=== PATIENT | male | born 1960 | race Caucasian/White ===

== ENCOUNTER 2021-07-27 13:04 | Outpatient (CLI) | payer MEDICARE, SELFPAY ==
--- NOTE | 2021-07-27 13:12 | CT_ITS ---
STUDY: LOW DOSE CT LUNG CANCER SCREENING REASON FOR EXAM: Male, 60 years old. NICOTINE DEPENDENCE. The patient smoked 1 pack per day for 40 years. RADIATION DOSAGE (If Supplied By Facility): CTDIvol = ( 3.02 ) mGy, DLP = ( 109.10 ) mGycm TECHNIQUE: No contrast was administered. Low dose technique was utilized (average mAS-38 and kVp 120). 1.25 mm axial source images with a slice interval of 1.25-mm were reconstructed in lung windows. 2.5 mm axial source images with a slice interval of 2.5-mm were reconstructed in lung windows. 5.0 mm axial source images with a slice interval of 5.0-mm were reconstructed in soft tissue windows. Nodule measured using lung windows on PACS and/or independent workstation with automated measurement of minimum and maximum diameter. Nodule measurement reported as average diameter rounded to the nearest whole number. Growth is defined as an increase ins size of greater than 1.5 mm. COMPARISON: None. NODULES: There is a 2.4 cm x 2.5 cm pleural-based nodular density in the posterior medial segment of the right lower lobe. Correlation with a PET scan is recommended. Emphysema: Hyperinflation. Diffuse emphysematous changes with bullous formation worse in the upper lobes. There is evidence of scarring at the lung apices worse on the right side. Increased interstitial markings at the lung bases with areas of confluence and bronchiectasis and subpleural blebs in keep with the scarring. Similar appearance is also seen along the posterior lateral aspect of the right upper lobe as well as the anterior medial aspect of the left upper lobe. Endobronchial lesion: None Aorta: Atherosclerotic plaque formation of the aortic arch. Coronary arteries: Coronary artery calcification. Heart: Unremarkable Pulmonary artery: Unremarkable Mediastinal nodes: Small benign appearing mediastinal lymph nodes. Other chest and abdominal findings: There is a 3 cm x 2.5 cm cyst in the anterior aspect of the dome of the liver. CT/Low Dose CT Lung Screening IMPRESSION: Lung-RADS category 4B - Chest CT with or without contrast, PET/CT and/or tissue sampling can be obtained depending on the probability of malignancy and comorbidities. IMPORTANT NOTES FOR USE: ACR Lung-RADS Version 1.1 Assessment Categories Release Date: 2018 Category: Coded 0-4 bases on nodule(s) with highest degree of suspicion. Negative screen is defined as categories 1 and 2; a positive screen is defined as categories 3 and 4. Category 3 and 4A nodules that are unchanged on interval CT should be coded as category 2, and individuals returned to screening in 12 months. Category 4X: Category 3 or 4 nodules with additional imaging findings that increase the suspicion of lung cancer, such as spiculation, GGN that doubles in size in 1 year, enlarged lymph notes, etc. Category Modifiers: S (significant finding unrelated to lung cancer) Electronically Signed: Cortes Valverde MD at 13:52 EST , Service support ,
== END 2021-07-27 23:59 | disposition short-term general hospital (02) ==
PROVIDERS: PCP Nurse Practitioner Family; Referring Provider Internal Medicine Pulmonary Disease; Visit Provider Internal Medicine Pulmonary Disease
DX: Z87.891 Personal history of nicotine dependence (principal)
CPT/HCPCS: 71271

== ENCOUNTER 2021-08-26 09:21 | Outpatient (CLI) | payer MEDICARE, SELFPAY ==
--- NOTE | 2021-08-26 10:30 | PET_ITS ---
EXAMINATION: FDG PET/CT INDICATIONS: A 61-year-old male with history of pulmonary nodularity. COMPARISON EXAMINATION: CT of the chest dated 07/27/21 INDEX LESION SIZE SUV INTERPRETATION Right lower lung-right lower lobe, linear 1.8 Quantitative criteria for viable neoplasm are not fulfilled, sequential radiologic investigation recommended Left upper lung-left upper lobe 1.0 (max) Quantitative criteria for viable neoplasm are not fulfilled, sequential radiologic investigation recommended TECHNIQUE: Following the intravenous administration of 14.17 mCi of F-18 deoxyglucose via the left antecubital fossa, multiplanar image acquisitions of the neck, chest, abdomen and pelvis to level of mid thigh, obtained at one hour post radiopharmaceutical administration contemporaneously interpreted with the current CT of the neck, chest, abdomen and pelvis to level of mid thigh, dated 08/26/[address] of the chest dated 07/27/21 reveal: SERUM GLUCOSE LEVEL: 96 mg/dl. HEIGHT: 75 inches. WEIGHT: 174 lbs. FINDINGS: 1. A non-nodular increase in glucose metabolism is defined in the right mid-lower posterior lung-right lower lobe generating a calculated maximal standard uptake value of 1.8. Uptake appears to correspond to interstitial changes defined on CT of the chest dated 08/26/21. 2. Subtle increase 18-F labeled glucose metabolism is manifest in the left mid anteromedial lung-left upper lobe corresponding to a linear density defined on CT of the chest dated 08/26/21. The calculated maximal standard uptake value is 1.0. Quantitative criteria for viable neoplasm are not fulfilled. 3. Normal physiologic distribution of the radiopharmaceutical is apparent in the hepatic (3.0) and splenic parenchyma, both renal units, bladder and visualized intestinal tract. The visualized portion of the cerebral cortical-subcortical structures demonstrate symmetric and preserved glucose metabolism. Diffuse radiopharmaceutical concentration is noted in all four quadrants of the abdomen and pelvis. Prominent radiopharmaceutical concentration is identified in the left ventricular myocardium commensurate with the fed state. Facilitated tracer uptake is noted in the anterior neck, laryngeal structures extending from the anterior commissure to the arytenoid cartilage without evidence of soft tissue thickening most consistent with physiologic tracer uptake. Prominent tracer uptake is noted in the ascending and descending thoracic, abdominal aorta commensurate with activated leukocytes associated with atherosclerotic plaque formation. Pertinent CT findings are as follows: CHEST: Emphysematous changes are defined in the bilateral upper lung zones. Additional parenchymal changes manifest in the bilateral hemithorax demonstrate no evidence of quantitatively significant increased FDG uptake. A nodular density visualized in the right lower posteromedial lung-right lower lobe is non-glucose avid. There is atherosclerotic calcification defined in the thoracic aorta without evidence of dilatation-aneurysm formation. Coronary arterial calcification is observed. ABDOMEN AND PELVIS: Photopenic abnormalities are noted within the hepatic parenchyma associated with attenuation defects manifest on CT of the abdomen and pelvis dated 08/26/21 commensurate with cyst formation. There is atherosclerotic calcification defined in the abdominal aorta without evidence of dilatation-aneurysm formation. Pelvic arterial calcification is demonstrated. Calcifications are manifest within the pancreatic head-uncinate process without evidence of quantitatively significant increased glucose metabolism. Bilateral inguinal soft tissue with fatty hilus is ametabolic. Dystrophic calcification is manifest within the prostate gland without evidence of facilitated FDG uptake. SKELETAL: Degenerative changes are noted in the cervical, thoracic and lumbar spine without evidence of increased radiopharmaceutical concentration. PET/PET/CT Tumor Base -Thigh Init IMPRESSION: 1. NEGATIVE EXAMINATION. There is no definitive quantitative scintigraphic evidence of viable neoplasm. 2. Increased fluorine labeled glucose metabolism defined in the right lower lung-right lower lobe corresponding to facilitated interstitial changes and left upper lung-left upper lobe corresponding to a non-calcified linear density do not fulfill quantitative criteria for viable neoplasm. (Huertas et al, Annals of Internal Medicine, 138:724, 2003). 3. Metabolic and/or anatomic stability may be ensured in the bilateral lung abnormalities with repeat FDG PET study and/or CT of the thorax in 3-6 months if clinically indicated. (Xiu, Journal of Nuclear Medicine 45:88, P2004 Jed, Seminars in Thoracic and Cardiovascular Surgery 14:292, 2002). 4. The nodular parenchymal density noted in the right lower posteromedial lung-right lower lobe demonstrates no evidence of quantitatively significant, discernible increased tracer uptake. Electronic Signature Zev Damon D.O. Accurate Quantification of SUVs for this report are calculated using the exclusive [employer], ([place].S. Patent No. 10, [id number] 983). Standardization and correction of the FDG SUV metric exclusively available with [employer] intellectual property, allow for vendor non-specific objective quantitative sequential FDG PET-CT comparison and otherwise unobtainable optimization of the sensitivity and specificity of the examination. Electronically Signed: Zev Damon DO at 19:16 EST ,
[2021-08-26 10:35] LABS: Absolute Neutrophil Count 3.4 X10^3/uL (2.0-7.7); Basophil# 0.09 X10^3/uL; Basophil% 1.3 % (0-1); Eosinophil# 0.27 X10^3/uL; Eosinophils% 3.8 % (0-5); Hematocrit 48.8 % (40-54); Hemoglobin 16.5 g/dL (13.0-16.5); Mean Corp Hgb Conc 33.8 g/dL (32-36); Mean Corpuscular Volume 94.8 fL (80-94); Mean Platelet Vol. 10.7 fl (6.2-12.0); Monocyte# 0.59 X10^3/uL; Monocyte% 8.3 % (0-10); NRBC Flagged by Analyzer 0 % (0-5); Neutrophil # 3.43 X10^3/uL (2.7-7.7); Neutrophil % 48.3 % (47-70); Platelet Count 314 K/mm3 (150-450); RBC Distribution Width CV 13.1 % (11.6-14.6); RBC Distribution Width SD 45.8 fl (35.1-43.9); Red Blood Count 5.15 M/mm3 (4.6-6.2); White Blood Count 7.1 K/mm3 (4.4-11.0)
[2021-08-26 10:37] LABS: Erythrocyte Sedimentation Rate 9 mm/hr (0-20)
[2021-08-26 13:33] LABS: AST(SGOT) 13 U/L (15-37); Alanine Aminotransfer ALT/SGPT 18 U/L (16-61); Albumin, Serum 3.7 g/dL (3.2-5.0); Alkaline Phosphatase 71 U/L (45-117); Anion Gap 2 (5-15); BUN 8 mg/dL (7-18); Bilirubin, Direct 0.11 mg/dL (0.00-0.30); CRP < 2.90 mg/L (0.0-3.0); Chloride 109 mmol/L (98-107); Creatinine, Serum 0.82 mg/dL (0.70-1.30); EST Glomerular Filtration Rate 101 mL/min (>60); Est Glom Filt Rate - Afr Amer 123 mL/min (>60); Globulin 3.9 g/dL (2.2-4.2); Potassium 4.2 mmol/L (3.5-5.1); Protein, Total 7.6 g/dL (6.4-8.2); Sodium Level 139 mmol/L (136-145)
[2021-08-27 15:08] LABS: Anti-Scleroderma-70 AB <0.2 AI (0.0-0.9); SJOGREN'S Anti-SS-A test 0.2 AI (0.0-0.9); SJOGREN'S Anti-SS-B test < 0.2 AI (0.0-0.9)
[2021-08-28 00:06] LABS: Angiotensin Convert Enzyme 42 U/L (14-82); Cytoplasmic Ab (C-ANCA) <1:20 titer (Neg:<1:20)
[2021-08-28 11:21] LABS: Anti-Smooth Muscle ABS 7 Units (0-19); CCP IgG Antibodies 6 units (0-19); Perinuclear Ab (P-ANCA) <1:20 titer (Neg:<1:20)
[2021-08-28 12:07] LABS: ANTINUCLEAR ANTIBODIES DIRECT Negative (Negative); Anti-dsDNA Ab <1 IU/mL (0-9)
== END 2021-08-26 23:59 | disposition home or self-care (01) ==
PROVIDERS: PCP Nurse Practitioner Family; Referring Provider Internal Medicine Pulmonary Disease; Visit Provider Internal Medicine Pulmonary Disease
DX: J84.112 Idiopathic pulmonary fibrosis (principal); R91.1 Solitary pulmonary nodule
CPT/HCPCS: 78815; 80051; 80076; 82164; 82565; 83516; 84520; 85025; 85652; 86038; 86140; 86200; 86225; 86235; 86256; 86431; A9552

== ENCOUNTER 2023-08-29 14:22 | Inpatient (IN) | payer MEDICARE, SELFPAY ==
[2023-08-29] VITALS (7 sets, daily range): BP systolic 115–151; BP diastolic 69–105; PULSE 93–115; RESP 15–21; TEMP 36.7–37.2; O2SAT 91–100; BMI 23.5; BMI 18.3
--- NOTE | 2023-08-29 14:32 | CT_ITS ---
STUDY: CT LUMBAR SPINE WITHOUT CONTRAST REASON FOR EXAM: Male, 63 years old. back pain Pt experiencing multiple falls since having the flu approx 3 weeks ago. Drinks approx 12 beers daily. Was oppositional to coming with ems but police told pt he had to. Pt was ok with that. Denied SI. RADIATION DOSAGE (If Supplied By Facility): CTDIvol = ( 13.82 ) mGy, DLP = ( 546.53 ) mGycm TECHNIQUE: The patient was scanned in a multi detector CT scanner. High resolution transaxial imaging was performed. Images were obtained from to . Sagittal and coronal images were reconstructed. Individualized dose optimization techniques were used for this CT. COMPARISON: None FINDINGS: Normal lumbar lordosis. There is no substantial scoliosis. There is an acute compression fracture of the T12 vertebral body with moderate loss of height at approximately 60-70% and mild retropulsion of the posterior cortex that does not cause central canal stenosis. No additional vertebral body fractures are present. There are no acute fractures of the transverse processes or remaining posterior elements. No lytic or blastic lesions are seen. Numerous calcifications are seen in the head of the pancreas consistent with sequela chronic pancreatitis. 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 L1-2: Mild anterior endplate spurring. Normal disc height and morphology. Normal bilateral facet joints. Normal central canal and bilateral lateral recesses. Normal bilateral intervertebral neural foramina. L2-3: Normal endplates. Normal disc height and morphology. Normal bilateral facet joints. Normal central canal and bilateral lateral recesses. Normal bilateral intervertebral neural foramina. L3-4: Normal endplates. Normal disc height and morphology. Normal bilateral facet joints. Normal central canal and bilateral lateral recesses. Normal bilateral intervertebral neural foramina. L4-5: Normal endplates. Normal disc height and morphology. Normal bilateral facet joints. Normal central canal and bilateral lateral recesses. Normal bilateral intervertebral neural foramina. L5-S1: Minimal anterior endplate spurring and disc space narrowing without bulging. Normal bilateral facet joints. Normal central canal and bilateral lateral recesses. Normal bilateral intervertebral neural foramina. Normal visualized paraspinous soft tissue structures. CT/Spine Lumbar without Contrast IMPRESSION: 1. Acute high-grade compression fracture of the T12 vertebral body, but with mild retropulsion of the cortex. A focal kyphotic deformity is present at the T11-T12 level due to loss of T12 vertebral body height. No central canal compromise is present, however may consider consulting with interventional radiology or the spine service for possible kyphoplasty given the focal deformity. 2. Multilevel degenerative changes, as described above. Electronically Signed: Og Benavides MD at 15:23 EST ,
--- NOTE | 2023-08-29 14:33 | EKG12_ITS ---
Test Reason : Blood Pressure : / mmHG Vent. Rate : 092 BPM Atrial Rate : 092 BPM P-R Int : 162 ms QRS Dur : 080 ms QT Int : 386 ms P-R-T Axes : 070 067 066 degrees QTc Int : 477 ms Normal sinus rhythm Normal ECG Confirmed by KURT ADHIKARI, JUAN JOSÉ ([id number]), associate entertainment editor IDANIA ALANIS ([id number]) on 09/05/2023 9:51:20 AM Referred By: Confirmed By:LAW HICKS MD
--- NOTE | 2023-08-29 14:37 | ED.VIS.FALL ---
HPI HPI - Fall History of Present Illness Chief Complaint: Fall Narrative Narrative: 63-year-old male presents via EMS after after he fell this morning and could not get up. He states he was on the floor for hours and crawled to the couch and called his niece who called EMS. He is fallen very frequently since he had the flu 3 weeks ago. He states he drinks 12 beers a day. He urinates into a bucket next to him so he does not have to get up very much. Today he complains of low back pain from the fall. He denies hitting his head. He is on no medications and states he has not seen a doctor in 2 years. He denies chest or abdominal pain. No nausea or vomiting. No extremity pain. PFSH PFSH Medical History unable to obtain Home Medications NK 08/29/23 [History Last Taken Unknown] Allergy/AdvReac Type Severity Reaction Status Date / Time No Known Allergies Allergy Verified 08/29/23 14:24 Social History Smoking Status: Unknown if ever smoked ROS ROS ED ROS Narrative Constitutional: Negative for fever, chills, malaise. CVS: Negative for chest pain, syncope. Respiratory: Negative for shortness of breath. GI: Negative for abdominal pain, nausea, vomiting. Neuro: Negative for headache, motor/sensory dysfunction. EXAM Physical Exam Narrative Exam Narrative: CONST: Patient sitting in no acute distress. Disheveled, smells of urine. EYES: Normal inspection. PERRL, EOMI. Head: Normocephalic atraumatic. NECK: Normal inspection. RESP: No respiratory distress, CTAB. CVS: Regular rate and rhythm, no murmur, no gallop. ABD: Soft and nontender, no guarding or rebound, nondistended. Back: Normal inspection, bruising and tenderness diffusely over the lumbar spine. SKIN: Color normal, no rash, warm, dry, intact. EXTREMITIES: Normal appearance, full ROM upper and lower extremities, 5/5 strength, normal sensation, 2+ radial DP pulses NEURO: Oriented x4. PSYCH: Normal affect. Const Vital Signs: 08/29/23 14:24 08/29/23 14:57 Temperature 98.1 F Temperature Source Oral Pulse Rate 112 H Respiratory Rate 20 H Respiratory Effort Normal Blood Pressure 151/105 H Blood Pressure Mean 120 Pulse Ox 99 Oxygen Delivery Method Room Air Room Air MDM MDM MDM Narrative Medical decision making narrative: History gathered from: Patient and EMS Differential: Recurrent falls, back contusion, fracture, electrolyte abnormality Patient has had multiple falls over the last 3 weeks. He is alcoholic. Today fell and was on the ground for multiple hours and complains of low back pain. He denies hitting his head. He is disheveled and smells of urine. He does not look sick or toxic. BP is 151/105, HR 112, otherwise normal vital signs. He has no signs of head injury. Heart is regular rate and rhythm, coarse lung sounds from likely COPD, abdomen soft and nontender. He has bruising over the lumbar and flank area and lower lumbar tenderness. He has chronic bruising of his extremities but no acute injuries. He is moving extremities to full range of motion and distal pulses are intact. Labs show normal white count and hemoglobin and thrombocytopenia at 49. This explains his chronic bruising but he has no evidence of active bleeding. Sodium is 131. CK is 1577 with normal renal function. There is mild transaminitis from chronic alcohol use. He has no abdominal pain or tenderness. CT brain shows no acute findings. CT lumbar spine shows high-grade T12 compression fracture with mild retropulsion but no central canal compromise. His lower extremity MSPs are intact. Patient's pain was treated with IV morphine and Zofran. Case was discussed with hospitalist for admission who will order alcohol prophylaxis. Lab Data Attestation: I reviewed the patient's lab results. Labs: Laboratory Results - last 24 hr 08/29/23 08/29/23 14:45 14:51 WBC 4.6 RBC 4.40 L Hgb 14.2 Hct 39.7 L MCV 90.2 MCH 32.3 H MCHC 35.8 RDW Std Deviation 45.4 H RDW Coeff of Yousuf 13.8 Plt Count 49 L* MPV 11.9 Immature Gran % (Auto) 0.900 Neut % (Auto) 69.9 Lymph % (Auto) 12.1 L [place] % (Auto) 16.5 H Eos % (Auto) 0.2 Baso % (Auto) 0.4 Absolute Neuts (auto) 3.2 Absolute Lymphs (auto) 0.56 L Nucleated RBC % 0 Differential Comment SCANNED Diff Path Review May foll Platelet Estimate MKD DEC Sodium 131 L Potassium 3.6 Chloride 98 Carbon Dioxide 24.0 Anion Gap 9 BUN 5 L Creatinine 0.64 L Estim Creat Clear Calc 86.07 Est GFR (MDRD) Af Amer 162 Est GFR (MDRD) Non-Af 134 BUN/Creatinine Ratio 7.8 L Glucose 85 Calcium 8.7 Total Bilirubin 1.30 H AST 167 H ALT 106 H Alkaline Phosphatase 130 H Total Creatine Kinase 1577 H Total Protein 7.0 Albumin 3.4 Globulin 3.6 Albumin/Globulin Ratio 0.9 Urine Color Yellow Urine Clarity Sl. Cloudy Urine pH 7.0 Ur Specific Thompson 1.005 Urine Protein Negative Urine Glucose (UA) Normal Urine Ketones 15 H Urine Occult Blood 10 H Urine Nitrite Negative Urine Bilirubin Negative Urine Urobilinogen 1 H Ur Leukocyte Esterase Negative Urine RBC 0-5 SEEN Urine WBC 0 SEEN Ur Squamous Epith Cells 0 SEEN Urine Bacteria 0 SEEN Urine Mucus 0 SEEN Radiography Diagnostic Testing: Clinical Impression(s) from Imaging Studies Lumbar Spine CT 08/29/23 14:32 IMPRESSION: 1. Acute high-grade compression fracture of the T12 vertebral body, but with mild retropulsion of the cortex. A focal kyphotic deformity is present at the T11-T12 level due to loss of T12 vertebral body height. No central canal compromise is present, however may consider consulting with interventional radiology or the spine service for possible kyphoplasty given the focal deformity. 2. Multilevel degenerative changes, as described above. Electronically Signed: Og Benavides MD at 15:23 EST Reading Location ID and State: [address] [place] [address] , Service support , Chest X-Ray 08/29/23 15:06 IMPRESSION: 1. No demonstrated consolidation or infiltrates or pleural effusion. Mild cystic emphysematous changes and hyperinflation of both lungs noted. 2. The patient has an acute T12 vertebral body compression deformity not visualized by plain film was seen on the CT of the lumbar spine performed on the same day. Electronically Signed: Og Benavides MD at 15:25 EST Reading Location ID and State: [facility] / [place] , Service support , Brain CT 08/29/23 15:12 IMPRESSION: 1. Chronic involutional changes of the brain. Electronically Signed: Og Benavides MD at 15:31 EST , ED attending interpretation of 1-view chest x-ray shows normal heart size, no displaced rib fracture or pneumothorax. EKG Initial EKG: Attestation: I personally reviewed and interpreted this EKG as follows: Interpretation: Sinus Rhythm and No Acute Injury Pattern Comments: Normal sinus rhythm at 92 bpm Normal intervals, no acute ischemic changes Discharge Plan Triage Chief Complaint: Fall ED Midlevel Provider: Li Ashley ED Provider: Ida Blanca Dx/Rx/DC Orders Clinical Impression: Recurrent falls, Alcohol abuse, Thrombocytopenia, T12 compression fracture, Acute hyponatremia, Transaminitis Primary Care Provider: Care Physician,No Primary
--- NOTE | 2023-08-29 15:00 | ED.RN ---
pt presents to ER covered in urine, disheveled with inappropriate responses to questions. multiple bruises noted on the patients body in various stages of healing. pt states this is from when he falls. does not know the last time he fell. states I fall every time that I stand up . patient c/o pain and states I hurt all over but is not able to describe any specific injury. patient oriented to self and place. states he drinks about a 12 pack a day. had last drink today.
[2023-08-29 15:04] LABS: Bacteria 0 SEEN /hpf (None Seen); Color, Urine Yellow (Yellow); Glucose, Dipstick Normal (Normal); Ketone-Dipstick 15 mg/dl (Negative); Leukocyte Esterase-Dipstick Negative /ul (Negative); Mucous, Urine 0 SEEN /hpf (<or=2+); Nitrite-Dipstick Negative (Negative); Occult Blood-Urine 10 /ul (Negative); Protein-Dipstick Negative (Negative); Specific Gravity, Urine 1.005 (1.002-1.030); Squamous Epithelial Cells - UA 0 SEEN /hpf (0-5); Urine Bilirubin Dipstick Negative (Negative); Urine Clarity Sl. Cloudy (Clear); Urine Urobilinogen 1 mg/dl (Normal); White Blood Cells 0 SEEN /hpf (0-5)
--- NOTE | 2023-08-29 15:06 | RAD_ITS ---
STUDY: X-RAY CHEST REASON FOR EXAM: Male, 63 years old. fall TECHNIQUE: 2 AP portable view of the chest. COMPARISON: None. FINDINGS: No demonstrated consolidation or infiltrates or pleural effusion. Mild cystic emphysematous changes and hyperinflation of both lungs noted. The lungs are clear and expanded. There is no demonstrated pleural abnormality. Normal size heart. Normal mediastinum and wyatt. Normal visualized pulmonary arteries. There is atherosclerotic tortuosity of the aortic arch and descending thoracic aorta. There are diffuse degenerative changes of the visualized thoracic spine. Normal visualized ribs, clavicles, and shoulders. There is no demonstrated abnormality of the visualized soft tissue structures of the upper abdomen. RAD/Chest 1 View (Portable) IMPRESSION: 1. No demonstrated consolidation or infiltrates or pleural effusion. Mild cystic emphysematous changes and hyperinflation of both lungs noted. 2. The patient has an acute T12 vertebral body compression deformity not visualized by plain film was seen on the CT of the lumbar spine performed on the same day. Electronically Signed: Og Benavides MD at 15:25 EST ,
[2023-08-29 15:08] LABS: Absolute Lymphocyte Count 0.56 X10^3/uL (0.83-4.51); Absolute Neutrophil Count 3.2 X10^3/uL (2.0-7.7); Basophil# 0.02 X10^3/uL; Basophil% 0.4 % (0-1); Eosinophil# 0.01 X10^3/uL; Eosinophils% 0.2 % (0-5); Hematocrit 39.7 % (40-54); Hemoglobin 14.2 g/dL (13.0-16.5); Lymphocyte # 0.56 X10^3/ul (0.83-4.51); Lymphocyte % 12.1 % (19-41); Mean Corp Hgb Conc 35.8 g/dL (32-36); Mean Corpuscular Hgb 32.3 pg (27.0-32.0); Mean Corpuscular Volume 90.2 fL (80-94); Mean Platelet Vol. 11.9 fl (6.2-12.0); Monocyte# 0.76 X10^3/uL; Monocyte% 16.5 % (0-10); NRBC Flagged by Analyzer 0 % (0-5); Neutrophil # 3.23 X10^3/uL (2.7-7.7); Neutrophil % 69.9 % (47-70); POSITIVE COUNT YES; POSITIVE DIFFERENTIAL YES; RBC Distribution Width CV 13.8 % (11.6-14.6); RBC Distribution Width SD 45.4 fl (35.1-43.9); White Blood Count 4.6 K/mm3 (4.4-11.0)
[2023-08-29 15:12] LABS: Red Blood Cells-Urine 0-5 SEEN /hpf (0-5)
--- NOTE | 2023-08-29 15:12 | CT_ITS ---
STUDY: CT BRAIN WITHOUT CONTRAST REASON FOR EXAM: Male, 63 years old. Head injury RADIATION DOSAGE (If Supplied By Facility): CTDIvol = ( 44.99 ) mGy, DLP = ( 779.24 ) mGycm TECHNIQUE: Transaxial CT imaging of the brain was performed without administration of intravenous contrast material. Individualized dose optimization techniques were used for this CT. COMPARISON: None. FINDINGS: Normal soft tissue structures. Normal calvarium. There is no visualized skull fracture or subdural hemorrhage or midline shift. No parenchymal edema is present. There is mild cerebral atrophy with widening of the extra-axial spaces and ventricular dilatation. There are areas of decreased attenuation within the white matter tracts of the supratentorial brain, consistent with microvascular disease changes. Normal basal ganglia and thalami. Normal brainstem. Normal cerebellum. There is no intracranial hemorrhage. There are no findings of an acute ischemic infarction. Normal visualized paranasal sinuses. Small benign left frontal sinus osteoma. CT/Brain/Head without Contrast IMPRESSION: 1. Chronic involutional changes of the brain. Electronically Signed: Og Benavides MD at 15:31 EST ,
[2023-08-29 15:17] LABS: Differential Indicated SCAN CRITERIA MET; Platelet Count 49 K/mm3 (150-450)
[2023-08-29 15:20] LABS: ALB/GLOB Ratio 0.9 RATIO (0.9-2.4); AST(SGOT) 167 U/L (15-37); Alanine Aminotransfer ALT/SGPT 106 U/L (16-61); Albumin, Serum 3.4 g/dL (3.2-5.0); Alkaline Phosphatase 130 U/L (45-117); Anion Gap 9 (5-15); BUN 5 mg/dL (7-18); BUN/Creat Ratio 7.8 RATIO (10-20); Calcium,Total 8.7 mg/dL (8.5-10.1); Chloride 98 mmol/L (98-107); Creatinine, Serum 0.64 mg/dL (0.70-1.30); EST Glomerular Filtration Rate 134 mL/min (>60); Est Glom Filt Rate - Afr Amer 162 mL/min (>60); Estimated Creatinine Clearance 86.07 ml/min; Globulin 3.6 g/dL (2.2-4.2); Glucose 85 mg/dL (74-106); Potassium 3.6 mmol/L (3.5-5.1); Sodium Level 131 mmol/L (136-145)
[2023-08-29 15:27] LABS: Differential Comment SCANNED; Platelet Estimate MKD DEC (ADEQ)
[2023-08-29] MEDS: 0.9% Normal Saline (1000mL) 1,000 ML 1000 ML IV (15:32)
[2023-08-29] MEDS: Morphine 4 MG/ML Syringe IV (15:42)
[2023-08-29] MEDS: Ondansetron 4 MG/2 ML Vial IV (15:42)
--- NOTE | 2023-08-29 15:57 | HP.PCM.HOS_ITS ---
HPI - General General Date of Admission: 08/29/23 Date of Service: 08/29/23 Chief Complaint: Drinks heavy alcohol 12 bottles of beer every day. Shaking. Recurrent fall HPI Narrative JULI DAVIDSON, is a 63 M with history of chronic alcohol use and seizure 5 years ago came to ED after he had multiple falls after he had flu 3 weeks ago. Veronica ent was brought to ED by EMS and found him laying on the couch with multiple beer cans with bucket to pee because every time he gets up he falls. He has not eaten for 3 to 4 days. As per EMS, his whole living room in the house was upside down with blood on several wall and carpet, table not down to the ground and broken in the hallway. He send he drinks 12 beers of 12 ounces every day. He states that he drinks too much. He has bruises all over the body including knees and simply fell on his lower back. Patient also has acute on chronic lumbar back pain with radiation to both lower extremity. He states it goes all the way to the toes but history of migration of pain is uncertain because of history of alcohol use. Patient very dehydrated in ED and started on IV fluid normal saline. [facility] Medical History unable to obtain Home Medications NK 08/29/23 [History Last Taken Unknown] Allergy/AdvReac Type Severity Reaction Status Date / Time No Known Allergies Allergy Verified 08/29/23 14:24 Social History Smoking Status: Unknown if ever smoked ROS ROS Narrative Complete 14 system ROS as patient is shaking, in alcohol withdrawal. Constitutional: Reports fatigue and weakness. Could not get up or walk. No fever. HEENT: Reports systems reviewed and no addt'l complaints, except as documented Respiratory/Chest: No acute shortness of breath or respiratory distress or wheezing. CVS: Denies chest pain pressure or tightness Gastrointestinal: Denies coffee ground emesis, hematemesis or vomiting Genitourinary: Denies burning urination or new urinary tract symptoms Musculoskeletal: Multiple falls every day as described in HPI. Pain over the back. Neurologic: Had alcohol-related seizure in the past skin: Multiple bruises all over the body Endocrinology: Reports systems reviewed and no addt'l complaints, except as documented Hematologic/Lymphatic: Reports systems reviewed and no addt'l complaints, except as documented Rest 14 ROS are negative except as mentioned in HPI Vital Signs Vital Signs Vital Signs: 08/29/23 14:24 08/29/23 14:57 Temperature 98.1 F Temperature Source Oral Pulse Rate 112 H Respiratory Rate 20 H Respiratory Effort Normal Blood Pressure 151/105 H Blood Pressure Mean 120 Pulse Ox 99 Oxygen Delivery Method Room Air Room Air Weight Weight: 150 lb 5.684 oz Body Mass Index (BMI) 23.5 Physical Exam Narrative General: Awake, oriented x 3. Cooperative. In pain HEENT: Atraumatic, PERRLA, EOMI, Normocephalic Oral: Oral mucosa very dry. No Gingival or Mucosal Lesions/ Ulcerations Neck: Supple, No JVD, Negative Carotid Bruits Chest wall/Lungs: Air entry diminished in bilateral lung bases. No crepitation/rhonchi Cardiovascular: Regular rate, Regular Rhythm, Normal S1, Normal S2, No M/G/R Abdomen: Bowel Sounds Present, Soft, Non Tender, Non-Distended : Spontaneously voiding urine. No dysuria. No renal angle tenderness. No suprapubic tenderness. Extremities: No edema, Capillary Refill Less than 3 Seconds Skin: Bruise, scabs, ecchymosis and open wounds all over the body including these Musculoskeletal: Tenderness present to lower extremities. Muscle strength 4/5 at knees and hip joints but painful and tender. Spine: Patient could not roll on the sides or back because of pain. Tenderness present on T12 to lumbar spine. Neurological: Cranial nerves II-XII grossly intact, DTR 2+/4. Sensation around perineal region and testicles. Psych/Mental Status: Normal Affect, Appropriate. Results Lab / Micro Data 08/29/23 14:45 08/29/23 14:45 Labs: Laboratory Results - last 24 hr 08/29/23 14:45: WBC 4.6, RBC 4.40 L, Hgb 14.2, Hct 39.7 L, MCV 90.2, MCH 32.3 H, MCHC 35.8, RDW Std Deviation 45.4 H, RDW Coeff of Yousuf 13.8, Plt Count 49 L*, MPV 11.9, Immature Gran % (Auto) 0.900, Neut % (Auto) 69.9, Lymph % (Auto) 12.1 L, [place] % (Auto) 16.5 H, Eos % (Auto) 0.2, Baso % (Auto) 0.4, Absolute Neuts (auto) 3.2, Absolute Lymphs (auto) 0.56 L, Nucleated RBC % 0, Differential Comment SCANNED, Diff Path Review May foll, Platelet Estimate MKD DEC, Sodium 131 L, Potassium 3.6, Chloride 98, Carbon Dioxide 24.0, Anion Gap 9, BUN 5 L, Creatinine 0.64 L, Estim Creat Clear Calc 86.07, Est GFR (MDRD) Af Amer 162, Est GFR (MDRD) Non-Af 134, BUN/Creatinine Ratio 7.8 L, Glucose 85, Calcium 8.7, Total Bilirubin 1.30 H, AST 167 H, ALT 106 H, Alkaline Phosphatase 130 H, Total Protein 7.0, Albumin 3.4, Globulin 3.6, Albumin/Globulin Ratio 0.9 08/29/23 14:51: Urine Color Yellow, Urine Clarity Sl. Cloudy, Urine pH 7.0, Ur Specific [place] 1.005, Urine Protein Negative, Urine Glucose (UA) Normal, Urine Ketones 15 H, Urine Occult Blood 10 H, Urine Nitrite Negative, Urine Bilirubin Negative, Urine Urobilinogen 1 H, Ur Leukocyte Esterase Negative, Urine RBC 0-5 SEEN, Urine WBC 0 SEEN, Ur Squamous Epith Cells 0 SEEN, Urine Bacteria 0 SEEN, Urine Mucus 0 SEEN Imaging Radiology Impression Lumbar Spine CT 08/29/23 14:32 IMPRESSION: 1. Acute high-grade compression fracture of the T12 vertebral body, but with mild retropulsion of the cortex. A focal kyphotic deformity is present at the T11-T12 level due to loss of T12 vertebral body height. No central canal compromise is present, however may consider consulting with interventional radiology or the spine service for possible kyphoplasty given the focal deformity. 2. Multilevel degenerative changes, as described above. Electronically Signed: Og Benavides MD at 15:23 EST Reading Location ID and State: [facility] / [place] , Service support , Chest X-Ray 08/29/23 15:06 IMPRESSION: 1. No demonstrated consolidation or infiltrates or pleural effusion. Mild cystic emphysematous changes and hyperinflation of both lungs noted. 2. The patient has an acute T12 vertebral body compression deformity not visualized by plain film was seen on the CT of the lumbar spine performed on the same day. Electronically Signed: Og Benavides MD at 15:25 EST , Brain CT 08/29/23 15:12 IMPRESSION: 1. Chronic involutional changes of the brain. Electronically Signed: Og Benavides MD at 15:31 EST , Assessment & Plan Assessment/Plan (1) Acute hyperactive alcohol withdrawal delirium: (2) Recurrent falls: PLAN: Plan This is a 63-year-old gentleman being admitted for acute alcohol withdrawal and severe back pain with multiple falls on single day. Patient was very resistant and opposed to EMS for coming to ED. 1. Acute alcohol withdrawal syndrome with history of chronic alcohol use, dependence and tolerance: Patient is being admitted to MedSurg floor. Patient on phenobarbital based order set along with other adjunctive medications g abapentin, Bentyl, Vistaril, clonidine, Klonopin as needed for alcohol withdrawal symptom control. Patient is on thiamine and folate acid. CIWA monitor. biodiesel product development manager consulted. 2. Acute on recurrent fall probably due to chronic alcohol use, generalized weakness, disequilibrium: PT and OT ordered. Vitamin B12, and folate ordered. 3. Acute compression fracture of T12 vertebral body: Patient has tenderness over T12 vertebra but he can lift both lower extremities, muscle strength 4/5 with intact perineal sensation, voiding urine. Lumbar spine CT shows acute high-grade compression fracture of T12 vertebral body with mild retropulsion of the cortex. No central canal compromise. Loss of T12 vertebral body height with focal kyphotic deformity. When patient is out of alcohol withdrawal can have evaluation for kyphoplasty but currently out of the question. 4. Most likely chronic hyponatremia from beer potomania associated with low solute intake: Patient has not been eating or drinking for 4 days. Gradual bringing up sodium to around 137 138. Last sodium was 139 in August 2021. Patient had 1 L of normal saline in ED. Ringer lactate ordered. 5. Acute/subacute alcoholic hepatitis: Liver chemistry shows TB 1.3, ALT AST 106, 167 respectively, alkaline phosphatase 130. CCK 1577 showing mild rhabdomyolysis. Continue IV fluid normal saline. Patient does not have right upper quadrant abdominal pain or tenderness. 6. Multiple subcutaneous bruise/wound and ecchymosis: Patient has thrombocytopenia 49,000. Previous platelet count was 314,000 in August 2021. INR 0.9. DVT prophylaxis: Moderate to high risk. Pharmacological prophylaxis contraindicated due to multiple bruises and wounds and severe thrombocytopenia. Bilateral SCDs Living will/advanced directive/end of life care: Patient does not have living will or advanced directive. Patient does not have dilated power of family law attorney for health. After discussion of benefits/risks procedures involved with full code, DNR CC arrest and DNR CC, the patient opted for DNR CC arrest with no intubation. Patient states when my and time comes, let me go. Patient doesn't want artificial life support including intubation, tube feed, ventilator and/chest compression, central venous catheter, vasopressor and DC s hock if needed Total time spent in ikst-co-[id number] encounter in discussion of advanced directive 17 minutes. Laboratory Results 08/29/23 14:45: WBC 4.6, RBC 4.40 L, Hgb 14.2, Hct 39.7 L, MCV 90.2, MCH 32.3 H, MCHC 35.8, RDW Std Deviation 45.4 H, RDW Coeff of Yousuf 13.8, Plt Count 49 L*, MPV 11.9, Immature Gran % (Auto) 0.900, Neut % (Auto) 69.9, Lymph % (Auto) 12.1 L, [place] % (Auto) 16.5 H, Eos % (Auto) 0.2, Baso % (Auto) 0.4, Absolute Neuts (auto) 3.2, Absolute Lymphs (auto) 0.56 L, Nucleated RBC % 0, Differential Comment SCANNED, Diff Path Review November salima Platelet Estimate MKD DEC, PT 12.5, INR 0.9, Sodium 131 L, Potassium 3.6, Chloride 98, Carbon Dioxide 24.0, Anion Gap 9, BUN 5 L, Creatinine 0.64 L, Estim Creat Clear Calc 86.07, Est GFR (MDRD) Af Amer 162, Est GFR (MDRD) Non-Af 134, BUN/Creatinine Ratio 7.8 L, Glucose 85, Calcium 8.7, Total Bilirubin 1.30 H, AST 167 H, ALT 106 H, Alkaline Phosphatase 130 H, Total Creatine Kinase 1577 H, Total Protein 7.0, Albumin 3.4, Globulin 3.6, Albumin/Globulin Ratio 0.9 08/29/23 14:51: Urine Color Yellow, Urine Clarity Sl. Cloudy, Urine pH 7.0, Ur Specific [place] 1.005, Urine Protein Negative, Urine Glucose (UA) Normal, Urine Ketones 15 H, Urine Occult Blood 10 H, Urine Nitrite Negative, Urine Bilirubin Negative, Urine Urobilinogen 1 H, Ur Leukocyte Esterase Negative, Urine RBC 0-5 SEEN, Urine WBC 0 SEEN, Ur Squamous Epith Cells 0 SEEN, Urine Bacteria 0 SEEN, Urine Mucus 0 SEEN, Urine Opiates Screen NEGATIVE, Urine Methadone Screen NEGATIVE, Ur Barbiturates Screen NEGATIVE, Ur Phencyclidine Scrn NEGATIVE, Ur Amphetamines Screen NEGATIVE, MDMA (Ecstasy) Screen NEGATIVE, U Benzodiazepines Scrn NEGATIVE, Urine Cocaine Screen NEGATIVE, U Cannabinoids Screen NEGATIVE, Ur Drug Screen Comment Clinical Impression(s) from Imaging Studies Lumbar Spine CT 08/29/23 14:32 IMPRESSION: 1. Acute high-grade compression fracture of the T12 vertebral body, but with mild retropulsion of the cortex. A focal kyphotic deformity is present at the T11-T12 level due to loss of T12 vertebral body height. No central canal compromise is present, however may consider consulting with interventional radiology or the spine service for possible kyphoplasty given the focal deformity. 2. Multilevel degenerative changes, as described above. Chest X-Ray 08/29/23 15:06 IMPRESSION: 1. No demonstrated consolidation or infiltrates or pleural effusion. Mild cystic emphysematous changes and hyperinflation of both lungs noted. 2. The patient has an acute T12 vertebral body compression deformity not visualized by plain film was seen on the CT of the lumbar spine performed on the same day. Brain CT 08/29/23 15:12 IMPRESSION: 1. Chronic involutional changes of the brain. Electronically Signed: Og Benavides MD at 15:31 EST Reading Location ID and State: [facility] / [place] , Service support , Charges/Coding Visit Charges Inpatient E&M: 51301 Init Hosp L3 Procedures Hospitalists Procedures: 63531 Advncd Care Plan 30 Min
[2023-08-29 15:58] LABS: CPK Total, Creatine Kinase 1577 U/L (39-308)
[2023-08-29 16:13] LABS: International Normalized Ratio 0.9; Prothrombin Time (Protime)PT. 12.5 SECONDS (11.7-14.9)
--- NOTE | 2023-08-29 16:17 | NURSING ---
MED SURG NIKITA BACK PAIN, FX
[2023-08-29 16:28] LABS: Amphetamine Urine VISTA NEGATIVE (<1000 ng/mL); Barbiturate Urine VISTA NEGATIVE (< 200 ng/mL); Benzodiazepine Urine VISTA NEGATIVE (< 200 ng/mL); Cocaine Urine VISTA NEGATIVE (< 300 ng/mL); Ecstacy Urine VISTA NEGATIVE (< 500 ng/mL); Methadone Urine VISTA NEGATIVE (< 300 ng/mL); PCP Urine VISTA NEGATIVE (< 25 ng/mL); THC Urine VISTA NEGATIVE (< 50 ng/mL); Vista UDS pH Range 6
[2023-08-29] MEDS: Phenobarbital 32.4 MG Tablet 32.3999999999999986 MG PO ×2 (16:49→20:39)
[2023-08-29] MEDS: Lactated Ringers 1,000 ML 125 ML IV (16:49)
[2023-08-29] MEDS: Thiamine Hydrochloride 100 MG Tablet PO (16:49)
[2023-08-29] MEDS: KCL 40mEq in 0.9% NS 40 MEQ/1,000 ML IV.SOLN 75 MEQ IV (18:40)
[2023-08-29] MEDS: Ondansetron 8 MG Tablet PO (22:38)
[2023-08-29] MEDS: traZODone 100 MG Tablet PO (22:39)
[2023-08-29] MEDS: hydrOXYzine PAM 25 MG Capsule 50 MG PO (22:39)
--- OUTSIDE RECORDS SUMMARY | 2023-08-29 23:58 | XMS RPT_ITS | CCD ---
Author Name Unknown Address [address] [place] [address] Organization [facility] Care Team Providers Care [place] Pruner Name Role Phone VEL AGARWAL APRN, CNP Primary Care Phys ician Allergies Allergy Classification Reported Allergen(s) Allergy Type Date of Onset Reaction(s) Facility (3 sources) NSAIDs; Translations: [NSAIDs] Drug allergy Stomach ache (finding) [facility] Work Phone: (3 sources) Sulfonamides (Antibiotic); Translations: [sulfa drugs] Drug allergy Stomach ache (finding) [facility] Work Phone: Medications Current Medications Medication Drug Class(es) Dates Sig (Normalized) Sig (Original) amitriptyline hydrochloride 10 mg oral tablet (2 sources) Tricyclic Antidepressant Start: 08-20-2021 amitriptyline 10 mg oral tablet 0 Refill(s) Start Date: 08/20/21 Status: Ordered budesonide-formoter ol 160 mcg-4.5 mcg/inh Inhaler (4 sources) Start: 10-13-2021 End: 04-11-2022 take 1 dose by inhalation twice daily budesonide-formote rol 160 mcg-4.5 mcg/inh Inhaler Dose = 2 puff(s), Inhalation, BID, # 3 EA, 1 Refill(s), Pharmacy: [id number], COPD without exacerbation, 190, cm, 10/13/21 11:37:00 EDT, Height, kg, 10/13/21 11:33:00 EDT, Dosing Weight Start Date: 10/13/21 Stop Date: 04/11/22 Status: Ordered Problems Problem Classification Problem Date Documented Da te Episodic/Chronic Anxiety disorders (4 sources) Generalized anxiety disorder 05-26-2021 Chronic Chronic obstructive pulmonary disease and bronchiectasis (4 sources) Chronic obstructive lung disease 05-26-2021 Chronic Coronary atherosclerosis and other heart disease (6 sources) History of myocardial infarction; Translations: [Coronary arteriosclerosis] 05-26-2021 Chronic Disorders of lipid metabolism (4 sources) Hyperlipidemia 05-26-2021 Chronic Esophageal disorders (4 sources) Gastroesophageal reflux disease 05-26-2021 Chronic Essential hypertension (6 sources) Hypertensive disorder 05-26-2021 Chronic Headache; including migraine (1 source) Chronic headache disorder 09-22-2021 Episodic Lymphadenitis (4 sources) Hilar lymphadenopathy 05-26-2021 Episodic Nonmalignant breast conditions (8 sources) Breast lump; Translations: [Discharge from nipple] 05-26-2021 Episodic Nutritional deficiencies (4 sources) Vitamin D deficiency 05-26-2021 Chronic Other circulatory disease (4 sources) History of cerebrovascular accident 05-26-2021 Episodic Other connective tissue disease (4 sources) Pain in lower limb 05-26-2021 Episodic Other connective tissue disease (2 sources) Musculoskeletal pain 08-20-2021 Episodic Other gastrointestinal disorders (4 sources) H/O: abdominal hernia 05-26-2021 Episodic Other liver diseases (4 sources) Liver mass 05-26-2021 Episodic Other lower respiratory disease (4 sources) H/O: respiratory disease 05-26-2021 Episodic Other lower respiratory disease (2 sources) Dyspnea 08-20-2021 Episodic Other nervous system disorders (1 source) Chronic pain syndrome 09-22-2021 Chronic Other skin disorders (1 source) Skin lesion 09-22-2021 Episodic Parkinson`s disease (4 sources) Symptomatic parkinsonism 05-26-2021 Chronic Residual codes; unclassified (3 sources) Family history of breast cancer 07-01-2021 Episodic Unclassified (4 sources) Patient encounter status 05-26-2021 Results Test Name Value Interpretation Reference Range Facil ity Encounters Encounter Date Encounter Type Care Provider Facility Start: 10-13-2021 End: 10-17-2021 Outreach Lab VEL ESCOBEDO CLINICAL QUALITY ASSURANCE SPECIALIST - OTM CONSULTANT [facility] Start: 09-10-2021 End: 09-14-2021 Outreach Lab VEL ESCOBEDO CLINICAL QUALITY ASSURANCE SPECIALIST - OTM CONSULTANT [facility] Start: 07-01-2021 End: 07-01-2021 Patient encounter procedure JUAN DELATORRE CLINICAL QUALITY ASSURANCE SPECIALIST-DIESEL TECHNICIAN [facility] Start: 06-11-2021 End: 06-11-2021 Patient encounter procedure VEL ESCOBEDO CLINICAL QUALITY ASSURANCE SPECIALIST - OTM CONSULTANT [facility] Procedures Date Procedure Procedure Detail Performing Clinician Breast structure (body structure) JUAN DELATORRE CLINICAL QUALITY ASSURANCE SPECIALIST-DIESEL TECHNICIAN Immunizations Immunization Date Immunization Notes Care Provider Fa kelly 05-26-2021 influenza, injectabl e, quadrivalent, contains preservative; Translations: [Fluarix PF Quadrivalent ] VEL ESCOBEDO CLINICAL QUALITY ASSURANCE SPECIALIST - OTM CONSULTANT [facility] Social History Date Type Detail Facility Start: 05-26-2021 Heavy tobacco smoker (finding) [facility] Sex Assigned At [facility] Evaluation + Plan note Radiology Note Date & Type Note Facility Evaluation + Plan note Future Appointments Appointment Date:06/23/2021 08:00:00 AM Scheduled Provider:VEL ESCOBEDO APRN OTM CONSULTANT Location:[facility] Appointment Type:PC OV Follow Up Future Scheduled TestsUS Breast Bilateral Limited 06/09/21MA Mammo Diagnostic Bilateral w/Kyree 06/03/21 [facility] Evaluation + Plan note LaboratoryRadiology Note Date & Type Note Facility Evaluation + Plan note Future Appointments Appointment Date:07/09/2021 03:00:00 PM Scheduled Provider: Location:[facility] [place] Appointment Type:CV TELETYPESETTER MONITOR Appointment Date:09/11/2021 09:30:00 AM Scheduled Provider: Location:[facility] Appointment Type:PC Nurse Lab Appointment Date:09/22/2021 08:20:00 AM Scheduled Provider:VEL ESCOBEDO APRN, CNP Location:[facility] Appointment Type:PC OV Future Scheduled TestsFolate Level 09/21/21Vitamin B12 Level 09/21/21Complete Blood Count 09/21/21Lipid Profile 09/21/21Vitamin D Level 09/21/21Complete Metabolic Panel 09/21/21US Breast Bilateral Limited 06/09/21MA Mammo Diagnostic Bilateral w/Kyree 06/03/21 [facility] Evaluation + Plan note Laboratory Note Date & Type Note Facility Evaluation + Plan note Future Appointments Appointment Date:09/17/2021 02:00:00 PM Scheduled Provider: Location:[facility] Appointment Type:CV OV Appointment Date:09/22/2021 08:20:00 AM Scheduled Provider:VEL ESCOBEDO APRN, CNP Location:[facility] Appointment Type:PC OV Future Scheduled TestsC-Reactive Protein 08/20/21Sedimentation Rate Automated 08/20/21 [facility] Evaluation + Plan note Laboratory Note Date & Type Note Facility Evaluation + Plan note Future Appointments Appointment Date:10/22/2021 01:30:00 PM Scheduled Provider: Location:[facility] Appointment Type:CV OV Appointment Date:12/10/2021 09:00:00 AM Scheduled Provider: Location:[facility] Appointment Type:PC Nurse Lab Appointment Date:12/24/2021 09:00:00 AM Scheduled Provider:VEL ESCOBEDO APRN, CNP Location:[facility] Appointment Type:PC OV Follow Up Appointment Date:03/18/2022 09:45:00 AM Scheduled Provider: Location:[facility] Appointment Type:PC Nurse Lab Appointment Date:03/25/2022 09:00:00 AM Scheduled Provider:VEL ESCOBEDO APRN, CNP Location:[facility] Appointment Type:PC OV Follow Up Future Scheduled TestsC-Reactive Protein 08/20/21Prostate Specific Antigen 03/25/22Lipid Profile 03/25/22Microalbumin Level Urine 03/25/22Sedimentation Rate Automated 08/20/21Vitamin D Level 12/23/21Vitamin D Level 03/25/22Complete Metabolic Panel 03/25/22 [facility] Hospital course Narrative Note Date & Type Note Facility Hospital course Narrative No data available for this section [facility] Hospital Discharge instructions Note Date & Type Note Facility Hospital Discharge instructions No data available for this section [facility] Progress note Note Date & Type Note Facility Progress note No data available for this section [facility] Summary Purpose Family History No Family History Records Found Advance Directives No Advanced Directives Records Found Additional Source Comments Care Team (unrecognized sect ion and content) Personnel Name: VEL ESCOBEDO CLINICAL QUALITY ASSURANCE SPECIALIST - OTM CONSULTANT Address: [address] [place] [address] (unrecognized sect ion and content) No Status Records Found INFORMATION SOURCE (unrecogn ized section and content) FOR RECORDS PERTAINING TO PATIENTS WHO ARE OR HAVE BEEN ENROLLED IN A CHEMICAL DEPENDENCY/SUBSTANCEABUSE PROGRAM, SOME INFORMATION MAY BE OMITTED. This clinical summary was aggregated from multiple sources. Caution should be exercised in using it in the provision of clinical care. This summary normalizes information from multiple sources, and as a consequence, information in this document may materially change the coding, format and clinical context of patient data. In addition, data may be omitted in some cases. CLINICAL DECISIONS SHOULD BE BASED ON THE PRIMARY CLINICAL RECORDS. [facility] [email or web address] [facility]. provides no warranty or guarantee of the accuracy or completeness of information in this document.
[2023-08-30] VITALS (7 sets, daily range): BP systolic 126–145; BP diastolic 77–92; PULSE 88–115; RESP 15–20; TEMP 36.5–37.2; O2SAT 94–100
[2023-08-30] MEDS: Phenobarbital 32.4 MG Tablet 32.3999999999999986 MG PO ×6 (00:51→19:56)
[2023-08-30] MEDS: Dicyclomine 10 MG Capsule 20 MG PO (00:52)
[2023-08-30] MEDS: Acetaminophen 500 MG Tablet PO ×4 (05:09→19:56)
[2023-08-30 07:49] LABS: ALB/GLOB Ratio 0.9 RATIO (0.9-2.4); AST(SGOT) 117 U/L (15-37); Alanine Aminotransfer ALT/SGPT 85 U/L (16-61); Albumin, Serum 2.7 g/dL (3.2-5.0); Alkaline Phosphatase 100 U/L (45-117); Anion Gap 4 (5-15); BUN 9 mg/dL (7-18); BUN/Creat Ratio 11.9 RATIO (10-20); Calcium,Total 7.9 mg/dL (8.5-10.1); Chloride 108 mmol/L (98-107); Creatinine, Serum 0.76 mg/dL (0.70-1.30); EST Glomerular Filtration Rate 110 mL/min (>60); Est Glom Filt Rate - Afr Amer 133 mL/min (>60); Estimated Creatinine Clearance 86.98 ml/min; Globulin 3.1 g/dL (2.2-4.2); Glucose 121 mg/dL (74-106); Potassium 3.8 mmol/L (3.5-5.1); Protein, Total 5.8 g/dL (6.4-8.2); Sodium Level 136 mmol/L (136-145)
[2023-08-30] MEDS: Thiamine Hydrochloride 100 MG Tablet PO (08:45)
[2023-08-30] MEDS: Folic Acid 1 MG Tablet PO (08:45)
[2023-08-30] MEDS: KCL 40mEq in 0.9% NS 40 MEQ/1,000 ML IV.SOLN 75 MEQ IV (09:59)
[2023-08-30] MEDS: hydrOXYzine PAM 25 MG Capsule 50 MG PO ×2 (10:37→16:17)
[2023-08-30] MEDS: Ondansetron 8 MG Tablet PO (10:37)
--- NOTE | 2023-08-30 12:58 | CASEMGMT ---
Social Work SW met w/pt in room in regard to prior level of function and anticipated discharge. PCP: None, has not been to the doctor in two years Specialists: None Pharmacy: None, has not been on medication Insurance: [facility] [place] [facility] Medicare JUANI: Son in [place] who is 32, has not spoken to him in 9 years. Pt states he does not know why his son stopped speaking w/him. Niece October(his sister's daughter), she has his dog. Cousin Denys. LW/POA: Has not completed. 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 Pt states he stopped driving three weeks ago due to having the flu. Pt states he orders out food. SW asked about condition of his home as in the chart it states that it had piles of beer cans, blood on the hernandez, a broken table, etc. He states this has just been since he has been sick. Pt states he has not been using his shower as the floor is slippery. Alcohol use: SW asked pt about his beer consumption. Pt states he drinks a 30 pack every three days. Normally he would drink after work. Pt states since not feeling well however he was drinking to try to feel better. Pt states he was having trouble moving. SW inquired if he thought his alcohol consumption was having an impact on his health. Pt states no. MADHURI inquired if he wanted to stop, initially he stated no. Upon further discussion however he does seem to acknowledge that the alcohol may be having an impact on him. He is open to resources. SW explained can have the patient relations specialist from [facility] see him tomorrow, he is open to this. He states he was sober for about 9 months 3 years ago when he was dating someone. He states that she helped him get straight. However, he has been drinking again since they broke up. Mental Health: Pt states he has been diagnosed with anxiety in the past. He did have medication at one point but the woman he was dating took the medication away. Pt would be open to anxiety medication again. DME/SNF/HHC: Pt does use a cane, would like a walker if he goes home from here. No history of HHC or SNF. Plan: TBD. Pt wants to go home from here. We spoke about pt going somewhere for rehab vs going home. Pt would like to return home. PT/OT are pending. SW explained will continue to follow along for discharge needs, will speak w/him again after he has worked with PT and OT. Should pt go home, APS will be called. ISRAEL Gibbs
[2023-08-30] MEDS: Menthol/Lanolin/Calamine/Znox 113 GM Tube 1 APPLIC TOPICAL ×2 (13:02→19:59)
[2023-08-30 13:20] LABS: Pathologist Review Reviewed
--- NOTE | 2023-08-30 13:49 | PCM.PN.HOSP ---
Reason for Visit Reason for Visit: Diagnoses Alcohol use, unspecified with withdrawal delirium (08/29/23) Repeated falls (08/29/23) Objective Data Objective Data Vital Signs: Vital Signs Temp Pulse Resp BP Pulse Ox O2 Del Method 98.2 F 103 H 18 134/92 H 94 Room Air 08/30/23 08:40 08/30/23 08:40 08/30/23 08:40 08/30/23 08:40 08/30/23 08:40 08/30/23 08:51 Oxygen Delivery Method Room Air Weight: 147 lb 4.301 oz Body Mass Index (BMI) 18.3 Intake & Output: Intake and Output for Last 24 Hours 08/28/23 08/29/23 08/30/23 23:59 23:59 23:59 Intake Total 1447.92 / 1597.92 1150 / 1150 Output Total 300 / 900 850 / 850 Balance 1147.92 / 697.92 300 / 300 Medical Nutrition Assessment Dietitian: Malnutrition Criteria Met Start: 08/30/23 11:40 Freq: Status: Active Protocol: Document 08/30/23 12:12 RMA (Rec: 08/30/23 12:12 RMA [id number]) Nutrition Malnutrition Evidence of Malnutrition Exists Yes Malnutrition (severe): Chronic,Social/Behavioral/ Environmental Evidenced By Suboptimal Energy Intake ( Severe),Weight Loss (Severe), Physical Changes (Severe) Clinical Problem Chronic Disease or Condition Related Malnutrition Etiology Severe protein-calorie malnutrition in the context of chronic disease and social circumstance related to inadequate oral intake and ETOH abuse Signs/Symptoms as evidenced by BMI 18.4, approximately 19-20% unintentional weight loss x 1 year, PO meeting less than 50% estimated nutrition needs x 6 -12 months, severe muscle wasting and fat depletion in clavicle, temporal region, arms and legs and poor PO at meals since admit <25% meals Status Active Problem Recommendation Dietitian Recommendations/Changes Will continue liberalized regular diet and encourage PO at meals; will adjust food consistency to [id number] per pt request for softer foods. Will d/c ensure plus HP with medpass as pt is refusing. Will add chocolate magic cup milkshakes with lunch and dinner as tolerated. Adjust ONS as needed to optimize oral intake. Trend weight as available as PO adequacy established with meals. Lab / Micro Data 08/29/23 14:45 02/27/24 06:41 Labs: Laboratory Results - last 24 hr 08/29/23 14:45: WBC 4.6, RBC 4.40 L, Hgb 14.2, Hct 39.7 L, MCV 90.2, MCH 32.3 H, MCHC 35.8, RDW Std Deviation 45.4 H, RDW Coeff of Yousuf 13.8, Plt Count 49 L*, MPV 11.9, Immature Gran % (Auto) 0.900, Neut % (Auto) 69.9, Lymph % (Auto) 12.1 L, [place] % (Auto) 16.5 H, Eos % (Auto) 0.2, Baso % (Auto) 0.4, Absolute Neuts (auto) 3.2, Absolute Lymphs (auto) 0.56 L, Nucleated RBC % 0, Differential Comment SCANNED, Diff Path Review Reviewed, Platelet Estimate MKD DEC, PT 12.5, INR 0.9, Sodium 131 L, Potassium 3.6, Chloride 98, Carbon Dioxide 24.0, Anion Gap 9, BUN 5 L, Creatinine 0.64 L, Estim Creat Clear Calc 86.07, Est GFR (MDRD) Af Amer 162, Est GFR (MDRD) Non-Af 134, BUN/Creatinine Ratio 7.8 L, Glucose 85, Calcium 8.7, Total Bilirubin 1.30 H, AST 167 H, ALT 106 H, Alkaline Phosphatase 130 H, Total Creatine Kinase 1577 H, Total Protein 7.0, Albumin 3.4, Globulin 3.6, Albumin/Globulin Ratio 0.9 08/29/23 14:51: Urine Color Yellow, Urine Clarity Sl. Cloudy, Urine pH 7.0, Ur Specific [place] 1.005, Urine Protein Negative, Urine Glucose (UA) Normal, Urine Ketones 15 H, Urine Occult Blood 10 H, Urine Nitrite Negative, Urine Bilirubin Negative, Urine Urobilinogen 1 H, Ur Leukocyte Esterase Negative, Urine RBC 0-5 SEEN, Urine WBC 0 SEEN, Ur Squamous Epith Cells 0 SEEN, Urine Bacteria 0 SEEN, Urine Mucus 0 SEEN, Urine Opiates Screen NEGATIVE, Urine Methadone Screen NEGATIVE, Ur Barbiturates Screen NEGATIVE, Ur Phencyclidine Scrn NEGATIVE, Ur Amphetamines Screen NEGATIVE, MDMA (Ecstasy) Screen NEGATIVE, U Benzodiazepines Scrn NEGATIVE, Urine Cocaine Screen NEGATIVE, U Cannabinoids Screen NEGATIVE, Ur Drug Screen Comment 08/30/23 06:41: Sodium 136, Potassium 3.8, Chloride 108 H, Carbon Dioxide 24.0, Anion Gap 4 L, BUN 9, Creatinine 0.76, Estim Creat Clear Calc 86.98, Est GFR (MDRD) Af Amer 133, Est GFR (MDRD) Non-Af 110, BUN/Creatinine Ratio 11.9, Glucose 121 H, Calcium 7.9 L, Total Bilirubin 1.20 H, AST 117 H, ALT 85 H, Alkaline Phosphatase 100, Total Protein 5.8 L, Albumin 2.7 L, Globulin 3.1, Albumin/Globulin Ratio 0.9 Radiography Diagnostic Testing: Radiology Impression Lumbar Spine CT 08/29/23 14:32 IMPRESSION: 1. Acute high-grade compression fracture of the T12 vertebral body, but with mild retropulsion of the cortex. A focal kyphotic deformity is present at the T11-T12 level due to loss of T12 vertebral body height. No central canal compromise is present, however may consider consulting with interventional radiology or the spine service for possible kyphoplasty given the focal deformity. 2. Multilevel degenerative changes, as described above. Electronically Signed: Og Benavides MD at 15:23 EST , Chest X-Ray 08/29/23 15:06 IMPRESSION: 1. No demonstrated consolidation or infiltrates or pleural effusion. Mild cystic emphysematous changes and hyperinflation of both lungs noted. 2. The patient has an acute T12 vertebral body compression deformity not visualized by plain film was seen on the CT of the lumbar spine performed on the same day. Electronically Signed: Og Benavides MD at 15:25 EST , Brain CT 08/29/23 15:12 IMPRESSION: 1. Chronic involutional changes of the brain. Electronically Signed: Og Benavides MD at 15:31 EST , Physical Exam Narrative Seen and examined. Patient had thorough cleaning and looks better. Has multiple bruises and scabs and excoriations all over the skin. Has shaking but looks better than yesterday. Complain of lower thoracic upper lumbar back pain. Physical exam General: Awake, oriented x 3. Cooperative. In moderate pain HEENT: Atraumatic, PERRLA, EOMI, Normocephalic Oral: Oral mucosa very dry. No Gingival or Mucosal Lesions/ Ulcerations Neck: Supple, No JVD, Negative Carotid Bruits Chest wall/Lungs: Air entry diminished in bilateral lung bases. No crepitation/rhonchi Cardiovascular: Regular rate, Regular Rhythm, Normal S1, Normal S2, No M/G/R Abdomen: Bowel Sounds Present, Soft, Non Tender, Non-Distended : Spontaneously voiding urine. No dysuria. No renal angle tenderness. No suprapubic tenderness. Extremities: No edema, Capillary Refill Less than 3 Seconds Skin: Bruise, scabs, ecchymosis and excoriations all over the body including knees and lower extremities Musculoskeletal: Tenderness present to lower extremities. Muscle strength 4/5 at knees and hip joints but painful and tender. Spine: Patient could not roll on the sides or back because of pain. Tenderness present on T11, T12 to L1 Neurological: Cranial nerves II-XII grossly intact, DTR 2+/4. Sensation around perineal region and testicles. Does not seem cauda equina syndrome. Psych/Mental Status: Normal Affect, Appropriate. Assessment & Plan Assessment/Plan (1) Acute hyperactive alcohol withdrawal delirium: (2) Recurrent falls: PLAN: Plan This is a 63-year-old gentleman being admitted for acute alcohol withdrawal and severe back pain with multiple falls on single day. Patient was very resistant and opposed to EMS for coming to ED. 1. Acute alcohol withdrawal syndrome with history of chronic alcohol use, dependence and tolerance: Patient is being admitted to MedSurg floor. Patient on phenobarbital based order set along with other adjunctive medications gabapentin, Bentyl, Vistaril, clonidine, Klonopin as needed for alcohol withdrawal symptom control. Patient is on thiamine and folate acid. CIWA monitor. district manager major accounts sales consulted. 08/30: Overall withdrawal symptoms are better. No seizure. No hallucination. U tox screen negative. 0. 2. Acute on recurrent fall probably due to chronic alcohol use, generalized weakness, disequilibrium with mild rhabdomyolysis: PT and OT ordered. UA shows occult blood, RBC 0-5 cells and probably due to myoglobinuria. WBC 0. 3. Acute compression fracture of T12 vertebral body: Patient has tenderness over T12 vertebra but he can lift both lower extremities, muscle strength 4/5 with intact perineal sensation, voiding urine, cauda equina symptoms unlikely. Lumbar spine CT shows acute high-grade compression fracture of T12 vertebral body with mild retropulsion of the cortex. No central canal compromise. Loss of T12 vertebral body height with focal kyphotic deformity. When patient is out of alcohol withdrawal can have evaluation for kyphoplasty but currently out of the question. 4. Most likely chronic hyponatremia from beer potomania associated with low solute intake: Patient has not been eating or drinking for 4 days. Gradual bringing up sodium to around 137 138. Last sodium was 139 in August 2021. Patient had 1 L of normal saline in ED. 08/30 patient is well-hydrated. 5. Acute/subacute alcoholic hepatitis: Liver chemistry shows TB 1.3, ALT AST 106, 167 respectively, alkaline phosphatase 130. CCK 1577 showing mild rhabdomyolysis. Continue IV fluid normal saline. Patient does not have right upper quadrant abdominal pain or tenderness. Severe hypoalbuminemia from chronic alcohol use. 6. Multiple subcutaneous bruise/wound and ecchymosis: Patient has thrombocytopenia 49,000. Previous platelet count was 314,000 in August 2021. INR 0.9. DVT prophylaxis: Moderate to high risk. Pharmacological prophylaxis contraindicated due to multiple bruises and wounds and severe thrombocytopenia. Bilateral SCDs Living will/advanced directive/end of life care: Patient does not have living will or advanced directive. Patient does not have dilated power of foundry melt supervisor for health. After discussion of benefits/risks procedures involved with full code, DNR CC arrest and DNR CC, the patient opted for DNR CC arrest with no intubation. Patient states when my and time comes, let me go. Patient doesn't want artificial life support including intubation, tube feed, ventilator and/chest compression, central venous catheter, vasopressor and DC shock if needed Clinical Impression(s) from Imaging Studies Lumbar Spine CT 08/29/23 14:32 IMPRESSION: 1. Acute high-grade compression fracture of the T12 vertebral body, but with mild retropulsion of the cortex. A focal kyphotic deformity is present at the T11-T12 level due to loss of T12 vertebral body height. No central canal compromise is present, however may consider consulting with interventional radiology or the spine service for possible kyphoplasty given the focal deformity. 2. Multilevel degenerative changes, as described above. Chest X-Ray 08/29/23 15:06 IMPRESSION: 1. No demonstrated consolidation or infiltrates or pleural effusion. Mild cystic emphysematous changes and hyperinflation of both lungs noted. 2. The patient has an acute T12 vertebral body compression deformity not visualized by plain film was seen on the CT of the lumbar spine performed on the same day. Brain CT 08/29/23 15:12 IMPRESSION: 1. Chronic involutional changes of the brain. Electronically Signed: Og Benavides MD at 15:31 EST Reading Location ID and State: [facility] / [place] , Service support , Charges/Coding Visit Charges Inpatient E&M: 59315 Subs Hosp L2
[2023-08-30 14:16] LABS: Vitamin B12 506 pg/mL (211-911)
--- NOTE | 2023-08-30 14:41 | CHAPLAIN ---
Type of Pastoral Visit _x__ Initial Visit ___ Follow-up Visit ___ On-call Visit ___ General Patient Visit ___ Spiritual Assessment ___ Family Conference ___ Bereavement ___ Rapid Response ___ Code Blue ___ Other (describe below) Pastoral Care Referral From _x__ Patient ___ Family ___ Nurse ___ Physician ___ Boarding Kennel Or Cattery Operator ___ Pipe Stress Engineer ___ Other (describe below) Sacrament/Intervention _x__ Active listening ___ Anointing ___ Christian ___ Bereavement ___ Communion _x__ Neda exploration ___ _x__ Life review _x__ Prayer ___ Reconciliation ___ Sacrament of Sick _x__ Supportive presence ___ Wedding ___ Other (describe below) Pastoral Comments patient was awake and welcoming, asking this lodge officer to sit and talk with me because I live alone and don't have anyone to talk with during the days ; even though this lodge officer addresses his alcohol use, pt does not refer to his alcohol issues but talks about falling and having injuries; pt talks about his need for prayer and how he talks to God too, knowing His ways are different than my ways ; pt is estranged from most family members claiming he doesn't know why; pt states that he believes in God but is not connected to a neda community; pt is unsure about what he needs except that he desires time to talk and for a prayer
[2023-08-30] MEDS: Gabapentin 300 MG Capsule PO (19:56)
[2023-08-30] MEDS: traZODone 100 MG Tablet PO (19:56)
[2023-08-31] VITALS: BP 128/88; PULSE 77; RESP 16; TEMP 36.9; O2SAT 96
[2023-08-31] MEDS: 0.9% Saline Lock 10 ML Syringe IV ×2 (00:18→20:34)
[2023-08-31] MEDS: hydrOXYzine PAM 25 MG Capsule 50 MG PO ×3 (00:19→14:07)
[2023-08-31] MEDS: Phenobarbital 32.4 MG Tablet 32.3999999999999986 MG PO ×6 (00:19→20:33)
[2023-08-31] MEDS: Gabapentin 300 MG Capsule PO ×2 (03:59→11:44)
[2023-08-31 04:00] VITALS: BP 107/78; PULSE 75; RESP 16; TEMP 36.8; O2SAT 96
[2023-08-31 06:04] LABS: Absolute Lymphocyte Count 0.84 X10^3/uL (0.83-4.51); Absolute Neutrophil Count 2.5 X10^3/uL (2.0-7.7); Basophil# 0.02 X10^3/uL; Basophil% 0.5 % (0-1); Eosinophil# 0.09 X10^3/uL; Eosinophils% 2.3 % (0-5); Hematocrit 32.9 % (40-54); Hemoglobin 11.2 g/dL (13.0-16.5); Lymphocyte # 0.84 X10^3/ul (0.83-4.51); Lymphocyte % 21.6 % (19-41); Mean Corpuscular Hgb 32.5 pg (27.0-32.0); Mean Corpuscular Volume 95.4 fL (80-94); Mean Platelet Vol. 12.8 fl (6.2-12.0); Monocyte# 0.38 X10^3/uL; Monocyte% 9.8 % (0-10); NRBC Flagged by Analyzer 0 % (0-5); Neutrophil # 2.51 X10^3/uL (2.7-7.7); Neutrophil % 64.5 % (47-70); POSITIVE COUNT YES; Platelet Count 50 K/mm3 (150-450); RBC Distribution Width CV 14.3 % (11.6-14.6); Red Blood Count 3.45 M/mm3 (4.6-6.2); White Blood Count 3.9 K/mm3 (4.4-11.0)
[2023-08-31 06:29] LABS: Anion Gap 4 (5-15); BUN 6 mg/dL (7-18); BUN/Creat Ratio 10.2 RATIO (10-20); Calcium,Total 7.8 mg/dL (8.5-10.1); Chloride 106 mmol/L (98-107); Creatinine, Serum 0.59 mg/dL (0.70-1.30); EST Glomerular Filtration Rate 147 mL/min (>60); Est Glom Filt Rate - Afr Amer 178 mL/min (>60); Estimated Creatinine Clearance 86.98 ml/min; Glucose 111 mg/dL (74-106); Potassium 3.3 mmol/L (3.5-5.1); Sodium Level 135 mmol/L (136-145)
[2023-08-31 09:06] VITALS: BP 132/87; PULSE 76; RESP 18; TEMP 36.8; O2SAT 94
[2023-08-31] MEDS: Folic Acid 1 MG Tablet PO (09:19)
[2023-08-31] MEDS: Thiamine Hydrochloride 100 MG Tablet PO (09:19)
[2023-08-31 10:40] VITALS: O2SAT 94
--- NOTE | 2023-08-31 11:24 | CASEMGMT ---
Social Work SW met with pt and introduced self and role of SW. Pt is agreeable to meet with SW and talks openly, answering questions and offering additional insight to questions asked. SW spoke with pt regarding home situation, weakness and need for short term SNF. Pt adamantly refusing to go to SNF. Pt states he did not want to come to the hospital and will not go to a residential, even for rehab. SW discussed at length pt's condition at home prior to admission to the hospital and that he could not care for himself. Pt admitting to this but continues to refuse SNF. Pt does not have a PCP. SW spoke with pt regarding need to followup after discharge with a PCP. Pt again refusing. SW discussed this at length and pt is not willing to see a primary care physician. Pt states he hates to take pills and so no need for a doctor. SW presented reasoning to see physician even if he does not like medication. Pt is angry at his last PCP which he saw over 2 years ago and refuses to be set up with a new PCP. SW presented option of Out Patient Physical or Occupational Therapy to increase strength. Pt refused. Pt was seen by addiction therapist who reports that resources were offered. Pt refused. Throughout conversation with pt, pt does make good eye contact but affect flat throughout conversation. Pt stating his brother Servando dies one year ago on August 09. Explored feelings regarding this loss and pt's coping. Pt does not have a relationship with his other siblings, his son or his 4 step children. Pt appears to be depressed and pt admits to this. MADHURI spoke with pt regarding using alcohol as a way to cope with grief and depression and exploring more appropriate ways to cope. SW discussed pt seeing a counselor. Pt refused. SW again suggested follow up with PCP for possible anti depressants, pt refused. Pt denies and suicidal thoughts or intentions. Pt does sight his relationship with his cousin Porfirio as helpful. Pt enjoys spending time with Denys and talking to him. Pt states that Denys or pt's niece will provide transportation home. Denys will assist pt with cleaning the apartment up and Denys is removing all the alcohol from patient's apartment. Therapy is recommending a walker and pt is agreeable to this. RNCM updated. MADHURI provided update to physician on pt's discharge plan. SW will notify [facility] at time of discharge. Plan: home alone, pt not accepting of any services at this time. AARON Mars
--- NOTE | 2023-08-31 11:27 | CASEMGMT ---
See MADHURI Woo note. RN CM to pt room at this time regarding DME (FWW). Pt denies wanting to see a local list of in network DME companies and states that [facility] is OK to use. Dr. Wong signed an Rx for the pt walker and states that the pt will not be DC until tomorrow. Referral sent to [facility] via [facility] at this time with pt anticipated DC being tomorrow 09/01/23. Order placed in chart.
[2023-08-31] MEDS: Potassium Chloride Oral Tablet 20 MEQ 40 MEQ PO (11:44)
--- NOTE | 2023-08-31 12:09 | PCM.PN.HOSP ---
Reason for Visit Reason for Visit: Fall Subjective Subjective Mr. Womack is a 63-year-old white male who presented via EMS after suffering a fall on the morning of admission. He presented to emergency department on 08/29/2023 and stated he was on the floor for hours at which time he crawled to the couch and called his niece who then in turn called EMS. Patient reported that he had fallen very frequently since he had the flu about 3 weeks ago. He drinks about 12 beers a day and is currently urinating in a bucket next to him so he does not have to get up too much. On presentation he was complaining of some low back pain from the fall but denied hitting his head. He is noncompliant with medical care. On presentation he had not eaten in about 3 to 4 days and EMS reported that his whole living room in the house was in disarray with blood on the wall and carpet. Patient did acknowledge that he drinks too much and complained of having bruises all over his body. He was given IV fluids in the emergency department and admitted to the medical floor at which time he was started on a phenobarbital taper as well as supportive medications and thiamine and folate. 180 was consulted however the patient has declined any ongoing services from 180 and states he will do it on his own. Placement has been recommended however patient is adamant that he will go home once he is medically stable. He is agreeable to stay until he is medically stable. He is currently fairly shaky and off balance. Denies any current overt issues however. Would like me to give him something to make the shaking to stop. Objective Data Objective Data Vital Signs: Vital Signs Temp Pulse Resp BP Pulse Ox O2 Del Method 98.3 F 76 18 132/87 H 94 Room Air 08/31/23 09:06 08/31/23 09:06 08/31/23 09:06 08/31/23 09:06 08/31/23 10:40 08/31/23 09:06 Oxygen Delivery Method Room Air Weight: 66.8 kg Body Mass Index (BMI) 18.3 Intake & Output: Intake and Output for Last 24 Hours 08/29/23 08/30/23 08/31/23 23:59 23:59 23:59 Intake Total 1447.92 / 1597.92 2150 / 2150 Output Total 300 / 900 1300 / 1300 800 / 800 Balance 1147.92 / 697.92 850 / 850 -800 / -800 Medical Nutrition Assessment Dietitian: Malnutrition Criteria Met Start: 08/30/23 11:40 Freq: Status: Active Protocol: Document 08/30/23 12:12 RMA (Rec: 08/30/23 12:12 RMA [id number]) Nutrition Malnutrition Evidence of Malnutrition Exists Yes Malnutrition (severe): Chronic,Social/Behavioral/ Environmental Evidenced By Suboptimal Energy Intake ( Severe),Weight Loss (Severe), Physical Changes (Severe) Clinical Problem Chronic Disease or Condition Related Malnutrition Etiology Severe protein-calorie malnutrition in the context of chronic disease and social circumstance related to inadequate oral intake and ETOH abuse Signs/Symptoms as evidenced by BMI 18.4, approximately 19-20% unintentional weight loss x 1 year, PO meeting less than 50% estimated nutrition needs x 6 -12 months, severe muscle wasting and fat depletion in clavicle, temporal region, arms and legs and poor PO at meals since admit <25% meals Status Active Problem Recommendation Dietitian Recommendations/Changes Will continue liberalized regular diet and encourage PO at meals; will adjust food consistency to [id number] per pt request for softer foods. Will d/c ensure plus HP with medpass as pt is refusing. Will add chocolate magic cup milkshakes with lunch and dinner as tolerated. Adjust ONS as needed to optimize oral intake. Trend weight as available as PO adequacy established with meals. Lab / Micro Data 08/31/23 05:35 08/31/23 05:35 Labs: Laboratory Results - last 24 hr 08/29/23 14:45: Diff Path Review Reviewed 08/30/23 06:41: Vitamin B12 506, Folate 5.80 08/31/23 05:35: WBC 3.9 L, RBC 3.45 L, Hgb 11.2 L, Hct 32.9 L, MCV 95.4 H D, MCH 32.5 H, MCHC 34.0 D, RDW Std Deviation 50.0 H, RDW Coeff of Yousuf 14.3, Plt Count 50 L*, MPV 12.8 H, Immature Gran % (Auto) 1.300 H, Neut % (Auto) 64.5, Lymph % (Auto) 21.6, [place] % (Auto) 9.8, Eos % (Auto) 2.3, Baso % (Auto) 0.5, Absolute Neuts (auto) 2.5, Absolute Lymphs (auto) 0.84, Nucleated RBC % 0, Sodium 135 L, Potassium 3.3 L, Chloride 106, Carbon Dioxide 25.0, Anion Gap 4 L, BUN 6 L, Creatinine 0.59 L, Estim Creat Clear Calc 86.98, Est GFR (MDRD) Af Amer 178, Est GFR (MDRD) Non-Af 147, BUN/Creatinine Ratio 10.2, Glucose 111 H, Calcium 7.8 L Physical Exam Const alert, oriented x3 and no apparent distress; Negative for average body habitus, healthy appearing or well nourished Constitutional Narrative: Upper middle-aged, white male who appears much older than stated age, thin, appears disheveled and very weak, somewhat tremulous, appears unhealthy HEENT head/scalp atraumatic and moist oral mucous membranes HEENT Narrative: Dentition is poor, Mallampati is 2, no thrush Head and Scalp: normocephalic Resp normal respiratory effort, no retractions, no use of accessory muscles and clear to auscultation bilaterally Resp Narrative: Diffusely diminished but clear Auscultation: Negative for rales, rhonchi or wheezes Cardio regular rate, regular rhythm, S1 normal heart sound, S2 normal heart sound, no murmurs, no rub, no gallops and no clicks GI normal to inspection, nondistended, normoactive bowel sounds and soft to palpation GI Narrative: Abdomen is scaphoid Extremity no clubbing, cyanosis or edema Extremity Narrative: Decreased lean muscle mass Skin Skin Narrative: Scattered abrasions and ecchymosis with no signs of infection Neuro oriented x3, moves all extremities and no focal motor deficits Neuro Narrative: Marked generalized weakness, tremulousness noted Speech: speech normal Psych Psych Narrative: Affect is flat and mood seems somewhat depressed Assessment & Plan Assessment/Plan (1) Alcohol abuse: (2) Thrombocytopenia: (3) Recurrent falls: (4) T12 compression fracture: PLAN: Plan Acute alcohol withdrawal -Patient with history of chronic alcohol use dependence and tolerance -Drinks at least 1212 ounce beers daily -Continue phenobarbital taper and supportive medications -Continue thiamine and folate -Add CIWA protocol with as needed Ativan as patient is significantly tremulous today -Patient was seen by 180 and declined any ongoing resources at discharge Mild rhabdomyolysis -Recheck a.m. CK Recurrent falls -Likely related to chronic alcohol use and generalized weakness related to recent flu -Continue PT/OT -Patient likely not qualify for intermediate facility and is adamant that he would want to go home anyway -Will discuss home health however I suspect he will not be amenable to this Acute compression fracture at T12 -Patient without any neurological changes -Mild retropulsion of the cortex was noted -Consider outpatient follow-up at this all if it is continues to be problematic for him -Continue as needed pain medication Chronic hyponatremia -Mild -135 today -Continue to monitor Hypokalemia -Potassium 3.3 -Will give 40 mill equivalents p.o. potassium -Recheck in a.m. if does not correct appropriately will check magnesium Transaminitis/hyperbilirubinemia -Suspect related to acute alcoholic hepatitis -Have been trending down -Repeat in a.m. Severe thrombocytopenia -Coags are unremarkable -Likely related to marrow toxicity versus splenic sequestration -Continue to monitor History of tobacco abuse -Patient denies need for nicotine replacement therapy -As needed aerosols -Recommend cessation DVT prophylaxis -SCDs -Chemoprophylaxis contraindicated due to marked thrombocytopenia CODE STATUS -DNR CCA with no intubation as discussed on admission Charges/Coding Visit Charges Inpatient E&M: 27228 Subs Hosp L2
[2023-08-31 14:02] VITALS: BP 117/85; PULSE 94; RESP 18; TEMP 36.6; O2SAT 94
[2023-08-31] MEDS: Ondansetron 8 MG Tablet PO (14:07)
[2023-08-31] MEDS: Dicyclomine 10 MG Capsule 20 MG PO (14:07)
--- NOTE | 2023-08-31 14:54 | CASEMGMT ---
GLORIAW delivered to the pt room at this time from Justo gutierrez [facility]
[2023-08-31 20:29] VITALS: BP 98/67; PULSE 99; RESP 20; TEMP 36.7; O2SAT 97
[2023-08-31] MEDS: traZODone 100 MG Tablet PO (20:36)
[2023-08-31] MEDS: Acetaminophen 500 MG Tablet PO (20:36)
[2023-08-31] MEDS: Menthol/Lanolin/Calamine/Znox 113 GM Tube 1 APPLIC TOPICAL (20:37)
[2023-09-01] VITALS (7 sets, daily range): BP systolic 98–108; BP diastolic 61–80; PULSE 72–89; RESP 15–16; TEMP 36.6–37.4; O2SAT 92–98
[2023-09-01] MEDS: Phenobarbital 32.4 MG Tablet 32.3999999999999986 MG PO ×4 (00:39→18:36)
[2023-09-01] MEDS: Acetaminophen 500 MG Tablet PO ×3 (06:37→22:37)
[2023-09-01 07:50] LABS: Hematocrit 35.3 % (40-54); Hemoglobin 11.7 g/dL (13.0-16.5); Mean Corp Hgb Conc 33.1 g/dL (32-36); Mean Corpuscular Hgb 32.1 pg (27.0-32.0); Mean Platelet Vol. 12.4 fl (6.2-12.0); POSITIVE COUNT YES; Platelet Count 62 K/mm3 (150-450); RBC Distribution Width CV 14.3 % (11.6-14.6); RBC Distribution Width SD 51.7 fl (35.1-43.9); Red Blood Count 3.64 M/mm3 (4.6-6.2); White Blood Count 5.6 K/mm3 (4.4-11.0)
[2023-09-01 08:08] LABS: Scan Indicated on CBC? Y/N YES- FLAGS NOTED
[2023-09-01 08:14] LABS: CPK Total, Creatine Kinase 645 U/L (39-308)
[2023-09-01 08:19] LABS: AST(SGOT) 59 U/L (15-37); Alanine Aminotransfer ALT/SGPT 57 U/L (16-61); Albumin, Serum 2.5 g/dL (3.2-5.0); Alkaline Phosphatase 104 U/L (45-117); Anion Gap 3 (5-15); BUN 10 mg/dL (7-18); BUN/Creat Ratio 13.7 RATIO (10-20); Bilirubin, Direct 0.37 mg/dL (0.00-0.30); Calcium,Total 8.4 mg/dL (8.5-10.1); Chloride 105 mmol/L (98-107); Creatinine, Serum 0.73 mg/dL (0.70-1.30); EST Glomerular Filtration Rate 114 mL/min (>60); Est Glom Filt Rate - Afr Amer 138 mL/min (>60); Estimated Creatinine Clearance 86.98 ml/min; Glucose 98 mg/dL (74-106); Magnesium 1.8 mg/dL (1.6-2.6); Protein, Total 5.5 g/dL (6.4-8.2); Sodium Level 133 mmol/L (136-145)
[2023-09-01 08:54] LABS: Differential Comment SCANNED
[2023-09-01] MEDS: Menthol/Lanolin/Calamine/Znox 113 GM Tube 1 APPLIC TOPICAL (09:06)
[2023-09-01] MEDS: Folic Acid 1 MG Tablet PO (09:06)
[2023-09-01] MEDS: Thiamine Hydrochloride 100 MG Tablet PO (09:06)
[2023-09-01] MEDS: hydrOXYzine PAM 25 MG Capsule 50 MG PO ×2 (09:16→15:13)
--- NOTE | 2023-09-01 14:57 | PCM.PN.HOSP ---
Reason for Visit Reason for Visit: Fall Subjective Subjective No issues overnight. Patient states he feels less tremulous however nurses aide states that he is still fairly shaky with ambulation. I tried to discuss with him further about going to skilled rehab after discharge and he is adamant that he will not be going and wants to go home. Objective Data Objective Data Vital Signs: Vital Signs Temp Pulse Resp BP Pulse Ox O2 Del Method 98.5 F 80 16 107/80 95 Room Air 09/01/23 08:57 09/01/23 08:57 09/01/23 08:57 09/01/23 08:57 09/01/23 14:26 09/01/23 08:57 Oxygen Delivery Method Room Air Weight: 66.8 kg Body Mass Index (BMI) 18.3 Intake & Output: Intake and Output for Last 24 Hours 08/30/23 08/31/23 09/01/23 23:59 23:59 23:59 Intake Total 2150 / 2150 240 / 240 240 / 240 Output Total 1300 / 1300 1225 / 1225 Balance 850 / 850 -985 / -985 240 / 240 Medical Nutrition Assessment Dietitian: Malnutrition Criteria Met Start: 08/30/23 11:40 Freq: Status: Active Protocol: Document 08/30/23 12:12 RMA (Rec: 08/30/23 12:12 RMA [id number]) Nutrition Malnutrition Evidence of Malnutrition Exists Yes Malnutrition (severe): Chronic,Social/Behavioral/ Environmental Evidenced By Suboptimal Energy Intake ( Severe),Weight Loss (Severe), Physical Changes (Severe) Clinical Problem Chronic Disease or Condition Related Malnutrition Etiology Severe protein-calorie malnutrition in the context of chronic disease and social circumstance related to inadequate oral intake and ETOH abuse Signs/Symptoms as evidenced by BMI 18.4, approximately 19-20% unintentional weight loss x 1 year, PO meeting less than 50% estimated nutrition needs x 6 -12 months, severe muscle wasting and fat depletion in clavicle, temporal region, arms and legs and poor PO at meals since admit <25% meals Status Active Problem Recommendation Dietitian Recommendations/Changes Will continue liberalized regular diet and encourage PO at meals; will adjust food consistency to [id number] per pt request for softer foods. Will d/c ensure plus HP with medpass as pt is refusing. Will add chocolate magic cup milkshakes with lunch and dinner as tolerated. Adjust ONS as needed to optimize oral intake. Trend weight as available as PO adequacy established with meals. Lab / Micro Data 09/01/23 07:18 09/01/23 07:18 Labs: Laboratory Results - last 24 hr 09/01/23 07:18: WBC 5.6, RBC 3.64 L, Hgb 11.7 L, Hct 35.3 L, MCV 97.0 H, MCH 32.1 H, MCHC 33.1, RDW Std Deviation 51.7 H, RDW Coeff of Yousuf 14.3, Plt Count 62 L, MPV 12.4 H, Differential Comment SCANNED, Sodium 133 L, Potassium 4.0, Chloride 105, Carbon Dioxide 25.0, Anion Gap 3 L, BUN 10, Creatinine 0.73, Estim Creat Clear Calc 86.98, Est GFR (MDRD) Af Amer 138, Est GFR (MDRD) Non-Af 114, BUN/Creatinine Ratio 13.7, Glucose 98, Calcium 8.4 L, Magnesium 1.8, Total Bilirubin 0.80, Direct Bilirubin 0.37 H, AST 59 H, ALT 57, Alkaline Phosphatase 104, Total Creatine Kinase 645 H, Total Protein 5.5 L, Albumin 2.5 L, Globulin 3.0 Physical Exam Narrative Const alert, oriented x3 and no apparent distress; Negative for average body habitus, healthy appearing or well nourished Constitutional Narrative: Upper middle-aged, white male who appears much older than stated age, thin, appears disheveled and very weak, less tremulous, sitting up in a chair, appears chronically ill and unhealthy at baseline HEENT head/scalp atraumatic and moist oral mucous membranes HEENT Narrative: Dentition is poor, Mallampati is 1, no thrush Resp normal respiratory effort, no retractions, no use of accessory muscles and clear to auscultation bilaterally Resp Narrative: Diffusely diminished but clear Auscultation: Negative for rales, rhonchi or wheezes Cardio regular rate, regular rhythm, S1 normal heart sound, S2 normal heart sound, no murmurs, no rub, no gallops and no clicks GI normal to inspection, nondistended, normoactive bowel sounds, soft to palpation and non-tender GI Narrative: Abdomen is scaphoid Extremity no clubbing, cyanosis or edema Extremity Narrative: Decreased lean muscle mass Neuro oriented x3, moves all extremities and no focal motor deficits Neuro Narrative: Marked generalized weakness, tremulousness noted Speech: speech normal Psych Psych Narrative: Affect is flat and mood seems somewhat depressed Assessment & Plan Assessment/Plan (1) Alcohol abuse: (2) Thrombocytopenia: (3) Recurrent falls: (4) T12 compression fracture: PLAN: Plan Acute alcohol withdrawal -Patient with history of chronic alcohol use dependence and tolerance -Drinks at least 12 12 ounce beers daily -Continue phenobarbital taper and supportive medications -Continue thiamine and folate -Continue CIWA protocol with as needed Ativan as patient is significantly tremulous today -Patient was seen by 180 and declined any ongoing resources at discharge Mild rhabdomyolysis -Resolving his CK is trending down Recurrent falls -Likely related to chronic alcohol use and generalized weakness related to recent flu -Continue PT/OT -Patient likely not qualify for intermediate facility and is adamant that he would want to go home anyway -After discussion patient remains adamant that he wants to go home and will be going home at discharge Acute compression fracture at T12 -Patient without any neurological changes -Mild retropulsion of the cortex was noted -Consider outpatient follow-up at this all if it is continues to be problematic for him -Continue as needed pain medication -Does not seem to be all that symptomatic at this time Chronic hyponatremia -Mild - 133 -Continue to monitor Hypokalemia -Resolved with current potassium at 4.0 Transaminitis/hyperbilirubinemia -Resolving-no need to repeat -ALT and alk phos have normalized -Total bilirubin has normalized with slightly elevated direct bilirubin -AST is just mildly elevated at 59 Severe thrombocytopenia -Coags are unremarkable -Likely related to marrow toxicity versus splenic sequestration -Platelet count for the first time today is above 50,000 and seems to be stabilizing -Continue to monitor History of tobacco abuse -Patient denies need for nicotine replacement therapy -As needed aerosols -Recommend cessation DVT prophylaxis -SCDs -Start heparin twice daily with platelet count greater than 50,000 CODE STATUS -DNR CCA with no intubation as discussed on admission Charges/Coding Visit Charges Inpatient E&M: 93131 Subs Hosp L2
[2023-09-01] MEDS: Gabapentin 300 MG Capsule PO (18:38)
[2023-09-01] MEDS: traZODone 100 MG Tablet PO (22:38)
[2023-09-02] MEDS: Heparin Injection (Vial) 5,000 UNIT/ML VIAL 5000 UNIT SC ×3 (00:35→21:34)
[2023-09-02] MEDS: Menthol/Lanolin/Calamine/Znox 113 GM Tube 1 APPLIC TOPICAL ×3 (00:36→21:34)
[2023-09-02] MEDS: Phenobarbital 32.4 MG Tablet 32.3999999999999986 MG PO ×4 (00:37→18:16)
[2023-09-02 03:00] VITALS: RESP 15; O2SAT 97
[2023-09-02 04:00] VITALS: BP 108/72; PULSE 76; PULSE 77; RESP 15; TEMP 36.6; O2SAT 100; O2SAT 99
[2023-09-02] MEDS: Gabapentin 300 MG Capsule PO ×2 (04:24→18:16)
[2023-09-02 06:48] LABS: Hematocrit 33.1 % (40-54); Hemoglobin 11.3 g/dL (13.0-16.5); Mean Corp Hgb Conc 34.1 g/dL (32-36); Mean Corpuscular Volume 96.8 fL (80-94); Mean Platelet Vol. 12.9 fl (6.2-12.0); POSITIVE COUNT YES; Platelet Count 77 K/mm3 (150-450); RBC Distribution Width CV 14.6 % (11.6-14.6); RBC Distribution Width SD 51.8 fl (35.1-43.9); Red Blood Count 3.42 M/mm3 (4.6-6.2)
[2023-09-02 07:00] LABS: Anion Gap 4 (5-15); BUN 10 mg/dL (7-18); BUN/Creat Ratio 18.7 RATIO (10-20); Calcium,Total 8.6 mg/dL (8.5-10.1); Chloride 106 mmol/L (98-107); Creatinine, Serum 0.53 mg/dL (0.70-1.30); EST Glomerular Filtration Rate 164 mL/min (>60); Est Glom Filt Rate - Afr Amer 199 mL/min (>60); Estimated Creatinine Clearance 86.98 ml/min; Glucose 102 mg/dL (74-106); Potassium 3.7 mmol/L (3.5-5.1); Sodium Level 134 mmol/L (136-145)
[2023-09-02] MEDS: Thiamine Hydrochloride 100 MG Tablet PO (09:29)
[2023-09-02] MEDS: Folic Acid 1 MG Tablet PO (09:29)
[2023-09-02 10:00] VITALS: BP 94/49; PULSE 88; RESP 18; TEMP 36.6; O2SAT 97
--- NOTE | 2023-09-02 10:14 | CASEMGMT ---
Addendum entered by Evelyn Francois 09/02/23 16:08: Hospitalist updated on change in dc plan. Addendum entered by Evelyn Francois 09/02/23 15:37: Pt was made aware that his insurance will need to approve the SNF stay and he will stay here in the hospital until this decision is made. He is agreeable to this. Addendum entered by Evelyn Francois 09/02/23 14:47: Patient was provided a list of SNF providers including quality and resource use data and consistent with the patient?s preferred geographic region, medical needs, and insurance network were provided from the [employer] Guide created by MADHURI. Pt asked to give his top 3 preferences for SNF. Pt states his first choice is [facility]. Asked pt for 2nd and 3rd choices, pt states TCU. Asked if TCU is unable to take him who he would choose, pt states he either wants [facility] or he will go home. Made him aware this RN JOE will relay this information back to MADHURI and RN JOE or MADHURI will follow up with him. Pt verbalizes understanding. Addendum entered by Evelyn Francois 09/02/23 14:09: Received tc back from pt , October who states that she is unable to transport pt to a medical appt. She states that pt cut me off . He blocked her from facebook and did not want anything to do with her per her report. RN JOE into pt room, pt made aware of this. He states [facility] cannot take him either. He states that he could drive but he does not have legal plates at this time. He states an Protestant man was to get them for him. Pt nurse made aware that pt does not want to go home today as he feels he needs strengthening for one more day. Discussed with pt how he will manage at home and if he would be willing to get further therapy for short term. Pt asked where he could get this at. He is aware that list could be provided to him. Pt is agreeable to this. Updated SW. Addendum entered by Evelyn Francois 09/02/23 10:28: Received tc back from Tabitha from [facility] office, states pt has not been seen in about 3 years and has multiple no call/no shows. She states she will schedule pt with new provider Morales Potter, she gave options of days and times appts are available. She is aware this RN CM will call her back after speaking with pt niece as she will be pt transportation. TC to pt niece, left message with request to return call. Original Note: RN CM into pt room, pt sitting up in chair and nurse is in room. Pt states his ex stated he should have HHC. Made pt aware that he will need a PCP prior to HHC being set up. Pt states that he has seen Ch[facility] in the past but it has been a couple of years. Pt is agreeable to this RN CM calling his office and scheduling an appt as well as setting up transportation with his niece. TC to [facility] office, left message with spa receptionist. Will await returned call to confirm they will see pt.
[2023-09-02] MEDS: hydrOXYzine PAM 25 MG Capsule 50 MG PO ×2 (11:37→21:47)
[2023-09-02] MEDS: Acetaminophen 500 MG Tablet PO ×2 (11:37→18:16)
--- NOTE | 2023-09-02 13:19 | PCM.DC.SUM ---
Providers Date of Admission: 08/29/23 Date of Discharge: 09/02/23 Primary Care Physician: No Primary Care Phys Reason For Visit: ALCOHOL WITHDRAWAL SYND Diagnosis Discharge Diagnosis (1) Alcohol abuse: Status: Acute Code(s): F10.10 - Alcohol abuse, uncomplicated (2) Thrombocytopenia: Status: Acute Code(s): D69.6 - Thrombocytopenia, unspecified (3) Recurrent falls: Status: Acute Code(s): R29.6 - Repeated falls (4) T12 compression fracture: Status: Acute Code(s): S22.080A - Wedge compression fracture of T11-T12 vertebra, initial encounter for closed fracture Medications at Discharge Home Medications NK 08/29/23 Hospital Course Operations None Procedures - (CT brain/chest x-ray/lumbar spine CT) Summary of Care Provided Minutes Spent on Discharge: 36 Hospital Course: Mr. Womack is a 63-year-old white male who presented via EMS after suffering a fall on the morning of admission. He presented to emergency department on 08/29/2023 and stated he was on the floor for hours at which time he crawled to the couch and called his niece who then in turn called EMS. Patient reported that he had fallen very frequently since he had the flu about 3 weeks ago. He drinks about 12 beers a day and is currently urinating in a bucket next to him so he does not have to get up too much. On presentation he was complaining of some low back pain from the fall but denied hitting his head. He is noncompliant with medical care. On presentation he had not eaten in about 3 to 4 days and EMS reported that his whole living room in the house was in disarray with blood on the wall and carpet. Patient did acknowledge that he drinks too much and complained of having bruises all over his body. He was given IV fluids in the emergency department and admitted to the medical floor at which time he was started on a phenobarbital taper as well as supportive medications and thiamine and folate. 180 was consulted however the patient has declined any ongoing services from 180 and states he will do it on his own. Placement has been recommended and discussed at nausea with the patient however patient is adamant that he will go home once he is medically stable. The importance of ongoing rehab after discharge but he was set and going home. I do have high suspicion that he will return with worsening injury or complication that could result in and he was informed of this and still stated he wanted to go home. His readmission risk is high. On the day of discharge she did report that he had been previously diagnosed with Parkinson's but never followed up with anybody for this and has no intention to do so. He was still mildly tremulous nests with movement however is fine tremor related to his alcohol detox had resolved. He was anxious to go home and we felt that he was medically stable. APS referral was made. Case management called his previous primary care physician Dr. Dgigs, and they indicated they would get him into the office however I was trying for suspicion that he may not show up for his appointment. His platelet count was recovering at the time of discharge as it appears he has thrombocytopenia related to marrow toxicity and possibly liver related alcohol disease. He was discharged home in stable condition on 09/02/2023. He did say he would be amenable to home health however with him refusing to follow-up with a primary care physician we are unable to establish home health at discharge. He was informed of this prior to discharge. Discharge diagnoses: Acute Alcohol Withdrawal Mild Rhabdomyolysis Recurrent Falls Suspected Movement Disorder Acute compression fracture at T12 Chronic hyponatremia Hypokalemia Transaminitis Hyperbilirubinemia Thrombocytopenia Tobacco abuse Suspected COPD Physical Exam Narrative Const alert, oriented x3 and no apparent distress; Negative for average body habitus, healthy appearing or well nourished Constitutional Narrative: Upper middle-aged, white male who appears much older than stated age, thin, appears disheveled and very weak, tremor seems to be resolved at rest, sitting up in a chair, appears chronically ill and unhealthy at baseline General Appearance: cooperative, comfortable, well kempt and well developed Orientation / Consciousness: awake, oriented to person, oriented to place and oriented to time Exam Limitations: no limitations Nutritional Appearance: thin HEENT normocephalic, head/scalp atraumatic and moist oral mucous membranes HEENT Narrative: Dentition is poor, mild to moderate hearing loss, Mallampati 1 Eyes PERRL, EOMs intact bilaterally and conjunctivae normal Eyes Narrative: No scleral icterus Neck no lymphadenopathy and supple Neck Narrative: Trachea midline, no thyroid enlargement Resp normal respiratory effort, no retractions, no use of accessory muscles and clear to auscultation bilaterally Resp Narrative: Diffusely diminished but clear Auscultation: Negative for rales, rhonchi or wheezes Cardio regular rate, regular rhythm, S1 normal heart sound, S2 normal heart sound, no murmurs, no rub, no gallops and no clicks GI normal to inspection, nondistended, normoactive bowel sounds, soft to palpation and non-tender GI Narrative: Abdomen is scaphoid Extremity no clubbing, cyanosis or edema Extremity Narrative: Decreased lean muscle mass Skin skin turgor normal and no jaundice Skin Narrative: Scattered abrasions and ecchymosis with no signs of infection Neuro oriented x3, moves all extremities and no focal motor deficits Neuro Narrative: Marked generalized weakness, shuffling gait with some intermittent tremor during movement, no resting tremor noted today Speech: speech normal Psych Psych Narrative: Affect is flat and mood seems somewhat depressed Medical Records Data Medical Nutrition Assessment Dietitian: Malnutrition Criteria Met Start: 08/30/23 11:40 Freq: Status: Active Protocol: Document 08/30/23 12:12 RMA (Rec: 08/30/23 12:12 RMA [id number]) Nutrition Malnutrition Evidence of Malnutrition Exists Yes Malnutrition (severe): Chronic,Social/Behavioral/ Environmental Evidenced By Suboptimal Energy Intake ( Severe),Weight Loss (Severe), Physical Changes (Severe) Clinical Problem Chronic Disease or Condition Related Malnutrition Etiology Severe protein-calorie malnutrition in the context of chronic disease and social circumstance related to inadequate oral intake and ETOH abuse Signs/Symptoms as evidenced by BMI 18.4, approximately 19-20% unintentional weight loss x 1 year, PO meeting less than 50% estimated nutrition needs x 6 -12 months, severe muscle wasting and fat depletion in clavicle, temporal region, arms and legs and poor PO at meals since admit <25% meals Status Active Problem Recommendation Dietitian Recommendations/Changes Will continue liberalized regular diet and encourage PO at meals; will adjust food consistency to [id number] per pt request for softer foods. Will d/c ensure plus HP with medpass as pt is refusing. Will add chocolate magic cup milkshakes with lunch and dinner as tolerated. Adjust ONS as needed to optimize oral intake. Trend weight as available as PO adequacy established with meals. Weight / BMI Weight Weight: 66.8 kg Body Mass Index (BMI) 18.3 ABG / Lab / Microbiology Data 09/02/23 05:38 09/02/23 05:38 Laboratory: Laboratory Results - last 24 hr 09/02/23 05:38: WBC 5.0, RBC 3.42 L, Hgb 11.3 L, Hct 33.1 L, MCV 96.8 H, MCH 33.0 H, MCHC 34.1, RDW Std Deviation 51.8 H, RDW Coeff of Yousuf 14.6, Plt Count 77 L, MPV 12.9 H, Sodium 134 L, Potassium 3.7, Chloride 106, Carbon Dioxide 24.0, Anion Gap 4 L, BUN 10, Creatinine 0.53 L, Estim Creat Clear Calc 86.98, Est GFR (MDRD) Af Amer 199, Est GFR (MDRD) Non-Af 164, BUN/Creatinine Ratio 18.7, Glucose 102, Calcium 8.6 D/C Instructions Discharge Diet: No restrictions Discharge Activity: Return to Normal Activity Meaningful Use Info Meaningful Use Diagnoses (Choose all that apply): None applicable Discharge Plan Admission Admit Date/Time: 08/29/23 15:52 Primary Reason for Your Visit: Fall Attending Provider: Anu Wong Primary Care Provider: Care Physician,No Primary Consulting Providers: Jarret Romero Discharge Orders/Prescriptions Prescriptions: No Action NK Referrals / Follow Up: Sherry Patrick [Non-Staff] - None Care Physician,No Primary [Primary Care Provider] - Zev Koch MOTION STUDY ENGINEER, MOTION STUDY ENGINEER-C [Non-Staff] - See Referral Note (As instructed by case management) Disposition Disposition (needs filled in before D/C Order can be placed): Home, Self Care Charges/Coding Visit Charges Inpatient E&M: 20382 Disch Hosp >30min
--- NOTE | 2023-09-02 15:13 | CASEMGMT ---
Addendum entered by Amna Chandra 09/02/23 17:14: Social Work TCU has accepted pt and precert has been started. Green sheet placed on the pt chart to facilitate a weekend discharge. Pt cannot discharge unless TCU calls the unit with insurance authorization. Pt notified and appreciative of information. Physician updated. Plan: TCU, pending precert AARON Mars Original Note: Social Work Per RNCM, pt is now agreeable to go to TCU. Email referral sent to Larissa in TCU. SW will await determination of acceptance. Pt will need acceptance and precert prior to admission at TCU. Pt will be here through the weekend while TCU request is being processed. AARON Richardson
--- NOTE | 2023-09-02 16:07 | PCM.HOSP.N ---
Hospitalist Note I was notified later this afternoon that the patient has changed his mind and now is amenable to going to rehab. He will need pre-CERT so he will be here through the weekend with plans to discharge to TCU as soon as pre-CERT is obtained. Patient is medically stable for discharge at this time. Visit Charges Inpatient E&M: 29073 Subs Hosp L2
[2023-09-02 18:34] VITALS: BP 125/82; PULSE 90; RESP 18; TEMP 37.2; O2SAT 99
[2023-09-02 21:32] VITALS: BP 119/71; PULSE 80; RESP 15; TEMP 36.4; O2SAT 98
[2023-09-02 22:00] VITALS: BP 119/71; PULSE 80; RESP 15; TEMP 36.4; O2SAT 98
[2023-09-02] MEDS: traZODone 100 MG Tablet PO (22:51)
[2023-09-03 03:00] VITALS: BP 110/71; PULSE 78; RESP 15; TEMP 36.8; O2SAT 96
[2023-09-03 03:22] VITALS: BP 110/71; PULSE 77; RESP 15; TEMP 36.8; O2SAT 95
[2023-09-03] MEDS: Gabapentin 300 MG Capsule PO ×2 (03:29→12:36)
[2023-09-03 08:00] VITALS: BP 116/77; PULSE 80; RESP 20; TEMP 36.8; O2SAT 94
[2023-09-03] MEDS: Thiamine Hydrochloride 100 MG Tablet PO (08:06)
[2023-09-03] MEDS: hydrOXYzine PAM 25 MG Capsule 50 MG PO (08:06)
[2023-09-03] MEDS: Folic Acid 1 MG Tablet PO (08:06)
[2023-09-03] MEDS: Acetaminophen 500 MG Tablet PO ×2 (08:09→21:06)
[2023-09-03 12:06] VITALS: PULSE 90
[2023-09-03] MEDS: Menthol/Lanolin/Calamine/Znox 113 GM Tube 1 APPLIC TOPICAL ×2 (12:30→21:06)
[2023-09-03] MEDS: Heparin Injection (Vial) 5,000 UNIT/ML VIAL 5000 UNIT SC ×2 (12:32→21:05)
[2023-09-03 14:34] VITALS: BP 126/79; PULSE 82; PULSE 90; RESP 20; TEMP 36.7; O2SAT 94
--- NOTE | 2023-09-03 14:42 | PN.HOSP_ITS ---
Reason for Visit Reason for Visit: Fall Subjective Subjective No issues overnight. Patient still with tremor with movement but overall much improved. Waiting pre-CERT to go to the TCU at discharge. Objective Data Objective Data Vital Signs: Vital Signs Temp Pulse Resp BP Pulse Ox O2 Del Method 98.0 F 90 20 H 126/79 H 94 Room Air 09/03/23 14:34 09/03/23 14:34 09/03/23 14:34 09/03/23 14:34 09/03/23 14:34 09/03/23 12:06 Oxygen Delivery Method Room Air Weight: 66.8 kg Body Mass Index (BMI) 18.3 Intake & Output: Intake and Output for Last 24 Hours 09/01/23 09/02/23 09/03/23 23:59 23:59 23:59 Intake Total 240 / 440 200 / 600 400 / 400 Output Total 1000 / 1600 3400 / 4300 1500 / 1500 Balance -760 / -1160 -3200 / -3700 -1100 / -1100 Medical Nutrition Assessment Dietitian: Malnutrition Criteria Met Start: 08/30/23 11:40 Freq: Status: Active Protocol: Document 08/30/23 12:12 RMA (Rec: 08/30/23 12:12 RMA [id number]) Nutrition Malnutrition Evidence of Malnutrition Exists Yes Malnutrition (severe): Chronic,Social/Behavioral/ Environmental Evidenced By Suboptimal Energy Intake ( Severe),Weight Loss (Severe), Physical Changes (Severe) Clinical Problem Chronic Disease or Condition Related Malnutrition Etiology Severe protein-calorie malnutrition in the context of chronic disease and social circumstance related to inadequate oral intake and ETOH abuse Signs/Symptoms as evidenced by BMI 18.4, approximately 19-20% unintentional weight loss x 1 year, PO meeting less than 50% estimated nutrition needs x 6 -12 months, severe muscle wasting and fat depletion in clavicle, temporal region, arms and legs and poor PO at meals since admit <25% meals Status Active Problem Recommendation Dietitian Recommendations/Changes Will continue liberalized regular diet and encourage PO at meals; will adjust food consistency to [id number] per pt request for softer foods. Will d/c ensure plus HP with medpass as pt is refusing. Will add chocolate magic cup milkshakes with lunch and dinner as tolerated. Adjust ONS as needed to optimize oral intake. Trend weight as available as PO adequacy established with meals. Lab / Micro Data 09/02/23 05:38 09/02/23 05:38 Physical Exam Narrative Const alert, oriented x3 and no apparent distress; Negative for average body habitus, healthy appearing or well nourished Constitutional Narrative: Upper middle-aged, white male who appears much older than stated age, thin, appears disheveled and very weak, sitting up in a chair, appears chronically ill and unhealthy at baseline, nursing at bedside HEENT normocephalic, head/scalp atraumatic and moist oral mucous membranes Neuro oriented x3, moves all extremities and no focal motor deficits Speech: speech normal Psych Psych Narrative: Affect is flat and mood seems somewhat depressed Assessment & Plan Assessment/Plan (1) Alcohol abuse: (2) Thrombocytopenia: (3) Recurrent falls: (4) T12 compression fracture: (5) Severe malnutrition: PLAN: Plan Acute alcohol withdrawal -Resolved -Patient with history of chronic alcohol use dependence and tolerance -Drinks at least 12 12 ounce beers daily -Phenobarbital taper has been completed -Discontinue withdrawal medications -Discontinue thiamine and folate -Add multivitamin -Discontinue CIWA and Ativan -Patient was seen by 180 and declined any ongoing resources at discharge Mild rhabdomyolysis -Resolving on last CK assessment -No need to repeat Recurrent falls -Likely related to chronic alcohol use and generalized weakness related to recent flu -Continue PT/OT -At the time of discharge patient changed his mind and is now willing to go to [facility] for rehab-patient has asked been accepted at TCU and currently awaiting pre-CERT Acute compression fracture at T12 -Patient without any neurological changes -Mild retropulsion of the cortex was noted -Consider outpatient follow-up at this all if it is continues to be problematic for him -Continue as needed pain medication -Does not seem to be all that symptomatic at this time Severe malnutrition -Dietitian is following -Add dietary supplement Chronic hyponatremia -Mild -133 -Continue to monitor periodically Transaminitis/hyperbilirubinemia -Resolving-no need to repeat -ALT and alk phos have normalized -Total bilirubin has normalized with slightly elevated direct bilirubin -AST is just mildly elevated at 59 Severe thrombocytopenia -Coags are unremarkable -Likely related to marrow toxicity versus splenic sequestration -Platelet count for the first time today is above 50,000 and seems to be stabilizing -Continue to monitor periodically History of tobacco abuse -Patient denies need for nicotine replacement therapy -As needed aerosols -Recommend cessation DVT prophylaxis -Discontinue SCDs -Continue heparin subcu twice daily CODE STATUS -DNR CCA with no intubation as discussed on admission Charges/Coding Visit Charges Inpatient E&M: 15584 Subs Hosp L1
[2023-09-03 19:54] VITALS: BP 136/84; PULSE 89; RESP 18; TEMP 36.6; O2SAT 99
[2023-09-03] MEDS: 0.9% Saline Lock 10 ML Syringe IV (21:06)
[2023-09-04 02:16] VITALS: BP 133/79; PULSE 72; RESP 16; TEMP 36.5; O2SAT 98
[2023-09-04 06:34] LABS: Absolute Lymphocyte Count 1.18 X10^3/uL (0.83-4.51); Absolute Neutrophil Count 2.7 X10^3/uL (2.0-7.7); Basophil# 0.06 X10^3/uL; Basophil% 1.2 % (0-1); Eosinophil# 0.11 X10^3/uL; Eosinophils% 2.2 % (0-5); Hematocrit 33.7 % (40-54); Hemoglobin 11.3 g/dL (13.0-16.5); Lymphocyte # 1.18 X10^3/ul (0.83-4.51); Lymphocyte % 23.6 % (19-41); Mean Corp Hgb Conc 33.5 g/dL (32-36); Mean Corpuscular Hgb 32.3 pg (27.0-32.0); Mean Corpuscular Volume 96.3 fL (80-94); Mean Platelet Vol. 11.1 fl (6.2-12.0); Monocyte# 0.94 X10^3/uL; Monocyte% 18.8 % (0-10); NRBC Flagged by Analyzer 0 % (0-5); Neutrophil # 2.67 X10^3/uL (2.7-7.7); Neutrophil % 53.2 % (47-70); Platelet Count 164 K/mm3 (150-450); RBC Distribution Width SD 52.9 fl (35.1-43.9)
[2023-09-04 06:56] LABS: Anion Gap 2 (5-15); BUN 7 mg/dL (7-18); BUN/Creat Ratio 14.7 RATIO (10-20); Calcium,Total 8.6 mg/dL (8.5-10.1); Chloride 109 mmol/L (98-107); Creatinine, Serum 0.48 mg/dL (0.70-1.30); EST Glomerular Filtration Rate 188 mL/min (>60); Est Glom Filt Rate - Afr Amer 227 mL/min (>60); Estimated Creatinine Clearance 86.98 ml/min; Glucose 79 mg/dL (74-106); Potassium 3.8 mmol/L (3.5-5.1); Sodium Level 137 mmol/L (136-145)
[2023-09-04 08:00] VITALS: BP 135/80; PULSE 81; RESP 18; TEMP 36.6; O2SAT 94
[2023-09-04] MEDS: Multivitamins,Therapeutic Tablet 1 TABLET PO (08:22)
[2023-09-04] MEDS: Menthol/Lanolin/Calamine/Znox 113 GM Tube 1 APPLIC TOPICAL ×2 (10:55→20:30)
[2023-09-04] MEDS: Heparin Injection (Vial) 5,000 UNIT/ML VIAL 5000 UNIT SC ×2 (10:56→20:30)
--- NOTE | 2023-09-04 13:33 | PN.HOSP_ITS ---
Reason for Visit Reason for Visit: Fall Subjective Subjective No issues overnight. Patient states he is feeling fine. Awaiting pre-CERT for discharge to TCU. Objective Data Objective Data Vital Signs: Vital Signs Temp Pulse Resp BP Pulse Ox O2 Del Method 98 F 81 18 135/80 H 94 Room Air 09/04/23 08:00 09/04/23 08:00 09/04/23 08:00 09/04/23 08:00 09/04/23 08:00 09/04/23 08:00 Oxygen Delivery Method Room Air Weight: 66.8 kg Body Mass Index (BMI) 18.3 Intake & Output: Intake and Output for Last 24 Hours 09/02/23 09/03/23 09/04/23 23:59 23:59 23:59 Intake Total 200 / 600 400 / 400 1080 / 1080 Output Total 3400 / 4300 2850 / 2850 2600 / 2600 Balance -3200 / -3700 -2450 / -2450 -1520 / -1520 Medical Nutrition Assessment Dietitian: Malnutrition Criteria Met Start: 08/30/23 11:40 Freq: Status: Active Protocol: Document 08/30/23 12:12 RMA (Rec: 08/30/23 12:12 RMA [id number]) Nutrition Malnutrition Evidence of Malnutrition Exists Yes Malnutrition (severe): Chronic,Social/Behavioral/ Environmental Evidenced By Suboptimal Energy Intake ( Severe),Weight Loss (Severe), Physical Changes (Severe) Clinical Problem Chronic Disease or Condition Related Malnutrition Etiology Severe protein-calorie malnutrition in the context of chronic disease and social circumstance related to inadequate oral intake and ETOH abuse Signs/Symptoms as evidenced by BMI 18.4, approximately 19-20% unintentional weight loss x 1 year, PO meeting less than 50% estimated nutrition needs x 6 -12 months, severe muscle wasting and fat depletion in clavicle, temporal region, arms and legs and poor PO at meals since admit <25% meals Status Active Problem Recommendation Dietitian Recommendations/Changes Will continue liberalized regular diet and encourage PO at meals; will adjust food consistency to [id number] per pt request for softer foods. Will d/c ensure plus HP with medpass as pt is refusing. Will add chocolate magic cup milkshakes with lunch and dinner as tolerated. Adjust ONS as needed to optimize oral intake. Trend weight as available as PO adequacy established with meals. Lab / Micro Data 09/04/23 05:32 09/04/23 05:32 Labs: Laboratory Results - last 24 hr 09/04/23 05:32: WBC 5.0, RBC 3.50 L, Hgb 11.3 L, Hct 33.7 L, MCV 96.3 H, MCH 32.3 H, MCHC 33.5, RDW Std Deviation 52.9 H, RDW Coeff of Yousuf 15.0 H, Plt Count 164, MPV 11.1, Immature Gran % (Auto) 1.000 H, Neut % (Auto) 53.2, Lymph % ( Auto) 23.6, [place] % (Auto) 18.8 H, Eos % (Auto) 2.2, Baso % (Auto) 1.2 H, Absolute Neuts (auto) 2.7, Absolute Lymphs (auto) 1.18, Nucleated RBC % 0, Sodium 137, Potassium 3.8, Chloride 109 H, Carbon Dioxide 26.0, Anion Gap 2 L, BUN 7, Creatinine 0.48 L, Estim Creat Clear Calc 86.98, Est GFR (MDRD) Af Amer 227, Est GFR (MDRD) Non-Af 188, BUN/Creatinine Ratio 14.7, Glucose 79, Calcium 8.6 Physical Exam Narrative Const alert, oriented x3 and no apparent distress; Negative for average body habitus, healthy appearing or well nourished Constitutional Narrative: Thin, upper middle-aged, white male who appears much older than stated age, thin, appears disheveled and very weak, sitting up in a chair, appears chronically ill and unhealthy at baseline HEENT normocephalic, head/scalp atraumatic and moist oral mucous membranes HEENT Narrative: Dentition is poor GI GI Narrative: Abdomen is scaphoid Extremity Extremity Narrative: Decreased lean muscle mass Neuro oriented x3, moves all extremities and no focal motor deficits Neuro Narrative: No tremor Speech: speech normal Psych Psych Narrative: More interactive today Assessment & Plan Assessment/Plan (1) Alcohol abuse: (2) Thrombocytopenia: (3) Recurrent falls: (4) T12 compression fracture: (5) Severe malnutrition: PLAN: Plan Acute alcohol withdrawal -Resolved -Phenobarbital taper has been completed -Continue multivitamin -Patient was seen by 180 and declined any ongoing resources at discharge Mild rhabdomyolysis -Resolved Recurrent falls -Likely related to chronic alcohol use and generalized weakness related to recent flu -Continue PT/OT -Patient was discharged but change his mind at the last time and was willing to then go to rehab with pre-CERT pending for TCU Acute compression fracture at T12 -Patient without any neurological changes -Mild retropulsion of the cortex was noted -Consider outpatient follow-up at this all if it is continues to be problematic for him -Continue as needed pain medication -Does not seem to be all that symptomatic at this time Severe malnutrition -Dietitian is following -Add dietary supplement Chronic hyponatremia -Resolved Transaminitis/hyperbilirubinemia -Resolved Severe thrombocytopenia -Resolved as platelet count is now 164,000 -Likely from marrow toxicity related to alcohol use History of tobacco abuse -Patient denies need for nicotine replacement therapy -As needed aerosols -Recommend cessation DVT prophylaxis -Continue heparin subcu twice daily CODE STATUS -DNR CCA with no intubation as discussed on admission Charges/Coding Visit Charges Inpatient E&M: 13229 Subs Hosp L1
[2023-09-04 14:00] VITALS: BP 153/75; PULSE 79; RESP 18; TEMP 36.6; O2SAT 98
[2023-09-04] MEDS: Acetaminophen 500 MG Tablet PO ×2 (14:33→20:30)
[2023-09-04 20:01] VITALS: BP 132/86; PULSE 97; RESP 16; TEMP 36.6; O2SAT 96
[2023-09-05 02:11] VITALS: BP 135/85; PULSE 84; RESP 16; TEMP 36.7; O2SAT 96
[2023-09-05 08:15] VITALS: BP 148/90; PULSE 93; RESP 16; TEMP 36.4; O2SAT 96
[2023-09-05] MEDS: Acetaminophen 500 MG Tablet PO (08:38)
[2023-09-05] MEDS: Multivitamins,Therapeutic Tablet 1 TABLET PO (08:41)
[2023-09-05 09:18] VITALS: PULSE 93; RESP 18
[2023-09-05] MEDS: Heparin Injection (Vial) 5,000 UNIT/ML VIAL 5000 UNIT SC (11:09)
[2023-09-05] MEDS: Menthol/Lanolin/Calamine/Znox 113 GM Tube 1 APPLIC TOPICAL (11:09)
--- NOTE | 2023-09-05 11:53 | CASEMGMT ---
Email to Justo at [facility] [place] who is aware that pt plan for dc has changed. She will pick and shovel worker pt walker that had been delivered.
[2023-09-05 14:58] VITALS: BP 155/95; PULSE 82; RESP 18; TEMP 36.9; O2SAT 98
--- NOTE | 2023-09-05 15:59 | TREXTCAR_ITS ---
Diet Diet Order/Speech Therapy: 08/29/23 16:42 Diet: Regular - General Food consistency:: Easy to Chew Liquid Consistency:: Regular/Thin Type of Dietary Supplement:: Rosalio [employer] milkshake w/ L&D Is pt able to select menu?: No Diet Comments: With snacks three times daily as tolerated; soft foods, edentulous Routine Orders/Code Status Suppository Type: Dulcolax 10mg Suppository Frequency: Daily PRN Code Status: DNRCC-A Wound(s) all over body, generalized scrapes in various stages of healing: Wound Type: Abrasion Therapies Weight Bearing: Weight bearing as tolerated Extremity Affected:: Bilateral Lower Physical Therapy: Eval and Treat Occupational Therapy: Eval and Treat Speech Therapy: Eval and Treat Problem/Diagnosis (1) Alcohol abuse: Status: Acute Code(s): F10.10 - Alcohol abuse, uncomplicated (2) Thrombocytopenia: Status: Acute Code(s): D69.6 - Thrombocytopenia, unspecified (3) Recurrent falls: Status: Acute Code(s): R29.6 - Repeated falls (4) T12 compression fracture: Status: Acute Code(s): S22.080A - Wedge compression fracture of T11-T12 vertebra, initial encounter for closed fracture (5) Severe malnutrition: Status: Acute Code(s): E43 - Unspecified severe protein-calorie malnutrition Plan This is a 63-year-old gentleman being admitted for acute alcohol withdrawal and severe back pain with multiple falls on single day. Patient was very resistant and opposed to EMS for coming to ED. 1. Acute alcohol withdrawal syndrome with history of chronic alcohol use, dependence and tolerance: Patient is being admitted to MedSurg floor. Patient on phenobarbital based order set along with other adjunctive medications gabapentin, Bentyl, Vistaril, clonidine, Klonopin as needed for alcohol withdrawal symptom control. Patient is on thiamine and folate acid. [place] monitor. computer security manager consulted. 08/30: Overall withdrawal symptoms are better. No seizure. No hallucination. U tox screen negative. 0. 2. Acute on recurrent fall probably due to chronic alcohol use, generalized weakness, disequilibrium with mild rhabdomyolysis: PT and OT ordered. UA shows occult blood, RBC 0-5 cells and probably due to myoglobinuria. WBC 0. 3. Acute compression fracture of T12 vertebral body: Patient has tenderness over T12 vertebra but he can lift both lower extremities, muscle strength 4/5 with intact perineal sensation, voiding urine, cauda equina symptoms unlikely. Lumbar spine CT shows acute high-grade compression fracture of T12 vertebral body with mild retropulsion of the cortex. No central canal compromise. Loss of T12 vertebral body height with focal kyphotic deformity. When patient is out of alcohol withdrawal can have evaluation for kyphoplasty but currently out of the question. 4. Most likely chronic hyponatremia from beer potomania associated with low solute intake: Patient has not been eating or drinking for 4 days. Gradual bringing up sodium to around 137 138. Last sodium was 139 in August 2021. Patient had 1 L of normal saline in ED. 08/30 patient is well-hydrated. 5. Acute/subacute alcoholic hepatitis: Liver chemistry shows TB 1.3, ALT AST 106, 167 respectively, alkaline phosphatase 130. CCK 1577 showing mild rhabdomyolysis. Continue IV fluid normal saline. Patient does not have right upper quadrant abdominal pain or tenderness. Severe hypoalbuminemia from chronic alcohol use. 6. Multiple subcutaneous bruise/wound and ecchymosis: Patient has thrombocytopenia 49,000. Previous platelet count was 314,000 in August 2021. INR 0.9. DVT prophylaxis: Moderate to high risk. Pharmacological prophylaxis contraindicated due to multiple bruises and wounds and severe thrombocytopenia. Bilateral SCDs Living will/advanced directive/end of life care: Patient does not have living will or advanced directive. Patient does not have dilated power of dope house operator helper for health. After discussion of benefits/risks procedures involved with full code, DNR CC arrest and DNR CC, the patient opted for DNR CC arrest with no intubation. Patient states when my and time comes, let me go. Patient doesn't want artificial life support including intubation, tube feed, ventilator and/chest compression, central venous catheter, vasopressor and DC shock if needed Clinical Impression(s) from Imaging Studies Lumbar Spine CT 08/29/23 14:32 IMPRESSION: 1. Acute high-grade compression fracture of the T12 vertebral body, but with mild retropulsion of the cortex. A focal kyphotic deformity is present at the T11-T12 level due to loss of T12 vertebral body height. No central canal compromise is present, however may consider consulting with interventional radiology or the spine service for possible kyphoplasty given the focal deformity. 2. Multilevel degenerative changes, as described above. Chest X-Ray 08/29/23 15:06 IMPRESSION: 1. No demonstrated consolidation or infiltrates or pleural effusion. Mild cystic emphysematous changes and hyperinflation of both lungs noted. 2. The patient has an acute T12 vertebral body compression deformity not visualized by plain film was seen on the CT of the lumbar spine performed on the same day. Brain CT 08/29/23 15:12 IMPRESSION: 1. Chronic involutional changes of the brain. Electronically Signed: Og Benavides MD at 15:31 EST , Allergies/Procedures Done in Hospital Allergies No Known Allergies Allergy (Verified 08/29/23 14:24) Type of Care/Length of Stay Estimated LOS: Convalescent Care Less Than 30 days Type of Care Needed: Skilled Rehab Potential: Good Prognosis: Good Additional Orders/Day of Discharge Day of Discharge: 09/05/23 Dietary and Speech Recommendations Dietitian Recommendations/Changes: Will continue liberalized regular diet and encourage PO at meals; will adjust food consistency to [id number] per pt request for softer foods. Will d/c ensure plus HP with medpass as pt is refusing. Will add chocolate magic cup milkshakes with lunch and dinner as tolerated. Adjust ONS as needed to optimize oral intake. Trend weight as available as PO adequacy established with meals. Discharge Plan Admission Admit Date/Time: 08/29/23 15:52 Primary Reason for Your Visit: Recurrent fall and multiple bruises. Attending Provider: Jarret Romero Primary Care Provider: Care Physician,No Primary Consulting Providers: Jarret Romero; Anu Wong; Kennedy Echeverria Discharge Orders/Prescriptions Prescriptions: New multivitamin Tablet 1 tab PO BREAKFAST Qty: 0 0RF sennosides [senna] 8.6 mg Tablet 8.6 mg PO QHS PRN (Reason: Constipation) Qty: 0 0RF nicotine 21 mg/24 hr Patch 24 Hour 21 mg transdermal DAILY Qty: 0 0RF Ensure Plus High Protein 0.08 gram-1.5 kcal/mL Liquid 120 ml PO TIDCM Qty: 0 0RF thiamine HCl (vitamin B1) 100 mg tablet 100 mg PO DAILY Qty: 30 3RF folic acid 1 mg tablet 1 mg PO DAILY Qty: 30 3RF acetaminophen 500 mg Tablet 500 mg PO Q4H PRN PRN (Reason: Pain 1-10 or Temp > 100.4 F) Qty: 0 0RF Referrals / Follow Up: Sherry Patrick [Non-Staff] - None Care Physician,No Primary [Primary Care Provider] - Zev Koch ROOMS DIRECTOR, ROOMS DIRECTOR-C [Non-Staff] - See Referral Note (As instructed by case management) Disposition Disposition (needs filled in before D/C Order can be placed): Home, Self Care
[2023-09-05 16:03] VITALS: BP 155/95; PULSE 82; RESP 16; TEMP 36.9; O2SAT 95
--- NOTE | 2023-09-05 16:03 | DS.PCM_ITS ---
Providers Date of Admission: 08/29/23 Primary Care Physician: No Primary Care Phys Reason For Visit: ALCOHOL WITHDRAWAL SYND Diagnosis Discharge Diagnosis (1) Alcohol abuse: Status: Acute Code(s): F10.10 - Alcohol abuse, uncomplicated (2) Thrombocytopenia: Status: Acute Code(s): D69.6 - Thrombocytopenia, unspecified (3) Recurrent falls: Status: Acute Code(s): R29.6 - Repeated falls (4) T12 compression fracture: Status: Acute Code(s): S22.080A - Wedge compression fracture of T11-T12 vertebra, initial encounter for closed fracture (5) Severe malnutrition: Status: Acute Code(s): E43 - Unspecified severe protein-calorie malnutrition Plan This is a 63-year-old gentleman being admitted for acute alcohol withdrawal and severe back pain with multiple falls on single day. Patient was very resistant and opposed to EMS for coming to ED. 1. Acute alcohol withdrawal syndrome with history of chronic alcohol use, dependence and tolerance: Patient is being admitted to MedSurg floor. Patient on phenobarbital based order set along with other adjunctive medications gabapentin, Bentyl, Vistaril, clonidine, Klonopin as needed for alcohol withdrawal symptom control. Patient is on thiamine and folate acid. CIWA monitor. developer relations manager consulted. 3/4: No acute seizures. Patient is on thiamine and folic acid.U tox screen negative. 2. Acute on recurrent fall probably due to chronic alcohol use, generalized weakness, disequilibrium with mild rhabdomyolysis: PT and OT ordered. UA shows occult blood, RBC 0-5 cells and probably due to myoglobinuria. WBC 0. 3. Acute compression fracture of T12 vertebral body: Patient has tenderness over T12 vertebra but he can lift both lower extremities, muscle strength 4/5 with intact perineal sensation, voiding urine, cauda equina symptoms unlikely. Lumbar spine CT shows acute high-grade compression fracture of T12 vertebral body with mild retropulsion of the cortex. No central canal compromise. Loss of T12 vertebral body height with focal kyphotic deformity. 3/4: Follow-up with the pain management, Dr. Quirino Perry. 4. Most likely chronic hyponatremia from beer potomania associated with low solute intake: Patient has not been eating or drinking for 4 days. Gradual bringing up sodium to around 137 138. Last sodium was 139 in August 2021. Patient had 1 L of normal saline in ED. 3/4: Patient is well-hydrated. 5. Acute/subacute alcoholic hepatitis: Liver chemistry shows TB 1.3, ALT AST 106, 167 respectively, alkaline phosphatase 130. CCK 1577 showing mild rhabdomyolysis. Continue IV fluid normal saline. Patient does not have right upper quadrant abdominal pain or tenderness. Severe hypoalbuminemia from chronic alcohol use. 6. Multiple subcutaneous bruise/wound and ecchymosis: Patient has thrombo cytopenia 49,000. Previous platelet count was 314,000 in August 2021. INR 0.9. 3/: Multiple subcutaneous bruises and ecchymosis are healing good. DVT prophylaxis: Moderate to high risk. Pharmacological prophylaxis contraindicated due to multiple bruises and wounds and severe thrombocytopenia. Bilateral SCDs Living will/advanced directive/end of life care: Patient does not have living will or advanced directive. Patient does not have dilated power of employment attorney for health. After discussion of benefits/risks procedures involved with full code, DNR CC arrest and DNR CC, the patient opted for DNR CC arrest with no intubation. Patient states when my and time comes, let me go. Patient doesn't want artificial life support including intubation, tube feed, ventilator and/chest compression, central venous catheter, vasopressor and DC shock if needed Discharge medication reconciliation done. Discharge follow-up instructions completed. Discharge process discussed with the patient and all questions were answered to patient's satisfaction. Follow with PCP in 1 to 2 weeks Total time spent, exact 35 minutes on discharge meds reconciliation, examination, coordination of care with nurses and ancillary staff, review of imaging and blood test and discussion with the patient on follow-up instructions. Clinical Impression(s) from Imaging Studies Lumbar Spine CT 08/29/23 14:32 IMPRESSION: 1. Acute high-grade compression fracture of the T12 vertebral body, but with mild retropulsion of the cortex. A focal kyphotic deformity is present at the T11-T12 level due to loss of T12 vertebral body height. No central canal compromise is present, however may consider consulting with interventional radiology or the spine service for possible kyphoplasty given the focal deformity. 2. Multilevel degenerative changes, as described above. Chest X-Ray 08/29/23 15:06 IMPRESSION: 1. No demonstrated consolidation or infiltrates or pleural effusion. Mild cystic emphysematous changes and hyperinflation of both lungs noted. 2. The patient has an acute T12 vertebral body compression deformity not visualized by plain film was seen on the CT of the lumbar spine performed on the same day. Brain CT 08/29/23 15:12 IMPRESSION: 1. Chronic involutional changes of the brain. Electronically Signed: Og Benavides MD at 15:31 EST Reading Location ID and State: [facility] / [place] , Service support , Medications at Discharge Home Medications acetaminophen 500 mg tablet 500 mg PO Q4H PRN PRN Pain 1-10 or Temp > 100.4 F #0 tabs 09/05/23 folic acid 1 mg tablet 1 mg PO DAILY #30 tabs 09/05/23 food supplemt, lactose-reduced 0.08 gram-1.5 kcal/mL oral liquid (Ensure Plus High Protein) 120 ml PO TIDCM #0 mL 09/05/23 multivitamin 1 tab PO BREAKFAST #0 tabs 09/05/23 nicotine 21 mg/24 hr daily transdermal patch 21 mg transdermal DAILY #0 ea 09/05/23 sennosides 8.6 mg tablet (senna) 8.6 mg PO QHS PRN Constipation #0 tabs 09/05/23 thiamine HCl (vitamin B1) 100 mg tablet 100 mg PO DAILY #30 tabs 09/05/23 Physical Exam Narrative Seen and examined on the day of discharge Physical exam General: Awake, oriented x 3. Cooperative. In moderate pain HEENT: Atraumatic, PERRLA, EOMI, Normocephalic Oral: Oral mucosa moist. No Gingival or Mucosal Lesions/ Ulcerations Neck: Supple, No JVD, Negative Carotid Bruits Chest wall/Lungs: Air entry diminished in bilateral lung bases. No crepitation/rhonchi Cardiovascular: Regular rate, Regular Rhythm, Normal S1, Normal S2, No M/G/R Abdomen: Bowel Sounds Present, Soft, Non Tender, Non-Distended : Spontaneously voiding urine. No dysuria. No renal angle tenderness. No suprapubic tenderness. Extremities: No edema, Capillary Refill Less than 3 Seconds Skin: Bruise, scabs, ecchymosis and excoriations all over the body including knees and lower extremities they are dry and healing good. Musculoskeletal: No tenderness present to lower extremities. Muscle strength 4/5 at knees and hip joints but painful and tender. Spine: Tenderness present on T11, T12 to L1. T12 vertebral fracture. Neurological: Cranial nerves II-XII grossly intact, DTR 2+/4. Sensation around perineal region and testicles. Does not seem cauda equina syndrome. Psych/Mental Status: Normal Affect, Appropriate. Medical Records Data Medical Nutrition Assessment Dietitian: Malnutrition Criteria Met Start: 08/30/23 11:40 Freq: Status: Active Protocol: Document 08/30/23 12:12 RMA (Rec: 08/30/23 12:12 RMA [id number]) Nutrition Malnutrition Evidence of Malnutrition Exists Yes Malnutrition (severe): Chronic,Social/Behavioral/ Environmental Evidenced By Suboptimal Energy Intake ( Severe),Weight Loss (Severe), Physical Changes (Severe) Clinical Problem Chronic Disease or Condition Related Malnutrition Etiology Severe protein-calorie malnutrition in the context of chronic disease and social circumstance related to inadequate oral intake and ETOH abuse Signs/Symptoms as evidenced by BMI 18.4, approximately 19-20% unintentional weight loss x 1 year, PO meeting less than 50% estimated nutrition needs x 6 -12 months, severe muscle wasting and fat depletion in clavicle, temporal region, arms and legs and poor PO at meals since admit <25% meals Status Active Problem Recommendation Dietitian Recommendations/Changes Will continue liberalized regular diet and encourage PO at meals; will adjust food consistency to [id number] per pt request for softer foods. Will d/c ensure plus HP with medpass as pt is refusing. Will add chocolate magic cup milkshakes with lunch and dinner as tolerated. Adjust ONS as needed to optimize oral intake. Trend weight as available as PO adequacy established with meals. Weight / BMI Weight Weight: 147 lb 4.301 oz Body Mass Index (BMI) 18.3 ABG / Lab / Microbiology Data 09/04/23 05:32 09/04/23 05:32 D/C Instructions Discharge Diet: No restrictions Meaningful Use Info Meaningful Use Diagnoses (Choose all that apply): None applicable Discharge Plan Admission Admit Date/Time: 08/29/23 15:52 Primary Reason for Your Visit: Recurrent fall and multiple bruises. Attending Provider: Jarret Romero Primary Care Provider: Care Physician,No Primary Consulting Providers: Jarret Romero; Anu Wong; Kennedy Echeverria Discharge Orders/Prescriptions Prescriptions: New multivitamin Tablet 1 tab PO BREAKFAST Qty: 0 0RF sennosides [senna] 8.6 mg Tablet 8.6 mg PO QHS PRN (Reason: Constipation) Qty: 0 0RF nicotine 21 mg/24 hr Patch 24 Hour 21 mg transdermal DAILY Qty: 0 0RF Ensure Plus High Protein 0.08 gram-1.5 kcal/mL Liquid 120 ml PO TIDCM Qty: 0 0RF thiamine HCl (vitamin B1) 100 mg tablet 100 mg PO DAILY Qty: 30 3RF folic acid 1 mg tablet 1 mg PO DAILY Qty: 30 3RF acetaminophen 500 mg Tablet 500 mg PO Q4H PRN PRN (Reason: Pain 1-10 or Temp > 100.4 F) Qty: 0 0RF Referrals / Follow Up: Sherry Patrick [Non-Staff] - None Care Physician,No Primary [Primary Care Provider] - Zev Koch MAINTENANCE SHOP WELDER, MAINTENANCE SHOP WELDER-C [Non-Staff] - See Referral Note (As instructed by case management) Quirino Perry MD [Med Staff - Active Staff] - Within 2 Weeks (For T12 vertebral fracture.) Disposition Disposition (needs filled in before D/C Order can be placed): Home, Self Care Charges/Coding Visit Charges Inpatient E&M: 41348 Disch Hosp >30min
--- NOTE | 2023-09-05 16:18 | CASEMGMT ---
Social Work TCU is able to accept and precert has been obtained. Physician notified and pt is ready for discharge today. Discharge orders faxed to TCU and Larissa in TCU notified that pt will be discharging. SW met with pt and updated on discharge plan and pt is agreeable. Nursing updated. Disposition: TCU, skilled level of care AARON Mars
== END 2023-09-05 18:29 | disposition skilled nursing facility (03) | DRG 896 ==
LOC: ED 15:55 → MS3 16:19
PROVIDERS: Internal Medicine; Physician Assistant; Admitting Provider Internal Medicine; Emergency Provider Emergency Medicine; Visit Provider Internal Medicine
DX: F10.231 Alcohol dependence with withdrawal delirium (principal); E43 Unspecified severe protein-calorie malnutrition; S22.080A Wedge compression fracture of T11-T12 vertebra, initial encounter for closed fracture; M62.82 Rhabdomyolysis; Z68.1 Body mass index [BMI] 19.9 or less, adult; D69.59 Other secondary thrombocytopenia; J44.9 Chronic obstructive pulmonary disease, unspecified; K70.10 Alcoholic hepatitis without ascites; E87.6 Hypokalemia; E86.0 Dehydration; W19.XXXA Unspecified fall, initial encounter; Z91.199 Patient's noncompliance with other medical treatment and regimen due to unspecified reason; G89.29 Other chronic pain; R29.6 Repeated falls; Z66 Do not resuscitate; Z87.891 Personal history of nicotine dependence; Y92.009 Unspecified place in unspecified non-institutional (private) residence as the place of occurrence of the external cause
CPT/HCPCS: 36415; 70450; 71045; 72131; 80048; 80053; 80076; 80307; 81001; 82550; 82607; 82746; 83735; 85025; 85027; 85610; 93005; 97110; 97116; 97162; 97166; 97530; 97535; 97802; 99285; J7030; J7120; A4216; J2405

== ENCOUNTER 2023-09-05 18:30 | Inpatient (IN) | payer MEDICARE, SELFPAY ==
[2023-09-05 19:55] VITALS: BP 122/89; PULSE 82; RESP 16; O2SAT 99
--- NOTE | 2023-09-05 20:06 | NURSING ---
Patient c/o 03/13 back pain, bp 153/98 at this time, Dr. Honeycutt notified via telephone new orders received: change tylenol to 1,000mg Q6H PRN for pain scale 1-5 and Ultram 50mg Q6H PRN pain scale 6-10. Orders repeated back to Dr. Honeycutt.
[2023-09-05 20:30] VITALS: BP 122/89; PULSE 102; RESP 16
--- OUTSIDE RECORDS SUMMARY | 2023-09-05 20:30 | XMS RPT_ITS | CCD ---
Author Name Unknown Address [address] [place] [address] Organization [facility] Care Team Providers Care Facility Maintenance Supervisor Name Role Phone VEL AGARWAL APRN, CNP Primary Care Phys ician Allergies Allergy Classification Reported Allergen(s) Allergy Type Date of Onset Reaction(s) Facility (3 sources) NSAIDs; Translations: [NSAIDs] Drug allergy Stomach ache (finding) [facility] Work Phone: (3 sources) Sulfonamides (Antibiotic); Translations: [sulfa drugs] Drug allergy Stomach ache (finding) [facility] Work Phone: Medications Current Medications Medication Drug [...] BID, # 3 EA, 1 Refill(s), Pharmacy: [id number], COPD without exacerbation, 190, cm, [...] 10-13-2021 End: 10-17-2021 Outreach Lab VEL ESCOBEDO RECREATION SPECIALIST - ACCOUNTANT [facility] Start: 09-10-2021 End: 09-14-2021 Outreach Lab VEL ESCOBEDO RECREATION SPECIALIST - ACCOUNTANT [facility] Start: 07-01-2021 End: 07-01-2021 Patient encounter procedure JUAN DELATORRE RECREATION SPECIALIST-CARDIOLOGY NURSE [facility] Start: 06-11-2021 End: 06-11-2021 Patient encounter procedure VEL ESCOBEDO RECREATION SPECIALIST - ACCOUNTANT [facility] Procedures Date Procedure Procedure Detail Performing Clinician Breast structure (body structure) JUAN DELATORRE RECREATION SPECIALIST-CARDIOLOGY NURSE Immunizations Immunization Date Immunization Notes Care Provider Fa kelly 05-26-2021 influenza, injectabl e, quadrivalent, contains preservative; Translations: [Fluarix PF Quadrivalent ] VEL ESCOBEDO RECREATION SPECIALIST - ACCOUNTANT [facility] Social History Date Type Detail Facility Start: 05-26-2021 Heavy tobacco smoker (finding) [facility] Sex Assigned At [facility] Evaluation + Plan note Radiology Note Date & Type Note Facility Evaluation + Plan note Future Appointments Appointment Date:06/23/2021 08:00:00 AM Scheduled Provider:VEL ESCOBEDO APRN ACCOUNTANT Location:[facility] Appointment Type:PC OV Follow Up Future Scheduled TestsUS Breast Bilateral Limited 06/09/21MA Mammo Diagnostic Bilateral w/Kyree 06/03/21 [facility] Evaluation + Plan note LaboratoryRadiology Note Date & Type Note Facility Evaluation + Plan note Future Appointments Appointment Date:07/09/2021 03:00:00 PM Scheduled Provider: Location:[facility] [place] Appointment Type:CV HEADING MAKER Appointment Date:09/11/2021 09:30:00 AM Scheduled Provider: Location:[facility] Appointment Type:PC Nurse Lab Appointment Date:09/22/2021 08:20:00 AM Scheduled Provider:VEL ESCOBEDO APRN, CNP Location:[facility] Appointment Type:PC OV Future Scheduled TestsFolate Level 09/21/21Vitamin B12 Level 09/21/21Complete Blood Count 09/21/21Lipid Profile 09/21/21Vitamin D Level 09/21/21Complete Metabolic Panel 09/21/21US Breast Bilateral Limited 06/09/21MA Mammo Diagnostic Bilateral w/Kyree 06/03/21 [facility] Evaluation + Plan note Laboratory Note Date & Type Note Facility Evaluation + Plan note Future Appointments Appointment Date:09/17/2021 02:00:00 PM Scheduled Provider: Location:[facility] [employer] Appointment Type:CV OV Appointment Date:09/22/2021 08:20:00 AM Scheduled Provider:VEL ESCOBEDO APRN, CNP Location[facility] Appointment Type:PC OV Future Scheduled TestsC-Reactive Protein 08/20/21Sedimentation Rate Automated 08/20/21 [facility] Evaluation + Plan note Laboratory Note Date & Type Note Facility Evaluation + Plan note Future Appointments Appointment Date:10/22/2021 01:30:00 PM Scheduled Provider: Location:[facility] [employer] Appointment Type:CV OV Appointment Date:12/10/2021 09:00:00 AM [...] 12/23/21Vitamin D Level 03/25/22Complete Metabolic Panel 03/25/22 [facility] Hospital course Narrative Note Date & Type Note Facility Hospital course Narrative No data available for this section [facility] Hospital Discharge instructions Note Date & Type Note Facility Hospital Discharge instructions No data available for this section [facility] Progress note Note Date & Type Note Facility Progress note No data available for this section [facility] Summary Purpose Family History No Family History Records Found Advance Directives No Advanced Directives Records Found Additional Source Comments Care Team (unrecognized sect ion and content) Personnel Name: VEL ESCOBEDO RECREATION SPECIALIST - ACCOUNTANT Address: [address] [place] [address] (unrecognized sect ion and content) No [...] BE BASED ON THE PRIMARY CLINICAL RECORDS. [facility]. provides no warranty or guarantee of the accuracy or completeness of information in this document.
[2023-09-05] MEDS: traMADol 50 MG Tablet PO (21:04)
--- NOTE | 2023-09-05 21:33 | HP.PCM_ITS ---
HPI - General General Date of Admission: 09/05/23 Date of Service: 09/06/23 Chief Complaint: Here for rehabilitation. HPI Narrative 08/29/2023 JULI DAVIDSON, is a 63 Male who presents to [facility] ED with fall. Fell, could not get up, on floor for hours, crawled to get help. Flu 3 weeks ago,. 12 beers per day, urinates in bucket to avoid moving. Low back pain. CT showed T12 compression fracture. IV fluids, pain medication. 08/29/2023 Admit to [facility]. Alcohol withdrawal protocol. PT/OT for falls. Consider kyphoplasty for T12 compression fracture. Hyponatremia 08/05 alcoholism. IV fluids for rhabdomyolysis. 08/30/2023 Improved, thoracic back pain. Withdrawal improved, urine tox negative. Well hydrated. 08/31/2023 Shaking, off balance. Ativan PRN shaking, Declined 180 alcohol counseling. Declined SNF. 09/01/2023 Wants to go home. No thoracic pain. 09/02/2023 Now willing to go to TCU. 09/03/2023 Tremor with movement, pre-CERT for TCU. 09/04/2023 Feeling fine, await pre-CERT for TCU. 09/05/2023 Admit to TCU with debility, here for rehabilitation, strengthening, prior to discharge home alone. COUNTS INCLUDE 234 BEDS AT THE [facility] Medical History (Updated 09/05/23 @ 21:[address] Elgin Honeycutt MD) Debility Fall Hyponatremia Rhabdomyolysis Home Medications acetaminophen 500 mg tablet 500 mg PO Q4H PRN PRN Pain 1-10 or Temp > 100.4 F #0 tabs 09/05/23 [Rx Last Taken 09/05/23] folic acid 1 mg tablet 1 mg PO DAILY supplement #30 tabs 09/05/23 [Rx Last Taken 09/05/23] food supplemt, lactose-reduced 0.08 gram-1.5 kcal/mL oral liquid (Ensure Plus High Protein) 120 ml PO TIDCM supplement #0 mL 09/05/23 [Rx Last Taken 09/05/23] multivitamin 1 tab PO BREAKFAST supplement #0 tabs 09/05/23 [Rx Last Taken 09/05/23] nicotine 21 mg/24 hr daily transdermal patch 21 mg transdermal DAILY smoking cessation #0 ea 03/04/24 [Rx Last Taken 09/05/23] sennosides 8.6 mg tablet (senna) 8.6 mg PO QHS PRN Constipation #0 tabs 09/05/23 [Rx Last Taken 09/05/23] thiamine HCl (vitamin B1) 100 mg tablet 100 mg PO DAILY supplement #30 tabs 09/05/23 [Rx Last Taken 09/05/23] Allergy/AdvReac Type Severity Reaction Status Date / Time No Known Allergies Allergy Verified 08/29/23 14:24 Social History (Updated 09/05/23 @ 21:[address] Elgin Honeycutt MD) household members: none Smoking Status: Current every day smoker tobacco type: cigars alcohol intake: current Alcohol type: beer details: 12 beers daily. substance use type: does not use ROS Constitutional Constitutional: Reports fatigue and weakness; Denies chills, fever(s) or weight gain ENT HEENT: Denies headache(s), nasal congestion or nasal discharge Cardiovascular Cardiovascular: Denies chest pain or palpitations Respiratory/Chest Respiratory/Chest: Denies cough, excessive phlegm production or shortness of breath with exertion Gastrointestinal Gastrointestinal: Denies abdominal pain, nausea or vomiting Genitourinary Genitourinary: Denies dysuria Musculoskeletal Musculoskeletal: Denies joint pain or joint swelling Integumentary Integumentary: Denies rash or wounds Neurologic Neurologic: Denies focal weakness, numbness or tingling Psychiatric Psychiatric: Denies anxiety, auditory hallucinations, depression, homicidal ideation or suicidal ideation Physical Exam Const alert General Appearance: cooperative HEENT normocephalic Eyes PERRL and EOMs intact bilaterally Neck supple, no JVD and no carotid bruits Resp normal respiratory effort, normal air movement and clear to auscultation bilaterally Cardio regular rate and regular rhythm GI normal to inspection, nondistended, normoactive bowel sounds, non-tender and non-distended Extremity normal capillary refill General Extremity: Negative for edema Skin no rashes or lesions noted General Skin Exam: no breakdown Psych affect normal Appearance: appropriate Results Lab / Micro Data 09/06/23 05:40 09/06/23 05:40 Assessment & Plan Assessment/Plan (1) Debility: (2) Fall: (3) T12 compression fracture: (4) Hyponatremia: (5) Rhabdomyolysis: (6) Alcohol abuse: PLAN: Plan 63 year old female with below past medical history hospitalized for fall, T12 compression fracture, rhabdomyolysis, alcohol withdrawal, hyponatremia, admitted to TCU debility, here for rehabilitation, strengthening, prior to discharge home alone. * Debility - PT/OT. * Pain - Tylenol 1000mg q6 prn pain (1-3), Tramadol 50mg q6 prn pain (4-5), Oxycodone 5mg q4 prn pain (6-10). * Bowel - senna/colace 1 tablet bid, Magnesium citrate 300ml daily prn. * Adult immunization - Administer pneumonia vaccine, covid vaccine, flu vaccine as appropriate. * DVT prophylaxis - Lovenox 40mg sc daily. * Nutrition - Ensure Plus 120ml tidcm. * Alcohol Abuse - Folic acid 1mg daily, Thiamine 100mg daily, MVI daily. * Tobacco Abuse - Nicotine 21mg td daily. * T12 compression fracture - Consider kyphoplasty.
[2023-09-05 22:00] VITALS: BMI 19.5
--- NOTE | 2023-09-06 00:13 | NURSING ---
Patient agreeable to flu vaccine and pneumovac, unable to recall previous vaccine history and states has not had a PCP for years . Written communication left for regarding patient requests and no vaccine history available.
[2023-09-06 02:41] VITALS: BMI 19.1
[2023-09-06] MEDS: Enoxaparin 40 MG/0.4 ML Syringe SC (05:52)
[2023-09-06 06:13] LABS: Absolute Lymphocyte Count 1.09 X10^3/uL (0.83-4.51); Absolute Neutrophil Count 2.2 X10^3/uL (2.0-7.7); Basophil# 0.04 X10^3/uL; Basophil% 0.9 % (0-1); Eosinophil# 0.09 X10^3/uL; Hematocrit 35.2 % (40-54); Hemoglobin 11.7 g/dL (13.0-16.5); Lymphocyte # 1.09 X10^3/ul (0.83-4.51); Lymphocyte % 23.8 % (19-41); Mean Corp Hgb Conc 33.2 g/dL (32-36); Mean Corpuscular Hgb 32.7 pg (27.0-32.0); Mean Corpuscular Volume 98.3 fL (80-94); Mean Platelet Vol. 10.2 fl (6.2-12.0); Monocyte# 1.12 X10^3/uL; Monocyte% 24.5 % (0-10); NRBC Flagged by Analyzer 0 % (0-5); Neutrophil # 2.19 X10^3/uL (2.7-7.7); Neutrophil % 47.7 % (47-70); Platelet Count 304 K/mm3 (150-450); RBC Distribution Width CV 14.7 % (11.6-14.6); RBC Distribution Width SD 53.3 fl (35.1-43.9); Red Blood Count 3.58 M/mm3 (4.6-6.2); White Blood Count 4.6 K/mm3 (4.4-11.0)
[2023-09-06 06:51] LABS: Anion Gap 7 (5-15); BUN 5 mg/dL (7-18); BUN/Creat Ratio 9.3 RATIO (10-20); Calcium,Total 8.9 mg/dL (8.5-10.1); Chloride 103 mmol/L (98-107); Creatinine, Serum 0.54 mg/dL (0.70-1.30); EST Glomerular Filtration Rate 163 mL/min (>60); Est Glom Filt Rate - Afr Amer 197 mL/min (>60); Estimated Creatinine Clearance 92.98 ml/min; Glucose 95 mg/dL (74-106); Sodium Level 138 mmol/L (136-145)
[2023-09-06 08:05] VITALS: BP 115/77; PULSE 98; RESP 14; TEMP 36.9; O2SAT 98
[2023-09-06] MEDS: Multivitamins,Therapeutic Tablet 1 TABLET PO (09:55)
[2023-09-06] MEDS: Folic Acid 1 MG Tablet PO (09:55)
[2023-09-06] MEDS: Menthol/Lanolin/Calamine/Znox 113 GM Tube 1 APPLIC TOPICAL (09:56)
[2023-09-06] MEDS: Senna/Docusate Sodium 1 Tablet PO (09:59)
[2023-09-06] MEDS: Thiamine Hydrochloride 100 MG Tablet PO (10:00)
[2023-09-06] MEDS: oxyCODONE 5 MG Tablet PO ×2 (10:17→18:20)
[2023-09-06] MEDS: Pneumococcal Vaccine 20 Valent 0.5 ML Syringe IM (10:38)
[2023-09-06] MEDS: Flu Vacc QS2023-24(65YR UP)/PF 240 MCG/0.7 ML Syringe IM (10:45)
[2023-09-06] MEDS: Tuberculin,Purif.prot.deriv. 50 TU/ML Vial 0.100000000000000006 ML ID (10:51)
[2023-09-06] MEDS: NYSTATIN 500,000 UNIT/5 ML UDC 500000 UNIT PO ×3 (11:13→21:06)
--- NOTE | 2023-09-06 12:06 | MDS.RN ---
Resident requested Porfirio (resident's cousin) be contacted to scheduled plan of care meeting for next week.
--- NOTE | 2023-09-06 14:36 | PCM.PN.DRR ---
TCU RX Drug Regimen Review Subjective/Objective Subjective/Objective: Subjective: 63 YOM admitted to TCU s/p hospitalization due to a fall which resulted in a t12 compression fracture, currently declining surgical intervention. Hospitalization also complicated by past medical history significant for alcoholism, hyponatremia secondary to alcoholism. Patient admitted to TCU 09/05/23 for strengthening and rehabilitation prior to discharge home where he resides alone. Objective: Allergies No Known Allergies Allergy (Verified 08/29/23 14:24) Current Medications Generic Name Dose Route Start Last Admin Trade Name Freq PRN Reason Stop Dose Admin Acetaminophen 1,000 mg 09/05/23 21:33 Acetaminophen 500 Mg Tablet PO Q6H PRN PRN Pain Score 1-3 Calamine/Phenol 1 applic 09/06/23 10:00 09/06/23 09:56 Menthol/Lanolin/Calamine/Znox 113 Gm Tube TOPICAL 1 applic BID ALMA ROSA Administration Protocol Doxepin HCl 10 mg 09/06/23 22:00 Doxepin Hydrochloride 10 Mg Capsule PO QHS ALMA ROSA Enoxaparin Sodium 40 mg 09/06/23 06:00 09/06/23 05:52 Enoxaparin 40 Mg/0.4 Ml Syringe SC 40 mg DAILY@0600 ALMA ROSA Administration Folic Acid 1 mg 09/06/23 08:00 09/06/23 09:55 Folic Acid 1 Mg Tablet PO 1 mg DAILYCM ALMA ROSA Administration Magnesium Citrate 300 ml 09/05/23 21:52 Magnesium Citrate 300 Ml PO DAILY PRN Constipation Multivitamins 1 tablet 09/06/23 08:00 09/06/23 09:55 Multivitamins,Therapeutic Tablet PO 1 tablet BREAKFAST ALMA ROSA Administration Nicotine 21 mg 09/06/23 10:00 09/06/23 09:58 Nicotine 21 Mg Patch TD 21 mg DAILY ALMA ROSA Administration Nutritional Formula (Lactose Free) 120 ml 09/06/23 07:45 09/06/23 14:13 Ensure Plus High Protein 120 Ml Liquid PO Not Given TIDCM ALMA ROSA Nystatin 500,000 unit 09/06/23 12:00 09/06/23 11:13 Nystatin 500,000 Unit/5 Ml Udc PO 09/16/23 12:01 500,000 unit 4X/DAY ALMA ROSA Administration Oxycodone HCl 5 mg 09/05/23 21:32 09/06/23 10:17 Oxycodone 5 Mg Tablet PO 5 mg Q4H PRN PRN Administration Pain Score 6-10 Senna/Docusate Sodium 1 tablet 09/05/23 22:00 09/06/23 09:59 Senna/Docusate Sodium 1 Tablet PO 1 tablet BID ALMA ROSA Administration Thiamine HCl 100 mg 09/06/23 10:00 09/06/23 10:00 Thiamine Hydrochloride 100 Mg Tablet PO 100 mg DAILY ALMA ROSA Administration Tramadol HCl 50 mg 09/05/23 21:33 Tramadol 50 Mg Tablet PO Q6H PRN PRN Pain Score 4-5 Tuberculin PPD 0.1 ml 09/13/23 10:00 Tuberculin,Purif.Prot.Deriv. 50 Tu/Ml Vial ID 09/13/23 10:01 X1 ONE Problem List (Updated 09/05/23 @ 21:[address] Elgin Honeycutt MD) Rhabdomyolysis (Acute) Hyponatremia (Acute) Fall (Acute) Debility (Acute) Alcohol abuse (Acute) T12 compression fracture (Acute) Vital Signs Temp Pulse Resp BP Pulse Ox O2 Del Method 98.4 F 98 14 115/77 98 Room Air 09/06/23 08:05 09/06/23 08:05 09/06/23 08:05 09/06/23 08:05 09/06/23 08:05 09/06/23 08:05 Oxygen Delivery Method Room Air Weight: 71.412 kg Body Mass Index (BMI) 19.5 Sodium 138 mmol/L (136-145) 09/06/23 05:40 Potassium 4.0 mmol/L (3.5-5.1) 09/06/23 05:40 Chloride 103 mmol/L (98-107) 09/06/23 05:40 Carbon Dioxide 28.0 mmol/L (21.0-32.0) 09/06/23 05:40 Anion Gap 7 (5-15) 09/06/23 05:40 BUN 5 mg/dL (7-18) L 09/06/23 05:40 Creatinine 0.54 mg/dL (0.70-1.30) L 09/06/23 05:40 Est GFR (MDRD) Af Amer 197 mL/min (>60) 09/06/23 05:40 Est GFR (MDRD) Non-Af 163 mL/min (>60) 09/06/23 05:40 BUN/Creatinine Ratio 9.3 RATIO (10-20) L 09/06/23 05:40 Glucose 95 mg/dL (74-106) 09/06/23 05:40 Assessment/Plan: 1. Pain: Tylenol 1000mg PO Q6h PRN Pain 1-3, Tramadol 50mg PO Q6h PRN Pain 4-5, oxycodone 5mg PO Q4h PRN Pain 6-10. Please continue to monitor for S/S increased/decreased pain, PRN medication usage, oversedation/constipation/respiratory depression with narcotic use. - The patient has used 1 dose of oxycodone since admission for pain rated 8/10, post medication pain rated 7/10. Please continue to monitor PRN usage. 2. Alcohol abuse: Folic acid 1mg PO Daily, Multivitamin 1 tab PO Daily, Thiamine 100mg PO Daily. Please continue to monitor for s/s persistent alcohol withdrawal, mental status changes. 3. DVT prophylaxis: Lovenox 40mg SC Daily. Please continue to monitor for S/S bleeding/bruising, H/H (Hgb 11.7, Hct 35.2% on 09/05), CrCl (93 mL/min on 09/05). 4. Nicotine abuse: Nicotine Patch 21mg Topically Daily. Please continue to monitor for vivid dreams, nightmares, skin irritation. Please also encourage smoking cessation techniques for lifelong abstinence of nicotine. 5. Thrush: Nystatin 50,000 unit/5mL PO 4x/day thru 09/15. Please continue to monitor for resolution of infection. 6. Skin Integrity: Calmoseptine topically BID. Please continue to monitor for s/s skin irritation, ulcer formation, skin redness. 7. Bowel: Senna/Docusate 1 tab PO BID, magnesium Citrate 300mL PO Daily PRN. Please continue to monitor for increased/decreased constipation and/or diarrhea. - The patient's last BM was today, 09/06/23. PRN medication does not appear to be needed at this time, continue to monitor. Assessment/Plan for indications treated with psychotropic medications: 1. Insomnia?? : Doxepin 10mg PO QHS. Please evaluate need for medication, indication for use is not listed in chart. Please also consider a GDR for medication should it be deemed to be clinically indicated, thank you. Medical chart and medication regimen reviewed. The following medication irregularities or issues were identified: 1. Insomnia?? : Doxepin 10mg PO QHS. Please evaluate need for medication, indication for use is not listed in chart. Please also consider a GDR for medication should it be deemed to be clinically indicated, thank you. Date Date of Note:: 09/06/23
[2023-09-06 16:00] VITALS: BP 123/74; PULSE 92; RESP 14; TEMP 36.7; O2SAT 97
[2023-09-06] MEDS: Gabapentin 100 MG Capsule PO (17:31)
[2023-09-06 19:43] VITALS: RESP 16
[2023-09-06] MEDS: Doxepin Hydrochloride 10 MG Capsule PO (21:06)
[2023-09-07] MEDS: oxyCODONE 5 MG Tablet PO ×3 (04:24→12:51)
[2023-09-07] MEDS: Acetaminophen 500 MG Tablet 1000 MG PO (04:25)
[2023-09-07] MEDS: NYSTATIN 500,000 UNIT/5 ML UDC 500000 UNIT PO ×4 (05:08→21:05)
[2023-09-07] MEDS: Enoxaparin 40 MG/0.4 ML Syringe SC (05:08)
[2023-09-07 07:53] VITALS: BP 112/73; PULSE 83; RESP 14; TEMP 36.6
[2023-09-07] MEDS: Gabapentin 100 MG Capsule PO ×2 (09:22→12:39)
[2023-09-07] MEDS: Folic Acid 1 MG Tablet PO (10:48)
[2023-09-07] MEDS: Multivitamins,Therapeutic Tablet 1 TABLET PO (10:48)
[2023-09-07] MEDS: Thiamine Hydrochloride 100 MG Tablet PO (10:49)
[2023-09-07] MEDS: Senna/Docusate Sodium 1 Tablet PO (10:49)
[2023-09-07] MEDS: Menthol/Lanolin/Calamine/Znox 113 GM Tube 1 APPLIC TOPICAL ×2 (10:49→21:06)
--- NOTE | 2023-09-07 15:22 | CASEMGMT ---
General Technician Met with patient at bedside to complete initial assessment. Sw introduced self to patient and explained role. Sw verified contacts. Patient confirmed that he is a DNRCC-A, with no intubation. Patient reports that he does not have advanced directives in place and does not want to complete them at this time. Pt educated to Medicare benefit. Patient's goal is to return home where he was living independently prior to hospitalization. Sw will continue to follow throughout admission and will assist with dc planning. Huyen Gatica, SHAFT REPAIRER, LANDS RESOURCE MANAGER
[2023-09-07] MEDS: traMADol 50 MG Tablet PO (15:27)
--- NOTE | 2023-09-07 15:43 | NS ---
Nursing states res is refusing ensure plus high protein and request ONS be discontinued - [facility] d[facility].
[2023-09-07 16:00] VITALS: BP 108/72; PULSE 94; RESP 18; TEMP 37.2; O2SAT 95
[2023-09-07] MEDS: Gabapentin 400 MG Capsule 800 MG PO (18:02)
[2023-09-07] MEDS: Doxepin Hydrochloride 10 MG Capsule PO (21:05)
[2023-09-08] MEDS: NYSTATIN 500,000 UNIT/5 ML UDC 500000 UNIT PO ×4 (04:57→22:31)
[2023-09-08] MEDS: Enoxaparin 40 MG/0.4 ML Syringe SC (04:57)
[2023-09-08 08:42] VITALS: BP 113/76; PULSE 81; RESP 16; TEMP 36.3; O2SAT 98
[2023-09-08] MEDS: Gabapentin 400 MG Capsule 800 MG PO ×3 (08:43→17:52)
[2023-09-08] MEDS: Thiamine Hydrochloride 100 MG Tablet PO (08:44)
[2023-09-08] MEDS: Folic Acid 1 MG Tablet PO (08:44)
[2023-09-08] MEDS: Menthol/Lanolin/Calamine/Znox 113 GM Tube 1 APPLIC TOPICAL ×2 (08:44→22:31)
[2023-09-08] MEDS: Multivitamins,Therapeutic Tablet 1 TABLET PO (08:44)
[2023-09-08] MEDS: Senna/Docusate Sodium 1 Tablet PO (17:53)
[2023-09-08 22:20] VITALS: PULSE 78; RESP 14; O2SAT 97
[2023-09-08] MEDS: traMADol 50 MG Tablet PO (22:30)
[2023-09-08] MEDS: Doxepin Hydrochloride 10 MG Capsule PO (22:31)
[2023-09-09] MEDS: Enoxaparin 40 MG/0.4 ML Syringe SC (05:35)
[2023-09-09] MEDS: NYSTATIN 500,000 UNIT/5 ML UDC 500000 UNIT PO ×4 (05:36→20:44)
[2023-09-09] MEDS: Gabapentin 400 MG Capsule 800 MG PO ×3 (09:20→17:47)
[2023-09-09] MEDS: Folic Acid 1 MG Tablet PO (09:20)
[2023-09-09] MEDS: Multivitamins,Therapeutic Tablet 1 TABLET PO (09:21)
[2023-09-09] MEDS: Menthol/Lanolin/Calamine/Znox 113 GM Tube 1 APPLIC TOPICAL ×2 (09:21→20:45)
[2023-09-09] MEDS: Thiamine Hydrochloride 100 MG Tablet PO (09:22)
[2023-09-09 09:24] VITALS: BP 138/77; PULSE 74; RESP 16; TEMP 36.7; O2SAT 98
[2023-09-09] MEDS: oxyCODONE 5 MG Tablet PO ×2 (10:27→20:55)
[2023-09-09] MEDS: Acetaminophen 500 MG Tablet 1000 MG PO (12:34)
--- NOTE | 2023-09-09 14:57 | CHAPLAIN ---
Type of Pastoral Visit ___ Initial Visit _x__ Follow-up Visit ___ On-call Visit ___ General Patient Visit ___ Spiritual Assessment ___ Family Conference ___ Bereavement ___ Rapid Response ___ Code Blue ___ Other (describe below) Pastoral Care Referral From _x__ Patient ___ Family ___ Nurse ___ Physician ___ Animal Stunner ___ Paper Bag Inspector ___ Other (describe below) Sacrament/Intervention _x__ Active listening ___ Anointing ___ Mormon ___ Bereavement ___ Communion ___ Neda exploration ___ _x__ Life review _x__ Prayer ___ Reconciliation ___ Sacrament of Sick ___ Supportive presence ___ Wedding ___ Other (describe below) Pastoral Comments patient remembers this burglar alarm superintendent from a visit in [place] previously; pt is welcoming and is expressive of his improvements and good care/treatment in the TCU; pt is hopeful to be able to go home, possibly next week; pt has more energy and is more focused today that previous visit; pt acknowledges God in this situation and how he is improved; pt welcomes the company and the prayer too
[2023-09-09] MEDS: Doxepin Hydrochloride 10 MG Capsule PO (20:44)
[2023-09-09 21:00] VITALS: PULSE 65; RESP 16; O2SAT 96
[2023-09-10] MEDS: oxyCODONE 5 MG Tablet PO ×3 (02:41→20:47)
[2023-09-10] MEDS: NYSTATIN 500,000 UNIT/5 ML UDC 500000 UNIT PO ×4 (05:49→20:47)
[2023-09-10] MEDS: Enoxaparin 40 MG/0.4 ML Syringe SC (05:49)
[2023-09-10] MEDS: Folic Acid 1 MG Tablet PO (08:28)
[2023-09-10] MEDS: Multivitamins,Therapeutic Tablet 1 TABLET PO (08:28)
[2023-09-10] MEDS: Thiamine Hydrochloride 100 MG Tablet PO (08:28)
[2023-09-10] MEDS: Gabapentin 400 MG Capsule 800 MG PO ×3 (08:28→17:58)
[2023-09-10] MEDS: Menthol/Lanolin/Calamine/Znox 113 GM Tube 1 APPLIC TOPICAL ×2 (08:29→20:50)
[2023-09-10 15:43] VITALS: BP 109/66; PULSE 87; RESP 16; TEMP 36.9; O2SAT 97
[2023-09-10] MEDS: Doxepin Hydrochloride 10 MG Capsule PO (20:48)
[2023-09-11] MEDS: Enoxaparin 40 MG/0.4 ML Syringe SC (05:35)
[2023-09-11] MEDS: NYSTATIN 500,000 UNIT/5 ML UDC 500000 UNIT PO ×4 (05:35→22:24)
[2023-09-11] MEDS: Gabapentin 400 MG Capsule 800 MG PO ×3 (08:21→17:18)
[2023-09-11] MEDS: Folic Acid 1 MG Tablet PO (08:21)
[2023-09-11] MEDS: Multivitamins,Therapeutic Tablet 1 TABLET PO (08:21)
[2023-09-11] MEDS: Thiamine Hydrochloride 100 MG Tablet PO (08:21)
[2023-09-11] MEDS: Menthol/Lanolin/Calamine/Znox 113 GM Tube 1 APPLIC TOPICAL ×2 (08:24→22:25)
[2023-09-11] MEDS: oxyCODONE 5 MG Tablet PO ×2 (11:00→22:24)
--- NOTE | 2023-09-11 13:55 | NURSING ---
Pt refusing Sanjayna Dr Honeycutt updated N.O. to change to PRN. Order read back.
[2023-09-11 15:29] VITALS: BP 117/77; PULSE 90; RESP 16; TEMP 36.8; O2SAT 98
[2023-09-11] MEDS: Doxepin Hydrochloride 10 MG Capsule PO (22:24)
[2023-09-12] MEDS: NYSTATIN 500,000 UNIT/5 ML UDC 500000 UNIT PO ×4 (05:37→20:04)
[2023-09-12] MEDS: Enoxaparin 40 MG/0.4 ML Syringe SC (05:37)
[2023-09-12 08:13] VITALS: BP 117/79; PULSE 90; RESP 16; TEMP 36.9; O2SAT 96
[2023-09-12] MEDS: Gabapentin 400 MG Capsule 800 MG PO ×3 (08:14→17:15)
[2023-09-12] MEDS: Folic Acid 1 MG Tablet PO (08:16)
[2023-09-12] MEDS: Multivitamins,Therapeutic Tablet 1 TABLET PO (08:16)
[2023-09-12] MEDS: Menthol/Lanolin/Calamine/Znox 113 GM Tube 1 APPLIC TOPICAL ×2 (08:16→20:07)
[2023-09-12] MEDS: Thiamine Hydrochloride 100 MG Tablet PO (08:16)
[2023-09-12 08:22] VITALS: PULSE 90; RESP 16; O2SAT 96
[2023-09-12] MEDS: oxyCODONE 5 MG Tablet PO ×3 (10:24→20:04)
--- NOTE | 2023-09-12 10:28 | NURSING ---
Corporate Wellness Coordinator Note; MDS for 09/12/2023 Complete
--- NOTE | 2023-09-12 19:17 | CASEMGMT ---
Social Work BIMS () and PHQ-2 () completed for MDS assessment. SW discussed DC plans with pt. Pt is adlib in facility with no device. There are no medical concerns. Pt is requesting to DC. IDT agreeable. Pt will have cousin transport and he has availability 09/14. SW offered skilled HHC or OP therapy. Pt denied both and will follow [facility]. No DME needs. Discussed pt's home conditions and pt denies hoarder-like home, but does report to needing a deep cleaning , not cluttered. Pt states he is going to hire an [employer] gal to help with cleaning. Pt denied any other issues or concerns with home environment. Plan: DC home alone 09/14 with no needs. DELMY BarrW
[2023-09-12] MEDS: Doxepin Hydrochloride 10 MG Capsule PO (20:04)
[2023-09-13] MEDS: Enoxaparin 40 MG/0.4 ML Syringe SC (05:43)
[2023-09-13] MEDS: NYSTATIN 500,000 UNIT/5 ML UDC 500000 UNIT PO ×4 (05:43→20:26)
[2023-09-13] MEDS: oxyCODONE 5 MG Tablet PO ×2 (05:45→09:52)
[2023-09-13 05:46] LABS: Absolute Lymphocyte Count 1.94 X10^3/uL (0.83-4.51); Absolute Neutrophil Count 3.7 X10^3/uL (2.0-7.7); Basophil# 0.15 X10^3/uL; Basophil% 2.2 % (0-1); Eosinophil# 0.14 X10^3/uL; Eosinophils% 2.1 % (0-5); Hematocrit 33.1 % (40-54); Hemoglobin 10.7 g/dL (13.0-16.5); Lymphocyte # 1.94 X10^3/ul (0.83-4.51); Lymphocyte % 28.4 % (19-41); Mean Corp Hgb Conc 32.3 g/dL (32-36); Mean Corpuscular Hgb 32.4 pg (27.0-32.0); Mean Corpuscular Volume 100.3 fL (80-94); Mean Platelet Vol. 9.4 fl (6.2-12.0); Monocyte# 0.79 X10^3/uL; Monocyte% 11.6 % (0-10); NRBC Flagged by Analyzer 0 % (0-5); Neutrophil # 3.72 X10^3/uL (2.7-7.7); Neutrophil % 54.5 % (47-70); Platelet Count 489 K/mm3 (150-450); RBC Distribution Width SD 51.8 fl (35.1-43.9); White Blood Count 6.8 K/mm3 (4.4-11.0)
[2023-09-13 06:03] VITALS: BMI 20.2
[2023-09-13 06:41] LABS: Anion Gap 3 (5-15); BUN 5 mg/dL (7-18); BUN/Creat Ratio 8.2 RATIO (10-20); Calcium,Total 8.6 mg/dL (8.5-10.1); Chloride 108 mmol/L (98-107); Creatinine, Serum 0.61 mg/dL (0.70-1.30); EST Glomerular Filtration Rate 142 mL/min (>60); Est Glom Filt Rate - Afr Amer 171 mL/min (>60); Estimated Creatinine Clearance 92.98 ml/min; Glucose 92 mg/dL (74-106); Potassium 4.1 mmol/L (3.5-5.1); Sodium Level 139 mmol/L (136-145)
[2023-09-13 07:41] VITALS: RESP 16
--- NOTE | 2023-09-13 07:50 | PCM.DC.SUM ---
Providers Date of Admission: 09/05/23 Primary Care Physician: No Primary Care Phys Reason For Visit: DEBILITY WITH MULTIPLE FALLS Diagnosis Discharge Diagnosis (1) Debility: Status: Acute Code(s): R53.81 - Other malaise (2) Fall: Status: Acute Code(s): W19.XXXA - Unspecified fall, initial encounter (3) T12 compression fracture: Status: Inactive Code(s): S22.080A - Wedge compression fracture of T11-T12 vertebra, initial encounter for closed fracture (4) Hyponatremia: Status: Acute Code(s): E87.1 - Hypo-osmolality and hyponatremia (5) Rhabdomyolysis: Status: Acute Code(s): M62.82 - Rhabdomyolysis (6) Alcohol abuse: Status: Inactive Code(s): F10.10 - Alcohol abuse, uncomplicated Plan 63 year old female with below past medical history hospitalized for fall, T12 compression fracture, rhabdomyolysis, alcohol withdrawal, hyponatremia, admitted to TCU debility, here for rehabilitation, strengthening, prior to discharge home alone. Debility - PT/OT. Pain - Tylenol 1000mg q6 prn pain (1-3), Tramadol 50mg q6 prn pain (4-5), Oxycodone 5mg q4 prn pain (6-10). Bowel - senna/colace 1 tablet bid, Magnesium citrate 300ml daily prn. Adult immunization - Administer pneumonia vaccine, covid vaccine, flu vaccine as appropriate. DVT prophylaxis - Lovenox 40mg sc daily. Nutrition - Ensure Plus 120ml tidcm. Alcohol Abuse - Folic acid 1mg daily, Thiamine 100mg daily, MVI daily. Tobacco Abuse - Nicotine 21mg td daily. T12 compression fracture - Consider kyphoplasty. Medications at Discharge Home Medications folic acid 1 mg tablet 1 mg PO DAILYCM 30 days #30 tabs 09/13/23 gabapentin 400 mg capsule 800 mg (2 x 400 mg) PO TIDCM 30 days #180 caps 09/13/23 nicotine 21 mg/24 hr daily transdermal patch 21 mg transdermal DAILY 30 days #30 ea 09/13/23 thiamine HCl (vitamin B1) 100 mg tablet (Vitamin B-1) 100 mg PO DAILY 30 days #30 tabs 09/13/23 Hospital Course Operations None Procedures None Summary of Care Provided Minutes Spent on Discharge: 35 Hospital Course: 63 year old female with below past medical history hospitalized for fall, T12 compression fracture, rhabdomyolysis, alcohol withdrawal, hyponatremia, admitted to TCU debility, here for rehabilitation, strengthening, prior to discharge home alone. Discharge home alone 09/15/2023 with no needs. Physical Exam Const alert General Appearance: cooperative HEENT normocephalic Eyes PERRL and EOMs intact bilaterally Neck supple, no JVD and no carotid bruits Resp normal respiratory effort, normal air movement and clear to auscultation bilaterally Cardio regular rate and regular rhythm GI normal to inspection, nondistended, normoactive bowel sounds, non-tender and non-distended Extremity normal capillary refill General Extremity: Negative for edema Skin no rashes or lesions noted General Skin Exam: no breakdown Psych affect normal Appearance: appropriate Medical Records Data Medical Nutrition Assessment Dietitian: Malnutrition Criteria Met Start: 09/06/23 15:22 Freq: Status: Active Protocol: Document 09/06/23 15:22 (Rec: 09/06/23 15:22 [id number]) Nutrition Malnutrition Evidence of Malnutrition Exists Yes Malnutrition (severe): Chronic Evidenced By Suboptimal Energy Intake ( Severe),Weight Loss (Severe), Physical Changes (Severe) Clinical Problem Chronic Disease or Condition Related Malnutrition Etiology chronic, severe malnutrition related to inadequate energy intake w/ history of alcohol abuse Signs/Symptoms as evidenced by unintentional ~19% wt loss < 1 year, estimated PO intake meeting < 75% of estimated energy needs > 3 months, severe muscle wasting/fat loss per physical exam in orbital, clavicle, acromion, and temporal areas Status Active Problem Recommendation Dietitian Recommendations/Changes continue regular diet- texture /consistency per SENIOR SOFTWARE QA ENGINEER; magic cup milkshake BID for additional nutrition if consumed. Weight / BMI Weight Weight: 71.412 kg Body Mass Index (BMI) 19.1 ABG / Lab / Microbiology Data 09/13/23 05:20 09/13/23 05:20 Laboratory: Laboratory Results - last 24 hr 09/13/23 05:20: WBC 6.8, RBC 3.30 L, Hgb 10.7 L, Hct 33.1 L, MCV 100.3 H, MCH 32.4 H, MCHC 32.3, RDW Std Deviation 51.8 H, RDW Coeff of Yousuf 14.0, Plt Count 489 H, MPV 9.4, Immature Gran % (Auto) 1.200 H, Neut % (Auto) 54.5, Lymph % (Auto) 28.4, [place] % (Auto) 11.6 H, Eos % (Auto) 2.1, Baso % (Auto) 2.2 H, Absolute Neuts (auto) 3.7, Absolute Lymphs (auto) 1.94, Nucleated RBC % 0, Sodium 139, Potassium 4.1, Chloride 108 H, Carbon Dioxide 28.0, Anion Gap 3 L, BUN 5 L, Creatinine 0.61 L, Estim Creat Clear Calc 92.98, Est GFR (MDRD) Af Amer 171, Est GFR (MDRD) Non-Af 142, BUN/Creatinine Ratio 8.2 L, Glucose 92, Calcium 8.6 D/C Instructions Discharge Diet: No restrictions Discharge Activity: Return to Normal Activity and May Shower Weight Bearing Status: Weight bearing as tolerated Call your doctor if you observe: Fever of 101 or Higher, Inability to urinate, Inability to have a bowel movement, Shortness of breath, Dizziness, Fainting spells, Swelling in the ankles, Chest pain and Uncontrolled pain Additional Instructions: Discharge home alone 09/15/2023 with no needs. Please Follow Up With: Elgin Honeycutt Chi, MD When: 09/15/2023. Meaningful Use Info Meaningful Use Diagnoses (Choose all that apply): None applicable Discharge Plan Admission Admit Date/Time: 09/05/23 18:30 Primary Reason for Your Visit: Debility. Attending Provider: Elgin Honeycutt Chi Primary Care Provider: Care Physician,No Primary Instructions Additional Instructions / Restrictions: Discharge home alone 09/15/2023 with no needs. Discharge Orders/Prescriptions Prescriptions: New gabapentin 400 mg Capsule 800 mg PO TIDCM 30 Days Qty: 180 0RF thiamine HCl (vitamin B1) [Vitamin B-1] 100 mg Tablet 100 mg PO DAILY 30 Days Qty: 30 0RF nicotine 21 mg/24 hr Patch 24 Hour 21 mg transdermal DAILY 30 Days Qty: 30 0RF folic acid 1 mg Tablet 1 mg PO DAILYCM 30 Days Qty: 30 0RF Discontinued multivitamin Tablet 1 tab PO BREAKFAST Qty: 0 0RF sennosides [senna] 8.6 mg Tablet 8.6 mg PO QHS PRN (Reason: Constipation) Qty: 0 0RF nicotine 21 mg/24 hr Patch 24 Hour 21 mg transdermal DAILY Qty: 0 0RF Ensure Plus High Protein 0.08 gram-1.5 kcal/mL Liquid 120 ml PO TIDCM Qty: 0 0RF thiamine HCl (vitamin B1) 100 mg tablet 100 mg PO DAILY Qty: 30 3RF folic acid 1 mg tablet 1 mg PO DAILY Qty: 30 3RF acetaminophen 500 mg Tablet 500 mg PO Q4H PRN PRN (Reason: Pain 1-10 or Temp > 100.4 F) Qty: 0 0RF Referrals / Follow Up: Elgin Honeycutt Chi, MD [Med Staff - Active Staff] - 09/15/23 (Schedule appointment on 09/15/2023.) Disposition Disposition (needs filled in before D/C Order can be placed): Home, Self Care
[2023-09-13] MEDS: Gabapentin 400 MG Capsule 800 MG PO ×3 (08:38→17:09)
[2023-09-13] MEDS: Senna/Docusate Sodium 1 Tablet PO (08:38)
[2023-09-13] MEDS: Folic Acid 1 MG Tablet PO (08:38)
[2023-09-13] MEDS: Menthol/Lanolin/Calamine/Znox 113 GM Tube 1 APPLIC TOPICAL ×2 (08:39→20:27)
[2023-09-13] MEDS: Thiamine Hydrochloride 100 MG Tablet PO (08:39)
[2023-09-13] MEDS: Multivitamins,Therapeutic Tablet 1 TABLET PO (08:39)
[2023-09-13 10:21] VITALS: BP 111/64; PULSE 91; RESP 16; TEMP 36.3; O2SAT 97
[2023-09-13] MEDS: Tuberculin,Purif.prot.deriv. 50 TU/ML Vial 0.100000000000000006 ML ID (14:35)
[2023-09-13] MEDS: Doxepin Hydrochloride 10 MG Capsule PO (20:26)
[2023-09-14] MEDS: NYSTATIN 500,000 UNIT/5 ML UDC 500000 UNIT PO ×4 (05:25→21:07)
[2023-09-14] MEDS: Menthol/Lanolin/Calamine/Znox 113 GM Tube 1 APPLIC TOPICAL ×2 (08:50→21:10)
[2023-09-14] MEDS: Folic Acid 1 MG Tablet PO (08:50)
[2023-09-14] MEDS: Multivitamins,Therapeutic Tablet 1 TABLET PO (08:50)
[2023-09-14] MEDS: Gabapentin 400 MG Capsule 800 MG PO ×3 (08:50→17:42)
[2023-09-14] MEDS: Thiamine Hydrochloride 100 MG Tablet PO (08:50)
[2023-09-14 09:21] VITALS: BP 128/71; PULSE 76; RESP 16; TEMP 36.4; O2SAT 98
[2023-09-14] MEDS: oxyCODONE 5 MG Tablet PO ×2 (10:38→19:48)
[2023-09-14] MEDS: Acetaminophen 500 MG Tablet 1000 MG PO (10:40)
--- NOTE | 2023-09-14 11:54 | CASEMGMT ---
Social Work Collaboration with MANAGER ANDROID on presenting social work information for care plan meeting. Information included confirmation of DC home 09/14 with no needs. Pt confirmed. SW had MANAGER ANDROID provide resources for counseling services and [employer] card with alcohol resources as well. This worker's business card was provided to pt if further questions arise. Friend to transport pt home after 1600. Jeanne Olvera, DELMY TUNNELING MACHINE OPERATOR
[2023-09-14 19:37] VITALS: PULSE 88; RESP 16; O2SAT 97
[2023-09-14] MEDS: Doxepin Hydrochloride 10 MG Capsule PO (21:07)
[2023-09-15] MEDS: NYSTATIN 500,000 UNIT/5 ML UDC 500000 UNIT PO ×2 (05:48→12:11)
[2023-09-15 06:05] VITALS: PULSE 76; RESP 16; O2SAT 96
[2023-09-15] MEDS: Thiamine Hydrochloride 100 MG Tablet PO (07:50)
[2023-09-15] MEDS: Gabapentin 400 MG Capsule 800 MG PO ×3 (07:50→17:03)
[2023-09-15] MEDS: Multivitamins,Therapeutic Tablet 1 TABLET PO (07:51)
[2023-09-15] MEDS: Folic Acid 1 MG Tablet PO (07:51)
[2023-09-15] MEDS: Menthol/Lanolin/Calamine/Znox 113 GM Tube 1 APPLIC TOPICAL (07:51)
[2023-09-15 07:54] VITALS: BP 115/75; PULSE 74; RESP 16; TEMP 36.4; O2SAT 98
[2023-09-15] MEDS: Acetaminophen 500 MG Tablet 1000 MG PO (09:42)
[2023-09-15] MEDS: oxyCODONE 5 MG Tablet PO ×2 (09:42→13:49)
--- NOTE | 2023-09-15 17:17 | NURSING ---
pt changed appt with DR Honeycutt from tomorrow to 09/26 @ [id number]
--- NOTE | 2023-09-16 11:39 | MDS.RN ---
Information for the mds was obtained from review of the clinical record, interview of resident, staff, and direct observation of resident's care.
== END 2023-09-15 18:30 | disposition home or self-care (01) | DRG 560 ==
PROVIDERS: Admitting Provider Family Medicine Geriatric Medicine; Visit Provider Family Medicine Geriatric Medicine
DX: S22.080D Wedge compression fracture of T11-T12 vertebra, subsequent encounter for fracture with routine healing (principal); M62.82 Rhabdomyolysis; E87.1 Hypo-osmolality and hyponatremia; F10.288 Alcohol dependence with other alcohol-induced disorder; G62.1 Alcoholic polyneuropathy; B37.9 Candidiasis, unspecified; F17.290 Nicotine dependence, other tobacco product, uncomplicated; G44.009 Cluster headache syndrome, unspecified, not intractable; W19.XXXD Unspecified fall, subsequent encounter; G47.00 Insomnia, unspecified; Z23 Encounter for immunization
CPT/HCPCS: 36415; 80048; 85025; 90677; 92526; 92610; 97110; 97116; 97162; 97166; 97530; 97535; 97802; G0008; G0009; 90662

== ENCOUNTER → 2023-09-20 | Outpatient (CLI) | payer MEDICARE, SELFPAY ==
[2023-09-20 17:18] LABS: Absolute Lymphocyte Count 1.64 X10^3/uL (0.83-4.51); Absolute Neutrophil Count 3.7 X10^3/uL (2.0-7.7); Basophil# 0.16 X10^3/uL; Basophil% 2.5 % (0-1); Eosinophils% 1.5 % (0-5); Hematocrit 35.7 % (40-54); Hemoglobin 11.7 g/dL (13.0-16.5); Lymphocyte # 1.64 X10^3/ul (0.83-4.51); Lymphocyte % 25.4 % (19-41); Mean Corp Hgb Conc 32.8 g/dL (32-36); Mean Corpuscular Hgb 31.8 pg (27.0-32.0); Mean Platelet Vol. 9.8 fl (6.2-12.0); Monocyte# 0.81 X10^3/uL; Monocyte% 12.5 % (0-10); NRBC Flagged by Analyzer 0 % (0-5); Neutrophil # 3.69 X10^3/uL (2.7-7.7); Neutrophil % 57.2 % (47-70); Platelet Count 467 K/mm3 (150-450); RBC Distribution Width CV 13.8 % (11.6-14.6); RBC Distribution Width SD 49.2 fl (35.1-43.9); Red Blood Count 3.68 M/mm3 (4.6-6.2); White Blood Count 6.5 K/mm3 (4.4-11.0)
[2023-09-20 17:37] LABS: ALB/GLOB Ratio 0.8 RATIO (0.9-2.4); AST(SGOT) 31 U/L (15-37); Alanine Aminotransfer ALT/SGPT 41 U/L (16-61); Albumin, Serum 3.3 g/dL (3.2-5.0); Alkaline Phosphatase 130 U/L (45-117); Anion Gap 8 (5-15); BUN 2 mg/dL (7-18); BUN/Creat Ratio 3.2 RATIO (10-20); Chloride 96 mmol/L (98-107); Cholesterol 275 mg/dL (200); Creatinine, Serum 0.62 mg/dL (0.70-1.30); EST Glomerular Filtration Rate 138 mL/min (>60); Est Glom Filt Rate - Afr Amer 167 mL/min (>60); Globulin 4.1 g/dL (2.2-4.2); Glucose 88 mg/dL (74-106); High Density Lipoprotein 63 mg/dL; PSA,Total - Annual Screen 0.65 ng/mL (0.00-4.00); Potassium 4.5 mmol/L (3.5-5.1); Protein, Total 7.4 g/dL (6.4-8.2); Sodium Level 129 mmol/L (136-145); Thyroid Stim Hormone (TSH) 7.25 uIU/mL (0.358-3.74); Triglycerides 142 mg/dL; Very Low Density Lipoprotein 28 mg/dL (5-40)
[2023-09-20 18:07] LABS: Hepatitis C Antibody Non-Reactive (Nonreactive)
== END | disposition home or self-care (01) ==
LOC: POLAB3 16:32
PROVIDERS: PCP Family Medicine Geriatric Medicine; Visit Provider Family Medicine Geriatric Medicine
DX: Z13.89 Encounter for screening for other disorder (principal); E78.5 Hyperlipidemia, unspecified; Z12.5 Encounter for screening for malignant neoplasm of prostate
CPT/HCPCS: 36415; 80053; 80061; 84153; 84443; 85025; 86803; G0103

== ENCOUNTER → 2023-09-23 | Outpatient (CLI) | payer MEDICARE, SELFPAY ==
[2023-09-23 12:47] LABS: Urine Sodium 44 mmol/L (Not Establ.)
[2023-09-23 13:03] LABS: Anion Gap 5 (5-15); BUN 6 mg/dL (7-18); BUN/Creat Ratio 8.7 RATIO (10-20); Chloride 109 mmol/L (98-107); Creatinine, Serum 0.69 mg/dL (0.70-1.30); EST Glomerular Filtration Rate 122 mL/min (>60); Est Glom Filt Rate - Afr Amer 147 mL/min (>60); Glucose 97 mg/dL (74-106); Sodium Level 141 mmol/L (136-145)
[2023-09-23 14:02] LABS: Osmolality, Serum 293 mOsm/KG (280-301)
[2023-09-23 14:03] LABS: Osmolality, Urine 144 mOsm/KG
== END | disposition home or self-care (01) ==
LOC: POLAB3 12:07
PROVIDERS: PCP Family Medicine Geriatric Medicine; Visit Provider Family Medicine Geriatric Medicine
DX: E03.9 Hypothyroidism, unspecified (principal)
CPT/HCPCS: 36415; 80048; 83930; 83935; 84300

== ENCOUNTER → 2023-10-08 | Outpatient (CLI) | payer MEDICARE, SELFPAY ==
--- NOTE | 2023-10-08 08:53 | CT_ITS ---
STUDY: LOW DOSE CT LUNG CANCER SCREENING REASON FOR EXAM: Male, 63 years old. TOBACCO ABUSE. Patient smoked 1 pack per day for 49 years. COPD. History of breast cancer with bilateral mastectomies. RADIATION DOSAGE (If Supplied By Facility): CTDIvol = ( 2.01 ) mGy, DLP = ( 78.76 ) mGycm TECHNIQUE: No contrast was administered. Low dose technique was utilized (average mAS-38 and kVp 120). 1.25 mm axial source images with a slice interval of 1.25-mm were reconstructed in lung windows. 2.5 mm axial source images with a slice interval of 2.5-mm were reconstructed in lung windows. 5.0 mm axial source images with a slice interval of 5.0-mm were reconstructed in soft tissue windows. COMPARISON: Comparison is made with prior study of July 27, 2021. NODULES: No suspicious nodules seen. The previously seen 2.4 cm x 2.5 cm pleural-based nodular density in the posterior medial aspect of the right lower lobe is not seen at this time. Emphysema: Hyperinflation. Emphysematous changes with bullous formation worse in the upper lobes and more pronounced in the right upper lobe. Interstitial scarring is seen at both lung bases. The rest been improvement as compared to prior study. Endobronchial lesion: None Aorta: Atherosclerotic plaque formation. CORONARY ARTERIES: Coronary artery calcification is seen. Heart: Unremarkable Pulmonary artery: Unremarkable Mediastinal nodes: Small benign-appearing mediastinal lymph nodes. Other chest and abdominal findings: CT/Low Dose CT Lung Screening IMPRESSION: Lung-RADS category 2 - Continue annual screening with LDCT in 12 months. IMPORTANT NOTES FOR USE: ACR Lung-RADS Version 1.1 Assessment Categories Release Date: 2018 Category: Coded 0-4 bases on nodule(s) with highest degree of suspicion. Negative screen is defined as categories 1 and 2; a positive screen is defined as categories 3 and 4. Category 3 and 4A nodules that are unchanged on interval CT should be coded as category 2, and individuals returned to screening in 12 months. Category 4X: Category 3 or 4 nodules with additional imaging findings that increase the suspicion of lung cancer, such as spiculation, GGN that doubles in size in 1 year, enlarged lymph notes, etc. Category Modifiers: S (significant finding unrelated to lung cancer) Electronically Signed: Cortes Valverde MD at 9:59 EDT ,
== END | disposition home or self-care (01) ==
LOC: CT 08:51
PROVIDERS: PCP Family Medicine Geriatric Medicine; Referring Provider Family Medicine Geriatric Medicine; Visit Provider Family Medicine Geriatric Medicine
DX: F17.210 Nicotine dependence, cigarettes, uncomplicated (principal); J44.9 Chronic obstructive pulmonary disease, unspecified; I25.10 Atherosclerotic heart disease of native coronary artery without angina pectoris; Z85.3 Personal history of malignant neoplasm of breast; Z90.13 Acquired absence of bilateral breasts and nipples
CPT/HCPCS: 71271

== ENCOUNTER → 2023-10-11 | Outpatient (CLI) | payer MEDICARE, SELFPAY ==
--- NOTE | 2023-10-11 08:58 | BD_ITS ---
STUDY: DUAL ENERGY X-RAY ABSORPTIOMETRY / DXA REASON FOR EXAM: Male, 63 years old. Z85.3 TECHNIQUE: Bone Mineral Density (BMD) measurements of lumbar spine and bilateral hips were obtained. COMPARISON: None. FINDINGS: Lumbar Spine (L1-L4): g/cm2 (0.770) / T-score (-2.9) / Z-score (-2.1) Findings are suggestive of osteoporosis with a high fracture risk. Left Femur Total: g/cm2 (0.749) / T-score (-1.9) / Z-score (-1.4) Left Femoral Neck: g/cm2 (0.598) / T-score (-2.4) / Z-score (-1.4) Right Femur Total: g/cm2 (0.727) / T-score (-2.0) / Z-score (-1.5) Right Femoral Neck: g/cm2 (0.598) / T-score (-2.4) / Z-score (-1.4) BD/Dexa Bone Density Study IMPRESSION: The patient is considered osteoporotic as outlined below according to World Hema Organization (WHO) criteria with a high fracture risk. Reference Information: The T-score is the number of standard deviations above or below the standard which is normal for young adults at their peak bone mineral density. The World Health Organization (WHO) interprets the T-scores as follows: Above -1 Normal bone density Between -1 and -2.5 Osteopenia Equal to / or below -2.5 Osteoporosis As a practical clinical guideline, osteopenia may be graded as follows: Mild -1 through -1.5 Moderate -1.6 through -2.0 Severe -2.1 through -2.4 The Z-score is the number of standard deviations above or below age-matched controls. A Z-score of less than -1.5 would be considered abnormal. References: 1. NIH Osteoporosis and Related Bone Diseases www osteo.org 2. International Society for Clinical Densitometry www iscd.org 3. National Osteoporosis Foundation www nof.org Electronically Signed: Cortes Valverde MD at 14:57 EDT ,
== END | disposition home or self-care (01) ==
LOC: OPBD 08:53
PROVIDERS: PCP Family Medicine Geriatric Medicine; Referring Provider Family Medicine Geriatric Medicine; Visit Provider Family Medicine Geriatric Medicine
DX: I25.10 Atherosclerotic heart disease of native coronary artery without angina pectoris (principal); S22.080A Wedge compression fracture of T11-T12 vertebra, initial encounter for closed fracture; Z85.3 Personal history of malignant neoplasm of breast; Z72.0 Tobacco use; X58.XXXA Exposure to other specified factors, initial encounter
CPT/HCPCS: 77080

== ENCOUNTER → 2023-10-24 | Outpatient (CLI) | payer MEDICARE, SELFPAY ==
[2023-10-24 10:13] LABS: Hemoglobin 14.7 g/dL (13.0-16.5); Mean Corp Hgb Conc 31.3 g/dL (32-36); Mean Corpuscular Hgb 33.3 pg (27.0-32.0); Mean Corpuscular Volume 106.3 fL (80-94); Mean Platelet Vol. 10.7 fl (6.2-12.0); Platelet Count 325 K/mm3 (150-450); RBC Distribution Width CV 13.2 % (11.6-14.6); RBC Distribution Width SD 52.3 fl (35.1-43.9); Red Blood Count 4.42 M/mm3 (4.6-6.2); White Blood Count 8.2 K/mm3 (4.4-11.0)
[2023-10-24 10:29] LABS: Prothrombin Time (Protime)PT. 13.2 SECONDS (11.7-14.9)
[2023-10-24 10:30] LABS: Partial Thromboplast Time 29.5 Seconds (24.1-36.2)
== END | disposition home or self-care (01) ==
LOC: LAB 09:15
PROVIDERS: PCP Family Medicine Geriatric Medicine; Referring Provider Anesthesiology; Visit Provider Anesthesiology
DX: Z01.818 Encounter for other preprocedural examination (principal)
CPT/HCPCS: 36415; 85027; 85610; 85730

== ENCOUNTER → 2023-11-01 | Outpatient (CLI) | payer MEDICARE, SELFPAY | END | disposition home or self-care (01) | LOC: POLAB3 13:15 | PROVIDERS: PCP Family Medicine Geriatric Medicine; Visit Provider Family Medicine Geriatric Medicine | DX: E03.9 Hypothyroidism, unspecified (principal) | CPT/HCPCS: 36415; 84443 ==

== ENCOUNTER 2023-12-23 09:30 | Outpatient (RCR) | payer MEDICARE, SELFPAY ==
--- NOTE | 2023-12-08 10:28 | HP.PTEVAL_ITS ---
Patient's Visit Information Visit Information Visit Information: JULI DAVIDSON is a 63 year old M referred to Physical Therapy by Dr. Quirino Perry MD with a diagnosis of THORACIC SPONDYLOSIS ,LUMBAR RADICULOPATHY. Date of Evaluation: 12/08/23 Physical Therapist: Rolan Felix, PT, Cert MDT, OCS Visit Plan Frequency: 2x /Week Duration: 4 Weeks Plan: KYPHOPLASTY T12 PRECAUTION: OSTEOPOROSIS PT INTERVENTIONS DLS ,POSTURAL EX'S ,LE FLEXABILITY ,AEROBIC EX'S ,BLE STRENGTHENING AND ACTIVITY MODIFICATION Subjective Subjective: This 63 y/o male presents to physical therapy with thoracic and lumbar pain. Patient has had back pain many years 1987 . Most recently , fell at home in September 07 thus admitted to [facility] had CTSCAN showed T12 compression fx. Patient was transferred to TCU for Rehab ,then D/C for 2 weeks then d/c to home. Patient had T12 kyphoplasty ~ [address] Perry. Patient had epidural injection in lumbar as well. Dr recommended PT for strengthening.Loaction pain symmetrical lumbar /thoracic and bilateral leg pain. Aggravating factors standing and walking ,difficulty with bending and lifting. Alleviating factors rest,. No medication.Patient has h/o osteoporosis . Patient wants to do MRI needs PT. C/O paresthesia/tingling feet and legs. Coughing/sneezing -. Bowel/bladder - Patient has difficulty sleeping. Patient pain affects QOL and function/ADLS and walking. Patient goals to get stronger. SOCAIL: lives VOCATION: disablity Pain Bilateral Back: Pain Intensity (Out of 10): 5 Pain Intensity Range: 10 Comment: thoracic/lumbar Objective Objective: POSTURE: mild forward posture PALAPTION: tender LS/SI GAIT: reciprocal pattern with 2 point gait slow gait mild forward posture NEURO: c/o paresthesia/tingling feet ,reflexes L3-4 ,L4-5 ,L5-S1 1/3 FLEXABILITY: severe tight pain LUMBAR ROM: flexion mod loss pain ,extension severe pain ,side glides mod loss MMT: quads/hams 4/5 ,hip flexion 4-/5 ,ankle 4/5 Special Tests L/S Slump test left side: Positive L/S Slump test right side: Positive L/S Left Straight Leg Raise: Negative L/S Right Straight Leg Raise: Positive Balance/Special Test Scores Oswestry Low Back Score: 38 Goals Goal 1:: Patient to be I with HEP for strengthening Goal Time Frame: 4-6 Weeks Goal 2:: Patient to demonstrate 40% improvement with less pain and improved function Goal Time Frame: 4-6 Weeks Goal 3:: Patient improve function of recovery lumbar to tie shoes Goal Time Frame: 4-6 Weeks Goal 4:: Patient to improve ability to walking and stand with less pain to improve ADLS 50% Goal Time Frame: 4-6 Weeks Goal 5:: Patient to back oswestry score by 5 points to improve QOL and function Goal Time Frame: 4-6 Weeks Rehabilitation Potential Physical Therapy Diagnosis: This patient had T12 kyphoplasty and lumbar radiculopathy with possible stenosis with comorbities influence condition along with osteoporosis with pain with walking and standing affects ADLS with being deconditioned pain with motion testing along with weakness thus benefit from skilled PT Rehabilitation Potential: Good Anticipated Interventions Patient/Client Instruction: Educate patient on: Condition and Plan of Care For the Purpose of:: To decrease pain, To increase ROM, To improve muscle performance and motor function, To improve ability to perform ADL's, To increase tolerance to activity/condition/position, To improve ability of physical actions for home/community/work/leisure, To improve health of tissue, To decrease soft tissue restriction, To increase flexibility/ROM, To improve balance and To reduce risk of recurrence Therapeutic Exercise to Include: Strength training, Endurance training, Balance training, Postural training, Flexibilty training and Dynamic Lumbar Stabilization Comment: BLE For the Purpose of:: To decrease pain, To increase ROM, To improve muscle performance and motor function, To increase tolerance to activity/ condition/position, To improve ability of physical actions for home/community/work/leisure, To improve health of tissue, To decrease soft tissue restriction, To increase flexibility/ROM and To reduce risk of recurrence TENS: Yes IF ES: Yes Cryotherapy (ice pack, ice massage): Yes Thermo therapy (hot pack): Yes Ultrasound (thermal/non thermal): Yes For the Purpose of:: To decrease pain, To increase ROM, To improve nutrient delivery to tissue, To increase oxygenation perfusion, To improve health of tissue and To decrease soft tissue restriction Text: Thank you for the opportunity to evaluate your patient. For Medicare and Medicare HMO plans, please review the plan of care and approve it. It will need to be FAXED BACK to us at [phone] for Medicare purposes. For Medicare only, by signing this I certify the plan of care. Please let me know if there are questions or concerns regarding this plan of care. Physician Signature: D ate:
--- NOTE | 2024-02-03 13:23 | HP.PT.NRP ---
Patient Information Patient Information: JULI DAVIDSON was seen in my office for initial evaluation on 12/08/23. The following Plan of Care was established for this patient: POC Established Initial Frequency: 2x /Week Initial Duration: 4 Weeks Anticipated Interventions Patient/Client Instruction: Educate patient on: Condition and Plan of Care For the Purpose of:: To decrease pain, To increase ROM, To improve muscle performance and motor function, To improve ability to perform ADL's, To increase tolerance to activity/condition/position, To improve ability of physical actions for home/community/work/leisure, To improve health of tissue, To decrease soft tissue restriction, To increase flexibility/ROM, To improve balance and To reduce risk of recurrence Therapeutic Exercise to Include: Strength training, Endurance training, Balance training, Postural training, Flexibilty training and Dynamic Lumbar Stabilization For the Purpose of:: To decrease pain, To increase ROM, To improve muscle performance and motor function, To increase tolerance to activity/condition/position, To improve ability of physical actions for home/community/work/leisure, To improve health of tissue, To decrease soft tissue restriction, To increase flexibility/ROM and To reduce risk of recurrence TENS: Yes IF ES: Yes Cryotherapy (ice pack, ice massage): Yes Thermo therapy (hot pack): Yes Ultrasound (thermal/non thermal): Yes For the Purpose of:: To decrease pain, To increase ROM, To improve nutrient delivery to tissue, To increase oxygenation perfusion, To improve health of tissue and To decrease soft tissue restriction Last Seen Last Seen: This patient was last seen in our office . Pertinent comments regarding their Physical therapy will appear below: This patient seen for PT for thoracic and lumbar pain and h/o thoracic kyphoplasty for strengthening and HEP At this point I will be discontinuing this patient from physical therapy. I would be happy to see this patient again in the future if found appropriate by the physician. Thank you! Rolan Felix, PT, Cert MDT, OCS Balance/Gait/Functional tests Balance/Special Test Scores Oswestry Low Back Score: 38
== END 2023-12-23 19:00 | disposition home or self-care (01) ==
LOC: PT 09:30
PROVIDERS: PCP Family Medicine Geriatric Medicine; Referring Provider Anesthesiology; Visit Provider Anesthesiology
DX: M54.16 Radiculopathy, lumbar region (principal); M47.814 Spondylosis without myelopathy or radiculopathy, thoracic region
CPT/HCPCS: 97110; 97162

== ENCOUNTER → 2024-01-13 | Outpatient (CLI) | payer MEDICARE, SELFPAY ==
--- NOTE | 2024-01-13 07:02 | MRI_ITS ---
STUDY: MRI THORACIC SPINE WITHOUT CONTRAST REASON FOR EXAM: Male, 63 years old. COLLAPSED VERTEBRAE, H/O KYPHOPLASTY TECHNIQUE: Standardized fat and water weighted pulse sequences were obtained in the sagittal and axial planes. COMPARISON: CT lumbar spine 08/29/2023 FINDINGS: Normal kyphosis of the thoracic spine. There is no substantial scoliosis. T1-2, T2-3, T3-4, T4-5, T5-6, T6-7, T7-8, T8-9, T9-10, T10-11, T11-12: Normal endplates. Normal disc hydration, heights and morphology of the corresponding intervertebral discs. Normal central canal and intervertebral neural foramina at the corresponding levels.No change in the chronic severe wedge compression fracture of the T12 vertebral body treated with vertebroplasty with 2 mm retropulsion of the superior endplate in the spinal canal producing mild spinal stenosis and focal kyphosis. Normal visualized thoracic cord. Normal conus medullaris that terminates at the . The soft tissue structures are unremarkable. MRI/Spine Thoracic (Routine) IMPRESSION: Chronic severe wedge compression fracture of T12 treated with vertebroplasty with 2 mm retropulsion of the superior endplate in the spinal canal producing mild spinal stenosis and focal kyphosis Electronically Signed: Zev Escobedo MD at 11:52 EDT ,
--- NOTE | 2024-01-13 07:02 | MRI_ITS ---
STUDY: MRI LUMBAR SPINE WITHOUT CONTRAST REASON FOR EXAM: Male, 63 years old. LUMBAR RADICULOPATHY INTO BILATERAL LEGS TECHNIQUE: Standardized fat and water weighted pulse sequences were obtained in the sagittal and axial planes. COMPARISON: CT 08/29/2023 FINDINGS: T12-L1: Normal endplates. Normal disc height, hydration and morphology. Normal bilateral facet joints. Normal central canal and bilateral lateral recesses. Normal bilateral intervertebral neural foramina. Normal lumbar lordosis. There is no substantial scoliosis. Normal conus medullaris that terminates at the T12/L1. Interval treatment of the severe compression fracture of T12 with vertebroplasty with no change in the loss of height, wedging deformity, and 2 mm retropulsion of the superior endplate in the spinal canal producing mild spinal stenosis and focal kyphosis. L1-2: Some disc desiccation but no disc protrusion, spinal stenosis, or neural foraminal stenosis. L2-3: Normal endplates. Normal disc height, hydration and morphology. Normal bilateral facet joints. Normal central canal and bilateral lateral recesses. Normal bilateral intervertebral neural foramina. L3-4: Normal endplates. Normal disc height, hydration and morphology. Normal bilateral facet joints. Normal central canal and bilateral lateral recesses. Normal bilateral intervertebral neural foramina. L4-5: Normal endplates. Normal disc height, hydration and morphology. Normal bilateral facet joints. Normal central canal and bilateral lateral recesses. Normal bilateral intervertebral neural foramina. L5-S1: Disc desiccation but no disc protrusion, spinal stenosis, or neural foraminal stenosis. Normal visualized sacral ala. Normal visualized paraspinous soft tissue structures. MRI/Spine Lumbar (Routine) IMPRESSION: 1. Interval vertebroplasty of T12 severe compression fracture with no change in mild spinal stenosis and focal kyphosis. 2. No severe spinal stenosis or neural foraminal stenosis Electronically Signed: Zev Escobedo MD at 11:58 EDT ,
== END | disposition home or self-care (01) ==
PROVIDERS: PCP Family Medicine Geriatric Medicine; Referring Provider Anesthesiology; Visit Provider Anesthesiology
DX: M54.16 Radiculopathy, lumbar region (principal); M47.814 Spondylosis without myelopathy or radiculopathy, thoracic region
CPT/HCPCS: 72146; 72148

== ENCOUNTER 2024-01-18 14:54 | Emergency (ER) | payer MEDICARE, SELFPAY ==
[2024-01-18 14:55] VITALS: BP 137/108; PULSE 102; RESP 18; TEMP 36.3; O2SAT 96; BMI 22.6
[2024-01-18] MEDS: HYDROcodone Bitartrate/Apap 5/325 Tablet PO (16:35)
[2024-01-18] MEDS: Lidocaine 1% (20 ml mdv) 20 ML Vial 30 ML INFILT (16:36)
--- NOTE | 2024-01-18 17:25 | RAD_ITS ---
STUDY: X-RAY - LEFT HAND REASON FOR EXAM: Male, 63 years old. pain TECHNIQUE: 3 view(s) of the hand. COMPARISON: None. FINDINGS: Normal radiocarpal articulation. Normal distal radioulnar joint. Normal visualized carpal bones. Normal carpal articulations Normal carpometacarpal articulation of the thumb. Normal second through fifth carpometacarpal joints. Normal metacarpi. Normal metacarpophalangeal joint of the thumb. Normal interphalangeal joint of the thumb. Normal proximal and distal phalanges of the thumb. Normal metacarpophalangeal joints of the second through fifth fingers. Normal proximal and distal interphalangeal joints of the second through fifth fingers. Deformity of the third distal phalanx likely from prior trauma. The soft tissue structures are unremarkable. RAD/Hand Min 3 Views IMPRESSION: Normal x-ray examination of the hand. Electronically Signed: Zev Escobedo MD at 17:42 EDT ,
[2024-01-18 18:54] VITALS: BP 125/72; PULSE 91; RESP 16; O2SAT 98
--- NOTE | 2024-01-23 07:13 | EX.ED.UPPERE ---
HPI History of Present Illness Chief Complaint: Laceration Narrative Narrative: 63 male presenting with left hand laceration to the palmar surface. He states he was holding a rope medial course when the rope was pulled as a horse tried to pull away and he lacerated his left hand on the palm. Tetanus is up-to-date. Patient has no numbness or tingling. PFSH PFSH Medical History Rhabdomyolysis Hyponatremia Fall Debility T12 compression fracture Recurrent falls Thrombocytopenia Alcohol abuse Home Medications ?Medication ?Instructions ?Recorded ?Last Taken ?Type folic acid 1 mg tablet 1 mg PO DAILYCM 30 days #30 tabs 09/13/23 Unknown Rx gabapentin 400 mg capsule 800 mg (2 x 400 mg) PO TIDCM 30 09/13/23 Unknown Rx days #180 caps nicotine 21 mg/24 hr daily 21 mg transdermal DAILY 30 days 09/13/23 Unknown Rx transdermal patch #30 ea thiamine HCl (vitamin B1) 100 mg 100 mg PO DAILY 30 days #30 tabs 09/13/23 Unknown Rx tablet (Vitamin B-1) Allergy/AdvReac Type Severity Reaction Status Date / Time No Known Allergies Allergy Verified 01/18/24 14:54 Family History no significant family his Social History household members: none Smoking Status: Current every day smoker tobacco type: cigars alcohol intake: current Alcohol type: beer details: 12 beers daily. substance use type: does not use ROS ROS ED Constitutional Constitutional ED: Denies chills, fever(s) or sweats Eyes Eyes: Denies blurry vision or change in vision ENT ENT ED: Denies ear pain or sore throat Cardiovascular Cardiovascular: Denies chest pain, palpitations or racing heartbeat Respiratory/Chest Respiratory/Chest: Denies cough, dyspnea or sputum Gastrointestinal Gastrointestinal: Denies abdominal pain, constipation, diarrhea, nausea or vomiting Genitourinary Genitourinary ED: Denies dysuria, hematuria or urinary frequency Musculoskeletal Musculoskeletal: Denies arthralgias, myalgias or neck pain Integumentary Reports other Details: Lacerations left arm ; Denies abscess, Abrasions or rash Neurologic Neurologic: Denies headache(s), paresthesias or weakness Psychiatric Psychiatric: Denies anxiety, depression, suicidal ideation or suicidal thoughts Endocrine Endocrinology: Denies polydipsia or polyuria EXAM Physical Exam Const Positive well nourished General Appearance ED: NAD HEENT Reports moist mucous membranes Eyes PERRL and EOMs intact bilaterally Resp normal respiratory effort Cardio regular rate and regular rhythm Extremity full ROM Neuro oriented x3 and CN's II-XII intact bilaterally Sensorium / Orientation: alert Skin Skin Narrative: 2 lacerations noted to the left hand on the palmar surface they are both about 2 cm in length. They are parallel to each other at the radial endpoints. Neurovascular intact. Motor strength normal. Please MDM MDM MDM Narrative Medical decision making narrative: Patient presenting with lacerations. We did obtain x-rays of the left hand due to pain concern for fracture. My x-ray interpretation of the left hand shows no acute fracture or subluxation. Patient was given [place] for pain. Hand was prepped and draped in usual sterile fashion. Patient's wound was cleaned with Shur-Clens and anesthetized with 4 cc of lidocaine. Good anesthesia was achieved. Wound was irrigated with 500 cc of sterile saline. The more proximal laceration on the left palm came together with 3 3?0. The more distal laceration required 2 sutures on the lateral aspect of the wound. On the medial aspect was unable to suture this due to the overlap of the other laceration however it was well-approximated. Patient's wound will be cleaned and dressed the left in this position. Wound care and wound return precautions were discussed. Patient is discharged in stable condition. Impression: 1. 2.0 proximal palm laceration 2. 2.0 distal palm laceration Lab Data Attestation: I reviewed the patient's lab results. Radiography Diagnostic Testing: Clinical Impression(s) from Imaging Studies Hand X-Ray 01/18/24 17:25 IMPRESSION: Normal x-ray examination of the hand. Electronically Signed: Zev Escobedo MD at 17:42 EDT , Discharge Plan Triage Chief Complaint: Laceration ED Provider: Freddie Villarreal Dx/Rx/DC Orders Instructions: ED Laceration Extremity Prescriptions: No Action gabapentin 400 mg Capsule 800 mg PO TIDCM 30 Days Qty: 180 0RF thiamine HCl (vitamin B1) [Vitamin B-1] 100 mg Tablet 100 mg PO DAILY 30 Days Qty: 30 0RF nicotine 21 mg/24 hr Patch 24 Hour 21 mg transdermal DAILY 30 Days Qty: 30 0RF folic acid 1 mg Tablet 1 mg PO DAILYCM 30 Days Qty: 30 0RF Primary Care Provider: Elgin Honeycutt Chi Referrals: Elgin Honeycutt Chi, MD [Primary Care Provider] - Print Language: Romanian Disposition Disposition: Home, Self Care Discharge Date/Time: 01/18/24 20:19
== END 2024-01-18 20:19 | disposition home or self-care (01) ==
PROVIDERS: Emergency Provider Student in an Organized Health Care Education/Training Program; PCP Family Medicine Geriatric Medicine; Visit Provider Student in an Organized Health Care Education/Training Program
DX: S61.412A Laceration without foreign body of left hand, initial encounter (principal); F17.200 Nicotine dependence, unspecified, uncomplicated; M79.642 Pain in left hand; W26.8XXA Contact with other sharp object(s), not elsewhere classified, initial encounter
CPT/HCPCS: 12002; 73130; 99283

== ENCOUNTER → 2024-03-28 | Outpatient (CLI) | payer MEDICARE, SELFPAY ==
--- NOTE | 2024-03-28 10:29 | RAD_ITS ---
EXAM: XR CHEST, 2 VIEWS CLINICAL INDICATION: CHEST PAIN, SOB TECHNIQUE: Frontal and lateral views of the chest. COMPARISON: 08/29/2023 FINDINGS: LUNGS AND PLEURAL SPACES: Reticular interstitial prominence bilaterally similar to the prior examination consistent with chronic interstitial changes with perhaps peripheral fibrosis. No definite focal pneumonia. No pneumothorax. No effusion. HEART: No significant abnormality. Cardiac silhouette not enlarged. MEDIASTINUM: Central airways and mediastinal contour are unremarkable. BONES/JOINTS: Lower thoracic vertebral augmentation with associated compression fracture. No acute osseous findings. Degenerative changes. SOFT TISSUES: No significant abnormality. RAD/Chest PA and Lateral IMPRESSION: 1. Reticular interstitial prominence bilaterally similar to the prior examination consistent with chronic interstitial changes with perhaps peripheral fibrosis. No definite focal pneumonia. 2. Lower thoracic vertebral augmentation with associated compression fracture. No acute osseous findings. Degenerative changes. Electronically Signed: Dillan Wood DO at 20:02 EDT ,
[2024-03-28 10:32] LABS: Absolute Lymphocyte Count 2.89 X10^3/uL (0.83-4.51); Absolute Neutrophil Count 3.3 X10^3/uL (2.0-7.7); Basophil# 0.13 X10^3/uL; Basophil% 1.7 % (0-1); Eosinophil# 0.45 X10^3/uL; Eosinophils% 5.9 % (0-5); Hemoglobin 17.7 g/dL (13.0-16.5); Lymphocyte # 2.89 X10^3/ul (0.83-4.51); Lymphocyte % 37.8 % (19-41); Mean Corp Hgb Conc 33.4 g/dL (32-36); Mean Corpuscular Hgb 31.6 pg (27.0-32.0); Mean Corpuscular Volume 94.6 fL (80-94); Mean Platelet Vol. 10.6 fl (6.2-12.0); Monocyte# 0.88 X10^3/uL; Monocyte% 11.5 % (0-10); NRBC Flagged by Analyzer 0 % (0-5); Neutrophil # 3.27 X10^3/uL (2.7-7.7); Neutrophil % 42.8 % (47-70); Platelet Count 273 K/mm3 (150-450); RBC Distribution Width CV 13.2 % (11.6-14.6); RBC Distribution Width SD 46.3 fl (35.1-43.9); White Blood Count 7.6 K/mm3 (4.4-11.0)
[2024-03-28 11:00] LABS: Vitamin D,25 Hydroxy 25.3 ng/mL
[2024-03-28 11:10] LABS: ALB/GLOB Ratio 0.9 RATIO (0.9-2.4); AST(SGOT) 18 U/L (15-37); Alanine Aminotransfer ALT/SGPT 18 U/L (16-61); Albumin, Serum 3.7 g/dL (3.2-5.0); Alkaline Phosphatase 97 U/L (45-117); Anion Gap 8 (5-15); BUN 5 mg/dL (7-18); BUN/Creat Ratio 6.4 RATIO (10-20); CPK Total, Creatine Kinase 76 U/L (39-308); Calcium,Total 9.1 mg/dL (8.5-10.1); Chloride 100 mmol/L (98-107); Cholesterol 247 mg/dL (200); Creatinine, Serum 0.78 mg/dL (0.70-1.30); EST Glomerular Filtration Rate 106 mL/min (>60); Est Glom Filt Rate - Afr Amer 128 mL/min (>60); Globulin 4.1 g/dL (2.2-4.2); Glucose 80 mg/dL (74-106); High Density Lipoprotein 59 mg/dL; Potassium 3.6 mmol/L (3.5-5.1); Protein, Total 7.8 g/dL (6.4-8.2); Sodium Level 131 mmol/L (136-145); Triglycerides 188 mg/dL; Troponin-I HS 3 pg/mL (3.0-78.0); Very Low Density Lipoprotein 38 mg/dL (5-40)
[2024-03-29 08:13] LABS: Myoglobin, Serum 40 ng/mL (28-72)
== END | disposition home or self-care (01) ==
PROVIDERS: PCP Family Medicine Geriatric Medicine; Referring Provider Family Medicine Geriatric Medicine; Visit Provider Family Medicine Geriatric Medicine
DX: E78.5 Hyperlipidemia, unspecified (principal); R53.83 Other fatigue; E55.9 Vitamin D deficiency, unspecified; R07.9 Chest pain, unspecified; R06.02 Shortness of breath
CPT/HCPCS: 36415; 71046; 80053; 80061; 82306; 82550; 83874; 84443; 84484; 85025

== ENCOUNTER 2024-07-02 09:17 | Emergency (ER) | payer MEDICARE, SELFPAY ==
[2024-07-02 09:18] VITALS: BP 115/84; PULSE 109; RESP 20; TEMP 36.4; O2SAT 97
[2024-07-02 09:28] VITALS: BMI 23.8
--- NOTE | 2024-07-02 09:54 | EKG12_ITS ---
Test Reason : Blood Pressure : */* mmHG Vent. Rate : 101 BPM Atrial Rate : 101 BPM P-R Int : 150 ms QRS Dur : 78 ms QT Int : 352 ms P-R-T Axes : 58 43 69 degrees QTcB Int : 456 ms Sinus tachycardia Otherwise normal ECG Confirmed by YAW ADHIKARI, JOSHUA ([id number]), assistant film editor IDANIA ALANIS ([id number]) on 07/03/2024 7:56:09 AM Referred By: Confirmed By: JOSHUA TIDWELL MD
--- NOTE | 2024-07-02 09:57 | EX.ED.DYSGE1 ---
HPI History of Present Illness Chief Complaint: Chest Pain Informant: patient Narrative Narrative: 63-year-old male presenting to the emergency room with left neck left shoulder and chest pain. Patient states that around 1900 hrs. last evening he began to have a pain in the left side of his neck which he describes as burning and worse with movement particularly turning his head and rotation to the left and the right. He states that it moved down towards his left shoulder. He notes it is very painful this morning for him to move his shoulder. He states he had an appoint with his primary care doctor and went to that appointment but they were not in so they advised him to come to emergency. He states the pain radiates across his upper left chest. He denies any known trauma to the area. He states he has had prior stroke as well as heart attack. He was in the hospital/rehab this year for extended period due to a broken back following a fall. He denies any fever or rashes. He notes no change in his chronic cough. He states he occasionally wheezes but does not wish a breathing treatment because it makes him jittery. PFSH [facility] Medical History Rhabdomyolysis Hyponatremia Fall Debility T12 compression fracture Recurrent falls Thrombocytopenia Alcohol abuse Home Medications ?Medication ?Instructions ?Recorded ?Last Taken ?Type folic acid 1 mg tablet 1 mg PO DAILYCM 30 days #30 tabs 09/13/23 Unknown Rx nicotine 21 mg/24 hr daily 21 mg transdermal DAILY 30 days 09/13/23 Unknown Rx transdermal patch #30 ea thiamine HCl (vitamin B1) 100 mg 100 mg PO DAILY 30 days #30 tabs 09/13/23 Unknown Rx tablet (Vitamin B-1) cyclobenzaprine 10 mg tablet 10 mg PO TID PRN Muscle Spasm #15 07/02/24 Unknown Rx TABLETS gabapentin 800 mg tablet 800 mg PO TID 07/02/24 Unknown History lidocaine 5 % topical patch 1 patch topical DAILY 5 days #5 ea 07/02/24 Unknown Rx (Lidoderm) oxycodone-acetaminophen 5 mg-325 1 tab PO Q6H PRN PRN Pain 3 days 07/02/24 Unknown Rx mg tablet #12 TABLETS Allergy/AdvReac Type Severity Reaction Status Date / Time No Known Allergies Allergy Verified 07/02/24 09:21 Social History household members: none Smoking Status: Current every day smoker tobacco type: cigars alcohol intake: current Alcohol type: beer details: 12 beers daily. substance use type: does not use ROS ROS ED Constitutional Constitutional ED: Denies chills, fever(s) or weight loss Eyes Eyes: Denies change in vision or diplopia ENT ENT ED: Denies ear pain, rhinorrhea or sore throat Cardiovascular Cardiovascular: Reports chest pain; Denies orthopnea, palpitations or racing heartbeat Respiratory/Chest Respiratory/Chest: Reports cough; Denies dyspnea or orthopnea Gastrointestinal Gastrointestinal: Denies abdominal pain, diarrhea, nausea or vomiting Genitourinary Genitourinary ED: Denies dysuria, hematuria or urinary frequency Musculoskeletal Musculoskeletal: Reports neck pain and other Details: Left shoulder pain ; Denies arthralgias or myalgias Integumentary Denies abscess or rash Neurologic Neurologic: Denies headache(s), paresthesias or weakness Psychiatric Psychiatric: Denies anxiety, depression, suicidal ideation or suicidal thoughts Endocrine Endocrinology: Denies polydipsia, polyphagia or polyuria Allergic/Immunologic Allergic/Immunologic ED: Denies mouth swelling, tongue swelling or urticaria EXAM Physical Exam Const Vital Signs: 07/02/24 09:18 07/02/24 10:18 07/02/24 11:00 Temperature 97.5 F L Temperature Source Oral Pulse Rate 109 H 94 94 Respiratory Rate 20 H 19 H Blood Pressure 115/84 H 135/102 H 141/80 H Blood Pressure Mean 94 113 100 Pulse Ox 97 96 Oxygen Delivery Method Room Air Room Air Positive well nourished and well developed General Appearance ED: well developed and NAD HEENT Reports normocephalic, head/scalp atraumatic, TM's clear and moist mucous membranes HEENT Narrative: Ear canals without rash or swelling Tympanic Membrane ED: Yes TM's clear Eyes PERRL and EOMs intact bilaterally Neck no lymphadenopathy, supple and no JVD Neck Narrative: Pain with movement of his neck. Tender to palpation over the left paraspinal musculature particularly the trapezius muscle. I do not appreciate any rash in the area. Resp normal respiratory effort and clear to auscultation bilaterally Cardio regular rate, regular rhythm and no murmurs GI normal to inspection, nondistended, normoactive bowel sounds and non-tender Palpation: soft Back/Spine no CVA tenderness and normal ROM Extremity Extremity Narrative: No significant swelling or obvious deformity to the left shoulder. Painful range of motion. Neurovascular intact distal. General Extremety ED: Negative for edema General Extremity: Negative for edema Neuro oriented x3 and CN's II-XII intact bilaterally Sensorium / Orientation: alert Motor Exam: strength 5/5 throughout Psych mental status grossly normal Mood & Affect: Negative for depressed or tearful Skin no rashes or lesions noted and no wounds MDM MDM MDM Narrative Medical decision making narrative: Differential diagnosis includes but not limited to acute coronary syndrome pneumonia pneumothorax neck spasm degenerative arthrosis cervical radiculopathy Hemoglobin 17.8 with a white count 9.9 platelet count 280 BMP shows a glucose 109 troponin less than 3 (greater than 12 hours of symptoms). EKG is nonischemic with a sinus tachycardia. My independent interpretation the chest x-ray is no acute process. My independent interpretation of the cervical spine is degenerative changes no acute findings. My independent interpretation of plain films of the left shoulder is no acute process. Patient received a dose of Toradol and oxycodone with some improvement of his symptoms. Heart rate is down into the 90s. Clinically given his distribution along the left trapezius and his symptoms of pain with movement of his neck and shoulder I think this is most likely musculoskeletal in nature. I can write for some muscle relaxants Lidoderm patch if you oxycodone. Would recommend PCP follow-up 5 to 7 days if not improving. Patient to return if worsening History & Record Review Discussion w/independent historian: Patient Lab Data Attestation: I reviewed the patient's lab results. Labs: Laboratory Results - last 24 hr 07/02/24 09:30 WBC 9.9 RBC 5.54 Hgb 17.8 H Hct 53.2 MCV 96.0 H MCH 32.1 H MCHC 33.5 RDW Std Deviation 47.2 H RDW Coeff of Yousuf 13.2 Plt Count 280 MPV 10.3 Immature Gran % (Auto) 0.400 Neut % (Auto) 60.3 Lymph % (Auto) 23.1 [place] % (Auto) 11.3 H Eos % (Auto) 3.9 Baso % (Auto) 1.0 Absolute Neuts (auto) 6.0 Absolute Lymphs (auto) 2.29 Nucleated RBC % 0 Sodium 134 L Potassium 4.1 Chloride 106 Carbon Dioxide 26.0 Anion Gap 3 L BUN 6 L Creatinine 0.84 Estim Creat Clear Calc 104.79 Est GFR (MDRD) Af Amer 118 Est GFR (MDRD) Non-Af 97 BUN/Creatinine Ratio 7.1 L Glucose 109 H Calcium 9.4 Troponin I High Sens < 3 L Radiography Diagnostic Testing: Clinical Impression(s) from Imaging Studies Cervical Spine X-Ray 07/02/24 10:22 IMPRESSION: Degenerative changes, no acute findings Electronically Signed: Danie Nuñez MD at 10:51 EST , Chest X-Ray 07/02/24 10:22 IMPRESSION: No acute pulmonary process, no interval change Electronically Signed: Danie Nuñez MD at 10:49 EST , Shoulder X-Ray 07/02/24 10:22 IMPRESSION: Arthrosis, no fracture or suspicious osseous lesion Electronically Signed: Danie Nuñez MD at 10:50 EST , EKG Initial EKG: Attestation: I personally reviewed and interpreted this EKG as follows: Comments: Sinus tachycardia ventricular rate of 101 bpm Discharge Plan Triage Chief Complaint: Chest Pain ED Provider: Jesse Mak Dx/Rx/DC Orders Clinical Impression: Acute neck pain, Acute pain of left shoulder Instructions: ED Neck Spasm, No Trauma Prescriptions: New cyclobenzaprine 10 mg tablet 10 mg PO TID PRN (Reason: Muscle Spasm) Qty: 15 0RF oxycodone-acetaminophen 5-325 mg tablet 1 tab PO Q6H PRN PRN (Reason: Pain) 3 Days Qty: 12 0RF lidocaine [Lidoderm] 5 % adhesive patch,medicated 1 patch topical DAILY 5 Days Qty: 5 0RF Rx Instructions: leave on most painful area for up to 12 hrs No Action thiamine HCl (vitamin B1) [Vitamin B-1] 100 mg Tablet 100 mg PO DAILY 30 Days Qty: 30 0RF nicotine 21 mg/24 hr Patch 24 Hour 21 mg transdermal DAILY 30 Days Qty: 30 0RF folic acid 1 mg Tablet 1 mg PO DAILYCM 30 Days Qty: 30 0RF gabapentin 800 mg tablet 800 mg PO TID Primary Care Provider: Elgin Honeycutt Chi Referrals: Elgin Honeycutt Chi, MD [Primary Care Provider] - Print Language: Tajik
[2024-07-02 10:04] LABS: Absolute Lymphocyte Count 2.29 X10^3/uL (0.83-4.51); Eosinophil# 0.39 X10^3/uL; Eosinophils% 3.9 % (0-5); Hematocrit 53.2 % (40-54); Hemoglobin 17.8 g/dL (13.0-16.5); Lymphocyte # 2.29 X10^3/ul (0.83-4.51); Lymphocyte % 23.1 % (19-41); Mean Corp Hgb Conc 33.5 g/dL (32-36); Mean Corpuscular Hgb 32.1 pg (27.0-32.0); Mean Platelet Vol. 10.3 fl (6.2-12.0); Monocyte# 1.12 X10^3/uL; Monocyte% 11.3 % (0-10); NRBC Flagged by Analyzer 0 % (0-5); Neutrophil # 5.99 X10^3/uL (2.7-7.7); Neutrophil % 60.3 % (47-70); Platelet Count 280 K/mm3 (150-450); RBC Distribution Width CV 13.2 % (11.6-14.6); RBC Distribution Width SD 47.2 fl (35.1-43.9); Red Blood Count 5.54 M/mm3 (4.6-6.2); White Blood Count 9.9 K/mm3 (4.4-11.0)
[2024-07-02] MEDS: oxyCODONE 5 MG Tablet PO (10:16)
[2024-07-02] MEDS: Ketorolac 30 MG/ML Syringe IV (10:16)
[2024-07-02 10:18] VITALS: BP 135/102; PULSE 94
--- NOTE | 2024-07-02 10:22 | RAD_ITS ---
STUDY: X-RAY - CERVICAL SPINE REASON FOR EXAM: Male, 63 years old. Neck pain TECHNIQUE: 3 view(s) of the cervical spine were obtained. COMPARISON: None FINDINGS: Normal anterior atlantoaxial articulation. Normal odontoid process. Normal cervical lordosis. Normal vertebral bodies and endplates. There is multi-level degenerative disc disease with multilevel disc space narrowing. The soft tissue structures are unremarkable. RAD/Cerv Spine 2 or 3 Views IMPRESSION: Degenerative changes, no acute findings Electronically Signed: Danie Nuñez MD at 10:51 EST ,
--- NOTE | 2024-07-02 10:22 | RAD_ITS ---
STUDY: X-RAY - LEFT SHOULDER REASON FOR EXAM: Male, 63 years old. pain TECHNIQUE: 4 view(s) of the shoulder. COMPARISON: None. FINDINGS: There is moderate degenerative arthrosis of the glenohumeral articulation. There is degenerative arthrosis of the acromioclavicular joint without inferior osseous spur formation. Normal acromion. Normal humeral head and visualized proximal humerus. The soft tissue structures are unremarkable. Normal visualized pulmonary apex. RAD/Shoulder min 2 Views IMPRESSION: Arthrosis, no fracture or suspicious osseous lesion Electronically Signed: Danie Nuñez MD at 10:50 EST ,
--- NOTE | 2024-07-02 10:22 | RAD_ITS ---
STUDY: X-RAY CHEST REASON FOR EXAM: Male, 63 years old. Substernal chest pain TECHNIQUE: Single AP portable view of the chest. COMPARISON: 03/28/2024 FINDINGS: EKG leads overlie the chest The lungs are clear and expanded. There is no demonstrated pleural abnormality. Normal size heart. Normal mediastinum and wyatt. Normal visualized pulmonary arteries. Normal visualized aortic arch and descending thoracic aorta. Normal visualized thoracic spine. Normal visualized ribs, clavicles, and shoulders. There is no demonstrated abnormality of the visualized soft tissue structures of the upper abdomen. RAD/Chest 1 View (Portable) IMPRESSION: No acute pulmonary process, no interval change Electronically Signed: Danie Nuñez MD at 10:49 EST ,
[2024-07-02 10:24] LABS: Anion Gap 3 (5-15); BUN 6 mg/dL (7-18); BUN/Creat Ratio 7.1 RATIO (10-20); Calcium,Total 9.4 mg/dL (8.5-10.1); Chloride 106 mmol/L (98-107); Creatinine, Serum 0.84 mg/dL (0.70-1.30); EST Glomerular Filtration Rate 97 mL/min (>60); Est Glom Filt Rate - Afr Amer 118 mL/min (>60); Estimated Creatinine Clearance 104.79 ml/min; Glucose 109 mg/dL (74-106); Potassium 4.1 mmol/L (3.5-5.1); Sodium Level 134 mmol/L (136-145); Troponin-I HS < 3 pg/mL (3.0-78.0)
[2024-07-02 11:00] VITALS: BP 141/80; PULSE 94; RESP 19; O2SAT 96
[2024-07-02 11:18] VITALS: BP 134/87; PULSE 97; RESP 20; TEMP 36.7; O2SAT 94
== END 2024-07-02 11:18 | disposition home or self-care (01) ==
PROVIDERS: Emergency Provider Emergency Medicine; PCP Family Medicine Geriatric Medicine; Visit Provider Emergency Medicine
DX: M25.512 Pain in left shoulder (principal); M54.2 Cervicalgia; Z86.73 Personal history of transient ischemic attack (TIA), and cerebral infarction without residual deficits; I25.2 Old myocardial infarction; F17.290 Nicotine dependence, other tobacco product, uncomplicated
CPT/HCPCS: 71045; 72040; 73030; 80048; 84484; 85025; 93005; 96374; 99284; A4216

== ENCOUNTER → 2024-07-03 | Outpatient (CLI) | payer MEDICARE, SELFPAY ==
[2024-07-03 11:33] LABS: Cholesterol 235 mg/dL (200); High Density Lipoprotein 56 mg/dL; Triglycerides 181 mg/dL; Very Low Density Lipoprotein 36 mg/dL (5-40)
[2024-07-03 11:36] LABS: Vitamin D,25 Hydroxy 11.8 ng/mL
== END | disposition home or self-care (01) ==
LOC: POLAB3 10:43
PROVIDERS: PCP Family Medicine Geriatric Medicine; Visit Provider Family Medicine Geriatric Medicine
DX: E78.5 Hyperlipidemia, unspecified (principal); E55.9 Vitamin D deficiency, unspecified
CPT/HCPCS: 36415; 80061; 82306

== ENCOUNTER → 2024-07-30 | Outpatient (CLI) | payer MEDICARE, SELFPAY ==
--- NOTE | 2024-07-30 15:00 | MRI_ITS ---
STUDY: MRI BRAIN WITHOUT CONTRAST REASON FOR EXAM: Male, 63 years old. LEFT HEMIPARESIS TECHNIQUE: Standardized multiplanar fat and water weighted pulse sequences were obtained. MRI examination brain obtained with standard protocol including multiplanar multiecho noncontrast imaging. Contrast: No contrast administered COMPARISON: Prior study dated: CT examination of 08/29/2023 HEMISPHERES, CEREBELLUM AND BRAINSTEM: 1. The cerebral parenchyma, ventricular system, subarachnoid spaces have normal configuration and density. There is a normal gyral pattern. There is normal johnson/white differentiation. No midline shift.. 2. Diffuse involutional changes, scattered chronic microvascular deep white matter disease. No areas fluid restriction or acute ischemic change. No areas of hemosiderin deposition or hemorrhage. 3. No intraparenchymal mass, hemorrhage, or acute territorial infarct. 4. The cerebellum, brainstem, basilar and suprasellar cisterns have normal appearance. No Chiari malformation. PITUITARY: Infundibulum and pituitary have normal configuration. Midline structures appear normal. CSF SPACES: Appropriate for age. No hydrocephalus. Basal cisterns are patent. VESSELS: 1. There are normal flow voids noted in the great vessels at the skull base ORBITS AND PARANASAL SINUSES: 1. Both globes, extraocular muscles, optic nerves and retrobulbar fat appear unremarkable. Incidental note of postoperative changes of a LEFT lens replacement. 2. Paranasal sinuses are clear. BONY ELEMENTS: Bony elements of the cranial vault, facial skeleton and skull base have normal appearance. SCALP AND SOFT TISSUES: Normal appearance of the soft tissues of the scalp and the visualized face OTHER: None MRI/Brain without Contrast IMPRESSION: 1. Diffuse involutional change and chronic microvascular deep white matter disease. 2. No mass, hemorrhage, or acute territorial infarct. 3. No radiographically significant sinus disease. Electronically Signed: Zev Lay MD at 23:49 EST ,
== END | disposition home or self-care (01) ==
PROVIDERS: PCP Family Medicine Geriatric Medicine; Referring Provider Family Medicine Geriatric Medicine; Visit Provider Family Medicine Geriatric Medicine
DX: G81.94 Hemiplegia, unspecified affecting left nondominant side (principal)
CPT/HCPCS: 70551

== ENCOUNTER → 2024-08-22 | Outpatient (CLI) | payer MEDICARE, SELFPAY ==
--- NOTE | 2024-08-22 12:02 | NEURO ---
NCS and/or EMG Patient Report Ordering Doctor: Elgin Honeycutt Chi DATE OF SERVICE: 08/22/24 Lavelle presents for electrodiagnostic testing of the upper limbs. He reports numbness and tingling in both hands and pain in both arms. Electrodiagnostic findings: Median motor nerve demonstrates normal distal latency and amplitude bilaterally with reduced conduction velocities across the wrist. Normal ulnar motor response bilaterally. Prolonged median sensory latency at the wrist bilaterally. Needle EMG testing was performed in the upper limbs. All muscles tested showed no evidence of denervation with normal motor unit action potentials Electrodiagnostic impression: This is an abnormal study in the upper limbs. 1. Electrodiagnostic findings suggestive of bilateral median mononeuropathy. This is consistent with a mild bilateral carpal tunnel syndrome. Multi Select Codes Neurology Neurology Interp Codes: 80552-40 Musc test done w/n test comp (interp) (2) and 93257-15 Nrv cndj test 13/> studies (interp)
== END | disposition home or self-care (01) ==
LOC: PSN 09:54
PROVIDERS: PCP Family Medicine Geriatric Medicine; Referring Provider Family Medicine Geriatric Medicine; Visit Provider Family Medicine Geriatric Medicine
DX: R20.0 Anesthesia of skin (principal)
CPT/HCPCS: 95886; 95913

== ENCOUNTER → 2024-08-27 | Outpatient (CLI) | payer MEDICARE, SELFPAY ==
[2024-08-27 14:41] LABS: Absolute Lymphocyte Count 2.51 X10^3/uL (0.83-4.51); Absolute Neutrophil Count 3.6 X10^3/uL (2.0-7.7); Basophil% 1.4 % (0-1); Eosinophil# 0.37 X10^3/uL; Eosinophils% 5.1 % (0-5); Hematocrit 51.4 % (40-54); Hemoglobin 17.2 g/dL (13.0-16.5); Lymphocyte # 2.51 X10^3/ul (0.83-4.51); Lymphocyte % 34.8 % (19-41); Mean Corp Hgb Conc 33.5 g/dL (32-36); Mean Corpuscular Volume 95.5 fL (80-94); Mean Platelet Vol. 9.6 fl (6.2-12.0); Monocyte# 0.63 X10^3/uL; Monocyte% 8.7 % (0-10); NRBC Flagged by Analyzer 0 % (0-5); Neutrophil # 3.58 X10^3/uL (2.7-7.7); Neutrophil % 49.7 % (47-70); Platelet Count 307 K/mm3 (150-450); RBC Distribution Width CV 13.1 % (11.6-14.6); RBC Distribution Width SD 46.5 fl (35.1-43.9); Red Blood Count 5.38 M/mm3 (4.6-6.2); White Blood Count 7.2 K/mm3 (4.4-11.0)
--- NOTE | 2024-08-27 14:47 | CT_ITS ---
PROCEDURE: ABDOMEN/PELVIS WITH CONTRAST REASON FOR EXAM: Abdominal pain TECHNIQUE: Abdomen and pelvis CT with intravenous contrast. COMPARISON: None. FINDINGS: Lung bases: Clear Liver: Numerous hypodense masses with no enhancement with the largest in the right lobe measuring 4.4 cm. Gallbladder: Gallstone Spleen: Unremarkable. Pancreas: Calcifications in the pancreatic head and body. Adrenals: Left adrenal nodule consistent with an adenoma measuring 2.4 cm. Right adrenal nodule measuring 1.1 cm also suggestive of an adrenal nodule. Kidneys: No evidence of hydronephrosis. 1 cm left renal cyst. Bladder: Unremarkable. Reproductive Organs: Prostate measures 4.5 cm in transverse dimension. Bowel: Unremarkable. Appendix: Normal. Lymph nodes: No suspicious lymph node enlargement. Vasculature: Mild diffuse atherosclerotic calcifications are noted. Peritoneum / Retroperitoneum: No ascites. No free air. Bones: Compression fracture with prior vertebroplasty of T12.. CT/Abdomen/Pelvis WITH Contrast IMPRESSION: 1. Chronic pancreatitis 2. Hepatic cysts 3. Bilateral adrenal adenomas, cvtly-[id number]-left 4. Prostatomegaly 5. Compression fracture of T12 with prior vertebroplasty One or more dose reduction techniques were used (e.g., Automated exposure contr ol, adjustment of the mA and/or kV according to patient size, use of iterative reconstruction technique). Reading Location: [facility]
[2024-08-27 15:25] LABS: ALB/GLOB Ratio 0.9 RATIO (0.9-2.4); AST(SGOT) 18 U/L (15-37); Alanine Aminotransfer ALT/SGPT 27 U/L (16-61); Albumin, Serum 3.7 g/dL (3.2-5.0); Alkaline Phosphatase 100 U/L (45-117); Amylase 71 U/L (25-115); Anion Gap 11 (5-15); BUN 5 mg/dL (7-18); BUN/Creat Ratio 6.4 RATIO (10-20); Calcium,Total 9.2 mg/dL (8.5-10.1); Chloride 101 mmol/L (98-107); Creatinine, Serum 0.78 mg/dL (0.70-1.30); EST Glomerular Filtration Rate 105 mL/min (>60); Est Glom Filt Rate - Afr Amer 128 mL/min (>60); Globulin 3.9 g/dL (2.2-4.2); Glucose 136 mg/dL (74-106); Lipase 54 U/L (73-393); Magnesium 2.2 mg/dL (1.6-2.6); Phosphorus 2.3 mg/dL (2.5-4.9); Potassium 3.4 mmol/L (3.5-5.1); Protein, Total 7.6 g/dL (6.4-8.2); Sodium Level 134 mmol/L (136-145)
== END | disposition home or self-care (01) ==
PROVIDERS: PCP Family Medicine Geriatric Medicine; Visit Provider Family Medicine Geriatric Medicine
DX: K85.90 Acute pancreatitis without necrosis or infection, unspecified (principal); I10 Essential (primary) hypertension; R53.83 Other fatigue; R10.9 Unspecified abdominal pain
CPT/HCPCS: 36415; 74177; 80053; 82150; 83690; 83735; 84100; 85025; Q9967

== ENCOUNTER → 2024-09-20 | Outpatient (CLI) | payer MEDICARE, SELFPAY ==
[2024-09-20 09:31] LABS: Absolute Lymphocyte Count 1.48 X10^3/uL (0.83-4.51); Basophil# 0.06 X10^3/uL; Eosinophil# 0.04 X10^3/uL; Eosinophils% 0.7 % (0-5); Hematocrit 50.2 % (40-54); Hemoglobin 16.9 g/dL (13.0-16.5); Lymphocyte # 1.48 X10^3/ul (0.83-4.51); Lymphocyte % 24.6 % (19-41); Mean Corp Hgb Conc 33.7 g/dL (32-36); Mean Corpuscular Hgb 32.1 pg (27.0-32.0); Mean Corpuscular Volume 95.3 fL (80-94); Mean Platelet Vol. 10.1 fl (6.2-12.0); Monocyte% 6.7 % (0-10); NRBC Flagged by Analyzer 0 % (0-5); Neutrophil # 4.01 X10^3/uL (2.7-7.7); Neutrophil % 66.7 % (47-70); Platelet Count 254 K/mm3 (150-450); RBC Distribution Width CV 13.6 % (11.6-14.6); RBC Distribution Width SD 47.8 fl (35.1-43.9); Red Blood Count 5.27 M/mm3 (4.6-6.2)
[2024-09-20 10:42] LABS: ALB/GLOB Ratio 1.3 RATIO (0.9-2.4); AST(SGOT) 20 U/L (<=37); Alanine Aminotransfer ALT/SGPT 18 U/L (<=46); Albumin, Serum 4.1 g/dL (3.4-4.8); Alkaline Phosphatase 90 U/L (40-129); Anion Gap 12 (5-15); BUN 7 mg/dL (4-19); BUN/Creat Ratio 9.9 RATIO (10-20); CORTISOL AM 1.89 ug/dL (6.02-18.40); Calcium,Total 9.1 mg/dL (7.6-11.0); Carbon Dioxide 20.5 mmol/L (21.0-32.0); Chloride 101 mmol/L (98-108); Cholesterol 218 mg/dL (<=200); Creatinine, Serum 0.75 mg/dL (0.70-1.20); EST Glomerular Filtration Rate 100 (>60); Globulin 3.1 g/dL (2.2-4.2); Glucose 116 mg/dL (70-99); High Density Lipoprotein 73 mg/dL; Low Density Lipoprotein Calc. 133 mg/dL; PSA,Total - Annual Screen 0.97 ng/mL (0.02-4.00); Potassium 4.3 mmol/L (3.3-5.1); Protein, Total 7.2 g/dL (5.9-8.4); Sodium Level 134 mmol/L (133-145); Total Bilirubin 0.38 mg/dL (0.00-1.30); Triglycerides 60 mg/dL; Very Low Density Lipoprotein 12 mg/dL (5-40); Vitamin D,25 Hydroxy 14.4 ng/mL (30-100); cholesterol:hdl ratio screen 2.99
== END | disposition home or self-care (01) ==
LOC: LAB 09:02
PROVIDERS: PCP Family Medicine Geriatric Medicine; Referring Provider Family Medicine Geriatric Medicine; Visit Provider Family Medicine Geriatric Medicine
DX: Z12.5 Encounter for screening for malignant neoplasm of prostate (principal); E24.9 Cushing's syndrome, unspecified; I10 Essential (primary) hypertension; E78.5 Hyperlipidemia, unspecified; E55.9 Vitamin D deficiency, unspecified
CPT/HCPCS: 36415; 80053; 80061; 82306; 82533; 84153; 84443; 85025; G0103

== ENCOUNTER → 2024-09-21 | Outpatient (CLI) | payer MEDICARE, SELFPAY ==
--- NOTE | 2024-09-21 13:28 | MRI_ITS ---
PROCEDURE: SPINE CERVICAL (ROUTINE) 09/21/2024 REASON FOR EXAM: 64-year-old male, pain to bilateral shoulders, headaches, blurred vision, no known injury. TECHNIQUE: Noncontrast cervical spine MRI. Coronal and Sagittal reconstruction series were provided. COMPARISON: None. FINDINGS: Visualization is slightly limited by motion artifact. Vertebrae: Mild multilevel vertebral body height loss. No acute osseous fracture. Bone marrow signal is unremarkable. Alignment: Normal. No spondylolisthesis. Spinal Cord: Cervical spinal cord is of normal size and signal intensities. Structures at the foramen magnum are unremarkable. C2-3: Unremarkable C3-4: Moderate disc space narrowing. Broad-based posterior disc-osteophyte complex indents the thecal sac, resulting in mild central canal stenosis, asymmetric to the right, and moderate right neural foraminal stenosis. C4-5: Mild disc space narrowing. Broad-based posterior disc-osteophyte complex indents the thecal sac. No significant central canal or neural foraminal stenosis. C5-6: Moderate disc space narrowing. Broad-based posterior disc-osteophyte complex indents the thecal sac resulting in mild central canal stenosis. No neural foraminal stenosis. C6-7: Mild disc space narrowing. Broad-based posterior disc-osteophyte complex indents the thecal sac resulting in mild central canal and mild bilateral neural foraminal stenosis. C7-T1: Unremarkable MRI/Spine Cervical (Routine) IMPRESSION: Mild multilevel central canal stenosis, and multilevel neural foraminal stenosi s, greatest and of moderate degree on the right at C3-4. Reading Location: [id number]
== END | disposition home or self-care (01) ==
LOC: MRI 13:23
PROVIDERS: PCP Family Medicine Geriatric Medicine; Referring Provider Anesthesiology; Visit Provider Anesthesiology
DX: M54.12 Radiculopathy, cervical region (principal)
CPT/HCPCS: 72141

== ENCOUNTER → 2024-09-26 | Outpatient (CLI) | payer MEDICARE, SELFPAY ==
--- NOTE | 2024-09-26 11:15 | RAD_ITS ---
EXAM: Lumbar spine 2 or three views CLINICAL HISTORY: Concern for compression fracture, chronic pain COMPARISON: Thoracic spine CT 08/29/2023 TECHNIQUE: AP and lateral views lumbosacral spine, 2 images FINDINGS: 5 [id number] lumbar vertebral type bodies identified. Overlying bowel gas on the AP view. No acute compression fracture or malalignment. The disc spaces appear within limits. Previously noted compression fracture deformity of T12 again seen now with vertebroplasty present. Aortoiliac atherosclerotic calcifications. Numerous calcifications within the area of the head and neck of the pancreas noted. RAD/Lumbar Spine 2 or 3 Views IMPRESSION: 5 [id number] lumbar vertebral type bodies identified. Overlying bowel gas on the AP view. No acute compression fracture or malalignment. The disc spaces appear within limits. Previously noted compressi on fracture deformity of T12 again seen now with vertebroplasty present. Reading Location: [id number]
--- NOTE | 2024-09-26 11:15 | RAD_ITS ---
EXAM: X-ray thoracic spine three views CLINICAL HISTORY: Concern for compression fracture COMPARISON: PA and lateral views of the chest 03/28/2024 TECHNIQUE: Thoracic spine AP, lateral and swimmer's view, 3 total images FINDINGS: Similar appearance of anterior wedge T12 compression fracture deformity status post vertebroplasty. T2 through T11 disc spaces appear within limits without evidence of fracture or malalignment identified. T1 is not visualized on the lateral view and not well seen on the swimmer's view. Otherwise no other compression deformity identified. RAD/Thoracic Spine 3 Views IMPRESSION: Similar appearance of anterior wedge T12 compression fracture deformity status post vertebroplasty. T2 through T11 disc spaces appear within limits without evidence of fracture or malalignment identified. T1 is not visualized on the lateral view and not well seen on the swimmer's view. Otherwise no other compression deformity ident ified. Reading Location: [id number]
== END | disposition home or self-care (01) ==
LOC: RAD 11:08
PROVIDERS: PCP Family Medicine Geriatric Medicine; Referring Provider Anesthesiology; Visit Provider Anesthesiology
DX: M54.50 Low back pain, unspecified (principal); G89.29 Other chronic pain; Z98.890 Other specified postprocedural states
CPT/HCPCS: 72072; 72100

== ENCOUNTER → 2024-10-15 | Outpatient (CLI) | payer MEDICARE, SELFPAY ==
--- NOTE | 2024-10-15 07:56 | AAAS_ITS ---
Reason For Study Reason For Study: AAA screening Aorta Measurements Aorta Doppler Measurements Proximal aorta measures1.82 x 1.84cm. in cross-sectional Peak systolic flow velocities within the proximal aorta axis. measure 83.8 cm/sec. Proximal aorta measures1.82cm. in longitudinal axis. Peak systolic flow velocities within the mid aorta measure Mid aorta measures1.54 x 1.55cm. in cross-sectional axis. 98.6 cm/sec. Mid aorta measures1.63cm. in longitudinal axis. Peak systolic flow velocities within the distal aorta Distal aorta measures1.93 x 1.97cm. in cross-sectional axis.measure 92 cm/sec. Distal aorta measures1.95cm. in longitudinal axis. Left Iliac Artery Left iliac artery measures 0.99 x 1.01 cm. in the cross-sectional axis. Left iliac artery measures 1.02 cm. in the longitudinal axis. Peak systolic velocity in the left iliac artery measures 72.2 cm/sec. Right Iliac Artery Right iliac artery measures 0.80 x 0.85 cm. in the cross-sectional axis. Right iliac artery measures 0.87 cm. in the longitudinal axis. Peak systolic velocity in the right iliac artery measures 113.9 cm/sec. Procedure Aorta IVC Iliac vasculature or bypass grafts 18190. Exam performed in department. VL/AAA Screening Interpretation Summary The dimensions of the intra-abdominal aorta are normal, without evidence of ane urysmal dilatation. The iliac arteries are also normal in caliber bilaterally. The intra-abdominal aorta and iliac art eries appear patent, demonstrating normal, pulsatile arterial flow and normal peak systolic velocities. Ordering Physician: Elgin Honeycutt Chi Referring Physician: Elgin Honeycutt Chi Performed By: China Pickard RVT
== END | disposition home or self-care (01) ==
LOC: CVS 07:55
PROVIDERS: PCP Family Medicine Geriatric Medicine; Referring Provider Family Medicine Geriatric Medicine; Visit Provider Family Medicine Geriatric Medicine
DX: I71.40 Abdominal aortic aneurysm, without rupture, unspecified (principal)
CPT/HCPCS: 76706

== ENCOUNTER → 2024-11-06 | Outpatient (CLI) | payer MEDICARE, SELFPAY ==
--- NOTE | 2024-11-06 08:00 | RAD_ITS ---
EXAM: Double contrast upper GI series and small-bowel series (combined dictation). CLINICAL HISTORY: Abdominal pain. Gastric ulcer concern. COMPARISON: None. TECHNIQUE: Double contrast upper GI series and small-bowel series (combined dictation). FINDINGS: The upper GI series demonstrates recurrent esophageal spasm of the distal esophagus. No area of persistent narrowing was noted. No mucosal abnormality is seen. No evidence of narrowing of the esophagogastric junction is noted. During the time of imaging, gastroesophageal reflux was not elicited. The stomach demonstrates no significant gastric mucosal thickening. No mass or ulcer is identified. Evaluation is somewhat limited suboptimal gastric mucosal contrast. No duodenal abnormality is noted. The small bowel series shows very rapid passage of contrast into the colon, with contrast in the colon by the 15 minute film. Normal mucosa of both jejunum and ileum is seen. No abnormality is noted of the ileocecal valve. RAD/Upper GI/w Small Bowel IMPRESSION: 1. Recurrent distal esophageal spasm. 2. Very rapid passage of contrast from the stomach through to the colon. 3. Normal-appearing jejunal and ileal mucosa. Reading Location: [place] [id number]
== END | disposition home or self-care (01) ==
LOC: RAD 07:53
PROVIDERS: PCP Family Medicine Geriatric Medicine; Referring Provider Family Medicine Geriatric Medicine; Visit Provider Family Medicine Geriatric Medicine
DX: R10.9 Unspecified abdominal pain (principal); K25.9 Gastric ulcer, unspecified as acute or chronic, without hemorrhage or perforation
CPT/HCPCS: 74246; 74248

== ENCOUNTER → 2024-11-27 | Day surgery (SDC) | payer MEDICARE, SELFPAY ==
[2024-11-27] VITALS (7 sets, daily range): BP systolic 112–133; BP diastolic 67–87; PULSE 90–99; RESP 16; TEMP 36.1–36.8; O2SAT 95–97; BMI 24.5
[2024-11-27] MEDS: Lactated Ringers 1,000 ML 15 ML IV (14:15)
--- NOTE | 2024-11-27 15:15 | EGD_PTH ---
PATIENT: JULI DAVIDSON LOC: EN U#:[id number] AGE/SX: 64/M ROOM: RE11/27/[address]: Dr. Kiko Almanzar DO : 1960 BED: DIS: 11/27/2024 SPEC #: [id number] RECD: 11/28/24 08:08 STATUS: LENNY DEWAYNE #: [id number] DONNA: 11/27/24 15:[address]: Kiko Almanzar DEPT: SURGICAL PATHOLOGY RECD BY: Anish Morton ENTERED: 11/28/24 08:59 SP TYPE: EGD BIOPSY ANDREI DR: Dr. Elgin Honeycutt MD Tissues: A - Duodenum, NOS Procedures: Surgery Specimen Level IV HEADER OPERATION: EGD, biopsy PRE-OP DIAGNOSIS: Chronic pancreatitis, severe malnutrition TISSUE SUBMITTED: A- Duodenum biopsy MICROSCOPIC DIAGNOSIS A. Small bowel, duodenum, biopsy: Normal villous architecture with no specific pathologic change. Negative for increased intraepithelial lymphocytes. MICROSCOPIC DESCRIPTION Slides are reviewed. GROSS DESCRIPTION A. Received in formalin in a container labeled with the patient's name, date of , and duodenum biopsy is a 0.7 x 0.4 x 0.2 cm fragment of freeman-pink mucosal tissue. Submitted in toto in A1. [facility] 11-28-2024 CPT:06362
--- NOTE | 2024-11-27 15:27 | PCM.PRE.AN2 ---
ASA Classification* ASA Classification ASA Classification: 4 Assessment & Plan Anesthesia* Anesthesia Assessment Anesthesia Assessment: Discussed sedation and/or anesthesia options, risks, benefits, and alternatives with patient/parents/legal guardian/POA. Questions invited. The patient/parents/legal guardian/POA seems to understand and agrees to proceed with anesthesia plan. Reviewed the physical assessment, medical history, allergy history and patient home medications list prior to surgery/procedure/anesthetic and documented any changes. Performed airway and anesthesia risk assessments. Anesthesia Type Anesthesia Type: MAC History Source History Obtained from:: Patient and Chart Anesthesia Focused Assessment* Temperature: 98.3 F Pulse Rate: 93 Blood Pressure: 133/87 Respiratory Rate: 16 Pulse Ox: 95 Oxygen Delivery Method: Room Air Airway Assessment Mouth opens: >3 cm Mallampati Score: I Teeth Condition: Dentures (Patient has full upper and lower dentures. They are out.) Neck Range of motion (ROM): Full ROM Focused Labs Anesthesia Preop lab: CBC WBC 6.0 K/mm3 (4.4-11.0) 09/20/24 09:10 09/20/24 RBC 5.27 M/mm3 (4.6-6.2) 09/20/24 09:10 09/20/24 Hgb 16.9 g/dL (13.0-16.5) H 09/20/24 09:10 09/20/24 Hct 50.2 % (40-54) 09/20/24 09:10 09/20/24 Plt Count 254 K/mm3 (150-450) 09/20/24 09:10 09/20/24 CHEMISTRY Potassium 4.3 mmol/L (3.3-5.1) 09/20/24 09:10 09/20/24 Sodium 134 mmol/L (133-145) 09/20/24 09:10 09/20/24 Magnesium 2.2 mg/dL (1.6-2.6) 08/27/24 14:28 08/27/24 Phosphorus 2.3 mg/dL (2.5-4.9) L 08/27/24 14:28 08/27/24 BUN 7 mg/dL (4-19) 09/20/24 09:10 09/20/24 Creatinine 0.75 mg/dL (0.70-1.20) 09/20/24 09:10 09/20/24 Glucose 116 mg/dL (70-99) H 09/20/24 09:10 09/20/24 TSH 1.970 uIU/mL (0.300-4.200) 09/20/24 09:10 09/20/24 COAG PT 13.2 SECONDS (11.7-14.9) 10/24/23 09:17 10/24/23 Pre-Assessment Diagnosis/Proposed Procedure Planned Operative Procedure(s): egd Anesthesia History 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 When Was Last Pacemaker Check QUESTION #4 FULL TEXT: You/Your Family Experience fever (hyperthermia) with Anesthesia Last Oral Intake Last Oral intake: Last Oral Intake NPO since 00:00 11/27/24 14:35 Meds taken in AM with sips of No 11/27/24 14:35 water? Meds patient instructed to take am of surgery PONV PONV - live truck operator: PONV - live truck operator Female No 11/27/24 14:17 HX of Motion Sickness No 11/27/24 14:17 HX of N/V After Surgery No 11/27/24 14:17 Non-Smoker No 11/27/24 14:17 Duration of Surgery greater No 11/27/24 14:17 than 60 minutes Number of Risk Factors PONV Score Height & Weight Height & Weight: Anesthesia: Height & Weight Height 6 ft 3 in 11/27/24 14:35 Weight: 89.267 kg 11/27/24 14:35 Body Mass Index (BMI) 24.5 11/27/24 14:35 Respiratory Assessment Respiratory Assessment - live truck operator: Respiratory Tract Infection Hx - live truck operator Hx Respiratory Tract Infection No: chronic cough from COPD 11/27/24 14:17 STOP Sleep Apnea STOP Sleep Apnea - live truck operator: STOP Sleep Apnea - live truck operator Hx Hypertension No 11/27/24 14:17 Hx Sleep Apnea No 11/27/24 14:17 CPAP BIPAP Do you snore loudly (louder No 11/27/24 14:17 than talking or can be heard Do you often feel tired/ No 11/27/24 14:17 fatigued/ sleepy during daytime? Has anyone observed you stop No 11/27/24 14:17 breathing during sleep? STOP Results Negative 11/27/24 14:17 QUESTION #5 FULL TEXT : Do you snore loudly (louder than talking or can be heard through closed doors)? 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 Specify any problems Hx of Preganancy in last 3 N/A 11/27/24 14:17 Months Nurse Filling Out Transfusion NBUCHER 11/27/24 14:17 & Questions: Date: 11/27/24 11/27/24 14:17 Time: 14:20 11/27/24 14:17 Patient unable to answer at this time (ie. confused, unrespo /Reproduction History /Reproductive History - live truck operator: /Reproductive Hx- live truck operator Hx Now No 11/27/24 14:17 Gestational Age (in weeks): EDC: Hx Hx Para Hx Section SAB No 11/27/24 14:17 Active Medications Active Medications: Current Medications Generic Name Dose Route Start Last Admin Trade Name Freq PRN Reason Stop Dose Admin Lactated Ringer's 1,000 mls @ 15 mls/hr 11/27/24 14:15 11/27/24 14:15 IV 15 mls/hr .Q48H ALMA ROSA Administration PFSH Medical History Wears glasses Wears dentures Alcohol use Liver spots Rheumatoid arthritis Restless legs Migraine headache No natural teeth Difficulty swallowing Difficulty chewing Heartburn Gastric reflux Cancer History of echocardiogram History of stress test History of heart attack Stroke/cerebrovascular accident COPD (chronic obstructive pulmonary disease) Smoker Rhabdomyolysis Hyponatremia Fall Debility T12 compression fracture Recurrent falls Thrombocytopenia Alcohol abuse Home Medications ?Medication ?Instructions ?Recorded ?Last Taken ?Type folic acid 1 mg tablet 1 mg PO DAILYCM 30 days #30 tabs 09/13/23 Unknown Rx nicotine 21 mg/24 hr daily 21 mg transdermal DAILY 30 days 09/13/23 Unknown Rx transdermal patch #30 ea thiamine HCl (vitamin B1) 100 mg 100 mg PO DAILY 30 days #30 tabs 09/13/23 Unknown Rx tablet (Vitamin B-1) cyclobenzaprine 10 mg tablet 10 mg PO TID PRN Muscle Spasm #15 07/02/24 Unknown Rx TABLETS gabapentin 800 mg tablet 800 mg PO TID 07/02/24 Unknown History lidocaine 5 % topical patch 1 patch topical DAILY 5 days #5 ea 07/02/24 Unknown Rx (Lidoderm) Allergy/AdvReac Type Severity Reaction Status Date / Time No Known Allergies Allergy Verified 11/27/24 14:15 Surgical History (Updated 11/27/24 @ 14:33 by Jihan Amanda) History of colonoscopy History of hand surgery History of lumpectomy of both breasts History of vasectomy History of cardiac catheterization Social History (Updated 09/21/24 @ 12:48 by Karolina Barber LPN) household members: none Smoking Status: Current every day smoker tobacco type: cigars quit status: not considering quitting alcohol intake: current Alcohol type: beer details: 12 beers daily. substance use type: does not use Review of Systems (Anesthesia) ROS Narrative System reviewed and no additional complaints, except as documented.
[2024-11-27] MEDS: Ipratropium/Albuterol Sulfate 3 ML AMPUL.NEB INHALATION (16:00)
--- NOTE | 2024-11-27 16:43 | PCM.HP.STD ---
[facility] - General General Date of Admission: 11/27/24 Date of Service: 11/27/24 Chief Complaint: Abdominal pain , weight loss and chronic pancreatitis HPI Narrative JULI DAVIDSON, is a 64 M who presents for the evaluation of abdominal pain weight loss and chronic pancreatitis. Pt referred to [facility] from his PCP Dr. Honeycutt for chronic pancreatitis. Pt has complaints of daily abd pain that radiates all over. It is not specifically in the epigastric region. He has nausea 2-3x per week but does not vomit. He has alternating bowels with constipation and loose stools. He notes having a colonoscopy many years ago. He continues to smoke and states I will stop when I . He denies any alcohol use. [facility] Medical History Wears glasses Wears dentures Alcohol use Liver spots Rheumatoid arthritis Restless legs Migraine headache No natural teeth Difficulty swallowing Difficulty chewing Heartburn Gastric reflux Cancer History of echocardiogram History of stress test History of heart attack Stroke/cerebrovascular accident COPD (chronic obstructive pulmonary disease) Smoker Rhabdomyolysis Hyponatremia Fall Debility T12 compression fracture Recurrent falls Thrombocytopenia Alcohol abuse Home Medications ?Medication ?Instructions ?Recorded ?Last Taken ?Type folic acid 1 mg tablet 1 mg PO DAILYCM 30 days #30 tabs 09/13/23 Unknown Rx nicotine 21 mg/24 hr daily 21 mg transdermal DAILY 30 days 09/13/23 Unknown Rx transdermal patch #30 ea thiamine HCl (vitamin B1) 100 mg 100 mg PO DAILY 30 days #30 tabs 09/13/23 Unknown Rx tablet (Vitamin B-1) cyclobenzaprine 10 mg tablet 10 mg PO TID PRN Muscle Spasm #15 07/02/24 Unknown Rx TABLETS gabapentin 800 mg tablet 800 mg PO TID 07/02/24 Unknown History lidocaine 5 % topical patch 1 patch topical DAILY 5 days #5 ea 07/02/24 Unknown Rx (Lidoderm) Allergy/AdvReac Type Severity Reaction Status Date / Time No Known Allergies Allergy Verified 11/27/24 14:15 Surgical History History of colonoscopy History of hand surgery History of lumpectomy of both breasts History of vasectomy History of cardiac catheterization Social History household members: none Smoking Status: Current every day smoker (Patient smoked today.) tobacco type: cigars quit status: not considering quitting alcohol intake: current Alcohol type: beer details: 12 beers daily. substance use type: does not use ROS Constitutional Constitutional: Denies fatigue, fever(s), poor appetite, weight gain or weight loss Gastrointestinal Gastrointestinal: Denies belching, bloating, change in bowel habits, change in stool character, chewing difficulty, coffee ground emesis, constipation, cramping, diarrhea, dyspepsia, dysphagia, early satiety, excessive flatus, fecal incontinence, heartburn, hematemesis, hematochezia, hemorrhoids, loose stools, melena, nausea, odynophagia, rectal bleeding, tenesmus, vomiting or weight changes Vital Signs Vital Signs Vital Signs: 11/27/24 14:34 11/27/24 14:35 11/27/24 15:49 Temperature 98.3 F 98.3 F Temperature Source Temporal Pulse Rate 93 93 Respiratory Rate 16 16 Respiratory Pattern Normal Blood Pressure 133/87 H 133/87 H Blood Pressure Mean 102 Blood Pressure Source Monitor Blood Pressure Position Semi-Fowlers Blood Pressure Location Left Arm Pulse Ox 95 95 Oxygen Delivery Method Room Air Room Air Weight Weight: 196 lb 12.8 oz Body Mass Index (BMI) 24.5 Physical Exam Const alert, oriented x3, no apparent distress and healthy appearing General Appearance: cooperative GI normal to inspection, nondistended, normoactive bowel sounds, soft to palpation, non-tender and non-distended Percussion: normal to percussion Rectal Exam: deferred Assessment & Plan Assessment/Plan (1) Chronic pancreatitis: (2) Severe malnutrition: PLAN: Assessment and Plan Assessment and Plan (1) Chronic pancreatitis: Status: Chronic Plan: This is a 64 yo male pt with PMHx of alcohol abuse with recent diagnosis of chronic pancreatitis. He is here today for evaluation. He has daily diffuse abd pain, alternating bowels and nausea. He notes having a colonoscopy many years ago. He will undergo EGD and colonoscopy to evaluation his GI tract. I will order stool testing for EPI. I provided pt with samples of creon to take before he eats. -Colonoscopy and EGD -Trial Creon -Stool test for EPI Orders: Orders Pancreatic Elastase, Fecal Today K86.1 - Other chronic pancreatitis
--- NOTE | 2024-11-27 17:09 | PCM.POST.ANE ---
Anesthesia: Postop Eval I Current Vital Signs Temperature: 97.9 F Pulse Rate: 90 Blood Pressure: 116/67 Respiratory Rate: 16 Pulse Ox: 97 Assessment Airway patent: Yes Spontaneous unlabored respirations: Yes nausea: No Vomiting: No Anesthesia Complication: No Fluid Hydration Crystalloid volume administer (ml): 700 Total IV fluid infused: 700 Progress Note Anesthesia document: Postop Eval 1 completed: Yes
--- NOTE | 2024-11-27 17:27 | OP.EGD_ITS ---
Patient Name: Lavelle Womack Procedure Date: 11/27/2024 4:43 PM Date of : 1960 Age: 64 Procedure: Upper GI endoscopy Indications: Epigastric abdominal pain, Functional Dyspepsia, Indigestion, Heartburn Providers: Kiko Almanzar DO Referring MD: Elgin Honeycutt MD Medicines: Monitored Anesthesia Care Patient Profile: This is a 64 year old male. Refer to note in patient chart for documentation of history and physical. Patient has symptoms of acute abdominal cramping, acute abdominal distention, chronic epigastric abdominal pain and chronic dyspepsia. Complications: No immediate complications. Procedure: Pre-Anesthesia Assessment: - Prior to the procedure, a History and Physical was performed, and patient medications and allergies were reviewed. The patient is competent. The risks and benefits of the procedure and the sedation options and risks were discussed with the patient. All questions were answered and informed consent was obtained. Patient identification and proposed procedure were verified by the physician in the pre-procedure area. Mental Status Examination: alert and oriented. Airway Examination: normal oropharyngeal airway and neck mobility. Respiratory Examination: clear to auscultation. CV Examination: normal. Prophylactic Antibiotics: The patient does not require prophylactic antibiotics. Prior Anticoagulants: The patient has taken Coumadin (warfarin), last dose was 12 days prior to procedure. ASA Grade Assessment: I - A normal, healthy patient. After reviewing the risks and benefits, the patient was deemed in satisfactory condition to undergo the procedure. The anesthesia plan was to use minimal sedation / analgesia (anxiolysis). Immediately prior to administration of medications, the patient was re-assessed for adequacy to receive sedatives. The heart rate, respiratory rate, oxygen saturations, blood pressure, adequacy of pulmonary ventilation, and response to care were monitored throughout the procedure. The physical status of the patient was re-assessed after the procedure. The gastroscope was introduced through the mouth, and advanced to the third part of the duodenum. Small bowel enteroscopy was deemed necessary. The upper GI endoscopy was accomplished without difficulty. The patient tolerated the procedure well. Scope In: 4:57:54 PM Scope Out: 5:00:31 PM Total Procedure Duration Time 0 hours 2 minutes 37 seconds Findings: No gross lesions were noted in the entire esophagus. A hiatal hernia was present. No gross lesions were noted in the entire examined stomach. Patchy mildly erythematous mucosa without active bleeding and with no stigmata of bleeding was found in the duodenal bulb. Biopsies were taken with a cold forceps for histology. Verification of patient identification for the specimen was done. Estimated blood loss was minimal. Impression: - No gross lesions in the entire esophagus. - Hiatal hernia. - No gross lesions in the entire stomach. - Erythematous duodenopathy. Biopsied. Recommendation: - Discharge patient to home. - Resume previous diet. - Continue present medications. - Await pathology results. Procedure Code(s): --- Professional --- 00419, Small intestinal endoscopy, enteroscopy beyond second portion of duodenum, not including ileum; with biopsy, single or multiple CPT copyright 2021 [employer]. All rights reserved. The codes documented in this report are preliminary and upon excellence specialist review may be revised to meet current compliance requirements. Kiko Almanzar DO 11/27/2024 5:26:40 PM This report has been signed electronically. Number of Addenda: 0 Note Initiated On: 11/27/2024 4:43 PM
--- NOTE | 2024-11-27 17:27 | OP.CCLET_ITS ---
11/27/2024 Elgin Honeycutt MD [address] [place] [address] Re : Upper GI endoscopy procedure for Lavelle Womack Dear Dr. Honeycutt This procedure was performed on Wednesday, November 27, 2024. My impressions and recommendations are as follows: Impressions : - No gross lesions in the entire esophagus. - Hiatal hernia. - No gross lesions in the entire stomach. - Erythematous duodenopathy. Biopsied. Recommendations : - Discharge patient to home. - Resume previous diet. - Continue present medications. - Await pathology results. My findings are described in the full procedure note, which is enclosed. If I can be of further assistance, please feel free to contact me at . Sincerely, Kiko Almanzar, 11/27/2024 5:26:40 PM This report has been signed electronically.
--- NOTE | 2024-11-27 20:23 | POSTOPAN2_ITS ---
Anesthesia Postop Eval I Sum Postop Eval Completion status Anesthesia document: Postop Eval 1 completed: Yes Anesthesia Postop Eval I Summary Anesthesia Postop Eval I Summary: Anesthesia Postop Eval I: Assessment Summary Airway patent Yes 11/27/24 17:09 [email or web address] Spontaneous unlabored Yes 11/27/24 17:09 COUNTRY [email or web address] respirations Mental status nausea No 11/27/24 17:09 COUNTRY [email or web address] Vomiting No 11/27/24 17:09 COUNTRY [email or web address] Anesthesia Postop Eval I: Fluid Summary Crystalloid volume administer 700 11/27/24 17:09 COUNTRY [email or web address] (ml) Colloids volume administered ( ml) Blood Product volume administered (ml) Total IV fluid infused 700 11/27/24 17:09 COUNTRY [email or web address] Anesthesia Postop Eval I: Summary Notes Anesthesia Complication No 11/27/24 17:09 COUNTRY [email or web address] Anesthesia Complication Comment: Post-operative progress note Anesthesia: Postop Eval II Evaluation Mental status: Awake and Calm Pain Level: 0 nausea: No Vomiting: No Complications Anesthesia Complication: No
--- NOTE | 2024-11-27 20:23 | PCM.POSTANE2 ---
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 Spontaneous unlabored Yes 11/27/24 17:09 POWER GENERATION [email or web address] respirations Mental status nausea No 11/27/24 17:09 POWER GENERATION [email or web address] Vomiting No 11/27/24 17:09 POWER GENERATION [email or web address] Anesthesia Postop Eval I: Fluid Summary Crystalloid volume administer 700 11/27/24 17:09 POWER GENERATION [email or web address] (ml) Colloids volume administered ( ml) Blood Product volume administered (ml) Total IV fluid infused 700 11/27/24 17:09 POWER GENERATION [email or web address] Anesthesia Postop Eval I: Summary Notes Anesthesia Complication No 11/27/24 17:09 POWER GENERATION [email or web address] Anesthesia Complication Comment: Post-operative progress note Anesthesia: Postop Eval II Evaluation Mental status: Awake and Calm Pain Level: 0 nausea: No Vomiting: No Complications Anesthesia Complication: No
== END | disposition home or self-care (01) ==
PROVIDERS: PCP Family Medicine Geriatric Medicine; Referring Provider Family Medicine Geriatric Medicine; Visit Provider Internal Medicine Gastroenterology
PROC: 0DJ08ZZ Inspection of Upper Intestinal Tract, Via Natural or Artificial Opening Endoscopic (ICD-10-PCS; CPT 43235; principal; 2024-11-27 15:10)
DX: K44.9 Diaphragmatic hernia without obstruction or gangrene (principal); K86.1 Other chronic pancreatitis; J44.9 Chronic obstructive pulmonary disease, unspecified; F17.200 Nicotine dependence, unspecified, uncomplicated; E43 Unspecified severe protein-calorie malnutrition; K21.9 Gastro-esophageal reflux disease without esophagitis
CPT/HCPCS: 43239; 88305

== ENCOUNTER → 2025-01-22 | Outpatient (CLI) | payer MEDICARE, SELFPAY ==
--- NOTE | 2025-01-22 09:59 | RAD_ITS ---
EXAM: XR Lumbosacral Spine, 2 or 3 Views CLINICAL INDICATION: LUMBAR RADICULOPATHY TECHNIQUE: Frontal and lateral views of the lumbar spine and sacrum. COMPARISON: No relevant prior studies available. FINDINGS: VERTEBRAE: Moderate compression deformity of T12 vertebral body status post vertebroplasty. Mild facet arthropathy of L for the S1. Normal alignment. SACRUM/COCCYX: Unremarkable as visualized. No acute fracture. DISC SPACES: No acute findings. No significant narrowing. SOFT TISSUES: Unremarkable. VASCULATURE: Scattered calcified atherosclerotic disease of aorta. RAD/Lumbar Spine 2 or 3 Views IMPRESSION: 1. Postoperative changes as above. 2. Degenerative changes as above. Reading Location: [facility]
== END | disposition home or self-care (01) ==
LOC: RAD 09:59
PROVIDERS: Referring Provider Anesthesiology; Visit Provider Anesthesiology
DX: M54.16 Radiculopathy, lumbar region (principal)
CPT/HCPCS: 72100

== ENCOUNTER 2025-02-03 02:53 | Emergency (ER) | payer MEDICARE, SELFPAY ==
[2025-02-03 02:54] VITALS: BP 117/77; PULSE 85; RESP 18; TEMP 36.4; O2SAT 97; BMI 25.6
--- NOTE | 2025-02-03 03:13 | CT_ITS ---
PROCEDURE: SPINE CERVICAL WITHOUT CONTRAS 02/03/2025 REASON FOR EXAM: INJURY TECHNIQUE: SPINE CERVICAL WITHOUT CONTRAS Coronal and Sagittal reconstruction series were provided. One or more dose reduction techniques were used (e.g., Automated exposure control, adjustment of the mA and/or kV according to patient size, use of iterative reconstruction technique. COMPARISON: No FINDINGS: Cervical spine scoliosis and degeneration. No acute fracture or dislocation. No soft tissue injury. No apical pneumothorax. Apical emphysema. Ossified stylohyoid ligaments. CT/Spine Cervical without Contras IMPRESSION: No acute injury Reading Location: [place] [id number]
--- NOTE | 2025-02-03 03:13 | CT_ITS ---
PROCEDURE: SINUS/FACIAL BONE 02/03/2025 REASON FOR EXAM: INJURY TECHNIQUE: SINUS/FACIAL BONE Coronal and Sagittal reconstruction series were provided. One or more dose reduction techniques were used (e.g., Automated exposure control, adjustment of the mA and/or kV according to patient size, use of iterative reconstruction technique). COMPARISON: No FINDINGS: No facial fracture or dislocation. Right anterior scalp laceration and small hematoma. Status post bilateral lens extraction. No orbital soft tissue injury. CT/Sinus/Facial Bone IMPRESSION: Anterior scalp laceration. Reading Location: [place] [address]
--- NOTE | 2025-02-03 03:13 | CT_ITS ---
PROCEDURE: BRAIN/HEAD WITHOUT CONTRAST 02/03/2025 REASON FOR EXAM: INJURY TECHNIQUE: BRAIN/HEAD WITHOUT CONTRAST Coronal and Sagittal reconstruction series were provided. One or more dose reduction techniques were used (e.g., Automated exposure control, adjustment of the mA and/or kV according to patient size, use of iterative reconstruction technique. RADIATION DOSE SUMMARY: CTDlvol: 45 mGy DLP: 864 mGycm COMPARISON: 07/30/2024 FINDINGS: Diffuse atrophy. No acute abnormal brain densities. No intracranial hemorrhage. No hydrocephalus or midline shift. No acute skull pathology. Bilateral lens extraction. Right anterior scalp laceration and small hematoma. CT/Brain/Head without Contrast IMPRESSION: No acute intracranial findings Reading Location: [facility]
[2025-02-03] MEDS: Lidocaine 1% (20 ml mdv) 20 ML Vial INFILT (03:21)
--- OUTSIDE RECORDS SUMMARY | 2025-02-03 04:47 | XMS RPT_ITS | CCD ---
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 Ida Blanca Emergency Provider [phone] Care Physician, No Primary Primary Care Provider Unavailable Dr. Jarret Romero Admit Provider Dr. Jarret Romero Attending Provider Dr. Jarret Romero Other Provider Dr. Anu Wong Attending Provider Dr. Anu Wong Other Provider Dr. Kennedy Echeverria Other Provider Dr. Ida Blanca Emergency Provider Care Physician, No Primary Primary Care Provider Unavailable Dr. Jarret Romero Admit Provider Dr. Jarret Romero Attending Provider Dr. Jarret Romero Other Provider Dr. Anu Wong Attending Provider Dr. Anu Wong Other Provider Dr. Kennedy Echeverria Other Provider [phone] Yinka ADHIKARI, Dr. Elgin Monson Primary Care Provider Dr. Jesse Mak DO Attending Provider Dr. Jesse Mak DO Emergency Provider Yinka ADHIKARI, Dr. Elgin Monson Attending Provider Yinka ADHIKARI, Dr. Elgin Monson Referring Provider Yinka ADHIKARI, Dr. Elgin Monson Other Provider [phone] Marie ADHKIARI, Dr. Thompson Attending Provider Blaire Cruz Attending Provider Vicky ADHIKARI, Dr. Win Attending Provider Vicky ADHIKARI, Dr. Win Referring Provider [phone] Yinka ADHIKARI, Dr. Elgin Monson Primary Care Provider [phone] Yinka ADHIKARI, Dr. Elgin Monson Attending Provider Yinka ADHIKARI, Dr. Elgin Monson Primary Care Provider [phone] Yinka ADHIKARI, Dr. Elgin Monson Attending Provider [phone] Yinka ADHIKARI, Dr. Elgin Monson Referring Provider Penny ADHIKARI, Dr. Ji Starkey Attending Provider Jenelle DICKINSON, Dr. Hoover Attending Provider Jenelle DICKINSON, Dr. Hoover Other Provider [phone] Yinka ADHIKARI, Dr. Elgin Monson Primary Care Provider [phone] Yinka ADHIKARI, Dr. Elgin Monson Attending Provider Yinka ADHIKARI, Dr. Elgin Monson Referring Provider Care Physician, No Primary Primary Care Provider Unavailable Vicky ADHIKARI, Dr. Win Attending Provider [phone] Vicky ADHIKARI, Dr. Win Referring Provider Yinka, Elgin Chi Primary Care Unavailable Yinka, Elgin Chi Referring Unavailable Yinka, Elgin Chi Attending Unavailable Quirino Perry Referring Unavailable Quirino Perry Attending Unavailable Yinka, Elgin Chi Primary Care Unavailable Yinka, Elgin Chi Referring Unavailable Yinka, Elgin Chi Primary Care Unavailable Blaire Smalls Attending Unavailable Yinka, Elgin Chi Primary Care Unavailable Yinka, Elgin Chi Attending Unavailable Yinka, Elgin Chi Referring Unavailable Yinka, Elgin Chi Primary Care Unavailable Yinka, Elgin Chi Attending Unavailable Yinka, Elgin Chi Primary Care Unavailable Jesse Mak Attending Unavailable Yinka, Elgin Chi Consulting Unavailable Yinka, Elgin Chi Referring Unavailable Donna Salazar Attending Unavailable Yinka, Elgin Chi Primary Care Unavailable Friend, Kiko Attending Unavailable Yinka, Elgin Chi Primary Care Unavailable Yinka, Elgni Chi Referring Unavailable Yinka, Elgin Chi Referring Unavailable Yinka, Elgin Chi Primary Care Unavailable Yinka, Elgin Chi Attending Unavailable Yinka, Elgin Chi Primary Care Unavailable Yinka, Eglin Chi Referring Unavailable Yinka, Elgin Chi Attending Unavailable Yinka, Elgin Chi Primary Care Unavailable Yinka, Elgin Chi Referring Unavailable Yinka, Elgin Chi Attending Unavailable Yinka, Elgin Chi Primary Care Unavailable Yinak, Elgin Chi Attending Unavailable Yinka, Elgin Chi Attending Unavailable Yinka, Elgin Chi Primary Care Unavailable Yinka, Elgin Chi Referring Unavailable Prayson, Quirino Referring Unavailable Prayson, Quirino Attending Unavailable Care Physician, No Primary Primary Care Unava ilable Yinka, Elgin Chi Primary Care Unavailable Yinka, Elgin Chi Attending Unavailable Yinka, Elgin Chi Attending Unavailable Yinka, Elgin Chi Primary Care Unavailable Friend, Kiko Attending Unavailable Friend, Kiko Consulting Unavailable Yinka, Elgin Chi Primary Care Unavailable Yinka, Elgin Chi Referring Unavailable Prayson, Quirino Referring Unavailable Prayson, Quirino Attending Unavailable Yinka, Elgin Chi Primary Care Unavailable Allergies Allergy Classification Reported Allergen(s) Allergy Type Date of Onset Reaction(s) Facility (3 sources) NSAIDs; Translations: [NSAIDs] Drug allergy Stomach ache (finding) [facility] Work Phone: (3 sources) Sulfonamides (Antibiotic); Translations: [sulfa drugs] Drug allergy Stomach ache (finding) [facility] Work Phone: Medications Current Medications Medication [...] BID, # 3 EA, 1 Refill(s), Pharmacy: [id number], COPD without exacerbation, 190, cm, 10/13/21 11:37:00 EDT, Height, kg, 10/13/21 11:33:00 EDT, Dosing Weight Start Date: 10/13/21 Stop Date: 04/11/22 Status: Ordered Start: 05-26-2021 End: 11-22-2021 take 1 dose by inhalation twice daily budesonide-formoterol 160 mcg-4.5 mcg/inh Inhaler Dose = 2 puff(s), Inhalation, BID, # 3 EA, 1 Refill(s), Pharmacy: [facility], COPD without exacerbation, 184.5, cm, 05/26/21 9:13:00 EST, Height, kg, 05/26/21 9:13:00 EST, Dosing Weight Start Date: 05/26/21 Stop Date: 11/22/21 Status: Ordered cholecalciferol 1.25 mg oral capsule (3 sources) Vitamin D Start: 09-22-2021 End: 06-19-2022 cholecalciferol 1250 mcg (50,000 intl units) oral capsule Dose : 50,000 International_Unit = 1 cap(s), Oral, qWeek, # 13 cap(s), 2 Refill(s), Pharmacy: [facility], Vitamin D deficiency, 190, cm, 09/22/21 8:19:00 EDT, Height, kg, 09/22/21 8:19:00 EDT, Dosing Weight Start Date: 09/22/21 Stop Date: 06/19/22 Status: Ordered Start: 06-23-2021 End: 03-20-2022 cholecalciferol 1250 mcg (50 ,000 intl units) oral capsule Dose : 50,000 International_Unit = 1 cap(s), Oral, every other week, # 7 cap(s), 2 Refill(s), Pharmacy: [facility], Vitamin D deficiency, 184.5, cm, 06/23/21 8:01:00 EST, Height, kg, 06/23/21 8:01:00 EST, Dosing Weight Start Date: 06/23/21 Stop Date: 03/20/22 Status: Ordered citalopram 20 mg oral tablet (4 sources) Serotonin Reuptake Inhibitor Start: 06-23-2021 End: 03-21-2022 citalopram 20 mg oral tablet Dose : 20 mg = 1 tab(s), Oral, qDay, # 90 tab(s), 1 Refill(s), Pharmacy: [facility], 190, cm, 09/22/21 8:19:00 EDT, Height, kg, 09/22/21 8:19:00 EDT, Dosing Weight Start Date: 09/22/21 Stop Date: 03/21/22 Status: Ordered Start: 05-26-2021 End: 11-22-2021 citalopram 10 mg oral tablet Dose : 10 mg = 1 tab(s), Oral, qDay, # 90 tab(s), 1 Refill(s), Pharmacy: [facility], RADHA (generalized anxiety disorder), 184.5, cm, 05/26/21 9:13:00 EST, Height, kg, 05/26/21 9:13:00 EST, Dosing Weight Start Date: 05/26/21 Stop Date: 11/22/21 Status: Ordered cyclobenzaprine hydrochloride 10 mg oral tablet (7 sources) Muscle Relaxant Start: 07-02-2024 take 1 tablet by mouth three times daily as needed for muscle spasms Cyclobenzaprine 10 mg tablet Active 10 mg PO THREE TIMES A DAY as needed for Muscle Spasm 15 0 July 02, 2024 1:00am folic acid 1 mg oral tablet (20 sources) Start: 09-05-2023 End: 09-13-2023 take 1 tablet by mouth once daily at mealtime Folic Acid 1 mg Tablet Active 1 mg PO DAILY WITH MEALS 30 September 13, 2023 12:00am gabapentin 800 mg oral tablet (20 sources) Anti-epileptic Agent Start: 07-02-2024 take 1 tablet by mouth three times daily Gabapentin 800 mg tablet Active 800 mg PO THREE TIMES A DAY July 02, 2024 1:00am Start: 09-13-2023 End: 07-02-2024 take 2 capsules by mouth three times daily at mealtime Gabapentin 400 mg Capsule Discontinued 800 mg PO 3 TIMES DAILY WITH MEALS 180 30 September 13, 2023 12:00am July 02, 2024 10:42am Start: 09-13-2023 take 800 mg by mouth three times daily at mealtime Gabapentin Active 800 MG PO 3 TIMES DAILY WITH MEALS 180 September 13, 2023 12:00am Start: 09-22-2021 End: 03-21-2022 gabapentin 800 mg oral table t Dose : 800 mg = 1 tab(s), Oral, TID, # 270 tab(s), 1 Refill(s), Pharmacy: [facility], Neuropathic pain, leg: Chronic, 190, cm, 09/22/21 8:19:00 EDT, Height, 79, kg, 09/22/21 8:19:00 EDT, Dosing Weight Start Date: 09/22/21 Stop Date: 03/21/22 Status: Ordered Start: 05-26-2021 End: 08-24-2021 gabapentin 800 mg oral table t Dose : 800 mg = 1 tab(s), Oral, TID, # 270 tab(s), 0 Refill(s), Pharmacy: [facility], Neuropathic pain, leg: Chronic, 184.5, cm, 05/26/21 9:13:00 EST, Height, 76.6, kg, 05/26/21 9:13:00 EST, Dosing Weight Start Date: 05/26/21 Stop Date: 08/24/21 Status: Ordered hydroCHLOROthiazide 12.5 mg oral capsule (4 sources) Thiazide Diuretic Start: 05-26-2021 End: 03-21-2022 hydroCHLOROthiazide 12.5 mg oral capsule Dose : 12.5 mg = 1 cap(s), Oral, qDay, # 90 cap(s), 1 Refill(s), Pharmacy: [facility], HTN, goal below 140/90, 190, cm, 09/22/21 8:19:00 EDT, Height, kg, 09/22/21 8:19:00 EDT, Dosing Weight Start Date: 09/22/21 Stop Date: 03/21/22 Status: Ordered lidocaine 0.05 mg/mg medicated patch (7 sources) Antiarrhythmic , Amide Local Anesthetic Start: 07-02-2024 Lidocaine (Lidoderm) 5 % adhesive patch,medicated Active 1 NMA TOPICAL DAILY 5 5 0 July 02, 2024 1:00am leave on most painful area for up to 12 hrs 24 hr nicotine 0.875 mg/hr transdermal system (20 sources) Cholinergic Nicotinic Agonist Start: 09-05-2023 End: 09-13-2023 apply 1 dose transdermal route every twenty-four hours Nicotine 21 mg/24 hr Patch 24 Hour Active 21 mg TD DAILY 30 30 0 September 13, 2023 12:00am Start: 09-05-2023 End: 09-13-2023 Nicotine Active 21 MG TD SAMUEL LY 30 September 13, 2023 12:00am pantoprazole 40 mg delayed release oral tablet (5 sources) Proton Pump Inhibitor Start: 11-27-2024 take 1 tablet by mouth twice daily Pantoprazole 40 mg tablet,delayed release (DR/EC) Active 40 mg PO TWICE A DAY 60 November 27, 2024 12:00am Start: 05-26-2021 End: 11-22-2021 pantoprazole 40 mg oral ente taylor coated tablet Dose : 40 mg = 1 tab(s), Oral, qDayAC, # 90 tab(s), 1 Refill(s), Pharmacy: [facility], GERD (gastroesophageal reflux disease), 184.5, cm, 05/26/21 9:13:00 EST, Height, kg, 05/26/21 9:13:00 EST, Dosing Weight Start Date: 05/26/21 Stop Date: 11/22/21 Status: Ordered propranolol hydrochloride 20 mg oral tablet (1 source) beta-Adrenergic Nicko Start: 10-13-2021 End: 12-12-2021 propranolol 20 mg oral tablet Dose : 20 mg = 1 tab(s), Oral, BID, # 180 tab(s), 1 Refill(s), Pharmacy: [facility], 190, cm, 10/13/21 11:37:00 EDT, Height, kg, 10/13/21 11:33:00 EDT, Dosing Weight Start Date: 10/13/21 Stop Date: 12/12/21 Status: Ordered rosuvastatin 40 mg oral capsule (3 sources) HMG-CoA Reductase Inhibitor Start: 06-23-2021 End: 12-20-2021 rosuvastatin 40 mg oral capsule Dose : 40 mg = 1 cap(s), Oral, qDay, # 90 cap(s), 1 Refill(s), Pharmacy: [facility], 184.5, cm, 12/21/21 8:01:00 EST, Height, kg, 06/23/21 8:01:00 EST, Dosing Weight Start Date: 06/23/21 Stop Date: 12/20/21 Status: Ordered Start: 05-26-2021 End: 11-22-2021 rosuvastatin 20 mg oral tabl et Dose : 20 mg = 1 tab(s), Oral, Daily, # 90 tab(s), 1 Refill(s), Pharmacy: [facility], Hyperlipidemia LDL goal Start Date: 05/26/21 Stop Date: 11/22/21 Status: Ordered sucralfate 1000 mg oral tablet (2 sources) Aluminum Complex Start: 11-27-2024 take 1 tablet by mouth twice daily Sucralfate (Carafate) 1 gram tablet Active 1 g PO TWICE A DAY 60 November 27, 2024 12:00am thiamine 100 mg oral tablet (20 sources) Start: 09-05-2023 End: 09-13-2023 take 1 tablet by mouth once daily Thiamine Hcl (Vitamin B1) (Vitamin B-1) 100 mg Tablet Active 100 mg PO DAILY 30 September 13, 2023 12:00am traMADol hydrochloride 50 mg oral tablet (1 source) Opioid Agonist Start: 09-22-2021 End: 10-22-2021 traMADol 50 mg oral tablet Dose : 50 mg = 1 tab(s), Oral, TID, PRN as needed for pain, Fill Date: 09/22/2021, # 90 tab(s), 0 Refill(s), Pharmacy: [facility], Chronic pain syndrome Chronic headache disorder, 190, cm, 09/22/21 8:19:00 EDT, Height, 79, kg, 09/22/21 8:... Start Date: 09/22/21 Stop Date: 10/22/21 Status: Ordered Trelegy Ellipta 100 mcg-62.5 mcg-25 mcg/inh inhalation powder (1 source) Start: 10-13-2021 Trelegy Ellipt a 100 mcg-62.5 mcg-25 mcg/inh inhalation powder 0 Refill(s) Start Date: 10/13/21 Status: Ordered ubrogepant 100 mg oral tablet (2 sources) Start: 08-20-2021 Ubrelvy 100 mg oral tablet 0 Refill(s) Start Date: 08/20/21 Status: Ordered Completed/Discontinued Medications Medication Drug Class(es) Dates Sig (Normalized) Sig (Original) acetaminophen 500 mg oral tablet (15 sources) Start: 09-05-2023 End: 09-13-2023 Acetaminophen 500 mg Tablet Discontinued 500 mg PO EVERY 4 HOURS NEEDED as needed for Pain 1-10 or Temp > 100.4 F 0 0 September 05, 2023 1:00am September 13, 2023 7:53am Start: 09-05-2023 End: 09-13-2023 take 500 mg by mouth every four hours as needed Acetaminophen Discontinued 500 MG PO EVERY 4 HOURS NEEDED 0 September 05, 2023 1:00am September 13, 2023 7:53am acetaminophen 325 mg / oxyCODONE hydrochloride 5 mg oral tablet (7 sources) Opioid Agonist Start: 07-02-2024 End: 11-27-2024 Oxycodone-Acetaminophen 5-32 5 mg tablet Discontinued 1 {tbl} PO EVERY 6 HOURS NEEDED as needed for Pain 12 3 0 July 02, 2024 November 27, 2024 2:16pm Acute neck pain Cervicalgia Food Supplemt, Lactose-Reduced (Ensure Plus High Protein) 0.08 gram-1.5 kcal/mL Liquid (15 sources) Start: 09-05-2023 End: 09-13-2023 Food Supplemt, Lactose-Reduc ed (Ensure Plus High Protein) 0.08 gram-1.5 kcal/mL Liquid Discontinued 120 mL PO 3 TIMES DAILY WITH MEALS 0 0 September 05, 2023 1:00am September 13, 2023 7:53am supplement Start: 09-05-2023 End: 09-13-2023 Food Supplemt, Lactose-Reduc ed (Ensure Plus High Protein) 0.08 gram-1.5 kcal/mL Liquid Discontinued 120 mL PO 3 TIMES DAILY WITH MEALS 0 September 05, 2023 1:00am September 13, 2023 7:53am Start: 09-05-2023 End: 09-13-2023 Food Supplemt, Lactose-Reduc ed (Ensure Plus High Protein) 0.08 gram-1.5 kcal/mL Liquid Discontinued 120 ML PO 3 TIMES DAILY WITH MEALS 0 September 05, 2023 1:00am September 13, 2023 7:53am Start: 09-05-2023 Food Supplemt, Lactose-Reduced (Ensure Plus High Protein) 0.08 gram-1.5 kcal/mL Liquid Active 120 ML PO 3 TIMES DAILY WITH MEALS September 05, 2023 12:00am Multivitamin preparation (8 sources) Start: 09-05-2023 End: 09-13-2023 take 1 tablet by mouth at breakfast Multivitamin Discontinued 1 TABLET PO WITH BREAKFAST September 05, 2023 1:00am September 13, 2023 7:53am Start: 09-05-2023 take 1 tablet by chayo th at breakfast Multivitamin Active 1 TABLET PO WITH BREAKFAST 0 September 05, 2023 12:00am Multivitamin Tablet (7 sources) Start: 09-05-2023 End: 09-13-2023 Multivitamin Tablet Disconti nued 1 {tbl} PO WITH BREAKFAST 0 September 05, 2023 1:00am September 13, 2023 7:53am supplement Start: 09-05-2023 End: 09-13-2023 Multivitamin Tablet Disconti nued 1 {tbl} PO WITH BREAKFAST 0 September 05, 2023 1:00am September 13, 2023 7:53am Sennosides (Senna) 8.6 mg Tablet (15 sources) Start: 09-05-2023 End: 09-13-2023 take 1 tablet by mouth at bedtime as needed for constipation Sennosides (Senna) 8.6 mg Tablet Discontinued 8.6 mg PO AT BEDTIME as needed for Constipation 0 September 05, 2023 1:00am September 13, 2023 7:54am Start: 09-05-2023 End: 09-13-2023 take 1 tablet by mouth at bedtime as needed for constipation Sennosides (Senna) 8.6 mg Tablet Discontinued 8.6 mg PO AT BEDTIME as needed for Constipation 0 September 05, 2023 1:00am September 13, 2023 7:54am Start: 09-05-2023 End: 09-13-2023 take 1 tablet by mouth at bedtime Sennosides (Senna) 8 .6 mg Tablet Discontinued 8.6 MG PO AT BEDTIME September 05, 2023 1:00am September 13, 2023 7:54am Start: 09-05-2023 take 1 tablet by mouth at bedt simone Sennosides (Senna) 8.6 mg Tablet Active 8.6 MG PO AT BEDTIME 0 September 05, 2023 12:00am Problems Active Problems Problem Classification Problem Date Documented Da te Episodic/Chronic Abdominal pain (1 source) Unspecified abdominal pain; Translations: [Unspecified abdominal pain] Onset: Episodic Alcohol-related disorders (20 sources) Alcohol abuse; Translations: [Alcohol abuse, uncomplicated] 08-29-2023 Chronic Anxiety disorders (4 sources) Generalized anxiety disorder 05-26-2021 Chronic Chronic obstructive pulmonary disease and bronchiectasis (4 sources) Chronic obstructive lung disease 05-26-2021 Chronic Coagulation and hemorrhagic disorders (16 sources) Thrombocytopenic disorder; Translations: [Thrombocytopenia, unspecified] 08-29-2023 Chronic Coronary atherosclerosis and other heart disease (6 sources) History of myocardial infarction; Translations: [Coronary arteriosclerosis] 05-26-2021 Chronic Disorders of lipid metabolism (5 sources) Hyperlipidemia; Translations: [Hyperlipidemia, unspecified] Onset: 05-26-2021 Chronic E Codes: Fall (20 sources) Fall; Translations: [Unspecified fall, initial encounter] 09-05-2023 Episodic Esophageal disorders (4 sources) Gastroesophageal reflux disease 05-26-2021 Chronic Essential hypertension (6 sources) Hypertensive disorder 05-26-2021 Chronic Fluid and electrolyte disorders (20 sources) Acute hyponatremia; Translations: [Hypo-osmolality and hyponatremia] 08-29-2023 Episodic Headache; including migraine (1 source) Chronic headache disorder 09-22-2021 Episodic Lymphadenitis (4 sources) Hilar lymphadenopathy 05-26-2021 Episodic Malaise and fatigue (20 sources) Asthenia; Translations: [Other malaise] 09-05-2023 Episodic Nonmalignant breast conditions (8 sources) Breast lump; Translations: [Discharge from nipple] 05-26-2021 Episodic Nutritional deficiencies (20 sources) Vitamin D deficiency; Translations: [Nutritional marasmus] Onset: 5 05-26-2021 Chronic Other circulatory disease (4 sources) History of cerebrovascular accident 05-26-2021 Episodic Other connective tissue disease (4 sources) Pain in lower limb 05-26-2021 Episodic Other connective tissue disease (2 sources) Musculoskeletal pain 08-20-2021 Episodic Other connective tissue disease (15 sources) Recurrent falls ; Translations: [Repeated falls] 08-29-2023 Episodic Other connective tissue disease (1 source) Repeated falls; Translations: [History of fall] 09-05-2023 Episodic Other connective tissue disease (14 sources) Rhabdomyolysis; Translations: [Rhabdomyolysis] 09-05-2023 Episodic Other connective tissue disease (7 sources) Rhabdomyolysis; Translations: [Rhabdomyolysis] 09-15-2023 Episodic Other endocrine disorders (1 source) [place]'s syndrome, unspecified; 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, 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 Other fractures (15 sources) Fracture of twelfth thoracic vertebra; Translations: [Wedge compression fracture of T11-T12 vertebra, initial encounter for closed fracture] 08-29-2023 Episodic Other fractures (1 source) Wedge compression fracture of T11-T12 vertebra, initial encounter for closed fracture; Translations: [Closed fracture of dorsal [thoracic] vertebra without mention of spinal cord injury] 09-05-2023 Episodic Other gastrointestinal disorders (4 sources) H/O: abdominal hernia 05-26-2021 Episodic Other liver diseases (4 sources) Liver mass 05-26-2021 Episodic Other liver diseases (20 sources) Enzyme level - finding; Translations: [Elevated transaminase measurement] 08-29-2023 Episodic Other lower respiratory disease (4 sources) H/O: respiratory disease 05-26-2021 Episodic Other lower respiratory disease (2 sources) Dyspnea 08-20-2021 Episodic Other nervous system disorders (1 source) Chronic pain syndrome 09-22-2021 Chronic Other screening for suspected conditions (not mental disorders or infectious disease) (1 source) Encounter for screening for malignant neoplasm of prostate; Translations: [Encounter for screening for malignant neoplasm of prostate] Onset: Episodic Other skin disorders (1 source) Skin lesion 09-22-2021 Episodic Pancreatic disorders (not diabetes) (17 sources) Chronic pancreatitis; Translations: [Other chronic pancreatitis] Onset: 5 09-21-2024 Chronic Paralysis (1 source) Hemiplegia, unspecified affecting left nondominant side; Translations: [Hemiplegia, unspecified affecting left nondominant side] Onset: 5 Chronic Parkinson`s disease (4 sources) Symptomatic parkinsonism 05-26-2021 Chronic Residual codes; unclassified (3 sources) Family history of breast cancer 07-01-2021 Episodic Spondylosis; intervertebral disc disorders; other back problems (9 sources) Neck pain; Translations: [Cervicalgia] Onset: 5 07-10-2024 Episodic Unclassified (4 sources) Patient encounter status 05-26-2021 Unclassified (1 source) Abdominal aortic aneurysm, without rupture, unspecified; Translations: [Abdominal aortic aneurysm, without rupture, unspecified] Onset: 5 Unclassified (1 source) Low back pain, unspecified; Translations: [Low back pain, unspecified] Onset: 5 Past or Other Problems Problem Classification Problem Date Documented Da te Episodic/Chronic Other nervous system disorders (2 sources) Anesthesia of skin; Translations: [Anesthesia of skin] Onset: 09-18-2024 Episodic Other non-traumatic joint disorders (8 sources) Pain in left shoulder; Translations: [Acute pain of left shoulder] Onset: 07-27-2024 07-10-2024 Episodic Pancreatic disorders (not diabetes) (1 source) Acute pancreatitis without necrosis or infection, unspecified; Translations: [Acute pancreatitis without necrosis or infection, unspecified] Onset: 09-04-2024 Episodic Results Test Name Value Interpretation Reference Range Facility Lumbar Spine 2 or 3 Viewson 01-22-2025 Lumbar Spine 2 or 3 Views [facility] [address], [place] [id number] Lumbar Spine 2 or 3 Views MR#: [id number] Acct: [id number] Name: JULI DAVIDSONBY Rep #: [id number] : 1960 M 64 From: Lizzeth Mazariegos MD PCP: Care Physician,No Primary Status: REG CLI Study: Lumbar Spine 2 or 3 Views Date of Exam: Exam# [id number] Ordering Dr: Quirino Perry MD EXAM: XR Lumbosacral Spine, 2 or 3 Views CLINICAL INDICATION: LUMBAR RADICULOPATHY TECHNIQUE: Frontal and lateral views of the lumbar spine and sacrum. COMPARISON: No relevant prior studies available. FINDINGS: VERTEBRAE: Moderate compression deformity of T12 vertebral body status post vertebroplasty. Mild facet arthropathy of L for the S1. Normal alignment. SACRUM/COCCYX: Unremarkable as visualized. No acute fracture. DISC SPACES: No acute findings. No significant narrowing. SOFT TISSUES: Unremarkable. VASCULATURE: Scattered calcified atherosclerotic disease of aorta. RAD/Lumbar Spine 2 or 3 Views IMPRESSION: 1. Postoperative changes as above. 2. Degenerative changes as above. Reading Location: [facility] CC: Dr. Quirino Perry MD; No Primary Care Physician Foxing Closer: Signed Normal [facility] Surgical pathology reportOrd ered By: Renettacherry Tellez on 12-03-2024 Surgical pathology study [facility] EGD Reporton 11-27-2024 EGD Report [facility] Medical Records Department [address] [place] [id number] EGD Report MR#: [id number] Acct: [id number] Name: JULI DAVIDSON Rep #: [id number] : 1960 64 From: Kiko Almanzar DO PCP: Dr. Elgin Honeycutt MD Status:REG [facility] Patient Name: Juli Davidson Procedure Date: 11/27/2024 4:43 PM Date of : 1960 Age: 64 Procedure: Upper GI endoscopy Indications: Epigastric abdominal pain, Functional Dyspepsia, Indigestion, Heartburn Providers: Kiko Almanzar DO Referring MD: Elgin Honeycutt MD Medicines: Monitored Anesthesia Care Patient Profile: This is a 64 year old male. Refer to note in patient chart for documentation of history and physical. Patient has symptoms of acute abdominal cramping, acute abdominal distention, chronic epigastric abdominal pain and chronic dyspepsia. Complications: No immediate complications. Procedure: Pre-Anesthesia Assessment: - Prior to the procedure, a History and Physical was performed, and patient medications and allergies were reviewed. The patient is competent. The risks and benefits of the procedure and the sedation options and risks were discussed with the patient. All questions were answered and informed consent was obtained. Patient identification and proposed procedure were verified by the physician in the pre-procedure area. Mental Status Examination: alert and oriented. Airway Examination: normal oropharyngeal airway and neck mobility. Respiratory Examination: clear to auscultation. CV Examination: normal. Prophylactic Antibiotics: The patient does not require prophylactic antibiotics. Prior Anticoagulants: The patient has taken Coumadin (warfarin), last dose was 12 days prior to procedure. ASA Grade Assessment: I - A normal, healthy patient. After reviewing the risks and benefits, the patient was deemed in satisfactory condition to undergo the procedure. The anesthesia plan was to use minimal sedation / analgesia (anxiolysis). Immediately prior to administration of medications, the patient was re-assessed for adequacy to receive sedatives. The heart rate, respiratory rate, oxygen saturations, blood pressure, adequacy of pulmonary ventilation, and response to care were monitored throughout the procedure. The physical status of the patient was re-assessed after the procedure. The gastroscope was introduced through the mouth, and advanced to the third part of the duodenum. Small bowel enteroscopy was deemed necessary. The upper GI endoscopy was accomplished without difficulty. The patient tolerated the procedure well. Scope In: 4:57:54 PM Scope Out: 5:00:31 PM Total Procedure Duration Time 0 hours 2 minutes 37 seconds Findings: No gross lesions were noted in the entire esophagus. A hiatal hernia was present. No gross lesions were noted in the entire examined stomach. Patchy mildly erythematous mucosa without active bleeding and with no stigmata of bleeding was found in the duodenal bulb. Biopsies were taken with a cold forceps for histology. Verification of patient identification for the specimen was done. Estimated blood loss was minimal. Impression: - No gross lesions in the entire esophagus. - Hiatal hernia. - No gross lesions in the entire stomach. - Erythematous duodenopathy. Biopsied. Recommendation: - Discharge patient to home. - Resume previous diet. - Continue present medications. - Await pathology results. Procedure Code(s): --- Professional --- 65020, Small intestinal endoscopy, enteroscopy beyond second portion of duodenum, not including ileum; with biopsy, single or multiple CPT copyright 2021 [employer]. All rights reserved. The codes documented in this report are preliminary and upon brusher machine review may be revised to meet current compliance requirements. Kiko Almanzar DO 11/27/2024 5:26:40 PM This report has been signed electronically. Number of Addenda: 0 Note Initiated On: 11/27/2024 4:43 PM 11/27/24 1727 Date Kiko Almanzar DO Cosigner Signature: Date (if indicated) CC: Dr. Elgin Honeycutt MD; Kiko Almanzar DO Date Dictated: 11/27/24 1643 Date Transcribed: Foxing Closer: IRIS Signed [facility] MR/POSTOP.[facility] 11-27-2024 MR/POSTOP.[facility] Medical Records Department [address] [place] [address] Anesthesia Postop Eval I 11/27/241708 MR#: [id number] Acct: [id number] Name: JULI DAVIDSON Rep #: [id number] : 1960 64 From: Zia Martin [employer]ERSON [employer]OES PCP: Dr. Elgin Honeycutt MD Status:REG [facility] Y Race: C Location: EN Anesthesia: Postop Eval I Current Vital Signs Temperature: 97.9 F Pulse Rate: 90 Blood Pressure: 116/67 Respiratory Rate: 16 Pulse Ox: 97 Assessment Airway patent: Yes Spontaneous unlabored respirations: Yes nausea: No Vomiting: No Anesthesia Complication: No Fluid Hydration Crystalloid volume administer (ml): 700 Total IV fluid infused: 700 Progress Note Anesthesia document: Postop Eval 1 completed: Yes 11/27/241708 Date Zia [place] [employer] Cosigner Signature: Date CC: Signed [facility] MR/[id number] 05-27-2025 MR/POST[address] Medical Records Department [address] [place] [address] Anesthesia Postop Eval II 11/27/242022 MR#: [id number] Acct: [id number] Name: JULI DAVIDSON Rep #: [id number] : 1960 64 From: Andrez Faith MD PCP: Dr. Elgin Honeycutt MD Status:REG SDC Y Race: C Location: EN Anesthesia Postop Eval I Sum Postop Eval Completion status Anesthesia document: Postop Eval 1 completed: Yes Anesthesia Postop Eval I Summary Anesthesia Postop Eval I Summary: Anesthesia Postop Eval I: Assessment Summary Airway patent Yes 11/27/24 17:09 [email or web address].[email or web address] Spontaneous unlabored Yes 11/27/24 17:09 [email or web address].TNES respirations Mental status nausea No 11/27/24 17:09 [email or web address].TNES Vomiting No 11/27/24 17:09 [employer].TNES Anesthesia Postop Eval I: Fluid Summary Crystalloid volume administer 700 11/27/24 17:09 [employer].TNES (ml) Colloids volume administered ( ml) Blood Product volume administered (ml) Total IV fluid infused 700 11/27/24 17:09 [email or web address].TNES Anesthesia Postop Eval I: Summary Notes Anesthesia Complication No 11/27/24 17:09 [employer]ESPERSON [email or web address].TNES Anesthesia Complication Comment: Post-operative progress note Anesthesia: Postop Eval II Evaluation Mental status: Awake and Calm Pain Level: 0 nausea: No Vomiting: No Complications Anesthesia Complication: No 11/27/242024 Date Andrez Faith MD Cosigner Signature: Date CC: Signed Normal [facility] Surgery Specimen Level Ileana 11-27-2024 Surgery Specimen Level IV Patient Age/Sex Location Account Attending Physician JULI DAVIDSON 64/M EN [id number] Kiko Almanzar DO Specimen: [id number] Received: 11/28/24 Status: LENNY Abraham Num: [id number] Spec Type: EGD BIOPSY Subm Dr: Kiko Almanzar DO HEADER OPERATION: EGD, biopsy PRE-OP DIAGNOSIS: Chronic pancreatitis, severe malnutrition TISSUE SUBMITTED: A- Duodenum biopsy MICROSCOPIC DIAGNOSIS A. Small bowel, duodenum, biopsy: Normal villous architecture with no specific pathologic change. Negative for increased intraepithelial lymphocytes. MICROSCOPIC DESCRIPTION Slides are reviewed. GROSS DESCRIPTION A. Received in formalin in a container labeled with the patient's name, date of , and duodenum biopsy is a 0.7 x 0.4 x 0.2 cm fragment of freeman-pink mucosal tissue. Submitted in toto in A1. [facility] 11-28-2024 Patient Age/Sex Location Account Attending Physician JULI DAVIDSON 64/M EN [id number] Kiko Almanzar, DO Signed (signature on file) Dr. Renetta Tellez MD 12/03/24 1210 [facility] Comment on above: Performed By: #### P SUIV ####[facility] [address] [place], [address] Upper GI/w Small Bowelon Upper GI/w Small Bowel [facility] Imaging Services [address] [place] [address] Upper GI/w Small Bowel MR#: [id number] Acct: [id number] Name: JULI DAVIDSON Rep #: [id number] : 1960 M 64 From: Heron Lee PCP: Dr. Elgin Honeycutt MD Status: REG CLI Study: Upper GI/w Small Bowel Date of Exam: 11/06/24 Exam# [id number] Ordering Dr: Elgin Honeycutt MD EXAM: Double contrast upper GI series and small-bowel series (combined dictation). CLINICAL HISTORY: Abdominal pain. Gastric ulcer concern. COMPARISON: None. TECHNIQUE: Double contrast upper GI series and small-bowel series (combined dictation). FINDINGS: The upper GI series demonstrates recurrent esophageal spasm of the distal esophagus. No area of persistent narrowing was noted. No mucosal abnormality is seen. No evidence of narrowing of the esophagogastric junction is noted. During the time of imaging, gastroesophageal reflux was not elicited. The stomach demonstrates no significant gastric mucosal thickening. No mass or ulcer is identified. Evaluation is somewhat limited suboptimal gastric mucosal contrast. No duodenal abnormality is noted. The small bowel series shows very rapid passage of contrast into the colon, with contrast in the colon by the 15 minute film. Normal mucosa of both jejunum and ileum is seen. No abnormality is noted of the ileocecal valve. RAD/Upper GI/w Small Bowel IMPRESSION: 1. Recurrent distal esophageal spasm. 2. Very rapid passage of contrast from the stomach through to the colon. 3. Normal-appearing jejunal and ileal mucosa. Reading Location: [place] [address] CC: Dr. Elgin Honeycutt MD Foxing Closer: Signed Normal [facility] AAA Screeningon 10-15-2024 AAA Screening [facility] Cardiovascular Services [address] [place] [address] AAA Screening 10/15/24 0802 MR#: [id number] Acct: [id number] Name: JULI DAVIDSON Rep #: [id number] : 1960 64 From: Ji Francis MD Attending Dr: Dr. Elgin Honeycutt MD Status: REG CLI Ordering Dr: Elgin Honeycutt MD Date: 10/15/24 Location: [facility] Sex: M C Admitted: Reason For Study Reason For Study: AAA screening Aorta Measurements Aorta Doppler Measurements Proximal aorta measures1.82 x 1.84cm. in cross-sectional Peak systolic flow velocities within the proximal aorta axis. measure 83.8 cm/sec. Proximal aorta measures1.82cm. in longitudinal axis. Peak systolic flow velocities within the mid aorta measure Mid aorta measures1.54 x 1.55cm. in cross-sectional axis. 98.6 cm/sec. Mid aorta measures1.63cm. in longitudinal axis. Peak systolic flow velocities within the distal aorta Distal aorta measures1.93 x 1.97cm. in cross-sectional axis.measure 92 cm/sec. Distal aorta measures1.95cm. in longitudinal axis. Left Iliac Artery Left iliac artery measures 0.99 x 1.01 cm. in the cross-sectional axis. Left iliac artery measures 1.02 cm. in the longitudinal axis. Peak systolic velocity in the left iliac artery measures 72.2 cm/sec. Right Iliac Artery Right iliac artery measures 0.80 x 0.85 cm. in the cross-sectional axis. Right iliac artery measures 0.87 cm. in the longitudinal axis. Peak systolic velocity in the right iliac artery measures 113.9 cm/sec. Procedure Aorta IVC Iliac vasculature or bypass grafts [id number]. Exam performed in department. VL/AAA Screening Interpretation Summary The dimensions of the intra-abdominal aorta are normal, without evidence of aneurysmal dilatation. The iliac arteries are also normal in caliber bilaterally. The intra-abdominal aorta and iliac arteries appear patent, demonstrating normal, pulsatile arterial flow and normal peak systolic velocities. Ordering Physician: Elgin Honeycutt Chi Referring Physician: Elgin Honeycutt Chi Performed By: China Pickard RVT 10/15/242210 Date Ji Francis MD CC: Dr. Elgin Honeycutt MD Date Dictated: 10/15/24801 Date Transcribed: 10/15/242210 Foxing Closer: Signed Normal [facility] Cardiovascular ultrasound re portOrdered By: Ji Francis on 10-15-2024 Study report [facility] Cardiovascular Services [address] [place] [address] AAA Screening 10/15/24801 MR#: [id number] Acct: [id number] Name: JULI DAVIDSON Rep #:[id number] : 1960 64 From: Ji Francis MD Attending Dr: Dr. Elgin Honeycutt MD Status: REG CLI Ordering Dr: Elgin Honeycutt MD Date: Location: [facility] Sex: M C Admitted: Reason For Study Reason For Study: AAA screening Aorta Measurements Aorta Doppler Measurements Proximal aorta measures1.82 x 1.84cm. in cross-sectional Peak systolic flow velocities within the proximal aorta axis. measure 83.8 cm/sec. Proximal aorta measures1.82cm. in longitudinal axis. Peak systolic flow velocities within the mid aorta measure Mid aorta measures1.54 x 1.55cm. in cross-sectional axis. 98.6 cm/sec. Mid aorta measures1.63cm. in longitudinal axis. Peak systolic flow velocities within the distal aorta Distal aorta measures1.93 x 1.97cm. in cross-sectional axis.measure 92 cm/sec. Distal aorta measures1.95cm. in longitudinal axis. Left Iliac Artery Left iliac artery measures 0.99 x 1.01 cm. in the cross-sectional axis. Left iliac artery measures 1.02 cm. in the longitudinal axis. Peak systolic velocity in the left iliac artery measures 72.2cm/sec. Right Iliac Artery Right iliac artery measures 0.80 x 0.85 cm. in the cross-sectional axis. Right iliac artery measures 0.87 cm. in the longitudinal axis. Peak systolic velocity in the right iliac artery measures 113.9 cm/sec. Procedure Aorta IVC Iliac vasculature or bypass grafts 71649. Exam performed in department. VL/AAA Screening Interpretation Summary The dimensions of the intra-abdominal aorta are normal, without evidence of aneurysmal dilatation. The iliac arteries are also normal in caliber bilaterally. The intra-abdominal aorta and iliac arteries appear patent, demonstrating normal, pulsatile arterial flow and normal peak systolic velocities. Ordering Physician: Elgin Honeycutt Chi Referring Physician: Elgin Honeycutt Chi Performed By: China Pickard RVT 10/15/242210 Date _ Ji Francis MD CC: Dr. Elgin Honeycutt MD ~ Date Dictated: 10/15/24801 Date Transcribed: 10/15/242210 Foxing Closer: Signed [facility] Other Phone: Lumbar Spine 2 or 3 Viewson 09-26-2024 Lumbar Spine 2 or 3 Views [facility] Imaging Services [address] [place] [address] [id number] Lumbar Spine 2 or 3 Views MR#: [id number] Acct: [id number] Name: JULI DAVIDSON Rep #: [id number] : 1960 M 64 From: Nav Kong MD PCP: Dr. Elgin Honeycutt MD Status: [facility] Study: Lumbar Spine 2 or 3 Views Date of Exam: Exam# [id number] Ordering Dr: Quirino Perry MD EXAM: Lumbar spine 2 or three views CLINICAL HISTORY: Concern for compression fracture, chronic pain COMPARISON: Thoracic spine CT 08/29/2023 TECHNIQUE: AP and lateral views lumbosacral spine, 2 images FINDINGS: 5 uzt-byi-yglzgpi lumbar vertebral type bodies identified. Overlying bowel gas on the AP view. No acute compression fracture or malalignment. The disc spaces appear within limits. Previously noted compression fracture deformity of T12 again seen now with vertebroplasty present. Aortoiliac atherosclerotic calcifications. Numerous calcifications within the area of the head and neck of the pancreas noted. RAD/Lumbar Spine 2 or 3 Views IMPRESSION: 5 fke-utw-pnbblaf lumbar vertebral type bodies identified. Overlying bowel gas on the AP view. No acute compression fracture or malalignment. The disc spaces appear within limits. Previously noted compression fracture deformity of T12 again seen now with vertebroplasty present. Reading Location: [facility] CC: Dr. Quirino Perry MD; Dr. Elgin Honeycutt MD Foxing Closer: Signed Normal [facility] Thoracic Spine 3 Viewson Thoracic Spine 3 Views [facility] Imaging Services [address] [place] [address] Thoracic Spine 3 Views MR#: [id number] Acct: [id number] Name: JULI DAVIDSNO Rep #: [id number] : 1960 64 From: Nav Kong MD PCP: Dr. Elgin Honeycutt MD Status: REG CLI Study: Thoracic Spine 3 Views Date of Exam: 09/26/24 Exam# [id number] Ordering Dr: Quirino Perry MD EXAM: X-ray thoracic spine three views CLINICAL HISTORY: Concern for compression fracture COMPARISON: PA and lateral views of the chest 03/28/2024 TECHNIQUE: Thoracic spine AP, lateral and swimmer's view, 3 total images FINDINGS: Similar appearance of anterior wedge T12 compression fracture deformity status post vertebroplasty. T2 through T11 disc spaces appear within limits without evidence of fracture or malalignment identified. T1 is not visualized on the lateral view and not well seen on the swimmer's view. Otherwise no other compression deformity identified. RAD/Thoracic Spine 3 Views IMPRESSION: Similar appearance of anterior wedge T12 compression fracture deformity status post vertebroplasty. T2 through T11 disc spaces appear within limits without evidence of fracture or malalignment identified. T1 is not visualized on the lateral view and not well seen on the swimmer's view. Otherwise no other compression deformity identified. Reading Location: [id number] CC: Dr. Quirino Perry MD; Dr. Elgin Honeycutt MD Foxing Closer: Signed Normal [facility] L3410.9998on 09-25-2024 [facility] COM[facility] Normal . [facility] Comment on above: Order Comment: 19091 8SERUM OR FROZEN PLASMA Result Comment: Test Ordered: 020203 Dexamethasone, Serum Dexamethasone, Serum 310 ng/dL ES Reference Range: . This test was developed and its performance characteristics determined by [facility]. It has not been cleared or approved by the Food and Drug Administration. Reference Range: Adults baseline: <30 8:00 AM following 1 mg dexamethasone previous evenin - 295 8:00 AM following 8 mg dexamethasone (4 x 2 mg doses) previous day: 1600 - 2850 Performed at: [facility] [address] [place] [id number] Facility Manager: Philippe Herbert MD, Phone: [phone] Performed at: [facility] Lab[address] [id number] Facility Manager: Kishan Rodriguez PhD, Phone: [phone] Performed By: #### L 501.9910, L3410.9998, L506.1001, L500.4100, L509.6001, L100.0100, L500.4050, L501.9520 ####[facility] [address] [place], [address] Magnetic resonance imaging r eportOrdered By: Joanna Guerrero on 09-24-2024 Study report [facility] Imaging Services [address] [place] [address] Spine Cervical (Routine) MR#: [id number] Acct: [id number] Name: JULI DAVIDSON Rep #: [id number] : 1960 M 64 From: Brooklynn Guerrero MD PCP: Dr. Elgin Honeycutt MD Status: REG C Study:Spine Cervical (Routine) Date of Exam: 09/21/24 Exam# [id number] Ordering Dr: Quirino Perry MD PROCEDURE: SPINE CERVICAL (ROUTINE) 09/21/2024 REASON FOR EXAM: 64-year-old male, pain to bilateral shoulders, headaches, blurred vision, no known injury. TECHNIQUE: Noncontrast cervical spine MRI. Coronal and Sagittal reconstruction series were provided. COMPARISON: None. FINDINGS: Visualization is slightly limited by motion artifact. Vertebrae: Mild multilevel vertebral body height loss. No acute osseous fracture. Bone marrow signal is unremarkable. Alignment: Normal. No spondylolisthesis. Spinal Cord: Cervical spinal cord is of normal size and signal intensities. Structures at the foramen magnum are unremarkable. C2-3: Unremarkable C3-4: Moderate disc space narrowing. Broad-based posterior disc-osteophyte complex indents the thecal sac, resulting in mild central canal stenosis, asymmetric to the right, and moderate right neural foraminal stenosis. C4-5: Mild disc space narrowing. Broad-based posterior disc-osteophyte complex indents the thecal sac. No significant central canal or neural foraminal stenosis. C5-6: Moderate disc space narrowing. Broad-based posterior disc-osteophyte complex indents the thecal sac resulting in mild central canal stenosis. No neural foraminal stenosis. C6-7: Mild disc space narrowing. Broad-based posterior disc-osteophyte complex indents the thecal sac resulting in mild central canal and mild bilateral neural foraminal stenosis. C7-T1: Unremarkable MRI/Spine Cervical (Routine) IMPRESSION: Mild multilevel central canal stenosis, and multilevel neural foraminal stenosis, greatest and of moderate degree on the right at C3-4. Reading Location: [facility] CC: Dr. Quirino Perry MD; Dr. Elgin Honeycutt MD ~ Foxing Closer: Signed [facility] Gastroenterology Visit Repor ton 09-21-2024 Gastroenterology Visit Report [facility] Gastroenterology [address] [place] [address] OFFICE VISIT Date of Service: 09/21/24 MR#: [id number] Acct: [id number] Name: JULI DAVIDSON Rep #: [id number] : 1960 Provider: MARTÍN Vasquez Age/Sex: 64/M Location: [facility] Status: Signed Intake Vital Signs 07/02/24 09:18 Height 6 ft 3 in Intake Visit Reasons: Chronic Pancreatitis Chief Complaint: chronic pancreatitis Allergies No Known Allergies Allergy (Verified 07/02/24 09:21) Medications ???Medication ???Instructions ???Recorded ???Confirmed ???Type folic acid 1 mg tablet 1 mg PO DAILYCM 30 days #30 tabs 0 09/13/23 Rx nicotine 21 mg/24 hr daily 21 mg transdermal DAILY 30 days Rx transdermal patch #30 ea thiamine HCl (vitamin B1) 100 mg 100 mg PO DAILY 30 days #30 tabs 0 09/13/23 09/21/24 Rx tablet (Vitamin B-1) cyclobenzaprine 10 mg tablet 10 mg PO TID PRN Muscle Spasm #15 07/02/24 Rx TABLETS gabapentin 800 mg tablet 800 mg PO TID 07/02/24 09/21/24 Hi story lidocaine 5 % topical patch 1 patch topical DAILY 5 days #5 ea 07/02/24 Rx (Lidoderm) oxycodone-acetaminophen 5 mg-325 1 tab PO Q6H PRN PRN Pain 3 days 1 Rx mg tablet #12 TABLETS Have you fallen in the past year?: Yes Nurse's Note: OV 09.21.24 Pt here to establish care with [facility] and f/u from recent hospital discharge. Pt reports n/v/d/c, abdominal pain, gas, bloating, heartburn, and trouble swallowing. Reports no prior hx of EGD and states hx of colonoscopy years ago. PFSH Medical History Rhabdomyolysis Hyponatremia Fall Debility T12 compression fracture Recurrent falls Thrombocytopenia Alcohol abuse Social History (Updated 09/21/24 @ 12:48 by Karolina Barber LPN) household members: none Smoking Status: Current every day smoker tobacco type: cigars quit status: not considering quitting alcohol intake: current Alcohol type: beer details: 12 beers daily. substance use type: does not use HPI HPI Chief Complaint: chronic pancreatitis Details: JULI DAVIDSON, is a 64 M who presents to the office today for establishment with [facility]. Pt referred to [facility] from his PCP Dr. Honeycutt for chronic pancreatitis. Pt has complaints of daily abd pain that radiates all over. It is not specifically in the epigastric region. He has nausea 2-3x per week but does not vomit. He has alternating bowels with constipation and loose stools. He notes having a colonoscopy many years ago. He continues to smoke and states I will stop when I . He denies any alcohol use. ROS Const Constitutional: Positive for fatigue, frequent falls, headache(s), weakness and weight change; No fever(s) ENT ENT: Positive for headache(s) and difficulty swallowing Cardio Cardiology: Positive for leg pain with exertion Gastro GI: Positive for abdominal pain, bloating, change in bowel habits, change in stool character, constipation, diarrhea, heartburn, difficulty swallowing, excessive flatus, loose stools, nausea/dyspepsia and vomiting; No belching, coffee ground emesis, cramping, feeling full early, incontinent of stools, Vomiting blood/hematemesis, Blood in stool, Black,tarry stools or other Musc Musculoskeletal: Positive for abnormal gait, joint pain, back pain, joint swelling, muscle cramps, muscle weakness, numbness, stiffness, tingling, Arthritis, sciatica, restless legs, leg pain at night and leg pain with exertion Skin Skin: No yellowing of the eye or itchy eyes Neuro Neurology: Positive for abnormal gait, unsteady gait/balance, dizziness, weakness, frequent falls, headache(s), numbness, tingling, restless legs and Increased tone in limbs Psych Psychiatric: Positive for anxiety, Positive for depression, Positive for Behavioral Problems and Positive for obsessions/compulsions Endo Endocrine: Positive for fatigue and weight change Aller/Imm Allergy/Immunologic: No itchy eyes Donny/Lymp Hematologic/Lymphatic: Positive for easy bleeding and easy bruising Exam Const General: cooperative and comfortable Nutritional Appearance: average body habitus and well nourished HENMT Head: normal to inspection Ears: hearing grossly normal bilaterally Nose: external nose normal Face and sinus: normal facial exam Eyes General: appearance normal, both eyes and all related structures Neck Neck: normal visual inspection Chest Chest palpation inspection: normal inspection of the chest and normal palpation of entire chest wall Resp Effort Inspection: normal respiratory effort Auscultation: Bilateral: Clear to Auscultation Cardio Palpation: normal PMI Rate: regular rate Rhythm: regular rhythm GI Inspection: normal to inspection and distended Auscultation: normal bowel sounds Percussion: normal to percussion Palpation: no hepatosplenomegaly, (more content not included)... Normal [facility] Spine Cervical (Routine)on 0 09-21-2024 Spine Cervical (Routine) [facility] [address], [place] [address] Spine Cervical (Routine) MR#: [id number] Acct: [id number] Name: JULI DAVIDSON Rep #: [id number] : 1960 64 From: Joanna Miller nd, MD PCP: Dr. Elgin Honeycutt MD Status: REG CLI Study: Spine Cervical (Routine) Date of Exam: Exam# [id number] Ordering Dr: Quirino Perry MD PROCEDURE: SPINE CERVICAL (ROUTINE) 09/21/2024 REASON FOR EXAM: 64-year-old male, pain to bilateral shoulders, headaches, blurred vision, no known injury. TECHNIQUE: Noncontrast cervical spine MRI. Coronal and Sagittal reconstruction series were provided. COMPARISON: None. FINDINGS: Visualization is slightly limited by motion artifact. Vertebrae: Mild multilevel vertebral body height loss. No acute osseous fracture. Bone marrow signal is unremarkable. Alignment: Normal. No spondylolisthesis. Spinal Cord: Cervical spinal cord is of normal size and signal intensities. Structures at the foramen magnum are unremarkable. C2-3: Unremarkable C3-4: Moderate disc space narrowing. Broad-based posterior disc-osteophyte complex indents the thecal sac, resulting in mild central canal stenosis, asymmetric to the right, and moderate right neural foraminal stenosis. C4-5: Mild disc space narrowing. Broad-based posterior disc-osteophyte complex indents the thecal sac. No significant central canal or neural foraminal stenosis. C5-6: Moderate disc space narrowing. Broad-based posterior disc-osteophyte complex indents the thecal sac resulting in mild central canal stenosis. No neural foraminal stenosis. C6-7: Mild disc space narrowing. Broad-based posterior disc-osteophyte complex indents the thecal sac resulting in mild central canal and mild bilateral neural foraminal stenosis. C7-T1: Unremarkable MRI/Spine Cervical (Routine) IMPRESSION: Mild multilevel central canal stenosis, and multilevel neural foraminal stenosis, greatest and of moderate degree on the right at C3-4. Reading Location: [facility] CC: Dr. Quirino Perry MD; Dr. Elgin Honeycutt MD Foxing Closer: Signed Normal [facility] Absolute lymphocyte countOrd ered By: Elgin Honeycutt on 09-20-2024 Lymphocytes Auto (Unsp spec) [#/Vol] 1.48 10*3/uL 0.83-4.51 [facility] Absolute neutrophil countOrd ered By: Elgin Honeycutt on 09-20-2024 Neutrophils (Bld) [#/Vol] 4.0 10*3/uL 2.0-7.7 [facility] Anion gap in Serum or Plasma Ordered By: Elgin Honeycutt on 09-20-2024 Anion gap [Moles/Vol] 12 mmol/L 5-15 [facility] Automated lymphocyte count a s percentage of total leukocytesOrdered By: Elgin Honeycutt on 09-20-2024 Lymphocytes/100 WBC Auto (Unsp spec) 24.6 % - [facility] BUN/creatinine ratioOrdered By: Elgin Honeycutt on 09-20-2024 Urea nitrogen/Creatinine [Mass ratio] 9.9 mg/mg Low 10-20 [facility] Basophil percentageOrdered B y: Elgin Honeycutt on 09-20-2024 Basophils/100 WBC (Bld) 1.0 % 0-1 [facility] Bilirubin, totalOrdered By: Elgin Honeycutt on 09-20-2024 Bilirubin [Mass/Vol] 0.38 mg/dL 0.00-1.30 [facility] CBC W/Diff, Automatedon 03-2 0-2025 Absolute Lymph 1.48 X10 3/uL Normal 0.83-4.51 [facility] Comment on above: Performed By: #### L 501.9910, L3410.9998, L506.1001, L500.4100, L509.6001, L100.0100, L500.4050, L501.9520 #### [facility] [address] [place], [address] Absolute Neut 4.0 X10 3/uL Normal 2.0-7.7 [facility] Comment on above: Performed By: #### L 501.9910, L3410.9998, L506.1001, L500.4100, L509.6001, L100.0100, L500.4050, L501.9520 #### [facility] [address] [place], [address] Basophils/100 WBC (Bld) 1.0 % Normal 0-1 [facility] Comment on above: Performed By: #### L 501.9910, L3410.9998, L506.1001, L500.4100, L509.6001, L100.0100, L500.4050, L501.9520 #### [facility] [address] [place], [address] Eosinophils/100 WBC (Bld) 0.7 % Normal 0-5 [facility] Comment on above: Performed By: #### L 501.9910, L3410.9998, L506.1001, L500.4100, L509.6001, L100.0100, L500.4050, L501.9520 #### [facility] [address] [place], [address] Erythrocyte distribution width (RBC) [Ratio] 13.6 % Normal 11.6-14.6 [facility] Comment on above: Performed By: #### L 501.9910, L3410.9998, L506.1001, L500.4100, L509.6001, L100.0100, L500.4050, L501.9520 #### [facility] [address] [place], [address] Hematocrit (Bld) [Volume fraction] 50.2 % Normal 40-54 [facility] Comment on above: Performed By: #### L 501.9910, L3410.9998, L506.1001, L500.4100, L509.6001, L100.0100, L500.4050, L501.9520 #### [facility] [address] [place], [address] (410 Hemoglobin (Bld) [Mass/Vol] 16.9 g/dL High 13.0-16.5 [facility] Comment on above: Performed By: #### L 501.9910, L3410.9998, L506.1001, L500.4100, L509.6001, L100.0100, L500.4050, L501.9520 #### [facility] [address] [place], [place], [phone] (431 IG% 0.300 Normal 0.0-0.9 [facility] Comment on above: Result Comment: IG% - Immature Granulocytes (promyelocytes, myelocytes and metamyelocytes) > 1% indicates that a LEFT SHIFT is Present. Performed By: #### L 501.9910, L3410.9998, L506.1001, L500.4100, L509.6001, L100.0100, L500.4050, L501.9520 #### [facility] [address] [place], [address] Lymphocytes/100 WBC (Bld) 24.6 % Normal 19-41 [facility] Comment on above: Performed By: #### L 501.9910, L3410.9998, L506.1001, L500.4100, L509.6001, L100.0100, L500.4050, L501.9520 #### [facility] [address] [place], [address] MCH (RBC) [Entitic mass] 32.1 pg High 27.0-32.0 [facility] Comment on above: Performed By: #### L 501.9910, L3410.9998, L506.1001, L500.4100, L509.6001, L100.0100, L500.4050, L501.9520 #### [facility] [address] [place], [address] MCHC (RBC) [Mass/Vol] 33.7 g/dL Normal 32-36 [facility] Comment on above: Performed By: #### L 501.9910, L3410.9998, L506.1001, L500.4100, L509.6001, L100.0100, L500.4050, L501.9520 #### [facility] [address] [place], [address] MCV (RBC) [Entitic vol] 95.3 fL High 80-94 [facility] Comment on above: Performed By: #### L 501.9910, L3410.9998, L506.1001, L500.4100, L509.6001, L100.0100, L500.4050, L501.9520 #### [facility] [address] [place], [address] Monocytes/100 WBC (Bld) 6.7 % Normal 0-10 [facility] Comment on above: Performed By: #### L 501.9910, L3410.9998, L506.1001, L500.4100, L509.6001, L100.0100, L500.4050, L501.9520 #### [facility] [address] [place], [address] Neutrophils/100 WBC (Bld) 66.7 % Normal 47-70 [facility] Comment on above: Performed By: #### L 501.9910, L3410.9998, L506.1001, L500.4100, L509.6001, L100.0100, L500.4050, L501.9520 #### [facility] [address] [place], [address] Nucleated RBC (Bld) [#/Vol] 0 10*3/uL Normal 0-5 [facility] Comment on above: Performed By: #### L 501.9910, L3410.9998, L506.1001, L500.4100, L509.6001, L100.0100, L500.4050, L501.9520 #### [facility] [address] [place], [address] Platelet mean volume (Bld) [Entitic vol] 10.1 fL Normal 6.2-12.0 [facility] Comment on above: Performed By: #### L 501.9910, L3410.9998, L506.1001, L500.4100, L509.6001, L100.0100, L500.4050, L501.9520 #### [facility] [address] [place], [address] Platelets (Bld) [#/Vol] 254 10*3/uL Normal 150-450 [facility] Comment on above: Performed By: #### L 501.9910, L3410.9998, L506.1001, L500.4100, L509.6001, L100.0100, L500.4050, L501.9520 #### [facility] [address] [place], [address] RBC (Bld) [#/Vol] 5.27 10*6/uL Normal 4.6-6.2 [facility] Comment on above: Performed By: #### L 501.9910, L3410.9998, L506.1001, L500.4100, L509.6001, L100.0100, L500.4050, L501.9520 #### [facility] [address] [place], [place], [phone] RDW SD 47.8 fl High 35.1-43.9 [facility] Comment on above: Performed By: #### L 501.9910, L3410.9998, L506.1001, L500.4100, L509.6001, L100.0100, L500.4050, L501.9520 #### [facility] [address] [place], [place], [phone] WBC (Bld) [#/Vol] 6.0 10*3/uL Normal 4.4-11.0 [facility] Comment on above: Performed By: #### L 501.9910, L3410.9998, L506.1001, L500.4100, L509.6001, L100.0100, L500.4050, L501.9520 #### [facility] [address] [place], [place], [phone] Calculated very low density lipoprotein (VLDL) cholesterol measurementOrdered By: Elgin Honeycutt on 09-20-2024 Calculated very low density lipoprotein (VLDL) cholesterol measurement 12 mg/dL 5-40 [facility] VLDL Cholesterol 12 mg/dL 5-40 [facility] Carbon dioxide, total [Moles /volume] in Central venous bloodOrdered By: Elgin Honeycutt on 09-20-2024 CO2 [Moles/Vol] 20.5 mmol/L Low 21.0-32.0 [facility] Chloride assayOrdered By: Von Honeycutt on 09-20-2024 Chloride [Moles/Vol] 101 mmol/L 98-108 [facility] Comprehensive Metabolic Prof ilon 09-20-2024 Albumin [Mass/Vol] 4.1 g/dL Normal 3.4-4.8 [facility] Comment on above: Performed By: #### L 501.9910, L3410.9998, L506.1001, L500.4100, L509.6001, L100.0100, L500.4050, L501.9520 #### [facility] [address] [place], [place], [phone] Albumin/Globulin [Mass ratio] 1.3 {ratio} Normal 0.9-2.4 [facility] Comment on above: Performed By: #### L 501.9910, L3410.9998, L506.1001, L500.4100, L509.6001, L100.0100, L500.4050, L501.9520 #### [facility] [address] [place], [place], [id number] ALK PHOS 90 U/L Normal 40-129 [facility] Comment on above: Performed By: #### L 501.9910, L3410.9998, L506.1001, L500.4100, L509.6001, L100.0100, L500.4050, L501.9520 #### [facility] [address] [place], [place], [phone] ALT [Catalytic activity/Vol] 18 U/L Normal <=46 [facility] Comment on above: Performed By: #### L 501.9910, L3410.9998, L506.1001, L500.4100, L509.6001, L100.0100, L500.4050, L501.9520 #### [facility] [address] [place], [place], [id number] AST [Catalytic activity/Vol] 20 U/L Normal <=37 [facility] Comment on above: Performed By: #### L 501.9910, L3410.9998, L506.1001, L500.4100, L509.6001, L100.0100, L500.4050, L501.9520 #### [facility] [address] [place], [address] Bilirubin [Mass/Vol] 0.38 mg/dL Normal 0.00-1.30 [facility] Comment on above: Performed By: #### L 501.9910, L3410.9998, L506.1001, L500.4100, L509.6001, L100.0100, L500.4050, L501.9520 #### [facility] [address] [place], [address] BUN/CRE 9.9 RATIO Low 10-20 [facility] Comment on above: Performed By: #### L 501.9910, L3410.9998, L506.1001, L500.4100, L509.6001, L100.0100, L500.4050, L501.9520 #### [facility] [address] [place], [address] Calcium [Mass/Vol] 9.1 mg/dL Normal 7.6-11.0 [facility] Comment on above: Performed By: #### L 501.9910, L3410.9998, L506.1001, L500.4100, L509.6001, L100.0100, L500.4050, L501.9520 #### [facility] [address] [place], [address] Chloride [Moles/Vol] 101 mmol/L Normal 98-108 [facility] Comment on above: Performed By: #### L 501.9910, L3410.9998, L506.1001, L500.4100, L509.6001, L100.0100, L500.4050, L501.9520 #### [facility] [address] [place], [address] CO2 [Moles/Vol] 20.5 mmol/L Low 21.0-32.0 [facility] Comment on above: Performed By: #### L 501.9910, L3410.9998, L506.1001, L500.4100, L509.6001, L100.0100, L500.4050, L501.9520 #### [facility] [address] [place], [address] Creatinine [Mass/Vol] 0.75 mg/dL Normal 0.70-1.20 [facility] Comment on above: Performed By: #### L 501.9910, L3410.9998, L506.1001, L500.4100, L509.6001, L100.0100, L500.4050, L501.9520 #### [facility] [address] [place], [place], [phone] GAP 12 Normal 5-15 [facility] Comment on above: Performed By: #### L 501.9910, L3410.9998, L506.1001, L500.4100, L509.6001, L100.0100, L500.4050, L501.9520 #### [facility] [address] [place], [place], [phone] (493) GFR/1.73 sq M.predicted among non-blacks MDRD (S/P/Bld) [Vol rate/Area] 100 mL/min/{1.73_m2} Normal >60 [facility] Comment on above: Result Comment: mL/m in/1.73m2 CKD-EPI Creatinine Equation (2020) Performed By: #### L 501.9910, L3410.9998, L506.1001, L500.4100, L509.6001, L100.0100, L500.4050, L501.9520 #### [facility] [address] [place], [address] Globulin (S) [Mass/Vol] 3.1 g/dL Normal 2.2-4.2 [facility] Comment on above: Performed By: #### L 501.9910, L3410.9998, L506.1001, L500.4100, L509.6001, L100.0100, L500.4050, L501.9520 #### [facility] [address] [place], [address] Glucose [Mass/Vol] 116 mg/dL High 70-99 [facility] Comment on above: Performed By: #### L 501.9910, L3410.9998, L506.1001, L500.4100, L509.6001, L100.0100, L500.4050, L501.9520 #### [facility] [address] [place], [address] Potassium [Moles/Vol] 4.3 mmol/L Normal 3.3-5.1 [facility] Comment on above: Performed By: #### L 501.9910, L3410.9998, L506.1001, L500.4100, L509.6001, L100.0100, L500.4050, L501.9520 #### [facility] [address] [place], [address] Sodium [Moles/Vol] 134 mmol/L Normal 133-145 [facility] Comment on above: Performed By: #### L 501.9910, L3410.9998, L506.1001, L500.4100, L509.6001, L100.0100, L500.4050, L501.9520 #### [facility] [address] [place], [address] T PROT 7.2 g/dL Normal 5.9-8.4 [facility] Comment on above: Performed By: #### L 501.9910, L3410.9998, L506.1001, L500.4100, L509.6001, L100.0100, L500.4050, L501.9520 #### [facility] [address] [place], [address] Urea nitrogen [Mass/Vol] 7 mg/dL Normal 4-19 [facility] Comment on above: Performed By: #### L 501.9910, L3410.9998, L506.1001, L500.4100, L509.6001, L100.0100, L500.4050, L501.9520 #### [facility] [address] [place], [address] Eosinophil percentageOrdered By: Elgin Honeycutt on 09-20-2024 Eosinophils/100 WBC (Bld) 0.7 % 0-5 [facility] Erythrocyte distribution wid th ratioOrdered By: Elgin Honeycutt on 09-20-2024 Erythrocyte distribution width (RBC) [Ratio] 13.6 % 11.6-14.6 [facility] Erythrocyte distribution wid th standard deviationOrdered By: Elgin Honeycutt on 09-20-2024 Erythrocyte distribution width (RBC) [Entitic vol] 47.8 fL High 35.1-43.9 [facility] Erythrocyte distribution width (RBC) [Ratio] 47.8 fl High 35.1-43.9 [facility] GFR/1.73 sq M.predicted vijay g non-blacks MDRD (S/P/Bld) [Vol rate/Area]Ordered By: Elgin Honeycutt on 09-20-2024 Estimated GFR (MDRD) Non-Af Amer 100 >60 [facility] Comment on above: mL/min/1.73m2 CKD-EP I Creatinine Equation (2020) Glomerular filtration rate ( GFR) estimation/1.73 sq m using serum, plasma, or whole bOrdered By: Elgin Honeycutt 09-20-2024 GFR/1.73 sq M.predicted among non-blacks MDRD (S/P/Bld) [Vol rate/Area] 100 mL/min/{1.73_m2} >60 [facility] Comment on above: mL/min/1.73m2 CKD-EP I Creatinine Equation (2020) Hematocrit Auto (Bld) [Volum e fraction]Ordered By: Elgin Honeycutt 09-20-2024 Hematocrit (Bld) [Volume fraction] 50.2 % 40-54 [facility] Hemoglobin measurementOrdere d By: Elgin Honeycutt on 09-20-2024 Hemoglobin (Bld) [Mass/Vol] 16.9 g/dL High 13.0-16.5 [facility] Immature granulocytes/100 WB C Auto (Bld)Ordered By: Elgin Honeycutt on 09-20-2024 Immature granulocytes/100 WBC (Bld) 0.300 % 0.0-0.9 [facility] Comment on above: IG% - Immature Granu locytes (promyelocytes, myelocytes and metamyelocytes) > 1% indicates that a LEFT SHIFT is Present. L506.1001on 09-20-2024 Vitamin D 25-OH 14.4 ng/mL Low 30-100 [facility] Comment on above: Result Comment: Susana min D Status Deficiency: <20 ng/mL (50nmol/L) Insufficiency: 20-30 ng/mL (50-75 nmol/L) Sufficiency: 30-100 ng/mL (75-250 nmol/L) Toxicity: >100 ng/mL (>250 nmol/L) Performed By: #### L 501.9910, L3410.9998, L506.1001, L500.4100, L509.6001, L100.0100, L500.4050, L501.9520 ####[facility] [address] [place], [place], [address] L509.6001on 09-20-2024 CORTISOL 1.89 ug/dL Low 6.02-18.40 [facility] Comment on above: Performed By: #### L 501.9910, L3410.9998, L506.1001, L500.4100, L509.6001, L100.0100, L500.4050, L501.9520 ####[facility] [address] [place], [place], [address] LDL calc ser/plasOrdered By: Elgin Honeycutt on 09-20-2024 Cholesterol in LDL [Mass/Vol] 133 mg/dL [facility] Comment on above: Sbaypphmtc=923-339 m g/dL & Higher Hfsl=871 mg/dL or greater LDL Cholesterol, Calculated 133 mg/dL [facility] Comment on above: Qvvveaprnw=885-996 m g/dL & Higher Tcpy=004 mg/dL or greater Laboratory - Chemistry and C hemistry - challengeOrdered By: Elgin Honeycutt on 09-20-2024 AST [Catalytic activity/Vol] 20 U/L <38 [facility] Lipid Profileon 09-20-2024 CHOL:HDL 2.99 Normal [facility] Comment on above: Performed By: #### L 501.9910, L3410.9998, L506.1001, L500.4100, L509.6001, L100.0100, L500.4050, L501.9520 ####[facility] [address] [place], [place], [phone](735) Cholesterol [Mass/Vol] 218 mg/dL High <=200 [facility] Comment on above: Result Comment: Chol esterol level, Desirable <200 mg/dL Borderline high cholesterol 200-239 mg/dL High cholesterol >=240 mg/dL Recommendations of the NCEP Adult Treatment Panel for the following risk-cutoff thresholds for the [place] population. Performed By: #### L 501.9910, L3410.9998, L506.1001, L500.4100, L509.6001, L100.0100, L500.4050, L501.9520 ####[facility] [address] [place], [place], [phone](097) Cholesterol in HDL [Mass/Vol] 73 mg/dL Normal [facility] Comment on above: Result Comment: Ilana onal Cholesterol Education Program (NCEP) guidelines: <40 mg/dL: Low HDL-cholesterol (major risk factor for CHD) >= 60 mg/dL: High HDL-cholesterol (negative risk factor for CHD) HDL-cholesterol is affected by a number of factors, e.g. smoking, exercise, hormones, sex and age. Performed By: #### L 501.9910, L3410.9998, L506.1001, L500.4100, L509.6001, L100.0100, L500.4050, L501.9520 ####[facility] [address] [place], [place], [id number] Cholesterol in LDL [Mass/Vol] 133 mg/dL Normal [facility] Comment on above: Result Comment: Bord obpbwd=099-946 mg/dL Higher Bufj=248 mg/dL or greater Performed By: #### L 501.9910, L3410.9998, L506.1001, L500.4100, L509.6001, L100.0100, L500.4050, L501.9520 ####[facility] [address] [place], [address](657) Cholesterol in VLDL [Mass/Vol] 12 mg/dL Normal 5-40 [facility] Comment on above: Performed By: #### L 501.9910, L3410.9998, L506.1001, L500.4100, L509.6001, L100.0100, L500.4050, L501.9520 ####[facility] [address] [place], [place], [phone](691) Triglyceride [Mass/Vol] 60 mg/dL Normal [facility] Comment on above: Result Comment: The drugs N-Acetylcysteine and Metamizole may falsely depress this assay. Normal range: <150 mg/dL Borderline High: 150-199 mg/dL High: 200-499 mg/dL Very High: >500 mg/dL Performed By: #### L 501.9910, L3410.9998, L506.1001, L500.4100, L509.6001, L100.0100, L500.4050, L501.9520 ####[facility] [address] [place], [place], [phone] Lymphocytes Auto (Unsp spec) [#/Vol]Ordered By: Elgin Honeycutt on 09-20-2024 Lymphocytes (Bld) [#/Vol] 1.48 10*3/uL 0.83-4.51 [facility] Lymphocytes/100 WBC Auto (Un sp spec)Ordered By: Elgin Honeycutt on 03-20-2025 Lymphocytes/100 WBC (Bld) 24.6 % 19-41 [facility] MCV (mean corpuscular volume ) determinationOrdered By: Elgin Honeycutt on 09-20-2024 MCV (RBC) [Entitic vol] 95.3 fL High 80-94 [facility] Mean corpuscular hemoglobin (MCH) determinationOrdered By: Elgin Honeycutt on 09-20-2024 MCH (RBC) [Entitic mass] 32.1 pg High 27.0-32.0 [facility] Mean corpuscular hemoglobin concentration (MCHC) determinationOrdered By: Elgin Honeycutt on 09-20-2024 MCHC (RBC) [Mass/Vol] 33.7 g/dL 32-36 [facility] Mean platelet volume determi nationOrdered By: Elgin Honeycutt on 09-20-2024 Platelet mean volume (Bld) [Entitic vol] 10.1 fL 6.2-12.0 [facility] Monocyte percentageOrdered B y: Elgin Honeycutt on 09-20-2024 Monocytes/100 WBC (Bld) 6.7 % 0-10 [facility] Neutrophil percentageOrdered By: Elgin Honeycutt on 09-20-2024 Neutrophils/100 WBC (Bld) 66.7 % 47-70 [facility] No Panel InformationOrdered By: Elgin Honeycutt on 09-20-2024 Cortisol AM Sample 1.89 ug/dL Low 6.02-18.40 [facility] Nucleated red blood cell per centageOrdered By: Elgin Honeycutt on 09-20-2024 Nucleated RBC/100 WBC (Bld) [Ratio] 0 % 0-5 [facility] PSA, total screeningOrdered By: Elgin Honeycutt on 09-20-2024 Prostate Specific Antigen Screen 0.97 ng/mL 0.02-4.00 [facility] Comment on above: This test was perfor med using the [employer] tPSA method. Measured values of a patient sample can vary depending on the testing procedure used. PSA values determined on patient samples by different testing procedures cannot be used interchangeably. If there is a change in PSA assays while monitoring therapy, sequential testing should be performed to confirm baseline values. PSA,Total - Annual Screenon 09-20-2024 PSA,TOT SCREEN 0.97 ng/mL Normal 0.02-4.00 [facility] Comment on above: Result Comment: This test was performed using the [employer] tPSA method. Measured values of a patient??sample can vary depending on the testing procedure used. PSA values determined on patient samples by different testing procedures cannot be used interchangeably. If there is a change in PSA assays while monitoring therapy, sequential testing should be performed to confirm baseline values. Performed By: #### L 501.9910, L3410.9998, L506.1001, L500.4100, L509.6001, L100.0100, L500.4050, L501.9520 ####[facility] [id number] [place], [place], [id number] Platelet countOrdered By: Von Honeycutt on 09-20-2024 Platelets (Bld) [#/Vol] 254 10*3/uL 150-450 [facility] Potassium (Unsp spec) [Mass/ Vol]Ordered By: Elgin Honeycutt on 09-20-2024 Potassium [Moles/Vol] 4.3 mmol/L 3.3-5.1 [facility] Potassium measurement (mass/ volume)Ordered By: Elgin Honeycutt on 09-20-2024 Potassium (Unsp spec) [Mass/Vol] 4.3 mmol/L 3.3-5.1 [facility] RBC Auto (Bld) [#/Vol]Ordere d By: Elgin Honeycutt on 09-20-2024 RBC (Bld) [#/Vol] 5.27 10*6/uL 4.6-6.2 [facility] Screening total cholesterol/ high density lipoprotein (HDL) cholesterol ratioOrdered By: Elgin Honeycutt on 09-20-2024 Cholesterol.total/Chol esterol in HDL [Mass ratio] 2.99 {ratio} [facility] Serum creatinine measurement (mass/volume)Ordered By: Elgin Honeycutt on 09-20-2024 Creatinine [Mass/Vol] 0.75 mg/dL 0.70-1.20 [facility] Serum globulin measurementOr dered By: Elgin Honeycutt on 09-20-2024 Globulin (S) [Mass/Vol] 3.1 g/dL 2.2-4.2 [facility] Serum glucose measurement (m ass/volume)Ordered By: Elgin Honeycutt on 09-20-2024 Glucose [Mass/Vol] 116 mg/dL High 70-99 [facility] Serum or plasma alanine mckeon otransferase (ALT) measurementOrdered By: Elgin Honeycutt on 09-20-2024 ALT [Catalytic activity/Vol] 18 U/L <47 [facility] Serum or plasma albumin johnathon urement (mass/volume)Ordered By: Elgin Honeycutt 09-20-2024 Albumin [Mass/Vol] 4.1 g/dL 3.4-4.8 [facility] Serum or plasma albumin/glob ulin mass ratioOrdered By: Elgin Yinka 09-20-2024 Albumin/Globulin [Mass ratio] 1.3 {ratio} 0.9-2.4 [facility] Serum or plasma alkaline larry sphatase measurementOrdered By: Elgin Yinka 09-20-2024 ALP [Catalytic activity/Vol] 90 U/L 40-129 [facility] Serum or plasma calcium johnathon urement (mass/volume)Ordered By: Elgin Honeycutt 09-20-2024 Calcium [Mass/Vol] 9.1 mg/dL 7.6-11.0 [facility] Serum or plasma cholesterol in HDL measurement (mass/volume)Ordered By: Elgin Honeycutt 09-20-2024 Cholesterol in HDL [Mass/Vol] 73 mg/dL >40 [facility] Comment on above: National Cholesterol Education Program (NCEP) guidelines:<40 mg/dL: Low HDL-cholesterol (major risk factor for CHD)>= 60 mg/dL: High HDL-cholesterol (negative risk factor for CHD)HDL-cholesterol is affected by a number of factors, e.g. smoking, exercise, hormones, sex and age. Serum or plasma cholesterol measurement (mass/volume)Ordered By: Elgin Honeycutt 09-20-2024 Cholesterol [Mass/Vol] 218 mg/dL High <201 [facility] Comment on above: Cholesterol level, D esirable <200 mg/dLBorderline high cholesterol 200-239 mg/dLHigh cholesterol >=240 mg/dLRecommendations of the NCEP Adult Treatment Panel for the following risk-cutoff thresholds for the [place] population. Serum or plasma urea nitroge n measurement (mass/volume)Ordered By: Elgin Honeycutt on 09-20-2024 Urea nitrogen [Mass/Vol] 7 mg/dL 4-19 [facility] Sodium levelOrdered By: Elgin Honeycutt on 09-20-2024 Sodium [Moles/Vol] 134 mmol/L 133-145 [facility] TSH DL <= 0.005 mIU/L QnOrde red By: Elgin Honeycutt on 09-20-2024 Thyroid Stimulating Hormone (TSH) 1.970 uIU/mL 0.300-4.200 [facility] TSH Qn 1.970 uIU/mL 0.300-4.200 [facility] Thyroid Stim Hormone (TSH)on 09-20-2024 TSH 1.970 uIU/mL Normal 0.300-4.200 [facility] Comment on above: Performed By: #### L 501.9910, L3410.9998, L506.1001, L500.4100, L509.6001, L100.0100, L500.4050, L501.9520 ####[facility] [address] [place], [address] Total proteinOrdered By: Elgin Honeycutt on 09-20-2024 Protein [Mass/Vol] 7.2 g/dL 5.9-8.4 [facility] Triglycerides measurementOrd ered By: Elgin Honeycutt 09-20-2024 Triglyceride [Mass/Vol] 60 mg/dL <199 [facility] Comment on above: The drugs N-Acetylcy steine and Metamizole may falsely depress this assay. Normal range: <150 mg/dLBorderline High: 150-199 mg/dLHigh: 200-499 mg/dLVery High: >500 mg/dL Vitamin D, 25-hydroxyOrdered By: Elgin Honeycutt on 09-20-2024 Vitamin D 25-Hydroxy 14.4 ng/mL Low 30-100 [facility] Comment on above: Vitamin D StatusDefi ciency: <20 ng/mL (50nmol/L)Insufficiency: 20-30 ng/mL (50-75 nmol/L)Sufficiency: 30-100 ng/mL (75-250 nmol/L)Toxicity: >100 ng/mL (>250 nmol/L) White blood cell (WBC) count Ordered By: Elgin Honeycutt on 09-20-2024 WBC (Bld) [#/Vol] 6.0 10*3/uL 4.4-11.0 [facility] Abdomen/Pelvis WITH Contrast on 08-27-2024 Abdomen/Pelvis WITH Contrast [facility] [address] [place] [address] Abdomen/Pelvis WITH Contrast MR#: [id number] Acct: [id number] Name: JULI DAVIDSON Rep #: [id number] : 1960 M 64 From: Jeanmarie Townsend MD PCP: Dr. Elgin Honeycutt MD Status: REG CLI Study: Abdomen/Pelvis WITH Contrast Date of Exam: Exam# [id number] Ordering Dr: Elgin Honeycutt MD PROCEDURE: ABDOMEN/PELVIS WITH CONTRAST REASON FOR EXAM: Abdominal pain TECHNIQUE: Abdomen and pelvis CT with intravenous contrast. COMPARISON: None. FINDINGS: Lung bases: Clear Liver: Numerous hypodense masses with no enhancement with the largest in the right lobe measuring 4.4 cm. Gallbladder: Gallstone Spleen: Unremarkable. Pancreas: Calcifications in the pancreatic head and body. Adrenals: Left adrenal nodule consistent with an adenoma measuring 2.4 cm. Right adrenal nodule measuring 1.1 cm also suggestive of an adrenal nodule. Kidneys: No evidence of hydronephrosis. 1 cm left renal cyst. Bladder: Unremarkable. Reproductive Organs: Prostate measures 4.5 cm in transverse dimension. Bowel: Unremarkable. Appendix: Normal. Lymph nodes: No suspicious lymph node enlargement. Vasculature: Mild diffuse atherosclerotic calcifications are noted. Peritoneum / Retroperitoneum: No ascites. No free air. Bones: Compression fracture with prior vertebroplasty of T12.. CT/Abdomen/Pelvis WITH Contrast IMPRESSION: 1. Chronic pancreatitis 2. Hepatic cysts 3. Bilateral adrenal adenomas, jgboa-gaecmht-tdfg-left 4. Prostatomegaly 5. Compression fracture of T12 with prior vertebroplasty One or more dose reduction techniques were used (e.g., Automated exposure control, adjustment of the mA and/or kV according to patient size, use of iterative reconstruction technique). Reading Location: [facility] CC: Dr. Elgin Honeycutt MD Foxing Closer: Signed Normal [facility] Absolute lymphocyte countOrd ered By: Elgin Honeycutt on 08-27-2024 Lymphocytes Auto (Unsp spec) [#/Vol] 2.51 10*3/uL 0.83-4.51 [facility] Absolute neutrophil countOrd ered By: Elgin Honeycutt on 08-27-2024 Neutrophils (Bld) [#/Vol] 3.6 10*3/uL 2.0-7.7 [facility] Albumin to globulin ratioOrd ered By: Elgin Honeycutt on 08-27-2024 Albumin/Globulin [Mass ratio] 0.9 {ratio} 0.9-2.4 [facility] Amylaseon 08-27-2024 DALIA 71 U/L Normal 25-115 [facility] Comment on above: Performed By: #### L 500.4050, L501.5200, L501.2450, L501.2400, L501.2300, L100.0100 ####[facility] [address] [place], [address] Automated lymphocyte count a s percentage of total leukocytesOrdered By: Elgin Yinka on 08-27-2024 Lymphocytes/100 WBC Auto (Unsp spec) 34.8 % 19-41 [facility] Basophil percentageOrdered B y: Elgin Honeycutt on 08-27-2024 Basophils/100 WBC (Bld) 1.4 % High 0-1 [facility] Bilirubin, totalOrdered By: Elgin Yinka on 08-27-2024 Bilirubin [Mass/Vol] 0.30 mg/dL 0.20-1.00 [facility] Comment on above: For patients on eltr ombopag therapy, use of Dimension [place] TBIL is not recommended. Blood urea nitrogen (BUN)/cr eatinine ratioOrdered By: Elgin Yinka on 08-27-2024 Urea nitrogen/Creatinine [Mass ratio] 6.4 mg/mg Low 10-20 [facility] CBC W/Diff, Automatedon 08-05 Absolute Lymph 2.51 X10 3/uL Normal 0.83-4.51 [facility] Comment on above: Performed By: #### L 500.4050, L501.5200, L501.2450, L501.2400, L501.2300, L100.0100 ####[facility] [address] [place], [address] Absolute Neut 3.6 X10 3/uL Normal 2.0-7.7 [facility] Comment on above: Performed By: #### L 500.4050, L501.5200, L501.2450, L501.2400, L501.2300, L100.0100 ####[facility] [address] [place], [address] Basophils/100 WBC (Bld) 1.4 % High 0-1 [facility] Comment on above: Performed By: #### L 500.4050, L501.5200, L501.2450, L501.2400, L501.2300, L100.0100 ####[facility] [address] [place], [address] Eosinophils/100 WBC (Bld) 5.1 % High 0-5 [facility] Comment on above: Performed By: #### L 500.4050, L501.5200, L501.2450, L501.2400, L501.2300, L100.0100 ####[facility] [address] [place], [address] Erythrocyte distribution width (RBC) [Ratio] 13.1 % Normal 11.6-14.6 [facility] Comment on above: Performed By: #### L 500.4050, L501.5200, L501.2450, L501.2400, L501.2300, L100.0100 ####[facility] [address] [place], [address] Hematocrit (Bld) [Volume fraction] 51.4 % Normal 40-54 [facility] Comment on above: Performed By: #### L 500.4050, L501.5200, L501.2450, L501.2400, L501.2300, L100.0100 ####[facility] [address] [place], [address] Hemoglobin (Bld) [Mass/Vol] 17.2 g/dL High 13.0-16.5 [facility] Comment on above: Performed By: #### L 500.4050, L501.5200, L501.2450, L501.2400, L501.2300, L100.0100 ####[facility] [address] [place], [address] IG% 0.300 Normal 0.0-0.9 [facility] Comment on above: Result Comment: IG% - Immature Granulocytes (promyelocytes, myelocytes and metamyelocytes) > 1% indicates that a LEFT SHIFT is Present. Performed By: #### L 500.4050, L501.5200, L501.2450, L501.2400, L501.2300, L100.0100 ####[facility] [address] [place], [address] Lymphocytes/100 WBC (Bld) 34.8 % Normal 19-41 [facility] Comment on above: Performed By: #### L 500.4050, L501.5200, L501.2450, L501.2400, L501.2300, L100.0100 ####[facility] [address] [place], [address] MCH (RBC) [Entitic mass] 32.0 pg Normal 27.0-32.0 [facility] Comment on above: Performed By: #### L 500.4050, L501.5200, L501.2450, L501.2400, L501.2300, L100.0100 ####[facility] [address] [place], [address] MCHC (RBC) [Mass/Vol] 33.5 g/dL Normal 32-36 [facility] Comment on above: Performed By: #### L 500.4050, L501.5200, L501.2450, L501.2400, L501.2300, L100.0100 ####[facility] [address] [place], [address] MCV (RBC) [Entitic vol] 95.5 fL High 80-94 [facility] Comment on above: Performed By: #### L 500.4050, L501.5200, L501.2450, L501.2400, L501.2300, L100.0100 ####[facility] [address] [place], [address] Monocytes/100 WBC (Bld) 8.7 % Normal 0-10 [facility] Comment on above: Performed By: #### L 500.4050, L501.5200, L501.2450, L501.2400, L501.2300, L100.0100 ####[facility] [address] [place], [address] Neutrophils/100 WBC (Bld) 49.7 % Normal 47-70 [facility] Comment on above: Performed By: #### L 500.4050, L501.5200, L501.2450, L501.2400, L501.2300, L100.0100 ####[facility] [address] [place], [address] Nucleated RBC (Bld) [#/Vol] 0 10*3/uL Normal 0-5 [facility] Comment on above: Performed By: #### L 500.4050, L501.5200, L501.2450, L501.2400, L501.2300, L100.0100 ####[facility] [address] [place], [address] Platelet mean volume (Bld) [Entitic vol] 9.6 fL Normal 6.2-12.0 [facility] Comment on above: Performed By: #### L 500.4050, L501.5200, L501.2450, L501.2400, L501.2300, L100.0100 ####[facility] [address] [place], [address] Platelets (Bld) [#/Vol] 307 10*3/uL Normal 150-450 [facility] Comment on above: Performed By: #### L 500.4050, L501.5200, L501.2450, L501.2400, L501.2300, L100.0100 ####[facility] [address] [place], [address] RBC (Bld) [#/Vol] 5.38 10*6/uL Normal 4.6-6.2 [facility] Comment on above: Performed By: #### L 500.4050, L501.5200, L501.2450, L501.2400, L501.2300, L100.0100 ####[facility] [address] [place], [address] RDW SD 46.5 fl High 35.1-43.9 [facility] Comment on above: Performed By: #### L 500.4050, L501.5200, L501.2450, L501.2400, L501.2300, L100.0100 ####[facility] [address] [place], [address] WBC (Bld) [#/Vol] 7.2 10*3/uL Normal 4.4-11.0 [facility] Comment on above: Performed By: #### L 500.4050, L501.5200, L501.2450, L501.2400, L501.2300, L100.0100 ####[facility] [address] [place], [address] Carbon dioxide measurementOr dered By: Elgin Honeycutt on 08-27-2024 CO2 [Moles/Vol] 22.0 mmol/L 21.0-32.0 [facility] Chloride measurementOrdered By: Elgin Honeycutt on 08-27-2024 Chloride [Moles/Vol] 101 mmol/L 98-107 [facility] Comprehensive Metabolic Prof ilon 08-27-2024 Albumin [Mass/Vol] 3.7 g/dL Normal 3.2-5.0 [facility] Comment on above: Performed By: #### L 500.4050, L501.5200, L501.2450, L501.2400, L501.2300, L100.0100 ####[facility] [address] [place], [address] Albumin/Globulin [Mass ratio] 0.9 {ratio} Normal 0.9-2.4 [facility] Comment on above: Performed By: #### L 500.4050, L501.5200, L501.2450, L501.2400, L501.2300, L100.0100 ####[facility] [address] [place], [address] ALK P 100 U/L Normal 45-117 [facility] Comment on above: Performed By: #### L 500.4050, L501.5200, L501.2450, L501.2400, L501.2300, L100.0100 ####[facility] [address] [place], [address] ALT [Catalytic activity/Vol] 27 U/L Normal 16-61 [facility] Comment on above: Performed By: #### L 500.4050, L501.5200, L501.2450, L501.2400, L501.2300, L100.0100 ####[facility] [address] [place], [address] AST [Catalytic activity/Vol] 18 U/L Normal 15-37 [facility] Comment on above: Performed By: #### L 500.4050, L501.5200, L501.2450, L501.2400, L501.2300, L100.0100 ####[facility] [address] [place], [address] Bilirubin [Mass/Vol] 0.30 mg/dL Normal 0.20-1.00 [facility] Comment on above: Result Comment: For patients on eltrombopag therapy, use of Dimension [place] TBIL is not recommended. Performed By: #### L 500.4050, L501.5200, L501.2450, L501.2400, L501.2300, L100.0100 ####[facility] [address] [place], [address] BUN/CRE 6.4 RATIO Low 10-20 [facility] Comment on above: Performed By: #### L 500.4050, L501.5200, L501.2450, L501.2400, L501.2300, L100.0100 ####[facility] [address] [place], [address] CA,Total 9.2 mg/dL Normal 8.5-10.1 [facility] Comment on above: Performed By: #### L 500.4050, L501.5200, L501.2450, L501.2400, L501.2300, L100.0100 ####[facility] [address] [place], [address] Chloride [Moles/Vol] 101 mmol/L Normal 98-107 [facility] Comment on above: Performed By: #### L 500.4050, L501.5200, L501.2450, L501.2400, L501.2300, L100.0100 ####[facility] [address] [place], [address] CO2 [Moles/Vol] 22.0 mmol/L Normal 21.0-32.0 [facility] Comment on above: Performed By: #### L 500.4050, L501.5200, L501.2450, L501.2400, L501.2300, L100.0100 ####[facility] [address] [place], [address] Creatinine [Mass/Vol] 0.78 mg/dL Normal 0.70-1.30 [facility] Comment on above: Result Comment: The validity of the calculated GFR GFRAA in patients over 70 years has not been determined. Clinical correlation is essential. Performed By: #### L 500.4050, L501.5200, L501.2450, L501.2400, L501.2300, L100.0100 ####[facility] [address] [place], [address] EST GFR - AA 128 mL/min Normal >60 [facility] Comment on above: Result Comment: Afri can Cymro GFR Calc Performed By: #### L 500.4050, L501.5200, L501.2450, L501.2400, L501.2300, L100.0100 ####[facility] [address] [place], [address] GAP 11 Normal 5-15 [facility] Comment on above: Performed By: #### L 500.4050, L501.5200, L501.2450, L501.2400, L501.2300, L100.0100 ####[facility] [address] [place], [address] GFR/1.73 sq M.predicted among non-blacks MDRD (S/P/Bld) [Vol rate/Area] 105 mL/min/{1.73_m2} Normal >60 [facility] Comment on above: Result Comment: Non- GFR Calc Performed By: #### L 500.4050, L501.5200, L501.2450, L501.2400, L501.2300, L100.0100 ####[facility] [address] [place], [address] Globulin (S) [Mass/Vol] 3.9 g/dL Normal 2.2-4.2 [facility] Comment on above: Performed By: #### L 500.4050, L501.5200, L501.2450, L501.2400, L501.2300, L100.0100 ####[facility] [address] [place], [address] Glucose [Mass/Vol] 136 mg/dL High 74-106 [facility] Comment on above: Result Comment: Fast ing Glucose result greater than or equal to 126 mg/dL suggests DIABETES MELLITUS per A.D.A. criteria. Performed By: #### L 500.4050, L501.5200, L501.2450, L501.2400, L501.2300, L100.0100 ####[facility] [address] [place], [address] Potassium [Moles/Vol] 3.4 mmol/L Low 3.5-5.1 [facility] Comment on above: Performed By: #### L 500.4050, L501.5200, L501.2450, L501.2400, L501.2300, L100.0100 ####[facility] [address] [place], [address] Sodium [Moles/Vol] 134 mmol/L Low 136-145 [facility] Comment on above: Performed By: #### L 500.4050, L501.5200, L501.2450, L501.2400, L501.2300, L100.0100 ####[facility] [address] [place], [address] T PROT 7.6 g/dL Normal 6.4-8.2 [facility] Comment on above: Performed By: #### L 500.4050, L501.5200, L501.2450, L501.2400, L501.2300, L100.0100 ####[facility] [address] [place], [address] Urea nitrogen [Mass/Vol] 5 mg/dL Low 7-18 [facility] Comment on above: Performed By: #### L 500.4050, L501.5200, L501.2450, L501.2400, L501.2300, L100.0100 ####[facility] [address] [place], [address] Eosinophil percentageOrdered By: Elgin Honeycutt on 08-27-2024 Eosinophils/100 WBC (Bld) 5.1 % High 0-5 [facility] Erythrocyte distribution wid th ratioOrdered By: Elgin Honeycutt on 08-27-2024 Erythrocyte distribution width (RBC) [Ratio] 13.1 % 11.6-14.6 [facility] Erythrocyte distribution wid th standard deviationOrdered By: Elgin Honeycutt on 08-27-2024 Erythrocyte distribution width (RBC) [Entitic vol] 46.5 fL High 35.1-43.9 [facility] Erythrocyte distribution width (RBC) [Ratio] 46.5 fl High 35.1-43.9 [facility] Estimated glomerular filtrat ion rate (GFR) AmericanOrdered By: Elgin Honeycutt on 08-27-2024 Estimated GFR (MDRD) Amer 128 mL/min >60 [facility] Comment on above: GFR Calc Glomerular filtration rate ( GFR) estimationOrdered By: Elgin Honeycutt on 08-27-2024 Estimated GFR (MDRD) Non-Af Amer 105 mL/min >60 [facility] Comment on above: Non- GFR Calc GFR/1.73 sq M.predicted among non-blacks MDRD (S/P/Bld) [Vol rate/Area] 105 mL/min/{1.73_m2} >60 [facility] Comment on above: Non- GFR Calc Glucose measurementOrdered B y: Elgin Honeycutt on 08-27-2024 Glucose [Mass/Vol] 136 mg/dL High 74-106 [facility] Comment on above: Fasting Glucose resu lt greater than or equal to 126 mg/dL suggests DIABETES MELLITUS per A.D.A. criteria. Hematocrit Auto (Bld) [Volum e fraction]Ordered By: Elgin Honeycutt on 08-27-2024 Hematocrit (Bld) [Volume fraction] 51.4 % 40-54 [facility] Hemoglobin measurementOrdere d By: Elgin Honeycutt on 08-27-2024 Hemoglobin (Bld) [Mass/Vol] 17.2 g/dL High 13.0-16.5 [facility] Immature granulocytes/100 WB C Auto (Bld)Ordered By: Elgin Honeycutt on 08-27-2024 Immature granulocytes/100 WBC (Bld) 0.300 % 0.0-0.9 [facility] Comment on above: IG% - Immature Granu locytes (promyelocytes, myelocytes and metamyelocytes) > 1% indicates that a LEFT SHIFT is Present. Laboratory - Chemistry and C hemistry - challengeOrdered By: Elgin Honeycutt on 08-27-2024 AST [Catalytic activity/Vol] 18 U/L 15-37 [facility] Lipaseon 08-27-2024 Lipase [Catalytic activity/Vol] 54 U/L Low 73-393 [facility] Comment on above: Performed By: #### L 500.4050, L501.5200, L501.2450, L501.2400, L501.2300, L100.0100 ####[facility] [address] [place], [address] Lipase measurementOrdered By : Elgin Honeycutt on 08-27-2024 Lipase [Catalytic activity/Vol] 54 U/L Low 73-393 [facility] Lymphocytes Auto (Unsp spec) [#/Vol]Ordered By: Elgin Honeycutt on 08-27-2024 Lymphocytes (Bld) [#/Vol] 2.51 10*3/uL 0.83-4.51 [facility] Lymphocytes/100 WBC Auto (Un sp spec)Ordered By: Elgin Honeycutt on 08-27-2024 Lymphocytes/100 WBC (Bld) 34.8 % 19-41 [facility] MCV (mean corpuscular volume ) determinationOrdered By: Elgin Honeycutt on 08-27-2024 MCV (RBC) [Entitic vol] 95.5 fL High 80-94 [facility] Magnesiumon 08-27-2024 Magnesium [Mass/Vol] 2.2 mg/dL Normal 1.6-2.6 [facility] Comment on above: Performed By: #### L 500.4050, L501.5200, L501.2450, L501.2400, L501.2300, L100.0100 ####[facility] [address] [place], [address] Magnesium measurementOrdered By: Elgin Honeycutt on 08-27-2024 Magnesium [Mass/Vol] 2.2 mg/dL 1.6-2.6 [facility] Mean corpuscular hemoglobin (MCH) determinationOrdered By: Elgin Honeycutt on 08-27-2024 MCH (RBC) [Entitic mass] 32.0 pg 27.0-32.0 [facility] Mean corpuscular hemoglobin concentration (MCHC) determinationOrdered By: Elgin Honeycutt on 08-27-2024 MCHC (RBC) [Mass/Vol] 33.5 g/dL 32-36 [facility] Mean platelet volume determi nationOrdered By: Elgin Honeycutt on 08-27-2024 Platelet mean volume (Bld) [Entitic vol] 9.6 fL 6.2-12.0 [facility] Monocyte percentageOrdered B y: Elgin Honeycutt on 08-27-2024 Monocytes/100 WBC (Bld) 8.7 % 0-10 [facility] Neutrophil percentageOrdered By: Elgin Honeycutt on 08-27-2024 Neutrophils/100 WBC (Bld) 49.7 % 47-70 [facility] Nucleated red blood cell per centageOrdered By: Elgin Honeycutt on 08-27-2024 Nucleated RBC/100 WBC (Bld) [Ratio] 0 % 0-5 [facility] Phosphoruson 08-27-2024 Phosphate [Mass/Vol] 2.3 mg/dL Low 2.5-4.9 [facility] Comment on above: Performed By: #### L 500.4050, L501.5200, L501.2450, L501.2400, L501.2300, L100.0100 ####[facility] [id number] [place], [address] Phosphorus measurementOrdere d By: Elgin Honeycutt on 08-27-2024 Phosphorus Level 2.3 mg/dL Low 2.5-4.9 [facility] Platelet countOrdered By: Von Honeycutt on 08-27-2024 Platelets (Bld) [#/Vol] 307 10*3/uL 150-450 [facility] Potassium measurementOrdered By: Elgin Honeycutt on 08-27-2024 Potassium [Moles/Vol] 3.4 mmol/L Low 3.5-5.1 [facility] RBC Auto (Bld) [#/Vol]Ordere d By: Elgin Honeycutt on 08-27-2024 RBC (Bld) [#/Vol] 5.38 10*6/uL 4.6-6.2 [facility] Serum anion gap measurementO rdered By: Elgin Honeycutt on 08-27-2024 Anion gap [Moles/Vol] 11 mmol/L 5-15 [facility] Serum globulin measurementOr dered By: Elgin Honeycutt 08-27-2024 Globulin (S) [Mass/Vol] 3.9 g/dL 2.2-4.2 [facility] Serum or plasma alanine mckeon otransferase (ALT) measurementOrdered By: Elgin Honeycutt 08-27-2024 ALT [Catalytic activity/Vol] 27 U/L 16-61 [facility] Serum or plasma albumin johnathon urement (mass/volume)Ordered By: Elgin Honeycutt 08-27-2024 Albumin [Mass/Vol] 3.7 g/dL 3.2-5.0 [facility] Serum or plasma alkaline larry sphatase measurementOrdered By: Elgin Honeycutt 08-27-2024 ALP [Catalytic activity/Vol] 100 U/L 45-117 [facility] Serum or plasma amylase johnathon urement (enzymatic activity/volume)Ordered By: Elgin Honeycutt 08-27-2024 Amylase [Catalytic activity/Vol] 71 U/L 25-115 [facility] Serum or plasma calcium johnathon urement (mass/volume)Ordered By: Elgin Honeycutt on 08-27-2024 Calcium [Mass/Vol] 9.2 mg/dL 8.5-10.1 [facility] Serum or plasma creatinine m easurement (mass/volume)Ordered By: Elgin Honeycutt on 08-27-2024 Creatinine [Mass/Vol] 0.78 mg/dL 0.70-1.30 [facility] Comment on above: The validity of the calculated GFR & GFRAA in patients over 70 years has not been determined. Clinical correlation is essential. Serum or plasma urea nitroge n measurement (mass/volume)Ordered By: Elgin Honeycutt on 08-27-2024 Urea nitrogen [Mass/Vol] 5 mg/dL Low 7-18 [facility] Sodium levelOrdered By: Elgin Honeycutt on 08-27-2024 Sodium [Moles/Vol] 134 mmol/L Low 136-145 [facility] Total proteinOrdered By: Elgin Honeycutt on 08-27-2024 Protein [Mass/Vol] 7.6 g/dL 6.4-8.2 [facility] White blood cell (WBC) count Ordered By: Elgin Honeycutt on 08-27-2024 WBC (Bld) [#/Vol] 7.2 10*3/uL 4.4-11.0 [facility] NCS and/or EMG Patienton NCS and/or EMG Patient [facility] Services/Neurology [address] [place] [address] MR#: [id number] Acct: [id number] Name: JULI DAVIDSON Rep #: [id number] : 1960 64 From: Donna Salazar MD Referring Dr: Elgin Honeycutt. Status: REG CLI Location: PSN Date: 08/22/24 Sex: M C NCS and/or EMG Patient Report Ordering Doctor: Elgin Honeycutt Chi DATE OF SERVICE: 08/22/24 Juli presents for electrodiagnostic testing of the upper limbs. He reports numbness and tingling in both hands and pain in both arms. Electrodiagnostic findings: Median motor nerve demonstrates normal distal latency and amplitude bilaterally with reduced conduction velocities across the wrist. Normal ulnar motor response bila terally. Prolonged median sensory latency at the wrist bilaterally. Needle EMG testing was performed in the upper limbs. All muscles tested showed no evidence of denervation with normal motor unit action potentials Electrodiagnostic impression: This is an abnormal study in the upper limbs. 1. Electrodiagnostic findings suggestive of bilateral median mononeuropathy. This is consistent with a mild bilateral carpal tunnel syndrome. Multi Select Codes Neurology Neurology Interp Codes: 59750-83 Musc test done w/n test comp (interp) (2) and 45940-94 Nrv cndj test 13/> studies (interp) 08/22/24 1205 Date Donna Salazar MD CC: Dr. Donna Salazar MD; Dr. Elgin Honeycutt MD Date Dictated: 08/22/24 120 Date Transcribed: 08/22/241201 Foxing Closer: AA Signed Normal [facility] Brain without Contraston Brain without Contrast [facility] Services [address] [place] [address] [id number] Brain without Contrast MR#: [id number] Acct: [id number] Name: JULI DAVIDSON Rep #: [id number] : 1960 M 63 From: Vel Lee PCP: Dr. Elgin Honeycutt MD Status: REG CLI Study: Brain without Contrast Date of Exam: 07/30/24 Exam# [id number] Ordering [place]: [place] [id number] STUDY: MRI BRAIN WITHOUT CONTRAST REASON FOR EXAM: Male, 63 years old. LEFT HEMIPARESIS TECHNIQUE: Standardized multiplanar fat and water weighted pulse sequences were obtained. MRI examination brain obtained with standard protocol including multiplanar multiecho noncontrast imaging. Contrast: No contrast administered COMPARISON: Prior study dated: CT examination of 08/29/2023 HEMISPHERES, CEREBELLUM AND BRAINSTEM: 1. The cerebral parenchyma, ventricular system, subarachnoid spaces have normal configuration and density. There is a normal gyral pattern. There is normal johnson/white differentiation. No midline shift.. 2. Diffuse involutional changes, scattered chronic microvascular deep white matter disease. No areas fluid restriction or acute ischemic change. No areas of hemosiderin deposition or hemorrhage. 3. No intraparenchymal mass, hemorrhage, or acute territorial infarct. 4. The cerebellum, brainstem, basilar and suprasellar cisterns have normal appearance. No Chiari malformation. PITUITARY: Infundibulum and pituitary have normal configuration. Midline structures appear normal. CSF SPACES: Appropriate for age. No hydrocephalus. Basal cisterns are patent. VESSELS: 1. There are normal flow voids noted in the great vessels at the skull base ORBITS AND PARANASAL SINUSES: 1. Both globes, extraocular muscles, optic nerves and retrobulbar fat appear unremarkable. Incidental note of postoperative changes of a LEFT lens replacement. 2. Paranasal sinuses are clear. BONY ELEMENTS: Bony elements of the cranial vault, facial skeleton and skull base have normal appearance. SCALP AND SOFT TISSUES: Normal appearance of the soft tissues of the scalp and the visualized face OTHER: None MRI/Brain without Contrast IMPRESSION: 1. Diffuse involutional change and chronic microvascular deep white matter disease. 2. No mass, hemorrhage, or acute territorial infarct. 3. No radiographically significant sinus disease. Electronically Signed: Vel Lay MD at 23:49 EST , CC: Dr. Elgin Honeycutt MD Foxing Closer: Signed Normal [facility] 98-CU-Roitwat DOrdered By: Leonid Honeycutt on 07-03-2024 Vitamin D 25-Hydroxy 11.8 ng/mL [facility] Comment on above: Vitamin D 25(OH) Sta tus Range Deficiency <20 ng/mL (50nmol/L) Insufficiency 20 - 30 ng/mL (50 - 75 nmol/L) Sufficiency 30 - 100 ng/mL (75 - 250 nmol/L) Toxicity >100 ng/mL (>250 nmol/L) High density lipoprotein (HD L) measurementOrdered By: Elgin Honeycutt on 07-03-2024 Cholesterol in HDL [Mass/Vol] 56 mg/dL >40 [facility] Comment on above: The drugs N-Acetylcy steine and Metamizole may falsely depress this assay. Reference Range HDL <40 mg/dL Low HDL Cholesterol HDL >or= 60 mg/dL High HDL Cholesterol Lipid Profileon 07-03-2024 Cholesterol [Mass/Vol] 235 mg/dL High 200 [facility] Comment on above: Result Comment: <200 mg/dL Desirable 200-240 mg/dL Borderline >240 mg/dL High Risk Performed By: #### L 506.1000, L500.4100 #### [facility] [address] [facility] [address] Cholesterol in HDL [Mass/Vol] 56 mg/dL Normal [facility] Comment on above: Result Comment: The drugs N-Acetylcysteine and Metamizole may falsely depress this assay. Reference Range HDL <40 mg/dL Low HDL Cholesterol HDL >or= 60 mg/dL High HDL Cholesterol Performed By: #### L 506.1000, L500.4100 #### [facility] [address] [place], [address] Cholesterol in LDL [Mass/Vol] 143 mg/dL High 0-130 [facility] Comment on above: Performed By: #### L 506.1000, L500.4100 #### [facility] [address] [facility] [address] Cholesterol in VLDL [Mass/Vol] 36 mg/dL Normal 5-40 [facility] Comment on above: Performed By: #### L 506.1000, L500.4100 #### [facility] [address] [facility] [address] Triglyceride [Mass/Vol] 181 mg/dL Normal [facility] Comment on above: Result Comment: The drugs N-Acetylcysteine and Metamizole may falsely depress this assay. Serum Triglycerides Reference Interval Normal <150 mg/dL Borderline high 150 - 199 mg/dL High 200 - 499 mg/dL Very High > or = 500 mg/dL Performed By: #### L 506.1000, L500.4100 #### [facility] [address] [facility] [place], [address] Low density lipoprotein (LDL ) cholesterol measurementOrdered By: Elgin Honeycutt on 07-03-2024 Cholesterol in LDL [Mass/Vol] 143 mg/dL High 0-130 [facility] Serum or plasma cholesterol measurement (mass/volume)Ordered By: Elgin Honeycutt on 07-03-2024 Cholesterol [Mass/Vol] 235 mg/dL High <200 [facility] Comment on above: <200 mg/dL Desirable 200-240 mg/dL Borderline >240 mg/dL High Risk Triglycerides measurementOrd ered By: Elgin Honeycutt on 07-03-2024 Triglyceride [Mass/Vol] 181 mg/dL <199 [facility] Comment on above: The drugs N-Acetylcy steine and Metamizole may falsely depress this assay.Serum Triglycerides Reference Interval Normal <150 mg/dL Borderline high 150 - 199 mg/dL High 200 - 499 mg/dL Very High > or = 500 mg/dL Very low density lipoprotein (VLDL) cholesterol measurementOrdered By: Elgin Honeycutt on 07-03-2024 VLDL Cholesterol 36 mg/dL 5-40 [facility] Vitamin D,25 Hydroxyon 07-03 Vitamin D 25-OH 11.8 ng/mL Normal [facility] Comment on above: Result Comment: Susana min D 25(OH) Status Range Deficiency <20 ng/mL (50nmol/L) Insufficiency 20 - 30 ng/mL (50 - 75 nmol/L) Sufficiency 30 - 100 ng/mL (75 - 250 nmol/L) Toxicity >100 ng/mL (>250 nmol/L) Performed By: #### L 506.1000, L500.4100 #### [facility] [address] [facility] [place], [address] 12 Lead EKGon 07-02-2024 12 Lead EKG [facility] Services [address] [place] [address] 12 Lead EKG 07/02/2429 MR#: [id number] Acct: [id number] Name: JULI DAVIDSON Rep #: [id number] : 1960 63 From: Edson Wong MD Attending Dr: Status: DEP ER Ordering Dr: Jesse Mak DO Date: 07/02/24 Location: ED Sex: M C Admitted: Test Reason : Blood Pressure : */* mmHG Vent. Rate : 101 BPM Atrial Rate : 101 BPM P-R Int : 150 ms QRS Dur : 78 ms QT Int : 352 ms P-R-T Axes : 58 43 69 degrees QTcB Int : 456 ms Sinus tachycardia Otherwise normal ECG Confirmed by YAW ADHIKARI, EDSON ([id number]), news assignment editor IDANIA ALANIS ([id number]) on 07/03/2024 7:56:09 AM Referred By: Confirmed By: EDSON WONG MD 07/03/24 0756 Date Edson Wong MD CC: Dr. Jesse Mak DO; Dr. Elgin Honeycutt MD Signed Normal [facility] Absolute neutrophil countOrd ered By: Jesse Mak on 07-02-2024 Neutrophils (Bld) [#/Vol] 6.0 10*3/uL 2.0-7.7 [facility] Basic Metabolic Profile (BMP )on 07-02-2024 BUN/CRE 7.1 RATIO Low 10-20 [facility] Comment on above: Order Comment: 'TROP ' Serial specimen #1, #2 or #3: 1 Performed By: #### L 501.4020, L100.0100, L500.2500 ####[facility] [address] [place], [place], [id number] CA,Total 9.4 mg/dL Normal 8.5-10.1 [facility] Comment on above: Order Comment: 'TROP ' Serial specimen #1, #2 or #3: 1 Performed By: #### L 501.4020, L100.0100, L500.2500 ####[facility] [address] [place], [address] Chloride [Moles/Vol] 106 mmol/L Normal 98-107 [facility] Comment on above: Order Comment: 'TROP ' Serial specimen #1, #2 or #3: 1 Performed By: #### L 501.4020, L100.0100, L500.2500 ####[facility] [address] [place], [address] CO2 [Moles/Vol] 26.0 mmol/L Normal 21.0-32.0 [facility] Comment on above: Order Comment: 'TROP ' Serial specimen #1, #2 or #3: 1 Performed By: #### L 501.4020, L100.0100, L500.2500 ####[facility] [address] [place], [address] Creatinine [Mass/Vol] 0.84 mg/dL Normal 0.70-1.30 [facility] Comment on above: Order Comment: 'TROP ' Serial specimen #1, #2 or #3: 1 Result Comment: The validity of the calculated GFR GFRAA in patients over 70 years has not been determined. Clinical correlation is essential. Performed By: #### L 501.4020, L100.0100, L500.2500 ####[facility] [address] [place], [address] ECRCL 104.79 ml/min Normal [facility] Comment on above: Order Comment: 'TROP ' Serial specimen #1, #2 or #3: 1 Performed By: #### L 501.4020, L100.0100, L500.2500 ####[facility] [address] [place], [address] EST GFR - AA 118 mL/min Normal >60 [facility] Comment on above: Order Comment: 'TROP ' Serial specimen #1, #2 or #3: 1 Result Comment: Afri can Cymro GFR Calc Performed By: #### L 501.4020, L100.0100, L500.2500 ####[facility] [address] [place], [address] GAP 3 Low 5-15 [facility] Comment on above: Order Comment: 'TROP ' Serial specimen #1, #2 or #3: 1 Performed By: #### L 501.4020, L100.0100, L500.2500 ####[facility] [address] [place], [address] GFR/1.73 sq M.predicted among non-blacks MDRD (S/P/Bld) [Vol rate/Area] 97 mL/min/{1.73_m2} Normal >60 [facility] Comment on above: Order Comment: 'TROP ' Serial specimen #1, #2 or #3: 1 Result Comment: Non- GFR Calc Performed By: #### L 501.4020, L100.0100, L500.2500 ####[facility] [address] [place], [address] Glucose [Mass/Vol] 109 mg/dL High 74-106 [facility] Comment on above: Order Comment: 'TROP ' Serial specimen #1, #2 or #3: 1 Result Comment: Fast ing Glucose result from 100 to 125 mg/dL suggests IMPAIRED HOMEOSTASIS per A.D.A. criteria. Performed By: #### L 501.4020, L100.0100, L500.2500 ####[facility] [address] [place], [address] Potassium [Moles/Vol] 4.1 mmol/L Normal 3.5-5.1 [facility] Comment on above: Order Comment: 'TROP ' Serial specimen #1, #2 or #3: 1 Performed By: #### L 501.4020, L100.0100, L500.2500 ####[facility] [address] [place], [address] Sodium [Moles/Vol] 134 mmol/L Low 136-145 [facility] Comment on above: Order Comment: 'TROP ' Serial specimen #1, #2 or #3: 1 Performed By: #### L 501.4020, L100.0100, L500.2500 ####[facility] [address] [place], [address] Urea nitrogen [Mass/Vol] 6 mg/dL Low 7-18 [facility] Comment on above: Order Comment: 'TROP ' Serial specimen #1, #2 or #3: 1 Performed By: #### L 501.4020, L100.0100, L500.2500 ####[facility] [address] [place], [address] Basophil percentageOrdered B y: Jesse Mak on 07-02-2024 Basophils/100 WBC (Bld) 1.0 % 0-1 [facility] Blood urea nitrogen (BUN)/cr eatinine ratioOrdered By: Jesse Mak on 07-02-2024 Urea nitrogen/Creatinine [Mass ratio] 7.1 mg/mg Low 10-20 [facility] CBC W/Diff, Automatedon 12-3 0-2023 Absolute Lymph 2.29 X10 3/uL Normal 0.83-4.51 [facility] Comment on above: Performed By: #### L 501.4020, L100.0100, L500.2500 ####[facility] [address] [place], [address] Absolute Neut 6.0 X10 3/uL Normal 2.0-7.7 [facility] Comment on above: Performed By: #### L 501.4020, L100.0100, L500.2500 ####[facility] [address] [place], [address] Basophils/100 WBC (Bld) 1.0 % Normal 0-1 [facility] Comment on above: Performed By: #### L 501.4020, L100.0100, L500.2500 ####[facility] [address] [place], [address] Eosinophils/100 WBC (Bld) 3.9 % Normal 0-5 [facility] Comment on above: Performed By: #### L 501.4020, L100.0100, L500.2500 ####[facility] [address] [place], [address] Erythrocyte distribution width (RBC) [Ratio] 13.2 % Normal 11.6-14.6 [facility] Comment on above: Performed By: #### L 501.4020, L100.0100, L500.2500 ####[facility] [address] [place], [address] Hematocrit (Bld) [Volume fraction] 53.2 % Normal 40-54 [facility] Comment on above: Performed By: #### L 501.4020, L100.0100, L500.2500 ####[facility] [address] [place], [address] Hemoglobin (Bld) [Mass/Vol] 17.8 g/dL High 13.0-16.5 [facility] Comment on above: Performed By: #### L 501.4020, L100.0100, L500.2500 ####[facility] [address] [place], [address] IG% 0.400 Normal 0.0-0.9 [facility] Comment on above: Result Comment: IG% - Immature Granulocytes (promyelocytes, myelocytes and metamyelocytes) > 1% indicates that a LEFT SHIFT is Present. Performed By: #### L 501.4020, L100.0100, L500.2500 ####[facility] [address] [place], [address] Lymphocytes/100 WBC (Bld) 23.1 % Normal 19-41 [facility] Comment on above: Performed By: #### L 501.4020, L100.0100, L500.2500 ####[facility] [address] [place] [place], [address] MCH (RBC) [Entitic mass] 32.1 pg High 27.0-32.0 [facility] Comment on above: Performed By: #### L 501.4020, L100.0100, L500.2500 ####[facility] [address] [place], [address] MCHC (RBC) [Mass/Vol] 33.5 g/dL Normal 32-36 [facility] Comment on above: Performed By: #### L 501.4020, L100.0100, L500.2500 ####[facility] [address] [place], [address] MCV (RBC) [Entitic vol] 96.0 fL High 80-94 [facility] Comment on above: Performed By: #### L 501.4020, L100.0100, L500.2500 ####[facility] [address] [place], [address] Monocytes/100 WBC (Bld) 11.3 % High 0-10 [facility] Comment on above: Performed By: #### L 501.4020, L100.0100, L500.2500 ####[facility] [address] [place], [address] Neutrophils/100 WBC (Bld) 60.3 % Normal 47-70 [facility] Comment on above: Performed By: #### L 501.4020, L100.0100, L500.2500 ####[facility] [address] [place], [address] Nucleated RBC (Bld) [#/Vol] 0 10*3/uL Normal 0-5 [facility] Comment on above: Performed By: #### L 501.4020, L100.0100, L500.2500 ####[facility] [address] [place] [address], [address] Platelet mean volume (Bld) [Entitic vol] 10.3 fL Normal 6.2-12.0 [facility] Comment on above: Performed By: #### L 501.4020, L100.0100, L500.2500 ####[facility] [address] [place], [address] Platelets (Bld) [#/Vol] 280 10*3/uL Normal 150-450 [facility] Comment on above: Performed By: #### L 501.4020, L100.0100, L500.2500 ####[facility] [address] [place], [address] RBC (Bld) [#/Vol] 5.54 10*6/uL Normal 4.6-6.2 [facility] Comment on above: Performed By: #### L 501.4020, L100.0100, L500.2500 ####[facility] [address] [place], [address] RDW SD 47.2 fl High 35.1-43.9 [facility] Comment on above: Performed By: #### L 501.4020, L100.0100, L500.2500 ####[facility] [address] [place], [address] WBC (Bld) [#/Vol] 9.9 10*3/uL Normal 4.4-11.0 [facility] Comment on above: Performed By: #### L 501.4020, L100.0100, L500.2500 ####[facility] [address] [place], [address] Carbon dioxide measurementOr dered By: Jesse Mak on 07-02-2024 CO2 [Moles/Vol] 26.0 mmol/L 21.0-32.0 [facility] Cerv Spine 2 or 3 Viewson Cerv Spine 2 or 3 Views [facility] [address] [place] [address] Cerv Spine 2 or 3 Views MR#: [id number] Acct: [id number] Name: JULI DAVIDSON Rep #: [id number] : 1960 M 63 From: Jorge A Nuñez MD PCP: Dr. Elgin Honeycutt MD Status: REG ER Study: Cerv Spine 2 or 3 Views Date of Exam: 07/02/24 Exam# [id number] Ordering Dr: [place] [id number] STUDY: X-RAY - CERVICAL SPINE REASON FOR EXAM: Male, 63 years old. Neck pain TECHNIQUE: 3 view(s) of the cervical spine were obtained. COMPARISON: None FINDINGS: Normal anterior atlantoaxial articulation. Normal odontoid process. Normal cervical lordosis. Normal vertebral bodies and endplates. There is multi-level degenerative disc disease with multilevel disc space narrowing. The soft tissue structures are unremarkable. RAD/Cerv Spine 2 or 3 Views IMPRESSION: Degenerative changes, no acute findings Electronically Signed: Danie Nuñez MD at 10:51 EST , CC: Dr. Jesse Mak DO; Dr. Elgin Honeycutt MD Foxing Closer: Signed Normal [facility] Chest 1 View (Portable)on Chest 1 View (Portable) [facility] [address] [id number] Chest 1 View (Portable) MR#: [id number] Acct: [id number] Name: JULI DAVIDSON Rep #: [id number] : 1960 M 63 From: Jorge A Nuñez MD PCP: Dr. Elgin Honeycutt MD Status: REG ER Study: Chest 1 View (Portable) Date of Exam: 07/02/24 Exam# [id number] Ordering Dr: [place] [id number] STUDY: X-RAY CHEST REASON FOR EXAM: Male, 63 years old. Substernal chest pain TECHNIQUE: Single AP portable view of the chest. COMPARISON: 03/28/2024 FINDINGS: EKG leads overlie the chest The lungs are clear and expanded. There is no demonstrated pleural abnormality. Normal size heart. Normal mediastinum and wyatt. Normal visualized pulmonary arteries. Normal visualized aortic arch and descending thoracic aorta. Normal visualized thoracic spine. Normal visualized ribs, clavicles, and shoulders. There is no demonstrated abnormality of the visualized soft tissue structures of the upper abdomen. RAD/Chest 1 View (Portable) IMPRESSION: No acute pulmonary process, no interval change Electronically Signed: Danie Nuñez MD at 10:49 EST , CC: Dr. Jesse Mak DO; Dr. Elgin Honeycutt MD Foxing Closer: Signed Normal [facility] Chloride measurementOrdered By: Jesse Mak on 07-02-2024 Chloride [Moles/Vol] 106 mmol/L 98-107 [facility] Emergency Department Summary on 07-02-2024 Emergency Department Summary [facility] Medical Records Department [address] [place] [address] Emergency Department Summary 07/02/24 MR#: [id number] Acct: [id number] Name: JULI DAVIDSON Rep #: [id number] : 1960 63 From: Jesse Mak DO PCP: Dr. Elgin Honeycutt MD Status:DEP ER Location: ED HPI History of Present Illness Chief Complaint: Chest Pain Informant: patient Narrative Narrative: 63-year-old male presenting to the emergency room with left neck left shoulder and chest pain. Patient states that around 1900 hrs. last evening he began to have a pain in the left side of his neck which he describes as burning and worse with movement particularly turning his head and rotation to the left and the right. He states that it moved down towards his left shoulder. He notes it is very painful this morning for him to move his shoulder. He states he had an appoint with his primary care doctor and went to that appointment but they were not in so they advised him to come to emergency. He states the pain radiates across his upper left chest. He denies any known trauma to the area. He states he has had prior stroke as well as heart attack. He was in the hospital/rehab this year for extended period due to a broken back following a fall. He denies any fever or rashes. He notes no change in his chronic cough. He states he occasionally wheezes but does not wish a breathing treatment because it makes him jittery. PFSH PFSH Medical History Rhabdomyolysis Hyponatremia Fall Debility T12 compression fracture Recurrent falls Thrombocytopenia Alcohol abuse Home Medications ???Medication ???Instructions ???Recorded ???Last Taken ???Type folic acid 1 mg tablet 1 mg PO DAILYCM 30 days #30 tabs 09/13/23 Unknown Rx nicotine 21 mg/24 hr daily 21 mg transdermal DAILY 30 days 09/13/23 Unknown Rx transdermal patch #30 ea thiamine HCl (vitamin B1) 100 mg 100 mg PO DAILY 30 days #30 tabs 09/13/23 Unknown Rx tablet (Vitamin B-1) cyclobenzaprine 10 mg tablet 10 mg PO TID PRN Muscle Spasm #15 07/02/24 Unknown Rx TABLETS gabapentin 800 mg tablet 800 mg PO TID 07/02/24 Unknown History lidocaine 5 % topical patch 1 patch topical DAILY 5 days #5 ea 07/02/24 Unknown Rx (Lidoderm) oxycodone-acetaminophen 5 mg-325 1 tab PO Q6H PRN PRN Pain 3 days 07/02/24 Unknown Rx mg tablet #12 TABLETS Allergy/AdvReac Type Severity Reaction Status Date / Time No Known Allergies Allergy Verified 07/02/24 09:21 Social History household members: none Smoking Status: Current every day smoker tobacco type: cigars alcohol intake: current Alcohol type: beer details: 12 beers daily. substance use type: does not use ROS ROS ED Constitutional Constitutional ED: Denies chills, fever(s) or weight loss Eyes Eyes: Denies change in vision or diplopia ENT ENT ED: Denies ear pain, rhinorrhea or sore throat Cardiovascular Cardiovascular: Reports chest pain; Denies orthopnea, palpitations or racing heartbeat Respiratory/Chest Respiratory/Chest: Reports cough; Denies dyspnea or orthopnea Gastrointestinal Gastrointestinal: Denies abdominal pain, diarrhea, nausea or vomiting Genitourinary Genitourinary ED: Denies dysuria, hematuria or urinary frequency Musculoskeletal Musculoskeletal: Reports neck pain and other Details: Left shoulder pain ; Denies arthralgias or myalgias Integumentary Denies abscess or rash Neurologic Neurologic: Denies headache(s), paresthesias or weakness Psychiatric Psychiatric: Denies anxiety, depression, suicidal ideation or suicidal thoughts Endocrine Endocrinology: Denies polydipsia, polyphagia or polyuria Allergic/Immunologic Allergic/Immunologic ED: Denies mouth swelling, tongue swelling or urticaria EXAM Physical Exam Const Vital Signs: 07/02/24 09:18 07/02/24 10:18 07/02/24 11:00 Temperature 97.5 F L Temperature Source Oral Pulse Rate 109 H 94 94 Respiratory Rate 20 H 19 H Blood Pressure 115/84 H 135/102 H 141/80 H Blood Pressure Mean 94 113 100 Pulse Ox 97 96 Oxygen Delivery Method Room Air Room Air Positive well nourished and well developed General Appearance ED: well developed and NAD HEENT Reports normocephalic, head/scalp atraumatic, TM's clear and moist mucous membranes HEENT Narrative: Ear canals without rash or swelling Tympanic Membrane ED: Yes TM's clear Eyes PERRL and EOMs intact bilaterally Neck no lymphadenopathy, supple and no JVD Neck Narrative: Pain with movement of his neck. Tender to palpation over the left paraspinal musculature particularly the trapezius muscle. I do not appreciate any rash in the area. Resp normal respiratory effort and clear to auscultation bilaterally Cardio regular rate, regular rhythm and no murm (more content not included)... Normal [facility] Eosinophil percentageOrdered By: Jesse Mak on 07-02-2024 Eosinophils/100 WBC (Bld) 3.9 % 0-5 [facility] Erythrocyte distribution wid th ratioOrdered By: Jesse Mak on 07-02-2024 Erythrocyte distribution width (RBC) [Ratio] 13.2 % 11.6-14.6 [facility] Erythrocyte distribution wid th standard deviationOrdered By: Jesse Mak on 07-02-2024 Erythrocyte distribution width (RBC) [Entitic vol] 47.2 fL High 35.1-43.9 [facility] Estimated glomerular filtrat ion rate (GFR) AmericanOrdered By: Jesse Mak on 07-02-2024 Estimated GFR (MDRD) Amer 118 mL/min >60 [facility] Comment on above: GFR Calc Estimation of creatinine yousif aranceOrdered By: Jesse Mak on 07-02-2024 Estimated Creatinine Clearance Calc 104.79 ml/min [facility] Glomerular filtration rate ( GFR) estimationOrdered By: Jesse Mak on 07-02-2024 Estimated GFR (MDRD) Non-Af Amer 97 mL/min >60 [facility] Comment on above: Non- GFR Calc Glucose measurementOrdered B y: Jesse Mak on 07-02-2024 Glucose [Mass/Vol] 109 mg/dL High 74-106 [facility] Comment on above: Fasting Glucose resu lt from 100 to 125 mg/dL suggests IMPAIRED HOMEOSTASIS per A.D.A. criteria. Hematocrit Auto (Bld) [Volum e fraction]Ordered By: Jesse Mak on 07-02-2024 Hematocrit (Bld) [Volume fraction] 53.2 % 40-54 [facility] Hemoglobin measurementOrdere d By: Jesse Mak on 07-02-2024 Hemoglobin (Bld) [Mass/Vol] 17.8 g/dL High 13.0-16.5 [facility] Immature granulocytes/100 WB C Auto (Bld)Ordered By: Jesse Mak on 07-02-2024 Immature granulocytes/100 WBC (Bld) 0.400 % 0.0-0.9 [facility] Comment on above: IG% - Immature Granu locytes (promyelocytes, myelocytes and metamyelocytes) > 1% indicates that a LEFT SHIFT is Present. L501.4020on 07-02-2024 TROPONIN-I HS < 3 Low 3.0-78.0 [facility] Comment on above: Order Comment: 'TROP ' Serial specimen #1, #2 or #3: 1 Result Comment: Plecherry galicia Note: New Test Units and Gender Specific Reference Ranges. For more information see Policy Stat Procedure [place] High Sensitivity Troponin (TNIH) and attachments. Performed By: #### L 501.4020, L100.0100, L500.2500 ####[facility] [address] [place], [address] Lymphocytes Auto (Unsp spec) [#/Vol]Ordered By: Jesse Mak on 07-02-2024 Lymphocytes (Bld) [#/Vol] 2.29 10*3/uL 0.83-4.51 [facility] Lymphocytes/100 WBC Auto (Un sp spec)Ordered By: Jesse Mak on 07-02-2024 Lymphocytes/100 WBC (Bld) 23.1 % 19-41 [facility] MCV (mean corpuscular volume ) determinationOrdered By: Jesse Mak on 07-02-2024 MCV (RBC) [Entitic vol] 96.0 fL High 80-94 [facility] Mean corpuscular hemoglobin (MCH) determinationOrdered By: Jesse Mak on 07-02-2024 MCH (RBC) [Entitic mass] 32.1 pg High 27.0-32.0 [facility] Mean corpuscular hemoglobin concentration (MCHC) determinationOrdered By: Jesse Mak on 07-02-2024 MCHC (RBC) [Mass/Vol] 33.5 g/dL 32-36 [facility] Mean platelet volume determi nationOrdered By: Jesse Mak on 07-02-2024 Platelet mean volume (Bld) [Entitic vol] 10.3 fL 6.2-12.0 [facility] Monocyte percentageOrdered B y: Jesse Mak on 07-02-2024 Monocytes/100 WBC (Bld) 11.3 % High 0-10 [facility] Neutrophil percentageOrdered By: Jesse Mak on 07-02-2024 Neutrophils/100 WBC (Bld) 60.3 % 47-70 [facility] Nucleated red blood cell per centageOrdered By: Jesse Mak on 07-02-2024 Nucleated RBC/100 WBC (Bld) [Ratio] 0 % 0-5 [facility] Platelet countOrdered By: Daron Mak on 07-02-2024 Platelets (Bld) [#/Vol] 280 10*3/uL 150-450 [facility] Potassium measurementOrdered By: Jesse Mak on 07-02-2024 Potassium [Moles/Vol] 4.1 mmol/L 3.5-5.1 [facility] RBC Auto (Bld) [#/Vol]Ordere d By: Jesse Mak on 07-02-2024 RBC (Bld) [#/Vol] 5.54 10*6/uL 4.6-6.2 [facility] Serum anion gap measurementO rdered By: Jesse Mak on 07-02-2024 Anion gap [Moles/Vol] 3 mmol/L Low 5-15 [facility] Serum or plasma calcium johnathon urement (mass/volume)Ordered By: Jesse Mak on 07-02-2024 Calcium [Mass/Vol] 9.4 mg/dL 8.5-10.1 [facility] Serum or plasma creatinine m easurement (mass/volume)Ordered By: Jesse Mak on 07-02-2024 Creatinine [Mass/Vol] 0.84 mg/dL 0.70-1.30 [facility] Comment on above: The validity of the calculated GFR & GFRAA in patients over 70 years has not been determined. Clinical correlation is essential. Serum or plasma urea nitroge n measurement (mass/volume)Ordered By: Jesse Mak on 07-02-2024 Urea nitrogen [Mass/Vol] 6 mg/dL Low 7-18 [facility] Shoulder min 2 Viewson 07-02 Shoulder min 2 Views [facility] [address] [place] [address] Shoulder min 2 Views MR#: [id number] Acct: [id number] Name: JULI DAVIDSON Rep #: [id number] : 1960 M 63 From: Jorge A Nuñez MD PCP: Dr. Elgin Honeycutt MD Status: REG ER Study: Shoulder min 2 Views Date of Exam: 07/02/24 Exam# [id number] Ordering Dr: [place] [id number] STUDY: X-RAY - LEFT SHOULDER REASON FOR EXAM: Male, 63 years old. pain TECHNIQUE: 4 view(s) of the shoulder. COMPARISON: None. FINDINGS: There is moderate degenerative arthrosis of the glenohumeral articulation. There is degenerative arthrosis of the acromioclavicular joint without inferior osseous spur formation. Normal acromion. Normal humeral head and visualized proximal humerus. The soft tissue structures are unremarkable. Normal visualized pulmonary apex. RAD/Shoulder min 2 Views IMPRESSION: Arthrosis, no fracture or suspicious osseous lesion Electronically Signed: Danie Nuñez MD at 10:50 EST , CC: Dr. Jesse Mak DO; Dr. Elgin Honeycutt MD Foxing Closer: Signed Normal [facility] Sodium levelOrdered By: Randy Mak on 07-02-2024 Sodium [Moles/Vol] 134 mmol/L Low 136-145 [facility] Troponin IOrdered By: Jesse Mak on 07-02-2024 Troponin I High Sensitivity < 3 pg/mL Low 3.0-78.0 [facility] Comment on above: Please Note: New Liz t Units and Gender Specific Reference Ranges. For more information see Policy Stat Procedure [place] High Sensitivity Troponin (TNIH) and attachments. White blood cell (WBC) count Ordered By: Jesse Mak on 07-02-2024 WBC (Bld) [#/Vol] 9.9 10*3/uL 4.4-11.0 [facility] Myoglobin, Serumon Myoglobin, Ser 40 ng/mL Normal 28-72 [facility] Comment on above: Result Comment: Perf ormed at: - [facility] [address] [id number] Facility Manager: Kishan Rodriguez PhD, Phone: [phone] Performed By: #### L 3600.5100, L501.9520, L500.4100, L100.0100, L506.1000, L500.4050, L501.4020, L501.3620 ####[facility] [address] [place], [address] CBC W/Diff, Automatedon 03-05 Absolute Lymph 2.89 X10 3/uL Normal 0.83-4.51 [facility] Comment on above: Performed By: #### L 3600.5100, L501.9520, L500.4100, L100.0100, L506.1000, L500.4050, L501.4020, L501.3620 ####[facility] [address] [place], [address] Absolute Neut 3.3 X10 3/uL Normal 2.0-7.7 [facility] Comment on above: Performed By: #### L 3600.5100, L501.9520, L500.4100, L100.0100, L506.1000, L500.4050, L501.4020, L501.3620 ####[facility] [address] [place], [address] Basophils/100 WBC (Bld) 1.7 % High 0-1 [facility] Comment on above: Performed By: #### L 3600.5100, L501.9520, L500.4100, L100.0100, L506.1000, L500.4050, L501.4020, L501.3620 ####[facility] [address] [place], [address] Eosinophils/100 WBC (Bld) 5.9 % High 0-5 [facility] Comment on above: Performed By: #### L 3600.5100, L501.9520, L500.4100, L100.0100, L506.1000, L500.4050, L501.4020, L501.3620 ####[facility] [address], [address] Erythrocyte distribution width (RBC) [Ratio] 13.2 % Normal 11.6-14.6 [facility] Comment on above: Performed By: #### L 3600.5100, L501.9520, L500.4100, L100.0100, L506.1000, L500.4050, L501.4020, L501.3620 ####[facility] [address] [place], [address] Hematocrit (Bld) [Volume fraction] 53.0 % Normal 40-54 [facility] Comment on above: Performed By: #### L 3600.5100, L501.9520, L500.4100, L100.0100, L506.1000, L500.4050, L501.4020, L501.3620 ####[facility] [address] [place], [address] Hemoglobin (Bld) [Mass/Vol] 17.7 g/dL High 13.0-16.5 [facility] Comment on above: Performed By: #### L 3600.5100, L501.9520, L500.4100, L100.0100, L506.1000, L500.4050, L501.4020, L501.3620 ####[facility] [address] [place], [address] IG% 0.300 Normal 0.0-0.9 [facility] Comment on above: Result Comment: IG% - Immature Granulocytes (promyelocytes, myelocytes and metamyelocytes) > 1% indicates that a LEFT SHIFT is Present. Performed By: #### L 3600.5100, L501.9520, L500.4100, L100.0100, L506.1000, L500.4050, L501.4020, L501.3620 ####[facility] [address] [place], [address] Lymphocytes/100 WBC (Bld) 37.8 % Normal 19-41 [facility] Comment on above: Performed By: #### L 3600.5100, L501.9520, L500.4100, L100.0100, L506.1000, L500.4050, L501.4020, L501.3620 ####[facility] [address] [place], [address] MCH (RBC) [Entitic mass] 31.6 pg Normal 27.0-32.0 [facility] Comment on above: Performed By: #### L 3600.5100, L501.9520, L500.4100, L100.0100, L506.1000, L500.4050, L501.4020, L501.3620 ####[facility] [address] [place], [address] MCHC (RBC) [Mass/Vol] 33.4 g/dL Normal 32-36 [facility] Comment on above: Performed By: #### L 3600.5100, L501.9520, L500.4100, L100.0100, L506.1000, L500.4050, L501.4020, L501.3620 ####[facility] [address] [place], [address] MCV (RBC) [Entitic vol] 94.6 fL High 80-94 [facility] Comment on above: Performed By: #### L 3600.5100, L501.9520, L500.4100, L100.0100, L506.1000, L500.4050, L501.4020, L501.3620 ####[facility] [address] [place], [address] Monocytes/100 WBC (Bld) 11.5 % High 0-10 [facility] Comment on above: Performed By: #### L 3600.5100, L501.9520, L500.4100, L100.0100, L506.1000, L500.4050, L501.4020, L501.3620 ####[facility] [address] [place], [address] Neutrophils/100 WBC (Bld) 42.8 % Low 47-70 [facility] Comment on above: Performed By: #### L 3600.5100, L501.9520, L500.4100, L100.0100, L506.1000, L500.4050, L501.4020, L501.3620 ####[facility] [address] [place], [address] Nucleated RBC (Bld) [#/Vol] 0 10*3/uL Normal 0-5 [facility] Comment on above: Performed By: #### L 3600.5100, L501.9520, L500.4100, L100.0100, L506.1000, L500.4050, L501.4020, L501.3620 ####[facility] [address] [place], [address] Platelet mean volume (Bld) [Entitic vol] 10.6 fL Normal 6.2-12.0 [facility] Comment on above: Performed By: #### L 3600.5100, L501.9520, L500.4100, L100.0100, L506.1000, L500.4050, L501.4020, L501.3620 ####[facility] [address] [place], [address] Platelets (Bld) [#/Vol] 273 10*3/uL Normal 150-450 [facility] Comment on above: Performed By: #### L 3600.5100, L501.9520, L500.4100, L100.0100, L506.1000, L500.4050, L501.4020, L501.3620 ####[facility] [address] [place], [address] RBC (Bld) [#/Vol] 5.60 10*6/uL Normal 4.6-6.2 [facility] Comment on above: Performed By: #### L 3600.5100, L501.9520, L500.4100, L100.0100, L506.1000, L500.4050, L501.4020, L501.3620 ####[facility] [address] [place], [address] RDW SD 46.3 fl High 35.1-43.9 [facility] Comment on above: Performed By: #### L 3600.5100, L501.9520, L500.4100, L100.0100, L506.1000, L500.4050, L501.4020, L501.3620 ####[facility] [address] [place], [address] WBC (Bld) [#/Vol] 7.6 10*3/uL Normal 4.4-11.0 [facility] Comment on above: Performed By: #### L 3600.5100, L501.9520, L500.4100, L100.0100, L506.1000, L500.4050, L501.4020, L501.3620 ####[facility] [address] [place], [address] CPK Total, Creatine Kinaseon 03-28-2024 CPK TOTAL 76 U/L Normal 39-308 [facility] Comment on above: Order Comment: 1 Performed By: #### L 3600.5100, L501.9520, L500.4100, L100.0100, L506.1000, L500.4050, L501.4020, L501.3620 ####[facility] [address] [place], [address] Chest PA and Lateralon 03-28 Chest PA and Lateral [facility] [address] [place] [address] Chest PA and Lateral MR#: [id number] Acct: [id number] Name: JULI DAVIDSON Rep #: [id number] : 1960 M 63 From: Dillan pineda DO PCP: Dr. Elgin Honeycutt MD Status: REG CLI Study: Chest PA and Lateral Date of Exam: 03/28/24 Exam# [id number] Ordering Dr: [place] [id number] EXAM: XR CHEST, 2 VIEWS CLINICAL INDICATION: CHEST PAIN, SOB TECHNIQUE: Frontal and lateral views of the chest. COMPARISON: 08/29/2023 FINDINGS: LUNGS AND PLEURAL SPACES: Reticular interstitial prominence bilaterally similar to the prior examination consistent with chronic interstitial changes with perhaps peripheral fibrosis. No definite focal pneumonia. No pneumothorax. No effusion. HEART: No significant abnormality. Cardiac silhouette not enlarged. MEDIASTINUM: Central airways and mediastinal contour are unremarkable. BONES/JOINTS: Lower thoracic vertebral augmentation with associated compression fracture. No acute osseous findings. Degenerative changes. SOFT TISSUES: No significant abnormality. RAD/Chest PA and Lateral IMPRESSION: 1. Reticular interstitial prominence bilaterally similar to the prior examination consistent with chronic interstitial changes with perhaps peripheral fibrosis. No definite focal pneumonia. 2. Lower thoracic vertebral augmentation with associated compression fracture. No acute osseous findings. Degenerative changes. Electronically Signed: Dillan Wood DO at 20:02 EDT , CC: Dr. Elgin Honeycutt MD Foxing Closer: Signed Normal [facility] Comprehensive Metabolic Prof ilon 03-28-2024 Albumin [Mass/Vol] 3.7 g/dL Normal 3.2-5.0 [facility] Comment on above: Order Comment: 1 Performed By: #### L 3600.5100, L501.9520, L500.4100, L100.0100, L506.1000, L500.4050, L501.4020, L501.3620 ####[facility] [address] [place], [address] Albumin/Globulin [Mass ratio] 0.9 {ratio} Normal 0.9-2.4 [facility] Comment on above: Order Comment: 1 Performed By: #### L 3600.5100, L501.9520, L500.4100, L100.0100, L506.1000, L500.4050, L501.4020, L501.3620 ####[facility] [address] [place], [address] ALK P 97 U/L Normal 45-117 [facility] Comment on above: Order Comment: 1 Performed By: #### L 3600.5100, L501.9520, L500.4100, L100.0100, L506.1000, L500.4050, L501.4020, L501.3620 ####[facility] [address] [place], [address] ALT [Catalytic activity/Vol] 18 U/L Normal 16-61 [facility] Comment on above: Order Comment: 1 Performed By: #### L 3600.5100, L501.9520, L500.4100, L100.0100, L506.1000, L500.4050, L501.4020, L501.3620 ####[facility] [address] [place], [address] AST [Catalytic activity/Vol] 18 U/L Normal 15-37 [facility] Comment on above: Order Comment: 1 Performed By: #### L 3600.5100, L501.9520, L500.4100, L100.0100, L506.1000, L500.4050, L501.4020, L501.3620 ####[facility] [address] [place], [address] Bilirubin [Mass/Vol] 0.30 mg/dL Normal 0.20-1.00 [facility] Comment on above: Order Comment: 1 Result Comment: For patients on eltrombopag therapy, use of Dimension [place] TBIL is not recommended. Performed By: #### L 3600.5100, L501.9520, L500.4100, L100.0100, L506.1000, L500.4050, L501.4020, L501.3620 ####[facility] [address] [place], [address] BUN/CRE 6.4 RATIO Low 10-20 [facility] Comment on above: Order Comment: 1 Performed By: #### L 3600.5100, L501.9520, L500.4100, L100.0100, L506.1000, L500.4050, L501.4020, L501.3620 ####[facility] [address] [place], [address] CA,Total 9.1 mg/dL Normal 8.5-10.1 [facility] Comment on above: Order Comment: 1 Performed By: #### L 3600.5100, L501.9520, L500.4100, L100.0100, L506.1000, L500.4050, L501.4020, L501.3620 ####[facility] [address] [place], [address] Chloride [Moles/Vol] 100 mmol/L Normal 98-107 [facility] Comment on above: Order Comment: 1 Performed By: #### L 3600.5100, L501.9520, L500.4100, L100.0100, L506.1000, L500.4050, L501.4020, L501.3620 ####[facility] [address] [place], [address] CO2 [Moles/Vol] 24.0 mmol/L Normal 21.0-32.0 [facility] Comment on above: Order Comment: 1 Performed By: #### L 3600.5100, L501.9520, L500.4100, L100.0100, L506.1000, L500.4050, L501.4020, L501.3620 ####[facility] [address] [place], [address] Creatinine [Mass/Vol] 0.78 mg/dL Normal 0.70-1.30 [facility] Comment on above: Order Comment: 1 Result Comment: The validity of the calculated GFR GFRAA in patients over 70 years has not been determined. Clinical correlation is essential. Performed By: #### L 3600.5100, L501.9520, L500.4100, L100.0100, L506.1000, L500.4050, L501.4020, L501.3620 ####[facility] [address] [place], [address] EST GFR - AA 128 mL/min Normal >60 [facility] Comment on above: Order Comment: 1 Result Comment: Afri can Cymro GFR Calc Performed By: #### L 3600.5100, L501.9520, L500.4100, L100.0100, L506.1000, L500.4050, L501.4020, L501.3620 ####[facility] [address] [place], [address] GAP 8 Normal 5-15 [facility] Comment on above: Order Comment: 1 Performed By: #### L 3600.5100, L501.9520, L500.4100, L100.0100, L506.1000, L500.4050, L501.4020, L501.3620 ####[facility] [address] [place], [address] GFR/1.73 sq M.predicted among non-blacks MDRD (S/P/Bld) [Vol rate/Area] 106 mL/min/{1.73_m2} Normal >60 [facility] Comment on above: Order Comment: 1 Result Comment: Non- GFR Calc Performed By: #### L 3600.5100, L501.9520, L500.4100, L100.0100, L506.1000, L500.4050, L501.4020, L501.3620 ####[facility] [address] [place], [address] Globulin (S) [Mass/Vol] 4.1 g/dL Normal 2.2-4.2 [facility] Comment on above: Order Comment: 1 Performed By: #### L 3600.5100, L501.9520, L500.4100, L100.0100, L506.1000, L500.4050, L501.4020, L501.3620 ####[facility] [address] [place], [address] Glucose [Mass/Vol] 80 mg/dL Normal 74-106 [facility] Comment on above: Order Comment: 1 Performed By: #### L 3600.5100, L501.9520, L500.4100, L100.0100, L506.1000, L500.4050, L501.4020, L501.3620 ####[facility] [address] [place], [address] Potassium [Moles/Vol] 3.6 mmol/L Normal 3.5-5.1 [facility] Comment on above: Order Comment: 1 Performed By: #### L 3600.5100, L501.9520, L500.4100, L100.0100, L506.1000, L500.4050, L501.4020, L501.3620 ####[facility] [address] [place], [address] Sodium [Moles/Vol] 131 mmol/L Low 136-145 [facility] Comment on above: Order Comment: 1 Performed By: #### L 3600.5100, L501.9520, L500.4100, L100.0100, L506.1000, L500.4050, L501.4020, L501.3620 ####[facility] [address] [place], [address] T PROT 7.8 g/dL Normal 6.4-8.2 [facility] Comment on above: Order Comment: 1 Performed By: #### L 3600.5100, L501.9520, L500.4100, L100.0100, L506.1000, L500.4050, L501.4020, L501.3620 ####[facility] [address] [place], [address] Urea nitrogen [Mass/Vol] 5 mg/dL Low 7-18 [facility] Comment on above: Order Comment: 1 Performed By: #### L 3600.5100, L501.9520, L500.4100, L100.0100, L506.1000, L500.4050, L501.4020, L501.3620 ####[facility] [address] [place], [address] L501.4020on 09-25-2024 TROPONIN-I HS 3 pg/mL Normal 3.0-78.0 [facility] Comment on above: Order Comment: 1 Result Comment: Plea Note: New Test Units and Gender Specific Reference Ranges. For more information see Policy Stat Procedure [place] High Sensitivity Troponin (TNIH) and attachments. Performed By: #### L 3600.5100, L501.9520, L500.4100, L100.0100, L506.1000, L500.4050, L501.4020, L501.3620 ####[facility] [address] [place], [address] Lipid Profileon 03-28-2024 Cholesterol [Mass/Vol] 247 mg/dL High 200 [facility] Comment on above: Order Comment: 1 Result Comment: <200 mg/dL Desirable 200-240 mg/dL Borderline >240 mg/dL High Risk Performed By: #### L 3600.5100, L501.9520, L500.4100, L100.0100, L506.1000, L500.4050, L501.4020, L501.3620 ####[facility] [address] [place], [address] Cholesterol in HDL [Mass/Vol] 59 mg/dL Normal [facility] Comment on above: Order Comment: 1 Result Comment: The drugs N-Acetylcysteine and Metamizole may falsely depress this assay. Reference Range HDL <40 mg/dL Low HDL Cholesterol HDL >or= 60 mg/dL High HDL Cholesterol Performed By: #### L 3600.5100, L501.9520, L500.4100, L100.0100, L506.1000, L500.4050, L501.4020, L501.3620 ####[facility] [address] [place], [address] Cholesterol in LDL [Mass/Vol] 150 mg/dL High 0-130 [facility] Comment on above: Order Comment: 1 Performed By: #### L 3600.5100, L501.9520, L500.4100, L100.0100, L506.1000, L500.4050, L501.4020, L501.3620 ####[facility] [address] [place], [address] Cholesterol in VLDL [Mass/Vol] 38 mg/dL Normal 5-40 [facility] Comment on above: Order Comment: 1 Performed By: #### L 3600.5100, L501.9520, L500.4100, L100.0100, L506.1000, L500.4050, L501.4020, L501.3620 ####[facility] [address] [place], [address] Triglyceride [Mass/Vol] 188 mg/dL Normal [facility] Comment on above: Order Comment: 1 Result Comment: The drugs N-Acetylcysteine and Metamizole may falsely depress this assay. Serum Triglycerides Reference Interval Normal <150 mg/dL Borderline high 150 - 199 mg/dL High 200 - 499 mg/dL Very High > or = 500 mg/dL Performed By: #### L 3600.5100, L501.9520, L500.4100, L100.0100, L506.1000, L500.4050, L501.4020, L501.3620 ####[facility] [address] [place], [address] Thyroid Stim Hormone (TSH)on 03-28-2024 TSH 3.010 uIU/mL Normal 0.358-3.740 [facility] Comment on above: Order Comment: 1 Performed By: #### L 3600.5100, L501.9520, L500.4100, L100.0100, L506.1000, L500.4050, L501.4020, L501.3620 ####[facility] [id number] [place], [address] Vitamin D,25 Hydroxyon 03-28 Vitamin D 25-OH 25.3 ng/mL Normal [facility] Comment on above: Result Comment: Susana min D 25(OH) Status Range Deficiency <20 ng/mL (50nmol/L) Insufficiency 20 - 30 ng/mL (50 - 75 nmol/L) Sufficiency 30 - 100 ng/mL (75 - 250 nmol/L) Toxicity >100 ng/mL (>250 nmol/L) Performed By: #### L 3600.5100, L501.9520, L500.4100, L100.0100, L506.1000, L500.4050, L501.4020, L501.3620 ####[facility] [address] [place], [address] Serum or plasma thyroid stim ulating hormone (TSH) measurement (units/volume)Ordered By: Elgin Honeycutt on 11-01-2023 TSH Qn 3.50 uIU/mL 0.358-3.74 [facility] Activated partial thrombopla stin time (aPTT) in platelet poor plasma by coagulation aOrdered By: Quirino Perry on 10-24-2023 aPTT Coag (PPP) [Time] 29.5 s 24.1-36.2 [facility] Basophil percentageOrdered B y: Quirino Perry on 10-24-2023 Hemoglobin (Bld) [Mass/Vol] 14.7 g/dL 13.0-16.5 [facility] WBC (Bld) [#/Vol] 8.2 10*3/uL 4.4-11.0 [facility] Determination of erythrocyte mean corpuscular volume (MCV)Ordered By: Quirino Perry on 10-24-2023 MCV (RBC) [Entitic vol] 106.3 fL 80-94 [facility] Erythrocyte distribution wid th ratioOrdered By: Quirino Perry on 10-24-2023 Erythrocyte distribution width (RBC) [Ratio] 13.2 % 11.6-14.6 [facility] Erythrocyte distribution wid th standard deviationOrdered By: Quirino Perry on 10-24-2023 Erythrocyte distribution width (RBC) [Entitic vol] 52.3 fL 35.1-43.9 [facility] Hematocrit Auto (Bld) [Volum e fraction]Ordered By: Quirino Perry on 10-24-2023 Hematocrit (Bld) [Volume fraction] 47.0 % 40-54 [facility] Laboratory - CoagulationOrde red By: Quirino Perry on 10-24-2023 INR Coag (Bld) [Relative time] 1.0 {INR} [facility] PT Coag (PPP) [Time] 13.2 s 11.7-14.9 [facility] Laboratory - Hematology and Cell countsOrdered By: Quirino Perry on 10-24-2023 MCH (RBC) [Entitic mass] 33.3 pg 27.0-32.0 [facility] MCHC (RBC) [Mass/Vol] 31.3 g/dL 32-36 [facility] Platelet mean volume (Bld) [Entitic vol] 10.7 fL 6.2-12.0 [facility] Platelets (Bld) [#/Vol] 325 10*3/uL 150-450 [facility] RBC Auto (Bld) [#/Vol]Ordere d By: Quirino Perry on 10-24-2023 RBC (Bld) [#/Vol] 4.42 10*6/uL 4.6-6.2 [facility] Basophil percentageOrdered B y: Elgin Honeycutt on 09-23-2023 Chloride [Moles/Vol] 109 mmol/L 98-107 [facility] Glucose [Mass/Vol] 97 mg/dL 74-106 [facility] Potassium [Moles/Vol] 4.0 mmol/L 3.5-5.1 [facility] Sodium [Moles/Vol] 141 mmol/L 136-145 [facility] Laboratory - Chemistry and C hemistry - challengeOrdered By: Elgin Honeycutt on 09-23-2023 CO2 [Moles/Vol] 27.0 mmol/L 21.0-32.0 [facility] Sodium (U) [Moles/Vol] 44 mmol/L Not Establ. [facility] Urea nitrogen/Creatinine [Mass ratio] 8.7 mg/mg 10-20 [facility] No Panel InformationOrdered By: Elgin Honeycutt on 09-23-2023 Estimated GFR (MDRD) Amer 147 mL/min >60 [facility] Comment on above: GFR Calc Estimated GFR (MDRD) Non-Af Amer 122 mL/min >60 [facility] Comment on above: Non- GFR Calc Serum or plasma calcium johnathon urement (mass/volume)Ordered By: Elgin Honeycutt on 09-23-2023 Calcium [Mass/Vol] 9.0 mg/dL 8.5-10.1 [facility] Serum or plasma creatinine m easurement (mass/volume)Ordered By: Elgin Honeycutt on 09-23-2023 Creatinine [Mass/Vol] 0.69 mg/dL 0.70-1.30 [facility] Comment on above: The validity of the calculated GFR & GFRAA in patients over 70 years has not been determined. Clinical correlation is essential. Serum or plasma urea nitroge n measurement (mass/volume)Ordered By: Elgin Honeycutt on 09-23-2023 Urea nitrogen [Mass/Vol] 6 mg/dL 7-18 [facility] Thin prep Papanicolaou smear with manual screeningOrdered By: Elgin Honeycutt on 09-23-2023 Thin prep Papanicolaou smear with manual screening 5 5-15 [facility] Thin prep Papanicolaou smear with manual screening 293 mOsm/KG 280-301 [facility] Urine osmolality measurement Ordered By: Elgin Honeycutt on 09-23-2023 Osmolality (U) [Osmolality] 144 mOsm/KG >50 [facility] Comment on above: Normal Urine Referen ce Ranges Random: 50 - 1200 mOsm/kg H20 depending on fluid intake Random: >850 mOsm/kg after 12 hour fluid restriction 24 hour: ~300 - 900 mOsm/kg H2O Absolute lymphocyte countOrd ered By: Elgin Honeycutt on 09-20-2023 Lymphocytes Auto (Unsp spec) [#/Vol] 1.64 10*3/uL 0.83-4.51 [facility] Automated lymphocyte count a s percentage of total leukocytesOrdered By: Elgin Honeycutt on 09-20-2023 Lymphocytes/100 WBC Auto (Unsp spec) 25.4 % 19-41 [facility] Basophil percentageOrdered B y: Elgin Honeycutt on 09-20-2023 Basophils/100 WBC (Bld) 2.5 % 0-1 [facility] Bilirubin [Mass/Vol] 0.40 mg/dL 0.20-1.00 [facility] Comment on above: For patients on eltr ombopag therapy, use of Dimension [place] TBIL is not recommended. Chloride [Moles/Vol] 96 mmol/L 98-107 [facility] Cholesterol [Mass/Vol] 275 mg/dL <200 [facility] Comment on above: <200 mg/dL Desirable 200-240 mg/dL Borderline >240 mg/dL High Risk Eosinophils/100 WBC (Bld) 1.5 % 0-5 [facility] Glucose [Mass/Vol] 88 mg/dL 74-106 [facility] Hemoglobin (Bld) [Mass/Vol] 11.7 g/dL 13.0-16.5 [facility] Monocytes/100 WBC (Bld) 12.5 % 0-10 [facility] Neutrophils (Bld) [#/Vol] 3.7 10*3/uL 2.0-7.7 [facility] Neutrophils/100 WBC (Bld) 57.2 % 47-70 [facility] Potassium [Moles/Vol] 4.5 mmol/L 3.5-5.1 [facility] Protein [Mass/Vol] 7.4 g/dL 6.4-8.2 [facility] Sodium [Moles/Vol] 129 mmol/L 136-145 [facility] Triglyceride [Mass/Vol] 142 mg/dL <199 [facility] Comment on above: The drugs N-Acetylcy steine and Metamizole may falsely depress this assay.Serum Triglycerides Reference Interval Normal <150 mg/dL Borderline high 150 - 199 mg/dL High 200 - 499 mg/dL Very High > or = 500 mg/dL WBC (Bld) [#/Vol] 6.5 10*3/uL 4.4-11.0 [facility] Determination of erythrocyte mean corpuscular volume (MCV)Ordered By: Elgin Honeycutt on 09-20-2023 MCV (RBC) [Entitic vol] 97.0 fL 80-94 [facility] Erythrocyte distribution wid th ratioOrdered By: Elgin Honeycutt on 09-20-2023 Erythrocyte distribution width (RBC) [Ratio] 13.8 % 11.6-14.6 [facility] Erythrocyte distribution wid th standard deviationOrdered By: Elgin Honeycutt on 09-20-2023 Erythrocyte distribution width (RBC) [Entitic vol] 49.2 fL 35.1-43.9 [facility] Hematocrit Auto (Bld) [Volum e fraction]Ordered By: Elgin Honeycutt on 09-20-2023 Hematocrit (Bld) [Volume fraction] 35.7 % 40-54 [facility] Immature granulocytes/100 WB C Auto (Bld)Ordered By: Elgin Honeycutt on 09-20-2023 Immature granulocytes/100 WBC (Bld) 0.900 % 0.0-0.9 [facility] Comment on above: IG% - Immature Granu locytes (promyelocytes, myelocytes and metamyelocytes) > 1% indicates that a LEFT SHIFT is Present. Laboratory - Chemistry and C hemistry - challengeOrdered By: Elgin Honeycutt on 09-20-2023 Albumin/Globulin [Mass ratio] 0.8 {ratio} 0.9-2.4 [facility] ALP [Catalytic activity/Vol] 130 U/L 45-117 [facility] ALT [Catalytic activity/Vol] 41 U/L 16-61 [facility] Cholesterol in HDL [Mass/Vol] 63 mg/dL >40 [facility] Comment on above: The drugs N-Acetylcy steine and Metamizole may falsely depress this assay. Reference Range HDL <40 mg/dL Low HDL Cholesterol HDL >or= 60 mg/dL High HDL Cholesterol Cholesterol in LDL [Mass/Vol] 184 mg/dL 0-130 [facility] CO2 [Moles/Vol] 25.0 mmol/L 21.0-32.0 [facility] Globulin (S) [Mass/Vol] 4.1 g/dL 2.2-4.2 [facility] Urea nitrogen/Creatinine [Mass ratio] 3.2 mg/mg 10-20 [facility] Laboratory - Hematology and Cell countsOrdered By: Elgin Honeycutt on 09-20-2023 MCH (RBC) [Entitic mass] 31.8 pg 27.0-32.0 [facility] MCHC (RBC) [Mass/Vol] 32.8 g/dL 32-36 [facility] Nucleated RBC/100 WBC (Bld) [Ratio] 0 % 0-5 [facility] Platelet mean volume (Bld) [Entitic vol] 9.8 fL 6.2-12.0 [facility] Platelets (Bld) [#/Vol] 467 10*3/uL 150-450 [facility] No Panel InformationOrdered By: Elgin Honeycutt on 09-20-2023 Estimated GFR (MDRD) Amer 167 mL/min >60 [facility] Comment on above: GFR Calc Estimated GFR (MDRD) Non-Af Amer 138 mL/min >60 [facility] Comment on above: Non- GFR Calc Hepatitis C Antibody Non-Reactive Nonreactive [facility] Comment on above: Non Reactive: < 0.8 Equivocal: >/= 0.8 to < 1.0 Reactive: >/= 1.0The CDC requires that a reactive/equivocal HCV antibody result be sent out for confirmation. HCV Quant by PCR testing. Prostate Specific Antigen Screen 0.65 ng/mL 0.00-4.00 [facility] Comment on above: This test was perfor med using the TPSA assay method for the[employer] chemistry system. Values obtained with differentassay methods cannot be used interchangably.When changing PSA assays in the course of monitoring apatient, additional sequential testing should be carriedout to confirm baseline values. VLDL Cholesterol 28 mg/dL 5-40 [facility] RBC Auto (Bld) [#/Vol]Ordere d By: Elgin Honeycutt on 09-20-2023 RBC (Bld) [#/Vol] 3.68 10*6/uL 4.6-6.2 [facility] Serum or plasma calcium johnathon urement (mass/volume)Ordered By: Elgin Honeycutt on 09-20-2023 Calcium [Mass/Vol] 9.0 mg/dL 8.5-10.1 [facility] Serum or plasma creatinine m easurement (mass/volume)Ordered By: Elgin Honeycutt on 09-20-2023 Creatinine [Mass/Vol] 0.62 mg/dL 0.70-1.30 [facility] Comment on above: The validity of the calculated GFR & GFRAA in patients over 70 years has not been determined. Clinical correlation is essential. Serum or plasma thyroid stim ulating hormone (TSH) measurement (units/volume)Ordered By: Elgin Honeycutt on 09-20-2023 TSH Qn 7.25 uIU/mL 0.358-3.74 [facility] Serum or plasma urea nitroge n measurement (mass/volume)Ordered By: Elgin Honeycutt on 09-20-2023 Urea nitrogen [Mass/Vol] 2 mg/dL 7-18 [facility] Thin prep Papanicolaou smear with manual screeningOrdered By: Elgin Honeycutt on 09-20-2023 Thin prep Papanicolaou smear with manual screening 3.3 g/dL 3.2-5.0 [facility] Thin prep Papanicolaou smear with manual screening 31 U/L 15-37 [facility] Thin prep Papanicolaou smear with manual screening 8 5-15 [facility] Absolute lymphocyte countOrd ered By: Elgin Honeycutt on 09-13-2023 Lymphocytes Auto (Unsp spec) [#/Vol] 1.94 10*3/uL 0.83-4.51 [facility] Automated lymphocyte count a s percentage of total leukocytesOrdered By: Elgin Honeycutt on 09-13-2023 Lymphocytes/100 WBC Auto (Unsp spec) 28.4 % 19-41 [facility] Basophil percentageOrdered B y: Elgin Honeycutt on 09-13-2023 Basophils/100 WBC (Bld) 2.2 % 0-1 [facility] Chloride [Moles/Vol] 108 mmol/L 98-107 [facility] Eosinophils/100 WBC (Bld) 2.1 % 0-5 [facility] Glucose [Mass/Vol] 92 mg/dL 74-106 [facility] Hemoglobin (Bld) [Mass/Vol] 10.7 g/dL 13.0-16.5 [facility] Monocytes/100 WBC (Bld) 11.6 % 0-10 [facility] Neutrophils (Bld) [#/Vol] 3.7 10*3/uL 2.0-7.7 [facility] Neutrophils/100 WBC (Bld) 54.5 % 47-70 [facility] Potassium [Moles/Vol] 4.1 mmol/L 3.5-5.1 [facility] Sodium [Moles/Vol] 139 mmol/L 136-145 [facility] WBC (Bld) [#/Vol] 6.8 10*3/uL 4.4-11.0 [facility] Determination of erythrocyte mean corpuscular volume (MCV)Ordered By: Elgin Honeycutt on 09-13-2023 MCV (RBC) [Entitic vol] 100.3 fL 80-94 [facility] Erythrocyte distribution wid th ratioOrdered By: [facility] 09-[facility]23 Erythrocyte distribution width (RBC) [Ratio] 14.0 % 11.6-14.6 [facility] Erythrocyte distribution wid th standard deviationOrdered By: [facility] on 09-13-2023 Erythrocyte distribution width (RBC) [Entitic vol] 51.8 fL 35.1-43.9 [facility] Hematocrit Auto (Bld) [Volum e fraction]Ordered By: [facility] on 09-13-2023 Hematocrit (Bld) [Volume fraction] 33.1 % 40-54 [facility] Immature granulocytes/100 WB C Auto (Bld)Ordered By: [facility] 09-13-2023 Immature granulocytes/100 WBC (Bld) 1.200 % 0.0-0.9 [facility] Comment on above: IG% - Immature Granu locytes (promyelocytes, myelocytes and metamyelocytes) > 1% indicates that a LEFT SHIFT is Present. Laboratory - Chemistry and C hemistry - challengeOrdered By: [facility] 09-13-2023 CO2 [Moles/Vol] 28.0 mmol/L 21.0-32.0 [facility] Urea nitrogen/Creatinine [Mass ratio] 8.2 mg/mg 10-20 [facility] Laboratory - Hematology and Cell countsOrdered By: [facility] 09-13-2023 MCH (RBC) [Entitic mass] 32.4 pg 27.0-32.0 [facility] MCHC (RBC) [Mass/Vol] 32.3 g/dL 32-36 [facility] Nucleated RBC/100 WBC (Bld) [Ratio] 0 % 0-5 [facility] Platelet mean volume (Bld) [Entitic vol] 9.4 fL 6.2-12.0 [facility] Platelets (Bld) [#/Vol] 489 10*3/uL 150-450 [facility] No Panel InformationOrdered By: [facility] 09-13-2023 Estimated Creatinine Clearance Calc 92.98 ml/min [facility] Estimated GFR (MDRD) Amer 171 mL/min >60 [facility] Comment on above: GFR Calc Estimated GFR (MDRD) Non-Af Amer 142 mL/min >60 [facility] Comment on above: Non- GFR Calc RBC Auto (Bld) [#/Vol]Ordere d By: Elgin Honeycutt on 09-13-2023 RBC (Bld) [#/Vol] 3.30 10*6/uL 4.6-6.2 [facility] Serum or plasma calcium johnathon urement (mass/volume)Ordered By: Elgin Honeycutt on 09-13-2023 Calcium [Mass/Vol] 8.6 mg/dL 8.5-10.1 [facility] Serum or plasma creatinine m easurement (mass/volume)Ordered By: Elgin Honeycutt on 09-13-2023 Creatinine [Mass/Vol] 0.61 mg/dL 0.70-1.30 [facility] Comment on above: The validity of the calculated GFR & GFRAA in patients over 70 years has not been determined. Clinical correlation is essential. Serum or plasma urea nitroge n measurement (mass/volume)Ordered By: Elgin Honeycutt on 09-13-2023 Urea nitrogen [Mass/Vol] 5 mg/dL 7-18 [facility] Thin prep Papanicolaou smear with manual screeningOrdered By: Elgin Honeycutt on 09-13-2023 Thin prep Papanicolaou smear with manual screening 3 5-15 [facility] Absolute lymphocyte countOrd ered By: Anu Wong on 09-04-2023 Lymphocytes Auto (Unsp spec) [#/Vol] 1.18 10*3/uL 0.83-4.51 [facility] Automated lymphocyte count a s percentage of total leukocytesOrdered By: Anu Wong on 09-04-2023 Lymphocytes/100 WBC Auto (Unsp spec) 23.6 % 19-41 [facility] Basophil percentageOrdered B y: Anu Wong on 09-04-2023 Basophils/100 WBC (Bld) 1.2 % 0-1 [facility] Chloride [Moles/Vol] 109 mmol/L 98-107 [facility] Eosinophils/100 WBC (Bld) 2.2 % 0-5 [facility] Glucose [Mass/Vol] 79 mg/dL 74-106 [facility] Hemoglobin (Bld) [Mass/Vol] 11.3 g/dL 13.0-16.5 [facility] Monocytes/100 WBC (Bld) 18.8 % 0-10 [facility] Neutrophils (Bld) [#/Vol] 2.7 10*3/uL 2.0-7.7 [facility] Neutrophils/100 WBC (Bld) 53.2 % 47-70 [facility] Potassium [Moles/Vol] 3.8 mmol/L 3.5-5.1 [facility] Sodium [Moles/Vol] 137 mmol/L 136-145 [facility] WBC (Bld) [#/Vol] 5.0 10*3/uL 4.4-11.0 [facility] Determination of erythrocyte mean corpuscular volume (MCV)Ordered By: Anu Wong on 09-04-2023 MCV (RBC) [Entitic vol] 96.3 fL 80-94 [facility] Erythrocyte distribution wid th ratioOrdered By: Anu Wong on 09-04-2023 Erythrocyte distribution width (RBC) [Ratio] 15.0 % 11.6-14.6 [facility] Erythrocyte distribution wid th standard deviationOrdered By: Anu oWng on 09-04-2023 Erythrocyte distribution width (RBC) [Entitic vol] 52.9 fL 35.1-43.9 [facility] Hematocrit Auto (Bld) [Volum e fraction]Ordered By: Anu Wong on 09-04-2023 Hematocrit (Bld) [Volume fraction] 33.7 % 40-54 [facility] Immature granulocytes/100 WB C Auto (Bld)Ordered By: Anu Wong on 09-04-2023 Immature granulocytes/100 WBC (Bld) 1.000 % 0.0-0.9 [facility] Comment on above: IG% - Immature Granu locytes (promyelocytes, myelocytes and metamyelocytes) > 1% indicates that a LEFT SHIFT is Present. Laboratory - Chemistry and C hemistry - challengeOrdered By: Anu Wong on 09-04-2023 CO2 [Moles/Vol] 26.0 mmol/L 21.0-32.0 [facility] Urea nitrogen/Creatinine [Mass ratio] 14.7 mg/mg 10-20 [facility] Laboratory - Hematology and Cell countsOrdered By: Anu Wong on 09-04-2023 MCH (RBC) [Entitic mass] 32.3 pg 27.0-32.0 [facility] MCHC (RBC) [Mass/Vol] 33.5 g/dL 32-36 [facility] Nucleated RBC/100 WBC (Bld) [Ratio] 0 % 0-5 [facility] Platelet mean volume (Bld) [Entitic vol] 11.1 fL 6.2-12.0 [facility] Platelets (Bld) [#/Vol] 164 10*3/uL 150-450 [facility] No Panel InformationOrdered By: Anu Wong on 09-04-2023 Estimated Creatinine Clearance Calc 86.98 ml/min [facility] Estimated GFR (MDRD) Amer 227 mL/min >60 [facility] Comment on above: GFR Calc Estimated GFR (MDRD) Non-Af Amer 188 mL/min >60 [facility] Comment on above: Non- GFR Calc RBC Auto (Bld) [#/Vol]Ordere d By: Anu Wong on 09-04-2023 RBC (Bld) [#/Vol] 3.50 10*6/uL 4.6-6.2 [facility] Serum or plasma calcium johnathon urement (mass/volume)Ordered By: Anu Wong on 09-04-2023 Calcium [Mass/Vol] 8.6 mg/dL 8.5-10.1 [facility] Serum or plasma creatinine m easurement (mass/volume)Ordered By: Anu Wong on 09-04-2023 Creatinine [Mass/Vol] 0.48 mg/dL 0.70-1.30 [facility] Comment on above: The validity of the calculated GFR & GFRAA in patients over 70 years has not been determined. Clinical correlation is essential. Serum or plasma urea nitroge n measurement (mass/volume)Ordered By: Anu Wong on 09-04-2023 Urea nitrogen [Mass/Vol] 7 mg/dL 7-18 [facility] Thin prep Papanicolaou smear with manual screeningOrdered By: Anu Wong on 09-04-2023 Thin prep Papanicolaou smear with manual screening 2 5-15 [facility] Basophil percentageOrdered B y: Anu Wong on 09-01-2023 Bilirubin [Mass/Vol] 0.80 mg/dL 0.20-1.00 [facility] Comment on above: For patients on eltr ombopag therapy, use of Dimension [place] TBIL is not recommended. Protein [Mass/Vol] 5.5 g/dL 6.4-8.2 [facility] Blood manual differential co mment interpretation (narrative result)Ordered By: Anu Wong on 09-01-2023 Manual differential comment Ja (Bld) [Interp] SCANNED [facility] Direct bilirubinOrdered By: Anu Wong on 09-01-2023 Bilirubin.direct [Mass/Vol] 0.37 mg/dL 0.00-0.30 [facility] Laboratory - Chemistry and C hemistry - challengeOrdered By: Anu Wong on 09-01-2023 ALP [Catalytic activity/Vol] 104 U/L 45-117 [facility] ALT [Catalytic activity/Vol] 57 U/L 16-61 [facility] CK [Catalytic activity/Vol] 645 U/L 39-308 [facility] Globulin (S) [Mass/Vol] 3.0 g/dL 2.2-4.2 [facility] Magnesium [Mass/Vol] 1.8 mg/dL 1.6-2.6 [facility] Thin prep Papanicolaou smear with manual screeningOrdered By: Anu Wong on 09-01-2023 Thin prep Papanicolaou smear with manual screening 2.5 g/dL 3.2-5.0 [facility] Thin prep Papanicolaou smear with manual screening 59 U/L 15-37 [facility] Laboratory - Chemistry and C hemistry - challengeOrdered By: Jarret Romero on 08-30-2023 Albumin/Globulin [Mass ratio] 0.9 {ratio} 0.9-2.4 [facility] Cobalamin (Vitamin B12) [Mass/Vol] 506 pg/mL 211-911 [facility] No Panel InformationOrdered By: Jarret Romero on 08-30-2023 Folate 5.80 ng/mL 3.1-55.4 [facility] [facility] Comment on above: Slight Hemolysis, Re sult may be falsely increased. Basophil percentageOrdered B y: Ida Blanca on 08-29-2023 Basophil percentage 0 SEEN /hpf 0-5 [facility] Bilirubin Test strip Ql (U)O rdered By: Ida Blanca on 08-29-2023 Bilirubin Ql (U) Negative Negative [facility] Blood platelet adequacy dete ction by light microscopyOrdered By: Li Ashley on 08-29-2023 Platelets LM Ql (Bld) MKD DEC ADEQ [facility] Ketones Test strip Ql (U)Ord ered By: Ida Blanca on 08-29-2023 Ketones Ql (U) 15 mg/dl Negative [facility] Laboratory - CoagulationOrde red By: Jarret Romero on 08-29-2023 INR Coag (Bld) [Relative time] 0.9 {INR} [facility] PT Coag (PPP) [Time] 12.5 s 11.7-14.9 [facility] Laboratory - Drug toxicology Ordered By: Jarret Romero on 08-29-2023 Amphetamines Ql (U) Negative <1000 ng/mL [facility] Benzodiazepines Ql (U) Negative < 200 ng/mL [facility] Cannabinoids Screen Ql (U) Negative < 50 ng/mL [facility] Cocaine Ql (U) Negative < 300 ng/mL [facility] Opiates Ql (U) Negative < 300 ng/mL [facility] Mucus LM Ql (Urine sed)Order ed By: Ida Blanca on 08-29-2023 Mucus Ql (Urine sed) 0 SEEN /hpf [facility] Nitrite Test strip Ql (U)Ord ered By: Ida Blanca on 08-29-2023 Nitrite Ql (U) Negative Negative [facility] No Panel InformationOrdered By: Jarret Romero on 08-29-2023 MDMA (Ecstasy) Screen Negative < 500 ng/mL [facility] Urine Barbiturates Screen Negative < 200 ng/mL [facility] Urine Drug Screen Comment [facility] Comment on above: CONFIRMATORY TESTING FOR ALL POSITIVE URINE DRUG SCREENRESULTS WILL ONLY BE SENT OUT UPON PHYSICIAN ORDER. VISTA Urine Drug Screen methods provide only preliminaryanalytical test results. A more specific alternate chemicalmethod must be used in order to obtain a confirmedanalytical result. Gas chromatography/mass spectrometery(GC/MS) is the preferred confirmatory method. Clinicalconsideration and professional judgement should be appliedto any drug of abuse test result, particularly whenpreliminary positive results are used. URINE TCA TESTING MUST BE ORDERED SEPARATELY. USE TESTMNEMONIC: [facility] Urine Methadone Screen Negative < 300 ng/mL [facility] No Panel InformationOrdered By: Ida Blanca on 08-29-2023 Urine RBC 0-5 SEEN /hpf 0-5 [facility] Protein Test strip Ql (U)Ord ered By: Ida Blanca on 08-29-2023 Protein Ql (U) Negative Negative [facility] Review by pathologistOrdered By: Li Ashley on 08-29-2023 Pathologist review Ja (Unsp spec) [Interp] Reviewed [facility] Comment on above: Previous reported re sult: Karli borrego Edited by: RGORICHARD on 08/30/23:1320Marked Thrombocytopenia.Clinical correlation necessary.Deepak Siddiqui M.D. 08/30/23 AMENDED REPORT 08/30/23 1320 PATH REV previously reported as: Karli borrego Squamous epithelial cells de tection in urine sediment by light microscopyOrdered By: Ida Blanca on 08-29-2023 Epithelial cells.squamous LM Ql (Urine sed) 0 SEEN /hpf 0-5 [facility] Urine blood detectionOrdered By: Ida Blanca on 08-29-2023 RBC Ql (U) 10 /ul Negative [facility] Urine clarityOrdered By: Larissa Blanca on 08-29-2023 Clarity (U) Sl. Cloudy Clear [facility] Urine color determinationOrd ered By: Ida Blanca on 08-29-2023 Color (U) Yellow Yellow [facility] Urine glucose detectionOrder ed By: Ida Blanca on 08-29-2023 Glucose Ql (U) Normal mg/dl Normal [facility] Urine leukocyte esterase det ection by dipstickOrdered By: Ida Blanca on 08-29-2023 Leukocyte esterase Test strip Ql (U) Negative Negative [facility] Urine pHOrdered By: Ida Blanca on 08-29-2023 pH (U) 7.0 [pH] 5.0 - 8.0 [facility] Urine phencyclidine (PCP) de tectionOrdered By: Jarret Romero on 08-29-2023 Phencyclidine Ql (U) Negative < 25 ng/mL [facility] Urine sediment bacteria coun t by microscopy (number/high power field)Ordered By: Ida Blanca on 08-29-2023 Bacteria LM.HPF (Urine sed) [#/Area] 0 /[HPF] None Seen [facility] Urine specific gravity measu rementOrdered By: Ida Blanca on 08-29-2023 Specific gravity (U) [Rel density] 1.005 1.002-1.030 [facility] Urine urobilinogen measureme ntOrdered By: Ida Blanca on 08-29-2023 Urobilinogen Ql (U) 1 mg/dl Normal [facility] Final Surgical Pathology Rep [facility] 10-15-2021 Final Surgical Pathology Report . Pathology Reports Accession: Collected Date/Time: Received Date/Time: Pathologist: [id number] 10/13/2021 12:41 EDT 10/14/2021 13:06 EDT DO LIZZETH RIVERA Final Surgical Pathology Report DIAGNOSIS: SKIN EXCISION, LEFT MID CLAVICLE/ MID THORAX - SEBORRHEIC KERATOSIS. COMMENT: AO - [id number] CLINICAL INFORMATION: 20.63 mm posterior trunk, left mid clavicular/mid thoracic Procedure: Shave biopsy Preoperative diagnosis: Large seborrheic keratosis Postoperative diagnosis: To be determined SPECIMEN: A SKIN, POSTERIOR TRUNK, LEFT MID CLAVICLE/MID THORACIC GROSS DESCRIPTION: A. Received in formalin, labeled with the patients name, Case #[id number], and posterior trunk, left mid clavicle/mid thoracic is a freeman-johnson skin shave measuring 1.6 x 1 x 0.1 cm. Skin surface has multiple minute white-johnson nodules with an overall roughened surface appearance. Excision margin inked black. TS -1 Dictated by NAV LÓPEZ MICROSCOPIC DESCRIPTION: Slides reviewed. Electronically Signed by Pathology Report verified by [facility] Electronically signed by LIZZETH RIVERA DO Sign out Date: 10/15/2021 12:53 Performing Lab: [facility], [address] [place] [address] [place] Normal [facility] ([place]) B12on 09-11-2021 Cobalamin (Vitamin B12) [Mass/Vol] 310 pg/mL Normal 211-911 [facility] ([place]) Comment on above: Performed By: #### C BC, ADIFF, ANEU, CMP, LIPID, GFR, TSH, PSA, VIDH #### [address] [address] FOLon 09-11-2021 Folate 7.66 ng/mL Normal 5.38-24.00 [facility] ([place]) Comment on above: Performed By: #### C BC, ADIFF, ANEU, CMP, LIPID, GFR, TSH, PSA, VIDH #### [address] [address] .Auto Diffon 09-10-2021 Basophil, Absolute 0.10 10 3/mcL Normal 0.00-0.19 [facility] ([place]) Comment on above: Performed By: #### C BC, ADIFF, ANEU, CMP, LIPID, GFR, TSH, PSA, VIDH #### [address] [address] Basophils/100 WBC (Bld) 1.1 % Normal 0.0-2.5 [facility] ([place]) Comment on above: Performed By: #### C BC, ADIFF, ANEU, CMP, LIPID, GFR, TSH, PSA, VIDH #### [address] [address] Eosinophil, Absolute 0.20 10 3/mcL Normal 0.00-0.40 [facility] ([place]) Comment on above: Performed By: #### C BC, ADIFF, ANEU, CMP, LIPID, GFR, TSH, PSA, VIDH #### [address] [address] Eosinophils/100 WBC (Bld) 3.4 % Normal 0.0-7.0 [facility] ([place]) Comment on above: Performed By: #### C BC, ADIFF, ANEU, CMP, LIPID, GFR, TSH, PSA, VIDH #### [address] [address] Lymphocyte, Absolute 2.70 10 3/mcL Normal 0.77-3.85 [facility] ([place]) Comment on above: Performed By: #### C BC, ADIFF, ANEU, CMP, LIPID, GFR, TSH, PSA, VIDH #### [address] [address] Lymphocytes/100 WBC (Bld) 41.4 % Normal 10.0-50.0 [facility] ([place]) Comment on above: Performed By: #### C BC, ADIFF, ANEU, CMP, LIPID, GFR, TSH, PSA, VIDH #### [address] [address] Monocyte, Absolute 0.60 10 3/mcL Normal 0.15-1.00 [facility] ([place]) Comment on above: Performed By: #### C BC, ADIFF, ANEU, CMP, LIPID, GFR, TSH, PSA, VIDH #### [address] [address] Monocytes/100 WBC (Bld) 8.8 % Normal 1.7-13.0 [facility] ([place]) Comment on above: Performed By: #### C BC, ADIFF, ANEU, CMP, LIPID, GFR, TSH, PSA, VIDH #### [address] [address] Neutrophils/100 WBC (Bld) 45.3 % Normal 37.0-80.0 [facility] ([place]) Comment on above: Performed By: #### C BC, ADIFF, ANEU, CMP, LIPID, GFR, TSH, PSA, VIDH #### [address] [address] .GFRon 09-10-2021 GFR 118 ml/min/1.73sqm Normal [facility] ([place]) Comment on above: Result Comment: GFR Population mean for , Non- Americans Ages 20-29 = 116 mL/min/1.73 sq.m. Ages 30-39 = 107 mL/min/1.73 sq.m. Ages 40-49 = 99 mL/min/1.73 sq.m. Ages 50-59 = 93 mL/min/1.73 sq.m. Ages 60-69 = 85 mL/min/1.73 sq.m. Ages 70+ = 75 mL/min/1.73 sq.m. Chronic Kidney Disease: Less than 60 mL/min/1.73 square meters End Stage Renal Disease: Less than 15 mL/min/1.73 square meters Performed By: #### C BC, ADIFF, ANEU, CMP, LIPID, GFR, TSH, PSA, VIDH #### [address] [address] GFR Non- 98 ml/min/1.73sqm Normal [facility] ([place]) Comment on above: Result Comment: GFR Population mean for , Non- Americans Ages 20-29 = 116 mL/min/1.73 sq.m. Ages 30-39 = 107 mL/min/1.73 sq.m. Ages 40-49 = 99 mL/min/1.73 sq.m. Ages 50-59 = 93 mL/min/1.73 sq.m. Ages 60-69 = 85 mL/min/1.73 sq.m. Ages 70+ = 75 mL/min/1.73 sq.m. Chronic Kidney Disease: Less than 60 mL/min/1.73 square meters End Stage Renal Disease: Less than 15 mL/min/1.73 square meters Performed By: #### C BC, ADIFF, ANEU, CMP, LIPID, GFR, TSH, PSA, VIDH #### [address] [address] .NEUABSon 09-10-2021 Neutrophil, Absolute 2.90 10 3/mcL Normal 2.85-6.16 [facility] ([place]) Comment on above: Performed By: #### C BC, ADIFF, ANEU, CMP, LIPID, GFR, TSH, PSA, VIDH #### [address] [address] CBCon 09-10-2021 Erythrocyte distribution width (RBC) [Ratio] 13.9 % Normal 11.5-14.5 [facility] ([place]) Comment on above: Performed By: #### C BC, ADIFF, ANEU, CMP, LIPID, GFR, TSH, PSA, VIDH #### [place] [address] Hematocrit (Bld) [Volume fraction] 46.1 % Normal 42.0-52.0 [facility] ([place]) Comment on above: Performed By: #### C BC, ADIFF, ANEU, CMP, LIPID, GFR, TSH, PSA, VIDH #### [place] [address] Hgb 15.8 G/dL Normal 14.0-18.0 [facility] ([place]) Comment on above: Performed By: #### C BC, ADIFF, ANEU, CMP, LIPID, GFR, TSH, PSA, VIDH #### [place] [address] MCH (RBC) [Entitic mass] 31.6 pg High 27.0-31.2 [facility] ([place]) Comment on above: Performed By: #### C BC, ADIFF, ANEU, CMP, LIPID, GFR, TSH, PSA, VIDH #### [place] [address] MCHC 34.2 G/dL Normal 31.8-35.4 [facility] ([place]) Comment on above: Performed By: #### C BC, ADIFF, ANEU, CMP, LIPID, GFR, TSH, PSA, VIDH #### [place] [address] MCV (RBC) [Entitic vol] 92.7 fL Normal 80.0-94.0 [facility] ([place]) Comment on above: Performed By: #### C BC, ADIFF, ANEU, CMP, LIPID, GFR, TSH, PSA, VIDH #### [place] [address] Platelet 274 10 3/mcL Normal 130-400 [facility] ([place]) Comment on above: Performed By: #### C BC, ADIFF, ANEU, CMP, LIPID, GFR, TSH, PSA, VIDH #### [address] [address] Platelet mean volume (Bld) [Entitic vol] 9.5 fL Normal 7.4-10.4 [facility] ([place]) Comment on above: Performed By: #### C BC, ADIFF, ANEU, CMP, LIPID, GFR, TSH, PSA, VIDH #### [address] [address] RBC 4.98 10 6/mcL Normal 4.04-6.13 [facility] ([place]) Comment on above: Performed By: #### C BC, ADIFF, ANEU, CMP, LIPID, GFR, TSH, PSA, VIDH #### [address] [address] WBC 6.50 10 3/mcL Normal 4.60-10.80 [facility] ([place]) Comment on above: Performed By: #### C BC, ADIFF, ANEU, CMP, LIPID, GFR, TSH, PSA, VIDH #### [address] [address] CMPon 09-10-2021 Albumin Level 3.8 G/dL Normal 3.4-4.8 [facility] ([place]) Comment on above: Performed By: #### C BC, ADIFF, ANEU, CMP, LIPID, GFR, TSH, PSA, VIDH #### [address] [address] Albumin/Globulin [Mass ratio] 1.1 {ratio} Normal 1.1-2.5 [facility] ([place]) Comment on above: Performed By: #### C BC, ADIFF, ANEU, CMP, LIPID, GFR, TSH, PSA, VIDH #### [address] [address] ALP [Catalytic activity/Vol] 75 U/L Normal 40-135 [facility] ([place]) Comment on above: Performed By: #### C BC, ADIFF, ANEU, CMP, LIPID, GFR, TSH, PSA, VIDH #### [address] [address] ALT [Catalytic activity/Vol] 22 U/L Normal 16-63 [facility] ([place]) Comment on above: Performed By: #### C BC, ADIFF, ANEU, CMP, LIPID, GFR, TSH, PSA, VIDH #### [address] [address] AST [Catalytic activity/Vol] 20 U/L Normal 10-40 [facility] ([place]) Comment on above: Performed By: #### C BC, ADIFF, ANEU, CMP, LIPID, GFR, TSH, PSA, VIDH #### [address] [address] Bili Total 0.4 mg/dL Normal 0.2-1.0 [facility] ([place]) Comment on above: Result Comment: Use of this assay is not recommended for patients undergoing treatment with eltrombopag due to the potential for falsely elevated results. Performed By: #### C BC, ADIFF, ANEU, CMP, LIPID, GFR, TSH, PSA, VIDH #### [address] [address] BUN/Creatinine Ratio 14 ratio Normal 7-27 [facility] ([place]) Comment on above: Performed By: #### C BC, ADIFF, ANEU, CMP, LIPID, GFR, TSH, PSA, VIDH #### [address] [address] Calcium [Mass/Vol] 9.1 mg/dL Normal 8.4-10.2 [facility] ([place]) Comment on above: Performed By: #### C BC, ADIFF, ANEU, CMP, LIPID, GFR, TSH, PSA, VIDH #### [address] [address] Chloride [Moles/Vol] 103 mmol/L Normal 98-107 [facility] ([place]) Comment on above: Performed By: #### C BC, ADIFF, ANEU, CMP, LIPID, GFR, TSH, PSA, VIDH #### [address] [address] CO2 [Moles/Vol] 22 mmol/L Low 23-31 [facility] ([place]) Comment on above: Performed By: #### C BC, ADIFF, ANEU, CMP, LIPID, GFR, TSH, PSA, VIDH #### [address] [address] Creatinine [Mass/Vol] 0.80 mg/dL Normal 0.70-1.30 [facility] ([place]) Comment on above: Performed By: #### C BC, ADIFF, ANEU, CMP, LIPID, GFR, TSH, PSA, VIDH #### [address] [address] Electrolyte Balance 14.0 mEq/L Normal 4.0-15.0 [facility] ([place]) Comment on above: Performed By: #### C BC, ADIFF, ANEU, CMP, LIPID, GFR, TSH, PSA, VIDH #### [address] [address] Globulin 3.5 G/dL Normal [facility] ([place]) Comment on above: Performed By: #### C BC, ADIFF, ANEU, CMP, LIPID, GFR, TSH, PSA, VIDH #### [address] [address] Glucose [Mass/Vol] 90 mg/dL Normal 80-115 [facility] ([place]) Comment on above: Performed By: #### C BC, ADIFF, ANEU, CMP, LIPID, GFR, TSH, PSA, VIDH #### [address] [address] Potassium [Moles/Vol] 5.2 mmol/L High 3.5-5.1 [facility] ([place]) Comment on above: Performed By: #### C BC, ADIFF, ANEU, CMP, LIPID, GFR, TSH, PSA, VIDH #### [address] [address] Sodium [Moles/Vol] 139 mmol/L Normal 136-145 [facility] ([place]) Comment on above: Performed By: #### C BC, ADIFF, ANEU, CMP, LIPID, GFR, TSH, PSA, VIDH #### [address] [place] [address] Total Protein 7.3 G/dL Normal 6.4-8.2 [facility] ([place]) Comment on above: Performed By: #### C BC, ADIFF, ANEU, CMP, LIPID, GFR, TSH, PSA, VIDH #### [address] [address] Urea nitrogen [Mass/Vol] 11 mg/dL Normal 7-18 [facility] ([place]) Comment on above: Performed By: #### C BC, ADIFF, ANEU, CMP, LIPID, GFR, TSH, PSA, VIDH #### [address] [address] LABORATORYOrdered By: Mayda Spencer on 09-10-2021 Albumin BCP dye [Mass/Vol] 3.8 G/dL Invalid Interpretation Code 3.4 - 4.8 G/dL AO ADM SS Albumin/Globulin [Mass ratio] 1.1 {ratio} Invalid Interpretation Code 1.1 - 2.5 ratio AO ADM SS ALP [Catalytic activity/Vol] 75 U/L Invalid Interpretation Code 40 - 135 U/L AO ADM SS ALT With P-5'-P [Catalytic activity/Vol] 22 U/L Invalid Interpretation Code 16 - 63 U/L AO ADM SS AST With P-5'-P [Catalytic activity/Vol] 20 U/L Invalid Interpretation Code 10 - 40 U/L AO ADM SS Basophil, Absolute 0.10 103/mcL Invalid Interpretation Code 0.00 - 0.19 10^3/mcL AO Auto Heme SS Basophils/100 WBC (Bld) 1.1 % Invalid Interpretation Code 0.0 - 2.5 % AO Auto Heme SS Bilirubin [Mass/Vol] 0.4 mg/dL Invalid Interpretation Code 0.2 - 1.0 mg/dL AO ADM SS Calcium [Mass/Vol] 9.1 mg/dL Invalid Interpretation Code 8.4 - 10.2 mg/dL AO ADM SS Chloride [Moles/Vol] 103 mmol/L Invalid Interpretation Code 98 - 107 mmol/L AO ADM SS Cholesterol [Mass/Vol] 236 mg/dL Invalid Interpretation Code 0 - 200 mg/dL AO ADM SS Cholesterol in HDL [Mass/Vol] 63 mg/dL Invalid Interpretation Code 40 - 60 mg/dL AO ADM SS Cholesterol in LDL [Mass/Vol] 161 mg/dL Invalid Interpretation Code 0 - 130 mg/dL AO ADM SS CO2 [Moles/Vol] 22 mmol/L Invalid Interpretation Code 23 - 31 mmol/L AO ADM SS Creatinine [Mass/Vol] 0.80 mg/dL Invalid Interpretation Code 0.70 - 1.30 mg/dL AO ADM SS Electrolyte Balance 14.0 mEq/L Invalid Interpretation Code 4.0 - 15.0 mEq/L AO ADM SS Eosinophil, Absolute 0.20 103/mcL Invalid Interpretation Code 0.00 - 0.40 10^3/mcL AO Auto Heme SS Eosinophils/100 WBC (Bld) 3.4 % Invalid Interpretation Code 0.0 - 7.0 % AO Auto Heme SS Erythrocyte distribution width (RBC) [Ratio] 13.9 % Invalid Interpretation Code 11.5 - 14.5 % AO Auto Heme SS Globulin 3.5 G/dL Invalid Interpretation Code AO ADM SS Glucose [Mass/Vol] 90 mg/dL Invalid Interpretation Code 80 - 115 mg/dL AO ADM SS Hematocrit (Bld) [Volume fraction] 46.1 % Invalid Interpretation Code 42.0 - 52.0 % AO Auto Heme SS Hemoglobin (Bld) [Mass/Vol] 15.8 G/dL Invalid Interpretation Code 14.0 - 18.0 G/dL AO Auto Heme SS Lymphocyte, Absolute 2.70 103/mcL Invalid Interpretation Code 0.77 - 3.85 10^3/mcL AO Auto Heme SS Lymphocytes/100 WBC (Bld) 41.4 % Invalid Interpretation Code 10.0 - 50.0 % AO Auto Heme SS MCH (RBC) [Entitic mass] 31.6 pg Invalid Interpretation Code 27.0 - 31.2 pg AO Auto Heme SS MCHC (RBC) [Mass/Vol] 34.2 G/dL Invalid Interpretation Code 31.8 - 35.4 G/dL AO Auto Heme SS MCV (RBC) [Entitic vol] 92.7 fL Invalid Interpretation Code 80.0 - 94.0 fL AO Auto Heme SS Monocyte, Absolute 0.60 103/mcL Invalid Interpretation Code 0.15 - 1.00 10^3/mcL AO Auto Heme SS Monocytes/100 WBC (Bld) 8.8 % Invalid Interpretation Code 1.7 - 13.0 % AO Auto Heme SS Neutrophil, Absolute 2.90 103/mcL Invalid Interpretation Code 2.85 - 6.16 10^3/mcL AO Auto Heme SS Neutrophils/100 WBC (Bld) 45.3 % Invalid Interpretation Code 37.0 - 80.0 % AO Auto Heme SS Platelet mean volume (Bld) [Entitic vol] 9.5 fL Invalid Interpretation Code 7.4 - 10.4 fL AO Auto Heme SS Platelets (Bld) [#/Vol] 274 103/mcL Invalid Interpretation Code 130 - 400 10^3/mcL AO Auto Heme SS Potassium [Moles/Vol] 5.2 mmol/L Invalid Interpretation Code 3.5 - 5.1 mmol/L AO ADM SS Protein [Mass/Vol] 7.3 G/dL Invalid Interpretation Code 6.4 - 8.2 G/dL AO ADM SS RBC (Bld) [#/Vol] 4.98 106/mcL Invalid Interpretation Code 4.04 - 6.13 10^6/mcL AO Auto Heme SS Sodium [Moles/Vol] 139 mmol/L Invalid Interpretation Code 136 - 145 mmol/L AO ADM SS Triglyceride [Mass/Vol] 58 mg/dL Invalid Interpretation Code 0 - 150 mg/dL AO ADM SS Urea nitrogen [Mass/Vol] 11 mg/dL Invalid Interpretation Code 7 - 18 mg/dL AO ADM SS Urea nitrogen/Creatinine [Mass ratio] 14 ratio Invalid Interpretation Code 7 - 27 ratio AO ADM SS Vit. D 25-Hydroxy 21.8 ng/mL Invalid Interpretation Code AO ADM SS WBC (Bld) [#/Vol] 6.50 103/mcL Invalid Interpretation Code 4.60 - 10.80 10^3/mcL AO Auto Heme SS LABORATORYOrdered By: SYSTEM SYSTEM on 09-10-2021 Cobalamin (Vitamin B12) [Mass/Vol] 310 pg/mL Invalid Interpretation Code 211 - 911 pg/mL AH ADM SS Folate [Mass/Vol] 7.66 ng/mL Invalid Interpretation Code 5.38 - 24.00 ng/mL AH ADM SS GFR 118 ml/min/1.73sqm Invalid Interpretation Code AO Chemistry S GFR Non- 98 ml/min/1.73sqm Invalid Interpretation Code AO Chemistry S LIPIDon 09-10-2021 Cholesterol [Mass/Vol] 236 mg/dL High 0-200 Au [facility] ([place]) Comment on above: Result Comment: Chol esterol Reference Interval: Less than 200 Desirable 200-239 Borderline high risk 240 and above High risk Performed By: #### C [place] ANEU, CMP, LIPID, GFR, TSH, PSA, VIDH #### [address] [address] Cholesterol in HDL [Mass/Vol] 63 mg/dL High 40-60 [facility] ([place]) Comment on above: Performed By: #### C BC, ADIFF, ANEU, CMP, LIPID, GFR, TSH, PSA, VIDH #### [place] [address] [place], [place] [address] Cholesterol in LDL [Mass/Vol] 161 mg/dL High 0-130 [facility] ([place]) Comment on above: Performed By: #### C BC, ADIFF, ANEU, CMP, LIPID, GFR, TSH, PSA, VIDH #### [address] [address] Triglyceride [Mass/Vol] 58 mg/dL Normal 0-150 [facility] ([place]) Comment on above: Result Comment: Trig lyceride Reference Interval: Less than 150 Normal 150-199 Borderline high risk 200-499 High risk 500 or higher Very high risk Performed By: #### C BC, ADIFF, ANEU, CMP, LIPID, GFR, TSH, PSA, VIDH #### [address] [address] VIDHon 09-10-2021 Vit. D 25-Hydroxy 21.8 ng/mL Normal [facility] ([place]) Comment on above: Result Comment: Inte rpretive Values Based on Total 25([place]) Vitamin D: Deficient <20 ng/mL Insufficient 20 - <30 ng/mL Sufficient 30-100 ng/mL Performed By: #### C BC, ADIFF, ANEU, CMP, LIPID, GFR, TSH, PSA, VIDH #### [address] [address] [place] MAMMOGRAM DIAGNOSTIC BILA TERAL W/TOMOon 07-01-2021 [place] MAMMOGRAM DIAGNOSTIC BILATERAL W/KYREE ORIGINAL FROM: [facility] [address] [place] [address] PROCEDURE FOR: JULI DAVIDSON [address] [place] [id number] Home: PID#: [id number] Exam#: [id number] : 1960 Age: 60 TO: JUAN 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 [address] [place], [place] [address] Fax: NO FAX EXAMINATION: DIAGNOSTIC BILATERAL MAMMOGRAM WITH TOMOSYNTHESIS, 07/01/2021 2:28 pm TECHNIQUE: Tomosynthesis was performed as part of the diagnostic bilateral mammogram. 2D standard and 3D tomosynthesis combination imaging performed. Current study was also evaluated with a Computer Aided Detection (CAD) system. COMPARISON: None. The patient reports having prior imaging at an outside facility which was not available at the time of interpretation. Outside imaging has been requested, and an addendum can be made/requested if they become available. HISTORY: ORDERING SYSTEM PROVIDED HISTORY: Reason for Exam: bilateral breast masses, nipple discharge Patient reports history of bilateral breast surgery August of 2020 at an outside facility. He describes having history of bilateral nipple discharge and is unable to give details concerning what his surgery was for, but he denies history of breast cancer. Per clinician history the surgery may have been secondary to mastitis or another benign cause. The patient presents for bilateral breast pain. FINDINGS: BREAST DENSITY: n/a There are findings consistent with bilateral gynecomastia, greater on the left. Postsurgical changes are noted in both breasts. Benign-appearing intramammary lymph nodes are noted in the right breast at 9 o'clock, 3 cm from the nipple. There is no mammographic correlate for the patient's bilateral breast pain. No suspicious masses, calcifications, or other findings are identified in either breast. IMPRESSION: No mammographic correlate for the patient's bilateral breast pain. An ultrasound will be performed today and will be reported separately. No suspicious mammographic finding. Bilateral gynecomastia. BIRADS: MAMMOGRAM BI-RADS: 0: Needs addl evaluation RECALL: immediate RECALL TYPE: US LETTER SENT: Normal-Needs additional work up BI-RADS 0 Interpreted by: Leonela Wellington Preliminary Report By: Leonela Wellington Electronically signed By Leonela Wellington Dictated Date: 07/01/2021 3:13:21 PM Prelim Date: 07/01/2021 5:16:31 PM Sign Date: 07/01/2021 5:16:31 PM Ordering Provider: JUAN DELATORRE CLINICAL: BILATERAL BREAST TENDERNESS BILATERAL NIPPLE DISCHARGE. 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 [address] [place] [phone] Fax: NO FAX EXAMINATION: ULTRASOUND OF THE BILATERAL BREASTS 07/01/2021 TECHNIQUE: Color flow and real-time targeted ultrasound of the bilateral retroareolar regions and superior regions as well as the right breast 9 o'clock region were performed. COMPARISON: Same day mammogram. Of note, patient is had prior breast imaging in outside facility that was not available at the time of dictation. If prior imaging becomes available, an addendum can be made/requested. HISTORY: ORDERING SYSTEM PROVIDED HISTORY: Reason for Exam: bilateral breast pain The patient was difficult to scan per the technologist as the patient was very tender and could not lift arms above the head. Patient has history of bilateral breast surgery. Per history the patient may have had surgery for mastitis or other benign causes. Patient denies history of breast cancer. The patient presents for bilateral breast pain. FINDINGS: RIGHT BREAST: Findings consistent with gynecomastia are noted in the retroareolar region. Benign-appearing lymph nodes are noted at 9 o'clock, 8 cm from nipple and correlate with the mammographic finding. There is no sonographic finding to correlate with the right breast pain. No suspicious sonographic finding is identified in the scanned regions of the right breast. LEFT BREAST: Findings consistent with gynecomastia are noted in the retroareolar region. There is no sonographic finding to correlate with the left breast pain. No suspicious sonographic finding is identified in the scanned regions of the left breast. IMPRESSION: There are no significant sonographic findings to correlate with the patient's bilateral breast pain. Clinical follow up is recommended. Benign-appearing right intramammary lymph nodes require no further imaging follow-up. Bilateral gynecomastia. BIRADS: MAMMOGRAM BI-RADS: 2: Benign finding RECALL: none RECALL TYPE: unspecified LETTER SENT: Normal BI-RADS 1 and 2 Interpreted by: Leonela Wellington Preliminary Report By: Leonela Wellington Electronically signed By Leonela Wellington Dictated Date: 07/01/2021 4:13:20 PM Prelim Date: 07/01/2021 5:17:11 PM Sign Date: 07/01/2021 5:17:11 PM Ordering Provider: JUAN DELATORRE CLINICAL: BILATERAL BREAST PAIN RETROAREOLAR. Polygraph Technician: LUCIA BURTON RT,[facility] letter sent: Normal BI-RADS 1 and 2 Ultrasound BI-RADS: 2 Benign Normal [facility] ([place]) .Auto Diffon 06-11-2021 Basophil, Absolute 0.10 10 3/mcL Normal 0.00-0.19 [facility] ([place]) Comment on above: Performed By: #### C BC, ADIFF, ANEU, CMP, LIPID, GFR, TSH, PSA, VIDH #### [address] [address] Basophils/100 WBC (Bld) 1.2 % Normal 0.0-2.5 [facility] ([place]) Comment on above: Performed By: #### C BC, ADIFF, ANEU, CMP, LIPID, GFR, TSH, PSA, VIDH #### [address] [address] Eosinophil, Absolute 0.30 10 3/mcL Normal 0.00-0.40 [facility] ([place]) Comment on above: Performed By: #### C BC, ADIFF, ANEU, CMP, LIPID, GFR, TSH, PSA, VIDH #### [address] [address] Eosinophils/100 WBC (Bld) 3.2 % Normal 0.0-7.0 [facility] ([place]) Comment on above: Performed By: #### C BC, ADIFF, ANEU, CMP, LIPID, GFR, TSH, PSA, VIDH #### [address] [address] Lymphocyte, Absolute 2.50 10 3/mcL Normal 0.77-3.85 [facility] ([place]) Comment on above: Performed By: #### C BC, ADIFF, ANEU, CMP, LIPID, GFR, TSH, PSA, VIDH #### [address] [address] Lymphocytes/100 WBC (Bld) 30.4 % Normal 10.0-50.0 [facility] ([place]) Comment on above: Performed By: #### C BC, ADIFF, ANEU, CMP, LIPID, GFR, TSH, PSA, VIDH #### [address] [address] Monocyte, Absolute 0.70 10 3/mcL Normal 0.15-1.00 [facility] ([place]) Comment on above: Performed By: #### C BC, ADIFF, ANEU, CMP, LIPID, GFR, TSH, PSA, VIDH #### [address] [address] Monocytes/100 WBC (Bld) 8.2 % Normal 1.7-13.0 [facility] ([place]) Comment on above: Performed By: #### C BC, ADIFF, ANEU, CMP, LIPID, GFR, TSH, PSA, VIDH #### [address] [address] Neutrophils/100 WBC (Bld) 57.0 % Normal 37.0-80.0 [facility] ([place]) Comment on above: Performed By: #### C BC, ADIFF, ANEU, CMP, LIPID, GFR, TSH, PSA, VIDH #### [address] [address] .GFRon 06-11-2021 GFR 130 ml/min/1.73sqm Normal [facility] ([place]) Comment on above: Result Comment: GFR Population mean for , Non- Americans Ages 20-29 = 116 mL/min/1.73 sq.m. Ages 30-39 = 107 mL/min/1.73 sq.m. Ages 40-49 = 99 mL/min/1.73 sq.m. Ages 50-59 = 93 mL/min/1.73 sq.m. Ages 60-69 = 85 mL/min/1.73 sq.m. Ages 70+ = 75 mL/min/1.73 sq.m. Chronic Kidney Disease: Less than 60 mL/min/1.73 square meters End Stage Renal Disease: Less than 15 mL/min/1.73 square meters Performed By: #### C BC, ADIFF, ANEU, CMP, LIPID, GFR, TSH, PSA, VIDH #### [address] [address] GFR Non- 107 ml/min/1.73sqm Normal [facility] ([place]) Comment on above: Result Comment: GFR Population mean for , Non- Americans Ages 20-29 = 116 mL/min/1.73 sq.m. Ages 30-39 = 107 mL/min/1.73 sq.m. Ages 40-49 = 99 mL/min/1.73 sq.m. Ages 50-59 = 93 mL/min/1.73 sq.m. Ages 60-69 = 85 mL/min/1.73 sq.m. Ages 70+ = 75 mL/min/1.73 sq.m. Chronic Kidney Disease: Less than 60 mL/min/1.73 square meters End Stage Renal Disease: Less than 15 mL/min/1.73 square meters Performed By: #### C BC, ADIFF, ANEU, CMP, LIPID, GFR, TSH, PSA, VIDH #### [address] [address] .NEUABSon 06-11-2021 Neutrophil, Absolute 4.70 10 3/mcL Normal 2.85-6.16 [facility] ([place]) Comment on above: Performed By: #### C BC, ADIFF, ANEU, CMP, LIPID, GFR, TSH, PSA, VIDH #### [address] [address] CBCon 06-11-2021 Erythrocyte distribution width (RBC) [Ratio] 13.7 % Normal 11.5-14.5 [facility] ([place]) Comment on above: Performed By: #### C BC, ADIFF, ANEU, CMP, LIPID, GFR, TSH, PSA, VIDH #### [place] [address] Hematocrit (Bld) [Volume fraction] 47.3 % Normal 42.0-52.0 [facility] ([place]) Comment on above: Performed By: #### C BC, ADIFF, ANEU, CMP, LIPID, GFR, TSH, PSA, VIDH #### [address] [address] Hgb 15.9 G/dL Normal 14.0-18.0 [facility] ([place]) Comment on above: Performed By: #### C BC, ADIFF, ANEU, CMP, LIPID, GFR, TSH, PSA, VIDH #### [address] [address] MCH (RBC) [Entitic mass] 31.9 pg High 27.0-31.2 [facility] ([place]) Comment on above: Performed By: #### C BC, ADIFF, ANEU, CMP, LIPID, GFR, TSH, PSA, VIDH #### [address] [address] MCHC 33.6 G/dL Normal 31.8-35.4 [facility] ([place]) Comment on above: Performed By: #### C BC, ADIFF, ANEU, CMP, LIPID, GFR, TSH, PSA, VIDH #### [place] [id number] MCV (RBC) [Entitic vol] 94.8 fL High 80.0-94.0 [facility] ([place]) Comment on above: Performed By: #### C BC, ADIFF, ANEU, CMP, LIPID, GFR, TSH, PSA, VIDH #### [address] [address] Platelet 314 10 3/mcL Normal 130-400 [facility] ([place]) Comment on above: Performed By: #### C BC, ADIFF, ANEU, CMP, LIPID, GFR, TSH, PSA, VIDH #### [address] [address] Platelet mean volume (Bld) [Entitic vol] 9.5 fL Normal 7.4-10.4 [facility] ([place]) Comment on above: Performed By: #### C BC, ADIFF, ANEU, CMP, LIPID, GFR, TSH, PSA, VIDH #### [address] [address] RBC 4.99 10 6/mcL Normal 4.04-6.13 [facility] ([place]) Comment on above: Performed By: #### C BC, ADIFF, ANEU, CMP, LIPID, GFR, TSH, PSA, VIDH #### [address] [address] WBC 8.30 10 3/mcL Normal 4.60-10.80 [facility] ([place]) Comment on above: Performed By: #### C BC, ADIFF, ANEU, CMP, LIPID, GFR, TSH, PSA, VIDH #### [address] [address] CMPon 06-11-2021 Albumin Level 3.6 G/dL Normal 3.4-4.8 [facility] ([place]) Comment on above: Performed By: #### C BC, ADIFF, ANEU, CMP, LIPID, GFR, TSH, PSA, VIDH #### [address] [address] Albumin/Globulin [Mass ratio] 1.0 {ratio} Low 1.1-2.5 [facility] ([place]) Comment on above: Performed By: #### C BC, ADIFF, ANEU, CMP, LIPID, GFR, TSH, PSA, VIDH #### [address] [address] ALP [Catalytic activity/Vol] 88 U/L Normal 40-135 [facility] ([place]) Comment on above: Performed By: #### C BC, ADIFF, ANEU, CMP, LIPID, GFR, TSH, PSA, VIDH #### [address] [address] ALT [Catalytic activity/Vol] 23 U/L Normal 16-63 [facility] ([place]) Comment on above: Performed By: #### C BC, ADIFF, ANEU, CMP, LIPID, GFR, TSH, PSA, VIDH #### [address] [address] AST [Catalytic activity/Vol] 15 U/L Normal 10-40 [facility] ([place]) Comment on above: Performed By: #### C BC, ADIFF, ANEU, CMP, LIPID, GFR, TSH, PSA, VIDH #### [address] [address] Bili Total 0.4 mg/dL Normal 0.2-1.0 [facility] ([place]) Comment on above: Result Comment: Use of this assay is not recommended for patients undergoing treatment with eltrombopag due to the potential for falsely elevated results. Performed By: #### C BC, ADIFF, ANEU, CMP, LIPID, GFR, TSH, PSA, VIDH #### [address] [address] BUN/Creatinine Ratio 12 ratio Normal 7-27 [facility] ([place]) Comment on above: Performed By: #### C BC, ADIFF, ANEU, CMP, LIPID, GFR, TSH, PSA, VIDH #### [address] [address] Calcium [Mass/Vol] 9.5 mg/dL Normal 8.4-10.2 [facility] ([place]) Comment on above: Performed By: #### C BC, ADIFF, ANEU, CMP, LIPID, GFR, TSH, PSA, VIDH #### [address] [address] Chloride [Moles/Vol] 103 mmol/L Normal 98-107 [facility] ([place]) Comment on above: Performed By: #### C BC, ADIFF, ANEU, CMP, LIPID, GFR, TSH, PSA, VIDH #### [address] [address] CO2 [Moles/Vol] 27 mmol/L Normal 23-31 [facility] ([place]) Comment on above: Performed By: #### C BC, ADIFF, ANEU, CMP, LIPID, GFR, TSH, PSA, VIDH #### [address] [address] Creatinine [Mass/Vol] 0.74 mg/dL Normal 0.70-1.30 [facility] ([place]) Comment on above: Performed By: #### C BC, ADIFF, ANEU, CMP, LIPID, GFR, TSH, PSA, VIDH #### [address] [address] Electrolyte Balance 10.0 mEq/L Normal [facility] ([place]) Comment on above: Performed By: #### C BC, ADIFF, ANEU, CMP, LIPID, GFR, TSH, PSA, VIDH #### [address] [address] Globulin 3.7 G/dL Normal [facility] ([place]) Comment on above: Performed By: #### C BC, ADIFF, ANEU, CMP, LIPID, GFR, TSH, PSA, VIDH #### [address] [address] Glucose [Mass/Vol] 98 mg/dL Normal 80-115 [facility] ([place]) Comment on above: Performed By: #### C BC, ADIFF, ANEU, CMP, LIPID, GFR, TSH, PSA, VIDH #### [address] [address] Potassium [Moles/Vol] 5.2 mmol/L High 3.5-5.1 [facility] ([place]) Comment on above: Performed By: #### C BC, ADIFF, ANEU, CMP, LIPID, GFR, TSH, PSA, VIDH #### [address] [address] Sodium [Moles/Vol] 140 mmol/L Normal 136-145 [facility] ([place]) Comment on above: Performed By: #### C BC, ADIFF, ANEU, CMP, LIPID, GFR, TSH, PSA, VIDH #### [address] [address] Total Protein 7.3 G/dL Normal 6.4-8.2 [facility] ([place]) Comment on above: Performed By: #### C BC, ADIFF, ANEU, CMP, LIPID, GFR, TSH, PSA, VIDH #### [place] [address] [place], [place] [address] Urea nitrogen [Mass/Vol] 9 mg/dL Normal 7-18 [facility] ([place]) Comment on above: Performed By: #### C BC, ADIFF, ANEU, CMP, LIPID, GFR, TSH, PSA, VIDH #### [place] [address] [place], [place] [address] LABORATORYOrdered By: Castro Antony on 06-11-2021 Albumin BCP dye [Mass/Vol] 3.6 G/dL Invalid Interpretation Code 3.4 - 4.8 G/dL AO ADM SS Albumin/Globulin [Mass ratio] 1.0 {ratio} Invalid Interpretation Code 1.1 - 2.5 ratio AO ADM SS ALP [Catalytic activity/Vol] 88 U/L Invalid Interpretation Code 40 - 135 U/L AO ADM SS ALT With P-5'-P [Catalytic activity/Vol] 23 U/L Invalid Interpretation Code 16 - 63 U/L AO ADM SS AST With P-5'-P [Catalytic activity/Vol] 15 U/L Invalid Interpretation Code 10 - 40 U/L AO ADM SS Bilirubin [Mass/Vol] 0.4 mg/dL Invalid Interpretation Code 0.2 - 1.0 mg/dL AO ADM SS Calcium [Mass/Vol] 9.5 mg/dL Invalid Interpretation Code 8.4 - 10.2 mg/dL AO ADM SS Chloride [Moles/Vol] 103 mmol/L Invalid Interpretation Code 98 - 107 mmol/L AO ADM SS Cholesterol [Mass/Vol] 275 mg/dL Invalid Interpretation Code 0 - 200 mg/dL AO ADM SS Cholesterol in HDL [Mass/Vol] 48 mg/dL Invalid Interpretation Code 40 - 60 mg/dL AO ADM SS Cholesterol in LDL [Mass/Vol] 202 mg/dL Invalid Interpretation Code 0 - 130 mg/dL AO ADM SS CO2 [Moles/Vol] 27 mmol/L Invalid Interpretation Code 23 - 31 mmol/L AO ADM SS Creatinine [Mass/Vol] 0.74 mg/dL Invalid Interpretation Code 0.70 - 1.30 mg/dL AO ADM SS Electrolyte Balance 10.0 mEq/L Invalid Interpretation Code AO ADM SS Globulin 3.7 G/dL Invalid Interpretation Code AO ADM SS Glucose [Mass/Vol] 98 mg/dL Invalid Interpretation Code 80 - 115 mg/dL AO ADM SS Potassium [Moles/Vol] 5.2 mmol/L Invalid Interpretation Code 3.5 - 5.1 mmol/L AO ADM SS Prostate specific Ag [Mass/Vol] 0.72 ng/mL Invalid Interpretation Code 0.00 - 4.00 ng/mL AO ADM SS Protein [Mass/Vol] 7.3 G/dL Invalid Interpretation Code 6.4 - 8.2 G/dL AO ADM SS Sodium [Moles/Vol] 140 mmol/L Invalid Interpretation Code 136 - 145 mmol/L AO ADM SS Triglyceride [Mass/Vol] 123 mg/dL Invalid Interpretation Code 0 - 150 mg/dL AO ADM SS TSH Qn 3.22 m[IU]/L Invalid Interpretation Code 0.36 - 3.74 mcIU/mL AO ADM SS Urea nitrogen [Mass/Vol] 9 mg/dL Invalid Interpretation Code 7 - 18 mg/dL AO ADM SS Urea nitrogen/Creatinine [Mass ratio] 12 ratio Invalid Interpretation Code 7 - 27 ratio AO ADM SS Vit. D 25-Hydroxy 21.5 ng/mL Invalid Interpretation Code AO ADM SS LABORATORYOrdered By: Hermila Pritchard on 06-11-2021 Basophil, Absolute 0.10 103/mcL Invalid Interpretation Code 0.00 - 0.19 10^3/mcL AO Auto Heme SS Basophils/100 WBC (Bld) 1.2 % Invalid Interpretation Code 0.0 - 2.5 % AO Auto Heme SS Eosinophil, Absolute 0.30 103/mcL Invalid Interpretation Code 0.00 - 0.40 10^3/mcL AO Auto Heme SS Eosinophils/100 WBC (Bld) 3.2 % Invalid Interpretation Code 0.0 - 7.0 % AO Auto Heme SS Erythrocyte distribution width (RBC) [Ratio] 13.7 % Invalid Interpretation Code 11.5 - 14.5 % AO Auto Heme SS Hematocrit (Bld) [Volume fraction] 47.3 % Invalid Interpretation Code 42.0 - 52.0 % AO Auto Heme SS Hemoglobin (Bld) [Mass/Vol] 15.9 G/dL Invalid Interpretation Code 14.0 - 18.0 G/dL AO Auto Heme SS Lymphocyte, Absolute 2.50 103/mcL Invalid Interpretation Code 0.77 - 3.85 10^3/mcL AO Auto Heme SS Lymphocytes/100 WBC (Bld) 30.4 % Invalid Interpretation Code 10.0 - 50.0 % AO Auto Heme SS MCH (RBC) [Entitic mass] 31.9 pg Invalid Interpretation Code 27.0 - 31.2 pg AO Auto Heme SS MCHC (RBC) [Mass/Vol] 33.6 G/dL Invalid Interpretation Code 31.8 - 35.4 G/dL AO Auto Heme SS MCV (RBC) [Entitic vol] 94.8 fL Invalid Interpretation Code 80.0 - 94.0 fL AO Auto Heme SS Monocyte, Absolute 0.70 103/mcL Invalid Interpretation Code 0.15 - 1.00 10^3/mcL AO Auto Heme SS Monocytes/100 WBC (Bld) 8.2 % Invalid Interpretation Code 1.7 - 13.0 % AO Auto Heme SS Neutrophil, Absolute 4.70 103/mcL Invalid Interpretation Code 2.85 - 6.16 10^3/mcL AO Auto Heme SS Neutrophils/100 WBC (Bld) 57.0 % Invalid Interpretation Code 37.0 - 80.0 % AO Auto Heme SS Platelet mean volume (Bld) [Entitic vol] 9.5 fL Invalid Interpretation Code 7.4 - 10.4 fL AO Auto Heme SS Platelets (Bld) [#/Vol] 314 103/mcL Invalid Interpretation Code 130 - 400 10^3/mcL AO Auto Heme SS RBC (Bld) [#/Vol] 4.99 106/mcL Invalid Interpretation Code 4.04 - 6.13 10^6/mcL AO Auto Heme SS WBC (Bld) [#/Vol] 8.30 103/mcL Invalid Interpretation Code 4.60 - 10.80 10^3/mcL AO Auto Heme SS LABORATORYOrdered By: SYSTEM SYSTEM on 06-11-2021 GFR 130 ml/min/1.73sqm Invalid Interpretation Code AO Chemistry S GFR Non- 107 ml/min/1.73sqm Invalid Interpretation Code AO Chemistry S LIPIDon 06-11-2021 Cholesterol [Mass/Vol] 275 mg/dL High 0-200 [facility] ([place]) Comment on above: Result Comment: Chol esterol Reference Interval: Less than 200 Desirable 200-239 Borderline high risk 240 and above High risk Performed By: #### C BC, ADIFF, ANEU, CMP, LIPID, GFR, TSH, PSA, VIDH #### [address] [address] Cholesterol in HDL [Mass/Vol] 48 mg/dL Normal 40-60 [facility] ([place]) Comment on above: Performed By: #### C BC, ADIFF, ANEU, CMP, LIPID, GFR, TSH, PSA, VIDH #### [address] [address] Cholesterol in LDL [Mass/Vol] 202 mg/dL High 0-130 [facility] ([place]) Comment on above: Performed By: #### C BC, ADIFF, ANEU, CMP, LIPID, GFR, TSH, PSA, VIDH #### [address] [address] Triglyceride [Mass/Vol] 123 mg/dL Normal 0-150 [facility] ([place]) Comment on above: Result Comment: Trig lyceride Reference Interval: Less than 150 Normal 150-199 Borderline high risk 200-499 High risk 500 or higher Very high risk Performed By: #### C BC, ADIFF, ANEU, CMP, LIPID, GFR, TSH, PSA, VIDH #### [address] [address] PSAon 06-11-2021 Prostate Specific Antigen 0.72 ng/mL Normal 0.00-4.00 [facility] ([place]) Comment on above: Performed By: #### C BC, ADIFF, ANEU, CMP, LIPID, GFR, TSH, PSA, VIDH #### [address] [address] TSHon 06-11-2021 TSH Qn 3.22 m[IU]/L Normal 0.36-3.74 [facility] ([place]) Comment on above: Performed By: #### C BC, ADIFF, ANEU, CMP, LIPID, GFR, TSH, PSA, VIDH #### [place] [address] [place], [place] [address] VIDHon 06-11-2021 Vit. D 25-Hydroxy 21.5 ng/mL Normal [facility] ([place]) Comment on above: Result Comment: Inte rpretive Values Based on Total 25(OH) Vitamin D: Deficient <20 ng/mL Insufficient 20 - <30 ng/mL Sufficient 30-100 ng/mL Performed By: #### C BC, ADIFF, ANEU, CMP, LIPID, GFR, TSH, PSA, VIDH #### [place] [address] [place], [place] [address] Vital Signs Date Time Vital Sign Value Performing Clinician Prasad baron 11-27-2024 17:15-0400 Body temperature 98 [degF] Dr. Elgin Honeycutt MD Work Phone: [facility] 11-27-2024 17:15-0400 Diastolic blood pressure 76 mm[Hg] Dr. Elgin Honeycutt MD Work Phone: [facility] 11-27-2024 17:15-0400 Heart rate 96 /min Dr. Elgin Honeycutt MD Work Phone: [facility] 11-27-2024 17:15-0400 Respiratory rate 16 /min Dr. Elgin Honeycutt MD Work Phone: [facility] 11-27-2024 17:15-0400 SaO2% (BldA) [Mass fraction] 96 % Dr. Elgin Honeycutt MD Work Phone: [facility] 11-27-2024 17:15-0400 Systolic blood pressure 128 mm[Hg] Dr. Elgin Honeycutt MD Work Phone: [facility] 11-27-2024 14:35-0400 Body height 190.[address] Elgin Honeycutt MD Work Phone: [facility] 11-27-2024 14:35-0400 Body mass index (BMI) [Ratio] 24.5 kg/m2 Dr. Elgin Honeycutt MD Work Phone: [facility] 11-27-2024 14:35-0400 Body weight 89.[address] Elgin Honeycutt MD Work Phone: [facility] 07-02-2024 11:18-0500 Body temperature 98.1 [degF] Dr. Elgin Honeycutt MD Work Phone: [facility] 07-02-2024 11:18-0500 Diastolic blood pressure 87 mm[Hg] Dr. Elgin Honeycutt MD Work Phone: 9(487)004-979396 [place] [address] 07-02-2024 11:18-0500 Heart rate 97 /min Dr. Elgin Honeycutt MD Work Phone: 4(028)147-084996 [place] [address] 07-02-2024 11:18-0500 Respiratory rate 20 /min Dr. Elgin Honeycutt MD Work Phone: 0(329)659-156996 [place] [address] 07-02-2024 11:18-0500 SaO2% (BldA) [Mass fraction] 94 % Dr. Elgin Honeycutt MD Work Phone: [facility] 07-02-2024 11:18-0500 Systolic blood pressure 134 mm[Hg] Dr. Elgin Honeycutt MD Work Phone: [facility] 07-02-2024 09:28-0500 Body mass index (BMI) [Ratio] 23.8 kg/m2 Dr. Elgin Honeycutt MD Work Phone: 3(021)489-738296 [place] [address] 07-02-2024 09:28-0500 Body weight 86.[address] Elgin Honeycutt MD Work Phone: [facility] 07-02-2024 09:18-0500 Body height 190.[address] Elgin Honeycutt MD Work Phone: [facility] 09-15-2023 07:54-0400 Body temperature 97.6 [degF] Dr. Ida Blanca Work Phone: [facility] 09-15-2023 07:54-0400 Diastolic blood pressure 75 mm[Hg] Dr. Ida Blanca Work Phone: 1(022)605-476542 [place] [address] 09-15-2023 07:54-0400 Heart rate 74 /min Dr. Ida Blanca Work Phone: 1(802)278-514042 [place] [address] 09-15-2023 07:54-0400 Respiratory rate 16 /min Dr. Ida Blanca Work Phone: 9(237)840-395342 [place] [address] 09-15-2023 07:54-0400 SaO2% (BldA) [Mass fraction] 98 % Dr. Ida Blanca Work Phone: 1(157)827-578442 [place] [address] 09-15-2023 07:54-0400 Systolic blood pressure 115 mm[Hg] Dr. Ida Blanca Work Phone: 8(343)261-166559 [place] [address] 09-14-2023 12:51-0400 Body height 190.[address] Ida Blanca Work Phone: 1(264)064-837259 [place] [address] 09-14-2023 12:51-0400 Body weight 73.[address] Ida Blanca Work Phone: 0(547)269-436042 [place] [address] 09-13-2023 06:03-0400 Body mass index (BMI) [Ratio] 20.2 kg/m2 Dr. Ida Blanca Work Phone: 8(148)182-309042 [place] [address] 09-05-2023 16:03-0500 Body temperature 98.5 [degF] Dr. Ida Blanca Work Phone: 0(724)687-199142 [place] [address] 09-05-2023 16:03-0500 Diastolic blood pressure 95 mm[Hg] Dr. Ida Blanca Work Phone: 3(401)813-588542 [place] [address] 09-05-2023 16:03-0500 Heart rate 82 /min Dr. Ida Blanca Work Phone: [facility] 09-05-2023 16:03-0500 Respiratory rate 16 /min Dr. Ida Blanca Work Phone: [facility] 09-05-2023 16:03-0500 SaO2% (BldA) [Mass fraction] 95 % Dr. Ida Blanca Work Phone: [facility] 09-05-2023 16:03-0500 Systolic blood pressure 155 mm[Hg] Dr. Ida Blanca Work Phone: [facility] 08-30-2023 11:40-0500 Body height 190.[address] Ida Blanca Work Phone: [facility] 08-30-2023 11:40-0500 Body weight 66.[address] Ida Blanca Work Phone: [facility] 08-29-2023 17:13-0500 Body mass index (BMI) [Ratio] 18.3 kg/m2 Dr. Ida Blanca Work Phone: [facility] Encounters Encounter Date Encounter Type Care Provider Facility Start: 01-22-2025 End: 01-22-[address] Elgin Honeycutt MD Work Phone: -Radiology [facility] Start: 01-22-2025 End: 01-22-[address] Quirino Perry MD -Radiology [facility] Work Phone: Start: 01-22-2025 End: 01-22-2025 ambulatory Quirino Perry Facility:[facility] Start: 11-27-2024 ambulatory Kiko Almanzar [place] Start: 11-27-2024 Non-patient / Non-visit Kiko Gamaliel DO -[facility] Start: 11-27-2024 End: 11-27-2024 Admission to same day surgery center Kiko Gamaliel DO -Endoscopy Work Phone: Start: 11-27-2024 End: 11-27-[address] Elgin Honeycutt MD Work Phone: [facility] Work Phone: Start: 11-27-2024 End: 11-27-2024 ambulatory Kiko Gamaliel Facility:[facility] Start: 11-06-2024 End: 11-06-[address] Elgin Honeycutt MD Work Phone: [facility] Work Phone: Start: 11-06-2024 End: 11-06-[address] Elgin Honeycutt MD -Radiology, [facility] Work Phone: Start: 11-06-2024 End: 11-06-2024 ambulatory Elgin Ermias Yinka Facility:[facility] Start: 10-15-2024 End: 10-15-[address] Elgin Honeycutt MD Work Phone: [facility] Work Phone: Start: 10-15-2024 End: 10-15-[address] Elgin Honeycutt MD -Cardiovascular Services Work Phone: Start: 10-15-2024 End: 10-15-2024 ambulatory Elgin Honeycutt Facility:[facility] Start: 09-30-2024 ambulatory Elgni Ermias Yinka Facility:[facility] Start: 09-26-2024 End: 09-26-[address] Elgin Honeycutt MD Work Phone: [facility] Work Phone: Start: 09-26-2024 End: 09-26-[address] Quirino Perry MD -Radiology, [facility] Work Phone: Start: 09-26-2024 End: 09-26-2024 ambulatory Quirino Perry Facility:[facility] Start: 09-21-2024 End: 09-21-[address] Quirino Perry MD -MRI - [facility] Work Phone: Start: 09-21-2024 End: 09-21-[address] Elgin Honeycutt MD Work Phone: [facility] Work Phone: Start: 09-20-2024 End: 09-21-[address] Elgin Honeycutt MD Work Phone: [facility] Work Phone: Start: 09-20-2024 End: 09-20-[address] Elgin Honeycutt MD -Laboratory Work Phone: Start: 09-20-2024 End: 09-20-2024 ambulatory Elgin Ermias Honeycutt Facility:[facility] Start: 08-27-2024 End: 08-27-[address] Elgin Honeycutt MD -Cat Scan, [facility] Work Phone: Start: 08-27-2024 End: 08-27-2024 ambulatory Elgin Monson Yinka Facility:[facility] Start: 08-22-2024 ambulatory [facility] Facility:[facility] Start: 08-22-2024 Non-patient / Non-visit Dr. Donna Salazar MD -[facility]- Start: 08-22-2024 End: 08-22-[address] Elgin Honeycutt MD -Pulmonary Services/Neurology Work Phone: Start: 08-22-2024 End: 08-22-2024 ambulatory [facility] Facility:[facility] Start: 07-30-2024 End: 07-30-[address] Elgin Honeycutt MD -MRI - [facility] Work Phone: Start: 07-30-2024 End: 07-30-2024 ambulatory [facility] Ermias Yinka Facility:[facility] Start: 07-03-2024 End: 07-03-[address] Elgin Honeycutt MD -Laboratory, Phy Office 3rd Flr Start: 07-03-2024 End: 07-03-2024 ambulatory Elgin Honeycutt Facility:[facility] Start: 07-02-2024 End: 07-02-2024 Emergency department patient visit Dr. Jesse Mak DO -Emergency Department Work Phone: Start: 03-28-2024 End: 03-28-2024 ambulatory [facility] Ermias [facility] Facility:[facility] Start: 11-01-2023 End: 11-01-[address] Ida Blanca Work Phone: [facility] Work Phone: Start: 11-01-2023 End: 11-01-[address] [facility] Start: 10-24-2023 End: 10-24-[address] Ida Blanca Work Phone: [facility] Work Phone: Start: 10-24-2023 End: 10-24-[address] [facility] Start: 10-11-2023 End: 10-11-[address] Ida Blanca Work Phone: [facility] Work Phone: Start: 10-11-2023 End: 10-11-[address] Ida Blanca Work Phone: [facility]-Outpatient Bone Densitometry Work Phone: Start: 10-08-2023 End: 10-08-[address] Ida Blanca Work Phone: [facility] Work Phone: Start: 10-08-2023 End: 10-08-[address] Ida Blanca Work Phone: [facility]-Cat Scan, [facility] Work Phone: Start: 09-23-2023 End: 09-23-[address] Ida Blanca Work Phone: [facility] Work Phone: Start: 09-23-2023 End: 09-23-[address] [facility] Start: 09-20-2023 End: 09-20-[address] Ida Blanca Work Phone: [facility] Work Phone: Start: 09-20-2023 End: 09-20-[address] Ida Blanca Work Phone: [facility]-Laboratory, Phy Office 3rd Flr Start: 09-05-2023 End: 09-15-2023 Evaluation and management of inpatient Dr. Ida Blanca Work Phone: [facility]-Transitional Care Unit Start: 09-05-2023 Non-patient / Non-visit Dr. Ida Blanca Work Phone: [facility] Work Phone: Start: 09-04-2023 Non-patient / Non-visit Dr. Ida Blanca Work Phone: [facility] Work Phone: Start: 09-03-2023 Non-patient / Non-visit Dr. Ida Blanca Work Phone: [facility] Work Phone: Start: 09-02-2023 Non-patient / Non-visit Dr. Ida Blanca Work Phone: [facility] Work Phone: Start: 09-01-2023 Non-patient / Non-visit Dr. Ida Blanca Work Phone: [facility] Work Phone: Start: 08-31-2023 Non-patient / Non-visit Dr. Ida Blanca Work Phone: [facility] Work Phone: Start: 08-30-2023 Non-patient / Non-visit Dr. Ida Blanca Work Phone: [facility] Work Phone: Start: 08-29-2023 Non-patient / Non-visit Dr. Ida Blanca Work Phone: [facility] Work Phone: Start: 08-29-2023 End: 09-05-2023 Evaluation and management of inpatient Dr. Ida Blanca Work Phone: [facility]-Medical Surgical 3 Work Phone: Start: 10-13-2021 End: 10-17-2021 Outreach Lab VEL KOCH E COMMERCE STRATEGIST - EVENT ATTENDANT [facility] Start: 09-10-2021 End: 09-14-2021 Outreach Lab VEL KOCH E COMMERCE STRATEGIST - EVENT ATTENDANT [facility] Start: 07-01-2021 End: 07-01-2021 Patient encounter procedure JUAN DELATORRE E COMMERCE STRATEGIST-ASSISTANT PROFESSOR SCULPTURE [facility] Start: 06-11-2021 End: 06-11-2021 Patient encounter procedure VEL KOCH E COMMERCE STRATEGIST - EVENT ATTENDANT [facility] Procedures Date Procedure Procedure Detail Performing Clinician Start: 01-22-2025 X-ray of lumbar spin e, two or three views Dr. Elgin Honeycutt MD Work Phone: Start: 11-06-2024 X-ray of upper gastrointestinal tract with small bowel follow through Dr. Elgin Honeycutt MD Work Phone: Start: 09-26-2024 X-ray of lumbar spin e, two or three views Dr. Elgin Honeycutt MD Work Phone: Start: 09-26-2024 X-ray of thoracic sp ine, three views Dr. Elgin Honeycutt MD Work Phone: Start: 09-21-2024 MRI of cervical spine Jesus Honeycutt MD Work Phone: Start: 09-20-2024 Prostate specific an tigen measurement Dr. Elgin Honeycutt MD Work Phone: Comment on above: This test was perfor med using the [employer] tPSA method. Measured values of a patient sample can vary depending on the testing procedure used. PSA values determined on patient samples by different testing procedures cannot be used interchangeably. If there is a change in PSA assays while monitoring therapy, sequential testing should be performed to confirm baseline values. Start: 09-20-2024 Vitamin D, 25-hydrox y measurement Dr. Elgin Honeycutt MD Work Phone: Comment on above: Vitamin D StatusDefi ciency: <20 ng/mL (50nmol/L)Insufficiency: 20-30 ng/mL (50-75 nmol/L)Sufficiency: 30-100 ng/mL (75-250 nmol/L)Toxicity: >100 ng/mL (>250 nmol/L) Start: 08-27-2024 Computed tomography of abdomen and pelvis with contrast Dr. Elgin Honeycutt MD Work Phone: Start: 08-27-2024 Assay of phosphorus inorganic Dr. Elgin Honeycutt MD Work Phone: Start: 08-27-2024 Measurement of renal function Dr. Elgin Honeycutt MD Work Phone: Comment on above: GFR Calc Start: 07-30-2024 MRI of brain without contrast Dr. Elgin Honeycutt MD Work Phone: Start: 07-02-2024 Plain chest X-ray Dr. Leonid Honeycutt MD Work Phone: Start: 07-02-2024 Plain X-ray of shoulder Dr. Elgin Honeycutt MD Work Phone: Start: 07-02-2024 X-ray of cervical spine Dr. Elgin Honeycutt MD Work Phone: Start: 10-11-2023 Dual energy X-ray absorptiometry Dr. Ida Blanca Work Phone: Start: 10-08-[address] Fabien Blanca Work Phone: Start: 08-29-2023 CT of head without contrast Dr. Ida Blanca Work Phone: Start: 08-29-2023 Plain chest X-ray Dr. Kvng Blanca Work Phone: Start: 08-29-2023 CT of lumbar spine Dr. Ida Blanca Work Phone: Breast structure (jake dy structure) JUAN DELATORRE E COMMERCE STRATEGIST-ASSISTANT PROFESSOR SCULPTURE Comment on above: breast surgery in [facility] in Aug 2020. pat has disk but forgot to bring it in today Plan of Treatment Date Care Activity Detail Author Start: 11-27-2024 Egd transoral biopsy single/multiple EGD BIOPSY SINGLE/MULTIPLE [facility] Start: 07-02-2024 [facility] Start: 09-15-2023 Patient discharge [facility] Start: 09-14-2023 Development of care plan [facility] Start: 09-12-2023 [facility] Start: 09-08-2023 [facility] Start: 09-06-2023 Development of care plan [facility] Start: 09-06-2023 Speech therapy management [facility] Start: 09-06-2023 Developing a treatment plan [facility] Start: 09-06-2023 Following clinical p athway protocol [facility] Start: 09-06-2023 [facility] Start: 09-06-2023 Speech therapy assessment [facility] Start: 09-05-2023 [facility] Start: 09-05-2023 Admission procedure [facility] Start: 09-05-2023 Measuring intake and output [facility] Start: 09-05-2023 End: 09-06-2023 Patient referral to dietitian [facility] Start: 09-05-2023 Referral to occupati onal therapist [facility] Start: 09-05-2023 Referral to service [facility] Start: 09-05-2023 Vital signs measurements [facility] Start: 09-05-2023 [facility] Start: 09-05-2023 Patient discharge [facility] Start: 08-31-2023 [facility] Start: 08-31-2023 Referral to occupati onal therapist [facility] Start: 08-30-2023 Referral to service [facility] Start: 08-29-2023 End: 08-30-2023 [facility] Start: 08-29-2023 Application of inter mittent pneumatic compression device [facility] Start: 08-29-2023 Following clinical p athway protocol [facility] Start: 08-29-2023 Assessment of risk o f venous thromboembolism [facility] Start: 08-29-2023 Documentation procedure [facility] Start: 08-29-2023 Notification of physician [facility] Start: 08-29-2023 Provision of activit y privileges [facility] Start: 08-29-2023 Vital signs measurements [facility] Start: 08-29-2023 Admission procedure [facility] Start: 08-29-2023 Patient referral to dietitian [facility] Elastase.pancreatic [Presence] in Stool [facility] Patient Education ED Neck Spasm, No Trauma [facility] Work Phone: Patient referral [facility] Work Phone: Immunizations Immunization Date Immunization Notes Care Provider Fa yane 09-06-2023 Influenza High-Dose Quadrivalent Dr. Ida Blanca Work Phone: [facility] 09-06-2023 Pneumococcal Vaccine PCV20 (Prevnar 20) Dr. Ida Blanca Work Phone: [facility] 05-26-2021 influenza, injectabl e, quadrivalent, contains preservative; Translations: [Fluarix PF Quadrivalent ] VEL KOCH E COMMERCE STRATEGIST - EVENT ATTENDANT [facility] Payers Date Payer Category Payer Medicare [id number] 2024 Self-pay [id number] Medicare MEDICARE PART A B [id number] Unknown [id number] Unknown [facility] *DO NOT USE* [id number] Unknown [id number] 2.16.8 [id number] Unknown [id number] 2.16.8 40.1.588327.3.579.2.462 Unknown [id number] 2.16.8 40.1.267922.3.579.2.462 Unknown [id number] 2.16.8 40.1.823035.3.579.2.462 Unknown [id number] 2.16.8 40.1.636666.3.579.2.462 Unknown [id number] 2.16.8 40.1.294758.3.579.2.462 Unknown [id number] 2.16.8 40.1.772749.3.579.2.462 Unknown [id number] 2.16.8 40.1.255248.3.579.2.462 Unknown [id number] 2.16.8 40.1.412852.3.579.2.462 Unknown [id number] 2.16.8 40.1.300191.3.579.2.462 Unknown [id number] 2.16.8 40.1.062935.3.579.2.462 Unknown [id number] 2.16.8 40.1.385456.3.579.2.462 Unknown [id number] 2.16.8 40.1.179836.3.579.2.462 Unknown [id number] 2.16.8 40.1.358028.3.579.2.462 Unknown [id number] 2.16.8 40.1.285497.3.579.2.462 Unknown [id number] 2.16.8 40.1.475483.3.579.2.462 Unknown [id number] 2.16.8 40.1.547404.3.579.2.462 Unknown [id number] 2.16.8 40.1.450875.3.579.2.462 Social History Date Type Detail Facility Start: 05-26-2021 Heavy tobacco smoker (finding) [facility] Assigned At [facility] Start: 08-29-2023 End: 09-15-2023 Tobacco smoking status NHIS Unknown if ever smoked [facility] Start: 1960 Sex Assigned At Male [facility] Start: 09-21-2024 End: 11-27-2024 Tobacco smoking status NHIS Smokes tobacco daily (finding) [facility] Start: 09-27-2024 End: 10-18-2024 Sex Male (finding) [facility] Goals Date Patient Goal Desired Activity /State Functional Status Date Assessment Result Facility 09-15-2023 Functional status Up ad murtaza;Chair [facility] Work Phone: 09-05-2023 Functional status Ambulates [facility] Work Phone: Mental Status Date Assessment Result Facility 11-27-2024 Cognitive function Voice/Name [facility] Work Phone: 11-27-2024 Cognitive function Patient Orien tation Person;Place;Time [facility] Work Phone: 09-15-2023 Cognitive function Voice/Name [facility] Work Phone: 09-14-2023 Cognitive function Level Of Cons ciousness Awake;Alert;Appropriate;Follow s Commands [facility] Work Phone: 09-05-2023 Cognitive function Voice/Name [facility] Work Phone: Clinical Notes 08-29-2023 to 01-23-2025 Note Date & Type Note Facility 01-23-2025 Radiology Diagnostic study note [facility] Imaging Services [address] [place] [address] Lumbar Spine 2 or 3 Views MR#: [id number] Acct: [id number] Name: JULI DAVIDSON Rep #: [id number] : 1960 M 64 From: Humera Mazariegos MD PCP: Care Physician,No Primary Status: REG CLI Study:Lumbar Spine 2 or 3 Views Date of Exam: 01/22/25 Exam# [id number] Ordering Dr: Quirino Perry MD EXAM: XR Lumbosacral Spine, 2 or 3 Views CLINICAL INDICATION: LUMBAR RADICULOPATHY TECHNIQUE: Frontal and lateral views of the lumbar spine and sacrum. COMPARISON: No relevant prior studies available. FINDINGS: VERTEBRAE: Moderate compression deformity of T12 vertebral body status post vertebroplasty. Mild facet arthropathy of L for the S1. Normal alignment. SACRUM/COCCYX: Unremarkable as visualized. No acute fracture. DISC SPACES: No acute findings. No significant narrowing. SOFT TISSUES: Unremarkable. VASCULATURE: Scattered calcified atherosclerotic disease of aorta. RAD/Lumbar Spine 2 or 3 Views IMPRESSION: 1. Postoperative changes as above. 2. Degenerative changes as above. Reading Location: [facility] CC: Dr. Quirino Perry MD; No Primary Care Physician ~ Foxing Closer: Signed [facility] 11-27-2024 Consult note Note Date/Time November 27, 2024 8:25p m [facility] Medical Records Department [address] [place] [address] Anesthesia Postop Eval II 11/27/242022 MR#: [id number] Acct: [id number] Name: JULI DAVIDSON Rep #:[id number] : 1960 64 From: Andrez Faith MD PCP: Dr. Elgin Honeycutt MD Status:REG S DC Y Race: C Location: EN Anesthesia Postop Eval I Sum Postop Eval Completion status Anesthesia document: Postop Eval 1 completed: Yes Anesthesia Postop Eval I Summary Anesthesia Postop Eval I Summary: Anesthesia Postop Eval I: Assessment Summary Airway patent Yes 11/27/24 17:09 [email or web address] [email or web address] Spontaneous unlabored Yes 11/27/24 17:09 [email or web address] [email or web address] respirations Mental status nausea No 11/27/24 17:09 [email or web address] [email or web address] Vomiting No 11/27/24 17:09 [email or web address] [email or web address] Anesthesia Postop Eval I: Fluid Summary Crystalloid volume administer 700 11/27/24 17:09 [email or web address] [email or web address] (ml) Colloids volume administered ( ml) Blood Product volume administered (ml) Total IV fluid infused 700 11/27/24 17:09 [email or web address] [email or web address] Anesthesia Postop Eval I: Summary Notes Anesthesia Complication No 11/27/24 17:09 [email or web address] [email or web address] Anesthesia Complication Comment: Post-operative progress note Anesthesia: Postop Eval II Evaluation Mental status: Awake and Calm Pain Level: 0 nausea: No Vomiting: No Complications Anesthesia Complication: No 11/27/242024 <Electronically signed by Andrez michaud MD> Date _ Andrez Faith MD Cosigner Signature: Date CC: ~ Signed [facility] Work Phone: 1(686) 727-601105-27-2025 Consult note [facility] Medical Records Department [address] [place] [id number] Anesthesia Postop Eval II 11/27/242022 MR#: [id number] Acct: [id number] Name: JULI DAVIDSON Rep #:[id number] : 1960 64 From: Andrez Faith MD PCP: Dr. Elgin Honeycutt MD Status:REG S DC Y Race: C Location: EN Anesthesia Postop Eval I Sum Postop Eval Completion status Anesthesia document: Postop Eval 1 completed: Yes Anesthesia Postop Eval I Summary Anesthesia Postop Eval I Summary: Anesthesia Postop Eval I: Assessment Summary Airway patent Yes 11/27/24 17:09 [email or web address] [email or web address] Spontaneous unlabored Yes 11/27/24 17:09 [email or web address] [email or web address] respirations Mental status nausea No 11/27/24 17:09 SALESPERSON [email or web address] Vomiting No 11/27/24 17:09 SALESPERSON [email or web address] Anesthesia Postop Eval I: Fluid Summary Crystalloid volume administer 700 11/27/24 17:09 SALESPERSON [email or web address].TNES (ml) Colloids volume administered ( ml) Blood Product volume administered (ml) Total IV fluid infused 700 11/27/24 17:09 SALESPERSON [email or web address] Anesthesia Postop Eval I: Summary Notes Anesthesia Complication No 11/27/24 17:09 SALESPERSON [email or web address] Anesthesia Complication Comment: Post-operative progress note Anesthesia: Postop Eval II Evaluation Mental status: Awake and Calm Pain Level: 0 nausea: No Vomiting: No Complications Anesthesia Complication: No 11/27/242024 keily ADHIKARI> Date _ Andrez Faith MD Cosigner Signature: Date CC: ~ Signed [facility]05-27-2025 Consult note Author Zia Martin [facility] Note Date/Time November 27, 2024 5:09p [facility] Medical Records Department [address] [place] [address] Anesthesia Postop Eval I 11/27/24 1709 MR#: [id number] Acct: [id number] Name: JULI DAVIDSON Rep #:[id number] : 1960 64 From: Zia CRAWLEY PCP: Dr. Elgin Honeycutt MD Status:REG S DC Y Race: C Location: EN Anesthesia: Postop Eval I Current Vital Signs Temperature: 97.9 F Pulse Rate: 90 Blood Pressure: 116/67 Respiratory Rate: 16 Pulse Ox: 97 Assessment Airway patent: Yes Spontaneous unlabored respirations: Yes nausea: No Vomiting: No Anesthesia Complication: No Fluid Hydration Crystalloid volume administer (ml): 700 Total IV fluid infused: 700 Progress Note Anesthesia document: Postop Eval 1 completed: Yes 11/27/24 1705 <Electronically signed by Zia Martin CRNA> Date _ Zia Martin CRNA Cosigner Signature: Date CC: ~ Signed [facility] Work Phone: 1(689) 528-992505-27-2025 History and physical note Author Kiko Almanzar [facility] Note Date/Time November 27, 2024 4:44p m [facility] Medical Records Department [address] [place] [address] History & Physical Exam 11/27/24 1643 MR#: [id number] Acct: [id number] Name: JULI DAVIDSON Rep #:[id number] : 1960 64 From: Kikokori Almanzar DO PCP: Dr. Elgin Honeycutt MD Status:REG S DC Location: [facility] - General General Date of Admission: 11/27/24 Date of Service: 11/27/24 Chief Complaint: Abdominal pain , weight loss and chronic pancreatitis HPI Narrative JULI DAVIDSON, is a 64 M who presents for the evaluation of abdominal pain weight loss and chronic pancreatitis. Pt referred to I from his PCP Dr. Honeycutt for chronic pancreatitis. Pt has complaints of daily abd pain that radiates all over. It is not specifically in the epigastric region. He has nausea 2-3x per week but does not vomit. He has alternating bowels with constipation and loose stools. He notes having a colonoscopy many years ago. He continues to smoke and states I will stop when I . He denies any alcohol use. [facility] Medical History Wears glasses Wears dentures Alcohol use Liver spots Rheumatoid arthritis Restless legs Migraine headache No natural teeth Difficulty swallowing Difficulty chewing Heartburn Gastric reflux Cancer History of echocardiogram History of stress test History of heart attack Stroke/cerebrovascular accident COPD (chronic obstructive pulmonary disease) Smoker Rhabdomyolysis Hyponatremia Fall Debility T12 compression fracture Recurrent falls Thrombocytopenia Alcohol abuse Home Medications ?Medication ?Instructions ?Recorded ?Last Taken ?Type folic acid 1 mg tablet 1 mg PO DAILYCM 30 days #30 tabs 09/13/23 Unknown Rx nicotine 21 mg/24 hr daily 21 mg transdermal DAILY 30 days 09/13/23 Unknown Rx transdermal patch #30 ea thiamine HCl (vitamin B1) 100 mg 100 mg PO DAILY 30 da ys #30 tabs 09/13/23 Unknown Rx tablet (Vitamin B-1) cyclobenzaprine 10 mg tablet 10 mg PO TID PRN Muscle S pasm #15 07/02/24 Unknown Rx TABLETS gabapentin 800 mg tablet 800 mg PO TID 07/02/24 Unkno wn History lidocaine 5 % topical patch 1 patch topical DAILY 5 da ys #5 ea 07/02/24 Unknown Rx (Lidoderm) Allergy/AdvReac Type Severity Reaction Status Date / Time No Known Allergies Allergy Verified 11/27/24 14:15 Surgical History History of colonoscopy History of hand surgery History of lumpectomy of both breasts History of vasectomy History of cardiac catheterization Social History household members: none Smoking Status: Current every day smoker (Patient smoked today.) tobacco type: cigars quit status: not considering quitting alcohol intake: current Alcohol type: beer details: 12 beers daily. substance use type: does not use ROS Constitutional Constitutional: Denies fatigue, fever(s), poor appetite, weight gain or weight loss Gastrointestinal Gastrointestinal: Denies belching, bloating, change in bowel habits, change in stool character, chewing difficulty, coffee ground emesis, constipation, cramping, diarrhea, dyspepsia, dysphagia, early satiety, excessive flatus, fecalincontinence, heartburn, hematemesis, hematochezia, hemorrhoids, loose stools, melena, nausea, odynophagia, rectal bleeding, tenesmus, vomiting or weight changes Vital Signs Vital Signs Vital Signs: 11/27/24 14:34 11/27/24 14:35 11/27/24 15:49 Temperature 98.3 F 98.3 F Temperature Source Temporal Pulse Rate 93 93 Respiratory Rate 16 16 Respiratory Pattern Normal Blood Pressure 133/87 H 133/87 H Blood Pressure Mean 102 Blood Pressure Source Monitor Blood Pressure Position Semi-Fowlers Blood Pressure Location Left Arm Pulse Ox 95 95 Oxygen Delivery Method Room Air Room Air Weight Weight: 196 lb 12.8 oz Body Mass Index (BMI) 24.5 Physical Exam Const alert, oriented x3, no apparent distress and healthy appearing General Appearance: cooperative GI normal to inspection, nondistended, normoactive bowel sounds, soft to palpation,non-tender and non-distended Percussion: normal to percussion Rectal Exam: deferred Assessment & Plan Assessment/Plan (1) Chronic pancreatitis: (2) Severe malnutrition: PLAN: Assessment and Plan Assessment and Plan (1) Chronic pancreatitis: Status: Chronic Plan: This is a 64 yo male pt with PMHx of alcohol abuse with recent diagnosis of chronic pancreatitis. He is here today for evaluation. He has daily diffuse abd pain, alternating bowels and nausea. He notes having a colonoscopy many years ago. He will undergo EGD and colonoscopy to evaluation his GI tract. I will order stool testing for EPI. I provided pt with samples of creon to take before he eats. -Colonoscopy and EGD -Trial Creon -Stool test for EPI Orders: Orders Pancreatic Elastase, Fecal Today K86.1 - Other chronic pancreatitis 11/27/24 1644 <Electronically signed by Kiko Almanzar DO> Cosigner Signature (if applicable): CC: Dr. Elgin Honeyctut MD; Kiko Almanzar DO~ Signed [facility] Work Phone: [phone]) 678-127605-27-2025 Consult note Author Andrez Faith [facility] Note Date/Time November 27, 2024 3:52p m [facility] Medical Records Department [address] [place] [address] Pre-Anesthesia Evaluation 11/27/24 1527 MR#: [id number] Acct: [id number] Name: JULI DAVIDSON Rep #:[id number] : 1960 64 From: Andrez Faith MD PCP: Dr. Elgin Honeycutt MD Status:REG S DC Y Race: C Location: EN ADDENDUM by Dr. Andrez Faith MD on 11/27/24 at 1552 Addendum Patient does have expiratory wheeze and rhonchi on physical exam. Will give nuzhat nebulizer breathing treatment preop. 11/27/24 1552 <Electronically signed by Andrez michaud MD> Date _ Andrez Faith MD cc: ~* Signed ASA Classification* ASA Classification ASA Classification: 4 Assessment & Plan Anesthesia* Anesthesia Assessment Anesthesia Assessment: Discussed sedation and/or anesthesia options, risks, benefits, and alternatives with patient/parents/legal guardian/POA. Questions invited. The patient/parents/legal guardian/POA seems to understand and agrees to proceedwith anesthesia plan. Reviewed the physical assessment, medical history, allergy history and patient home medications list prior to surgery/procedure/anesthetic and documented any changes. Performed airway and anesthesia risk assessments. Anesthesia Type Anesthesia Type: MAC History Source History Obtained from:: Patient and Chart Anesthesia Focused Assessment* Temperature: 98.3 F Pulse Rate: 93 Blood Pressure: 133/87 Respiratory Rate: 16 Pulse Ox: 95 Oxygen Delivery Method: Room Air Airway Assessment Mouth opens: >3 cm Mallampati Score: I Teeth Condition: Dentures (Patient has full upper and lower dentures. They are out.) Neck Range of motion (ROM): Full ROM Focused Labs Anesthesia Preop lab: CBC WBC 6.0 K/mm3 (4.4-11.0) 09/20/24 09:10 09/20/24 RBC 5.27 M/mm3 (4.6-6.2) 09/20/24 09:10 09/20/24 Hgb 16.9 g/dL (13.0-16.5) H 09/20/24 09:10 5 Hct 50.2 % (40-54) 09/20/24 09:10 09/20/24 Plt Count 254 K/mm3 (150-450) 09/20/24 09:10 09/20/24 CHEMISTRY Potassium 4.3 mmol/L (3.3-5.1) 09/20/24 09:10 09/20/24 Sodium 134 mmol/L (133-145) 09/20/24 09:10 09/20/24 Magnesium 2.2 mg/dL (1.6-2.6) 08/27/24 14:28 08/27/24 Phosphorus 2.3 mg/dL (2.5-4.9) L 08/27/24 14:28 08/27/24 BUN 7 mg/dL (4-19) 09/20/24 09:10 09/20/24 Creatinine 0.75 mg/dL (0.70-1.20) 09/20/24 09:10 09/20/24 Glucose 116 mg/dL (70-99) H 09/20/24 09:10 09/20/24 TSH 1.970 uIU/mL (0.300-4.200) 09/20/24 09:10 09/02 COAG PT 13.2 SECONDS (11.7-14.9) 10/24/23 09:17 Pre-Assessment Diagnosis/Proposed Procedure Planned Operative Procedure(s): egd Anesthesia History Anesthesia History - regulatory affairs spec: Anesthesia History - regulatory affairs spec Hx Hospitalization No 11/27/24 14:17 Any Problems With Anesthesia No 11/27/24 14:17 Cholinesterase deficiency No 11/27/24 14:17 You/Your Family Experience No 11/27/24 14:17 fever (hyperthermia) with Relationship Recent Exposure to Contagious No 11/27/24 14:34 Disease Does patient have nerve No 11/27/24 14:17 stimulator Patient instructed to have device shut off --Does patient have Pacemaker No 11/27/24 14:35 or ICD? When Was Last Pacemaker Check QUESTION #4 FULL TEXT: You/Your Family Experience fever (hyperthermia) with Anesthesia Last Oral Intake Last Oral intake: Last Oral Intake NPO since 00:00 11/27/24 14:35 Meds taken in AM with sips of No 11/27/24 14:35 water? Meds patient instructed to take am of surgery PONV PONV - regulatory affairs spec: PONV - regulatory affairs spec Female No 11/27/24 14:17 HX of Motion Sickness No 11/27/24 14:17 HX of N/V After Surgery No 11/27/24 14:17 Non-Smoker No 11/27/24 14:17 Duration of Surgery greater No 11/27/24 14:17 than 60 minutes Number of Risk Factors PONV Score Height & Weight Height & Weight: Anesthesia: Height & Weight Height 6 ft 3 in 11/27/24 14:35 Weight: 89.267 kg 11/27/24 14:35 Body Mass Index (BMI) 24.5 11/27/24 14:35 Respiratory Assessment Respiratory Assessment - regulatory affairs spec: Respiratory Tract Infection Hx - regulatory affairs spec Hx Respiratory Tract Infection No: chronic cough from COPD 11/27/24 14:17 STOP Sleep Apnea STOP Sleep Apnea - regulatory affairs spec: STOP Sleep Apnea - regulatory affairs spec Hx Hypertension No 11/27/24 14:17 Hx Sleep Apnea No 11/27/24 14:17 CPAP BIPAP Do you snore loudly (louder No 11/27/24 14:17 than talking or can be heard Do you often feel tired/ No 11/27/24 14:17 fatigued/ sleepy during daytime? Has anyone observed you stop No 11/27/24 14:17 breathing during sleep? STOP Results Negative 11/27/24 14:17 QUESTION #5 FULL TEXT : Do you snore loudly (louder than talking or can be heard through closed doors)? 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 Specify any problems Hx of Preganancy in last 3 N/A 11/27/24 14:17 Months Nurse Filling Out Transfusion NBUCHER 11/27/24 14:17 & Questions: Date: 11/27/24 11/27/24 14:17 Time: 14:20 11/27/24 14:17 Patient unable to answer at this time (ie. confused, unrespo /Reproduction History /Reproductive History - regulatory affairs spec: /Reproductive Hx- regulatory affairs spec Hx Now No 11/27/24 14:17 Gestational Age (in weeks): EDC: Hx Hx Para Hx Section SAB No 11/27/24 14:17 Active Medications Active Medications: Current Medications Generic Name Dose Route Start Last Admin Trade Name Freq PRN Reason Stop Dose Admin Lactated Ringer's 1,000 mls @ 15 mls/hr 11/27/24 14:15 11/27/24 14:15 IV 15 mls/hr .Q48H ALMA ROSA Administration PFSH Medical History Wears glasses Wears dentures Alcohol use Liver spots Rheumatoid arthritis Restless legs Migraine headache No natural teeth Difficulty swallowing Difficulty chewing Heartburn Gastric reflux Cancer History of echocardiogram History of stress test History of heart attack Stroke/cerebrovascular accident COPD (chronic obstructive pulmonary disease) Smoker Rhabdomyolysis Hyponatremia Fall Debility T12 compression fracture Recurrent falls Thrombocytopenia Alcohol abuse Home Medications ?Medication ?Instructions ?Recorded ?Last Taken ?Type folic acid 1 mg tablet 1 mg PO DAILYCM 30 days #30 tabs 09/13/23 Unknown Rx nicotine 21 mg/24 hr daily 21 mg transdermal DAILY 30 days 09/13/23 Unknown Rx transdermal patch #30 ea thiamine HCl (vitamin B1) 100 mg 100 mg PO DAILY 30 da ys #30 tabs 09/13/23 Unknown Rx tablet (Vitamin B-1) cyclobenzaprine 10 mg tablet 10 mg PO TID PRN Muscle S pasm #15 07/02/24 Unknown Rx TABLETS gabapentin 800 mg tablet 800 mg PO TID 07/02/24 Unkno wn History lidocaine 5 % topical patch 1 patch topical DAILY 5 da ys #5 ea 07/02/24 Unknown Rx (Lidoderm) Allergy/AdvReac Type Severity Reaction Status Date / Time No Known Allergies Allergy Verified 11/27/24 14:15 Surgical History (Updated 11/27/24 @ 14:33 by Jihan Amanda) History of colonoscopy History of hand surgery History of lumpectomy of both breasts History of vasectomy History of cardiac catheterization Social History (Updated 09/21/24 @ 12:48 by Karolina Barber LPN) household members: none Smoking Status: Current every day smoker tobacco type: cigars quit status: not considering quitting alcohol intake: current Alcohol type: beer details: 12 beers daily. substance use type: does not use Review of Systems (Anesthesia) ROS Narrative System reviewed and no additional complaints, except as documented. 11/27/24 1549 <Electronically signed by Andrez michaud MD> Date _ Andrez Faith MD Cosigner Signature: Date CC: ~ Signed [facility] Work Phone: [phone]) 555-416805-27-2025 Procedure note [facility] Medical Records Department [address] [place] [id number] EGD Report MR#: [id number] Acct: [id number] Name: JULI DAVIDSON Rep #:[id number] : 1960 64 From: Kiko Almanzar DO PCP: Dr. Elgin Honeycutt MD Status:REG S DC Patient Name: Juli Davidson Procedure Date: 11/27/2024 4:43 PM Date of : 1960 Age: 64 Procedure: Upper GI endoscopy Indications: Epigastric abdominal pain, Functional Dyspepsia, Indigestion, Heartburn Providers: Kiko Almanzar DO Referring MD: Elgin Honeycutt MD Medicines: Monitored Anesthesia Care Patient Profile: This is a 64 year old male. Refer to note in patient chart for documentation of history and physical. Patient has symptoms of acute abdominal cramping, acute abdominal distention, chronic epigastric abdominal pain and chronic dyspepsia. Complications: No immediate complications. Procedure: Pre-Anesthesia Assessment: - Prior to the procedure, a History and Physical was performed, and patient medications and allergies were reviewed. The patient is competent. The risks and benefits of the procedure and the sedation options and risks were discussed with the patient. All questions were answered and informed consent was obtained. Patient identification and proposed procedure were verified by the physician in the pre-procedure area. Mental Status Examination: alert and oriented. Airway Examination: normal oropharyngeal airway and neck mobility. Respiratory Examination: clear to auscultation. CV Examination: normal. Prophylactic Antibiotics: The patient does not require prophylactic antibiotics. Prior Anticoagulants: The patient has taken Coumadin (warfarin), last dose was 12 days prior to procedure. ASA Grade Assessment: I - A normal, healthy patient. After reviewing the risks and benefits, the patient was deemed in satisfactory condition to undergo the procedure. The anesthesia plan was to use minimal sedation / analgesia (anxiolysis). Immediately prior to administration of medications, the patient was re-assessed for adequacy to receive sedatives. The heart rate, respiratory rate, oxygen saturations, blood pressure, adequacy of pulmonary ventilation, and response to care were monitored throughout the procedure. The physical status of the patient was re-assessed after the procedure. The gastroscope was introduced through the mouth, and advanced to the third part of the duodenum. Small bowel enteroscopy was deemed necessary. The upper GI endoscopy was accomplished without difficulty. The patient tolerated the procedure well. Scope In: 4:57:54 PM Scope Out: 5:00:31 PM Total Procedure Duration Time 0 hours 2 minutes 37 seconds Findings: No gross lesions were noted in the entire esophagus. A hiatal hernia was present. No gross lesions were noted in the entire examined stomach. Patchy mildly erythematous mucosa without active bleeding and with no stigmata of bleeding was found in the duodenal bulb. Biopsies were taken with a cold forceps for histology. Verification of patient identification for the specimen was done. Estimated blood loss was minimal. Impression: - No gross lesions in the entire esophagus. - Hiatal hernia. - No gross lesions in the entire stomach. - Erythematous duodenopathy. Biopsied. Recommendation: - Discharge patient to home. - Resume previous diet. - Continue present medications. - Await pathology results. Procedure Code(s): --- Professional --- 35345, Small intestinal endoscopy, enteroscopy beyond second portion of duodenum, not including ileum; with biopsy, single or multiple CPT copyright 2021 [employer]. All rights reserved. The codes documented in this report are preliminary and upon brusher machine review may be revised to meet current compliance requirements. Kiko Almanzar DO 11/27/2024 5:26:40 PM This report has been signed electronically. Number of Addenda: 0 Note Initiated On: 11/27/2024 4:43 PM 11/27/241726 Date _ Kiko Almanzar DO Cosigner Signature: Date (if indicated) CC: Dr. Elgin Honeycutt MD; Kiko Almanzar DO ~ Date Dictated: 11/27/24 1643 Date Transcribed: Foxing Closer: RF Signed [facility]05-27-2025 Procedure note [facility] Medical Records Department [address] [place] [address] Operative Report - CC Letter MR#: [id number] Acct: [id number] Name: JULI DAVIDSON Rep #:[id number] : 1960 64 From: Kiko Almanzar DO PCP: Dr. Elgin Honeycutt MD Status:REG S DC 11/27/2024 Elgin Honeycutt MD [address] [place] [address] Re : Upper GI endoscopy procedure for Juli Davidson Dear Dr. Honeycutt This procedure was performed on Wednesday, November 27, 2024. My impressions and recommendations are as follows: Impressions : - No gross lesions in the entire esophagus. - Hiatal hernia. - No gross lesions in the entire stomach. - Erythematous duodenopathy. Biopsied. Recommendations : - Discharge patient to home. - Resume previous diet. - Continue present medications. - Await pathology results. My findings are described in the full procedure note, which is enclosed. If I can be of further assistance, please feel free to contact me at . Sincerely, Kiko Almanzar DO 11/27/2024 5:26:40 PM This report has been signed electronically. 11/27/241726 Date _ Kiko Almanzar DO Cosigner Signature: Date (if indicated) CC: Dr. Elgin Honeycutt MD; Kiko Almanzar DO ~ Date Dictated: 11/27/24 1643 Date Transcribed: Foxing Closer: RF Signed [facility]05-27-2025 Consult note [facility] Medical Records Department [address] [place] [address] Anesthesia Postop Eval I 11/27/241708 MR#: [id number] Acct: [id number] Name: JULI DAVIDSON Rep #:[id number] : 1960 64 From: Zia CRAWLEY PCP: Dr. Elgin Honeycutt MD Status:REG S DC Y Race: C Location: EN Anesthesia: Postop Eval I Current Vital Signs Temperature: 97.9 F Pulse Rate: 90 Blood Pressure: 116/67 Respiratory Rate: 16 Pulse Ox: 97 Assessment Airway patent: Yes Spontaneous unlabored respirations: Yes nausea: No Vomiting: No Anesthesia Complication: No Fluid Hydration Crystalloid volume administer (ml): 700 Total IV fluid infused: 700 Progress Note Anesthesia document: Postop Eval 1 completed: Yes 11/27/241708 SALESPERSON SHOES> Date _ Zia Martin SALESPERSON SHOES Cosigner Signature: Date CC: ~ Signed [facility]05-27-2025 History and physical note [facility] Medical Records Department [address] [place] [address] History & Physical Exam 11/27/24 1643 MR#: [id number] Acct: [id number] Name: JULI DAVIDSON Rep #:[id number] : 1960 64 From: [facility] Friend DO PCP: Dr. Elgin Honeycutt MD Status:REG S DE Location: [facility] - General General Date of Admission: 11/27/24 Date of Service: 11/27/24 Chief Complaint: Abdominal pain , weight loss and chronic pancreatitis HPI Narrative JULI DAVIDSON, is a 64 M who presents for the evaluation of abdominal pain weight loss and chronic pancreatitis. Pt referred to [facility] from his PCP Dr. Honeycutt for chronic pancreatitis. Pt has complaints of daily abd pain that radiates all over. It is not specifically in the epigastric region. He has nausea 2-3x per week but does not vomit. He has alternating bowels with constipation and loose stools. He notes having a colonoscopy many years ago. He continues to smoke and states I will stop when I . He denies any alcohol use. [facility] Medical History Wears glasses Wears dentures Alcohol use Liver spots Rheumatoid arthritis Restless legs Migraine headache No natural teeth Difficulty swallowing Difficulty chewing Heartburn Gastric reflux Cancer History of echocardiogram History of stress test History of heart attack Stroke/cerebrovascular accident COPD (chronic obstructive pulmonary disease) Smoker Rhabdomyolysis Hyponatremia Fall Debility T12 compression fracture Recurrent falls Thrombocytopenia Alcohol abuse Home Medications ?Medication ?Instructions ?Recorded ?Last Taken ?Type folic acid 1 mg tablet 1 mg PO DAILYCM 30 days #30 tabs 09/13/23 Unknown Rx nicotine 21 mg/24 hr daily 21 mg transdermal DAILY 30 days 09/13/23 Unknown Rx transdermal patch #30 ea thiamine HCl (vitamin B1) 100 mg 100 mg PO DAILY 30 da ys #30 tabs 09/13/23 Unknown Rx tablet (Vitamin B-1) cyclobenzaprine 10 mg tablet 10 mg PO TID PRN Muscle S pasm #15 07/02/24 Unknown Rx TABLETS gabapentin 800 mg tablet 800 mg PO TID 07/02/24 Unkno wn History lidocaine 5 % topical patch 1 patch topical DAILY 5 da ys #5 ea 07/02/24 Unknown Rx (Lidoderm) Allergy/AdvReac Type Severity Reaction Status Date / Time No Known Allergies Allergy Verified 11/27/24 14:15 Surgical History History of colonoscopy History of hand surgery History of lumpectomy of both breasts History of vasectomy History of cardiac catheterization Social History household members: none Smoking Status: Current every day smoker (Patient smoked today.) tobacco type: cigars quit status: not considering quitting alcohol intake: current Alcohol type: beer details: 12 beers daily. substance use type: does not use ROS Constitutional Constitutional: Denies fatigue, fever(s), poor appetite, weight gain or weight loss Gastrointestinal Gastrointestinal: Denies belching, bloating, change in bowel habits, change in stool character, chewing difficulty, coffee ground emesis, constipation, cramping, diarrhea, dyspepsia, dysphagia, earlysatiety, excessive flatus, fecalincontinence, heartburn, hematemesis, hematochezia, hemorrhoids, loose stools, melena, nausea, odynophagia, rectal bleeding, tenesmus, vomiting or weight changes Vital Signs Vital Signs Vital Signs: 11/27/24 14:34 11/27/24 14:35 11/27/24 15:49 Temperature 98.3 F 98.3 F Temperature Source Temporal Pulse Rate 93 93 Respiratory Rate 16 16 Respiratory Pattern Normal Blood Pressure 133/87 H 133/87 H Blood Pressure Mean 102 Blood Pressure Source Monitor Blood Pressure Position Semi-Fowlers Blood Pressure Location Left Arm Pulse Ox 95 95 Oxygen Delivery Method Room Air Room Air Weight Weight: 196 lb 12.8 oz Body Mass Index (BMI) 24.5 Physical Exam Const alert, oriented x3, no apparent distress and healthy appearing General Appearance: cooperative GI normal to inspection, nondistended, normoactive bowel sounds, soft to palpation,non-tender and non-distended Percussion: normal to percussion Rectal Exam: deferred Assessment & Plan Assessment/Plan (1) Chronic pancreatitis: (2) Severe malnutrition: PLAN: Assessment and Plan Assessment and Plan (1) Chronic pancreatitis: Status: Chronic Plan: This is a 64 yo male pt with PMHx of alcohol abuse with recent diagnosis of chronic pancreatitis. He is here today for evaluation. He has daily diffuse abd pain, alternating bowels and nausea. He notes having a colonoscopy many years ago. He will undergo EGD and colonoscopy to evaluation his GI tract. I will order stool testing for EPI. I provided pt with samples of creon to take before he eats. -Colonoscopy and EGD -Trial Creon -Stool test for EPI Orders: Orders Pancreatic Elastase, Fecal Today K86.1 - Other chronic pancreatitis 11/27/24 1644 Cosigner Signature (if applicable): CC: Dr. Elgin Honeycutt MD; Kiko Almanzar, ~ Signed [facility]05-27-2025 [facility] Medical Records Department [address] [place] [address] History Physical Exam 11/27/24 1643 MR#: [id number] Acct: [id number] Name: JULI DAVIDSON Rep #: [id number] : 1960 64 From: Kiko Almanzar DO PCP: Dr. Elgin Honeycutt MD Status:REG [facility] Location: EN HPI - General General Date of Admission: 11/27/24 Date of Service: 11/27/24 Chief Complaint: Abdominal pain , weight loss and chronic pancreatitis HPI Narrative JULI DAVIDSON, is a 64 M who presents for the evaluation of abdominal pain weight loss and chronic pancreatitis. Pt referred to [facility] from his PCP Dr. Honeycutt for chronic pancreatitis. Pt has complaints of daily abd pain that radiates all over. It is not specifically in the epigastric region. He has nausea 2-3x per week but does not vomit. He has alternating bowels with constipation and loose stools. He notes having a colonoscopy many years ago. He continues to smoke and states I will stop when I . He denies any alcohol use. [facility] Medical History Wears glasses Wears dentures Alcohol use Liver spots Rheumatoid arthritis Restless legs Migraine headache No natural teeth Difficulty swallowing Difficulty chewing Heartburn Gastric reflux Cancer History of echocardiogram History of stress test History of heart attack Stroke/cerebrovascular accident COPD (chronic obstructive pulmonary disease) Smoker Rhabdomyolysis Hyponatremia Fall Debility T12 compression fracture Recurrent falls Thrombocytopenia Alcohol abuse Home Medications ???Medication ???Instructions ???Recorded ???Last Taken ???Type folic acid 1 mg tablet 1 mg PO DAILYCM 30 days #30 tabs 0 09/13/23 Unknown Rx nicotine 21 mg/24 hr daily 21 mg transdermal DAILY 30 days Unknown Rx transdermal patch #30 ea thiamine HCl (vitamin B1) 100 mg 100 mg PO DAILY 30 days #30 tabs 0 09/13/23 Unknown Rx tablet (Vitamin B-1) cyclobenzaprine 10 mg tablet 10 mg PO TID PRN Muscle Spasm #15 07/02/24 Unknown Rx TABLETS gabapentin 800 mg tablet 800 mg PO TID 07/02/24 Unknown His tory lidocaine 5 % topical patch 1 patch topical DAILY 5 days #5 ea 07/02/24 Unknown Rx (Lidoderm) Allergy/AdvReac Type Severity Reaction Status Date / Time No Known Allergies Allergy Verified 11/27/24 14:15 Surgical History History of colonoscopy History of hand surgery History of lumpectomy of both breasts History of vasectomy History of cardiac catheterization Social History household members: none Smoking Status: Current every day smoker (Patient smoked today.) tobacco type: cigars quit status: not considering quitting alcohol intake: current Alcohol type: beer details: 12 beers daily. substance use type: does not use ROS Constitutional Constitutional: Denies fatigue, fever(s), poor appetite, weight gain or weight loss Gastrointestinal Gastrointestinal: Denies belching, bloating, change in bowel habits, change in stool character, chewing difficulty, coffee ground emesis, constipation, cramping, diarrhea, dyspepsia, dysphagia, early satiety, excessive flatus, fecal incontinence, heartburn, hematemesis, hematochezia, hemorrhoids, loose stools, melena, nausea, odynophagia, rectal bleeding, tenesmus, vomiting or weight changes Vital Signs Vital Signs Vital Signs: 11/27/24 14:34 11/27/24 14:35 11/27/24 15:49 Temperature 98.3 F 98.3 F Temperature Source Temporal Pulse Rate 93 93 Respiratory Rate 16 16 Respiratory Pattern Normal Blood Pressure 133/87 H 133/87 H Blood Pressure Mean 102 Blood Pressure Source Monitor Blood Pressure Position Semi-Fowlers Blood Pressure Location Left Arm Pulse Ox 95 95 Oxygen Delivery Method Room Air Room Air Weight Weight: 196 lb 12.8 oz Body Mass Index (BMI) 24.5 Physical Exam Const alert, oriented x3, no apparent distress and healthy appearing General Appearance: cooperative GI normal to inspection, nondistended, normoactive bowel sounds, soft to palpation, non-tender and non- distended Percussion: normal to percussion Rectal Exam: deferred Assessment Plan Assessment/Plan (1) Chronic pancreatitis: (2) Severe malnutrition: PLAN: Assessment and Plan Assessment and Plan (1) Chronic pancreatitis: Status: Chronic Plan: This is a 64 yo male pt with PMHx of alcohol abuse with recent diagnosis of chronic pancreatitis. He is here today for evaluation. He has daily diffuse abd pain, alternating bowels and nausea. He notes having a colonoscopy many years ago. He will undergo EGD and colonoscopy to evaluation his GI tract. I will order stool testing for EPI. I provided pt with samples of creon to (more content not included)...[facility]05-27-2025 Evaluation note* Diagnosis Onset Date Resolution Status Admit Date Severe malnutrition acute November 022024 1:59pm Chronic pancreatitis chronic November 27, 2024 1:59pm [facility] Work Phone: 1(404) 342-719405-27-2025 Consult note [facility] Medical Records Department [address] [place] [address] Pre-Anesthesia Evaluation 11/27/24 1527 MR#: [id number] Acct: [id number] Name: JULI DAVIDSON Rep #:[id number] : 1960 64 From: Andrez Faith MD PCP: Dr. Elgin Honeycutt MD Status:REG S DC Y Race: C Location: EN ADDENDUM by Dr. Andrez Faith MD on 11/27/24 at 1552 Addendum Patient does have expiratory wheeze and rhonchi on physical exam. Will give nuzhat nebulizer breathing treatment preop. 11/27/24 1552 keily ADHIKARI> Date _ Andrez Faith MD cc: ~* Signed ASA Classification* ASA Classification ASA Classification: 4 Assessment & Plan Anesthesia* Anesthesia Assessment Anesthesia Assessment: Discussed sedation and/or anesthesia options, risks, benefits, and alternatives with patient/parents/legal guardian/POA. Questions invited. The patient/parents/legal guardian/POA seems to understand and agrees to proceedwith anesthesia plan. Reviewed the physical assessment, medical history, allergy history and patient home medications list prior to surgery/procedure/anesthetic and documented any changes. Performed airway and anesthesia risk assessments. Anesthesia Type Anesthesia Type: MAC History Source History Obtained from:: Patient and Chart Anesthesia Focused Assessment* Temperature: 98.3 F Pulse Rate: 93 Blood Pressure: 133/87 Respiratory Rate: 16 Pulse Ox: 95 Oxygen Delivery Method: Room Air Airway Assessment Mouth opens: >3 cm Mallampati Score: I Teeth Condition: Dentures (Patient has full upper and lower dentures. They are out.) Neck Range of motion (ROM): Full ROM Focused Labs Anesthesia Preop lab: CBC WBC 6.0 K/mm3 (4.4-11.0) 09/20/24 09:10 09/20/24 RBC 5.27 M/mm3 (4.6-6.2) 09/20/24 09:10 09/20/24 Hgb 16.9 g/dL (13.0-16.5) H 09/20/24 09:10 5 Hct 50.2 % (40-54) 09/20/24 09:10 09/20/24 Plt Count 254 K/mm3 (150-450) 09/20/24 09:10 09/20/24 CHEMISTRY Potassium 4.3 mmol/L (3.3-5.1) 09/20/24 09:10 09/20/24 Sodium 134 mmol/L (133-145) 09/20/24 09:10 09/20/24 Magnesium 2.2 mg/dL (1.6-2.6) 08/27/24 14:28 08/27/24 Phosphorus 2.3 mg/dL (2.5-4.9) L 08/27/24 14:28 08/27/24 BUN 7 mg/dL (4-19) 09/20/24 09:10 09/20/24 Creatinine 0.75 mg/dL (0.70-1.20) 09/20/24 09:10 09/20/24 Glucose 116 mg/dL (70-99) H 09/20/24 09:10 09/20/24 TSH 1.970 uIU/mL (0.300-4.200) 09/20/24 09:10 03/ COAG PT 13.2 SECONDS (11.7-14.9) 10/24/23 09:17 Pre-Assessment Diagnosis/Proposed Procedure Planned Operative Procedure(s): egd Anesthesia History Anesthesia History - regulatory affairs spec: Anesthesia History - regulatory affairs spec Hx Hospitalization No 11/27/24 14:17 Any Problems With Anesthesia No 11/27/24 14:17 Cholinesterase deficiency No 11/27/24 14:17 You/Your Family Experience No 11/27/24 14:17 fever (hyperthermia) with Relationship Recent Exposure to Contagious No 11/27/24 14:34 Disease Does patient have nerve No 11/27/24 14:17 stimulator Patient instructed to have device shut off --Does patient have Pacemaker No 11/27/24 14:35 or ICD? When Was Last Pacemaker Check QUESTION #4 FULL TEXT: You/Your Family Experience fever (hyperthermia) with Anesthesia Last Oral Intake Last Oral intake: Last Oral Intake NPO since 00:00 11/27/24 14:35 Meds taken in AM with sips of No 11/27/24 14:35 water? Meds patient instructed to take am of surgery PONV PONV - regulatory affairs spec: PONV - regulatory affairs spec Female No 11/27/24 14:17 HX of Motion Sickness No 11/27/24 14:17 HX of N/V After Surgery No 11/27/24 14:17 Non-Smoker No 11/27/24 14:17 Duration of Surgery greater No 11/27/24 14:17 than 60 minutes Number of Risk Factors PONV Score Height & Weight Height & Weight: Anesthesia: Height & Weight Height 6 ft 3 in 11/27/24 14:35 Weight: 89.267 kg 11/27/24 14:35 Body Mass Index (BMI) 24.5 11/27/24 14:35 Respiratory Assessment Respiratory Assessment - regulatory affairs spec: Respiratory Tract Infection Hx - regulatory affairs spec Hx Respiratory Tract Infection No: chronic cough from COPD 11/27/24 14:17 STOP Sleep Apnea STOP Sleep Apnea - regulatory affairs spec: STOP Sleep Apnea - regulatory affairs spec Hx Hypertension No 11/27/24 14:17 Hx Sleep Apnea No 11/27/24 14:17 CPAP BIPAP Do you snore loudly (louder No 11/27/24 14:17 than talking or can be heard Do you often feel tired/ No 11/27/24 14:17 fatigued/ sleepy during daytime? Has anyone observed you stop No 11/27/24 14:17 breathing during sleep? STOP Results Negative 11/27/24 14:17 QUESTION #5 FULL TEXT : Do you snore loudly (louder than talking or can be heard through closeddoors)? 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 Specify any problems Hx of Preganancy in last 3 N/A 11/27/24 14:17 Months Nurse Filling Out Transfusion NBUCHER 11/27/24 14:17 & Questions: Date: 11/27/24 11/27/24 14:17 Time: 14:20 11/27/24 14:17 Patient unable to answer at this time (ie. confused, unrespo /Reproduction History /Reproductive History - regulatory affairs spec: /Reproductive Hx- regulatory affairs spec Hx Now No 11/27/24 14:17 Gestational Age (in weeks): EDC: Hx Hx Para Hx Section SAB No 11/27/24 14:17 Active Medications Active Medications: Current Medications Generic Name Dose Route Start Last Admin Trade Name Freq PRN Reason Stop Dose Admin Lactated Ringer's 1,000 mls @ 15 mls/hr 11/27/24 14:15 11/27/24 14:15 IV 15 mls/hr .Q48H ALMA ROSA Administration PFSH Medical History Wears glasses Wears dentures Alcohol use Liver spots Rheumatoid arthritis Restless legs Migraine headache No natural teeth Difficulty swallowing Difficulty chewing Heartburn Gastric reflux Cancer History of echocardiogram History of stress test History of heart attack Stroke/cerebrovascular accident COPD (chronic obstructive pulmonary disease) Smoker Rhabdomyolysis Hyponatremia Fall Debility T12 compression fracture Recurrent falls Thrombocytopenia Alcohol abuse Home Medications ?Medication ?Instructions ?Recorded ?Last Taken ?Type folic acid 1 mg tablet 1 mg PO DAILYCM 30 days #30 tabs 09/13/23 Unknown Rx nicotine 21 mg/24 hr daily 21 mg transdermal DAILY 30 days 09/13/23 Unknown Rx transdermal patch #30 ea thiamine HCl (vitamin B1) 100 mg 100 mg PO DAILY 30 da ys #30 tabs 09/13/23 Unknown Rx tablet (Vitamin B-1) cyclobenzaprine 10 mg tablet 10 mg PO TID PRN Muscle S pasm #15 07/02/24 Unknown Rx TABLETS gabapentin 800 mg tablet 800 mg PO TID 07/02/24 Unkno wn History lidocaine 5 % topical patch 1 patch topical DAILY 5 da ys #5 ea 07/02/24 Unknown Rx (Lidoderm) Allergy/AdvReac Type Severity Reaction Status Date / Time No Known Allergies Allergy Verified 11/27/24 14:15 Surgical History (Updated 11/27/24 @ 14:33 by Jihan Amanda) History of colonoscopy History of hand surgery History of lumpectomy of both breasts History of vasectomy History of cardiac catheterization Social History (Updated 09/21/24 @ 12:48 by Karolina Barber LPN) household members: none Smoking Status: Current every day smoker tobacco type: cigars quit status: not considering quitting alcohol intake: current Alcohol type: beer details: 12 beers daily. substance use type: does not use Review of Systems (Anesthesia) ROS Narrative System reviewed and no additional complaints, except as documented. 11/27/24 1549 keily ADHIKARI> Date _ Andrez Faith MD Cosigner Signature: Date CC: ~ Signed [facility]05-06-2025 Radiology Diagnostic study note [facility] Imaging Services [address] [place] [address] Upper GI/w Small Bowel MR#: [id number] Acct: [id number] Name: JULI DAVIDSON Rep #: [id number] : 1960 M 64 From: Jose Sidhu MD PCP: Dr. Elgin Honeycutt MD Status: [facility]EPHANIE [facility]ILA Study:Upper GI/w Small Bowel Date of Exam: 11/06/24 Exam# [id number] Ordering Dr: Elgin Honeycutt MD EXAM: Double contrast upper GI series and small-bowel series (combined dictation). CLINICAL HISTORY: Abdominal pain. Gastric ulcer concern. COMPARISON: None. TECHNIQUE: Double contrast upper GI series and small-bowel series (combined dictation). FINDINGS: The upper GI series demonstrates recurrent esophageal spasm of the distal esophagus. No area of persistent narrowing was noted. No mucosal abnormality is seen. No evidence of narrowing of the esophagogastric junction is noted. During the time of imaging, gastroesophageal reflux was not elicited. The stomach demonstrates no significant gastric mucosal thickening. No mass or ulcer is identified.Evaluation is somewhat limited suboptimal gastric mucosal contrast. No duodenal abnormality is noted. The small bowel series shows very rapid passage of contrast into the colon, withcontrast in the colon by the 15 minute film. Normal mucosa of both jejunum and ileum is seen. No abnormality is noted of theileocecal valve. RAD/Upper GI/w Small Bowel IMPRESSION: 1. Recurrent distal esophageal spasm. 2. Very rapid passage of contrast from the stomach through to the colon. 3. Normal-appearing jejunal and ileal mucosa. Reading Location: [place] [address] CC: Dr. Elgin Honeycutt MD ~ Foxing Closer: Signed [facility]03-27-2025 Radiology Diagnostic study note [facility] Imaging Services [address] [place] [address] Thoracic Spine 3 Views MR#: [id number] Acct: [id number] Name: JULI DAVIDSON Rep #: [id number] : 1960 M 64 From: Steven Kong MD PCP: Dr. Elgin Honeycutt MD Status: REG [facility] Study:Thoracic Spine 3 Views Date of Exam: 09/26/24 Exam# [id number] Ordering Dr: Quirino Perry MD EXAM: X-ray thoracic spine three views CLINICAL HISTORY: Concern for compression fracture COMPARISON: PA and lateral views of the chest 03/28/2024 TECHNIQUE: Thoracic spine AP, lateral and swimmer's view, 3 total images FINDINGS: Similar appearance of anterior wedge T12 compression fracture deformity status post vertebroplasty.T2 through T11 disc spaces appear within limits without evidence of fracture or malalignment identified. T1 is not visualized on the lateral view and not well seen on the swimmer's view. Otherwise no other compression deformity identified. RAD/Thoracic Spine 3 Views IMPRESSION: Similar appearance of anterior wedge T12 compression fracture deformity status post vertebroplasty.T2 through T11 disc spaces appear within limits without evidence of fracture or malalignment identified. T1 is not visualized on the lateral view and not well seen on the swimmer's view. Otherwise no other compression deformity identified. Reading Location: [facility] CC: Dr. Quirino Perry MD; Dr. Elgin Honeycutt MD ~ Foxing Closer: Signed [facility]03-26-2025 Radiology Diagnostic study note [facility] Imaging Services [address] [place] [address] Lumbar Spine 2 or 3 Views MR#: [id number] Acct: [id number] Name: JULI DAVIDSON Rep #: [id number] : 1960 M 64 From: Steven Kong MD PCP: Dr. Elgin Honeycutt MD Status: [facility] Study:Lumbar Spine 2 or 3 Views Date of Exam: 09/26/24 Exam# [id number] Ordering Dr: Quirino Perry MD EXAM: Lumbar spine 2 or three views CLINICAL HISTORY: Concern for compression fracture, chronic pain COMPARISON: Thoracic spine CT 08/29/2023 TECHNIQUE: AP and lateral views lumbosacral spine, 2 images FINDINGS: 5 [id number] lumbar vertebral type bodies identified. Overlying bowel gas on the AP view. No acute compression fracture or malalignment. The disc spaces appear within limits. Previously noted compression fracture deformityof T12 again seen now with vertebroplasty present. Aortoiliac atherosclerotic calcifications. Numerous calcifications within the area of the head and neck of the pancreas noted. RAD/Lumbar Spine 2 or 3 Views IMPRESSION: 5 [id number] lumbar vertebral type bodies identified. Overlying bowel gas on the AP view. No acute compression fracture or malalignment. The disc spaces appear within limits. Previously noted compression fracture deformityof T12 again seen now with vertebroplasty present. Reading Location: [id number] CC: Dr. Quirino Perry MD; Dr. Elgin Honeycutt MD ~ Foxing Closer: Signed [facility]03-21-2025 Evaluation note* Diagnosis Onset Date Resolution Status Admit Date Chronic pancreatitis chronic Tobin h 2024 12:28pm [facility] Work Phone: 1(413) 883-545103-21-2025 Evaluation note* Diagnosis Onset Date Resolution Status Admit Date Chronic pancreatitis chronic Tobin h 2024 12:28pm Severe malnutrition acute November 022024 1:59pm Chronic pancreatitis chronic November 27, 2024 1:59pm [facility] Work Phone: 1(257) 103-462803-14-2024 Hospital Discharge instructions Additional Instructions Discharge home alone 09/15/2023 with no needs.[facility] Work Phone: 1(409) 288-184303-12-2024 Discharge summary Author Elgin Honeycutt [facility] September 13, 2023 7:56am Note Date/Time September 13, 2023 7:5 3am [facility] Medical Records Department [address] [place] [address] Discharge Summary 09/13/23 0750 MR#: [id number] Acct: [id number] Name: JULI DAVIDSON Rep #:[id number] : 1960 63 From: Elgin Honeycutt MD PCP: Care Physician,No Primary Status :ADM IN Location: [place] [address] Providers Date of Admission: 09/05/23 Primary Care Physician: No Primary Care Phys Reason For Visit: DEBILITY WITH MULTIPLE FALLS Diagnosis Discharge Diagnosis (1) Debility: Status: Acute Code(s): R53.81 - Other malaise (2) Fall: Status: Acute Code(s): W19.XXXA - Unspecified fall, initial encounter (3) T12 compression fracture: Status: Inactive Code(s): S22.080A - Wedge compression fracture of T11-T12 vertebra, initial encounter forclosed fracture (4) Hyponatremia: Status: Acute Code(s): E87.1 - Hypo-osmolality and hyponatremia (5) Rhabdomyolysis: Status: Acute Code(s): M62.82 - Rhabdomyolysis (6) Alcohol abuse: Status: Inactive Code(s): F10.10 - Alcohol abuse, uncomplicated Plan 63 year old female with below past medical history hospitalized for fall, T12 compression fracture, rhabdomyolysis, alcohol withdrawal, hyponatremia, admittedto TCU debility, here for rehabilitation, strengthening, prior to discharge homealone. * Debility - PT/OT. * Pain - Tylenol 1000mg q6 prn pain (1-3), Tramadol 50mg q6 prn pain (4-5), Oxycodone 5mg q4 prn pain (6-10). * Bowel - senna/colace 1 tablet bid, Magnesium citrate 300ml daily prn. * Adult immunization - Administer pneumonia vaccine, covid vaccine, flu vaccine as appropriate. * DVT prophylaxis - Lovenox 40mg sc daily. * Nutrition - Ensure Plus 120ml tidcm. * Alcohol Abuse - Folic acid 1mg daily, Thiamine 100mg daily, MVI daily. * Tobacco Abuse - Nicotine 21mg td daily. * T12 compression fracture - Consider kyphoplasty. Medications at Discharge Home Medications folic acid 1 mg tablet 1 mg PO DAILYCM 30 days #30 tabs 09/13/23 gabapentin 400 mg capsule 800 mg (2 x 400 mg) PO TIDCM 30 days #180 caps 09/13/23 nicotine 21 mg/24 hr daily transdermal patch 21 mg transdermal DAILY 30 days #30ea 09/13/23 thiamine HCl (vitamin B1) 100 mg tablet (Vitamin B-1) 100 mg PO DAILY 30 days #30 tabs 09/13/23 Hospital Course Operations None Procedures None Summary of Care Provided Minutes Spent on Discharge: 35 Hospital Course: 63 year old female with below past medical history hospitalized for fall, T12 compression fracture, rhabdomyolysis, alcohol withdrawal, hyponatremia, admittedto TCU debility, here for rehabilitation, strengthening, prior to discharge homealone. Discharge home alone 09/15/2023 with no needs. Physical Exam Const alert General Appearance: cooperative HEENT normocephalic Eyes PERRL and EOMs intact bilaterally Neck supple, no JVD and no carotid bruits Resp normal respiratory effort, normal air movement and clear to auscultation bilaterally Cardio regular rate and regular rhythm GI normal to inspection, nondistended, normoactive bowel sounds, non-tender and non-distended Extremity normal capillary refill General Extremity: Negative for edema Skin no rashes or lesions noted General Skin Exam: no breakdown Psych affect normal Appearance: appropriate Medical Records Data Medical Nutrition Assessment Dietitian: Malnutrition Criteria Met Start: 09/06/23 15:22 Freq: Status: Active Protocol: Document 09/06/23 15:22 (Rec: 09/06/23 15:22 [id number]) Nutrition Malnutrition Evidence of Malnutrition Exists Yes Malnutrition (severe): Chronic Evidenced By Suboptimal Energy Intake ( Severe),Weight Loss (Severe), Physical Changes (Severe) Clinical Problem Chronic Disease or Condition Related Malnutrition Etiology chronic, severe malnutrition related to inadequate energy intake w/ history of alcohol abuse Signs/Symptoms as evidenced by unintentional ~19% wt loss < 1 year, estimated PO intake meeting < 75% of estimated energy needs > 3 months, severe muscle wasting/fat loss per physical exam in orbital, clavicle, acromion, and temporal areas Status Active Problem Recommendation Dietitian Recommendations/Changes continue regular diet- texture /consistency per [employer]; magic cup milkshake BID for additional nutrition if consumed. Weight / BMI Weight Weight: 71.412 kg Body Mass Index (BMI) 19.1 ABG / Lab / Microbiology Data 09/13/23 05:20 09/13/23 05:20 Laboratory: Laboratory Results - last 24 hr 09/13/23 05:20: WBC 6.8, RBC 3.30 L, Hgb 10.7 L, Hct 33.1 L, MCV 100.3 H, MCH 32.4 H, MCHC 32.3, RDW Std Deviation 51.8 H, RDW Coeff of Yousuf 14.0, Plt Count 489 H, MPV 9.4, Immature Gran % (Auto) 1.200 H, Neut % (Auto) 54.5, Lymph % (Auto) 28.4, [place] % (Auto) 11.6 H, Eos % (Auto) 2.1, Baso % (Auto) 2.2 H, Absolute Neuts (auto) 3.7, Absolute Lymphs (auto) 1.94, Nucleated RBC % 0, Sodium 139, Potassium 4.1, Chloride 108 H, Carbon Dioxide 28.0, Anion Gap 3 L, BUN 5 L, Creatinine 0.61 L, Estim Creat Clear Calc 92.98, Est GFR (MDRD) Af [id number], Est GFR (MDRD) Non-Af 142, BUN/Creatinine Ratio 8.2 L, Glucose 92, Calcium 8.6 D/C Instructions Discharge Diet: No restrictions Discharge Activity: Return to Normal Activity and May Shower Weight Bearing Status: Weight bearing as tolerated Call your doctor if you observe: Fever of 101 or Higher, Inability to urinate, Inability to have a bowel movement, Shortness of breath, Dizziness, Fainting spells, Swelling in the ankles, Chest pain and Uncontrolled pain Additional Instructions: Discharge home alone 09/15/2023 with no needs. Please Follow Up With: Elgin Honeycutt Chi, MD When: 09/15/2023. Meaningful Use Info Meaningful Use Diagnoses (Choose all that apply): None applicable Discharge Plan Admission Admit Date/Time: 09/05/23 18:30 Primary Reason for Your Visit: Debility. Attending Provider: Elgin Honeycutt Chi Primary Care Provider: Care Physician,No Primary Instructions Additional Instructions / Restrictions: Discharge home alone 09/15/2023 with no needs. Discharge Orders/Prescriptions Prescriptions: New gabapentin 400 mg Capsule 800 mg PO TIDCM 30 Days Qty: 180 0RF thiamine HCl (vitamin B1) [Vitamin B-1] 100 mg Tablet 100 mg PO DAILY 30 Days Qty: 30 0RF nicotine 21 mg/24 hr Patch 24 Hour 21 mg transdermal DAILY 30 Days Qty: 30 0RF folic acid 1 mg Tablet 1 mg PO DAILYCM 30 Days Qty: 30 0RF Discontinued multivitamin Tablet 1 tab PO BREAKFAST Qty: 0 0RF sennosides [senna] 8.6 mg Tablet 8.6 mg PO QHS PRN (Reason: Constipation) Qty: 0 0RF nicotine 21 mg/24 hr Patch 24 Hour 21 mg transdermal DAILY Qty: 0 0RF Ensure Plus High Protein 0.08 gram-1.5 kcal/mL Liquid 120 ml PO TIDCM Qty: 0 0RF thiamine HCl (vitamin B1) 100 mg tablet 100 mg PO DAILY Qty: 30 3RF folic acid 1 mg tablet 1 mg PO DAILY Qty: 30 3RF acetaminophen 500 mg Tablet 500 mg PO Q4H PRN PRN (Reason: Pain 1-10 or Temp > 100.4 F) Qty: 0 0RF Referrals / Follow Up: Elgin Honeycutt Chi, MD [Med Staff - Active Staff] - 09/15/23 (Schedule appointment on 09/15/2023.) Disposition Disposition (needs filled in before D/C Order can be placed): Home, Self Care 09/13/23 0119 <Electronically signed by Elgin Honeycutt MD> Cosigner Signature (if applicable): CC: Dr. Elgin Honeycutt MD; No Primary Care Physician~ Signed [facility] Work Phone: 1(132) 659-186403-08-2024 History and physical note Author [facility] September 09, 2023 1:12pm Note Date/Time September 05, 2023 9:38 pm [facility] Medical Records Department [address] [place] [address] History & Physical Exam 09/05/232132 MR#: [id number] Acct: [id number] Name: JULI DAVIDSON Rep #:[id number] : 1960 63 From: Elgin Honeycutt MD PCP: Care Physician,No Primary Status :ADM IN Location: [facility]20-1 HPI - General General Date of Admission: 09/05/23 Date of Service: 09/06/23 Chief Complaint: Here for rehabilitation. HPI Narrative 08/29/2023 JULI DAVIDSON, is a 63 Male who presents to [facility] ED with fall. Fell, could not get up, on floor for hours, crawled to get help. Flu 3 weeks ago,. 12 beers per day, urinates in bucket to avoid moving. Low back pain. CT showed T12 compression fracture. IV fluids, pain medication. 08/29/2023 Admit to [facility]. Alcohol withdrawal protocol. PT/OT for falls. Consider kyphoplasty for T12 compression fracture. Hyponatremia 08/05 alcoholism. IV fluids for rhabdomyolysis. 08/30/2023 Improved, thoracic back pain. Withdrawal improved, urine tox negative. Well hydrated. 08/31/2023 Shaking, off balance. Ativan PRN shaking, Declined 180 alcohol counseling. Declined SNF. 09/01/2023 Wants to go home. No thoracic pain. 09/02/2023 Now willing to go to TCU. 09/03/2023 Tremor with movement, pre-CERT for TCU. 09/04/2023 Feeling fine, await pre-CERT for TCU. 09/05/2023 Admit to TCU with debility, here for rehabilitation, strengthening, prior to discharge home alone. [facility] Medical History (Updated 09/05/23 @ 21:[address] Elgin Honeycutt MD) Debility Fall Hyponatremia Rhabdomyolysis Home Medications acetaminophen 500 mg tablet 500 mg PO Q4H PRN PRN Pain 1-10 or Temp > 100.4 F #0tabs 09/05/23 [Rx Last Taken 09/05/23] folic acid 1 mg tablet 1 mg PO DAILY supplement #30 tabs 09/05/23 [Rx Last Taken 09/05/23] food supplemt, lactose-reduced 0.08 gram-1.5 kcal/mL oral liquid (Ensure Plus High Protein) 120 ml PO TIDCM supplement #0 mL 09/05/23 [Rx Last Taken 09/05/23] multivitamin 1 tab PO BREAKFAST supplement #0 tabs 09/05/23 [Rx Last Taken 09/05/23] nicotine 21 mg/24 hr daily transdermal patch 21 mg transdermal DAILY smoking cessation #0 ea 09/05/23 [Rx Last Taken 09/05/23] sennosides 8.6 mg tablet (senna) 8.6 mg PO QHS PRN Constipation #0 tabs 09/05/23[Rx Last Taken 09/05/23] thiamine HCl (vitamin B1) 100 mg tablet 100 mg PO DAILY supplement #30 tabs 09/05/23 [Rx Last Taken 09/05/23] Allergy/AdvReac Type Severity Reaction Status Date / Time No Known Allergies Allergy Verified 08/29/23 14:24 Social History (Updated 09/05/23 @ 21:[address] Elgin Honeycutt MD) household members: none Smoking Status: Current every day smoker tobacco type: cigars alcohol intake: current Alcohol type: beer details: 12 beers daily. substance use type: does not use ROS Constitutional Constitutional: Reports fatigue and weakness; Denies chills, fever(s) or weight gain ENT HEENT: Denies headache(s), nasal congestion or nasal discharge Cardiovascular Cardiovascular: Denies chest pain or palpitations Respiratory/Chest Respiratory/Chest: Denies cough, excessive phlegm production or shortness of breath with exertion Gastrointestinal Gastrointestinal: Denies abdominal pain, nausea or vomiting Genitourinary Genitourinary: Denies dysuria Musculoskeletal Musculoskeletal: Denies joint pain or joint swelling Integumentary Integumentary: Denies rash or wounds Neurologic Neurologic: Denies focal weakness, numbness or tingling Psychiatric Psychiatric: Denies anxiety, auditory hallucinations, depression, homicidal ideation or suicidal ideation Physical Exam Const alert General Appearance: cooperative HEENT normocephalic Eyes PERRL and EOMs intact bilaterally Neck supple, no JVD and no carotid bruits Resp normal respiratory effort, normal air movement and clear to auscultation bilaterally Cardio regular rate and regular rhythm GI normal to inspection, nondistended, normoactive bowel sounds, non-tender and non-distended Extremity normal capillary refill General Extremity: Negative for edema Skin no rashes or lesions noted General Skin Exam: no breakdown Psych affect normal Appearance: appropriate Results Lab / Micro Data 09/06/23 05:40 09/06/23 05:40 Assessment & Plan Assessment/Plan (1) Debility: (2) Fall: (3) T12 compression fracture: (4) Hyponatremia: (5) Rhabdomyolysis: (6) Alcohol abuse: PLAN: Plan 63 year old female with below past medical history hospitalized for fall, T12 compression fracture, rhabdomyolysis, alcohol withdrawal, hyponatremia, admittedto TCU debility, here for rehabilitation, strengthening, prior to discharge homealone. * Debility - PT/OT. * Pain - Tylenol 1000mg q6 prn pain (1-3), Tramadol 50mg q6 prn pain (4-5), Oxycodone 5mg q4 prn pain (6-10). * Bowel - senna/colace 1 tablet bid, Magnesium citrate 300ml daily prn. * Adult immunization - Administer pneumonia vaccine, covid vaccine, flu vaccine as appropriate. * DVT prophylaxis - Lovenox 40mg sc daily. * Nutrition - Ensure Plus 120ml tidcm. * Alcohol Abuse - Folic acid 1mg daily, Thiamine 100mg daily, MVI daily. * Tobacco Abuse - Nicotine 21mg td daily. * T12 compression fracture - Consider kyphoplasty. 09/06/23 07 <Electronically signed by Elgin Honeycutt MD> Cosigner Signature (if applicable): CC: Dr. Elgin Honeycutt MD; No Primary Care Physician~ Signed ADDENDUM by Dr. Elgin Honeycutt MD on 09/06/23 at 0748 Addendum Thrush - Nystatin 500,000 4x/day x 10 days. Insomnia - Doxepin 10mg qhs. 09/06/23 0748<Electronically signed by Elgin Honeycutt MD> Cosigner Signature (if applicable): cc: Dr. Elgin Honeycutt MD; No Primary Care Physician ~* Signed ADDENDUM by Dr. Elgin Honeycutt MD on 09/06/23 at 1717 Addendum Alcoholic polyneuropathy - Gabapentin 100mg tid. 09/06/23 171<Electronically signed by Elgin Honeycutt MD> Cosigner Signature (if applicable): cc: Dr. Elgin Honeycutt MD; No Primary Care Physician ~* Signed ADDENDUM by Dr. Elgin Honeycutt MD on 09/09/23 at 1312 Addendum Cluster headache - Maxalt 10mg po x 1 prn. 09/09/23 1312<Electronically signed by Elgin Honeycutt MD> Cosigner Signature (if applicable): cc: Dr. Elgin Honeycutt MD; No Primary Care Physician ~* Signed [facility] Work Phone: 1(884) 262-403303-05-2024 Progress note Author Ivonne Jimenez [facility] September 06, 2023 2:54pm Note Date/Time September 06, 2023 2:45 pm [facility] Medical Records Department [facility] [place] [address] Progress Note - Pharmacy 09/06/23 1436 MR#: [id number] Acct: [id number] Name: JULI DAVIDSON Rep #:[id number] : 1960 63 From: Ivonne Jimenez PCP: Care Physician,No Primary Status :ADM IN Location: TCU [facility] TCU RX Drug Regimen Review Subjective/Objective Subjective/Objective: Subjective: 63 YOM admitted to TCU s/p hospitalization due to a fall which resulted in a t12 compression fracture, currently declining surgical intervention. Hospitalization also complicated by past medical history significant for alcoholism, hyponatremia secondary to alcoholism. Patient admitted to TCU 09/05/23 for strengthening and rehabilitation prior to discharge home where he resides alone. Objective: Allergies No Known Allergies Allergy (Verified 08/29/23 14:24) Current Medications Generic Name Dose Route Start Last Admin Trade Name Freq PRN Reason Stop Dose Admin Acetaminophen 1,000 mg 09/05/23 21:33 Acetaminophen 500 Mg Tablet PO Q6H PRN PRN Pain Score 1-3 Calamine/Phenol 1 applic 09/06/23 10:00 09/06/23 09:56 Menthol/Lanolin/Calamine/Znox 113 Gm Tube TOPICAL 1 applic BID ALMA ROSA Administration Protocol Doxepin HCl 10 mg 09/06/23 22:00 Doxepin Hydrochloride 10 Mg Capsule PO QHS ALMA ROSA Enoxaparin Sodium 40 mg 09/06/23 06:00 09/06/23 05:52 Enoxaparin 40 Mg/0.4 Ml Syringe SC 40 mg DAILY@0600 ALMA ROSA Administration Folic Acid 1 mg 09/06/23 08:00 09/06/23 09:55 Folic Acid 1 Mg Tablet PO 1 mg DAILYCM ALMA ROSA Administration Magnesium Citrate 300 ml 09/05/23 21:52 Magnesium Citrate 300 Ml PO DAILY PRN Constipation Multivitamins 1 tablet 09/06/23 08:00 09/06/23 09:55 Multivitamins,Therapeutic Tablet PO 1 tablet BREAKFAST ALMA ROSA Administration Nicotine 21 mg 09/06/23 10:00 09/06/23 09:58 Nicotine 21 Mg Patch TD 21 mg DAILY ALMA ROSA Administration Nutritional Formula (Lactose Free) 120 ml 09/06/23 07:45 09/06/23 14:13 Ensure Plus High Protein 120 Ml Liquid PO Not Given TIDCM [facility] Nystatin 500,000 unit 09/06/23 12:00 09/06/23 11:13 Nystatin 500,000 Unit/5 Ml Udc PO 09/16/23 12:01 500,000 unit 4X/DAY ALMA ROSA Administration Oxycodone HCl 5 mg 09/05/23 21:32 09/06/23 10:17 Oxycodone 5 Mg Tablet PO 5 mg Q4H PRN PRN Administration Pain Score 6-10 Senna/Docusate Sodium 1 tablet 09/05/23 22:00 09/06/23 09:59 Senna/Docusate Sodium 1 Tablet PO 1 tablet BID ALMA ROSA Administration Thiamine HCl 100 mg 09/06/23 10:00 09/06/23 10:00 Thiamine Hydrochloride 100 Mg Tablet PO 100 mg DAILY ALMA ROSA Administration Tramadol HCl 50 mg 09/05/23 21:33 Tramadol 50 Mg Tablet PO Q6H PRN PRN Pain Score 4-5 Tuberculin PPD 0.1 ml 09/13/23 10:00 Tuberculin,Purif.Prot.Deriv. 50 Tu/Ml Vial ID 09/13/23 10:01 X1 ONE Problem List (Updated 09/05/23 @ 21:[address] Elgin Honeycutt MD) Rhabdomyolysis (Acute) Hyponatremia (Acute) Fall (Acute) Debility (Acute) Alcohol abuse (Acute) T12 compression fracture (Acute) Vital Signs Temp Pulse Resp BP Pulse Ox O2 Del Method 98.4 F 98 14 115/77 98 Room Air 09/06/23 08:05 09/06/23 08:05 09/06/23 08:05 09/06/23 08:05 09/06/23 08:05 09/06/23 08:05 Oxygen Delivery Method Room Air Weight: 71.412 kg Body Mass Index (BMI) 19.5 Sodium 138 mmol/L (136-145) 09/06/23 05:40 Potassium 4.0 mmol/L (3.5-5.1) 09/06/23 05:40 Chloride 103 mmol/L (98-107) 09/06/23 05:40 Carbon Dioxide 28.0 mmol/L (21.0-32.0) 09/06/23 05:40 Anion Gap 7 (5-15) 09/06/23 05:40 BUN 5 mg/dL (7-18) L 09/06/23 05:40 Creatinine 0.54 mg/dL (0.70-1.30) L 09/06/23 05:40 Est GFR (MDRD) Af Amer 197 mL/min (>60) 09/06/23 05:40 Est GFR (MDRD) Non-Af 163 mL/min (>60) 09/06/23 05:40 BUN/Creatinine Ratio 9.3 RATIO (10-20) L 09/06/23 05:40 Glucose 95 mg/dL (74-106) 09/06/23 05:40 Assessment/Plan: 1. Pain: Tylenol 1000mg PO Q6h PRN Pain 1-3, Tramadol 50mg PO Q6h PRN Pain 4-5, oxycodone 5mg PO Q4h PRN Pain 6-10. Please continue to monitor for S/S increased/decreased pain, PRN medication usage, oversedation/constipation/respiratory depression with narcotic use. - The patient has used 1 dose of oxycodone since admission for pain rated 8/10, post medication pain rated 7/10. Please continue to monitor PRN usage. 2. Alcohol abuse: Folic acid 1mg PO Daily, Multivitamin 1 tab PO Daily, [id number] PO Daily. Please continue to monitor for s/s persistent alcohol withdrawal, mental status changes. 3. DVT prophylaxis: Lovenox 40mg SC Daily. Please continue to monitor for S/S bleeding/bruising, H/H (Hgb 11.7, Hct 35.2% on 09/05), CrCl (93 mL/min on 09/05). 4. Nicotine abuse: Nicotine Patch 21mg Topically Daily. Please continue to monitor for vivid dreams, nightmares, skin irritation. Please also encourage smoking cessation techniques for lifelong abstinence of nicotine. 5. Thrush: Nystatin 50,000 unit/5mL PO 4x/day thru 09/15. Please continue to monitor for resolution of infection. 6. Skin Integrity: Calmoseptine topically BID. Please continue to monitor for s/s skin irritation, ulcer formation, skin redness. 7. Bowel: Senna/Docusate 1 tab PO BID, magnesium Citrate 300mL PO Daily PRN. Please continue to monitor for increased/decreased constipation and/or diarrhea. - The patient's last BM was today, 09/06/23. PRN medication does not appear to be needed at this time, continue to monitor. Assessment/Plan for indications treated with psychotropic medications: 1. Insomnia?? : Doxepin 10mg PO QHS. Please evaluate need for medication, indication for use is not listed in chart. Please also consider a GDR for medication should it be deemed to be clinically indicated, thank you. Medical chart and medication regimen reviewed. The following medication irregularities or issues were identified: 1. Insomnia?? : Doxepin 10mg PO QHS. Please evaluate need for medication, indication for use is not listed in chart. Please also consider a GDR for medication should it be deemed to be clinically indicated, thank you. Date Date of Note:: 09/06/23 09/06/23 1454 <Electronically signed by Ivonne Jimenez> Ivonne Wooten Signature (if applicable): CC: ~ Signed [facility] Work Phone: 1(269) 335-419703-04-2024 Discharge summary Author Jarret Romero [facility] September 05, 2023 4:19pm Note Date/Time September 05, 2023 4:06 pm [facility] Medical Records Department [address] [place] [id number] Discharge Summary 09/05/23 1603 MR#: [id number] Acct: [id number] Name: JULI DAVIDSON Rep #:[id number] : 1960 63 From: Jarret Lee PCP: Care Physician,No Primary Status :ADM IN Location: [place] [address] Providers Date of Admission: 08/29/23 Primary Care Physician: No Primary Care Phys Reason For Visit: ALCOHOL WITHDRAWAL SYND Diagnosis Discharge Diagnosis (1) Alcohol abuse: Status: Acute Code(s): F10.10 - Alcohol abuse, uncomplicated (2) Thrombocytopenia: Status: Acute Code(s): D69.6 - Thrombocytopenia, unspecified (3) Recurrent falls: Status: Acute Code(s): R29.6 - Repeated falls (4) T12 compression fracture: Status: Acute Code(s): S22.080A - Wedge compression fracture of T11-T12 vertebra, initial encounter forclosed fracture (5) Severe malnutrition: Status: Acute Code(s): E43 - Unspecified severe protein-calorie malnutrition Plan This is a 63-year-old gentleman being admitted for acute alcohol withdrawal and severe back pain with multiple falls on single day. Patient was very resistant and opposed to EMS for coming to ED. 1. Acute alcohol withdrawal syndrome with history of chronic alcohol use, dependence and tolerance: Patient is being admitted to MedSurg floor. Patient on phenobarbital based order set along with other adjunctive medications gabapentin, Bentyl, Vistaril, clonidine, Klonopin as needed for alcohol withdrawal symptom control. Patient is on thiamine and folate acid. CIWA monitor. manager business planning consulted. 3/4: No acute seizures. Patient is on thiamine and folic acid.U tox screen negative. 2. Acute on recurrent fall probably due to chronic alcohol use, generalized weakness, disequilibrium with mild rhabdomyolysis: PT and OT ordered. UA showsoccult blood, RBC 0-5 cells and probably due to myoglobinuria. WBC 0. 3. Acute compression fracture of T12 vertebral body: Patient has tenderness over T12 vertebra but he can lift both lower extremities, muscle strength 4/5 with intact perineal sensation, voiding urine, cauda equina symptoms unlikely. Lumbar spine CT shows acute high-grade compression fracture of T12 vertebral body with mild retropulsion of the cortex. No central canal compromise. Loss of T12 vertebral body height with focal kyphotic deformity. 3/4: Follow-up with the pain management, Dr. Quirino Perry. 4. Most likely chronic hyponatremia from beer potomania associated with low solute intake: Patient has not been eating or drinking for 4 days. Gradual bringing up sodium to around 137 138. Last sodium was 139 in August 2021. Patient had 1 L of normal saline in ED. 3/4: Patient is well-hydrated. 5. Acute/subacute alcoholic hepatitis: Liver chemistry shows TB 1.3, ALT AST 106, 167 respectively, alkaline phosphatase 130. CCK 1577 showing mild rhabdomyolysis. Continue IV fluid normal saline. Patient does not have right upper quadrant abdominal pain or tenderness. Severe hypoalbuminemia from chronic alcohol use. 6. Multiple subcutaneous bruise/wound and ecchymosis: Patient has thrombocytopenia 49,000. Previous platelet count was 314,000 in August 2021. INR 0.9. 3/4: Multiple subcutaneous bruises and ecchymosis are healing good. DVT prophylaxis: Moderate to high risk. Pharmacological prophylaxis contraindicated due to multiple bruises and wounds and severe thrombocytopenia. Bilateral SCDs Living will/advanced directive/end of life care: Patient does not have living will or advanced directive. 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 After discussion of benefits/risks procedures involved with full code,DNR CC arrest and DNR CC, the patient opted for DNR CC arrest with no intubation. Patient states when my and time comes, let me go. Patient doesn't want artificial life support including intubation, tube feed, ventilator and/chest compression, central venous catheter, vasopressor and DC shock if needed Discharge medication reconciliation done. Discharge follow-up instructions completed. Discharge process discussed with the patient and all questions wereanswered to patient's satisfaction. Follow with PCP in 1 to 2 weeks Total time spent, exact 35 minutes on discharge meds reconciliation, examination, coordination of care with nurses and ancillary staff, review of imaging and blood test and discussion with the patient on follow-up instructions. Clinical Impression(s) from Imaging Studies Lumbar Spine CT 08/29/23 14:32 IMPRESSION: 1. Acute high-grade compression fracture of the T12 vertebral body, but with mild retropulsion of the cortex. A focal kyphotic deformity is present at the T11-T12 level due to loss of T12 vertebral body height. No central canal compromise is present, however may consider consulting with interventional radiology or the spine service for possible kyphoplasty given the focal deformity. 2. Multilevel degenerative changes, as described above. Chest X-Ray 08/29/23 15:06 IMPRESSION: 1. No demonstrated consolidation or infiltrates or pleural effusion. Mild cystic emphysematous changes and hyperinflation of both lungs noted. 2. The patient has an acute T12 vertebral body compression deformity not visualized by plain film was seen on the CT of the lumbar spine performed on the same day. Brain CT 08/29/23 15:12 IMPRESSION: 1. Chronic involutional changes of the brain. Electronically Signed: Og Benavides MD at 15:31 EST , Medications at Discharge Home Medications acetaminophen 500 mg tablet 500 mg PO Q4H PRN PRN Pain 1-10 or Temp > 100.4 F #0tabs 09/05/23 folic acid 1 mg tablet 1 mg PO DAILY #30 tabs 09/05/23 food supplemt, lactose-reduced 0.08 gram-1.5 kcal/mL oral liquid (Ensure Plus High Protein) 120 ml PO TIDCM #0 mL 09/05/23 multivitamin 1 tab PO BREAKFAST #0 tabs 09/05/23 nicotine 21 mg/24 hr daily transdermal patch 21 mg transdermal DAILY #0 ea 09/05/23 sennosides 8.6 mg tablet (senna) 8.6 mg PO QHS PRN Constipation #0 tabs 09/05/23 thiamine HCl (vitamin B1) 100 mg tablet 100 mg PO DAILY #30 tabs 09/05/23 Physical Exam Narrative Seen and examined on the day of discharge Physical exam General: Awake, oriented x 3. Cooperative. In moderate pain HEENT: Atraumatic, PERRLA, EOMI, Normocephalic Oral: Oral mucosa moist. No Gingival or Mucosal Lesions/ Ulcerations Neck: Supple, No JVD, Negative Carotid Bruits Chest wall/Lungs: Air entry diminished in bilateral lung bases. No crepitation/rhonchi Cardiovascular: Regular rate, Regular Rhythm, Normal S1, Normal S2, No M/G/R Abdomen: Bowel Sounds Present, Soft, Non Tender, Non-Distended : Spontaneously voiding urine. No dysuria. No renal angle tenderness. No suprapubic tenderness. Extremities: No edema, Capillary Refill Less than 3 Seconds Skin: Bruise, scabs, ecchymosis and excoriations all over the body including knees and lower extremities they are dry and healing good. Musculoskeletal: No tenderness present to lower extremities. Muscle strength 4/5 at knees and hip joints but painful and tender. Spine: Tenderness present on T11, T12 to L1. T12 vertebral fracture. Neurological: Cranial nerves II-XII grossly intact, DTR 2+/4. Sensation aroundperineal region and testicles. Does not seem cauda equina syndrome. Psych/Mental Status: Normal Affect, Appropriate. Medical Records Data Medical Nutrition Assessment Dietitian: Malnutrition Criteria Met Start: 08/30/23 11:40 Freq: Status: Active Protocol: Document 08/30/23 12:12 RMA (Rec: 08/30/23 12:12 RMA [id number]) Nutrition Malnutrition Evidence of Malnutrition Exists Yes Malnutrition (severe): Chronic,Social/Behavioral/ Environmental Evidenced By Suboptimal Energy Intake ( Severe),Weight Loss (Severe), Physical Changes (Severe) Clinical Problem Chronic Disease or Condition Related Malnutrition Etiology Severe protein-calorie malnutrition in the context of chronic disease and social circumstance related to inadequate oral intake and ETOH abuse Signs/Symptoms as evidenced by BMI 18.4, approximately 19-20% unintentional weight loss x 1 year, PO meeting less than 50% estimated nutrition needs x 6 -12 months, severe muscle wasting and fat depletion in clavicle, temporal region, arms and legs and poor PO at meals since admit <25% meals Status Active Problem Recommendation Dietitian Recommendations/Changes Will continue liberalized regular diet and encourage PO at meals; will adjust food consistency to [id number] per pt request for softer foods. Will d/c ensure plus HP with medpass as pt is refusing. Will add chocolate magic cup milkshakes with lunch and dinner as tolerated. Adjust ONS as needed to optimize oral intake. Trend weight as available as PO adequacy established with meals. Weight / BMI Weight Weight: 147 lb 4.301 oz Body Mass Index (BMI) 18.3 ABG / Lab / Microbiology Data 09/04/23 05:32 09/04/23 05:32 D/C Instructions Discharge Diet: No restrictions Meaningful Use Info Meaningful Use Diagnoses (Choose all that apply): None applicable Discharge Plan Admission Admit Date/Time: 08/29/23 15:52 Primary Reason for Your Visit: Recurrent fall and multiple bruises. Attending Provider: Jarret Romero Primary Care Provider: Care Physician,No Primary Consulting Providers: Jarret Romero; Anu Wong; Kennedy Echeverria Discharge Orders/Prescriptions Prescriptions: New multivitamin Tablet 1 tab PO BREAKFAST Qty: 0 0RF sennosides [senna] 8.6 mg Tablet 8.6 mg PO QHS PRN (Reason: Constipation) Qty: 0 0RF nicotine 21 mg/24 hr Patch 24 Hour 21 mg transdermal DAILY Qty: 0 0RF Ensure Plus High Protein 0.08 gram-1.5 kcal/mL Liquid 120 ml PO TIDCM Qty: 0 0RF thiamine HCl (vitamin B1) 100 mg tablet 100 mg PO DAILY Qty: 30 3RF folic acid 1 mg tablet 1 mg PO DAILY Qty: 30 3RF acetaminophen 500 mg Tablet 500 mg PO Q4H PRN PRN (Reason: Pain 1-10 or Temp > 100.4 F) Qty: 0 0RF Referrals / Follow Up: Sherry Patrick [Non-Staff] - None Care Physician,No Primary [Primary Care Provider] - Vel Koch EXCELLENCE MANAGER, EXCELLENCE MANAGER-C [Non-Staff] - See Referral Note (As instructed by case management) Quirino Perry MD [Med Staff - Active Staff] - Within 2 Weeks (For T12 vertebral fracture.) Disposition Disposition (needs filled in before D/C Order can be placed): Home, Self Care Charges/Coding Visit Charges Inpatient E&M: 91295 Disch Hosp >30min 09/05/23 1619 <Electronically signed by Jarret Romero MD> Cosigner Signature (if applicable): CC: Dr. Jarret Romero MD; No Primary Care Physician~ Signed [facility] Work Phone: [phone]) 515-308703-04-2024 Discharge summary Author Jarret Romero [facility] September 05, 2023 4:03pm Note Date/Time September 05, 2023 4:00 pm [facility] Medical Records Department [address] [place] [id number] Transfer to [facility] MR#: [id number] Acct: [id number] Name: JULI DAVIDSON Rep #:[id number] : 1960 63 From: Jarret Lee PCP: Care Physician,No Primary Status :ADM IN Certification of patient admission REQUIRED AT TIME OF ADMISSION. I CERTIFY THAT POST-HOSP[facility] SERVICES ARE REQUIRED TO BE GIVEN ON AN IN-PATIENT BASIS BECAUSE OF THE ABOVE NAMED PATIENT'S NEED FOR JAIL CARE ON A CONTINUING BASIS FOR THE CONDITION(S) FOR WHICH HE/SHE WAS RECEIVING IN-PATIENT HOSPITAL SERVICES PRIOR TO HIS/HER TRANSFER TO THE [facility]. 09/05/23 1603<Electronically signed by Jarret Romero MD> Diet Diet Order/Speech Therapy: 08/29/23 16:42 Diet: Regular - General Food consistency:: Easy to Chew Liquid Consistency:: Regular/Thin Type of Dietary Supplement:: [employer] milkshake w/ L&D Is pt able to select menu?: No Diet Comments: With snacks three times daily as tolerated; soft foods, edentulous Routine Orders/Code Status Suppository Type: Dulcolax 10mg Suppository Frequency: Daily PRN Code Status: DNRCC-A Wound(s) all over body, generalized scrapes in various stages of healing: Wound Type: Abrasion Therapies Weight Bearing: Weight bearing as tolerated Extremity Affected:: Bilateral Lower Physical Therapy: Eval and Treat Occupational Therapy: Eval and Treat Speech Therapy: Eval and Treat Problem/Diagnosis (1) Alcohol abuse: Status: Acute Code(s): F10.10 - Alcohol abuse, uncomplicated (2) Thrombocytopenia: Status: Acute Code(s): D69.6 - Thrombocytopenia, unspecified (3) Recurrent falls: Status: Acute Code(s): R29.6 - Repeated falls (4) T12 compression fracture: Status: Acute Code(s): S22.080A - Wedge compression fracture of T11-T12 vertebra, initial encounter forclosed fracture (5) Severe malnutrition: Status: Acute Code(s): E43 - Unspecified severe protein-calorie malnutrition Plan This is a 63-year-old gentleman being admitted for acute alcohol withdrawal and severe back pain with multiple falls on single day. Patient was very resistant and opposed to EMS for coming to ED. 1. Acute alcohol withdrawal syndrome with history of chronic alcohol use, dependence and tolerance: Patient is being admitted to MedSurg floor. Patient on phenobarbital based order set along with other adjunctive medications gabapentin, Bentyl, Vistaril, clonidine, Klonopin as needed for alcohol withdrawal symptom control. Patient is on thiamine and folate acid. CIWA monitor. manager business planning consulted. 08/30: Overall withdrawal symptoms are better. No seizure. No hallucination. Utox screen negative. 0. 2. Acute on recurrent fall probably due to chronic alcohol use, generalized weakness, disequilibrium with mild rhabdomyolysis: PT and OT ordered. UA showsoccult blood, RBC 0-5 cells and probably due to myoglobinuria. WBC 0. 3. Acute compression fracture of T12 vertebral body: Patient has tenderness over T12 vertebra but he can lift both lower extremities, muscle strength 4/5 with intact perineal sensation, voiding urine, cauda equina symptoms unlikely. Lumbar spine CT shows acute high-grade compression fracture of T12 vertebral body with mild retropulsion of the cortex. No central canal compromise. Loss of T12 vertebral body height with focal kyphotic deformity. When patient is outof alcohol withdrawal can have evaluation for kyphoplasty but currently out of the question. 4. Most likely chronic hyponatremia from beer potomania associated with low solute intake: Patient has not been eating or drinking for 4 days. Gradual bringing up sodium to around 137 138. Last sodium was 139 in August 2021. Patient had 1 L of normal saline in ED. 08/30 patient is well-hydrated. 5. Acute/subacute alcoholic hepatitis: Liver chemistry shows TB 1.3, ALT AST 106, 167 respectively, alkaline phosphatase 130. CCK 1577 showing mild rhabdomyolysis. Continue IV fluid normal saline. Patient does not have right upper quadrant abdominal pain or tenderness. Severe hypoalbuminemia from chronic alcohol use. 6. Multiple subcutaneous bruise/wound and ecchymosis: Patient has thrombocytopenia 49,000. Previous platelet count was 314,000 in August 2021. INR 0.9. DVT prophylaxis: Moderate to high risk. Pharmacological prophylaxis contraindicated due to multiple bruises and wounds and severe thrombocytopenia. Bilateral SCDs Living will/advanced directive/end of life care: Patient does not have living will or advanced directive. 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 After discussion of benefits/risks procedures involved with full code,DNR CC arrest and DNR CC, the patient opted for DNR CC arrest with no intubation. Patient states when my and time comes, let me go. Patient doesn't want artificial life support including intubation, tube feed, ventilator and/chest compression, central venous catheter, vasopressor and DC shock if needed Clinical Impression(s) from Imaging Studies Lumbar Spine CT 08/29/23 14:32 IMPRESSION: 1. Acute high-grade compression fracture of the T12 vertebral body, but with mild retropulsion of the cortex. A focal kyphotic deformity is present at the T11-T12 level due to loss of T12 vertebral body height. No central canal compromise is present, however may consider consulting with interventional radiology or the spine service for possible kyphoplasty given the focal deformity. 2. Multilevel degenerative changes, as described above. Chest X-Ray 08/29/23 15:06 IMPRESSION: 1. No demonstrated consolidation or infiltrates or pleural effusion. Mild cystic emphysematous changes and hyperinflation of both lungs noted. 2. The patient has an acute T12 vertebral body compression deformity not visualized by plain film was seen on the CT of the lumbar spine performed on the same day. Brain CT 08/29/23 15:12 IMPRESSION: 1. Chronic involutional changes of the brain. Electronically Signed: Og Benavides MD at 15:31 EST Reading Location ID and State: [address] [place] [address] , Service support , Allergies/Procedures Done in Hospital Allergies No Known Allergies Allergy (Verified 08/29/23 14:24) Type of Care/Length of Stay Estimated LOS: Convalescent Care Less Than 30 days Type of Care Needed: Skilled Rehab Potential: Good Prognosis: Good Additional Orders/Day of Discharge Day of Discharge: 09/05/23 Dietary and Speech Recommendations Dietitian Recommendations/Changes: Will continue liberalized regular diet and encourage PO at meals; will adjust food consistency to [id number] per pt request for softer foods. Will d/c ensure plus HP with medpass as pt is refusing. Will add chocolate magic cup milkshakes with lunch and dinner as tolerated. Adjust ONS as needed to optimize oral intake. Trend weight as available as PO adequacy established with meals. Discharge Plan Admission Admit Date/Time: 08/29/23 15:52 Primary Reason for Your Visit: Recurrent fall and multiple bruises. Attending Provider: Jarret Romero Primary Care Provider: Care Physician,No Primary Consulting Providers: Jarret Romero; Anu Wong; Kennedy Echeverria Discharge Orders/Prescriptions Prescriptions: New multivitamin Tablet 1 tab PO BREAKFAST Qty: 0 0RF sennosides [senna] 8.6 mg Tablet 8.6 mg PO QHS PRN (Reason: Constipation) Qty: 0 0RF nicotine 21 mg/24 hr Patch 24 Hour 21 mg transdermal DAILY Qty: 0 0RF Ensure Plus High Protein 0.08 gram-1.5 kcal/mL Liquid 120 ml PO TIDCM Qty: 0 0RF thiamine HCl (vitamin B1) 100 mg tablet 100 mg PO DAILY Qty: 30 3RF folic acid 1 mg tablet 1 mg PO DAILY Qty: 30 3RF acetaminophen 500 mg Tablet 500 mg PO Q4H PRN PRN (Reason: Pain 1-10 or Temp > 100.4 F) Qty: 0 0RF Referrals / Follow Up: Sherry Patrick [Non-Staff] - None Care Physician,No Primary [Primary Care Provider] - Vel Koch EXCELLENCE MANAGER, EXCELLENCE MANAGER-C [Non-Staff] - See Referral Note (As instructed by case management) Disposition Disposition (needs filled in before D/C Order can be placed): Home, Self Care 09/05/23 1603 <Electronically signed by Jarret Romero MD> Cosigner Signature (if applicable): CC: Dr. Kennedy Echeverria DO; Dr. Anu Wong DO; Dr. Jarret Romero MD; NoPrimary Care Physician ~ [facility] Work Phone: [phone]) 925-642703-03-2024 Progress note Author Anu Wong [facility] September 04, 2023 1:37pm Note Date/Time September 04, 2023 1:37 pm [facility] Medical Records Department [address] [place] [id number] Progress Note - Hospitalist 09/04/23 1333 MR#: [id number] Acct: [id number] Name: JULI DAVIDSON Rep #:[id number] : 1960 63 From: Anu Wong DO PCP: Care Physician,No Primary Status :ADM IN Location: [place] 165603-1 Reason for Visit Reason for Visit: Fall Subjective Subjective No issues overnight. Patient states he is feeling fine. Awaiting pre-CERT for discharge to TCU. Objective Data Objective Data Vital Signs: Vital Signs Temp Pulse Resp BP Pulse Ox O2 Del Method 98 F 81 18 135/80 H 94 Room Air 09/04/23 08:00 09/04/23 08:00 09/04/23 08:00 09/04/23 08:00 09/04/23 08:00 09/04/23 08:00 Oxygen Delivery Method Room Air Weight: 66.8 kg Body Mass Index (BMI) 18.3 Intake & Output: Intake and Output for Last 24 Hours 09/02/23 09/03/23 09/04/23 23:59 23:59 23:59 Intake Total 200 / 600 400 / 400 1080 / 1080 Output Total 3400 / 4300 2850 / 2850 2600 / 2600 Balance -3200 / -3700 -2450 / -2450 -1520 / -1520 Medical Nutrition Assessment Dietitian: Malnutrition Criteria Met Start: 08/30/23 11:40 Freq: Status: Active Protocol: Document 08/30/23 12:12 RMA (Rec: 08/30/23 12:12 RMA [id number]) Nutrition Malnutrition Evidence of Malnutrition Exists Yes Malnutrition (severe): Chronic,Social/Behavioral/ Environmental Evidenced By Suboptimal Energy Intake ( Severe),Weight Loss (Severe), Physical Changes (Severe) Clinical Problem Chronic Disease or Condition Related Malnutrition Etiology Severe protein-calorie malnutrition in the context of chronic disease and social circumstance related to inadequate oral intake and ETOH abuse Signs/Symptoms as evidenced by BMI 18.4, approximately 19-20% unintentional weight loss x 1 year, PO meeting less than 50% estimated nutrition needs x 6 -12 months, severe muscle wasting and fat depletion in clavicle, temporal region, arms and legs and poor PO at meals since admit <25% meals Status Active Problem Recommendation Dietitian Recommendations/Changes Will continue liberalized regular diet and encourage PO at meals; will adjust food consistency to [id number] per pt request for softer foods. Will d/c ensure plus HP with medpass as pt is refusing. Will add chocolate magic cup milkshakes with lunch and dinner as tolerated. Adjust ONS as needed to optimize oral intake. Trend weight as available as PO adequacy established with meals. Lab / Micro Data 09/04/23 05:32 09/04/23 05:32 Labs: Laboratory Results - last 24 hr 09/04/23 05:32: WBC 5.0, RBC 3.50 L, Hgb 11.3 L, Hct 33.7 L, MCV 96.3 H, MCH 32.3 H, MCHC 33.5, RDW Std Deviation 52.9 H, RDW Coeff of Yousuf 15.0 H, Plt Count 164, MPV 11.1, Immature Gran % (Auto) 1.000 H, Neut % (Auto) 53.2, Lymph % (Auto) 23.6, [place] % (Auto) 18.8 H, Eos % (Auto) 2.2, Baso % (Auto) 1.2 H, Absolute Neuts (auto) 2.7, Absolute Lymphs (auto) 1.18, Nucleated RBC % 0, Sodium 137, Potassium 3.8, Chloride 109 H, Carbon Dioxide 26.0, Anion Gap 2 L, BUN 7, Creatinine 0.48 L, Estim Creat Clear Calc 86.98, Est GFR (MDRD) Af Amer 227, Est GFR (MDRD) Non-Af 188, BUN/Creatinine Ratio 14.7, Glucose 79, Calcium 8.6 Physical Exam Narrative Const alert, oriented x3 and no apparent distress; Negative for average body habitus, healthy appearing or well nourished Constitutional Narrative: Thin, upper middle-aged, white male who appears much older than stated age, thin, appears disheveled and very weak, sitting up in a chair, appears chronically ill and unhealthy at baseline HEENT normocephalic, head/scalp atraumatic and moist oral mucous membranes HEENT Narrative: Dentition is poor GI GI Narrative: Abdomen is scaphoid Extremity Extremity Narrative: Decreased lean muscle mass Neuro oriented x3, moves all extremities and no focal motor deficits Neuro Narrative: No tremor Speech: speech normal Psych Psych Narrative: More interactive today Assessment & Plan Assessment/Plan (1) Alcohol abuse: (2) Thrombocytopenia: (3) Recurrent falls: (4) T12 compression fracture: (5) Severe malnutrition: PLAN: Plan Acute alcohol withdrawal -Resolved -Phenobarbital taper has been completed -Continue multivitamin -Patient was seen by 180 and declined any ongoing resources at discharge Mild rhabdomyolysis -Resolved Recurrent falls -Likely related to chronic alcohol use and generalized weakness related to recent flu -Continue PT/OT -Patient was discharged but change his mind at the last time and was willing to then go to rehab with pre-CERT pending for TCU Acute compression fracture at T12 -Patient without any neurological changes -Mild retropulsion of the cortex was noted -Consider outpatient follow-up at this all if it is continues to be problematic for him -Continue as needed pain medication -Does not seem to be all that symptomatic at this time Severe malnutrition -Dietitian is following -Add dietary supplement Chronic hyponatremia -Resolved Transaminitis/hyperbilirubinemia -Resolved Severe thrombocytopenia -Resolved as platelet count is now 164,000 -Likely from marrow toxicity related to alcohol use History of tobacco abuse -Patient denies need for nicotine replacement therapy -As needed aerosols -Recommend cessation DVT prophylaxis -Continue heparin subcu twice daily CODE STATUS -DNR CCA with no intubation as discussed on admission Charges/Coding Visit Charges Inpatient E&M: 40690 Subs Hosp L1 09/04/23 1337 <Electronically signed by Anu Wong DO> Cosigner Signature (if applicable): CC: ~ Signed [facility] Work Phone: 1(342) 706-401603-02-2024 Progress note Author Anu Wong [facility] September 03, 2023 2:51pm Note Date/Time September 03, 2023 2:51 pm [facility] Medical Records Department [address] [place] [address] Progress Note - Hospitalist 09/03/23 1442 MR#: [id number] Acct: [id number] Name: JULI DAVIDSON Rep #:[id number] : 1960 63 From: Anu Wong DO PCP: Care Physician,No Primary Status :ADM IN Location: [place] [address] Reason for Visit Reason for Visit: Fall Subjective Subjective No issues overnight. Patient still with tremor with movement but overall much improved. Waiting pre-CERT to go to the TCU at discharge. Objective Data Objective Data Vital Signs: Vital Signs Temp Pulse Resp BP Pulse Ox O2 Del Method 98.0 F 90 20 H 126/79 H 94 Room Air 09/03/23 14:34 09/03/23 14:34 09/03/23 14:34 09/03/23 14:34 09/03/23 14:34 09/03/23 12:06 Oxygen Delivery Method Room Air Weight: 66.8 kg Body Mass Index (BMI) 18.3 Intake & Output: Intake and Output for Last 24 Hours 09/01/23 09/02/23 09/03/23 23:59 23:59 23:59 Intake Total 240 / 440 200 / 600 400 / 400 Output Total 1000 / 1600 3400 / 4300 1500 / 1500 Balance -760 / -1160 -3200 / -3700 -1100 / -1100 Medical Nutrition Assessment Dietitian: Malnutrition Criteria Met Start: 08/30/23 11:40 Freq: Status: Active Protocol: Document 08/30/23 12:12 RMA (Rec: 08/30/23 12:12 RMA [id number]) Nutrition Malnutrition Evidence of Malnutrition Exists Yes Malnutrition (severe): Chronic,Social/Behavioral/ Environmental Evidenced By Suboptimal Energy Intake ( Severe),Weight Loss (Severe), Physical Changes (Severe) Clinical Problem Chronic Disease or Condition Related Malnutrition Etiology Severe protein-calorie malnutrition in the context of chronic disease and social circumstance related to inadequate oral intake and ETOH abuse Signs/Symptoms as evidenced by BMI 18.4, approximately 19-20% unintentional weight loss x 1 year, PO meeting less than 50% estimated nutrition needs x 6 -12 months, severe muscle wasting and fat depletion in clavicle, temporal region, arms and legs and poor PO at meals since admit <25% meals Status Active Problem Recommendation Dietitian Recommendations/Changes Will continue liberalized regular diet and encourage PO at meals; will adjust food consistency to [id number] per pt request for softer foods. Will d/c ensure plus HP with medpass as pt is refusing. Will add chocolate magic cup milkshakes with lunch and dinner as tolerated. Adjust ONS as needed to optimize oral intake. Trend weight as available as PO adequacy established with meals. Lab / Micro Data 09/02/23 05:38 09/02/23 05:38 Physical Exam Narrative Const alert, oriented x3 and no apparent distress; Negative for average body habitus, healthy appearing or well nourished Constitutional Narrative: Upper middle-aged, white male who appears much older than stated age, thin, appears disheveled and very weak, sitting up in a chair, appears chronically illand unhealthy at baseline, nursing at bedside HEENT normocephalic, head/scalp atraumatic and moist oral mucous membranes Neuro oriented x3, moves all extremities and no focal motor deficits Speech: speech normal Psych Psych Narrative: Affect is flat and mood seems somewhat depressed Assessment & Plan Assessment/Plan (1) Alcohol abuse: (2) Thrombocytopenia: (3) Recurrent falls: (4) T12 compression fracture: (5) Severe malnutrition: PLAN: Plan Acute alcohol withdrawal -Resolved -Patient with history of chronic alcohol use dependence and tolerance -Drinks at least 12 12 ounce beers daily -Phenobarbital taper has been completed -Discontinue withdrawal medications -Discontinue thiamine and folate -Add multivitamin -Discontinue CIWA and Ativan -Patient was seen by 180 and declined any ongoing resources at discharge Mild rhabdomyolysis -Resolving on last CK assessment -No need to repeat Recurrent falls -Likely related to chronic alcohol use and generalized weakness related to recent flu -Continue PT/OT -At the time of discharge patient changed his mind and is now willing to go to nursing facility for rehab-patient has asked been accepted at TCU and currently awaiting pre-CERT Acute compression fracture at T12 -Patient without any neurological changes -Mild retropulsion of the cortex was noted -Consider outpatient follow-up at this all if it is continues to be problematic for him -Continue as needed pain medication -Does not seem to be all that symptomatic at this time Severe malnutrition -Dietitian is following -Add dietary supplement Chronic hyponatremia -Mild -133 -Continue to monitor periodically Transaminitis/hyperbilirubinemia -Resolving-no need to repeat -ALT and alk phos have normalized -Total bilirubin has normalized with slightly elevated direct bilirubin -AST is just mildly elevated at 59 Severe thrombocytopenia -Coags are unremarkable -Likely related to marrow toxicity versus splenic sequestration -Platelet count for the first time today is above 50,000 and seems to be stabilizing -Continue to monitor periodically History of tobacco abuse -Patient denies need for nicotine replacement therapy -As needed aerosols -Recommend cessation DVT prophylaxis -Discontinue SCDs -Continue heparin subcu twice daily CODE STATUS -DNR CCA with no intubation as discussed on admission Charges/Coding Visit Charges Inpatient E&M: 81026 Subs Hosp L1 09/03/23 1451 <Electronically signed by nAu Wong DO> Cosigner Signature (if applicable): CC: ~ Signed [facility] Work Phone: 1(524) 563-368403-01-2024 Progress note Author Anu Wong [facility] September 02, 2023 4:08pm Note Date/Time September 02, 2023 4:08 pm [facility] Medical Records Department [address] [place] [address] Progress Note - Hospitalist 09/02/23 1607 MR#: [id number] Acct: [id number] Name: JULI DAVIDSON Rep #:[id number] : 1960 63 From: Anu Wong DO PCP: Care Physician,No Primary Status :ADM [facility] Note I was notified later this afternoon that the patient has changed his mind and now is amenable to going to rehab. He will need pre-CERT so he will be here through the weekend with plans to discharge to TCU as soon as pre-CERT is obtained. Patient is medically stable for discharge at this time. Visit Charges Inpatient E&M: 95894 Subs Hosp L2 09/02/23 1608 <Electronically signed by Anu Wong DO> Cosigner Signature (if applicable): CC: ~ Signed [facility] Work Phone: 1(670) 606-248003-01-2024 Discharge summary Author Anu Wong [facility] September 02, 2023 1:32pm Note Date/Time September 02, 2023 1:19 pm [facility] Medical Records Department [address] [place] [address] Discharge Summary 09/02/23 1319 MR#: [id number] Acct: [id number] Name: JULI DAVIDSON Rep #:[id number] : 1960 63 From: Anu Wong DO PCP: Care Physician,No Primary Status :ADM IN Location: [place] [address] Providers Date of Admission: 08/29/23 Date of Discharge: 09/02/23 Primary Care Physician: No Primary Care Phys Reason For Visit: ALCOHOL WITHDRAWAL SYND Diagnosis Discharge Diagnosis (1) Alcohol abuse: Status: Acute Code(s): F10.10 - Alcohol abuse, uncomplicated (2) Thrombocytopenia: Status: Acute Code(s): D69.6 - Thrombocytopenia, unspecified (3) Recurrent falls: Status: Acute Code(s): R29.6 - Repeated falls (4) T12 compression fracture: Status: Acute Code(s): S22.080A - Wedge compression fracture of T11-T12 vertebra, initial encounter forclosed fracture Medications at Discharge Home Medications NK 08/29/23 Hospital Course Operations None Procedures - (CT brain/chest x-ray/lumbar spine CT) Summary of Care Provided Minutes Spent on Discharge: 36 Hospital Course: Mr. Davidson is a 63-year-old white male who presented via EMS after suffering a fall on the morning of admission. He presented to emergency department on 08/29/2023 and stated he was on the floor for hours at which time he crawled to the couch and called his niece who then in turn called EMS. Patient reported that he had fallen very frequently since he had the flu about 3 weeks ago. He drinks about 12 beers a day and is currently urinating in a bucket next to him so he does not have to get up too much. On presentation he was complaining of some low back pain from the fall but denied hitting his head. He is noncompliant with medical care. On presentation he had not eaten in about 3 to 4 days and EMS reported that his whole living room in the house was in disarray with blood on the wall and carpet. Patient did acknowledge that he drinks too much and complained of having bruises all over his body. He was given IV fluidsin the emergency department and admitted to the medical floor at which time he was started on a phenobarbital taper as well as supportive medications and thiamine and folate. 180 was consulted however the patient has declined any ongoing services from 180 and states he will do it on his own. Placement has been recommended and discussed at nausea with the patient however patient is adamant that he will go home once he is medically stable. The importance of ongoing rehab after discharge but he was set and going home. I do have high suspicion that he will return with worsening injury or complication that could result in and he was informed of this and still stated he wanted to go home. His readmission risk is high. On the day of discharge she did report that he had been previously diagnosed with Parkinson's but never followed up with anybody for this and has no intention to do so. He was still mildly tremulous nests with movement however is fine tremor related to his alcohol detox had resolved. He was anxious to go home and we felt that he was medicallystable. APS referral was made. Case management called his previous primary care physician Dr. Diggs, and they indicated they would get him into the office however I was trying for suspicion that he may not show up for his appointment. His platelet count was recovering at the time of discharge as it appears he has thrombocytopenia related to marrow toxicity and possibly liver related alcohol disease. He was discharged home in stable condition on 09/02/2023. He did say he would be amenable to home health however with him refusing to follow-up with a primary care physician we are unable to establish home health at discharge. He was informed of this prior to discharge. Discharge diagnoses: Acute Alcohol Withdrawal Mild Rhabdomyolysis Recurrent Falls Suspected Movement Disorder Acute compression fracture at T12 Chronic hyponatremia Hypokalemia Transaminitis Hyperbilirubinemia Thrombocytopenia Tobacco abuse Suspected COPD Physical Exam Narrative Const alert, oriented x3 and no apparent distress; Negative for average body habitus, healthy appearing or well nourished Constitutional Narrative: Upper middle-aged, white male who appears much older than stated age, thin, appears disheveled and very weak, tremor seems to be resolved at rest, sitting up in a chair, appears chronically ill and unhealthy at baseline General Appearance: cooperative, comfortable, well kempt and well developed Orientation / Consciousness: awake, oriented to person, oriented to place and oriented to time Exam Limitations: no limitations Nutritional Appearance: thin HEENT normocephalic, head/scalp atraumatic and moist oral mucous membranes HEENT Narrative: Dentition is poor, mild to moderate hearing loss, Mallampati 1 Eyes PERRL, EOMs intact bilaterally and conjunctivae normal Eyes Narrative: No scleral icterus Neck no lymphadenopathy and supple Neck Narrative: Trachea midline, no thyroid enlargement Resp normal respiratory effort, no retractions, no use of accessory muscles and clearto auscultation bilaterally Resp Narrative: Diffusely diminished but clear Auscultation: Negative for rales, rhonchi or wheezes Cardio regular rate, regular rhythm, S1 normal heart sound, S2 normal heart sound, no murmurs, no rub, no gallops and no clicks GI normal to inspection, nondistended, normoactive bowel sounds, soft to palpation and non-tender GI Narrative: Abdomen is scaphoid Extremity no clubbing, cyanosis or edema Extremity Narrative: Decreased lean muscle mass Skin skin turgor normal and no jaundice Skin Narrative: Scattered abrasions and ecchymosis with no signs of infection Neuro oriented x3, moves all extremities and no focal motor deficits Neuro Narrative: Marked generalized weakness, shuffling gait with some intermittent tremor duringmovement, no resting tremor noted today Speech: speech normal Psych Psych Narrative: Affect is flat and mood seems somewhat depressed Medical Records Data Medical Nutrition Assessment Dietitian: Malnutrition Criteria Met Start: 08/30/23 11:40 Freq: Status: Active Protocol: Document 08/30/23 12:12 RMA (Rec: 08/30/23 12:12 RMA [id number]) Nutrition Malnutrition Evidence of Malnutrition Exists Yes Malnutrition (severe): Chronic,Social/Behavioral/ Environmental Evidenced By Suboptimal Energy Intake ( Severe),Weight Loss (Severe), Physical Changes (Severe) Clinical Problem Chronic Disease or Condition Related Malnutrition Etiology Severe protein-calorie malnutrition in the context of chronic disease and social circumstance related to inadequate oral intake and ETOH abuse Signs/Symptoms as evidenced by BMI 18.4, approximately 19-20% unintentional weight loss x 1 year, PO meeting less than 50% estimated nutrition needs x 6 -12 months, severe muscle wasting and fat depletion in clavicle, temporal region, arms and legs and poor PO at meals since admit <25% meals Status Active Problem Recommendation Dietitian Recommendations/Changes Will continue liberalized regular diet and encourage PO at meals; will adjust food consistency to [id number] per pt request for softer foods. Will d/c ensure plus HP with medpass as pt is refusing. Will add chocolate magic cup milkshakes with lunch and dinner as tolerated. Adjust ONS as needed to optimize oral intake. Trend weight as available as PO adequacy established with meals. Weight / BMI Weight Weight: 66.8 kg Body Mass Index (BMI) 18.3 ABG / Lab / Microbiology Data 09/02/23 05:38 09/02/23 05:38 Laboratory: Laboratory Results - last 24 hr 09/02/23 05:38: WBC 5.0, RBC 3.42 L, Hgb 11.3 L, Hct 33.1 L, MCV 96.8 H, MCH 33.0 H, MCHC 34.1, RDW Std Deviation 51.8 H, RDW Coeff of Yousuf 14.6, Plt Count 77L, MPV 12.9 H, Sodium 134 L, Potassium 3.7, Chloride 106, Carbon Dioxide 24.0, Anion Gap 4 L, BUN 10, Creatinine 0.53 L, Estim Creat Clear Calc 86.98, Est GFR (MDRD) Af Amer 199, Est GFR (MDRD) Non-Af 164, BUN/Creatinine Ratio 18.7, Glucose 102, Calcium 8.6 D/C Instructions Discharge Diet: No restrictions Discharge Activity: Return to Normal Activity Meaningful Use Info Meaningful Use Diagnoses (Choose all that apply): None applicable Discharge Plan Admission Admit Date/Time: 08/29/23 15:52 Primary Reason for Your Visit: Fall Attending Provider: Anu Wong Primary Care Provider: Care Physician,No Primary Consulting Providers: Jarret Romero Discharge Orders/Prescriptions Prescriptions: No Action NK Referrals / Follow Up: Sherry Patrick [Non-Staff] - None Care Physician,No Primary [Primary Care Provider] - Vel Koch EXCELLENCE MANAGER, EXCELLENCE MANAGER-C [Non-Staff] - See Referral Note (As instructed by case management) Disposition Disposition (needs filled in before D/C Order can be placed): Home, Self Care Charges/Coding Visit Charges Inpatient E&M: 00382 Disch Hosp >30min 09/02/23 1332 <Electronically signed by Anu Wong DO> Cosigner Signature (if applicable): CC: EXCELLENCE MANAGER-C Vel Koch; Dr. Anu Wong DO; No Primary Care Physician~ Signed [facility] Work Phone: [phone]) 212-219302-29-2024 Progress note Author Anu Wong [facility] September 01, 2023 3:32pm Note Date/Time September 01, 2023 3:03pm [facility] Medical Records Department [address] [place] [address] Progress Note - Hospitalist 09/01/23 1457 MR#: [id number] Acct: [id number] Name: JULI DAVIDSON Rep #:[id number] : 1960 63 From: Anu Wong DO PCP: Care Physician,No Primary Status :ADM IN Location: [place] [address] Reason for Visit Reason for Visit: Fall Subjective Subjective No issues overnight. Patient states he feels less tremulous however nurses aidestates that he is still fairly shaky with ambulation. I tried to discuss with him further about going to skilled rehab after discharge and he is adamant that he will not be going and wants to go home. Objective Data Objective Data Vital Signs: Vital Signs Temp Pulse Resp BP Pulse Ox O2 Del Method 98.5 F 80 16 107/80 95 Room Air 09/01/23 08:57 09/01/23 08:57 09/01/23 08:57 09/01/23 08:57 09/01/23 14:26 09/01/23 08:57 Oxygen Delivery Method Room Air Weight: 66.8 kg Body Mass Index (BMI) 18.3 Intake & Output: Intake and Output for Last 24 Hours 08/30/23 08/31/23 09/01/23 23:59 23:59 23:59 Intake Total 2150 / 2150 240 / 240 240 / 240 Output Total 1300 / 1300 1225 / 1225 Balance 850 / 850 -985 / -985 240 / 240 Medical Nutrition Assessment Dietitian: Malnutrition Criteria Met Start: 08/30/23 11:40 Freq: Status: Active Protocol: Document 08/30/23 12:12 RMA (Rec: 08/30/23 12:12 RMA [id number]) Nutrition Malnutrition Evidence of Malnutrition Exists Yes Malnutrition (severe): Chronic,Social/Behavioral/ Environmental Evidenced By Suboptimal Energy Intake ( Severe),Weight Loss (Severe), Physical Changes (Severe) Clinical Problem Chronic Disease or Condition Related Malnutrition Etiology Severe protein-calorie malnutrition in the context of chronic disease and social circumstance related to inadequate oral intake and ETOH abuse Signs/Symptoms as evidenced by BMI 18.4, approximately 19-20% unintentional weight loss x 1 year, PO meeting less than 50% estimated nutrition needs x 6 -12 months, severe muscle wasting and fat depletion in clavicle, temporal region, arms and legs and poor PO at meals since admit <25% meals Status Active Problem Recommendation Dietitian Recommendations/Changes Will continue liberalized regular diet and encourage PO at meals; will adjust food consistency to [id number] per pt request for softer foods. Will d/c ensure plus HP with medpass as pt is refusing. Will add chocolate magic cup milkshakes with lunch and dinner as tolerated. Adjust ONS as needed to optimize oral intake. Trend weight as available as PO adequacy established with meals. Lab / Micro Data 09/01/23 07:18 09/01/23 07:18 Labs: Laboratory Results - last 24 hr 09/01/23 07:18: WBC 5.6, RBC 3.64 L, Hgb 11.7 L, Hct 35.3 L, MCV 97.0 H, MCH 32.1 H, MCHC 33.1, RDW Std Deviation 51.7 H, RDW Coeff of Yousuf 14.3, Plt Count 62L, MPV 12.4 H, Differential Comment SCANNED, Sodium 133 L, Potassium 4.0, Chloride 105, Carbon Dioxide 25.0, Anion Gap 3 L, BUN 10, Creatinine 0.73, EstimCreat Clear Calc 86.98, Est GFR (MDRD) Af Amer 138, Est GFR (MDRD) Non-Af 114, BUN/Creatinine Ratio 13.7, Glucose 98, Calcium 8.4 L, Magnesium 1.8, Total Bilirubin 0.80, Direct Bilirubin 0.37 H, AST 59 H, ALT 57, Alkaline Phosphatase 104, Total Creatine Kinase 645 H, Total Protein 5.5 L, Albumin 2.5 L, Globulin 3.0 Physical Exam Narrative Const alert, oriented x3 and no apparent distress; Negative for average body habitus, healthy appearing or well nourished Constitutional Narrative: Upper middle-aged, white male who appears much older than stated age, thin, appears disheveled and very weak, less tremulous, sitting up in a chair, appearschronically ill and unhealthy at baseline HEENT head/scalp atraumatic and moist oral mucous membranes HEENT Narrative: Dentition is poor, Mallampati is 1, no thrush Resp normal respiratory effort, no retractions, no use of accessory muscles and clearto auscultation bilaterally Resp Narrative: Diffusely diminished but clear Auscultation: Negative for rales, rhonchi or wheezes Cardio regular rate, regular rhythm, S1 normal heart sound, S2 normal heart sound, no murmurs, no rub, no gallops and no clicks GI normal to inspection, nondistended, normoactive bowel sounds, soft to palpation and non-tender GI Narrative: Abdomen is scaphoid Extremity no clubbing, cyanosis or edema Extremity Narrative: Decreased lean muscle mass Neuro oriented x3, moves all extremities and no focal motor deficits Neuro Narrative: Marked generalized weakness, tremulousness noted Speech: speech normal Psych Psych Narrative: Affect is flat and mood seems somewhat depressed Assessment & Plan Assessment/Plan (1) Alcohol abuse: (2) Thrombocytopenia: (3) Recurrent falls: (4) T12 compression fracture: PLAN: Plan Acute alcohol withdrawal -Patient with history of chronic alcohol use dependence and tolerance -Drinks at least 12 12 ounce beers daily -Continue phenobarbital taper and supportive medications -Continue thiamine and folate -Continue CIWA protocol with as needed Ativan as patient is significantly tremulous today -Patient was seen by 180 and declined any ongoing resources at discharge Mild rhabdomyolysis -Resolving his CK is trending down Recurrent falls -Likely related to chronic alcohol use and generalized weakness related to recent flu -Continue PT/OT -Patient likely not qualify for penitentiary facility and is adamant that he would want to go home anyway -After discussion patient remains adamant that he wants to go home and will be going home at discharge Acute compression fracture at T12 -Patient without any neurological changes -Mild retropulsion of the cortex was noted -Consider outpatient follow-up at this all if it is continues to be problematic for him -Continue as needed pain medication -Does not seem to be all that symptomatic at this time Chronic hyponatremia -Mild - 133 -Continue to monitor Hypokalemia -Resolved with current potassium at 4.0 Transaminitis/hyperbilirubinemia -Resolving-no need to repeat -ALT and alk phos have normalized -Total bilirubin has normalized with slightly elevated direct bilirubin -AST is just mildly elevated at 59 Severe thrombocytopenia -Coags are unremarkable -Likely related to marrow toxicity versus splenic sequestration -Platelet count for the first time today is above 50,000 and seems to be stabilizing -Continue to monitor History of tobacco abuse -Patient denies need for nicotine replacement therapy -As needed aerosols -Recommend cessation DVT prophylaxis -SCDs -Start heparin twice daily with platelet count greater than 50,000 CODE STATUS -DNR CCA with no intubation as discussed on admission Charges/Coding Visit Charges Inpatient E&M: 15078 Subs Hosp L2 09/01/23 1503 <Electronically signed by Anu Wong DO> Cosigner Signature (if applicable): CC: ~ Signed ADDENDUM by Dr. Anu Wong DO on 09/01/23 at 1531 Addendum Severe malnutrition -Supplements added and dietitian is following 09/01/23 1531<Electronically signed by Anu Wong DO> Cosigner Signature (if applicable): cc: ~* Signed [facility] Work Phone: 1([phone]) 406-207102-28-2024 Progress note Author Anu Wong [facility] August 31, 2023 12:23pm Note Date/Time August 31, 2023 12:23pm [facility] Medical Records Department [address] [place] [address] Progress Note - Hospitalist 08/31/23 1209 MR#: [id number] Acct: [id number] Name: JULI DAVIDSON Rep #:[id number] : 1960 63 From: Anu Wong DO PCP: Care Physician,No Primary Status :ADM IN Location: [place] [id number] Reason for Visit Reason for Visit: Fall Subjective Subjective Mr. Davidson is a 63-year-old white male who presented via EMS after suffering a fall on the morning of admission. He presented to emergency department on 08/29/2023 and stated he was on the floor for hours at which time he crawled to the couch and called his niece who then in turn called EMS. Patient reported that he had fallen very frequently since he had the flu about 3 weeks ago. He drinks about 12 beers a day and is currently urinating in a bucket next to him so he does not have to get up too much. On presentation he was complaining of some low back pain from the fall but denied hitting his head. He is noncompliant with medical care. On presentation he had not eaten in about 3 to 4 days and EMS reported that his whole living room in the house was in disarray with blood on the wall and carpet. Patient did acknowledge that he drinks too much and complained of having bruises all over his body. He was given IV fluidsin the emergency department and admitted to the medical floor at which time he was started on a phenobarbital taper as well as supportive medications and thiamine and folate. 180 was consulted however the patient has declined any ongoing services from 180 and states he will do it on his own. Placement has been recommended however patient is adamant that he will go home once he is medicallystable. He is agreeable to stay until he is medically stable. He is currently fairly shaky and off balance. Denies any current overt issues however. Would like me to give him something to make the shaking to stop. Objective Data Objective Data Vital Signs: Vital Signs Temp Pulse Resp BP Pulse Ox O2 Del Method 98.3 F 76 18 132/87 H 94 Room Air 08/31/23 09:06 08/31/23 09:06 08/31/23 09:06 08/31/23 09:06 08/31/23 10:40 08/31/23 09:06 Oxygen Delivery Method Room Air Weight: 66.8 kg Body Mass Index (BMI) 18.3 Intake & Output: Intake and Output for Last 24 Hours 08/29/23 08/30/23 08/31/23 23:59 23:59 23:59 Intake Total 1447.92 / 1597.92 2150 / 2150 Output Total 300 / 900 1300 / 1300 800 / 800 Balance 1147.92 / 697.92 850 / 850 -800 / -800 Medical Nutrition Assessment Dietitian: Malnutrition Criteria Met Start: 08/30/23 11:40 Freq: Status: Active Protocol: Document 08/30/23 12:12 RMA (Rec: 08/30/23 12:12 RMA [id number]) Nutrition Malnutrition Evidence of Malnutrition Exists Yes Malnutrition (severe): Chronic,Social/Behavioral/ Environmental Evidenced By Suboptimal Energy Intake ( Severe),Weight Loss (Severe), Physical Changes (Severe) Clinical Problem Chronic Disease or Condition Related Malnutrition Etiology Severe protein-calorie malnutrition in the context of chronic disease and social circumstance related to inadequate oral intake and ETOH abuse Signs/Symptoms as evidenced by BMI 18.4, approximately 19-20% unintentional weight loss x 1 year, PO meeting less than 50% estimated nutrition needs x 6 -12 months, severe muscle wasting and fat depletion in clavicle, temporal region, arms and legs and poor PO at meals since admit <25% meals Status Active Problem Recommendation Dietitian Recommendations/Changes Will continue liberalized regular diet and encourage PO at meals; will adjust food consistency to [id number] per pt request for softer foods. Will d/c ensure plus HP with medpass as pt is refusing. Will add chocolate magic cup milkshakes with lunch and dinner as tolerated. Adjust ONS as needed to optimize oral intake. Trend weight as available as PO adequacy established with meals. Lab / Micro Data 08/31/23 05:35 08/31/23 05:35 Labs: Laboratory Results - last 24 hr 08/29/23 14:45: Diff Path Review Reviewed 08/30/23 06:41: Vitamin B12 506, Folate 5.80 08/31/23 05:35: WBC 3.9 L, RBC 3.45 L, Hgb 11.2 L, Hct 32.9 L, MCV 95.4 H D, MCH32.5 H, MCHC 34.0 D, RDW Std Deviation 50.0 H, RDW Coeff of Yousuf 14.3, Plt Count50 L*, MPV 12.8 H, Immature Gran % (Auto) 1.300 H, Neut % (Auto) 64.5, Lymph % (Auto) 21.6, [place] % (Auto) 9.8, Eos % (Auto) 2.3, Baso % (Auto) 0.5, Absolute Neuts (auto) 2.5, Absolute Lymphs (auto) 0.84, Nucleated RBC % 0, Sodium 135 L, Potassium 3.3 L, Chloride 106, Carbon Dioxide 25.0, Anion Gap 4 L, BUN 6 L, Creatinine 0.59 L, Estim Creat Clear Calc 86.98, Est GFR (MDRD) Af Amer 178, Est GFR (MDRD) Non-Af 147, BUN/Creatinine Ratio 10.2, Glucose 111 H, Calcium 7.8 L Physical Exam Const alert, oriented x3 and no apparent distress; Negative for average body habitus, healthy appearing or well nourished Constitutional Narrative: Upper middle-aged, white male who appears much older than stated age, thin, appears disheveled and very weak, somewhat tremulous, appears unhealthy HEENT head/scalp atraumatic and moist oral mucous membranes HEENT Narrative: Dentition is poor, Mallampati is 2, no thrush Head and Scalp: normocephalic Resp normal respiratory effort, no retractions, no use of accessory muscles and clearto auscultation bilaterally Resp Narrative: Diffusely diminished but clear Auscultation: Negative for rales, rhonchi or wheezes Cardio regular rate, regular rhythm, S1 normal heart sound, S2 normal heart sound, no murmurs, no rub, no gallops and no clicks GI normal to inspection, nondistended, normoactive bowel sounds and soft to palpation GI Narrative: Abdomen is scaphoid Extremity no clubbing, cyanosis or edema Extremity Narrative: Decreased lean muscle mass Skin Skin Narrative: Scattered abrasions and ecchymosis with no signs of infection Neuro oriented x3, moves all extremities and no focal motor deficits Neuro Narrative: Marked generalized weakness, tremulousness noted Speech: speech normal Psych Psych Narrative: Affect is flat and mood seems somewhat depressed Assessment & Plan Assessment/Plan (1) Alcohol abuse: (2) Thrombocytopenia: (3) Recurrent falls: (4) T12 compression fracture: PLAN: Plan Acute alcohol withdrawal -Patient with history of chronic alcohol use dependence and tolerance -Drinks at least 1212 ounce beers daily -Continue phenobarbital taper and supportive medications -Continue thiamine and folate -Add CIWA protocol with as needed Ativan as patient is significantly tremulous today -Patient was seen by 180 and declined any ongoing resources at discharge Mild rhabdomyolysis -Recheck a.m. CK Recurrent falls -Likely related to chronic alcohol use and generalized weakness related to recent flu -Continue PT/OT -Patient likely not qualify for penitentiary facility and is adamant that he would want to go home anyway -Will discuss home health however I suspect he will not be amenable to this Acute compression fracture at T12 -Patient without any neurological changes -Mild retropulsion of the cortex was noted -Consider outpatient follow-up at this all if it is continues to be problematic for him -Continue as needed pain medication Chronic hyponatremia -Mild -135 today -Continue to monitor Hypokalemia -Potassium 3.3 -Will give 40 mill equivalents p.o. potassium -Recheck in a.m. if does not correct appropriately will check magnesium Transaminitis/hyperbilirubinemia -Suspect related to acute alcoholic hepatitis -Have been trending down -Repeat in a.m. Severe thrombocytopenia -Coags are unremarkable -Likely related to marrow toxicity versus splenic sequestration -Continue to monitor History of tobacco abuse -Patient denies need for nicotine replacement therapy -As needed aerosols -Recommend cessation DVT prophylaxis -SCDs -Chemoprophylaxis contraindicated due to marked thrombocytopenia CODE STATUS -DNR CCA with no intubation as discussed on admission Charges/Coding Visit Charges Inpatient E&M: 74873 Subs Hosp L2 08/31/23 1223 <Electronically signed by Anu Wong DO> Cosigner Signature (if applicable): CC: ~ Signed [facility] Work Phone: [phone]) 243-610502-27-2024 Progress note Author Jarret Romero [facility] August 30, 2023 1:56pm Note Date/Time August 30, 2023 1:57pm [facility] Medical Records Department [address] [place] [address] Progress Note - Hospitalist 08/30/23 1349 MR#: [id number] Acct: [id number] Name: JULI DAVIDSON Rep #:[id number] : 1960 63 From: Jarret Lee PCP: Care Physician,No Primary Status :ADM IN Location: [place] [address] Reason for Visit Reason for Visit: Diagnoses Alcohol use, unspecified with withdrawal delirium (08/29/23) Repeated falls (08/29/23) Objective Data Objective Data Vital Signs: Vital Signs Temp Pulse Resp BP Pulse Ox O2 Del Method 98.2 F 103 H 18 134/92 H 94 Room Air 08/30/23 08:40 08/30/23 08:40 08/30/23 08:40 08/30/23 08:40 08/30/23 08:40 08/30/23 08:51 Oxygen Delivery Method Room Air Weight: 147 lb 4.301 oz Body Mass Index (BMI) 18.3 Intake & Output: Intake and Output for Last 24 Hours 08/28/23 08/29/23 08/30/23 23:59 23:59 23:59 Intake Total 1447.92 / 1597.92 1150 / 1150 Output Total 300 / 900 850 / 850 Balance 1147.92 / 697.92 300 / 300 Medical Nutrition Assessment Dietitian: Malnutrition Criteria Met Start: 08/30/23 11:40 Freq: Status: Active Protocol: Document 08/30/23 12:12 RMA (Rec: 08/30/23 12:12 RMA [id number]) Nutrition Malnutrition Evidence of Malnutrition Exists Yes Malnutrition (severe): Chronic,Social/Behavioral/ Environmental Evidenced By Suboptimal Energy Intake ( Severe),Weight Loss (Severe), Physical Changes (Severe) Clinical Problem Chronic Disease or Condition Related Malnutrition Etiology Severe protein-calorie malnutrition in the context of chronic disease and social circumstance related to inadequate oral intake and ETOH abuse Signs/Symptoms as evidenced by BMI 18.4, approximately 19-20% unintentional weight loss x 1 year, PO meeting less than 50% estimated nutrition needs x 6 -12 months, severe muscle wasting and fat depletion in clavicle, temporal region, arms and legs and poor PO at meals since admit <25% meals Status Active Problem Recommendation Dietitian Recommendations/Changes Will continue liberalized regular diet and encourage PO at meals; will adjust food consistency to [id number] per pt request for softer foods. Will d/c ensure plus HP with medpass as pt is refusing. Will add chocolate magic cup milkshakes with lunch and dinner as tolerated. Adjust ONS as needed to optimize oral intake. Trend weight as available as PO adequacy established with meals. Lab / Micro Data 08/29/23 14:45 08/30/23 06:41 Labs: Laboratory Results - last 24 hr 08/29/23 14:45: WBC 4.6, RBC 4.40 L, Hgb 14.2, Hct 39.7 L, MCV 90.2, MCH 32.3 H,MCHC 35.8, RDW Std Deviation 45.4 H, RDW Coeff of Yousuf 13.8, Plt Count 49 L*, MPV11.9, Immature Gran % (Auto) 0.900, Neut % (Auto) 69.9, Lymph % (Auto) 12.1 L, [place] % (Auto) 16.5 H, Eos % (Auto) 0.2, Baso % (Auto) 0.4, Absolute Neuts (auto)3.2, Absolute Lymphs (auto) 0.56 L, Nucleated RBC % 0, Differential Comment SCANNED, Diff Path Review Reviewed, Platelet Estimate MKD DEC, PT 12.5, INR 0.9,Sodium 131 L, Potassium 3.6, Chloride 98, Carbon Dioxide 24.0, Anion Gap 9, BUN 5 L, Creatinine 0.64 L, Estim Creat Clear Calc 86.07, Est GFR (MDRD) Af Amer 162, Est GFR (MDRD) Non-Af 134, BUN/Creatinine Ratio 7.8 L, Glucose 85, Calcium 8.7, Total Bilirubin 1.30 H, AST 167 H, ALT 106 H, Alkaline Phosphatase 130 H, Total Creatine Kinase 1577 H, Total Protein 7.0, Albumin 3.4, Globulin 3.6, Albumin/Globulin Ratio 0.9 08/29/23 14:51: Urine Color Yellow, Urine Clarity Sl. Cloudy, Urine pH 7.0, Ur Specific [place] 1.005, Urine Protein Negative, Urine Glucose (UA) Normal, UrineKetones 15 H, Urine Occult Blood 10 H, Urine Nitrite Negative, Urine Bilirubin Negative, Urine Urobilinogen 1 H, Ur Leukocyte Esterase Negative, Urine RBC 0-5 SEEN, Urine WBC 0 SEEN, Ur Squamous Epith Cells 0 SEEN, Urine Bacteria 0 SEEN, Urine Mucus 0 SEEN, Urine Opiates Screen NEGATIVE, Urine Methadone Screen NEGATIVE, Ur Barbiturates Screen NEGATIVE, Ur Phencyclidine Scrn NEGATIVE, Ur Amphetamines Screen NEGATIVE, MDMA (Ecstasy) Screen NEGATIVE, U Benzodiazepines Scrn NEGATIVE, Urine Cocaine Screen NEGATIVE, U Cannabinoids Screen NEGATIVE, UrDrug Screen Comment 08/30/23 06:41: Sodium 136, Potassium 3.8, Chloride 108 H, Carbon Dioxide 24.0, Anion Gap 4 L, BUN 9, Creatinine 0.76, Estim Creat Clear Calc 86.98, Est GFR (MDRD) Af Amer 133, Est GFR (MDRD) Non-Af 110, BUN/Creatinine Ratio 11.9, Glucose 121 H, Calcium 7.9 L, Total Bilirubin 1.20 H, AST 117 H, ALT 85 H, Alkaline Phosphatase 100, Total Protein 5.8 L, Albumin 2.7 L, Globulin 3.1, Albumin/Globulin Ratio 0.9 Radiography Diagnostic Testing: Radiology Impression Lumbar Spine CT 08/29/23 14:32 IMPRESSION: 1. Acute high-grade compression fracture of the T12 vertebral body, but with mild retropulsion of the cortex. A focal kyphotic deformity is present at the T11-T12 level due to loss of T12 vertebral body height. No central canal compromise is present, however may consider consulting with interventional radiology or the spine service for possible kyphoplasty given the focal deformity. 2. Multilevel degenerative changes, as described above. Electronically Signed: Og Benavides MD at 15:23 EST , Chest X-Ray 08/29/23 15:06 IMPRESSION: 1. No demonstrated consolidation or infiltrates or pleural effusion. Mild cystic emphysematous changes and hyperinflation of both lungs noted. 2. The patient has an acute T12 vertebral body compression deformity not visualized by plain film was seen on the CT of the lumbar spine performed on the same day. Electronically Signed: Og Benavides MD at 15:25 EST , Brain CT 08/29/23 15:12 IMPRESSION: 1. Chronic involutional changes of the brain. Electronically Signed: Og Benavides MD at 15:31 EST , Physical Exam Narrative Seen and examined. Patient had thorough cleaning and looks better. Has multiple bruises and scabs and excoriations all over the skin. Has shaking but looks better than yesterday. Complain of lower thoracic upper lumbar back pain. Physical exam General: Awake, oriented x 3. Cooperative. In moderate pain HEENT: Atraumatic, PERRLA, EOMI, Normocephalic Oral: Oral mucosa very dry. No Gingival or Mucosal Lesions/ Ulcerations Neck: Supple, No JVD, Negative Carotid Bruits Chest wall/Lungs: Air entry diminished in bilateral lung bases. No crepitation/rhonchi Cardiovascular: Regular rate, Regular Rhythm, Normal S1, Normal S2, No M/G/R Abdomen: Bowel Sounds Present, Soft, Non Tender, Non-Distended : Spontaneously voiding urine. No dysuria. No renal angle tenderness. No suprapubic tenderness. Extremities: No edema, Capillary Refill Less than 3 Seconds Skin: Bruise, scabs, ecchymosis and excoriations all over the body including knees and lower extremities Musculoskeletal: Tenderness present to lower extremities. Muscle strength 4/5 at knees and hip joints but painful and tender. Spine: Patient could not roll on the sides or back because of pain. Tenderness present on T11, T12 to L1 Neurological: Cranial nerves II-XII grossly intact, DTR 2+/4. Sensation aroundperineal region and testicles. Does not seem cauda equina syndrome. Psych/Mental Status: Normal Affect, Appropriate. Assessment & Plan Assessment/Plan (1) Acute hyperactive alcohol withdrawal delirium: (2) Recurrent falls: PLAN: Plan This is a 63-year-old gentleman being admitted for acute alcohol withdrawal and severe back pain with multiple falls on single day. Patient was very resistant and opposed to EMS for coming to ED. 1. Acute alcohol withdrawal syndrome with history of chronic alcohol use, dependence and tolerance: Patient is being admitted to MedSurg floor. Patient on phenobarbital based order set along with other adjunctive medications gabapentin, Bentyl, Vistaril, clonidine, Klonopin as needed for alcohol withdrawal symptom control. Patient is on thiamine and folate acid. CIWA monitor. manager business planning consulted. 08/30: Overall withdrawal symptoms are better. No seizure. No hallucination. Utox screen negative. 0. 2. Acute on recurrent fall probably due to chronic alcohol use, generalized weakness, disequilibrium with mild rhabdomyolysis: PT and OT ordered. UA showsoccult blood, RBC 0-5 cells and probably due to myoglobinuria. WBC 0. 3. Acute compression fracture of T12 vertebral body: Patient has tenderness over T12 vertebra but he can lift both lower extremities, muscle strength 4/5 with intact perineal sensation, voiding urine, cauda equina symptoms unlikely. Lumbar spine CT shows acute high-grade compression fracture of T12 vertebral body with mild retropulsion of the cortex. No central canal compromise. Loss of T12 vertebral body height with focal kyphotic deformity. When patient is outof alcohol withdrawal can have evaluation for kyphoplasty but currently out of the question. 4. Most likely chronic hyponatremia from beer potomania associated with low solute intake: Patient has not been eating or drinking for 4 days. Gradual bringing up sodium to around 137 138. Last sodium was 139 in August 2021. Patient had 1 L of normal saline in ED. 08/30 patient is well-hydrated. 5. Acute/subacute alcoholic hepatitis: Liver chemistry shows TB 1.3, ALT AST 106, 167 respectively, alkaline phosphatase 130. CCK 1577 showing mild rhabdomyolysis. Continue IV fluid normal saline. Patient does not have right upper quadrant abdominal pain or tenderness. Severe hypoalbuminemia from chronic alcohol use. 6. Multiple subcutaneous bruise/wound and ecchymosis: Patient has thrombocytopenia 49,000. Previous platelet count was 314,000 in August 2021. INR 0.9. DVT prophylaxis: Moderate to high risk. Pharmacological prophylaxis contraindicated due to multiple bruises and wounds and severe thrombocytopenia. Bilateral SCDs Living will/advanced directive/end of life care: Patient does not have living will or advanced directive. 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 After discussion of benefits/risks procedures involved with full code,DNR CC arrest and DNR CC, the patient opted for DNR CC arrest with no intubation. Patient states when my and time comes, let me go. Patient doesn't want artificial life support including intubation, tube feed, ventilator and/chest compression, central venous catheter, vasopressor and DC shock if needed Clinical Impression(s) from Imaging Studies Lumbar Spine CT 08/29/23 14:32 IMPRESSION: 1. Acute high-grade compression fracture of the T12 vertebral body, but with mild retropulsion of the cortex. A focal kyphotic deformity is present at the T11-T12 level due to loss of T12 vertebral body height. No central canal compromise is present, however may consider consulting with interventional radiology or the spine service for possible kyphoplasty given the focal deformity. 2. Multilevel degenerative changes, as described above. Chest X-Ray 08/29/23 15:06 IMPRESSION: 1. No demonstrated consolidation or infiltrates or pleural effusion. Mild cystic emphysematous changes and hyperinflation of both lungs noted. 2. The patient has an acute T12 vertebral body compression deformity not visualized by plain film was seen on the CT of the lumbar spine performed on the same day. Brain CT 08/29/23 15:12 IMPRESSION: 1. Chronic involutional changes of the brain. Electronically Signed: Og Benavides MD at 15:31 EST Reading Location ID and State: [address] [place] [address] , Service support , Charges/Coding Visit Charges Inpatient E&M: 26205 Subs Hosp L2 08/30/23 1356 <Electronically signed by Jarret Romero MD> Cosigner Signature (if applicable): CC: ~ Signed [facility] Work Phone: 1(923) 140-458902-26-2024 Discharge summary Author Ida Blanca [facility] August 29, 2023 9:18pm Note Date/Time August 29, 2023 2:37pm [facility] Medical Records Department [address] [place] [address] Emergency Department Summary 08/29/23 MR#: [id number] Acct: [id number] Name: JULI DAVIDSON Rep #:[id number] : 1960 63 From: Ida Blanca MD PCP: Care Physician,No Primary Status :ADM IN [place] [facility] [id number] <Statement entered by Ida Blanca MD - 08/29/23 21:18> I have personally performed a face to face assessment of the patient and have reviewed the KWABENA Note. Patient presents via EMS after falls at home. Patient reports that he believes he had the flu a couple weeks ago. Since that time has been weak and had multiple falls. He does have a history of alcoholism and admits he has not freddie doctor in quite some time. He reportedly fell last evening and laid on the floor until he was able to make it to a phone today to call his family. He is complaining of low back pain. Patient lying in bed no acute distress. He is unkempt. Head and neck examination was no obvious external sign of trauma. Heart is regular rate and rhythm. Lung sounds are clear. Abdomen is soft and nontender. Neuro exam reveals equal movement of all extremities without difficulty. Lab work obtained. Patient has mild hyponatremia. He does have evidence of thrombocytopenia. CT scans reviewed and patient does have a compression fracture at T12. This appears to be acute. Patient given analgesics here. IV fluids initiated. He is discussed with hospitalist as he has not been able to get up and care for himself and now does have evidence of a acute fracture. HPI HPI - Fall History of Present Illness Chief Complaint: Fall Narrative Narrative: 63-year-old male presents via EMS after after he fell this morning and could notget up. He states he was on the floor for hours and crawled to the couch and called his niece who called EMS. He is fallen very frequently since he had the flu 3 weeks ago. He states he drinks 12 beers a day. He urinates into a bucketnext to him so he does not have to get up very much. Today he complains of low back pain from the fall. He denies hitting his head. He is on no medications and states he has not seen a doctor in 2 years. He denies chest or abdominal pain. No nausea or vomiting. No extremity pain. [facility] Medical History unable to obtain Home Medications NK 08/29/23 [History Last Taken Unknown] Allergy/AdvReac Type Severity Reaction Status Date / Time No Known Allergies Allergy Verified 08/29/23 14:24 Social History Smoking Status: Unknown if ever smoked ROS ROS ED ROS Narrative Constitutional: Negative for fever, chills, malaise. CVS: Negative for chest pain, syncope. Respiratory: Negative for shortness of breath. GI: Negative for abdominal pain, nausea, vomiting. Neuro: Negative for headache, motor/sensory dysfunction. EXAM Physical Exam Narrative Exam Narrative: CONST: Patient sitting in no acute distress. Disheveled, smells of urine. EYES: Normal inspection. PERRL, EOMI. Head: Normocephalic atraumatic. NECK: Normal inspection. RESP: No respiratory distress, CTAB. CVS: Regular rate and rhythm, no murmur, no gallop. ABD: Soft and nontender, no guarding or rebound, nondistended. Back: Normal inspection, bruising and tenderness diffusely over the lumbar spine. SKIN: Color normal, no rash, warm, dry, intact. EXTREMITIES: Normal appearance, full ROM upper and lower extremities, 5/5 strength, normal sensation, 2+ radial DP pulses NEURO: Oriented x4. PSYCH: Normal affect. Const Vital Signs: 08/29/23 14:24 08/29/23 14:57 Temperature 98.1 F Temperature Source Oral Pulse Rate 112 H Respiratory Rate 20 H Respiratory Effort Normal Blood Pressure 151/105 H Blood Pressure Mean 120 Pulse Ox 99 Oxygen Delivery Method Room Air Room Air MDM MDM MDM Narrative Medical decision making narrative: History gathered from: Patient and EMS Differential: Recurrent falls, back contusion, fracture, electrolyte abnormality Patient has had multiple falls over the last 3 weeks. He is alcoholic. Today fell and was on the ground for multiple hours and complains of low back pain. He denies hitting his head. He is disheveled and smells of urine. He does not look sick or toxic. BP is 151/105, HR 112, otherwise normal vital signs. He has no signs of head injury. Heart is regular rate and rhythm, coarse lung sounds from likely COPD, abdomen soft and nontender. He has bruising over the lumbar and flank area and lower lumbar tenderness. He has chronic bruising of his extremities but no acute injuries. He is moving extremities to full range of motion and distal pulses are intact. Labs show normal white count and hemoglobin and thrombocytopenia at 49. This explains his chronic bruising but he has no evidence of active bleeding. Sodium is 131. CK is 1577 with normal renal function. There is mild transaminitis from chronic alcohol use. He has no abdominal pain or tenderness. CT brain shows no acute findings. CT lumbar spine shows high-grade T12 compression fracture with mild retropulsion but no central canal compromise. His lower extremity MSPs are intact. Patient's pain was treated with IV morphine and Zofran. Case was discussed with hospitalist foradmission who will order alcohol prophylaxis. Lab Data Attestation: I reviewed the patient's lab results. Labs: Laboratory Results - last 24 hr 08/29/23 08/29/23 14:45 14:51 WBC 4.6 RBC 4.40 L Hgb 14.2 Hct 39.7 L MCV 90.2 MCH 32.3 H MCHC 35.8 RDW Std Deviation 45.4 H RDW Coeff of Yousuf 13.8 Plt Count 49 L* MPV 11.9 Immature Gran % (Auto) 0.900 Neut % (Auto) 69.9 Lymph % (Auto) 12.1 L [place] % (Auto) 16.5 H Eos % (Auto) 0.2 Baso % (Auto) 0.4 Absolute Neuts (auto) 3.2 Absolute Lymphs (auto) 0.56 L Nucleated RBC % 0 Differential Comment SCANNED Diff Path Review May foll Platelet Estimate MKD DEC Sodium 131 L Potassium 3.6 Chloride 98 Carbon Dioxide 24.0 Anion Gap 9 BUN 5 L Creatinine 0.64 L Estim Creat Clear Calc 86.07 Est GFR (MDRD) Af Amer 162 Est GFR (MDRD) Non-Af 134 BUN/Creatinine Ratio 7.8 L Glucose 85 Calcium 8.7 Total Bilirubin 1.30 H AST 167 H ALT 106 H Alkaline Phosphatase 130 H Total Creatine Kinase 1577 H Total Protein 7.0 Albumin 3.4 Globulin 3.6 Albumin/Globulin Ratio 0.9 Urine Color Yellow Urine Clarity Sl. Cloudy Urine pH 7.0 Ur Specific [place] 1.005 Urine Protein Negative Urine Glucose (UA) Normal Urine Ketones 15 H Urine Occult Blood 10 H Urine Nitrite Negative Urine Bilirubin Negative Urine Urobilinogen 1 H Ur Leukocyte Esterase Negative Urine RBC 0-5 SEEN Urine WBC 0 SEEN Ur Squamous Epith Cells 0 SEEN Urine Bacteria 0 SEEN Urine Mucus 0 SEEN Radiography Diagnostic Testing: Clinical Impression(s) from Imaging Studies Lumbar Spine CT 08/29/23 14:32 IMPRESSION: 1. Acute high-grade compression fracture of the T12 vertebral body, but with mild retropulsion of the cortex. A focal kyphotic deformity is present at the T11-T12 level due to loss of T12 vertebral body height. No central canal compromise is present, however may consider consulting with interventional radiology or the spine service for possible kyphoplasty given the focal deformity. 2. Multilevel degenerative changes, as described above. Electronically Signed: Og Benavides MD at 15:23 EST , Chest X-Ray 08/29/23 15:06 IMPRESSION: 1. No demonstrated consolidation or infiltrates or pleural effusion. Mild cystic emphysematous changes and hyperinflation of both lungs noted. 2. The patient has an acute T12 vertebral body compression deformity not visualized by plain film was seen on the CT of the lumbar spine performed on the same day. Electronically Signed: Og Benavides MD at 15:25 EST , Brain CT 08/29/23 15:12 IMPRESSION: 1. Chronic involutional changes of the brain. Electronically Signed: Og Benavides MD at 15:31 EST , ED attending interpretation of 1-view chest x-ray shows normal heart size, no displaced rib fracture or pneumothorax. EKG Initial EKG: Attestation: I personally reviewed and interpreted this EKG as follows: Interpretation: Sinus Rhythm and No Acute Injury Pattern Comments: Normal sinus rhythm at 92 bpm Normal intervals, no acute ischemic changes Discharge Plan Triage Chief Complaint: Fall ED Midlevel Provider: Li Ashley ED Provider: Ida Blanca Dx/Rx/DC Orders Clinical Impression: Recurrent falls, Alcohol abuse, Thrombocytopenia, T12 compression fracture, Acute hyponatremia, Transaminitis Primary Care Provider: Care Physician,No Primary What to do if you have Problems For any increased pain, shortness of breath, bleeding, nausea or vomiting, chestpain, or any unexpected problems, contact your Primary Care Provider. Call [facility] ([phone]) or report to the closest Emergency Room. Call 911 if necessary. 08/29/232117 <Electronically signed by Ida Blanca MD> Cosigner Signature (if applicable): 08/29/23 9192 <Electronically signed by Li RESENDIZ> CC: No Primary Care Physician ~ Signed [facility] Work Phone: 1(715) 631-308802-26-2024 History and physical note Author Jarret Romero [facility] August 29, 2023 4:48pm Note Date/Time August 29, 2023 3:57pm [facility] Medical Records Department [address] [place] [id number] H&P Exam - Hospitalist 08/29/23 1557 MR#: [id number] Acct: [id number] Name: JULI DAVIDSON Rep #:[id number] : 1960 63 From: Jarret Lee PCP: Care Physician,No Primary Status :ADM IN [place] [facility] [id number] HPI - General General Date of Admission: 08/29/23 Date of Service: 08/29/23 Chief Complaint: Drinks heavy alcohol 12 bottles of beer every day. Shaking. Recurrent fall HPI Narrative JULI DAVIDSON, is a 63 M with history of chronic alcohol use and seizure 5 years ago came to ED after he had multiple falls after he had flu 3 weeks ago. Patient was brought to ED by EMS and found him laying on the couch with multiple beercans with bucket to pee because every time he gets up he falls. He has not eaten for 3 to 4 days. As per EMS, his whole living room in the house was upside down with blood on several wall and carpet, table not down to the ground and broken in the hallway. He send he drinks 12 beers of 12 ounces every day. He states that he drinks too much. He has bruises all over the body including knees and simply fell on his lower back. Patient also has acute on chronic lumbar back pain with radiation to both lower extremity. He states it goes all the way to the toes but history of migration of pain is uncertain because of history of alcohol use. Patient very dehydrated in ED and started on IV fluid normal saline. [facility] Medical History unable to obtain Home Medications NK 08/29/23 [History Last Taken Unknown] Allergy/AdvReac Type Severity Reaction Status Date / Time No Known Allergies Allergy Verified 08/29/23 14:24 Social History Smoking Status: Unknown if ever smoked ROS ROS Narrative Complete 14 system ROS as patient is shaking, in alcohol withdrawal. Constitutional: Reports fatigue and weakness. Could not get up or walk. No fever. HEENT: Reports systems reviewed and no addt'l complaints, except as documented Respiratory/Chest: No acute shortness of breath or respiratory distress or wheezing. CVS: Denies chest pain pressure or tightness Gastrointestinal: Denies coffee ground emesis, hematemesis or vomiting Genitourinary: Denies burning urination or new urinary tract symptoms Musculoskeletal: Multiple falls every day as described in HPI. Pain over the back. Neurologic: Had alcohol-related seizure in the past skin: Multiple bruises all over the body Endocrinology: Reports systems reviewed and no addt'l complaints, except as documented Hematologic/Lymphatic: Reports systems reviewed and no addt'l complaints, exceptas documented Rest 14 ROS are negative except as mentioned in HPI Vital Signs Vital Signs Vital Signs: 08/29/23 14:24 08/29/23 14:57 Temperature 98.1 F Temperature Source Oral Pulse Rate 112 H Respiratory Rate 20 H Respiratory Effort Normal Blood Pressure 151/105 H Blood Pressure Mean 120 Pulse Ox 99 Oxygen Delivery Method Room Air Room Air Weight Weight: 150 lb 5.684 oz Body Mass Index (BMI) 23.5 Physical Exam Narrative General: Awake, oriented x 3. Cooperative. In pain HEENT: Atraumatic, PERRLA, EOMI, Normocephalic Oral: Oral mucosa very dry. No Gingival or Mucosal Lesions/ Ulcerations Neck: Supple, No JVD, Negative Carotid Bruits Chest wall/Lungs: Air entry diminished in bilateral lung bases. No crepitation/rhonchi Cardiovascular: Regular rate, Regular Rhythm, Normal S1, Normal S2, No M/G/R Abdomen: Bowel Sounds Present, Soft, Non Tender, Non-Distended : Spontaneously voiding urine. No dysuria. No renal angle tenderness. No suprapubic tenderness. Extremities: No edema, Capillary Refill Less than 3 Seconds Skin: Bruise, scabs, ecchymosis and open wounds all over the body including these Musculoskeletal: Tenderness present to lower extremities. Muscle strength 4/5 at knees and hip joints but painful and tender. Spine: Patient could not roll on the sides or back because of pain. Tenderness present on T12 to lumbar spine. Neurological: Cranial nerves II-XII grossly intact, DTR 2+/4. Sensation aroundperineal region and testicles. Psych/Mental Status: Normal Affect, Appropriate. Results Lab / Micro Data 08/29/23 14:45 08/29/23 14:45 Labs: Laboratory Results - last 24 hr 08/29/23 14:45: WBC 4.6, RBC 4.40 L, Hgb 14.2, Hct 39.7 L, MCV 90.2, MCH 32.3 H,MCHC 35.8, RDW Std Deviation 45.4 H, RDW Coeff of Yousuf 13.8, Plt Count 49 L*, MPV11.9, Immature Gran % (Auto) 0.900, Neut % (Auto) 69.9, Lymph % (Auto) 12.1 L, [place] % (Auto) 16.5 H, Eos % (Auto) 0.2, Baso % (Auto) 0.4, Absolute Neuts (auto)3.2, Absolute Lymphs (auto) 0.56 L, Nucleated RBC % 0, Differential Comment SCANNED, Diff Path Review November, Platelet Estimate MKD DEC, Sodium 131 L, Potassium 3.6, Chloride 98, Carbon Dioxide 24.0, Anion Gap 9, BUN 5 L, Creatinine 0.64 L, Estim Creat Clear Calc 86.07, Est GFR (MDRD) Af Amer 162, EstGFR (MDRD) Non-Af 134, BUN/Creatinine Ratio 7.8 L, Glucose 85, Calcium 8.7, Total Bilirubin 1.30 H, AST 167 H, ALT 106 H, Alkaline Phosphatase 130 H, Total Protein 7.0, Albumin 3.4, Globulin 3.6, Albumin/Globulin Ratio 0.9 08/29/23 14:51: Urine Color Yellow, Urine Clarity Sl. Cloudy, Urine pH 7.0, Ur Specific [place] 1.005, Urine Protein Negative, Urine Glucose (UA) Normal, UrineKetones 15 H, Urine Occult Blood 10 H, Urine Nitrite Negative, Urine Bilirubin Negative, Urine Urobilinogen 1 H, Ur Leukocyte Esterase Negative, Urine RBC 0-5 SEEN, Urine WBC 0 SEEN, Ur Squamous Epith Cells 0 SEEN, Urine Bacteria 0 SEEN, Urine Mucus 0 SEEN Imaging Radiology Impression Lumbar Spine CT 08/29/23 14:32 IMPRESSION: 1. Acute high-grade compression fracture of the T12 vertebral body, but with mild retropulsion of the cortex. A focal kyphotic deformity is present at the T11-T12 level due to loss of T12 vertebral body height. No central canal compromise is present, however may consider consulting with interventional radiology or the spine service for possible kyphoplasty given the focal deformity. 2. Multilevel degenerative changes, as described above. Electronically Signed: Og Benavides MD at 15:23 EST , Chest X-Ray 08/29/23 15:06 IMPRESSION: 1. No demonstrated consolidation or infiltrates or pleural effusion. Mild cystic emphysematous changes and hyperinflation of both lungs noted. 2. The patient has an acute T12 vertebral body compression deformity not visualized by plain film was seen on the CT of the lumbar spine performed on the same day. Electronically Signed: Og Benavides MD at 15:25 EST , Brain CT 08/29/23 15:12 IMPRESSION: 1. Chronic involutional changes of the brain. Electronically Signed: Og Benavides MD at 15:31 EST , Assessment & Plan Assessment/Plan (1) Acute hyperactive alcohol withdrawal delirium: (2) Recurrent falls: PLAN: Plan This is a 63-year-old gentleman being admitted for acute alcohol withdrawal and severe back pain with multiple falls on single day. Patient was very resistant and opposed to EMS for coming to ED. 1. Acute alcohol withdrawal syndrome with history of chronic alcohol use, dependence and tolerance: Patient is being admitted to MedSurg floor. Patient on phenobarbital based order set along with other adjunctive medications gabapentin, Bentyl, Vistaril, clonidine, Klonopin as needed for alcohol withdrawalsymptom control. Patient is on thiamine and folate acid. CIWA monitor. manager business planning consulted. 2. Acute on recurrent fall probably due to chronic alcohol use, generalized weakness, disequilibrium: PT and OT ordered. Vitamin B12, and folate ordered. 3. Acute compression fracture of T12 vertebral body: Patient has tenderness over T12 vertebra but he can lift both lower extremities, muscle strength 4/5 with intact perineal sensation, voiding urine. Lumbar spine CT shows acute high-grade compression fracture of T12 vertebral body with mild retropulsion of the cortex. No central canal compromise. Loss of T12 vertebral body height with focal kyphotic deformity. When patient is out of alcohol withdrawal can have evaluation for kyphoplasty but currently out of the question. 4. Most likely chronic hyponatremia from beer potomania associated with low solute intake: Patient has not been eating or drinking for 4 days. Gradual bringing up sodium to around 137 138. Last sodium was 139 in August 2021. Patient had 1 L of normal saline in ED. Ringer lactate ordered. 5. Acute/subacute alcoholic hepatitis: Liver chemistry shows TB 1.3, ALT AST 106, 167 respectively, alkaline phosphatase 130. CCK 1577 showing mild rhabdomyolysis. Continue IV fluid normal saline. Patient does not have right upper quadrant abdominal pain or tenderness. 6. Multiple subcutaneous bruise/wound and ecchymosis: Patient has thrombocytopenia 49,000. Previous platelet count was 314,000 in August 2021. INR 0.9. DVT prophylaxis: Moderate to high risk. Pharmacological prophylaxis contraindicated due to multiple bruises and wounds and severe thrombocytopenia. Bilateral SCDs Living will/advanced directive/end of life care: Patient does not have living will or advanced directive. 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 After discussion of benefits/risks procedures involved with full code,DNR CC arrest and DNR CC, the patient opted for DNR CC arrest with no intubation. Patient states when my and time comes, let me go. Patient doesn't want artificial life support including intubation, tube feed, ventilator and/chest compression, central venous catheter, vasopressor and DC shock if needed Total time spent in [id number] encounter in discussion of advanced directive 17 minutes. Laboratory Results 08/29/23 14:45: WBC 4.6, RBC 4.40 L, Hgb 14.2, Hct 39.7 L, MCV 90.2, MCH 32.3 H,MCHC 35.8, RDW Std Deviation 45.4 H, RDW Coeff of Yousuf 13.8, Plt Count 49 L*, MPV11.9, Immature Gran % (Auto) 0.900, Neut % (Auto) 69.9, Lymph % (Auto) 12.1 L, [place] % (Auto) 16.5 H, Eos % (Auto) 0.2, Baso % (Auto) 0.4, Absolute Neuts (auto)3.2, Absolute Lymphs (auto) 0.56 L, Nucleated RBC % 0, Differential Comment SCANNED, Diff Path Review November, Platelet Estimate MKD DEC, PT 12.5, INR 0.9, Sodium 131 L, Potassium 3.6, Chloride 98, Carbon Dioxide 24.0, Anion Gap 9, BUN5 L, Creatinine 0.64 L, Estim Creat Clear Calc 86.07, Est GFR (MDRD) Af Amer 162, Est GFR (MDRD) Non-Af 134, BUN/Creatinine Ratio 7.8 L, Glucose 85, Calcium 8.7, Total Bilirubin 1.30 H, AST 167 H, ALT 106 H, Alkaline Phosphatase 130 H, Total Creatine Kinase 1577 H, Total Protein 7.0, Albumin 3.4, Globulin 3.6, Albumin/Globulin Ratio 0.9 08/29/23 14:51: Urine Color Yellow, Urine Clarity Sl. Cloudy, Urine pH 7.0, Ur Specific [place] 1.005, Urine Protein Negative, Urine Glucose (UA) Normal, UrineKetones 15 H, Urine Occult Blood 10 H, Urine Nitrite Negative, Urine Bilirubin Negative, Urine Urobilinogen 1 H, Ur Leukocyte Esterase Negative, Urine RBC 0-5 SEEN, Urine WBC 0 SEEN, Ur Squamous Epith Cells 0 SEEN, Urine Bacteria 0 SEEN, Urine Mucus 0 SEEN, Urine Opiates Screen NEGATIVE, Urine Methadone Screen NEGATIVE, Ur Barbiturates Screen NEGATIVE, Ur Phencyclidine Scrn NEGATIVE, Ur Amphetamines Screen NEGATIVE, MDMA (Ecstasy) Screen NEGATIVE, U Benzodiazepines Scrn NEGATIVE, Urine Cocaine Screen NEGATIVE, U Cannabinoids Screen NEGATIVE, UrDrug Screen Comment Clinical Impression(s) from Imaging Studies Lumbar Spine CT 08/29/23 14:32 IMPRESSION: 1. Acute high-grade compression fracture of the T12 vertebral body, but with mild retropulsion of the cortex. A focal kyphotic deformity is present at the T11-T12 level due to loss of T12 vertebral body height. No central canal compromise is present, however may consider consulting with interventional radiology or the spine service for possible kyphoplasty given the focal deformity. 2. Multilevel degenerative changes, as described above. Chest X-Ray 08/29/23 15:06 IMPRESSION: 1. No demonstrated consolidation or infiltrates or pleural effusion. Mild cystic emphysematous changes and hyperinflation of both lungs noted. 2. The patient has an acute T12 vertebral body compression deformity not visualized by plain film was seen on the CT of the lumbar spine performed on the same day. Brain CT 08/29/23 15:12 IMPRESSION: 1. Chronic involutional changes of the brain. Electronically Signed: Og Benavides MD at 15:31 EST Reading Location ID and State: [address] [place] [address] , Service support , Charges/Coding Visit Charges Inpatient E&M: 69249 Init Hosp L3 Procedures Hospitalists Procedures: 20051 Advncd Care Plan 30 Min 08/29/23 1648 <Electronically signed by Jarret Romero MD> Cosigner Signature (if applicable): CC: Dr. Jarret Romero MD; No Primary Care Physician~ Signed [facility] Work Phone: Evaluation + Plan note Future Appointments Appointment Date:06/23/2021 08:00:00 AM Scheduled Provider:VEL KOCH APRN, CNP Location:[facility] Appointment Type:PC OV Follow Up Future Scheduled Tests Radiology* US Breast Bilateral Limited 06/09/21 * MA Mammo Diagnostic Bilateral w/Kyree 06/03/21 [facility] Evaluation + Plan note Future Appointments Appointment Date:07/09/2021 03:00:00 PM Scheduled Provider: Location:[facility] [employer] Appointment Type:CV EXCELLENCE MANAGER Appointment Date:09/11/2021 09:30:00 AM Scheduled Provider: Location:[facility] Appointment Type:PC Nurse Lab Appointment Date:09/22/2021 08:20:00 AM Scheduled Provider:VEL KOCH APRN, CNP Location:[facility] Appointment Type:PC OV Future Scheduled Tests Laboratory* Folate Level 09/21/21 * Vitamin B12 Level 09/21/21 * Complete Blood Count 09/21/21 * Lipid Profile 09/21/21 * Vitamin D Level 09/21/21 * Complete Metabolic Panel 09/21/21 Radiology* US Breast Bilateral Limited 06/09/21 * MA Mammo Diagnostic Bilateral w/Kyree 06/03/21 [facility] Evaluation + Plan note Future Appointments Appointment Date:09/17/2021 02:00:00 PM Scheduled Provider: Location:[facility] [employer] Appointment Type:CV OV Appointment Date:09/22/2021 08:20:00 AM Scheduled Provider:VEL KOCH APRN, CNP Location:[facility] Appointment Type:PC OV Future Scheduled Tests Laboratory* C-Reactive Protein 08/20/21 * Sedimentation Rate Automated 08/20/21 [facility] Evaluation + Plan note Future Appointments Appointment Date:10/22/2021 01:30:00 PM Scheduled Provider: Location:[facility] [employer] Appointment Type:CV OV Appointment Date:12/10/2021 09:00:00 AM Scheduled Provider: Location:[facility] Appointment Type:PC Nurse Lab Appointment Date:12/24/2021 09:00:00 AM Scheduled Provider:VEL KOCH APRN, CNP Location:[facility] Appointment Type:PC OV Follow Up Appointment Date:03/18/2022 09:45:00 AM Scheduled Provider: Location:[facility] Appointment Type:PC Nurse Lab Appointment Date:03/25/2022 09:00:00 AM Scheduled Provider:VEL KOCH APRN, CNP Location:[facility] Appointment Type:PC OV Follow Up Future Scheduled Tests Laboratory* C-Reactive Protein 08/20/21 * Prostate Specific Antigen 03/25/22 * Lipid Profile 03/25/22 * Microalbumin Level Urine 03/25/22 * Sedimentation Rate Automated 08/20/21 * Vitamin D Level 12/23/21 * Vitamin D Level 03/25/22 * Complete Metabolic Panel 03/25/22 [facility] Evaluation note* Diagnosis Onset Date Resolution Status Acute hyponatremia acute Alcohol abuse acute Recurrent falls acute Severe malnutrition acute T12 compression fracture acu te Thrombocytopenia acute Transaminitis acute Acute hyperactive alcohol withdrawal delirium resolved [facility] Work Phone: Evaluation note* Diagnosis Onset Date Resolution Status Severe malnutrition acute Acute hyperactive alcohol withdrawal delirium resolved Acute hyponatremia resolved Transaminitis resolved Debility acute Fall acute Hyponatremia acute Rhabdomyolysis acute [facility] Work Phone: Evaluation note* Diagnosis Onset Date Resolution Status Severe malnutrition acute Acute hyperactive alcohol withdrawal delirium resolved Acute hyponatremia resolved Transaminitis resolved Debility acute Fall resolved Hyponatremia resolved Rhabdomyolysis resolved [facility] Work Phone: Hospital course Narrative No data available for this section [facility] Hospital Discharge instructions No data available for this section [facility] Progress note No data available for this section [facility] Reason for referral (narrative)No reason for referral [facility] Work Phone: Summary Purpose Family History No Family History Records FoundNo Family History Records Found Advance Directives No Advanced Directives Records Found Advance Directive Response Recorded Date/ Time Living Will No August 29 024 5:16pm Power of Plastic Design Applier No August 29, 2023 5:16pm Advance Directive Response Recorded Date/ Time Living Will No September 07, 2023 4:11pm Power of Plastic Design Applier No September 06 4:11pm Advance Directive Response Recorded Date/ Time Living Will No July 02 024 10:34am Do you have a Healthcare Power of Plastic Design Applier? No July 02, 2024 10:34am Advance Directive Response Recorded Date/ Time Do you have a Healthcare Power of Plastic Design Applier? No November 27, 2024 2:17pm Chief Complaint and Reason for Visit Chief Complaint ALCOHOL WITHDRAWAL S YND ALCOHOL WITHDRAWAL SYND ALCOHOL WITHDRAWAL SYND ALCOHOL WITHDRAWAL SYND ALCOHOL WITHDRAWAL SYND ALCOHOL WITHDRAWAL SYND ALCOHOL WITHDRAWAL SYND ALCOHOL WITHDRAWAL SYND ALCOHOL WITHDRAWAL SYND Reason for Visit Acute hyponatremia Alcohol abuse Recurrent falls Severe malnutrition T12 compression fracture Thrombocytopenia Transaminitis Acute hyperactive alcohol withdrawal delirium Chief Complaint ALCOHOL WITHDRAWAL S YND ALCOHOL WITHDRAWAL SYND ALCOHOL WITHDRAWAL SYND ALCOHOL WITHDRAWAL SYND ALCOHOL WITHDRAWAL SYND ALCOHOL WITHDRAWAL SYND ALCOHOL WITHDRAWAL SYND ALCOHOL WITHDRAWAL SYND ALCOHOL WITHDRAWAL SYND DEBILITY WITH MULTIPLE FALLS Reason for Visit Severe malnutrition Acute hyperactive alcohol withdrawal delirium Acute hyponatremia Transaminitis Debility Fall Hyponatremia Rhabdomyolysis Chief Complaint ALCOHOL WITHDRAWAL S YND ALCOHOL WITHDRAWAL SYND ALCOHOL WITHDRAWAL SYND ALCOHOL WITHDRAWAL SYND ALCOHOL WITHDRAWAL SYND ALCOHOL WITHDRAWAL SYND ALCOHOL WITHDRAWAL SYND ALCOHOL WITHDRAWAL SYND ALCOHOL WITHDRAWAL SYND DEBILITY WITH MULTIPLE FALLS NICOTINE DEPENDENCE WEDGE COMPRESSION FRACTURE OF T11-T12 [place]BRA Reason for Visit Severe malnutrition Acute hyperactive alcohol withdrawal delirium Acute hyponatremia Transaminitis Debility Fall Hyponatremia Rhabdomyolysis Chief Complaint ALCOHOL WITHDRAWAL S YND ALCOHOL WITHDRAWAL SYND ALCOHOL WITHDRAWAL SYND ALCOHOL WITHDRAWAL SYND ALCOHOL WITHDRAWAL SYND ALCOHOL WITHDRAWAL SYND ALCOHOL WITHDRAWAL SYND ALCOHOL WITHDRAWAL SYND ALCOHOL WITHDRAWAL SYND DEBILITY WITH MULTIPLE FALLS NICOTINE DEPENDENCE WEDGE COMPRESSION FRACTURE OF T11-T12 VERTEBRA PRE SURGERY INJECTION PLANNING Reason for Visit Severe malnutrition Acute hyperactive alcohol withdrawal delirium Acute hyponatremia Transaminitis Debility Fall Hyponatremia Rhabdomyolysis Chief Complaint Admit Date chest pain July 02, 2024 9:17am LT HERNIPARESIS July 30, 2024 2 :51pm BILAT UPPER HAND NUMBNESS August 22, 2024 9:51am BILAT UPPER HAND NUMBNESS August 22, 2024 12:02pm ABD PAIN August 27, 2024 2:27pm Chronic Pancreatitis September 21, 2024 12 :28pm CERVICAL RAD September 21, 2024 1:2 2pm CONCERN FOR COMP FX September 26, 2024 11: 06am Reason for Visit Admit Date Chronic pancreatitis September 21, 2024 12 :28pm Chief Complaint Admit Date chest pain July 02, 2024 9:17am LT HERNIPARESIS July 30, 2024 2 :51pm BILAT UPPER HAND NUMBNESS August 22, 2024 9:51am BILAT UPPER HAND NUMBNESS August 22, 2024 12:02pm ABD PAIN August 27, 2024 2:27pm Chronic Pancreatitis September 21, 2024 12 :28pm CERVICAL RAD September 21, 2024 1:2 2pm CONCERN FOR COMP FX September 26, 2024 11: 06am AAA October 15, 2024 7:5 4am Chief Complaint Admit Date LT HERNIPARESIS July 30, 2024 2 :51pm BILAT UPPER HAND NUMBNESS August 22, 2024 9:51am BILAT UPPER HAND NUMBNESS August 22, 2024 12:02pm ABD PAIN August 27, 2024 2:27pm Chronic Pancreatitis September 21, 2024 12 :28pm CERVICAL RAD September 21, 2024 1:2 2pm CONCERN FOR COMP FX September 26, 2024 11: 06am AAA October 15, 2024 7:5 4am GASTRIC ULCER, ABD PAIN November 06, 2024 7: 52am Chief Complaint Admit Date BILAT UPPER HAND NUMBNESS August 22, 2024 9:51am BILAT UPPER HAND NUMBNESS August 22, 2024 12:02pm ABD PAIN August 27, 2024 2:27pm Chronic Pancreatitis September 21, 2024 12 :28pm CERVICAL RAD September 21, 2024 1:2 2pm CONCERN FOR COMP FX September 26, 2024 11: 06am AAA October 15, 2024 7:5 4am AAA SCREENING October 15, 2024 8:0 2am GASTRIC ULCER, ABD PAIN November 06, 2024 7: 52am Reason for Visit Admit Date Chronic pancreatitis September 21, 2024 12 :28pm Severe malnutrition November 27, 2024 1:59p m Chronic pancreatitis November 27, 2024 1:59 pm Chief Complaint Admit Date AAA October 15, 2024 7:5 4am AAA SCREENING October 15, 2024 8:0 2am GASTRIC ULCER, ABD PAIN November 06, 2024 7: 52am lumbar radiculopathy January 22, 2025 9:5 7am Reason for Visit Admit Date Severe malnutrition November 27, 2024 1:59p m Chronic pancreatitis November 27, 2024 1:59 pm Additional Source Comments Care Team (unrecognized sect ion and content) Team Status: Active Member Role Status Dates Vel Koch Family Provider Active No Primary Care Physician Primary Care Provider Active Team Status: Active Member Role Status Dates Dr. Ida Blanca MD Emergency Provider Active No Primary Care Physician Primary Care Provider Active Dr. Jarret Romero MD Admit Provider, A ttending Provider, Other Provider Active Team Status: Active Member Role Status Dates Dr. Ida Blanca MD Emergency Provider Active No Primary Care Physician Primary Care Provider Active Dr. Jarret Romero MD Admit Provider, Other Provider Active Dr. Anu Wong DO Attending Provider, Other Provide r Active Team Status: Active Member Role Status Dates Dr. Ida Blanca MD Emergency Provider Active No Primary Care Physician Primary Care Provider Active Dr. Jarret Romero MD Admit Provider, A ttending Provider, Other Provider Active Dr. Anu oWng , DO Other Provider Active Dr. Kennedy Echeverria , DO Other Provider Active Team Status: Inactive Member Role Status Dates Dr. Ida Blanca MD Emergency Provider Active No Primary Care Physician Primary Care Provider Active Dr. Jarret Romero MD Admit Provider, A ttending Provider, Other Provider Active Dr. Anu Wong , DO Other Provider Active Dr. Kennedy Echeverria , DO Other Provider Active Team Status: Inactive Member Role Status Dates No Primary Care Physician Primary Care Provider Active Dr. Elgin Honeycutt MD Admit Provider, Attending Provid er Active Team Status: Active Member Role Status Dates Vel Koch Family Provider Active Dr. Elgin Honeycutt MD Primary Care Provider Active Team Status: Inactive Member Role Status Dates Dr. Elgin Honeycutt MD Primary Care Provider, Attending Provider Active Team Status: Active Member Role Status Dates Dr. Elgin Honeycutt MD Primary Care Provider, Attending Provider Active Team Status: Inactive Member Role Status Dates Dr. Elgin Honeycutt MD Primary Care Provi carrington, Attending Provider, Referring Provider Active Team Status: Active Member Role Status Dates Dr. Elgin Honeycutt MD Primary Care Provi carrington, Attending Provider, Referring Provider Active Team Status: Inactive Member Role Status Dates Dr. Elgin Honeycutt MD Primary Care Provider Active Dr. Quirino Perry MD Attending Provider, Referrin g Provider Active Team Status: Active Member Role Status Dates Dr. Elgin Honeycutt MD Primary Care Provider Active Team Status: Inactive Member Role Status Dates Dr. Elgin Honeycutt MD Primary Care Provider Active Start: July 02, 2024 End: July 02, 2024 Dr. Jesse Mak DO Attending Provider Active Start: July 02, 2024 End: July 02, 2024 Dr. Jesse Mak DO Emergency Provider Active Start: July 02, 2024 End: July 02, 2024 Team Status: Inactive Member Role Status Dates Dr. Elgin Honeycutt MD Primary Care Provider Active Start: July 03, 2024 End: July 03, 2024 Dr. Elgin Honeycutt MD Attending Provider Active Start: July 03, 2024 End: July 03, 2024 Team Status: Inactive Member Role Status Dates Dr. Elgin Honeycutt MD Primary Care Provider Active Start: July 30, 2024 End: July 30, 2024 Dr. Elgin Honeycutt MD Attending Provider Active Start: July 30, 2024 End: July 30, 2024 Dr. Elgin Honeycutt MD Referring Provider Active Start: July 30, 2024 End: July 30, 2024 Team Status: Inactive Member Role Status Dates Dr. Elgin Honeycutt MD Primary Care Provider Active Start: August 22, 2024 End: August 22, 2024 Dr. Elgin Honeycutt MD Attending Provider Active Start: August 22, 2024 End: August 22, 2024 Dr. Elgin Honeycutt MD Referring Provider Active Start: August 22, 2024 End: August 22, 2024 Team Status: Active Member Role Status Dates Dr. Elgin Honeycutt MD Primary Care Provider Active Start: August 22, 2024 Dr. Elgin Honeycutt MD Referring Provider Active Start: August 22, 2024 Dr. Elgin Honeycutt MD Other Provider Active Star t: August 22, 2024 Dr. Donna Salazar MD Attending Provider Active S tart: August 22, 2024 Team Status: Inactive Member Role Status Dates Dr. Elgin Honeycutt MD Primary Care Provider Active Start: August 27, 2024 End: August 27, 2024 Dr. Elgin Honeycutt MD Attending Provider Active Start: August 27, 2024 End: August 27, 2024 Team Status: Inactive Member Role Status Dates Dr. Elgin Honeycutt MD Primary Care Provider Active Start: September 20, 2024 End: September 20, 2024 Dr. Elgin Honeycutt MD Attending Provider Active Start: September 20, 2024 End: September 20, 2024 Dr. Elgin Honeycutt MD Referring Provider Active Start: September 20, 2024 End: September 20, 2024 Team Status: Inactive Member Role Status Dates Dr. Elgin Honeycutt MD Primary Care Provider Active Start: September 21, 2024 End: September 21, 2024 Dr. Elgin Honeycutt MD Referring Provider Active Start: September 21, 2024 End: September 21, 2024 MARTÍN Vasquez Attending Provider Active Start: September 21, 2024 End: September 21, 2024 Team Status: Active Member Role Status Dates Dr. Elgin Honeycutt MD Primary Care Provider Active Start: September 21, 2024 Dr. Quirino Perry MD Attending Provider Active Start: September 21, 2024 Dr. Quirino Perry MD Referring Provider Active Start: September 21, 2024 Team Status: Active Member Role Status Dates Dr. Elgin Honeycutt MD Primary Care Provider Active Start: September 26, 2024 Dr. Quirino Perry MD Attending Provider Active Start: September 26, 2024 Dr. Quirino Perry MD Referring Provider Active Start: September 26, 2024 Team Status: Inactive Member Role Status Dates Dr. Elgin Honeycutt MD Primary Care Provider Active Start: September 21, 2024 End: September 21, 2024 Dr. Quirino Perry MD Attending Provider Active Start: September 21, 2024 End: September 21, 2024 Dr. Quirino Perry MD Referring Provider Active Start: September 21, 2024 End: September 21, 2024 Team Status: Inactive Member Role Status Dates Dr. Elgin Honeycutt MD Primary Care Provider Active Start: September 26, 2024 End: September 26, 2024 Dr. Quirino Perry MD Attending Provider Active Start: September 26, 2024 End: September 26, 2024 Dr. Quirino Perry MD Referring Provider Active Start: September 26, 2024 End: September 26, 2024 Team Status: Inactive Member Role Status Dates Dr. Elgin Honeycutt MD Primary Care Provider Active Start: October 15, 2024 End: October 15, 2024 Dr. Elgin Honeycutt MD Attending Provider Active Start: October 15, 2024 End: October 15, 2024 Dr. Elgin Honeycutt MD Referring Provider Active Start: October 15, 2024 End: October 15, 2024 Team Status: Inactive Member Role Status Dates Dr. Elgin Honeycutt MD Primary Care Provider Active Start: November 06, 2024 End: November 06, 2024 Dr. Elgin Honeycutt MD Attending Provider Active Start: November 06, 2024 End: November 06, 2024 Dr. Elgin Honeycutt MD Referring Provider Active Start: November 06, 2024 End: November 06, 2024 Team Status: Active Member Role Status Dates Dr. Ji Francis MD Attending Provider Active Start: October 15, 2024 Dr. Elgin Honeycutt MD Referring Provider Active Start: October 15, 2024 Team Status: Inactive Member Role Status Dates Dr. Elgin Honeycutt MD Primary Care Provider Active Start: November 27, 2024 End: November 27, 2024 Dr. Elgin Honeycutt MD Referring Provider Active Start: November 27, 2024 End: November 27, 2024 Dr. Kiko Almanzar DO Attending Provider Active Start: November 27, 2024 End: November 27, 2024 Team Status: Active Member Role Status Dates Dr. Elgin Honeycutt MD Primary Care Provider Active Start: November 27, 2024 Dr. Elgin Honeycutt MD Referring Provider Active Start: November 27, 2024 Dr. Kiko Almanzar DO Attending Provider Active Start: November 27, 2024 Dr. Kiko Almanzar DO Other Provider Active St art: November 27, 2024 Team Status: Active Member Role/Relationship Status Dates No Primary Care Physician Primary Care Provider Active Team Status: Inactive Member Role/Relationship Status Dates Dr. Elgin Honeycutt MD Primary Care Provider Active Start: October 15, 2024 End: October 15, 2024 Dr. Elgin Honeycutt MD Attending Provider Active Start: October 15, 2024 End: October 15, 2024 Dr. Elgin Honeycutt MD Referring Provider Active Start: October 15, 2024 End: October 15, 2024 Team Status: Active Member Role/Relationship Status Dates Dr. Ji Francis MD Attending Provider Active Start: October 15, 2024 Dr. Elgin Honeycutt MD Referring Provider Active Start: October 15, 2024 Team Status: Inactive Member Role/Relationship Status Dates Dr. Elgin Honeycutt MD Primary Care Provider Active Start: November 06, 2024 End: November 06, 2024 Dr. Elgin Honeycutt MD Attending Provider Active Start: November 06, 2024 End: November 06, 2024 Dr. Elgin Honeycutt MD Referring Provider Active Start: November 06, 2024 End: November 06, 2024 Team Status: Inactive Member Role/Relationship Status Dates Dr. Elgin Honeycutt MD Primary Care Provider Active Start: November 27, 2024 End: November 27, 2024 Dr. Elgin Honeycutt MD Referring Provider Active Start: November 27, 2024 End: November 27, 2024 Dr. Kiko Almanzar DO Attending Provider Active Start: November 27, 2024 End: November 27, 2024 Team Status: Active Member Role/Relationship Status Dates Dr. Elgin Honyecutt MD Primary Care Provider Active Start: November 27, 2024 Dr. Elgin Honeycutt MD Referring Provider Active Start: November 27, 2024 Dr. Kiko Almanzar DO Attending Provider Active Start: November 27, 2024 Dr. Kiko Almanzar DO Other Provider Active St art: November 27, 2024 Team Status: Inactive Member Role/Relationship Status Dates No Primary Care Physician Primary Care Provider Active Start: January 22, 2025 End: January 22, 2025 Dr. Quirino Perry MD Attending Provider Active Start: January 22, 2025 End: January 22, 2025 Dr. Quirino Perry MD Referring Provider Active Start: January 22, 2025 End: January 22, 2025 (unrecognized sect ion and content) No Status Records FoundNo Status Records Found INFORMATION SOURCE (unrecogn ized section and content) DATE CREATED AUTHOR 10/18/2021 [facility] DATE CREATED AUTHOR AUTHOR'S WILDERIZ ATION 01/31/2025 [facility] Goals (unrecognized section and content) Goals may be documented in a n alternate section FOR RECORDS PERTAINING TO PATIENTS WHO ARE [...] BE BASED ON THE PRIMARY CLINICAL RECORDS. [employer] provides no warranty or guarantee of the accuracy or completeness of information in this document.
--- NOTE | 2025-02-03 05:08 | EDS_ITS ---
HPI HPI - Fall History of Present Illness Chief Complaint: Fall Informant: patient and EMS Narrative Narrative: Presents by EMS from the large multiple falls. Positive alcohol use this evening. States he drank more than normal. He was going back to his room we could not open the door he tumbled hitting the door and wall. Did not lose consciousness. He denies being on any blood thinners. Tetanus shot was 2 years ago per patient. Denies headache neck pain chest pains. Bystanders called EMS. Reports recent cataract repair. Denies vision changes. PFSH PFSH Medical History Wears glasses Wears dentures Alcohol use Liver spots Rheumatoid arthritis Restless legs Migraine headache No natural teeth Difficulty swallowing Difficulty chewing Heartburn Gastric reflux Cancer History of echocardiogram History of stress test History of heart attack Stroke/cerebrovascular accident COPD (chronic obstructive pulmonary disease) Smoker Rhabdomyolysis Hyponatremia Fall Debility T12 compression fracture Recurrent falls Thrombocytopenia Alcohol abuse Home Medications ?Medication ?Instructions ?Recorded ?Last Taken ?Type folic acid 1 mg tablet 1 mg PO DAILYCM 30 days #30 tabs 09/13/23 Unknown Rx nicotine 21 mg/24 hr daily 21 mg transdermal DAILY 30 days 09/13/23 Unknown Rx transdermal patch #30 ea thiamine HCl (vitamin B1) 100 mg 100 mg PO DAILY 30 da ys #30 tabs 09/13/23 Unknown Rx tablet (Vitamin B-1) cyclobenzaprine 10 mg tablet 10 mg PO TID PRN Muscle S pasm #15 07/02/24 Unknown Rx TABLETS gabapentin 800 mg tablet 800 mg PO TID 07/02/24 Unkno wn History lidocaine 5 % topical patch 1 patch topical DAILY 5 da ys #5 ea 07/02/24 Unknown Rx (Lidoderm) pantoprazole 40 mg tablet,delayed 40 mg PO BID #60 tab s 11/27/24 Unknown Rx release sucralfate 1 gram tablet (Carafate) 1 g PO BID #60 tab s 11/27/24 Unknown Rx Allergy/AdvReac Type Severity Reaction Status Date / Time No Known Allergies Allergy Verified 02/03/25 02:59 Surgical History History of colonoscopy History of hand surgery History of lumpectomy of both breasts History of vasectomy History of cardiac catheterization Social History household members: none Smoking Status: Current every day smoker tobacco type: cigars quit status: not considering quitting alcohol intake: current Alcohol type: beer details: 12 beers daily. substance use type: does not use ROS ROS ED Constitutional Constitutional ED: Denies fever(s) Cardiovascular Cardiovascular: Denies chest pain Respiratory/Chest Respiratory/Chest: Denies cough Gastrointestinal Gastrointestinal: Denies diarrhea or vomiting Musculoskeletal Musculoskeletal: Denies none Integumentary Reports Abrasions and wounds; Denies rash Neurologic Neurologic: Denies weakness EXAM Physical Exam Const Vital Signs: 02/03/25 02:54 02/03/25 02:59 Temperature 97.5 F L Temperature Source Oral Pulse Rate 85 Respiratory Rate 18 Respiratory Effort Normal Blood Pressure 117/77 Blood Pressure Mean 90 Pulse Ox 97 Oxygen Delivery Method Room Air Positive well nourished and well developed Constitutional Narrative: Alcohol odor, patient is alert orient x 3 he is following commands. General Appearance ED: well developed HEENT Reports normocephalic and moist mucous membranes HEENT Narrative: Left frontal abrasions with dried blood. Right brow noted laceration 2.5 cm with dried blood. Tender palpation around the eye. No proptosis or entrapment. Eyes PERRL and EOMs intact bilaterally Neck Neck Narrative: C-collar: Chest Wall inspection of chest normal and palpation of chest normal Resp normal respiratory effort and clear to auscultation bilaterally Cardio regular rate, regular rhythm and no murmurs GI normal to inspection, nondistended, normoactive bowel sounds and non-tender Palpation: soft Narrative: Incontinence of urine down his pants. Back/Spine Back/Spine Narrative: No midline back tenderness no step-off no ecchymosis. Extremity Extremity Narrative: Left upper extremity: Multiple abrasions distal forearm and hand there is no deformities. No bony tenderness. Right upper extremity: Multiple abrasions forearm and hand, no active bleeding. Lower extremities: Full range of motion negative logroll. There were bilateral knee abrasions no bony tenderness. General Extremety ED: Negative for edema General Extremity: Negative for edema Neuro oriented x3 and CN's II-XII intact bilaterally Motor Exam: strength 5/5 throughout Skin Skin Narrative: See above MDM MDM MDM Narrative Medical decision making narrative: Interventions / MDM: Differential diagnosis: Alcohol intoxication, head injury, facial laceration, multiple abrasions Diagnosis considered but do not suspect: Intracranial hemorrhage fractures however CT negative. My EKG interpretation: N/A Imaging independently reviewed and interpreted by myself: CT brain/cervical spine/facial bones: No fracture noted. Also read by radiology. Laceration soft tissue defect of right brow. External documents reviewed: N/A Test considered but not ordered:N/A ED course: Fall with alcohol use. Head injury laceration above the brow multiple abrasions. Trauma scans head neck and face ordered. Will prep for laceration repair. Trauma scans negative. Laceration repaired. Patient be monitored more clinically sober ambulated prior to discharge. Patient signed out to oncoming physician. Procedure note: Laceration repair. Verbal consent. Normal sterile conditions. 2 cc 1% lidocaine used for local analgesia above the right brow. Wound was cleansed with normal saline. No gross foreign bodies noted. Wound was closed in a total of 3, 6-0 nylon simple interrupted sutures. Good approximation. Bacitracin ointment was placed over abrasion and the laceration wound. Re-evaluation: stable Disposition discussed with patient/family/significant other: Case discussed with consulting clinician: N/A This note was generated with [employer] dictation software. It may contain incorrect words, spelling, and punctuation that were not noted in checking the note before signing. Radiography Diagnostic Testing: Clinical Impression(s) from Imaging Studies Brain CT 02/03/25 03:13 IMPRESSION: No acute intracranial findings Reading Location: [facility] 02/03/25 03:13 IMPRESSION: No acute injury Reading Location: [facility] Facial/Sinus 02/03/25 03:13 IMPRESSION: Anterior scalp laceration. Reading Location: [facility] Discharge Plan Triage Chief Complaint: Fall ED Provider: Rex Mazariegos Dx/Rx/DC Orders Clinical Impression: Alcohol intoxication, Falls, Head injury, Face lacerations, Abrasion, multiple sites Instructions: ED Abrasion, ED Alcohol Intoxication, ED Head Injury (Adult), ED FACIAL LACERATION Suture Tape Prescriptions: No Action thiamine HCl (vitamin B1) [Vitamin B-1] 100 mg Tablet 100 mg PO DAILY 30 Days Qty: 30 0RF nicotine 21 mg/24 hr Patch 24 Hour 21 mg transdermal DAILY 30 Days Qty: 30 0RF folic acid 1 mg Tablet 1 mg PO DAILYCM 30 Days Qty: 30 0RF gabapentin 800 mg tablet 800 mg PO TID cyclobenzaprine 10 mg tablet 10 mg PO TID PRN (Reason: Muscle Spasm) Qty: 15 0RF lidocaine [Lidoderm] 5 % adhesive patch,medicated 1 patch topical DAILY 5 Days Qty: 5 0RF Rx Instructions: leave on most painful area for up to 12 hrs sucralfate [Carafate] 1 gram tablet 1 g PO BID Qty: 60 1RF pantoprazole 40 mg tablet,delayed release (DR/EC) 40 mg PO BID Qty: 60 2RF Primary Care Provider: Care Physician,No Primary Referrals: Calli Dotson MD [Med Staff - Active Staff] - 7 Days for suture removal Care Physician,No Primary [Primary Care Provider] - Activity Restrictions/Additional Instructions: CT head neck and face are negative. 3 sutures placed above your brow. Multiple abrasions. Wound care daily. Follow-up in 1 week for suture removal. Print Language: Italian Disposition Disposition: Home, Self Care
[2025-02-03 07:45] VITALS: BP 108/65; PULSE 99; RESP 16; O2SAT 96
[2025-02-03 07:51] VITALS: BP 108/65; PULSE 99; RESP 16; TEMP 36.9; O2SAT 96
== END 2025-02-03 07:52 | disposition home or self-care (01) ==
PROVIDERS: Emergency Provider Emergency Medicine; Visit Provider Emergency Medicine
DX: S01.112A Laceration without foreign body of left eyelid and periocular area, initial encounter (principal); J44.9 Chronic obstructive pulmonary disease, unspecified; F10.129 Alcohol abuse with intoxication, unspecified; R29.6 Repeated falls; Z91.81 History of falling; K21.9 Gastro-esophageal reflux disease without esophagitis; S50.811A Abrasion of right forearm, initial encounter; S60.511A Abrasion of right hand, initial encounter; S80.211A Abrasion, right knee, initial encounter; S80.212A Abrasion, left knee, initial encounter; R32 Unspecified urinary incontinence; W19.XXXA Unspecified fall, initial encounter
CPT/HCPCS: 12011; 70450; 70486; 72125; 99285

== ENCOUNTER → 2025-02-06 | Outpatient (CLI) | payer MEDICARE, SELFPAY ==
--- NOTE | 2025-02-06 07:44 | MRI_ITS ---
PROCEDURE: SPINE LUMBAR (ROUTINE) 02/06/2025 REASON FOR EXAM: LUMBAR RADICULOPATHY TECHNIQUE: SPINE LUMBAR (ROUTINE) COMPARISON: Lumbar spine x-ray 01/20/2025. FINDINGS: Vertebrae: Chronic compression fracture of T12. The vertebral bodies are otherwise preserved in height and signal. Alignment: Normal. Conus Medullaris: Unremarkable. L1-2: Unremarkable. L2-3: Unremarkable. L3-4: Unremarkable. L4-5: Facet joint arthropathy. No significant foraminal or canal stenosis. L5-S1: Facet joint arthropathy. No significant foraminal or canal stenosis. Sacrum: No acute bony abnormalities. MRI/Spine Lumbar (Routine) IMPRESSION: No significant foraminal or canal stenosis. Bilateral L4-L5 facet joint arthropathy. Reading Location: [id number]
--- NOTE | 2025-02-06 07:44 | MRI_ITS ---
PROCEDURE: SPINE LUMBAR (ROUTINE) 02/06/2025 REASON FOR EXAM: LUMBAR RADICULOPATHY TECHNIQUE: SPINE LUMBAR (ROUTINE) COMPARISON: Lumbar spine x-ray 01/20/2025. FINDINGS: Vertebrae: Chronic compression fracture of T12. The vertebral bodies are otherwise preserved in height and signal. Alignment: Normal. Conus Medullaris: Unremarkable. L1-2: Unremarkable. L2-3: Unremarkable. L3-4: Unremarkable. L4-5: Facet joint arthropathy. No significant foraminal or canal stenosis. L5-S1: Facet joint arthropathy. No significant foraminal or canal stenosis. Sacrum: No acute bony abnormalities. MRI/Spine Lumbar (Routine) IMPRESSION: No significant foraminal or canal stenosis. Bilateral L4-L5 facet joint arthropathy. Reading Location: [id number]
== END | disposition home or self-care (01) ==
PROVIDERS: Referring Provider Anesthesiology; Visit Provider Anesthesiology
DX: M54.16 Radiculopathy, lumbar region (principal)
CPT/HCPCS: 72148

== ENCOUNTER → 2025-03-06 | Outpatient (CLI) | payer MEDICARE, SELFPAY ==
[2025-03-06 10:59] LABS: FOLATES,SERUM (FOLIC ACID) 10.60 ng/mL (4.60-34.80)
[2025-03-06 11:15] LABS: Vitamin B12 407 pg/mL (180-914)
[2025-03-13 12:08] LABS: Vitamin B1, Thiamine 103.8 nmol/L (66.5-200.0)
== END | disposition home or self-care (01) ==
LOC: LAB 09:22
PROVIDERS: Referring Provider Anesthesiology; Visit Provider Anesthesiology
DX: G62.9 Polyneuropathy, unspecified (principal); F10.90 Alcohol use, unspecified, uncomplicated
CPT/HCPCS: 36415; 82607; 82746; 84425

== ENCOUNTER → 2025-04-03 | Outpatient (CLI) | payer MEDICARE, SELFPAY ==
--- NOTE | 2025-04-03 12:35 | RAD_ITS ---
PROCEDURE: THORACIC SPINE 3 VIEWS 04/03/2025 REASON FOR EXAM: THORACIC SPONDYLOSIS TECHNIQUE: Procedure Code: RADSPT Modality: DX Procedure: THORACIC SPINE 3 VIEWS COMPARISON: September 2024. FINDINGS: Kyphoplasty T12. Vertebral body heights and alignment otherwise intact. Mild degenerate disc disease. No new fracture. Facet joints negative. No fractures and no dislocations. Cervicothoracic and thoracolumbar junctions negative. RAD/Thoracic Spine 3 Views IMPRESSION: Compression fracture with old kyphoplasty T12. Stable. Negative for acute abnormality of the thoracic spine. Reading Location: [id number]
== END | disposition home or self-care (01) ==
LOC: RAD 12:33
PROVIDERS: Referring Provider Anesthesiology; Visit Provider Anesthesiology
DX: M47.814 Spondylosis without myelopathy or radiculopathy, thoracic region (principal)
CPT/HCPCS: 72072

== ENCOUNTER → 2025-05-10 | Outpatient (CLI) | payer MEDICARE, SELFPAY ==
--- NOTE | 2025-05-10 08:12 | MRI_ITS ---
PROCEDURE: SPINE THORACIC (ROUTINE) 05/10/2025 REASON FOR EXAM: THORACIC RADICULOPATHY TECHNIQUE: Procedure Code: MRISPT Modality: MR Procedure: SPINE THORACIC (ROUTINE) Multiplanar and multisequence images were obtained. COMPARISON: Thoracic spine x-ray 04/03/2025. FINDINGS: Vertebrae: Status post kyphoplasty of T12. The remainder vertebral bodies are preserved in height and signal. Disc levels: Unremarkable without foraminal or canal stenosis. Alignment: Normal alignment. Spinal Cord: Unremarkable. MRI/Spine Thoracic (Routine) IMPRESSION: Status post kyphoplasty of T12. The remainder vertebral bodies are preserved i n height and signal. No foraminal or canal stenosis. Reading Location: [id number]
--- OUTSIDE RECORDS SUMMARY | 2025-05-10 08:19 | XMS RPT_ITS | CCD ---
Author Organization [facility] Care Team Providers Care Oracle Fusion Middleware Developer Name Role Phone FANNY VEL JIMÉNEZ CNP Primary Care Phys ician Dr. Ida Blanca Emergency Provider Care Physician, [...] Provider Dr. Kennedy Echeverria Other Provider [phone] Yinka ADHIKARI, Dr. Elgin Monson Primary Care Provider Dr. Jesse Mak DO Attending Provider Dr. Jesse Mak DO Emergency Provider Yinka ADHIKARI, Dr. Elgin Monson Attending Provider Yinka ADHIKARI, Dr. Elgin Monson Referring Provider Yinka ADHIKARI, Dr. Elgin Monson Other Provider Marie ADHIKARI, Dr. Thompson Attending Provider [phone] Blaire Cruz Attending Provider Vicky ADHIKARI, Dr. Win Attending Provider Vicky ADHIKARI, Dr. Win Referring Provider Yinka ADHIKARI, Dr. Elgin Monson Primary Care Provider Yinka ADHIKARI, Dr. Elgin Monson Attending Provider Yinka ADHIKARI, Dr. Elgin Monson Primary Care Provider Yinka ADHIKARI, Dr. Elgin Monson Attending Provider Yinka ADHIKARI, Dr. Elgin Monson Referring Provider Penyn ADHIKARI, Dr. Ji Starkey Attending Provider Jenelle DICKINSON, Dr. Hoover Attending Provider Jenelle DICKINSON, Dr. Hoover Other Provider Yinka ADHIKARI, Dr. Elgin Monson Primary Care Provider Yinka ADHIKARI, Dr. Elgin Monson Attending Provider Yinka ADHIKARI, Dr. Elgin Monson Referring Provider Care Physician, No Primary Primary Care Provider Unavailable Vicky ADHIKARI, Dr. Win Attending Provider Vicky ADHIKARI, Dr. Win Referring Provider Dr. Rex Mazariegos DO Emergency Provider [phone] Yinka ADHIKARI, Dr. Elgin Monson Primary Care Provider Yinka ADHIKARI, Dr. Elgin Monson Attending Provider Yinka ADHIKARI, Dr. Elgin Monson Referring Provider Dr. Rex Mazariegos DO Attending Provider Yinka ADHIKARI, Dr. Elgin Monson Primary Care Provider Yinka ADHIKARI, Dr. Elgin Monson Referring Provider Care Physician, No Primary Primary Care Physicia n Unavailable Vicky ADHIKARI, Dr. Win Attending Physician [phone] Delilah DICKINSON, Dr. Goodman Attending Physician Dr. Rex Mazariegos DO Emergency Department Physician Care Physician, No Primary Primary Care Unava ilable Quirino Perry Attending Unavailable Quirino Perry Referring Unavailable Care Physician, No Primary Primary Care Unava ilable Quirino Perry Attending Unavailable Quirino Perry Referring Unavailable Care Physician, No Primary Primary Care Unava ilable Quirino Perry Attending Unavailable Quirino Perry Referring Unavailable Care Physician, No Primary Primary Care Unava ilable Quirino Perry Attending Unavailable Quirino Perry Referring Unavailable Care Physician, No Primary Primary Care Unava ilable Rex Mazariegos Attending Unavailable Yinka, Elgin Chi Primary Care Unavailable Yinka, Elgin Chi Referring Unavailable Yinka, Elgin Chi Attending Unavailable Yinka, Elgin Chi Primary Care Unavailable Quirino Perry Attending Unavailable PraysonMedQuirino Referring Unavailable Yinka, Elgin Chi Primary Care Unavailable Yinka, Elgin Chi Attending Unavailable Yinka, Elgin Chi Attending Unavailable Yinka, Elgin Chi Primary Care Unavailable Jesse Mak Attending Unavailable Yinka, Elgin Chi Primary Care Unavailable Yinka, Elgin Chi Attending Unavailable Yinka, Elgin Chi Primary Care Unavailable Yinka, Elgin Chi Attending Unavailable Yinka, Elgin Chi Primary Care Unavailable Care Physician, No Primary Primary Care Unava ilable Quirino Perry Attending Unavailable PraysonMedQuirino Referring Unavailable PraysonQuirino Attending Unavailable Prayson, Quirino Referring Unavailable Yinka, Elgin Chi Primary Care Unavailable Yinka, Elgin Chi Primary Care Unavailable Yinka, Elgin Chi Referring Unavailable Friend, Kiko Attending Unavailable Yinka, Elgin Chi Primary Care Unavailable Yinka, Elgin Chi Referring Unavailable Yinka, Elgin Chi Attending Unavailable Friend, Kiko Consulting Unavailable Yinka, Elgin Chi Referring Unavailable Yinka, Elgin Chi Primary Care Unavailable Friend, Kiko Attending Unavailable Yinka, Elgin Chi Referring Unavailable Yinka, Elgin Chi Primary Care Unavailable Yinka, Elgin Chi Attending Unavailable Yinka, Elgin Chi Primary Care Unavailable Yinka, Elgin Chi Referring Unavailable Yinka, Elgin Chi Attending Unavailable Yinka, Elgin Chi Primary Care Unavailable Yinka, Elgin Chi Referring Unavailable Yinka, Elgin Chi Attending Unavailable Ynika, Elgin Chi Referring Unavailable Yinka, Elgin Chi Primary Care Unavailable Blaire Smalls Attending Unavailable Yinka, Elgin Chi Consulting Unavailable Yinka, Elgin Chi Referring Unavailable Donna Salazar Attending Unavailable Yinka, Elgin Chi Primary Care Unavailable Allergies Allergy Classification Reported Allergen(s) Allergy Type Date of Onset Reaction(s) Facility (3 sources) NSAIDs; Translations: [NSAIDs] Drug allergy Stomach ache (finding) [facility] Work Phone: (3 sources) Sulfonamides (Antibiotic); Translations: [sulfa drugs] Drug allergy Stomach ache (finding) [facility] Work Phone: Medications Current Medications Medication [...] BID, # 3 EA, 1 Refill(s), Pharmacy: [facility], COPD without exacerbation, 190, cm, 10/13/21 11:37:00 EDT, Height, kg, 10/13/21 11:33:00 EDT, Dosing Weight Start Date: 10/13/21 Stop Date: 04/11/22 Status: Ordered Start: 05-26-2021 End: 11-22-2021 take 1 dose by inhalation twice daily budesonide-formoterol 160 mcg-4.5 mcg/inh Inhaler Dose = 2 puff(s), Inhalation, BID, # 3 EA, 1 Refill(s), Pharmacy: [facility], COPD without exacerbation, 184.5, cm, 05/26/21 9:13:00 EST, Height, kg, 05/26/21 9:13:00 EST, Dosing Weight Start Date: 05/26/21 Stop Date: 11/22/21 Status: Ordered cholecalciferol 1.25 mg oral capsule (3 sources) Vitamin D Start: 09-22-2021 End: 06-19-2022 cholecalciferol 1250 mcg (50,000 intl units) oral capsule Dose : 50,000 International_Unit = 1 cap(s), Oral, qWeek, # 13 cap(s), 2 Refill(s), Pharmacy: [facility], Vitamin D deficiency, 190, cm, 09/22/21 8:19:00 EDT, Height, kg, 09/22/21 8:19:00 EDT, Dosing Weight Start Date: 09/22/21 Stop Date: 06/19/22 Status: Ordered Start: 06-23-2021 End: 03-20-2022 cholecalciferol 1250 mcg (50 ,000 intl units) oral capsule Dose : 50,000 International_Unit = 1 cap(s), Oral, every other week, # 7 cap(s), 2 Refill(s), Pharmacy: [facility], Vitamin D deficiency, 184.5, cm, 06/23/21 8:01:00 EST, Height, kg, 06/23/21 8:01:00 EST, Dosing Weight Start Date: 06/23/21 Stop Date: 03/20/22 Status: Ordered citalopram 20 mg oral tablet (4 sources) Serotonin Reuptake Inhibitor Start: 06-23-2021 End: 03-21-2022 citalopram 20 mg oral tablet Dose : 20 mg = 1 tab(s), Oral, qDay, # 90 tab(s), 1 Refill(s), Pharmacy: [facility], 190, cm, 09/22/21 8:19:00 EDT, Height, kg, 09/22/21 8:19:00 EDT, Dosing Weight Start Date: 09/22/21 Stop Date: 03/21/22 Status: Ordered Start: 05-26-2021 End: 11-22-2021 citalopram 10 mg oral tablet Dose : 10 mg = 1 tab(s), Oral, qDay, # 90 tab(s), 1 Refill(s), Pharmacy: [facility], RADHA (generalized anxiety disorder), 184.5, cm, 11/23/21 9:13:00 EST, Height, kg, 05/26/21 9:13:00 EST, Dosing Weight Start Date: 05/26/21 Stop Date: 11/22/21 Status: Ordered cyclobenzaprine hydrochloride 10 mg oral tablet (11 sources) Muscle Relaxant Start: 07-02-2024 take 1 tablet by mouth three times daily as needed for muscle spasms folic acid 1 mg oral tablet (20 sources) Start: 09-05-2023 End: 09-13-2023 take 1 tablet by mouth once daily at mealtime gabapentin 800 mg oral tablet (20 sources) Anti-epileptic Agent Start: 07-02-2024 take 1 tablet by mouth three times daily Start: 09-13-2023 End: 07-02-2024 take 2 capsules by mouth three times daily at mealtime Gabapentin 400 mg Capsule Discontinued 800 mg PO 3 TIMES DAILY WITH MEALS 180 30 0 September 13, 2023 12:00am July 02, 2024 10:42am Start: 09-13-2023 take 800 mg by mouth three times daily at mealtime Gabapentin Active 800 MG PO 3 TIMES DAILY WITH MEALS 180 30 September 13, 2023 12:00am Start: 09-22-2021 End: 03-21-2022 gabapentin 800 mg oral table t Dose : 800 mg = 1 tab(s), Oral, TID, # 270 tab(s), 1 Refill(s), Pharmacy: [facility], Neuropathic pain, leg: Chronic, 190, cm, 09/22/21 8:19:00 EDT, Height, 79, kg, 09/22/21 8:19:00 EDT, Dosing Weight Start Date: 09/22/21 Stop Date: 03/21/22 Status: Ordered Start: 05-26-2021 End: 08-24-2021 gabapentin 800 mg oral table t Dose : 800 mg = 1 tab(s), Oral, TID, # 270 tab(s), 0 Refill(s), Pharmacy: [facility], Neuropathic pain, leg: Chronic, 184.5, cm, 05/26/21 9:13:00 EST, Height, 76.6, kg, 05/26/21 9:13:00 EST, Dosing Weight Start Date: 05/26/21 Stop Date: 08/24/21 Status: Ordered hydroCHLOROthiazide 12.5 mg oral capsule (4 sources) Thiazide Diuretic Start: 05-26-2021 End: 03-21-2022 hydroCHLOROthiazide 12.5 mg oral capsule Dose : 12.5 mg = 1 cap(s), Oral, qDay, # 90 cap(s), 1 Refill(s), Pharmacy: [facility], HTN, goal below 140/90, 190, cm, 09/22/21 8:19:00 EDT, Height, kg, 09/22/21 8:19:00 EDT, Dosing Weight Start Date: 09/22/21 Stop Date: 03/21/22 Status: Ordered lidocaine 0.05 mg/mg medicated patch (11 sources) Antiarrhythmic , Amide Local Anesthetic Start: 07-02-2024 24 hr nicotine 0.875 mg/hr transdermal system (20 sources) Cholinergic Nicotinic Agonist Start: 09-05-2023 End: 09-13-2023 apply 1 dose transdermal route every twenty-four hours Start: 09-05-2023 End: 09-13-2023 Nicotine Active 21 MG TD SAMUEL LY September 13, 2023 12:00am pantoprazole 40 mg delayed release oral tablet (9 sources) Proton Pump Inhibitor Start: 11-27-2024 take 1 tablet by mouth twice daily Start: 05-26-2021 End: 11-22-2021 pantoprazole 40 mg oral ente taylor coated tablet Dose : 40 mg = 1 tab(s), Oral, qDayAC, # 90 tab(s), 1 Refill(s), Pharmacy: [facility], GERD (gastroesophageal reflux disease), 184.5, cm, 05/26/21 9:13:00 EST, Height, kg, 05/26/21 9:13:00 EST, Dosing Weight Start Date: 05/26/21 Stop Date: 11/22/21 Status: Ordered propranolol hydrochloride 20 mg oral tablet (1 source) beta-Adrenergic Nicko Start: 10-13-2021 End: 12-12-2021 propranolol 20 mg oral tablet Dose : 20 mg = 1 tab(s), Oral, BID, # 180 tab(s), 1 Refill(s), Pharmacy: [facility], 190, cm, 10/13/21 11:37:00 EDT, Height, kg, 10/13/21 11:33:00 EDT, Dosing Weight Start Date: 10/13/21 Stop Date: 12/12/21 Status: Ordered rosuvastatin 40 mg oral capsule (3 sources) HMG-CoA Reductase Inhibitor Start: 06-23-2021 End: 12-20-2021 rosuvastatin 40 mg oral capsule Dose : 40 mg = 1 cap(s), Oral, qDay, # 90 cap(s), 1 Refill(s), Pharmacy: [facility], 184.5, cm, 06/23/21 8:01:00 EST, Height, kg, 06/23/21 8:01:00 EST, Dosing Weight Start Date: 06/23/21 Stop Date: 12/20/21 Status: Ordered Start: 05-26-2021 End: 11-22-2021 rosuvastatin 20 mg oral tabl et Dose : 20 mg = 1 tab(s), Oral, Daily, # 90 tab(s), 1 Refill(s), Pharmacy: [facility], Hyperlipidemia LDL goal Start Date: 05/26/21 Stop Date: 11/22/21 Status: Ordered sucralfate 1000 mg oral tablet (6 sources) Aluminum Complex Start: 11-27-2024 take 1 tablet by mouth twice daily thiamine 100 mg oral tablet (20 sources) Start: 09-05-2023 End: 09-13-2023 take 1 tablet by mouth once daily traMADol hydrochloride 50 mg oral tablet (1 source) Opioid Agonist Start: 09-22-2021 End: 10-22-2021 traMADol 50 mg oral tablet Dose : 50 mg = 1 tab(s), Oral, TID, PRN as needed for pain, Fill Date: 09/22/2021, # 90 tab(s), 0 Refill(s), Pharmacy: [facility], Chronic pain syndrome Chronic [...] Sig (Original) acetaminophen 500 mg oral tablet (19 sources) Start: 09-05-2023 End: 09-13-2023 Acetaminophen 500 [...] / oxyCODONE hydrochloride 5 mg oral tablet (11 sources) Opioid Agonist Start: 07-02-2024 End: 11-27-2024 Oxycodone-Acetaminophen 5-32 5 mg tablet Discontinued 1 {tbl} PO EVERY 6 HOURS NEEDED as needed for Pain 12 3 0 July 02, 2024 November 27, 2024 2:16pm Acute neck pain Cervicalgia Food Supplemt, Lactose-Reduced (Ensure Plus High Protein) 0.08 gram-1.5 kcal/mL Liquid (19 sources) Start: 09-05-2023 End: 09-13-2023 Food Supplemt, [...] DAILY WITH MEALS 0 September 05, 2023 12:00am Multivitamin preparation (8 sources) Start: 09-05-2023 End: 09-13-2023 take 1 tablet by mouth at breakfast Multivitamin Discontinued 1 TABLET PO WITH BREAKFAST 0 September 05, 2023 1:00am September 13, 2023 7:53am Start: 09-05-2023 take 1 tablet by chayo th at breakfast Multivitamin Active 1 TABLET PO WITH BREAKFAST 0 September 05, 2023 12:00am Multivitamin Tablet (11 sources) Start: 09-05-2023 End: 09-13-2023 Multivitamin Tablet Disconti nued 1 {tbl} PO WITH BREAKFAST 0 0 September 05, 2023 1:00am September 13, 2023 7:53am supplement Start: 09-05-2023 End: 09-13-2023 Multivitamin Tablet Disconti nued 1 {tbl} PO WITH BREAKFAST 0 September 05, 2023 1:00am September 13, 2023 7:53am Sennosides (Senna) 8.6 mg Tablet (18 sources) Start: 09-05-2023 End: 09-13-2023 take 1 [...] Tablet Discontinued 8.6 MG PO AT BEDTIME 0 September 05, 2023 1:00am September 13, 2023 7:54am Start: 09-05-2023 take 1 tablet by mouth at bedt simone Sennosides (Senna) 8.6 mg Tablet Active 8.6 MG PO AT BEDTIME 0 September 05, 2023 12:00am sennosides, detention 8.6 mg oral tablet (1 source) Start: 09-05-2023 End: 09-13-2023 take 1 tablet by mouth at bedtime as needed for constipation Sennosides (Senna) 8.6 mg Tablet Discontinued 8.6 mg PO AT BEDTIME as needed for Constipation 0 0 September 05, 2023 1:00am September 13, 2023 7:54am Problems Active Problems Problem Classification Problem Date Documented Da te Episodic/Chronic Alcohol-related disorders (20 sources) Alcohol abuse; Translations: [Alcohol abuse, uncomplicated] 08-29-2023 Chronic Alcohol-related disorders (4 sources) Alcohol intoxication; Translations: [Alcohol use, unspecified with intoxication, unspecified] 02-03-2025 Episodic Anxiety disorders (4 sources) Generalized anxiety disorder 05-26-2021 Chronic Chronic obstructive pulmonary disease and bronchiectasis (4 sources) Chronic obstructive lung disease 05-26-2021 Chronic Coagulation and hemorrhagic disorders (20 sources) Thrombocytopenic disorder; Translations: [Thrombocytopenia, unspecified] 08-29-2023 [...] Translations: [Nutritional marasmus] Onset: 5 05-26-2021 Chronic Open wounds of head; neck; and trunk (4 sources) Facial laceration ; Translations: [Laceration without foreign body of other part of head, initial encounter] 02-03-2025 Episodic Other acquired deformities (1 source) Spondylolysis, thoracic region; Translations: [Spondylolysis, thoracic region] Onset: 5 Episodic Other circulatory disease (4 sources) History of cerebrovascular accident 05-26-2021 Episodic Other connective tissue disease (4 sources) Pain in lower limb 05-26-2021 Episodic Other connective tissue disease (2 sources) Musculoskeletal pain 08-20-2021 Episodic Other connective tissue disease (20 sources) Recurrent falls ; Translations: [Repeated falls] 08-29-2023 Episodic Other connective tissue disease (2 sources) Repeated falls; Translations: [History of fall] Onset: 5 09-05-2023 Episodic Other connective tissue disease (18 sources) Rhabdomyolysis; Translations: [Rhabdomyolysis] 09-05-2023 Episodic Other connective tissue disease (7 sources) Rhabdomyolysis; Translations: [Rhabdomyolysis] 09-15-2023 Episodic Other endocrine disorders (1 source) Obi's syndrome, unspecified; 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, unspecified] Onset: 5 Chronic Other fractures (19 sources) Fracture of twelfth thoracic vertebra; Translations: [Wedge compression fracture of T11-T12 vertebra, initial encounter for closed fracture] 08-29-2023 Episodic Other fractures (1 source) Wedge compression fracture of T11-T12 vertebra, initial encounter for closed fracture; Translations: [Closed fracture of dorsal [thoracic] vertebra without mention of spinal cord injury] 09-05-2023 Episodic Other gastrointestinal disorders (4 sources) H/O: abdominal hernia 05-26-2021 Episodic Other injuries and conditions due to external causes (4 sources) Abrasion and/or friction burn of multiple sites; Translations: [Unspecified multiple injuries, initial encounter] 02-03-2025 Episodic Other injuries and conditions due to external causes (4 sources) Injury of head; Translations: [Unspecified injury of head, initial encounter] 02-03-2025 Episodic Other liver diseases (4 sources) Liver mass 05-26-2021 Episodic Other liver diseases (20 sources) Enzyme level - finding; Translations: [Elevated transaminase measurement] 08-29-2023 Episodic Other lower respiratory disease (4 sources) H/O: respiratory disease 05-26-2021 Episodic Other lower respiratory disease (2 sources) Dyspnea 08-20-2021 Episodic Other nervous system disorders (1 source) Chronic pain syndrome 09-22-2021 Chronic Other nervous system disorders (1 source) Polyneuropathy, unspecified; Translations: [Polyneuropathy, unspecified] Onset: 5 Chronic Other skin disorders (1 source) Skin lesion 09-22-2021 Episodic Pancreatic disorders (not diabetes) (20 sources) Chronic pancreatitis; Translations: [Other chronic pancreatitis] Onset: 5 09-21-2024 Chronic Paralysis (1 source) Hemiplegia, unspecified affecting left nondominant side; Translations: [Hemiplegia, unspecified affecting left nondominant side] Onset: 5 Chronic Parkinson`s disease (4 sources) Symptomatic parkinsonism 05-26-2021 Chronic Residual codes; unclassified (3 sources) Family history of breast cancer 07-01-2021 Episodic Spondylosis; intervertebral disc disorders; other back problems (1 source) Spondylosis without myelopathy or radiculopathy, thoracic region; Translations: [Spondylosis without myelopathy or radiculopathy, thoracic region] Onset: 5 Chronic Spondylosis; intervertebral disc disorders; other back problems (13 sources) Neck pain; Translations: [Cervicalgia] Onset: 5 07-10-2024 Episodic Unclassified (4 sources) Patient encounter status 05-26-2021 Unclassified (1 source) Abdominal aortic aneurysm, without rupture, unspecified; Translations: [Abdominal aortic aneurysm, without rupture, unspecified] Onset: 5 Unclassified (1 source) Low back pain, unspecified; Translations: [Low back pain, unspecified] Onset: Past or Other Problems Problem Classification Problem Date Documented Da te Episodic/Chronic Abdominal pain (1 source) Unspecified abdominal pain; Translations: [Unspecified abdominal pain] Onset: 11-12-2024 Episodic Other nervous system disorders (2 sources) Anesthesia of skin; Translations: [Anesthesia of skin] Onset: 09-18-2024 Episodic Other non-traumatic joint disorders (12 sources) Pain in left shoulder; Translations: [Acute pain of left shoulder] Onset: 07-27-2024 07-10-2024 Episodic Other screening for suspected conditions (not mental disorders or infectious disease) (1 source) Encounter for screening for malignant neoplasm of prostate; Translations: [Encounter for screening for malignant neoplasm of prostate] Onset: 11-29-2024 Episodic Pancreatic disorders (not diabetes) (1 source) Acute pancreatitis without necrosis or infection, unspecified; Translations: [Acute pancreatitis without necrosis or infection, unspecified] Onset: 09-04-2024 Episodic Results Test Name Value Interpretation Reference Range Facility Thoracic Spine 3 Viewson Thoracic Spine 3 Views [facility] Imaging Services [address] [place], [place] [id number] Thoracic Spine 3 Views MR#: [id number] Acct: [id number] Name: JULI DAVIDSON JENNY Rep #: [id number] : 1960 M 64 From: Antonino Davidson MD PCP: Care Physician,No Primary Status: REG CLI Study: Thoracic Spine 3 Views Date of Exam: 04/03/25 Exam# [id number] Ordering Dr: Quirino Perry MD PROCEDURE: THORACIC SPINE 3 VIEWS 04/03/2025 REASON FOR EXAM: THORACIC SPONDYLOSIS TECHNIQUE: Procedure Code: RADSPT Modality: DX Procedure: THORACIC SPINE 3 VIEWS COMPARISON: September 2024. FINDINGS: Kyphoplasty T12. Vertebral body heights and alignment otherwise intact. Mild degenerate disc disease. No new fracture. Facet joints negative. No fractures and no dislocations. Cervicothoracic and thoracolumbar junctions negative. RAD/Thoracic Spine 3 Views IMPRESSION: Compression fracture with old kyphoplasty T12. Stable. Negative for acute abnormality of the thoracic spine. Reading Location: [id number] CC: Dr. Quirino Perry MD; No Primary Care Physician Color Separation Photographer: Signed Normal [facility] Vitamin B1, Thiamineon 03-13 VIT B1 THIAMINE 103.8 nmol/L Normal 66.5-200.0 [facility] Comment on above: Order Comment: Test( s) 924128-Qdc. B1, Whole Bloodwas developed and its performance characteristicsdetermined by [facility]. It has not been cleared or approvedby the Food and Drug Administration. Result Comment: Perf ormed at: [facility] - [facility] [address] [id number] Card Punching Machine Operator: Pamela Austin MD, Phone: [phone] Performed By: #### L 506.0200, L3300.8000, L503.0106 ####[facility] [address] [place], [place], [id number] Folate [Moles/volume] in Ser um or PlasmaOrdered By: Quirino Perry on 03-06-2025 Folate [Moles/Vol] 10.60 ng/mL 4.60-34.80 [facility] Comment on above: Hemolysis, Results w ill be affected, Requires Recollection. Folates,Serum (Folic Acid)on 03-06-2025 FOLATES,SERUM 10.60 ng/mL Normal 4.60-34.80 [facility] Comment on above: Order Comment: N Result Comment: Hemo lysis, Results will be affected, Requires Recollection. Performed By: #### L 506.0200, L3300.8000, L503.0106 ####[facility] [address] [place], [place], [id number] Serum or plasma thiamine sal surement (mass/volume)Ordered By: Quirino Perry on 03-06-2025 Thiamine [Mass/Vol] 103.8 nmol/L 66.5-200.0 [facility] Comment on above: Performed at: [facility] - [facility] [address] [id number] Director: Pamela Austin MD, Phone: [phone] Vitamin B12on 03-06-2025 Cobalamin (Vitamin B12) [Mass/Vol] 407 pg/mL Normal 180-914 [facility] Comment on above: Result Comment: AMENDED REPORT 03/06/25 1115 Vitamin B12 previously reported as: 398 pg/mL Performed By: #### L 506.0200, L3300.8000, L503.0106 ####[facility] [address] [place], [place], [id number] Vitamin B12 ser/plasOrdered By: Quirino Perry on 03-06-2025 Cobalamin (Vitamin B12) [Mass/Vol] 407 pg/mL 180-914 [facility] Comment on above: Previous reported re sult: 398 pg/mLEdited by: SRI on 03/06/25:1115 AMENDED REPORT 03/06/25 111 Vitamin B12 previously reported as: 398 pg/mL Magnetic resonance imaging r eportOrdered By: Nancy Russ on 02-10-2025 Study report [facility] Imaging Services [address] [place] [address] Spine Lumbar (Routine) MR#: [id number] Acct: [id number] Name: JULI DAVIDSON Rep #: [id number] : 1960 M 64 From: Jim Russ MD PCP: Care Physician,No Primary Status: REG CLI Study:Spine Lumbar (Routine) Date of Exam: 02/06/25 Exam# [id number] Ordering Dr: Quirino Perry MD PROCEDURE: SPINE LUMBAR (ROUTINE) 02/06/2025 REASON FOR EXAM: LUMBAR RADICULOPATHY TECHNIQUE: SPINE LUMBAR (ROUTINE) COMPARISON: Lumbar spine x-ray 01/20/2025. FINDINGS: Vertebrae: Chronic compression fracture of T12. The vertebral bodies are otherwise preserved in height and signal. Alignment: Normal. Conus Medullaris: Unremarkable. L1-2: Unremarkable. L2-3: Unremarkable. L3-4: Unremarkable. L4-5: Facet joint arthropathy. No significant foraminal or canal stenosis. L5-S1: Facet joint arthropathy. No significant foraminal or canal stenosis. Sacrum: No acute bony abnormalities. MRI/Spine Lumbar (Routine) IMPRESSION: No significant foraminal or canal stenosis. Bilateral L4-L5 facet joint arthropathy. Reading Location: [facility] CC: Dr. Quirino Perry MD; No Primary Care Physician ~ Color Separation Photographer: Signed [facility] Spine Lumbar (Routine)on Spine Lumbar (Routine) [facility] Imaging Services [address] [place], [place] [address] Spine Lumbar (Routine) MR#: [id number] Acct: [id number] Name: JULI DAVIDSON Rep #: [id number] : 1960 M 64 From: Nancy Russ MD PCP: Care Physician,No Primary Status: REG CLI Study: Spine Lumbar (Routine) Date of Exam: 02/06/25 Exam# [id number] Ordering Dr: Quirino Perry MD PROCEDURE: SPINE LUMBAR (ROUTINE) 02/06/2025 REASON FOR EXAM: LUMBAR RADICULOPATHY TECHNIQUE: SPINE LUMBAR (ROUTINE) COMPARISON: Lumbar spine x-ray 01/20/2025. FINDINGS: Vertebrae: Chronic compression fracture of T12. The vertebral bodies are otherwise preserved in height and signal. Alignment: Normal. Conus Medullaris: Unremarkable. L1-2: Unremarkable. L2-3: Unremarkable. L3-4: Unremarkable. L4-5: Facet joint arthropathy. No significant foraminal or canal stenosis. L5-S1: Facet joint arthropathy. No significant foraminal or canal stenosis. Sacrum: No acute bony abnormalities. MRI/Spine Lumbar (Routine) IMPRESSION: No significant foraminal or canal stenosis. Bilateral L4-L5 facet joint arthropathy. Reading Location[facility] CC: Dr. Quirino Perry MD; No Primary Care Physician Color Separation Photographer: Signed Normal [facility] Brain/Head without Contrasto n 02-03-2025 Brain/Head without Contrast [facility] Imaging Services [address] [place] [address] Brain/Head without Contrast MR#: [id number] Acct: [id number] Name: JULI DAVIDSON Rep #: [id number] : 1960 M 64 From: Bill Cisneros MD PCP: Care Physician,No Primary Status: PRE ER Study: Brain/Head without Contrast Date of Exam: 09/25 Exam# [id number] Ordering Dr: Rex Mazariegos DO PROCEDURE: BRAIN/HEAD WITHOUT CONTRAST 02/03/2025 REASON FOR EXAM: INJURY TECHNIQUE: BRAIN/HEAD WITHOUT CONTRAST Coronal and Sagittal reconstruction series were provided. One or more dose reduction techniques were used (e.g., Automated exposure control, adjustment of the mA and/or kV according to patient size, use of iterative reconstruction technique. RADIATION DOSE SUMMARY: CTDlvol: 45 mGy DLP: 864 mGycm COMPARISON: 07/30/2024 FINDINGS: Diffuse atrophy. No acute abnormal brain densities. No intracranial hemorrhage. No hydrocephalus or midline shift. No acute skull pathology. Bilateral lens extraction. Right anterior scalp laceration and small hematoma. CT/Brain/Head without Contrast IMPRESSION: No acute intracranial findings Reading Location: [place] [address] CC: Dr. Rex Mazariegos DO; No Primary Care Physician Color Separation Photographer: Signed Normal [facility] Emergency Department Summary on 02-03-2025 Emergency Department Summary [facility] Medical Records Department [address] [place] [address] Emergency Department Summary 02/03/25 MR#: [id number] Acct: [id number] Name: JULI DAVIDSON Rep #: [id number] : 1960 64 From: Rxe Oconnor PCP: Care Physician,No Primary Status:REG ER Location: ED HPI HPI - Fall History of Present Illness Chief Complaint: Fall Informant: patient and EMS Narrative Narrative: Presents by EMS from the large multiple falls. Positive alcohol use this evening. States he drank more than normal. He was going back to his room we could not open the door he tumbled hitting the door and wall. Did not lose consciousness. He denies being on any blood thinners. Tetanus shot was 2 years ago per patient. Denies headache neck pain chest pains. Bystanders called EMS. Reports recent cataract repair. Denies vision changes. [facility] Medical History Wears glasses Wears dentures Alcohol [...] days #5 ea 07/02/24 Unknown Rx (Lidoderm) pantoprazole 40 mg tablet,delayed 40 mg PO BID #60 tabs 11/27/24 Un known Rx release sucralfate 1 gram tablet (Carafate) 1 g PO BID #60 tabs 11/27/24 Un known Rx Allergy/AdvReac Type Severity Reaction Status Date / Time No Known Allergies Allergy Verified 02/03/25 02:59 Surgical History History of colonoscopy History of [...] ROS ROS ED Constitutional Constitutional ED: Denies fever(s) Cardiovascular Cardiovascular: Denies chest pain Respiratory/Chest Respiratory/Chest: Denies cough Gastrointestinal Gastrointestinal: Denies diarrhea or vomiting Musculoskeletal Musculoskeletal: Denies none Integumentary Reports Abrasions and wounds; Denies rash Neurologic Neurologic: Denies weakness EXAM Physical Exam Const Vital Signs: 02/03/25 02:54 02/03/25 02:59 Temperature 97.5 F L Temperature Source Oral Pulse Rate 85 Respiratory Rate 18 Respiratory Effort Normal Blood Pressure 117/77 Blood Pressure Mean 90 Pulse Ox 97 Oxygen Delivery Method Room Air Positive well nourished and well developed Constitutional Narrative: Alcohol odor, patient is alert orient x 3 he is following commands. General Appearance ED: well developed HEENT Reports normocephalic and moist mucous membranes HEENT Narrative: Left frontal abrasions with dried blood. Right brow noted laceration 2.5 cm with dried blood. Tender palpation around the eye. No proptosis or entrapment. Eyes PERRL and EOMs intact bilaterally Neck Neck Narrative: C-collar: Chest Wall inspection of chest normal and palpation of chest normal Resp normal respiratory effort and clear to auscultation bilaterally Cardio regular rate, regular rhythm and no murmurs GI normal to inspection, nondistended, normoactive bowel sounds and non-tender Palpation: soft Narrative: Incontinence of urine down his pants. Back/Spine Back/Spine Narrative: No midline back tenderness no step-off no ecchymosis. Extremity Extremity Narrative: Left upper extremity: Multiple abrasions distal forearm and hand there is no deformities. No bony tenderness. Right upper extremity: Multiple abrasions forearm and hand, no active bleeding. Lower extremities: Full range of motion negative logroll. There were bilateral (more content not included)... Normal [facility] Sinus/Facial Boneon 02-04-20 Sinus/Facial Bone [facility] Imaging Services [address] [place] [address] Sinus/Facial Bone MR#: [id number] Acct: [id number] Name: JULI DAVIDSON Rep #: [id number] : 1960 M 64 From: Bill Cisneros MD PCP: Care Physician,No Primary Status: PRE ER Study: Sinus/Facial Bone Date of Exam: 02/03/25 Exam# [id number] Ordering Dr: Rex Mazariegos DO PROCEDURE: SINUS/FACIAL BONE 02/03/2025 REASON FOR EXAM: INJURY TECHNIQUE: SINUS/FACIAL BONE Coronal and Sagittal reconstruction series were provided. One or more dose reduction techniques were used (e.g., Automated exposure control, adjustment of the mA and/or kV according to patient size, use of iterative reconstruction technique). COMPARISON: No FINDINGS: No facial fracture or dislocation. Right anterior scalp laceration and small hematoma. Status post bilateral lens extraction. No orbital soft tissue injury. CT/Sinus/Facial Bone IMPRESSION: Anterior scalp laceration. Reading Location: [facility] CC: Dr. Rex Mazariegos DO; No Primary Care Physician Color Separation Photographer: Signed Normal [facility] Spine Cervical without Contr ason 02-03-2025 Spine Cervical without Contras [facility] Imaging Services [address] [place] [address] Spine Cervical without Contras MR#: [id number] Acct: [id number] Name: JULI DAVIDSON Rep #: [id number] : 1960 M 64 From: Bill Cisneros MD PCP: Care Physician,No Primary Status: PRE ER Study: Spine Cervical without Contras Date of Exam: 0 02/03/25 Exam# [id number] Ordering Dr: Rex Mazariegos DO PROCEDURE: SPINE CERVICAL WITHOUT CONTRAS 02/03/2025 REASON FOR EXAM: INJURY TECHNIQUE: SPINE CERVICAL WITHOUT CONTRAS Coronal and Sagittal reconstruction series were provided. One or more dose reduction techniques were used (e.g., Automated exposure control, adjustment of the mA and/or kV according to patient size, use of iterative reconstruction technique. COMPARISON: No FINDINGS: Cervical spine scoliosis and degeneration. No acute fracture or dislocation. No soft tissue injury. No apical pneumothorax. Apical emphysema. Ossified stylohyoid ligaments. CT/Spine Cervical without Contras IMPRESSION: No acute injury Reading Location: [facility] CC: Dr. Rex Mazariegos DO; No Primary Care Physician Color Separation Photographer: Signed Normal [facility] Lumbar Spine 2 or 3 Viewson 07-22-2025 Lumbar Spine 2 or 3 Views [facility] Imaging Services [address] [place] [address] Lumbar Spine 2 or 3 Views MR#: [id number] Acct: [id number] Name: JULI DAVIDSON Rep #: [id number] : 1960 M 64 From: Lizzeth Mazariegos MD PCP: Care Physician,No Primary Status: REG CLI Study: Lumbar Spine 2 or 3 Views Date of Exam: Exam# [id number] Ordering Dr: Quirino Perry MD EXAM: XR [...] 2. Degenerative changes as above. Reading Location: [facility] CC: Dr. Quirino Perry MD; No Primary Care Physician Color Separation Photographer: Signed Normal [facility] Surgical pathology reportOrd ered By: Renetta Tellez on 12-03-2024 Surgical pathology study [facility] EGD Reporton 11-27-2024 EGD Report [facility] Medical Records Department [address] [place] [address] EGD Report MR#: [id number] Acct: [id number] Name: JULI DAVIDSON Rep #: [id number] : 1960 64 From: Kiko Almanzar DO PCP: Dr. Elgin Honeycutt MD Status:REG SDC Patient Name: Juli Davidson Procedure Date: 11/27/2024 [...] pathology results. Procedure Code(s): --- Professional --- 77717, Small intestinal endoscopy, enteroscopy beyond second portion of duodenum, not including ileum; with biopsy, single or multiple CPT copyright 2021 [employer]. All rights reserved. The codes documented in this report are preliminary and upon hcc coders review may be revised to meet current compliance requirements. Kiko Almanzar DO 11/27/2024 5:26:40 PM This report has been signed electronically. Number of Addenda: 0 Note Initiated On: 11/27/2024 4:43 PM 11/27/247 Date Kiko Almanzar DO Cosigner Signature: Date (if indicated) CC: Dr. Elgin Honeycutt MD; Kiko Almanzar DO Date Dictated: 11/27/24 1643 Date Transcribed: Color Separation Photographer: IRIS Signed [facility] MR/POSTOP.[facility] 11-27-2024 MR/POSTOP.[facility] Medical Records Department [address] [place] [address] Anesthesia Postop Eval I 11/27/24 1709 MR#: [id number] Acct: [id number] Name: JULI DAVIDSON Rep #: [id number] : 1960 64 From: Zia Martin CRNA PCP: Dr. Elgin Honeycutt MD Status:REG SDC Y Race: C Location: EN Anesthesia: Postop [...] document: Postop Eval 1 completed: Yes 11/27/24 1709 Date Zia Veronica DEPALLETIZER OPERATOR Cosigner Signature: Date CC: Signed Normal [facility] MR/AOESYMWS7wc 11-27-2024 [facility] Medical Records Department [address] [place] [address] Anesthesia Postop Eval II 11/27/242022 MR#: [id number] Acct: [id number] Name: JULI DAVIDSON Rep #: [id number] : 1960 64 From: Andrez Faith MD PCP: Dr. Elgin Honeycutt MD Status:REG [facility] Y Race: C Location: EN Anesthesia Postop Eval I Sum Postop Eval Completion status Anesthesia document: Postop Eval 1 completed: Yes Anesthesia Postop Eval I Summary Anesthesia Postop Eval I Summary: Anesthesia Postop Eval I: Assessment Summary Airway patent Yes 11/27/24 17:09 DEPALLETIZER OPERATOR.TNES Spontaneous unlabored Yes 11/27/24 17:09 DEPALLETIZER OPERATOR.TNES respirations Mental status nausea No 11/27/24 17:09 DEPALLETIZER OPERATOR.TNES Vomiting No 11/27/24 17:09 DEPALLETIZER OPERATOR.TNES Anesthesia Postop Eval I: Fluid Summary Crystalloid volume administer 700 11/27/24 17:09 DEPALLETIZER OPERATOR.TNES (ml) Colloids volume administered ( ml) Blood Product volume administered (ml) Total IV fluid infused 700 11/27/24 17:09 DEPALLETIZER OPERATOR.TNES Anesthesia Postop Eval I: Summary Notes Anesthesia Complication No 11/27/24 17:09 MARC Anesthesia Complication Comment: Post-operative progress note Anesthesia: Postop Eval II Evaluation Mental status: Awake and Calm Pain Level: 0 nausea: No Vomiting: No Complications Anesthesia Complication: No 11/27/242024 Date Andrez Wooten Signature: Date CC: Signed Normal [facility] Surgery Specimen Level Ileana 11-27-2024 Surgery Specimen Level IV Patient Age/Sex Location Account Attending Physician JULI DAVIDSON 64/M EN [id number] Kiko Almanzar DO Specimen: [id number] Received: 11/28/24 Status: LENNY Abraham Num: [id number] Spec Type: EGD BIOPSY Subm Dr: Kiko [...] the patient's name, date of , and "duodenum biopsy" is a 0.7 x 0.4 x 0.2 cm fragment of freeman-pink mucosal tissue. Submitted in toto in A1. [facility] 11-28-2024 Patient Age/Sex Location Account Attending Physician JULI DAVIDSON 64/M EN [id number] Kiko Almanzar DO Signed (signature on file) Dr. Renetta Tellez MD 12/03/24 1210 Normal [facility] Comment on above: Performed By: #### P SUIV ####[facility] [address] [place], [place], [address] Upper GI/w Small Bowelon Upper GI/w Small Bowel [facility] Imaging Services [address] [place], [place] [address] Upper GI/w Small Bowel MR#: [id number] Acct: [id number] Name: JULI DAVIDSON Rep #: [id number] : 1960 M 64 From: Heron Lee PCP: Dr. Elgin Honeycutt MD Status: [facility] Study: Upper GI/w Small Bowel Date of Exam: 11/06/24 Exam# [id number] Ordering Dr: Elgin Honeycutt MD EXAM: Double [...] Normal-appearing jejunal and ileal mucosa. Reading Location: [place] [address] CC: Dr. Elgin Honeycutt MD Color Separation Photographer: Signed Normal [facility] AAA Screeningon 10-15-2024 AAA Screening [facility] Cardiovascular Services [address] [place] [address] AAA Screening 10/15/24 0802 MR#: [id number] Acct: [id number] Name: JULI DAVIDSON Rep #: [id number] : 1960 64 From: Ji Francis MD Attending Dr: Dr. Elgin Honeycutt MD Status: REG CLI Ordering Dr: Elgin Honeycutt MD Date: 10/15/24 Location: [facility] Sex: M C Admitted: Reason For Study [...] Aorta IVC Iliac vasculature or bypass grafts 83634. Exam performed in department. VL/AAA Screening Interpretation Summary The dimensions of the intra-abdominal aorta are normal, without evidence of aneurysmal dilatation. The iliac arteries are also normal in caliber bilaterally. The intra-abdominal aorta and iliac arteries appear patent, demonstrating normal, pulsatile arterial flow and normal peak systolic velocities. Ordering Physician: Elgin Honeycutt Chi Referring Physician: Elgin Honeycutt Chi Performed By: China Pickard, RVT 10/15/242210 Date Ji Francis MD CC: Dr. Elgin Honeycutt MD Date Dictated: 10/15/24801 Date Transcribed: 10/15/242210 Color Separation Photographer: Signed Normal [facility] Cardiovascular ultrasound re portOrdered By: Ji Francis on 10-15-2024 Study report [facility] Cardiovascular Services [address] [place] [address] AAA Screening 10/15/24801 MR#: [id number] Acct: [id number] Name: JULI DAVIDSON Rep #:[id number] : 1960 64 From: Ji Francis MD Attending Dr: Dr. Elgin Honeycutt MD Status: REG CLI Ordering Dr: Elgin Honeycutt MD Date: Location: [facility] Sex: M C Admitted: Reason For Study [...] Aorta IVC Iliac vasculature or bypass grafts 29134. Exam performed in department. VL/AAA Screening Interpretation Summary The dimensions of the intra-abdominal aorta are normal, without evidence of aneurysmal dilatation. The iliac arteries are also normal in caliber bilaterally. The intra-abdominal aorta and iliac arteries appear patent, demonstrating normal, pulsatile arterial flow and normal peak systolic velocities. Ordering Physician: Elgin Honeycutt Chi Referring Physician: Elgin Honeycutt Chi Performed By: China Pickard RVT 10/15/24 2211 Date _ Ji Francis MD CC: Dr. Elgin Honeycutt MD ~ Date Dictated: 10/15/24 08 Date Transcribed: 10/15/242210 Color Separation Photographer: Signed [facility] Other Phone: Lumbar Spine 2 or 3 Viewson 09-26-2024 Lumbar Spine 2 or 3 Views [facility] Imaging Services [address] [place] [address] Lumbar Spine 2 or 3 Views MR#: [id number] Acct: [id number] Name: JULI DAVIDSON Rep #: [id number] : 1960 M 64 From: Nav Kong MD PCP: Dr. Elgin Honeycutt MD Status: REG CLI Study: Lumbar Spine 2 or 3 Views Date of Exam: Exam# [id number] Ordering Dr: Quirino Perry MD EXAM: Lumbar spine 2 or three views CLINICAL HISTORY: Concern for compression fracture, chronic pain COMPARISON: Thoracic spine CT 08/29/2023 TECHNIQUE: AP and lateral views lumbosacral spine, 2 images FINDINGS: 5 suq-pxg-rfntmls lumbar vertebral type bodies identified. Overlying bowel gas on the AP view. No acute compression fracture or malalignment. The disc spaces appear within limits. Previously noted compression fracture deformity of T12 again seen now with vertebroplasty present. Aortoiliac atherosclerotic calcifications. Numerous calcifications within the area of the head and neck of the pancreas noted. RAD/Lumbar Spine 2 or 3 Views IMPRESSION: 5 pdt-trg-lmkeome lumbar vertebral type bodies identified. Overlying bowel gas on the AP view. No acute compression fracture or malalignment. The disc spaces appear within limits. Previously noted compression fracture deformity of T12 again seen now with vertebroplasty present. Reading Location: [facility] CC: Dr. Quirino Perry MD; Dr. Elgin Honeycutt MD Color Separation Photographer: Signed Normal [facility] Thoracic Spine 3 Viewson Thoracic Spine 3 Views [facility] Imaging Services [address] [place] [address] Thoracic Spine 3 Views MR#: [id number] Acct: [id number] Name: JULI DAVIDSON Rep #: [id number] : 1960 M 64 From: Nav Kong MD PCP: Dr. Elgin Honeycutt MD Status: REG CLI Study: Thoracic Spine 3 Views Date of Exam: 09/26/24 Exam# [id number] Ordering Dr: Quirino Perry MD EXAM: X-ray [...] no other compression deformity identified. Reading Location: [facility] CC: Dr. Quirino Perry MD; Dr. Elgin Honeycutt MD Color Separation Photographer: Signed Normal [facility] L3410.9998on 09-25-2024 [facility] COMMENT Normal . [facility] Comment on above: Order Comment: [id number] 8SERUM OR FROZEN PLASMA Result Comment: Test Ordered: [id number] Dexamethasone, Serum Dexamethasone, Serum 310 ng/dL ES Reference Range: . This test was developed and its performance characteristics determined by [facility]. It has not been cleared or approved by the Food and Drug Administration. Reference Range: Adults baseline: <30 8:00 AM following 1 mg dexamethasone previous evenin - 295 8:00 AM following 8 mg dexamethasone (4 x 2 mg doses) previous day: 1600 - 2850 Performed at: ES - [facility] [address] [place] [id number] Card Punching Machine Operator: Philippe Herbert MD, Phone: [phone] Performed at: - [facility] [place] [id number] [place], [place] [id number] Card Punching Machine Operator: Kishan Rodriguez PhD, Phone: [phone] Performed By: #### L 501.9910, L3410.9998, L506.1001, L500.4100, L509.6001, L100.0100, L500.4050, L501.9520 ####[facility] [address] [facility] [place], [address] Magnetic resonance imaging r eportOrdered By: Joanna Guerrero on 09-24-2024 Study report [facility] Imaging Services [address] [place] [address] Spine Cervical (Routine) MR#: [id number] Acct: [id number] Name: JULI DAVIDSON Rep #: [id number] : 1960 M 64 From: Brooklynn Guerrero MD PCP: Dr. Elgin Honeycutt MD Status: [facility] Study:Spine Cervical (Routine) Date of Exam: 09/21/24 Exam# [id number] Ordering Dr: Quirino Perry MD PROCEDURE: SPINE [...] on the right at C3-4. Reading Location: [facility] CC: Dr. Quirino Perry MD; Dr. Elgin Honeycutt MD ~ Color Separation Photographer: Signed [facility] Gastroenterology Visit Repor ton 09-21-2024 Gastroenterology Visit Report [facility] Gastroenterology [address] [place] [address] OFFICE VISIT Date of Service: 09/21/24 MR#: [id number] Acct: [id number] Name: JULI DAVIDSON Rep #: [id number] : 1960 Provider: MARTÍN Vasquez Age/Sex: 64/M [place] [facility] [place]: Signed Intake Vital Signs 07/02/24 09:18 [...] to the office today for establishment with [facility]. Pt referred to [facility] from his PCP Dr. Honeycutt for chronic pancreatitis. Pt has complaints of daily abd pain that radiates all over. It is not specifically in the epigastric region. He has nausea 2-3x per week but does not vomit. He has alternating bowels with constipation and loose stools. He notes having a colonoscopy many years ago. He continues to smoke and states " I will stop when I ". He denies any alcohol use. ROS Const [...] hepatosplenomegaly, (more content not included)... Normal [facility] Spine Cervical (Routine)on 0 09-21-2024 Spine Cervical (Routine) [facility] Imaging Services [address] [place] [address] Spine Cervical (Routine) MR#: [id number] Acct: [id number] Name: JULI DAVIDSON Rep #: [id number] : 1960 M 64 From: Joanna Miller nd, MD PCP: Dr. Elgin Honeycutt MD Status: REG CLI Study: Spine Cervical (Routine) Date of Exam: Exam# [id number] Ordering Dr: Quirino Perry MD PROCEDURE: SPINE [...] on the right at C3-4. Reading Location: [facility] CC: Dr. Quirino Perry MD; Dr. Elgin Honeycutt MD Color Separation Photographer: Signed Normal [facility] Absolute lymphocyte countOrd ered By: Elgin Honeycutt on 09-20-2024 Lymphocytes Auto (Unsp spec) [#/Vol] 1.48 10*3/uL 0.83-4.51 [facility] Absolute neutrophil countOrd ered By: Elgin Honeycutt on 09-20-2024 Neutrophils (Bld) [#/Vol] 4.0 10*3/uL 2.0-7.7 [facility] Anion gap in Serum or Plasma Ordered By: Elgin Honeycutt on 09-20-2024 Anion gap [Moles/Vol] 12 mmol/L 5- [facility] Automated lymphocyte count a s percentage of total leukocytesOrdered By: Elgin Honeycutt on 09-20-2024 Lymphocytes/100 WBC Auto (Unsp spec) 24.6 % [facility] BUN/creatinine ratioOrdered By: Elgin Honeycutt on 09-20-2024 Urea nitrogen/Creatinine [Mass ratio] 9.9 mg/mg Low - [facility] Basophil percentageOrdered B y: Elgin Honeycutt on 09-20-2024 Basophils/100 WBC (Bld) 1.0 % 0- [facility] Bilirubin, totalOrdered By: Elgin Honeycutt on 09-20-2024 Bilirubin [Mass/Vol] 0.38 mg/dL 0.00-1.30 [facility] CBC W/Diff, Automatedon 09-02 Absolute Lymph 1.48 X10 3/uL Normal 0.83-4.51 [facility] Comment on above: Performed By: #### L 501.9910, L3410.9998, L506.1001, L500.4100, L509.6001, L100.0100, L500.4050, L501.9520 #### [facility] Laboratory [address] [place], [address] Absolute Neut 4.0 X10 3/uL Normal 2.0-7.7 [facility] Comment on above: Performed By: #### L 501.9910, L3410.9998, L506.1001, L500.4100, L509.6001, L100.0100, L500.4050, L501.9520 #### [facility] Laboratory [address] [facility] [place], [address] Basophils/100 WBC (Bld) 1.0 % Normal 0-1 [facility] Comment on above: Performed By: #### L 501.9910, L3410.9998, L506.1001, L500.4100, L509.6001, L100.0100, L500.4050, L501.9520 #### [facility] Laboratory [address] [place], [address] Eosinophils/100 WBC (Bld) 0.7 % Normal 0-5 [facility] Comment on above: Performed By: #### L 501.9910, L3410.9998, L506.1001, L500.4100, L509.6001, L100.0100, L500.4050, L501.9520 #### [facility] Laboratory [address] [place], [address] Erythrocyte distribution width (RBC) [Ratio] 13.6 % Normal 11.6-14.6 [facility] Comment on above: Performed By: #### L 501.9910, L3410.9998, L506.1001, L500.4100, L509.6001, L100.0100, L500.4050, L501.9520 #### [facility] Laboratory [address] [place], [place], [address] Hematocrit (Bld) [Volume fraction] 50.2 % Normal 40-54 [facility] Comment on above: Performed By: #### L 501.9910, L3410.9998, L506.1001, L500.4100, L509.6001, L100.0100, L500.4050, L501.9520 #### [facility] [address] [place], [address] Hemoglobin (Bld) [Mass/Vol] 16.9 g/dL High 13.0-16.5 [facility] Comment on above: Performed By: #### L 501.9910, L3410.9998, L506.1001, L500.4100, L509.6001, L100.0100, L500.4050, L501.9520 #### [facility] [address] [place], [address] IG% 0.300 Normal 0.0-0.9 [facility] Comment on above: Result Comment: IG% - Immature Granulocytes (promyelocytes, myelocytes and metamyelocytes) > 1% indicates that a LEFT SHIFT is Present. Performed By: #### L 501.9910, L3410.9998, L506.1001, L500.4100, L509.6001, L100.0100, L500.4050, L501.9520 #### [facility] [address] [place], [address] Lymphocytes/100 WBC (Bld) 24.6 % Normal 19-41 [facility] Comment on above: Performed By: #### L 501.9910, L3410.9998, L506.1001, L500.4100, L509.6001, L100.0100, L500.4050, L501.9520 #### [facility] [address] [place], [address] MCH (RBC) [Entitic mass] 32.1 pg High 27.0-32.0 [facility] Comment on above: Performed By: #### L 501.9910, L3410.9998, L506.1001, L500.4100, L509.6001, L100.0100, L500.4050, L501.9520 #### [facility] [address] [place], [address] MCHC (RBC) [Mass/Vol] 33.7 g/dL Normal 32-36 [facility] Comment on above: Performed By: #### L 501.9910, L3410.9998, L506.1001, L500.4100, L509.6001, L100.0100, L500.4050, L501.9520 #### [facility] [address] [place], [address] MCV (RBC) [Entitic vol] 95.3 fL High 80-94 [facility] Comment on above: Performed By: #### L 501.9910, L3410.9998, L506.1001, L500.4100, L509.6001, L100.0100, L500.4050, L501.9520 #### [facility] [address] [place], [address] Monocytes/100 WBC (Bld) 6.7 % Normal 0-10 [facility] Comment on above: Performed By: #### L 501.9910, L3410.9998, L506.1001, L500.4100, L509.6001, L100.0100, L500.4050, L501.9520 #### [facility] [address] [place], [address] Neutrophils/100 WBC (Bld) 66.7 % Normal 47-70 [facility] Comment on above: Performed By: #### L 501.9910, L3410.9998, L506.1001, L500.4100, L509.6001, L100.0100, L500.4050, L501.9520 #### [facility] [address] [facility] [place], [address] Nucleated RBC (Bld) [#/Vol] 0 10*3/uL Normal 0-5 [facility] Comment on above: Performed By: #### L 501.9910, L3410.9998, L506.1001, L500.4100, L509.6001, L100.0100, L500.4050, L501.9520 #### [facility] [address] [place], [address] Platelet mean volume (Bld) [Entitic vol] 10.1 fL Normal 6.2-12.0 [facility] Comment on above: Performed By: #### L 501.9910, L3410.9998, L506.1001, L500.4100, L509.6001, L100.0100, L500.4050, L501.9520 #### [facility] [address] [place], [address] Platelets (Bld) [#/Vol] 254 10*3/uL Normal 150-450 [facility] Comment on above: Performed By: #### L 501.9910, L3410.9998, L506.1001, L500.4100, L509.6001, L100.0100, L500.4050, L501.9520 #### [facility] [address] [place], [address] RBC (Bld) [#/Vol] 5.27 10*6/uL Normal 4.6-6.2 [facility] Comment on above: Performed By: #### L 501.9910, L3410.9998, L506.1001, L500.4100, L509.6001, L100.0100, L500.4050, L501.9520 #### [facility] [address] [place], [address] RDW SD 47.8 fl High 35.1-43.9 [facility] Comment on above: Performed By: #### L 501.9910, L3410.9998, L506.1001, L500.4100, L509.6001, L100.0100, L500.4050, L501.9520 #### [facility] [address] [place], [address] WBC (Bld) [#/Vol] 6.0 10*3/uL Normal 4.4-11.0 [facility] Comment on above: Performed By: #### L 501.9910, L3410.9998, L506.1001, L500.4100, L509.6001, L100.0100, L500.4050, L501.9520 #### [facility] [address] [place], [place], [id number] Calculated very low density lipoprotein (VLDL) cholesterol measurementOrdered By: Elgin Honeycutt on 09-20-2024 Calculated very low density lipoprotein (VLDL) cholesterol measurement 12 mg/dL 5-40 [facility] VLDL Cholesterol 12 mg/dL 5-40 [facility] Carbon dioxide, total [Moles /volume] in Central venous bloodOrdered By: Elgin Honeycutt on 09-20-2024 CO2 [Moles/Vol] 20.5 mmol/L Low 21.0-32.0 [facility] Chloride assayOrdered By: Von Honeycutt on 09-20-2024 Chloride [Moles/Vol] 101 mmol/L 98-108 [facility] Comprehensive Metabolic Prof ilon 09-20-2024 Albumin [Mass/Vol] 4.1 g/dL Normal 3.4-4.8 [facility] Comment on above: Performed By: #### L 501.9910, L3410.9998, L506.1001, L500.4100, L509.6001, L100.0100, L500.4050, L501.9520 #### [facility] [address] [place], [place], [id number] Albumin/Globulin [Mass ratio] 1.3 {ratio} Normal 0.9-2.4 [facility] Comment on above: Performed By: #### L 501.9910, L3410.9998, L506.1001, L500.4100, L509.6001, L100.0100, L500.4050, L501.9520 #### [facility] [address] [place], [address] ALK PHOS 90 U/L Normal 40-129 [facility] Comment on above: Performed By: #### L 501.9910, L3410.9998, L506.1001, L500.4100, L509.6001, L100.0100, L500.4050, L501.9520 #### [facility] [address] [place], [address] ALT [Catalytic activity/Vol] 18 U/L Normal <=46 [facility] Comment on above: Performed By: #### L 501.9910, L3410.9998, L506.1001, L500.4100, L509.6001, L100.0100, L500.4050, L501.9520 #### [facility] [address] [place], [address] AST [Catalytic activity/Vol] 20 U/L Normal <=37 [facility] Comment on above: Performed By: #### L 501.9910, L3410.9998, L506.1001, L500.4100, L509.6001, L100.0100, L500.4050, L501.9520 #### [facility] [address] [place], [address] Bilirubin [Mass/Vol] 0.38 mg/dL Normal 0.00-1.30 [facility] Comment on above: Performed By: #### L 501.9910, L3410.9998, L506.1001, L500.4100, L509.6001, L100.0100, L500.4050, L501.9520 #### [facility] [address] [place], [address] BUN/CRE 9.9 RATIO Low 10-20 [facility] Comment on above: Performed By: #### L 501.9910, L3410.9998, L506.1001, L500.4100, L509.6001, L100.0100, L500.4050, L501.9520 #### [facility] [address] [place], [address] Calcium [Mass/Vol] 9.1 mg/dL Normal 7.6-11.0 [facility] Comment on above: Performed By: #### L 501.9910, L3410.9998, L506.1001, L500.4100, L509.6001, L100.0100, L500.4050, L501.9520 #### [facility] [address] [place], [address] Chloride [Moles/Vol] 101 mmol/L Normal 98-108 [facility] Comment on above: Performed By: #### L 501.9910, L3410.9998, L506.1001, L500.4100, L509.6001, L100.0100, L500.4050, L501.9520 #### [facility] [address] [place], [address] CO2 [Moles/Vol] 20.5 mmol/L Low 21.0-32.0 [facility] Comment on above: Performed By: #### L 501.9910, L3410.9998, L506.1001, L500.4100, L509.6001, L100.0100, L500.4050, L501.9520 #### [facility] [address] [place], [address] Creatinine [Mass/Vol] 0.75 mg/dL Normal 0.70-1.20 [facility] Comment on above: Performed By: #### L 501.9910, L3410.9998, L506.1001, L500.4100, L509.6001, L100.0100, L500.4050, L501.9520 #### [facility] [address] [place], [address] GAP 12 Normal 5-15 [facility] Comment on above: Performed By: #### L 501.9910, L3410.9998, L506.1001, L500.4100, L509.6001, L100.0100, L500.4050, L501.9520 #### [facility] [address] [place], [address] GFR/1.73 sq M.predicted among non-blacks MDRD (S/P/Bld) [Vol rate/Area] 100 mL/min/{1.73_m2} Normal >60 [facility] Comment on above: Result Comment: mL/m in/1.73m2 CKD-EPI Creatinine Equation (2020) Performed By: #### L 501.9910, L3410.9998, L506.1001, L500.4100, L509.6001, L100.0100, L500.4050, L501.9520 #### [facility] [address] [place], [address] Globulin (S) [Mass/Vol] 3.1 g/dL Normal 2.2-4.2 [facility] Comment on above: Performed By: #### L 501.9910, L3410.9998, L506.1001, L500.4100, L509.6001, L100.0100, L500.4050, L501.9520 #### [facility] [address] [place], [address] Glucose [Mass/Vol] 116 mg/dL High 70-99 [facility] Comment on above: Performed By: #### L 501.9910, L3410.9998, L506.1001, L500.4100, L509.6001, L100.0100, L500.4050, L501.9520 #### [facility] [address] [place], [address] Potassium [Moles/Vol] 4.3 mmol/L Normal 3.3-5.1 [facility] Comment on above: Performed By: #### L 501.9910, L3410.9998, L506.1001, L500.4100, L509.6001, L100.0100, L500.4050, L501.9520 #### [facility] [address] [place], [address] Sodium [Moles/Vol] 134 mmol/L Normal 133-145 [facility] Comment on above: Performed By: #### L 501.9910, L3410.9998, L506.1001, L500.4100, L509.6001, L100.0100, L500.4050, L501.9520 #### [facility] [address] [place], [place], [id number] T PROT 7.2 g/dL Normal 5.9-8.4 [facility] Comment on above: Performed By: #### L 501.9910, L3410.9998, L506.1001, L500.4100, L509.6001, L100.0100, L500.4050, L501.9520 #### [facility] [address] [facility] [place], [place], [id number] Urea nitrogen [Mass/Vol] 7 mg/dL Normal 4-19 [facility] Comment on above: Performed By: #### L 501.9910, L3410.9998, L506.1001, L500.4100, L509.6001, L100.0100, L500.4050, L501.9520 #### [facility] [address] [place], [place], [id number] Eosinophil percentageOrdered By: [facility] Eosinophils/100 WBC (Bld) 0.7 % 0-5 [facility] Erythrocyte distribution wid th ratioOrdered By: [facility] on 09-20-2024 Erythrocyte distribution width (RBC) [Ratio] 13.6 % 11.6-14.6 [facility] Erythrocyte distribution wid th standard deviationOrdered By: [facility] on 09-20-2024 Erythrocyte distribution width (RBC) [Entitic vol] 47.8 fL High 35.1-43.9 [facility] Erythrocyte distribution width (RBC) [Ratio] 47.8 fl High 35.1-43.9 [facility] GFR/1.73 sq M.predicted vijay g non-blacks MDRD (S/P/Bld) [Vol rate/Area]Ordered By: Elgin Honeycutt on 09-20-2024 Estimated GFR (MDRD) Non-Af Amer 100 >60 [facility] Comment on above: mL/min/1.73m2 CKD-EP I Creatinine Equation (2020) Glomerular filtration rate ( GFR) estimation/1.73 sq m using serum, plasma, or whole bOrdered By: Elgin Honeycutt on 09-20-2024 GFR/1.73 sq M.predicted among non-blacks MDRD (S/P/Bld) [Vol rate/Area] 100 mL/min/{1.73_m2} >60 [facility] Comment on above: mL/min/1.73m2 CKD-EP I Creatinine Equation (2020) Hematocrit Auto (Bld) [Volum e fraction]Ordered By: Elgin Honeycutt on 09-20-2024 Hematocrit (Bld) [Volume fraction] 50.2 % 40-54 [facility] Hemoglobin measurementOrdere d By: Elgin Honeycutt on 09-20-2024 Hemoglobin (Bld) [Mass/Vol] 16.9 g/dL High 13.0-16.5 [facility] Immature granulocytes/100 WB C Auto (Bld)Ordered By: Elgin Honeycutt on 09-20-2024 Immature granulocytes/100 WBC (Bld) 0.300 % 0.0-0.9 [facility] Comment on above: IG% - Immature Granu locytes (promyelocytes, myelocytes and metamyelocytes) > 1% indicates that a LEFT SHIFT is Present. L506.1001on 09-20-2024 Vitamin D 25-OH 14.4 ng/mL Low 30-100 [facility] Comment on above: Result Comment: Susana min D Status Deficiency: <20 ng/mL (50nmol/L) Insufficiency: 20-30 ng/mL (50-75 nmol/L) Sufficiency: 30-100 ng/mL (75-250 nmol/L) Toxicity: >100 ng/mL (>250 nmol/L) Performed By: #### L 501.9910, L3410.9998, L506.1001, L500.4100, L509.6001, L100.0100, L500.4050, L501.9520 ####[facility] [id number] [place], [address] L509.6001on 09-20-2024 CORTISOL 1.89 ug/dL Low 6.02-18.40 [facility] Comment on above: Performed By: #### L 501.9910, L3410.9998, L506.1001, L500.4100, L509.6001, L100.0100, L500.4050, L501.9520 ####[facility] [id number] [place], [address] LDL calc ser/plasOrdered By: Elgin Honeycutt on 09-20-2024 Cholesterol in LDL [Mass/Vol] 133 mg/dL [facility] Comment on above: Umcxmjexce=447-885 m g/dL & Higher Yndu=677 mg/dL or greater LDL Cholesterol, Calculated 133 mg/dL [facility] Comment on above: Bgzjppcgrt=672-343 m g/dL & Higher Bkcx=942 mg/dL or greater Laboratory - Chemistry and C hemistry - challengeOrdered By: Elgin Honeycutt on 09-20-2024 AST [Catalytic activity/Vol] 20 U/L <38 [facility] Lipid Profileon 09-20-2024 CHOL:HDL 2.99 Normal [facility] Comment on above: Performed By: #### L 501.9910, L3410.9998, L506.1001, L500.4100, L509.6001, L100.0100, L500.4050, L501.9520 #### [facility] [address] [place], [address] Cholesterol [Mass/Vol] 218 mg/dL High <=200 [facility] Comment on above: Result Comment: Chol esterol level, Desirable <200 mg/dL Borderline high cholesterol 200-239 mg/dL High cholesterol >=240 mg/dL Recommendations of the NCEP Adult Treatment Panel for the following risk-cutoff thresholds for the [place] population. Performed By: #### L 501.9910, L3410.9998, L506.1001, L500.4100, L509.6001, L100.0100, L500.4050, L501.9520 #### [facility] [address] [place], [address] Cholesterol in HDL [Mass/Vol] 73 mg/dL Normal [facility] Comment on above: Result Comment: Ilana onal Cholesterol Education Program (NCEP) guidelines: <40 mg/dL: Low HDL-cholesterol (major risk factor for CHD) >= 60 mg/dL: High HDL-cholesterol (negative risk factor for CHD) HDL-cholesterol is affected by a number of factors, e.g. smoking, exercise, hormones, sex and age. Performed By: #### L 501.9910, L3410.9998, L506.1001, L500.4100, L509.6001, L100.0100, L500.4050, L501.9520 #### [facility] [address] [place], [address] Cholesterol in LDL [Mass/Vol] 133 mg/dL Normal [facility] Comment on above: Result Comment: Bord fkewrl=334-335 mg/dL Higher Yfoz=127 mg/dL or greater Performed By: #### L 501.9910, L3410.9998, L506.1001, L500.4100, L509.6001, L100.0100, L500.4050, L501.9520 #### [facility] [address] [place], [address] Cholesterol in VLDL [Mass/Vol] 12 mg/dL Normal 5-40 [facility] Comment on above: Performed By: #### L 501.9910, L3410.9998, L506.1001, L500.4100, L509.6001, L100.0100, L500.4050, L501.9520 #### [facility] [address] [place], [address] Triglyceride [Mass/Vol] 60 mg/dL Normal [facility] Comment on above: Result Comment: The drugs N-Acetylcysteine and Metamizole may falsely depress this assay. Normal range: <150 mg/dL Borderline High: 150-199 mg/dL High: 200-499 mg/dL Very High: >500 mg/dL Performed By: #### L 501.9910, L3410.9998, L506.1001, L500.4100, L509.6001, L100.0100, L500.4050, L501.9520 #### [facility] [address] [place], [address] Lymphocytes Auto (Unsp spec) [#/Vol]Ordered By: Elgin Honeycutt on 09-20-2024 Lymphocytes (Bld) [#/Vol] 1.48 10*3/uL 0.83-4.51 [facility] Lymphocytes/100 WBC Auto (Un sp spec)Ordered By: Elgin Honeycutt on 09-20-2024 Lymphocytes/100 WBC (Bld) 24.6 % 19-41 [facility] MCV (mean corpuscular volume ) determinationOrdered By: Elgin Honeycutt on 09-20-2024 MCV (RBC) [Entitic vol] 95.3 fL High 80-94 [facility] Mean corpuscular hemoglobin (MCH) determinationOrdered By: Elgin Honeycutt on 09-20-2024 MCH (RBC) [Entitic mass] 32.1 pg High 27.0-32.0 [facility] Mean corpuscular hemoglobin concentration (MCHC) determinationOrdered By: Elgin Honeycutt on 09-20-2024 MCHC (RBC) [Mass/Vol] 33.7 g/dL 32-36 [facility] Mean platelet volume determi nationOrdered By: Elgin Honeycutt on 09-20-2024 Platelet mean volume (Bld) [Entitic vol] 10.1 fL 6.2-12.0 [facility] Monocyte percentageOrdered B y: Elgin Honeycutt on 09-20-2024 Monocytes/100 WBC (Bld) 6.7 % 0-10 [facility] Neutrophil percentageOrdered By: Elgin Honeycutt on 09-20-2024 Neutrophils/100 WBC (Bld) 66.7 % 47-70 [facility] No Panel InformationOrdered By: Elgin Honeycutt on 09-20-2024 Cortisol AM Sample 1.89 ug/dL Low 6.02-18.40 [facility] Nucleated red blood cell per centageOrdered By: Elgin Honeycutt on 09-20-2024 Nucleated RBC/100 WBC (Bld) [Ratio] 0 % 0-5 [facility] PSA, total screeningOrdered By: Elgin Honeycutt on 09-20-2024 Prostate Specific Antigen Screen 0.97 ng/mL 0.02-4.00 [facility] Comment on above: This test was perfor med using the [employer] tPSA method. Measured values of a patient sample can vary depending on the testing procedure used. PSA values determined on patient samples by different testing procedures cannot be used interchangeably. If there is a change in PSA assays while monitoring therapy, sequential testing should be performed to confirm baseline values. PSA,Total - Annual Screenon 09-20-2024 PSA,TOT SCREEN 0.97 ng/mL Normal 0.02-4.00 [facility] Comment on above: Result Comment: This test was performed using the [employer] tPSA method. Measured values of a patient??sample can vary depending on the testing procedure used. PSA values determined on patient samples by different testing procedures cannot be used interchangeably. If there is a change in PSA assays while monitoring therapy, sequential testing should be performed to confirm baseline values. Performed By: #### L 501.9910, L3410.9998, L506.1001, L500.4100, L509.6001, L100.0100, L500.4050, L501.9520 ####[facility] [id number] [place], [address] Platelet countOrdered By: Von Honeycutt on 09-20-2024 Platelets (Bld) [#/Vol] 254 10*3/uL 150-450 [facility] Potassium (Unsp spec) [Mass/ Vol]Ordered By: Elgin Honeycutt on 09-20-2024 Potassium [Moles/Vol] 4.3 mmol/L 3.3-5.1 [facility] Potassium measurement (mass/ volume)Ordered By: Elgin Honeycutt on 09-20-2024 Potassium (Unsp spec) [Mass/Vol] 4.3 mmol/L 3.3-5.1 [facility] RBC Auto (Bld) [#/Vol]Ordere d By: Elgin Honeycutt on 09-20-2024 RBC (Bld) [#/Vol] 5.27 10*6/uL 4.6-6.2 [facility] Screening total cholesterol/ high density lipoprotein (HDL) cholesterol ratioOrdered By: Elgin Honeycutt on 09-20-2024 Cholesterol.total/Cho lesterol in HDL [Mass ratio] 2.99 {ratio} [facility] Serum creatinine measurement (mass/volume)Ordered By: Elgin Honeycutt on 09-20-2024 Creatinine [Mass/Vol] 0.75 mg/dL 0.70-1.20 [facility] Serum globulin measurementOr dered By: Elgin Honeycutt on 09-20-2024 Globulin (S) [Mass/Vol] 3.1 g/dL 2.2-4.2 [facility] Serum glucose measurement (m ass/volume)Ordered By: Elgin Honeycutt on 09-20-2024 Glucose [Mass/Vol] 116 mg/dL High 70-99 [facility] Serum or plasma alanine mckeon otransferase (ALT) measurementOrdered By: Elgin Honeycutt 09-20-2024 ALT [Catalytic activity/Vol] 18 U/L <47 [facility] Serum or plasma albumin johnathon urement (mass/volume)Ordered By: Elgin Honeycutt 09-20-2024 Albumin [Mass/Vol] 4.1 g/dL 3.4-4.8 [facility] Serum or plasma albumin/glob ulin mass ratioOrdered By: Elgin Honeycutt 09-20-2024 Albumin/Globulin [Mass ratio] 1.3 {ratio} 0.9-2.4 [facility] Serum or plasma alkaline larry sphatase measurementOrdered By: Elgin Honeycutt 09-20-2024 ALP [Catalytic activity/Vol] 90 U/L 40-129 [facility] Serum or plasma calcium johnathon urement (mass/volume)Ordered By: Elgin Honeycutt 09-20-2024 Calcium [Mass/Vol] 9.1 mg/dL 7.6-11.0 [facility] Serum or plasma cholesterol in HDL measurement (mass/volume)Ordered By: Elgin Honeycutt on 09-20-2024 Cholesterol in HDL [Mass/Vol] 73 mg/dL >40 [facility] Comment on above: National Cholesterol Education Program (NCEP) guidelines:<40 mg/dL: Low HDL-cholesterol (major risk factor for CHD)>= 60 mg/dL: High HDL-cholesterol (negative risk factor for CHD)HDL-cholesterol is affected by a number of factors, e.g. smoking, exercise, hormones, sex and age. Serum or plasma cholesterol measurement (mass/volume)Ordered By: Elgin Honeycutt on 09-20-2024 Cholesterol [Mass/Vol] 218 mg/dL High <201 [facility] Comment on above: Cholesterol level, D esirable <200 mg/dLBorderline high cholesterol 200-239 mg/dLHigh cholesterol >=240 mg/dLRecommendations of the NCEP Adult Treatment Panel for the following risk-cutoff thresholds for the [place] population. Serum or plasma urea nitroge n measurement (mass/volume)Ordered By: Elgin Honeycutt on 09-20-2024 Urea nitrogen [Mass/Vol] 7 mg/dL 4-19 [facility] Sodium levelOrdered By: Elgin Honeycutt on 09-20-2024 Sodium [Moles/Vol] 134 mmol/L 133-145 [facility] TSH DL <= 0.005 mIU/L QnOrde red By: Elgin Honeycutt on 09-20-2024 Thyroid Stimulating Hormone (TSH) 1.970 uIU/mL 0.300-4.200 [facility] TSH Qn 1.970 uIU/mL 0.300-4.200 [facility] Thyroid Stim Hormone (TSH)on 09-20-2024 TSH 1.970 uIU/mL Normal 0.300-4.200 [facility] Comment on above: Performed By: #### L 501.9910, L3410.9998, L506.1001, L500.4100, L509.6001, L100.0100, L500.4050, L501.9520 #### [facility] [address] [place], [address] Total proteinOrdered By: Elgin Honeycutt on 09-20-2024 Protein [Mass/Vol] 7.2 g/dL 5.9-8.4 [facility] Triglycerides measurementOrd ered By: Elgin Honeycutt on 09-20-2024 Triglyceride [Mass/Vol] 60 mg/dL <199 [facility] Comment on above: The drugs N-Acetylcy steine and Metamizole may falsely depress this assay. Normal range: <150 mg/dLBorderline High: 150-199 mg/dLHigh: 200-499 mg/dLVery High: >500 mg/dL Vitamin D, 25-hydroxyOrdered By: Elgin Honeycutt on 09-20-2024 Vitamin D 25-Hydroxy 14.4 ng/mL Low 30-100 [facility] Comment on above: Vitamin D StatusDefi ciency: <20 ng/mL (50nmol/L)Insufficiency: 20-30 ng/mL (50-75 nmol/L)Sufficiency: 30-100 ng/mL (75-250 nmol/L)Toxicity: >100 ng/mL (>250 nmol/L) White blood cell (WBC) count Ordered By: Elgin Honeycutt on 09-20-2024 WBC (Bld) [#/Vol] 6.0 10*3/uL 4.4-11.0 [facility] Abdomen/Pelvis WITH Contrast on 08-27-2024 Abdomen/Pelvis WITH Contrast [facility] Services [address] [place] [address] [id number] Abdomen/Pelvis WITH Contrast MR#: [id number] Acct: [id number] Name: JULI DAVIDSON Rep #: [id number] : 1960 M 64 From: Jeanmarie Townsend MD PCP: Dr. Elgin Honeycutt MD Status: REG CLI Study: Abdomen/Pelvis WITH Contrast Date of Exam: Exam# [id number] Ordering Dr: Elgin Honeycutt MD PROCEDURE: ABDOMEN/PELVIS [...] 2. Hepatic cysts 3. Bilateral adrenal adenomas, cnsmy-yubvdfw-lakz-left 4. Prostatomegaly 5. Compression fracture of T12 with prior vertebroplasty One or more dose reduction techniques were used (e.g., Automated exposure control, adjustment of the mA and/or kV according to patient size, use of iterative reconstruction technique). Reading Location: [place] CC: Dr. Elgin Honeycutt MD Color Separation Photographer: Signed Normal [facility] Absolute lymphocyte countOrd ered By: Elgin Honeycutt on 08-27-2024 Lymphocytes Auto (Unsp spec) [#/Vol] 2.51 10*3/uL 0.83-4.51 [facility] Absolute neutrophil countOrd ered By: Elgin Honeycutt on 08-27-2024 Neutrophils (Bld) [#/Vol] 3.6 10*3/uL 2.0-7.7 [facility] Albumin to globulin ratioOrd ered By: Elgin Honeycutt on 08-27-2024 Albumin/Globulin [Mass ratio] 0.9 {ratio} 0.9-2.4 [facility] Amylaseon 08-27-2024 DALIA 71 U/L Normal 25-115 [facility] Comment on above: Performed By: #### L 501.5200, L501.2450, L500.4050, L501.2400, L501.2300, L100.0100 ####[facility] [address] [place], [place], [address] Automated lymphocyte count a s percentage of total leukocytesOrdered By: Elgin Honeycutt on 08-27-2024 Lymphocytes/100 WBC Auto (Unsp spec) 34.8 % - [facility] Basophil percentageOrdered B y: Elgin Honeycutt on 08-27-2024 Basophils/100 WBC (Bld) 1.4 % High 0-1 [facility] Bilirubin, totalOrdered By: Elgin Honeycutt on 08-27-2024 Bilirubin [Mass/Vol] 0.30 mg/dL 0.20-1.00 [facility] Comment on above: For patients on eltr ombopag therapy, use of [employer] TBIL is not recommended. Blood urea nitrogen (BUN)/cr eatinine ratioOrdered By: Elgin Honeycutt on 08-27-2024 Urea nitrogen/Creatinine [Mass ratio] 6.4 mg/mg Low 10-20 [facility] CBC W/Diff, Automatedon 08-05 Absolute Lymph 2.51 X10 3/uL Normal 0.83-4.51 [facility] Comment on above: Performed By: #### L 501.5200, L501.2450, L500.4050, L501.2400, L501.2300, L100.0100 ####[facility] [address] [place], [address] Absolute Neut 3.6 X10 3/uL Normal 2.0-7.7 [facility] Comment on above: Performed By: #### L 501.5200, L501.2450, L500.4050, L501.2400, L501.2300, L100.0100 ####[facility] [address] [place], [address] Basophils/100 WBC (Bld) 1.4 % High 0-1 [facility] Comment on above: Performed By: #### L 501.5200, L501.2450, L500.4050, L501.2400, L501.2300, L100.0100 ####[facility] [address] [place], [address] Eosinophils/100 WBC (Bld) 5.1 % High 0-5 [facility] Comment on above: Performed By: #### L 501.5200, L501.2450, L500.4050, L501.2400, L501.2300, L100.0100 ####[facility] [address] [place], [address] Erythrocyte distribution width (RBC) [Ratio] 13.1 % Normal 11.6-14.6 [facility] Comment on above: Performed By: #### L 501.5200, L501.2450, L500.4050, L501.2400, L501.2300, L100.0100 ####[facility] [address] [place], [address] Hematocrit (Bld) [Volume fraction] 51.4 % Normal 40-54 [facility] Comment on above: Performed By: #### L 501.5200, L501.2450, L500.4050, L501.2400, L501.2300, L100.0100 ####[facility] [address] [place], [address] Hemoglobin (Bld) [Mass/Vol] 17.2 g/dL High 13.0-16.5 [facility] Comment on above: Performed By: #### L 501.5200, L501.2450, L500.4050, L501.2400, L501.2300, L100.0100 ####[facility] [address] [place], [address] IG% 0.300 Normal 0.0-0.9 [facility] Comment on above: Result Comment: IG% - Immature Granulocytes (promyelocytes, myelocytes and metamyelocytes) > 1% indicates that a LEFT SHIFT is Present. Performed By: #### L 501.5200, L501.2450, L500.4050, L501.2400, L501.2300, L100.0100 ####[facility] [address] [place], [address] Lymphocytes/100 WBC (Bld) 34.8 % Normal 19-41 [facility] Comment on above: Performed By: #### L 501.5200, L501.2450, L500.4050, L501.2400, L501.2300, L100.0100 ####[facility] [address] [place], [address] MCH (RBC) [Entitic mass] 32.0 pg Normal 27.0-32.0 [facility] Comment on above: Performed By: #### L 501.5200, L501.2450, L500.4050, L501.2400, L501.2300, L100.0100 ####[facility] [address] [place], [address] MCHC (RBC) [Mass/Vol] 33.5 g/dL Normal 32-36 [facility] Comment on above: Performed By: #### L 501.5200, L501.2450, L500.4050, L501.2400, L501.2300, L100.0100 ####[facility] [address] [place], [address] MCV (RBC) [Entitic vol] 95.5 fL High 80-94 [facility] Comment on above: Performed By: #### L 501.5200, L501.2450, L500.4050, L501.2400, L501.2300, L100.0100 ####[facility] [address] [place], [address] Monocytes/100 WBC (Bld) 8.7 % Normal 0-10 [facility] Comment on above: Performed By: #### L 501.5200, L501.2450, L500.4050, L501.2400, L501.2300, L100.0100 ####[facility] [address] [place], [address] Neutrophils/100 WBC (Bld) 49.7 % Normal 47-70 [facility] Comment on above: Performed By: #### L 501.5200, L501.2450, L500.4050, L501.2400, L501.2300, L100.0100 ####[facility] [address] [place], [address] Nucleated RBC (Bld) [#/Vol] 0 10*3/uL Normal 0-5 [facility] Comment on above: Performed By: #### L 501.5200, L501.2450, L500.4050, L501.2400, L501.2300, L100.0100 ####[facility] [address] [place], [address] Platelet mean volume (Bld) [Entitic vol] 9.6 fL Normal 6.2-12.0 [facility] Comment on above: Performed By: #### L 501.5200, L501.2450, L500.4050, L501.2400, L501.2300, L100.0100 ####[facility] [address] [place], [address] Platelets (Bld) [#/Vol] 307 10*3/uL Normal 150-450 [facility] Comment on above: Performed By: #### L 501.5200, L501.2450, L500.4050, L501.2400, L501.2300, L100.0100 ####[facility] [address] [place], [address] RBC (Bld) [#/Vol] 5.38 10*6/uL Normal 4.6-6.2 [facility] Comment on above: Performed By: #### L 501.5200, L501.2450, L500.4050, L501.2400, L501.2300, L100.0100 ####[facility] [address] [place], [address] RDW SD 46.5 fl High 35.1-43.9 [facility] Comment on above: Performed By: #### L 501.5200, L501.2450, L500.4050, L501.2400, L501.2300, L100.0100 ####[facility] [address] [place], [address] WBC (Bld) [#/Vol] 7.2 10*3/uL Normal 4.4-11.0 [facility] Comment on above: Performed By: #### L 501.5200, L501.2450, L500.4050, L501.2400, L501.2300, L100.0100 ####[facility] [address] [place], [address] Carbon dioxide measurementOr dered By: Elgin Honeycutt on 08-27-2024 CO2 [Moles/Vol] 22.0 mmol/L 21.0-32.0 [facility] Chloride measurementOrdered By: Elgin Honeycutt on 08-27-2024 Chloride [Moles/Vol] 101 mmol/L 98-107 [facility] Comprehensive Metabolic Prof ilon 08-27-2024 Albumin [Mass/Vol] 3.7 g/dL Normal 3.2-5.0 [facility] Comment on above: Performed By: #### L 501.5200, L501.2450, L500.4050, L501.2400, L501.2300, L100.0100 ####[facility] [address] [place], [address] Albumin/Globulin [Mass ratio] 0.9 {ratio} Normal 0.9-2.4 [facility] Comment on above: Performed By: #### L 501.5200, L501.2450, L500.4050, L501.2400, L501.2300, L100.0100 ####[facility] [address] [place], [address] ALK P 100 U/L Normal 45-117 [facility] Comment on above: Performed By: #### L 501.5200, L501.2450, L500.4050, L501.2400, L501.2300, L100.0100 ####[facility] [address] [place], [address] ALT [Catalytic activity/Vol] 27 U/L Normal 16-61 [facility] Comment on above: Performed By: #### L 501.5200, L501.2450, L500.4050, L501.2400, L501.2300, L100.0100 ####[facility] [address] [place], [address] AST [Catalytic activity/Vol] 18 U/L Normal 15-37 [facility] Comment on above: Performed By: #### L 501.5200, L501.2450, L500.4050, L501.2400, L501.2300, L100.0100 ####[facility] [address] [place], [address] Bilirubin [Mass/Vol] 0.30 mg/dL Normal 0.20-1.00 [facility] Comment on above: Result Comment: For patients on eltrombopag therapy, use of [employer] [place] TBIL is not recommended. Performed By: #### L 501.5200, L501.2450, L500.4050, L501.2400, L501.2300, L100.0100 ####[facility] [address] [place], [address] BUN/CRE 6.4 RATIO Low 10-20 [facility] Comment on above: Performed By: #### L 501.5200, L501.2450, L500.4050, L501.2400, L501.2300, L100.0100 ####[facility] [address] [place], [address] CA,Total 9.2 mg/dL Normal 8.5-10.1 [facility] Comment on above: Performed By: #### L 501.5200, L501.2450, L500.4050, L501.2400, L501.2300, L100.0100 ####[facility] [address] [place], [address] Chloride [Moles/Vol] 101 mmol/L Normal 98-107 [facility] Comment on above: Performed By: #### L 501.5200, L501.2450, L500.4050, L501.2400, L501.2300, L100.0100 ####[facility] [address] [place], [address] CO2 [Moles/Vol] 22.0 mmol/L Normal 21.0-32.0 [facility] Comment on above: Performed By: #### L 501.5200, L501.2450, L500.4050, L501.2400, L501.2300, L100.0100 ####[facility] [address] [place], [address] Creatinine [Mass/Vol] 0.78 mg/dL Normal 0.70-1.30 [facility] Comment on above: Result Comment: The validity of the calculated GFR GFRAA in patients over 70 years has not been determined. Clinical correlation is essential. Performed By: #### L 501.5200, L501.2450, L500.4050, L501.2400, L501.2300, L100.0100 ####[facility] [address] [place], [address] EST GFR - AA 128 mL/min Normal >60 [facility] Comment on above: Result Comment: Afri can [place] GFR Calc Performed By: #### L 501.5200, L501.2450, L500.4050, L501.2400, L501.2300, L100.0100 ####[facility] [address] [place], [address] GAP 11 Normal 5-15 [facility] Comment on above: Performed By: #### L 501.5200, L501.2450, L500.4050, L501.2400, L501.2300, L100.0100 ####[facility] [address] [place], [address] GFR/1.73 sq M.predicted among non-blacks MDRD (S/P/Bld) [Vol rate/Area] 105 mL/min/{1.73_m2} Normal >60 [facility] Comment on above: Result Comment: Non- GFR Calc Performed By: #### L 501.5200, L501.2450, L500.4050, L501.2400, L501.2300, L100.0100 ####[facility] [address] [place], [address] Globulin (S) [Mass/Vol] 3.9 g/dL Normal 2.2-4.2 [facility] Comment on above: Performed By: #### L 501.5200, L501.2450, L500.4050, L501.2400, L501.2300, L100.0100 ####[facility] [address] [place], [address] Glucose [Mass/Vol] 136 mg/dL High 74-106 [facility] Comment on above: Result Comment: Fast ing Glucose result greater than or equal to 126 mg/dL suggests DIABETES MELLITUS per A.D.A. criteria. Performed By: #### L 501.5200, L501.2450, L500.4050, L501.2400, L501.2300, L100.0100 ####[facility] [address] [place], [address] Potassium [Moles/Vol] 3.4 mmol/L Low 3.5-5.1 [facility] Comment on above: Performed By: #### L 501.5200, L501.2450, L500.4050, L501.2400, L501.2300, L100.0100 ####[facility] [address] [place], [address] Sodium [Moles/Vol] 134 mmol/L Low 136-145 [facility] Comment on above: Performed By: #### L 501.5200, L501.2450, L500.4050, L501.2400, L501.2300, L100.0100 ####[facility] [address] [place], [place], [address] T PROT 7.6 g/dL Normal 6.4-8.2 [facility] Comment on above: Performed By: #### L 501.5200, L501.2450, L500.4050, L501.2400, L501.2300, L100.0100 ####[facility] [address] [place], [place], [address] Urea nitrogen [Mass/Vol] 5 mg/dL Low 7-18 [facility] Comment on above: Performed By: #### L 501.5200, L501.2450, L500.4050, L501.2400, L501.2300, L100.0100 ####[facility] [address] [place], [place], [address] Eosinophil percentageOrdered By: Elgin Yinka on 08-27-2024 Eosinophils/100 WBC (Bld) 5.1 % High 0-5 [facility] Erythrocyte distribution wid th ratioOrdered By: Elgin Honeycutt on 08-27-2024 Erythrocyte distribution width (RBC) [Ratio] 13.1 % 11.6-14.6 [facility] Erythrocyte distribution wid th standard deviationOrdered By: Elgin Honeycutt on 08-27-2024 Erythrocyte distribution width (RBC) [Entitic vol] 46.5 fL High 35.1-43.9 [facility] Erythrocyte distribution width (RBC) [Ratio] 46.5 fl High 35.1-43.9 [facility] Estimated glomerular filtrat ion rate (GFR) AmericanOrdered By: Elgin Honeycutt on 08-27-2024 Estimated GFR (MDRD) Amer 128 mL/min >60 [facility] Comment on above: GFR Calc Glomerular filtration rate ( GFR) estimationOrdered By: Elgin Honeycutt on 08-27-2024 Estimated GFR (MDRD) Non-Af Amer 105 mL/min >60 [facility] Comment on above: Non- GFR Calc GFR/1.73 sq M.predicted among non-blacks MDRD (S/P/Bld) [Vol rate/Area] 105 mL/min/{1.73_m2} >60 [facility] Comment on above: Non- GFR Calc Glucose measurementOrdered B y: Elgin Honeycutt on 08-27-2024 Glucose [Mass/Vol] 136 mg/dL High 74-106 [facility] Comment on above: Fasting Glucose resu lt greater than or equal to 126 mg/dL suggests DIABETES MELLITUS per A.D.A. criteria. Hematocrit Auto (Bld) [Volum e fraction]Ordered By: Elgin Honeycutt on 08-27-2024 Hematocrit (Bld) [Volume fraction] 51.4 % 40-54 [facility] Hemoglobin measurementOrdere d By: Elgin Honeycutt on 08-27-2024 Hemoglobin (Bld) [Mass/Vol] 17.2 g/dL High 13.0-16.5 [facility] Immature granulocytes/100 WB C Auto (Bld)Ordered By: Elgin Honeycutt on 08-27-2024 Immature granulocytes/100 WBC (Bld) 0.300 % 0.0-0.9 [facility] Comment on above: IG% - Immature Granu locytes (promyelocytes, myelocytes and metamyelocytes) > 1% indicates that a LEFT SHIFT is Present. Laboratory - Chemistry and C hemistry - challengeOrdered By: Elgin Honeycutt on 08-27-2024 AST [Catalytic activity/Vol] 18 U/L 15-37 [facility] Lipaseon 08-27-2024 Lipase [Catalytic activity/Vol] 54 U/L Low 73-393 [facility] Comment on above: Performed By: #### L 501.5200, L501.2450, L500.4050, L501.2400, L501.2300, L100.0100 ####[facility] [address] [facility] [place], [place], [id number] Lipase measurementOrdered By : Elgin Honeycutt on 08-27-2024 Lipase [Catalytic activity/Vol] 54 U/L Low 73-393 [facility] Lymphocytes Auto (Unsp spec) [#/Vol]Ordered By: Elgin Honeycutt on 08-27-2024 Lymphocytes (Bld) [#/Vol] 2.51 10*3/uL 0.83-4.51 [facility] Lymphocytes/100 WBC Auto (Un sp spec)Ordered By: Elgin Honeycutt on 08-27-2024 Lymphocytes/100 WBC (Bld) 34.8 % 19-41 [facility] MCV (mean corpuscular volume ) determinationOrdered By: Elgin Honeycutt on 08-27-2024 MCV (RBC) [Entitic vol] 95.5 fL High 80-94 [facility] Magnesiumon 08-27-2024 Magnesium [Mass/Vol] 2.2 mg/dL Normal 1.6-2.6 [facility] Comment on above: Performed By: #### L 501.5200, L501.2450, L500.4050, L501.2400, L501.2300, L100.0100 ####[facility] [address] [facility] [place], [address] Magnesium measurementOrdered By: Elgin Honeycutt on 08-27-2024 Magnesium [Mass/Vol] 2.2 mg/dL 1.6-2.6 [facility] Mean corpuscular hemoglobin (MCH) determinationOrdered By: Elgin Honeycutt on 08-27-2024 MCH (RBC) [Entitic mass] 32.0 pg 27.0-32.0 [facility] Mean corpuscular hemoglobin concentration (MCHC) determinationOrdered By: Elgin Honeycutt on 08-27-2024 MCHC (RBC) [Mass/Vol] 33.5 g/dL 32-36 [facility] Mean platelet volume determi nationOrdered By: Elgin Honeycutt on 08-27-2024 Platelet mean volume (Bld) [Entitic vol] 9.6 fL 6.2-12.0 [facility] Monocyte percentageOrdered B y: Elgin Honeycutt on 08-27-2024 Monocytes/100 WBC (Bld) 8.7 % 0-10 [facility] Neutrophil percentageOrdered By: Elgin Honeycutt on 08-27-2024 Neutrophils/100 WBC (Bld) 49.7 % 47-70 [facility] Nucleated red blood cell per centageOrdered By: Elgin oHneycutt on 08-27-2024 Nucleated RBC/100 WBC (Bld) [Ratio] 0 % 0-5 [facility] Phosphoruson 08-27-2024 Phosphate [Mass/Vol] 2.3 mg/dL Low 2.5-4.9 [facility] Comment on above: Performed By: #### L 501.5200, L501.2450, L500.4050, L501.2400, L501.2300, L100.0100 ####[facility] [address] [place], [address] Phosphorus measurementOrdere d By: Elgin Honeycutt on 08-27-2024 Phosphorus Level 2.3 mg/dL Low 2.5-4.9 [facility] Platelet countOrdered By: Von Honeycutt on 08-27-2024 Platelets (Bld) [#/Vol] 307 10*3/uL 150-450 [facility] Potassium measurementOrdered By: Elgin Honeycutt on 08-27-2024 Potassium [Moles/Vol] 3.4 mmol/L Low 3.5-5.1 [facility] RBC Auto (Bld) [#/Vol]Ordere d By: Elgin Honeycutt on 08-27-2024 RBC (Bld) [#/Vol] 5.38 10*6/uL 4.6-6.2 [facility] Serum anion gap measurementO rdered By: Elgin Honeycutt on 08-27-2024 Anion gap [Moles/Vol] 11 mmol/L 5-15 [facility] Serum globulin measurementOr dered By: Elgin Honeycutt 08-27-2024 Globulin (S) [Mass/Vol] 3.9 g/dL 2.2-4.2 [facility] Serum or plasma alanine mckeon otransferase (ALT) measurementOrdered By: Elgin Honeycutt 08-27-2024 ALT [Catalytic activity/Vol] 27 U/L 16-61 [facility] Serum or plasma albumin johnathon urement (mass/volume)Ordered By: Elgin Honeycutt 08-27-2024 Albumin [Mass/Vol] 3.7 g/dL 3.2-5.0 [facility] Serum or plasma alkaline larry sphatase measurementOrdered By: Elgin Honeycutt 08-27-2024 ALP [Catalytic activity/Vol] 100 U/L 45-117 [facility] Serum or plasma amylase johnathon urement (enzymatic activity/volume)Ordered By: Elgin Honeycutt 08-27-2024 Amylase [Catalytic activity/Vol] 71 U/L 25-115 [facility] Serum or plasma calcium johnathon urement (mass/volume)Ordered By: Elgin Honeycutt 08-27-2024 Calcium [Mass/Vol] 9.2 mg/dL 8.5-10.1 [facility] Serum or plasma creatinine m easurement (mass/volume)Ordered By: Elgin Honeycutt 08-27-2024 Creatinine [Mass/Vol] 0.78 mg/dL 0.70-1.30 [facility] Comment on above: The validity of the calculated GFR & GFRAA in patients over 70 years has not been determined. Clinical correlation is essential. Serum or plasma urea nitroge n measurement (mass/volume)Ordered By: Elgin Honeycutt 08-27-2024 Urea nitrogen [Mass/Vol] 5 mg/dL Low 7-18 [facility] Sodium levelOrdered By: Elgin Honeycutt 08-27-2024 Sodium [Moles/Vol] 134 mmol/L Low 136-145 [facility] Total proteinOrdered By: Elgin Honeycutt 08-27-2024 Protein [Mass/Vol] 7.6 g/dL 6.4-8.2 [facility] White blood cell (WBC) count Ordered By: Elgin Honeycutt 08-27-2024 WBC (Bld) [#/Vol] 7.2 10*3/uL 4.4-11.0 [facility] NCS and/or EMG Patienton NCS and/or EMG Patient [facility]/Neurology [address] [place] [address] MR#: [id number] Acct: [id number] Name: JULI DAVIDSON Rep #: [id number] : 1960 64 From: Donna Salazar MD Referring Dr: Elgin Honeycutt MD Status: REG CLI Location: [facility] Date: 08/22/24 Sex: M C NCS and/or [...] Multi Select Codes Neurology Neurology Interp Codes: 42981-30 Musc test done w/n test comp (interp) (2) and 99726-42 Nrv cndj test 13/> studies (interp) 08/22/24 1205 Date Donna Salazar MD CC: Dr. Donna Salazar MD; Dr. Elgin Honeycutt MD Date Dictated: 08/22/241201 Date Transcribed: 08/22/241201 Color Separation Photographer: AA Signed Normal [facility] Brain without Contraston Brain without Contrast [facility] Imaging Services [address] [place] [address] Brain without Contrast MR#: [id number] Acct: [id number] Name: JULI DAVIDSON Rep #: [id number] : 1960 M 63 From: Vel Lee PCP: Dr. Elgin Honeycutt MD Status: REG CLI Study: Brain without Contrast Date of Exam: 07/30/24 Exam# [id number] Ordering Dr: Elgin Honeycutt MD [id number] STUDY: MRI BRAIN WITHOUT CONTRAST REASON FOR [...] EST , CC: Dr. Elgin Honeycutt MD Color Separation Photographer: Signed Normal [facility] 60-JN-Rthwzdt DOrdered By: Leonid Honeycutt on 07-03-2024 Vitamin D 25-Hydroxy 11.8 ng/mL [facility] Comment on above: Vitamin D 25(OH) Sta tus Range Deficiency <20 ng/mL (50nmol/L) Insufficiency 20 - 30 ng/mL (50 - 75 nmol/L) Sufficiency 30 - 100 ng/mL (75 - 250 nmol/L) Toxicity >100 ng/mL (>250 nmol/L) High density lipoprotein (HD L) measurementOrdered By: Elgin Honeycutt on 07-03-2024 Cholesterol in HDL [Mass/Vol] 56 mg/dL >40 [facility] Comment on above: The drugs N-Acetylcy steine and Metamizole may falsely depress this assay. Reference Range HDL <40 mg/dL Low HDL Cholesterol HDL >or= 60 mg/dL High HDL Cholesterol Lipid Profileon 07-03-2024 Cholesterol [Mass/Vol] 235 mg/dL High 200 [facility] Comment on above: Result Comment: <200 mg/dL Desirable 200-240 mg/dL Borderline >240 mg/dL High Risk Performed By: #### L 500.4100, L506.1000 ####[facility] [address] [place], [place], [id number] Cholesterol in HDL [Mass/Vol] 56 mg/dL Normal [facility] Comment on above: Result Comment: The drugs N-Acetylcysteine and Metamizole may falsely depress this assay. Reference Range HDL <40 mg/dL Low HDL Cholesterol HDL >or= 60 mg/dL High HDL Cholesterol Performed By: #### L 500.4100, L506.1000 ####[facility] [address] [place], [address] Cholesterol in LDL [Mass/Vol] 143 mg/dL High 0-130 [facility] Comment on above: Performed By: #### L 500.4100, L506.1000 ####[facility] [address] [place], [address] Cholesterol in VLDL [Mass/Vol] 36 mg/dL Normal 5-40 [facility] Comment on above: Performed By: #### L 500.4100, L506.1000 ####[facility] [address] [place], [address] Triglyceride [Mass/Vol] 181 mg/dL Normal [facility] Comment on above: Result Comment: The drugs N-Acetylcysteine and Metamizole may falsely depress this assay. Serum Triglycerides Reference Interval Normal <150 mg/dL Borderline high 150 - 199 mg/dL High 200 - 499 mg/dL Very High > or = 500 mg/dL Performed By: #### L 500.4100, L506.1000 ####[facility] [address] [place], [address] Low density lipoprotein (LDL ) cholesterol measurementOrdered By: Elgin Honeycutt on 07-03-2024 Cholesterol in LDL [Mass/Vol] 143 mg/dL High 0-130 [facility] Serum or plasma cholesterol measurement (mass/volume)Ordered By: Elgin Honeycutt on 07-03-2024 Cholesterol [Mass/Vol] 235 mg/dL High <200 [facility] Comment on above: <200 mg/dL Desirable 200-240 mg/dL Borderline >240 mg/dL High Risk Triglycerides measurementOrd ered By: Elgin Honeycutt on 07-03-2024 Triglyceride [Mass/Vol] 181 mg/dL <199 [facility] Comment on above: The drugs N-Acetylcy steine and Metamizole may falsely depress this assay.Serum Triglycerides Reference Interval Normal <150 mg/dL Borderline high 150 - 199 mg/dL High 200 - 499 mg/dL Very High > or = 500 mg/dL Very low density lipoprotein (VLDL) cholesterol measurementOrdered By: Elgin Honeycutt on 07-03-2024 VLDL Cholesterol 36 mg/dL 5-40 [facility] Vitamin D,25 Hydroxyon 07-03 Vitamin D 25-OH 11.8 ng/mL Normal [facility] Comment on above: Result Comment: Susana min D 25(OH) Status Range Deficiency <20 ng/mL (50nmol/L) Insufficiency 20 - 30 ng/mL (50 - 75 nmol/L) Sufficiency 30 - 100 ng/mL (75 - 250 nmol/L) Toxicity >100 ng/mL (>250 nmol/L) Performed By: #### L 500.4100, L506.1000 ####[facility] [address] [facility] [place], [address] 12 Lead EKGon 07-02-2024 12 Lead EKG [facility] [address] [place] [address] 12 Lead EKG 07/02/24 0929 MR#: [id number] Acct: [id number] Name: JULI DAVIDSON Rep #: [id number] : 1960 63 From: Edson Wong MD [...] normal ECG Confirmed by YAW ADHIKARI, EDSON ([id number]), food editor IDANIA AALNIS ([id number]) on 07/03/2024 7:56:09 AM Referred By: Confirmed By: EDSON WONG MD 07/03/24 0756 Date Edson Wong MD CC: Dr. Jesse Mak DO; Dr. Elgin Honeycutt MD Signed Normal [facility] Absolute neutrophil countOrd ered By: Jesse Mak on 07-02-2024 Neutrophils (Bld) [#/Vol] 6.0 10*3/uL 2.0-7.7 [facility] Basic Metabolic Profile (BMP )on 07-02-2024 BUN/CRE 7.1 RATIO Low 10-20 [facility] Comment on above: Order Comment: 'TROP ' Serial specimen #1, #2 or #3: 1 Performed By: #### L 501.4020, L100.0100, L500.2500 ####[facility] [address] [place], [address] CA,Total 9.4 mg/dL Normal 8.5-10.1 [facility] Comment on above: Order Comment: 'TROP ' Serial specimen #1, #2 or #3: 1 Performed By: #### L 501.4020, L100.0100, L500.2500 ####[facility] [address] [place], [address] Chloride [Moles/Vol] 106 mmol/L Normal 98-107 [facility] Comment on above: Order Comment: 'TROP ' Serial specimen #1, #2 or #3: 1 Performed By: #### L 501.4020, L100.0100, L500.2500 ####[facility] [address] [place], [address] CO2 [Moles/Vol] 26.0 mmol/L Normal 21.0-32.0 [facility] Comment on above: Order Comment: 'TROP ' Serial specimen #1, #2 or #3: 1 Performed By: #### L 501.4020, L100.0100, L500.2500 ####[facility] [address] [place], [address] Creatinine [Mass/Vol] 0.84 mg/dL Normal 0.70-1.30 [facility] Comment on above: Order Comment: 'TROP ' Serial specimen #1, #2 or #3: 1 Result Comment: The validity of the calculated GFR GFRAA in patients over 70 years has not been determined. Clinical correlation is essential. Performed By: #### L 501.4020, L100.0100, L500.2500 ####[facility] [address] [place], [address] ECRCL 104.79 ml/min Normal [facility] Comment on above: Order Comment: 'TROP ' Serial specimen #1, #2 or #3: 1 Performed By: #### L 501.4020, L100.0100, L500.2500 ####[facility] [address] [place], [address] EST GFR - AA 118 mL/min Normal >60 [facility] Comment on above: Order Comment: 'TROP ' Serial specimen #1, #2 or #3: 1 Result Comment: Afri can [place] GFR Calc Performed By: #### L 501.4020, L100.0100, L500.2500 ####[facility] [address] [place], [address] GAP 3 Low 5-15 [facility] Comment on above: Order Comment: 'TROP ' Serial specimen #1, #2 or #3: 1 Performed By: #### L 501.4020, L100.0100, L500.2500 ####[facility] [address] [place], [address] GFR/1.73 sq M.predicted among non-blacks MDRD (S/P/Bld) [Vol rate/Area] 97 mL/min/{1.73_m2} Normal >60 [facility] Comment on above: Order Comment: 'TROP ' Serial specimen #1, #2 or #3: 1 Result Comment: Non- GFR Calc Performed By: #### L 501.4020, L100.0100, L500.2500 ####[facility] [address] [place], [address] Glucose [Mass/Vol] 109 mg/dL High 74-106 [facility] Comment on above: Order Comment: 'TROP ' Serial specimen #1, #2 or #3: 1 Result Comment: Fast ing Glucose result from 100 to 125 mg/dL suggests IMPAIRED HOMEOSTASIS per A.D.A. criteria. Performed By: #### L 501.4020, L100.0100, L500.2500 ####[facility] [address] [place], [address] Potassium [Moles/Vol] 4.1 mmol/L Normal 3.5-5.1 [facility] Comment on above: Order Comment: 'TROP ' Serial specimen #1, #2 or #3: 1 Performed By: #### L 501.4020, L100.0100, L500.2500 ####[facility] [address] [place], [address] Sodium [Moles/Vol] 134 mmol/L Low 136-145 [facility] Comment on above: Order Comment: 'TROP ' Serial specimen #1, #2 or #3: 1 Performed By: #### L 501.4020, L100.0100, L500.2500 ####[facility] [address] [place], [address] Urea nitrogen [Mass/Vol] 6 mg/dL Low 7-18 [facility] Comment on above: Order Comment: 'TROP ' Serial specimen #1, #2 or #3: 1 Performed By: #### L 501.4020, L100.0100, L500.2500 ####[facility] [address] [place], [address] Basophil percentageOrdered B y: Jesse Mak on 07-02-2024 Basophils/100 WBC (Bld) 1.0 % 0-1 [facility] Blood urea nitrogen (BUN)/cr eatinine ratioOrdered By: Jesse Mak on 07-02-2024 Urea nitrogen/Creatinine [Mass ratio] 7.1 mg/mg Low 10-20 [facility] CBC W/Diff, Automatedon 06-05 Absolute Lymph 2.29 X10 3/uL Normal 0.83-4.51 [facility] Comment on above: Performed By: #### L 501.4020, L100.0100, L500.2500 ####[facility] [address] [place], [address] Absolute Neut 6.0 X10 3/uL Normal 2.0-7.7 [facility] Comment on above: Performed By: #### L 501.4020, L100.0100, L500.2500 ####[facility] [address] [place] [place], [address] Basophils/100 WBC (Bld) 1.0 % Normal 0-1 [facility] Comment on above: Performed By: #### L 501.4020, L100.0100, L500.2500 ####[facility] [address] [place], [address] Eosinophils/100 WBC (Bld) 3.9 % Normal 0-5 [facility] Comment on above: Performed By: #### L 501.4020, L100.0100, L500.2500 ####[facility] [address] [place], [address] Erythrocyte distribution width (RBC) [Ratio] 13.2 % Normal 11.6-14.6 [facility] Comment on above: Performed By: #### L 501.4020, L100.0100, L500.2500 ####[facility] [address] [place], [address] Hematocrit (Bld) [Volume fraction] 53.2 % Normal 40-54 [facility] Comment on above: Performed By: #### L 501.4020, L100.0100, L500.2500 ####[facility] [address] [place], [address] Hemoglobin (Bld) [Mass/Vol] 17.8 g/dL High 13.0-16.5 [facility] Comment on above: Performed By: #### L 501.4020, L100.0100, L500.2500 ####[facility] [address] [place], [address] IG% 0.400 Normal 0.0-0.9 [facility] Comment on above: Result Comment: IG% - Immature Granulocytes (promyelocytes, myelocytes and metamyelocytes) > 1% indicates that a LEFT SHIFT is Present. Performed By: #### L 501.4020, L100.0100, L500.2500 ####[facility] [address] [place], [address] Lymphocytes/100 WBC (Bld) 23.1 % Normal 19-41 [facility] Comment on above: Performed By: #### L 501.4020, L100.0100, L500.2500 ####[facility] [address] [place], [address] MCH (RBC) [Entitic mass] 32.1 pg High 27.0-32.0 [facility] Comment on above: Performed By: #### L 501.4020, L100.0100, L500.2500 ####[facility] [address] [place], [address] MCHC (RBC) [Mass/Vol] 33.5 g/dL Normal 32-36 [facility] Comment on above: Performed By: #### L 501.4020, L100.0100, L500.2500 ####[facility] [address] [place], [address] MCV (RBC) [Entitic vol] 96.0 fL High 80-94 [facility] Comment on above: Performed By: #### L 501.4020, L100.0100, L500.2500 ####[facility] [address] [place], [address] Monocytes/100 WBC (Bld) 11.3 % High 0-10 [facility] Comment on above: Performed By: #### L 501.4020, L100.0100, L500.2500 ####[facility] [address] [place], [address] Neutrophils/100 WBC (Bld) 60.3 % Normal 47-70 [facility] Comment on above: Performed By: #### L 501.4020, L100.0100, L500.2500 ####[facility] [address] [place], [address] Nucleated RBC (Bld) [#/Vol] 0 10*3/uL Normal 0-5 [facility] Comment on above: Performed By: #### L 501.4020, L100.0100, L500.2500 ####[facility] [address] [place], [address] Platelet mean volume (Bld) [Entitic vol] 10.3 fL Normal 6.2-12.0 [facility] Comment on above: Performed By: #### L 501.4020, L100.0100, L500.2500 ####[facility] [address] [place], [address] Platelets (Bld) [#/Vol] 280 10*3/uL Normal 150-450 [facility] Comment on above: Performed By: #### L 501.4020, L100.0100, L500.2500 ####[facility] [address] [place], [address] RBC (Bld) [#/Vol] 5.54 10*6/uL Normal 4.6-6.2 [facility] Comment on above: Performed By: #### L 501.4020, L100.0100, L500.2500 ####[facility] [address] [place], [address] RDW SD 47.2 fl High 35.1-43.9 [facility] Comment on above: Performed By: #### L 501.4020, L100.0100, L500.2500 ####[facility] [address] [place], [address] WBC (Bld) [#/Vol] 9.9 10*3/uL Normal 4.4-11.0 [facility] Comment on above: Performed By: #### L 501.4020, L100.0100, L500.2500 ####[facility] [address] [place], [address] Carbon dioxide measurementOr dered By: Jesse Mak on 07-02-2024 CO2 [Moles/Vol] 26.0 mmol/L 21.0-32.0 [facility] Cerv Spine 2 or 3 Viewson Cerv Spine 2 or 3 Views [facility] Imaging Services [address] [place] [address] Cerv Spine 2 or 3 Views MR#: [id number] Acct: [id number] Name: JULI DAVIDSON Rep #: [id number] : 1960 63 From: Jorge A Nuñez MD PCP: Dr. Elgin Honeycutt MD Status: REG ER Study: Cerv Spine 2 or 3 Views Date of Exam: 07/02/24 Exam# [id number] Ordering Dr: Jesse Mak DO [id number] STUDY: X-RAY - CERVICAL SPINE REASON FOR [...] Jesse Mak DO; Dr. Elgin Honeycutt MD Color Separation Photographer: Signed Normal [facility] Chest 1 View (Portable)on Chest 1 View (Portable) [facility] Imaging Services [address] [place] [address] Chest 1 View (Portable) MR#: [id number] Acct: [id number] Name: JULI DAVIDSON Rep #: [id number] : 1960 63 From: Jorge A Nuñez MD PCP: Dr. Elgin Honeycutt MD Status: REG ER Study: Chest 1 View (Portable) Date of Exam: 07/02/24 Exam# [id number] Ordering Dr: Jesse Mak DO [id number] STUDY: X-RAY CHEST REASON FOR EXAM: Male, [...] Jesse Mak DO; Dr. Elgin Honeycutt MD Color Separation Photographer: Signed Normal [facility] Chloride measurementOrdered By: Jesse Mak on 07-02-2024 Chloride [Moles/Vol] 106 mmol/L 98-107 [facility] Emergency Department Summary on 07-02-2024 Emergency Department Summary [facility] Medical Records Department [address] [place] [address] Emergency Department Summary 07/02/24 MR#: [id number] Acct: [id number] Name: JULI DAVIDSON Rep #: [id number] : 1960 63 From: Jesse Mak DO [...] murm (more content not included)... Normal [facility] Eosinophil percentageOrdered By: Jesse Mak on 07-02-2024 Eosinophils/100 WBC (Bld) 3.9 % 0-5 [facility] Erythrocyte distribution wid th ratioOrdered By: Jsese Mak on 07-02-2024 Erythrocyte distribution width (RBC) [Ratio] 13.2 % 11.6-14.6 [facility] Erythrocyte distribution wid th standard deviationOrdered By: Jesse Mak on 07-02-2024 Erythrocyte distribution width (RBC) [Entitic vol] 47.2 fL High 35.1-43.9 [facility] Estimated glomerular filtrat ion rate (GFR) AmericanOrdered By: Jesse Mak on 07-02-2024 Estimated GFR (MDRD) Amer 118 mL/min >60 [facility] Comment on above: GFR Calc Estimation of creatinine yousif aranceOrdered By: Jesse Mak on 07-02-2024 Estimated Creatinine Clearance Calc 104.79 ml/min [facility] Glomerular filtration rate ( GFR) estimationOrdered By: Jesse Mak on 12-30-2024 Estimated GFR (MDRD) Non-Af Amer 97 mL/min >60 [facility] Comment on above: Non- GFR Calc Glucose measurementOrdered B y: Jessemilton Mak on 07-02-2024 Glucose [Mass/Vol] 109 mg/dL High 74-106 [facility] Comment on above: Fasting Glucose resu lt from 100 to 125 mg/dL suggests IMPAIRED HOMEOSTASIS per A.D.A. criteria. Hematocrit Auto (Bld) [Volum e fraction]Ordered By: Jesse Mak on 07-02-2024 Hematocrit (Bld) [Volume fraction] 53.2 % 40-54 [facility] Hemoglobin measurementOrdere d By: Jesse Mak on 07-02-2024 Hemoglobin (Bld) [Mass/Vol] 17.8 g/dL High 13.0-16.5 [facility] Immature granulocytes/100 WB C Auto (Bld)Ordered By: Jesse Mak on 07-02-2024 Immature granulocytes/100 WBC (Bld) 0.400 % 0.0-0.9 [facility] Comment on above: IG% - Immature Granu locytes (promyelocytes, myelocytes and metamyelocytes) > 1% indicates that a LEFT SHIFT is Present. L501.4020on 07-02-2024 TROPONIN-I HS < 3 Low 3.0-78.0 [facility] Comment on above: Order Comment: 'TROP ' Serial specimen #1, #2 or #3: 1 Result Comment: Plea se Note: New Test Units and Gender Specific Reference Ranges. For more information see Policy Stat Procedure [facility] High Sensitivity Troponin (TNIH) and attachments. Performed By: #### L 501.4020, L100.0100, L500.2500 ####[facility] [address] [place], [address] Lymphocytes Auto (Unsp spec) [#/Vol]Ordered By: Jesse Mak on 07-02-2024 Lymphocytes (Bld) [#/Vol] 2.29 10*3/uL 0.83-4.51 [facility] Lymphocytes/100 WBC Auto (Un sp spec)Ordered By: Jesse Mak on 07-02-2024 Lymphocytes/100 WBC (Bld) 23.1 % 19-41 [facility] MCV (mean corpuscular volume ) determinationOrdered By: Jesse Mak on 07-02-2024 MCV (RBC) [Entitic vol] 96.0 fL High 80-94 [facility] Mean corpuscular hemoglobin (MCH) determinationOrdered By: Jesse Mak on 07-02-2024 MCH (RBC) [Entitic mass] 32.1 pg High 27.0-32.0 [facility] Mean corpuscular hemoglobin concentration (MCHC) determinationOrdered By: Jesse Mak on 07-02-2024 MCHC (RBC) [Mass/Vol] 33.5 g/dL 32-36 [facility] Mean platelet volume determi nationOrdered By: Jesse Mak on 07-02-2024 Platelet mean volume (Bld) [Entitic vol] 10.3 fL 6.2-12.0 [facility] Monocyte percentageOrdered B y: Jesse Mak on 07-02-2024 Monocytes/100 WBC (Bld) 11.3 % High 0-10 [facility] Neutrophil percentageOrdered By: Jesse Mak on 07-02-2024 Neutrophils/100 WBC (Bld) 60.3 % 47-70 [facility] Nucleated red blood cell per centageOrdered By: Jesse Mak on 07-02-2024 Nucleated RBC/100 WBC (Bld) [Ratio] 0 % 0-5 [facility] Platelet countOrdered By: Daron Mak on 07-02-2024 Platelets (Bld) [#/Vol] 280 10*3/uL 150-450 [facility] Potassium measurementOrdered By: Jesse Mak on 07-02-2024 Potassium [Moles/Vol] 4.1 mmol/L 3.5-5.1 [facility] RBC Auto (Bld) [#/Vol]Ordere d By: Jesse Mak on 07-02-2024 RBC (Bld) [#/Vol] 5.54 10*6/uL 4.6-6.2 [facility] Serum anion gap measurementO rdered By: Jesse Mak on 12-30-2024 Anion gap [Moles/Vol] 3 mmol/L Low 5-15 [facility] Serum or plasma calcium johnathon urement (mass/volume)Ordered By: Jesse Mak on 07-02-2024 Calcium [Mass/Vol] 9.4 mg/dL 8.5-10.1 [facility] Serum or plasma creatinine m easurement (mass/volume)Ordered By: Jesse Mak on 07-02-2024 Creatinine [Mass/Vol] 0.84 mg/dL 0.70-1.30 [facility] Comment on above: The validity of the calculated GFR & GFRAA in patients over 70 years has not been determined. Clinical correlation is essential. Serum or plasma urea nitroge n measurement (mass/volume)Ordered By: Jesse Mak on 07-02-2024 Urea nitrogen [Mass/Vol] 6 mg/dL Low 7-18 [facility] Shoulder min 2 Viewson 07-02 Shoulder min 2 Views [facility] Imaging Services [address] [place] [address] [id number] Shoulder min 2 Views MR#: [id number] Acct: [id number] Name: JULI DAVIDSON Rep #: [id number] : 1960 M 63 From: Jorge A Nuñez MD PCP: Dr. Elgin Honeycutt MD Status: [facility] ER Study: Shoulder min 2 Views Date of Exam: 07/02/24 Exam# [id number] Ordering Dr: Jesse Mak DO [id number] STUDY: X-RAY - LEFT SHOULDER REASON FOR [...] Signed: Danie Nuñez MD at 10:50 EST Reading Location ID and State: [facility] / [place] , Service support , CC: Dr. Jsese Mak DO; Dr. Elgin Honeycutt MD Color Separation Photographer: Signed Normal [facility] Sodium levelOrdered By: Randy Mak on 07-02-2024 Sodium [Moles/Vol] 134 mmol/L Low 136-145 [facility] Troponin IOrdered By: Jesse Mak on 07-02-2024 Troponin I High Sensitivity < 3 pg/mL Low 3.0-78.0 [facility] Comment on above: Please Note: New Liz t Units and Gender Specific Reference Ranges. For more information see Policy Stat Procedure [facility] High Sensitivity Troponin (TNIH) and attachments. White blood cell (WBC) count Ordered By: Jesse Mak on 07-02-2024 WBC (Bld) [#/Vol] 9.9 10*3/uL 4.4-11.0 [facility] Serum or plasma thyroid stim ulating hormone (TSH) measurement (units/volume)Ordered By: Elgin Honeycutt on 11-01-2023 TSH Qn 3.50 uIU/mL 0.358-3.74 [facility] Activated partial thrombopla stin time (aPTT) in platelet poor plasma by coagulation aOrdered By: Quirino Perry on 10-24-2023 aPTT Coag (PPP) [Time] 29.5 s 24.1-36.2 [facility] Basophil percentageOrdered B y: Quirino Perry on 10-24-2023 Hemoglobin (Bld) [Mass/Vol] 14.7 g/dL 13.0-16.5 [facility] WBC (Bld) [#/Vol] 8.2 10*3/uL 4.4-11.0 [facility] Determination of erythrocyte mean corpuscular volume (MCV)Ordered By: Quirino Perry on 10-24-2023 MCV (RBC) [Entitic vol] 106.3 fL 80-94 [facility] Erythrocyte distribution wid th ratioOrdered By: Quirino Perry on 10-24-2023 Erythrocyte distribution width (RBC) [Ratio] 13.2 % 11.6-14.6 [facility] Erythrocyte distribution wid th standard deviationOrdered By: Quirino Perry on 10-24-2023 Erythrocyte distribution width (RBC) [Entitic vol] 52.3 fL 35.1-43.9 [facility] Hematocrit Auto (Bld) [Volum e fraction]Ordered By: Quirino Perry on 10-24-2023 Hematocrit (Bld) [Volume fraction] 47.0 % 40-54 [facility] Laboratory - CoagulationOrde red By: Quirino Perry on 10-24-2023 INR Coag (Bld) [Relative time] 1.0 {INR} [facility] PT Coag (PPP) [Time] 13.2 s 11.7-14.9 [facility] Laboratory - Hematology and Cell countsOrdered By: Quirino Perry on 10-24-2023 MCH (RBC) [Entitic mass] 33.3 pg 27.0-32.0 [facility] MCHC (RBC) [Mass/Vol] 31.3 g/dL 32-36 [facility] Platelet mean volume (Bld) [Entitic vol] 10.7 fL 6.2-12.0 [facility] Platelets (Bld) [#/Vol] 325 10*3/uL 150-450 [facility] RBC Auto (Bld) [#/Vol]Ordere d By: Quirino Perry on 10-24-2023 RBC (Bld) [#/Vol] 4.42 10*6/uL 4.6-6.2 [facility] Basophil percentageOrdered B y: Elgin Honeycutt on 09-23-2023 Chloride [Moles/Vol] 109 mmol/L 98-107 [facility] Glucose [Mass/Vol] 97 mg/dL 74-106 [facility] Potassium [Moles/Vol] 4.0 mmol/L 3.5-5.1 [facility] Sodium [Moles/Vol] 141 mmol/L 136-145 [facility] Laboratory - Chemistry and C hemistry - challengeOrdered By: Elgin Honeycutt on 09-23-2023 CO2 [Moles/Vol] 27.0 mmol/L 21.0-32.0 [facility] Sodium (U) [Moles/Vol] 44 mmol/L Not Establ. [facility] Urea nitrogen/Creatinine [Mass ratio] 8.7 mg/mg 10-20 [facility] No Panel InformationOrdered By: Elgin Honeycutt on 09-23-2023 Estimated GFR (MDRD) Amer 147 mL/min >60 [facility] Comment on above: GFR Calc Estimated GFR (MDRD) Non-Af Amer 122 mL/min >60 [facility] Comment on above: Non- GFR Calc Serum or plasma calcium johnathon urement (mass/volume)Ordered By: Elgin Honeycutt on 09-23-2023 Calcium [Mass/Vol] 9.0 mg/dL 8.5-10.1 [facility] Serum or plasma creatinine m easurement (mass/volume)Ordered By: Elgin Honeycutt on 09-23-2023 Creatinine [Mass/Vol] 0.69 mg/dL 0.70-1.30 [facility] Comment on above: The validity of the calculated GFR & GFRAA in patients over 70 years has not been determined. Clinical correlation is essential. Serum or plasma urea nitroge n measurement (mass/volume)Ordered By: Elgin Honeycutt on 09-23-2023 Urea nitrogen [Mass/Vol] 6 mg/dL 7-18 [facility] Thin prep Papanicolaou smear with manual screeningOrdered By: Elgin Honeycutt on 09-23-2023 Thin prep Papanicolaou smear with manual screening 5 5-15 [facility] Thin prep Papanicolaou smear with manual screening 293 mOsm/KG 280-301 [facility] Urine osmolality measurement Ordered By: Elgin Honeycutt on 09-23-2023 Osmolality (U) [Osmolality] 144 mOsm/KG >50 [facility] Comment on above: Normal Urine Referen ce Ranges Random: 50 - 1200 mOsm/kg H20 depending on fluid intake Random: >850 mOsm/kg after 12 hour fluid restriction 24 hour: ~300 - 900 mOsm/kg H2O Absolute lymphocyte countOrd ered By: Elgin Honeycutt on 09-20-2023 Lymphocytes Auto (Unsp spec) [#/Vol] 1.64 10*3/uL 0.83-4.51 [facility] Automated lymphocyte count a s percentage of total leukocytesOrdered By: Elgin Honeycutt on 09-20-2023 Lymphocytes/100 WBC Auto (Unsp spec) 25.4 % 19-41 [facility] Basophil percentageOrdered B y: Elgin Honeycutt on 09-20-2023 Basophils/100 WBC (Bld) 2.5 % 0-1 [facility] Bilirubin [Mass/Vol] 0.40 mg/dL 0.20-1.00 [facility] Comment on above: For patients on eltr ombopag therapy, use of [employer] [facility] TBIL is not recommended. Chloride [Moles/Vol] 96 mmol/L 98-107 [facility] Cholesterol [Mass/Vol] 275 mg/dL <200 [facility] Comment on above: <200 mg/dL Desirable 200-240 mg/dL Borderline >240 mg/dL High Risk Eosinophils/100 WBC (Bld) 1.5 % 0-5 [facility] Glucose [Mass/Vol] 88 mg/dL 74-106 [facility] Hemoglobin (Bld) [Mass/Vol] 11.7 g/dL 13.0-16.5 [facility] Monocytes/100 WBC (Bld) 12.5 % 0-10 [facility] Neutrophils (Bld) [#/Vol] 3.7 10*3/uL 2.0-7.7 [facility] Neutrophils/100 WBC (Bld) 57.2 % 47-70 [facility] Potassium [Moles/Vol] 4.5 mmol/L 3.5-5.1 [facility] Protein [Mass/Vol] 7.4 g/dL 6.4-8.2 [facility] Sodium [Moles/Vol] 129 mmol/L 136-145 [facility] Triglyceride [Mass/Vol] 142 mg/dL <199 [facility] Comment on above: The drugs N-Acetylcy steine and Metamizole may falsely depress this assay.Serum Triglycerides Reference Interval Normal <150 mg/dL Borderline high 150 - 199 mg/dL High 200 - 499 mg/dL Very High > or = 500 mg/dL WBC (Bld) [#/Vol] 6.5 10*3/uL 4.4-11.0 [facility] Determination of erythrocyte mean corpuscular volume (MCV)Ordered By: [facility] Yinka on 09-20-2023 MCV (RBC) [Entitic vol] 97.0 fL 80-94 [facility] Erythrocyte distribution wid th ratioOrdered By: [facility] on 09-20-2023 Erythrocyte distribution width (RBC) [Ratio] 13.8 % 11.6-14.6 [facility] Erythrocyte distribution wid th standard deviationOrdered By: [facility] on 09-20-2023 Erythrocyte distribution width (RBC) [Entitic vol] 49.2 fL 35.1-43.9 [facility] Hematocrit Auto (Bld) [Volum e fraction]Ordered By: [facility] on 09-20-2023 Hematocrit (Bld) [Volume fraction] 35.7 % 40-54 [facility] Immature granulocytes/100 WB C Auto (Bld)Ordered By: [facility] on 09-20-2023 Immature granulocytes/100 WBC (Bld) 0.900 % 0.0-0.9 [facility] Comment on above: IG% - Immature Granu locytes (promyelocytes, myelocytes and metamyelocytes) > 1% indicates that a LEFT SHIFT is Present. Laboratory - Chemistry and C hemistry - challengeOrdered By: [facility] on 09-20-2023 Albumin/Globulin [Mass ratio] 0.8 {ratio} 0.9-2.4 [facility] ALP [Catalytic activity/Vol] 130 U/L 45-117 [facility] ALT [Catalytic activity/Vol] 41 U/L 16-61 [facility] Cholesterol in HDL [Mass/Vol] 63 mg/dL >40 [facility] Comment on above: The drugs N-Acetylcy steine and Metamizole may falsely depress this assay. Reference Range HDL <40 mg/dL Low HDL Cholesterol HDL >or= 60 mg/dL High HDL Cholesterol Cholesterol in LDL [Mass/Vol] 184 mg/dL 0-130 [facility] CO2 [Moles/Vol] 25.0 mmol/L 21.0-32.0 [facility] Globulin (S) [Mass/Vol] 4.1 g/dL 2.2-4.2 [facility] Urea nitrogen/Creatinine [Mass ratio] 3.2 mg/mg 10-20 [facility] Laboratory - Hematology and Cell countsOrdered By: Elgin Honeycutt on 09-20-2023 MCH (RBC) [Entitic mass] 31.8 pg 27.0-32.0 [facility] MCHC (RBC) [Mass/Vol] 32.8 g/dL 32-36 [facility] Nucleated RBC/100 WBC (Bld) [Ratio] 0 % 0-5 [facility] Platelet mean volume (Bld) [Entitic vol] 9.8 fL 6.2-12.0 [facility] Platelets (Bld) [#/Vol] 467 10*3/uL 150-450 [facility] No Panel InformationOrdered By: Elgin Honeycutt on 09-20-2023 Estimated GFR (MDRD) Amer 167 mL/min >60 [facility] Comment on above: GFR Calc Estimated GFR (MDRD) Non-Af Amer 138 mL/min >60 [facility] Comment on above: Non- GFR Calc Hepatitis C Antibody Non-Reactive Nonreactive [facility] Comment on above: Non Reactive: < 0.8 Equivocal: >/= 0.8 to < 1.0 Reactive: >/= 1.0The CDC requires that a reactive/equivocal HCV antibody result be sent out for confirmation. HCV Quant by PCR testing. Prostate Specific Antigen Screen 0.65 ng/mL 0.00-4.00 [facility] Comment on above: This test was perfor med using the TPSA assay method for the[facility] system. Values obtained with differentassay methods cannot be used interchangably.When changing PSA assays in the course of monitoring apatient, additional sequential testing should be carriedout to confirm baseline values. VLDL Cholesterol 28 mg/dL 5-40 [facility] RBC Auto (Bld) [#/Vol]Ordere d By: Elgin Honeycutt on 09-20-2023 RBC (Bld) [#/Vol] 3.68 10*6/uL 4.6-6.2 [facility] Serum or plasma calcium johnathon urement (mass/volume)Ordered By: Elgin Honeycutt on 09-20-2023 Calcium [Mass/Vol] 9.0 mg/dL 8.5-10.1 [facility] Serum or plasma creatinine m easurement (mass/volume)Ordered By: Elgin Honeycutt on 09-20-2023 Creatinine [Mass/Vol] 0.62 mg/dL 0.70-1.30 [facility] Comment on above: The validity of the calculated GFR & GFRAA in patients over 70 years has not been determined. Clinical correlation is essential. Serum or plasma thyroid stim ulating hormone (TSH) measurement (units/volume)Ordered By: Elgin Honeycutt on 09-20-2023 TSH Qn 7.25 uIU/mL 0.358-3.74 [facility] Serum or plasma urea nitroge n measurement (mass/volume)Ordered By: Elgin Honeycutt on 09-20-2023 Urea nitrogen [Mass/Vol] 2 mg/dL 7-18 [facility] Thin prep Papanicolaou smear with manual screeningOrdered By: Elgin Honeycutt on 09-20-2023 Thin prep Papanicolaou smear with manual screening 3.3 g/dL 3.2-5.0 [facility] Thin prep Papanicolaou smear with manual screening 31 U/L 15-37 [facility] Thin prep Papanicolaou smear with manual screening 8 5-15 [facility] Absolute lymphocyte countOrd ered By: Elgin Honeycutt on 09-13-2023 Lymphocytes Auto (Unsp spec) [#/Vol] 1.94 10*3/uL 0.83-4.51 [facility] Automated lymphocyte count a s percentage of total leukocytesOrdered By: Elgin Honeycutt on 09-13-2023 Lymphocytes/100 WBC Auto (Unsp spec) 28.4 % 19-41 [facility] Basophil percentageOrdered B y: Elgin Honeycutt on 09-13-2023 Basophils/100 WBC (Bld) 2.2 % 0-1 [facility] Chloride [Moles/Vol] 108 mmol/L 98-107 [facility] Eosinophils/100 WBC (Bld) 2.1 % 0-5 [facility] Glucose [Mass/Vol] 92 mg/dL 74-106 [facility] Hemoglobin (Bld) [Mass/Vol] 10.7 g/dL 13.0-16.5 [facility] Monocytes/100 WBC (Bld) 11.6 % 0-10 [facility] Neutrophils (Bld) [#/Vol] 3.7 10*3/uL 2.0-7.7 [facility] Neutrophils/100 WBC (Bld) 54.5 % 47-70 [facility] Potassium [Moles/Vol] 4.1 mmol/L 3.5-5.1 [facility] Sodium [Moles/Vol] 139 mmol/L 136-145 [facility] WBC (Bld) [#/Vol] 6.8 10*3/uL 4.4-11.0 [facility] Determination of erythrocyte mean corpuscular volume (MCV)Ordered By: Elgin Honeycutt on 09-13-2023 MCV (RBC) [Entitic vol] 100.3 fL 80-94 [facility] Erythrocyte distribution wid th ratioOrdered By: Elgin Honeycutt 09-13-2023 Erythrocyte distribution width (RBC) [Ratio] 14.0 % 11.6-14.6 [facility] Erythrocyte distribution wid th standard deviationOrdered By: Elgin Honeycutt 09-13-2023 Erythrocyte distribution width (RBC) [Entitic vol] 51.8 fL 35.1-43.9 [facility] Hematocrit Auto (Bld) [Volum e fraction]Ordered By: Elgin Honeycutt on 09-13-2023 Hematocrit (Bld) [Volume fraction] 33.1 % 40-54 [facility] Immature granulocytes/100 WB C Auto (Bld)Ordered By: Elgin Honeycutt 09-13-2023 Immature granulocytes/100 WBC (Bld) 1.200 % 0.0-0.9 [facility] Comment on above: IG% - Immature Granu locytes (promyelocytes, myelocytes and metamyelocytes) > 1% indicates that a LEFT SHIFT is Present. Laboratory - Chemistry and C hemistry - challengeOrdered By: Elgin Honeycutt on 09-13-2023 CO2 [Moles/Vol] 28.0 mmol/L 21.0-32.0 [facility] Urea nitrogen/Creatinine [Mass ratio] 8.2 mg/mg 10-20 [facility] Laboratory - Hematology and Cell countsOrdered By: Elgin Honeycutt 09-13-2023 MCH (RBC) [Entitic mass] 32.4 pg 27.0-32.0 [facility] MCHC (RBC) [Mass/Vol] 32.3 g/dL 32-36 [facility] Nucleated RBC/100 WBC (Bld) [Ratio] 0 % 0-5 [facility] Platelet mean volume (Bld) [Entitic vol] 9.4 fL 6.2-12.0 [facility] Platelets (Bld) [#/Vol] 489 10*3/uL 150-450 [facility] No Panel InformationOrdered By: Elgin Honeycutt on 09-13-2023 Estimated Creatinine Clearance Calc 92.98 ml/min [facility] Estimated GFR (MDRD) Amer 171 mL/min >60 [facility] Comment on above: GFR Calc Estimated GFR (MDRD) Non-Af Amer 142 mL/min >60 [facility] Comment on above: Non- GFR Calc RBC Auto (Bld) [#/Vol]Ordere d By: Elgin Honeycutt on 09-13-2023 RBC (Bld) [#/Vol] 3.30 10*6/uL 4.6-6.2 [facility] Serum or plasma calcium johnathon urement (mass/volume)Ordered By: Elgin Honeycutt on 09-13-2023 Calcium [Mass/Vol] 8.6 mg/dL 8.5-10.1 [facility] Serum or plasma creatinine m easurement (mass/volume)Ordered By: Elgin Honeycutt on 09-13-2023 Creatinine [Mass/Vol] 0.61 mg/dL 0.70-1.30 [facility] Comment on above: The validity of the calculated GFR & GFRAA in patients over 70 years has not been determined. Clinical correlation is essential. Serum or plasma urea nitroge n measurement (mass/volume)Ordered By: Elgin Honeycutt on 09-13-2023 Urea nitrogen [Mass/Vol] 5 mg/dL 7-18 [facility] Thin prep Papanicolaou smear with manual screeningOrdered By: Elgin Honeycutt on 09-13-2023 Thin prep Papanicolaou smear with manual screening 3 5-15 [facility] Absolute lymphocyte countOrd ered By: Anu Wong on 09-04-2023 Lymphocytes Auto (Unsp spec) [#/Vol] 1.18 10*3/uL 0.83-4.51 [facility] Automated lymphocyte count a s percentage of total leukocytesOrdered By: Anu Wong on 09-04-2023 Lymphocytes/100 WBC Auto (Unsp spec) 23.6 % 19-41 [facility] Basophil percentageOrdered B y: Anu Wong on 09-04-2023 Basophils/100 WBC (Bld) 1.2 % 0-1 [facility] Chloride [Moles/Vol] 109 mmol/L 98-107 [facility] Eosinophils/100 WBC (Bld) 2.2 % 0-5 [facility] Glucose [Mass/Vol] 79 mg/dL 74-106 [facility] Hemoglobin (Bld) [Mass/Vol] 11.3 g/dL 13.0-16.5 [facility] Monocytes/100 WBC (Bld) 18.8 % 0-10 [facility] Neutrophils (Bld) [#/Vol] 2.7 10*3/uL 2.0-7.7 [facility] Neutrophils/100 WBC (Bld) 53.2 % 47-70 [facility] Potassium [Moles/Vol] 3.8 mmol/L 3.5-5.1 [facility] Sodium [Moles/Vol] 137 mmol/L 136-145 [facility] WBC (Bld) [#/Vol] 5.0 10*3/uL 4.4-11.0 [facility] Determination of erythrocyte mean corpuscular volume (MCV)Ordered By: Anu Wong on 09-04-2023 MCV (RBC) [Entitic vol] 96.3 fL 80-94 [facility] Erythrocyte distribution wid th ratioOrdered By: Anu Wong on 09-04-2023 Erythrocyte distribution width (RBC) [Ratio] 15.0 % 11.6-14.6 [facility] Erythrocyte distribution wid th standard deviationOrdered By: Anu Wong on 09-04-2023 Erythrocyte distribution width (RBC) [Entitic vol] 52.9 fL 35.1-43.9 [facility] Hematocrit Auto (Bld) [Volum e fraction]Ordered By: Anu Wong on 09-04-2023 Hematocrit (Bld) [Volume fraction] 33.7 % 40-54 [facility] Immature granulocytes/100 WB C Auto (Bld)Ordered By: Anu Wong on 09-04-2023 Immature granulocytes/100 WBC (Bld) 1.000 % 0.0-0.9 [facility] Comment on above: IG% - Immature Granu locytes (promyelocytes, myelocytes and metamyelocytes) > 1% indicates that a LEFT SHIFT is Present. Laboratory - Chemistry and C hemistry - challengeOrdered By: Anu Wong on 09-04-2023 CO2 [Moles/Vol] 26.0 mmol/L 21.0-32.0 [facility] Urea nitrogen/Creatinine [Mass ratio] 14.7 mg/mg 10-20 [facility] Laboratory - Hematology and Cell countsOrdered By: Anu Wong on 09-04-2023 MCH (RBC) [Entitic mass] 32.3 pg 27.0-32.0 [facility] MCHC (RBC) [Mass/Vol] 33.5 g/dL 32-36 [facility] Nucleated RBC/100 WBC (Bld) [Ratio] 0 % 0-5 [facility] Platelet mean volume (Bld) [Entitic vol] 11.1 fL 6.2-12.0 [facility] Platelets (Bld) [#/Vol] 164 10*3/uL 150-450 [facility] No Panel InformationOrdered By: Anu Wong on 09-04-2023 Estimated Creatinine Clearance Calc 86.98 ml/min [facility] Estimated GFR (MDRD) Amer 227 mL/min >60 [facility] Comment on above: GFR Calc Estimated GFR (MDRD) Non-Af Amer 188 mL/min >60 [facility] Comment on above: Non- GFR Calc RBC Auto (Bld) [#/Vol]Ordere d By: Anu Wong on 09-04-2023 RBC (Bld) [#/Vol] 3.50 10*6/uL 4.6-6.2 [facility] Serum or plasma calcium johnathon urement (mass/volume)Ordered By: Anu Wong on 09-04-2023 Calcium [Mass/Vol] 8.6 mg/dL 8.5-10.1 [facility] Serum or plasma creatinine m easurement (mass/volume)Ordered By: Anu Wong on 09-04-2023 Creatinine [Mass/Vol] 0.48 mg/dL 0.70-1.30 [facility] Comment on above: The validity of the calculated GFR & GFRAA in patients over 70 years has not been determined. Clinical correlation is essential. Serum or plasma urea nitroge n measurement (mass/volume)Ordered By: Anu Wong on 09-04-2023 Urea nitrogen [Mass/Vol] 7 mg/dL 7-18 [facility] Thin prep Papanicolaou smear with manual screeningOrdered By: Anu Wong on 09-04-2023 Thin prep Papanicolaou smear with manual screening 2 5-15 [facility] Basophil percentageOrdered B y: Anu Wong on 09-01-2023 Bilirubin [Mass/Vol] 0.80 mg/dL 0.20-1.00 [facility] Comment on above: For patients on eltr ombopag therapy, use of [employer] [facility] TBIL is not recommended. Protein [Mass/Vol] 5.5 g/dL 6.4-8.2 [facility] Blood manual differential co mment interpretation (narrative result)Ordered By: Anu Wong on 09-01-2023 Manual differential comment Ja (Bld) [Interp] SCANNED [facility] Direct bilirubinOrdered By: Anu Wong on 09-01-2023 Bilirubin.direct [Mass/Vol] 0.37 mg/dL 0.00-0.30 [facility] Laboratory - Chemistry and C hemistry - challengeOrdered By: Anu Wong on 09-01-2023 ALP [Catalytic activity/Vol] 104 U/L 45-117 [facility] ALT [Catalytic activity/Vol] 57 U/L 16-61 [facility] CK [Catalytic activity/Vol] 645 U/L 39-308 [facility] Globulin (S) [Mass/Vol] 3.0 g/dL 2.2-4.2 [facility] Magnesium [Mass/Vol] 1.8 mg/dL 1.6-2.6 [facility] Thin prep Papanicolaou smear with manual screeningOrdered By: Anu Wong on 09-01-2023 Thin prep Papanicolaou smear with manual screening 2.5 g/dL 3.2-5.0 [facility] Thin prep Papanicolaou smear with manual screening 59 U/L 15-37 [facility] Laboratory - Chemistry and C hemistry - challengeOrdered By: Jarret Romero on 08-30-2023 Albumin/Globulin [Mass ratio] 0.9 {ratio} 0.9-2.4 [facility] Cobalamin (Vitamin B12) [Mass/Vol] 506 pg/mL 211-911 [facility] No Panel InformationOrdered By: Jarret Romero on 08-30-2023 Folate 5.80 ng/mL 3.1-55.4 [facility] Comment on above: Slight Hemolysis, Re sult may be falsely increased. Basophil percentageOrdered B y: Ida Blanca on 08-29-2023 Basophil percentage 0 SEEN /hpf 0-5 [facility] Bilirubin Test strip Ql (U)O rdered By: Ida Blanca on 08-29-2023 Bilirubin Ql (U) Negative Negative [facility] Blood platelet adequacy dete ction by light microscopyOrdered By: Li Ashley on 08-29-2023 Platelets LM Ql (Bld) MKD DEC ADEQ [facility] Ketones Test strip Ql (U)Ord ered By: Ida Blanca on 08-29-2023 Ketones Ql (U) 15 mg/dl Negative [facility] Laboratory - CoagulationOrde red By: Jarret Romero on 08-29-2023 INR Coag (Bld) [Relative time] 0.9 {INR} [facility] PT Coag (PPP) [Time] 12.5 s 11.7-14.9 [facility] Laboratory - Drug toxicology Ordered By: Jarret Romero on 08-29-2023 Amphetamines Ql (U) Negative <1000 ng/mL [facility] Benzodiazepines Ql (U) Negative < 200 ng/mL [facility] Cannabinoids Screen Ql (U) Negative < 50 ng/mL [facility] Cocaine Ql (U) Negative < 300 ng/mL [facility] Opiates Ql (U) Negative < 300 ng/mL [facility] Mucus LM Ql (Urine sed)Order ed By: Ida Blanca on 08-29-2023 Mucus Ql (Urine sed) 0 SEEN /hpf [facility] Nitrite Test strip Ql (U)Ord ered By: Ida Blanca on 08-29-2023 Nitrite Ql (U) Negative Negative [facility] No Panel InformationOrdered By: Jarret Romero on 08-29-2023 MDMA (Ecstasy) Screen Negative < 500 ng/mL [facility] Urine Barbiturates Screen Negative < 200 ng/mL [facility] Urine Drug Screen Comment [facility] Comment on above: CONFIRMATORY TESTING FOR ALL [...] Urine Methadone Screen Negative < 300 ng/mL [facility] No Panel InformationOrdered By: Ida Blanca on 08-29-2023 Urine RBC 0-5 SEEN /hpf 0-5 [facility] Protein Test strip Ql (U)Ord ered By: dIa Blanca on 08-29-2023 Protein Ql (U) Negative Negative [facility] Review by pathologistOrdered By: Li Ashley on 08-29-2023 Pathologist review Ja (Unsp spec) [Interp] Reviewed [facility] Comment on above: Previous reported re sult: Karli borrego Edited by: RGOOD on 08/30/23:1320Marked Thrombocytopenia.Clinical correlation necessary.Deepak Siddiqui M.D. 08/30/23 AMENDED REPORT 08/30/23 1320 PATH REV previously reported as: Karli borrego Squamous epithelial cells de tection in urine sediment by light microscopyOrdered By: Ida Blanca on 08-29-2023 Epithelial cells.squamous LM Ql (Urine sed) 0 SEEN /hpf 0-5 [facility] Urine blood detectionOrdered By: Ida Blanca on 08-29-2023 RBC Ql (U) 10 /ul Negative [facility] Urine clarityOrdered By: Larissa Blanca on 08-29-2023 Clarity (U) Sl. Cloudy Clear [facility] Urine color determinationOrd ered By: Ida Blanca on 08-29-2023 Color (U) Yellow Yellow [facility] Urine glucose detectionOrder ed By: Ida Blanca on 08-29-2023 Glucose Ql (U) Normal mg/dl Normal [facility] Urine leukocyte esterase det ection by dipstickOrdered By: Ida Blanca on 08-29-2023 Leukocyte esterase Test strip Ql (U) Negative Negative [facility] Urine pHOrdered By: Ida Blanca on 08-29-2023 pH (U) 7.0 [pH] 5.0 - 8.0 [facility] Urine phencyclidine (PCP) de tectionOrdered By: Jarret Romero on 08-29-2023 Phencyclidine Ql (U) Negative < 25 ng/mL [facility] Urine sediment bacteria coun t by microscopy (number/high power field)Ordered By: Ida Blanca on 08-29-2023 Bacteria LM.HPF (Urine sed) [#/Area] 0 /[HPF] None Seen [facility] Urine specific gravity measu rementOrdered By: Ida Blanca on 08-29-2023 Specific gravity (U) [Rel density] 1.005 1.002-1.030 [facility] Urine urobilinogen measureme ntOrdered By: Ida Blanca on 08-29-2023 Urobilinogen Ql (U) 1 mg/dl Normal [facility] Final Surgical Pathology Rep qasim 10-15-2021 Final Surgical Pathology Report . Pathology Reports Accession: Collected Date/Time: Received Date/Time: Pathologist: [id number] 10/13/2021 12:41 EDT 10/14/2021 13:06 EDT DO LIZZETH RIVERA Final Surgical Pathology Report DIAGNOSIS: SKIN EXCISION, LEFT MID CLAVICLE/ MID THORAX - SEBORRHEIC KERATOSIS. COMMENT: [facility] - [id number] CLINICAL INFORMATION: 20.63 mm posterior trunk, left [...] Electronically Signed by Pathology Report verified by [facility] Electronically signed by LIZZETH RIVERA DO Sign out Date: 10/15/2021 12:53 Performing Lab: [facility], [address] [place] [address] Normal [facility] ([place]) B12on 09-11-2021 Cobalamin (Vitamin B12) [Mass/Vol] 310 pg/mL Normal 211-911 [facility] ([place]) Comment on above: Performed By: #### C BC, ADIFF, ANEU, CMP, LIPID, GFR, TSH, PSA, VIDH #### [address] [address] FOLon 09-11-2021 Folate 7.66 ng/mL Normal 5.38-24.00 [facility] ([place]) Comment on above: Performed By: #### C BC, ADIFF, ANEU, CMP, LIPID, GFR, TSH, PSA, VIDH #### [address] [address] .Auto Diffon 09-10-2021 Basophil, Absolute 0.10 10 3/mcL Normal 0.00-0.19 [facility] ([place]) Comment on above: Performed By: #### C BC, ADIFF, ANEU, CMP, LIPID, GFR, TSH, PSA, VIDH #### [address] [address] Basophils/100 WBC (Bld) 1.1 % Normal 0.0-2.5 [facility] ([place]) Comment on above: Performed By: #### C BC, ADIFF, ANEU, CMP, LIPID, GFR, TSH, PSA, VIDH #### [address] [address] Eosinophil, Absolute 0.20 10 3/mcL Normal 0.00-0.40 A [facility] ([place]) Comment on above: Performed By: #### C BC, ADIFF, ANEU, CMP, LIPID, GFR, TSH, PSA, VIDH #### [address] [address] Eosinophils/100 WBC (Bld) 3.4 % Normal 0.0-7.0 [facility] ([place]) Comment on above: Performed By: #### C BC, ADIFF, ANEU, CMP, LIPID, GFR, TSH, PSA, VIDH #### [address] [address] Lymphocyte, Absolute 2.70 10 3/mcL Normal 0.77-3.85 A [facility] ([place]) Comment on above: Performed By: #### C BC, ADIFF, ANEU, CMP, LIPID, GFR, TSH, PSA, VIDH #### [address] [address] Lymphocytes/100 WBC (Bld) 41.4 % Normal 10.0-50.0 [facility] ([place]) Comment on above: Performed By: #### C BC, ADIFF, ANEU, CMP, LIPID, GFR, TSH, PSA, VIDH #### [address] [address] Monocyte, Absolute 0.60 10 3/mcL Normal 0.15-1.00 [facility] ([place]) Comment on above: Performed By: #### C BC, ADIFF, ANEU, CMP, LIPID, GFR, TSH, PSA, VIDH #### [address] [address] Monocytes/100 WBC (Bld) 8.8 % Normal 1.7-13.0 [facility] ([place]) Comment on above: Performed By: #### C BC, ADIFF, ANEU, CMP, LIPID, GFR, TSH, PSA, VIDH #### [address] [address] Neutrophils/100 WBC (Bld) 45.3 % Normal 37.0-80.0 [facility] ([place]) Comment on above: Performed By: #### C BC, ADIFF, ANEU, CMP, LIPID, GFR, TSH, PSA, VIDH #### [address] [address] .GFRon 09-10-2021 GFR 118 ml/min/1.73sqm Normal [facility] ([place]) Comment on above: Result Comment: GFR Population [...] CMP, LIPID, GFR, TSH, PSA, VIDH #### [address] [address] GFR Non- 98 ml/min/1.73sqm Normal [facility] ([place]) Comment on above: Result Comment: GFR Population [...] CMP, LIPID, GFR, TSH, PSA, VIDH #### [place] [address] .NEUABSon 09-10-2021 Neutrophil, Absolute 2.90 10 3/mcL Normal 2.85-6.16 A [facility] ([place]) Comment on above: Performed By: #### C BC, ADIFF, ANEU, CMP, LIPID, GFR, TSH, PSA, VIDH #### [place] [address] CBCon 09-10-2021 Erythrocyte distribution width (RBC) [Ratio] 13.9 % Normal 11.5-14.5 [facility] ([place]) Comment on above: Performed By: #### C BC, ADIFF, ANEU, CMP, LIPID, GFR, TSH, PSA, VIDH #### [place] [address] Hematocrit (Bld) [Volume fraction] 46.1 % Normal 42.0-52.0 [facility] ([place]) Comment on above: Performed By: #### C BC, ADIFF, ANEU, CMP, LIPID, GFR, TSH, PSA, VIDH #### [place] [address] Hgb 15.8 G/dL Normal 14.0-18.0 [facility] ([place]) Comment on above: Performed By: #### C BC, ADIFF, ANEU, CMP, LIPID, GFR, TSH, PSA, VIDH #### [place] [address] MCH (RBC) [Entitic mass] 31.6 pg High 27.0-31.2 [facility] ([place]) Comment on above: Performed By: #### C BC, ADIFF, ANEU, CMP, LIPID, GFR, TSH, PSA, VIDH #### [place] [address] MCHC 34.2 G/dL Normal 31.8-35.4 [facility] ([place]) Comment on above: Performed By: #### C BC, ADIFF, ANEU, CMP, LIPID, GFR, TSH, PSA, VIDH #### [address] [address] MCV (RBC) [Entitic vol] 92.7 fL Normal 80.0-94.0 [facility] ([place]) Comment on above: Performed By: #### C BC, ADIFF, ANEU, CMP, LIPID, GFR, TSH, PSA, VIDH #### [address] [address] Platelet 274 10 3/mcL Normal 130-400 [facility] ([place]) Comment on above: Performed By: #### C BC, ADIFF, ANEU, CMP, LIPID, GFR, TSH, PSA, VIDH #### [address] [address] Platelet mean volume (Bld) [Entitic vol] 9.5 fL Normal 7.4-10.4 [facility] ([place]) Comment on above: Performed By: #### C BC, ADIFF, ANEU, CMP, LIPID, GFR, TSH, PSA, VIDH #### [address] [address] RBC 4.98 10 6/mcL Normal 4.04-6.13 [facility] ([place]) Comment on above: Performed By: #### C BC, ADIFF, ANEU, CMP, LIPID, GFR, TSH, PSA, VIDH #### [address] [address] WBC 6.50 10 3/mcL Normal 4.60-10.80 [facility] ([place]) Comment on above: Performed By: #### C BC, ADIFF, ANEU, CMP, LIPID, GFR, TSH, PSA, VIDH #### [address] [address] CMPon 09-10-2021 Albumin Level 3.8 G/dL Normal 3.4-4.8 [facility] ([place]) Comment on above: Performed By: #### C BC, ADIFF, ANEU, CMP, LIPID, GFR, TSH, PSA, VIDH #### [address] [address] Albumin/Globulin [Mass ratio] 1.1 {ratio} Normal 1.1-2.5 [facility] ([place] Comment on above: Performed By: #### C BC, ADIFF, ANEU, CMP, LIPID, GFR, TSH, PSA, VIDH #### [address] [address] ALP [Catalytic activity/Vol] 75 U/L Normal 40-135 [facility] ([place]) Comment on above: Performed By: #### C BC, ADIFF, ANEU, CMP, LIPID, GFR, TSH, PSA, VIDH #### [address] [address] ALT [Catalytic activity/Vol] 22 U/L Normal 16-63 [facility] ([place]) Comment on above: Performed By: #### C BC, ADIFF, ANEU, CMP, LIPID, GFR, TSH, PSA, VIDH #### [address] [address] AST [Catalytic activity/Vol] 20 U/L Normal 10-40 [facility] ([place] Comment on above: Performed By: #### C BC, ADIFF, ANEU, CMP, LIPID, GFR, TSH, PSA, VIDH #### [address] [address] Bili Total 0.4 mg/dL Normal 0.2-1.0 [facility] ([place]) Comment on above: Result Comment: Use of this assay is not recommended for patients undergoing treatment with eltrombopag due to the potential for falsely elevated results. Performed By: #### C BC, ADIFF, ANEU, CMP, LIPID, GFR, TSH, PSA, VIDH #### [address] [address] BUN/Creatinine Ratio 14 ratio Normal 7-27 [facility] ([place]) Comment on above: Performed By: #### C BC, ADIFF, ANEU, CMP, LIPID, GFR, TSH, PSA, VIDH #### [address] [address] Calcium [Mass/Vol] 9.1 mg/dL Normal 8.4-10.2 [facility] ([place]) Comment on above: Performed By: #### C BC, ADIFF, ANEU, CMP, LIPID, GFR, TSH, PSA, VIDH #### [address] [address] Chloride [Moles/Vol] 103 mmol/L Normal 98-107 [facility] ([place]) Comment on above: Performed By: #### C BC, ADIFF, ANEU, CMP, LIPID, GFR, TSH, PSA, VIDH #### [place] [id number] CO2 [Moles/Vol] 22 mmol/L Low 23-31 [facility] ([place]) Comment on above: Performed By: #### C BC, ADIFF, ANEU, CMP, LIPID, GFR, TSH, PSA, VIDH #### [address] [address] Creatinine [Mass/Vol] 0.80 mg/dL Normal 0.70-1.30 [facility] ([place]) Comment on above: Performed By: #### C BC, ADIFF, ANEU, CMP, LIPID, GFR, TSH, PSA, VIDH #### [place] [address] Electrolyte Balance 14.0 mEq/L Normal 4.0-15.0 [facility] ([place]) Comment on above: Performed By: #### C BC, ADIFF, ANEU, CMP, LIPID, GFR, TSH, PSA, VIDH #### [place] [address] Globulin 3.5 G/dL Normal [facility] ([place]) Comment on above: Performed By: #### C BC, ADIFF, ANEU, CMP, LIPID, GFR, TSH, PSA, VIDH #### [place] [address] Glucose [Mass/Vol] 90 mg/dL Normal 80-115 [facility] ([place]) Comment on above: Performed By: #### C BC, ADIFF, ANEU, CMP, LIPID, GFR, TSH, PSA, VIDH #### [address] [address] Potassium [Moles/Vol] 5.2 mmol/L High 3.5-5.1 [facility] ([place]) Comment on above: Performed By: #### C BC, ADIFF, ANEU, CMP, LIPID, GFR, TSH, PSA, VIDH #### [address] [address] Sodium [Moles/Vol] 139 mmol/L Normal 136-145 [facility] ([place] Comment on above: Performed By: #### C BC, ADIFF, ANEU, CMP, LIPID, GFR, TSH, PSA, VIDH #### [address] [address] Total Protein 7.3 G/dL Normal 6.4-8.2 [facility] ([place]) Comment on above: Performed By: #### C BC, ADIFF, ANEU, CMP, LIPID, GFR, TSH, PSA, VIDH #### [address] [address] Urea nitrogen [Mass/Vol] 11 mg/dL Normal 7-18 [facility] ([place]) Comment on above: Performed By: #### C BC, ADIFF, ANEU, CMP, LIPID, GFR, TSH, PSA, VIDH #### [address] [address] LABORATORYOrdered By: Mayda Spencer on 09-10-2021 Albumin [...] 09-10-2021 Cholesterol [Mass/Vol] 236 mg/dL High 0-200 [facility] ([place]) Comment on above: Result Comment: Chol esterol Reference Interval: Less than 200 Desirable 200-239 Borderline high risk 240 and above High risk Performed By: #### C BC, ADIFF, ANEU, CMP, LIPID, GFR, TSH, PSA, VIDH #### [address] [address] Cholesterol in HDL [Mass/Vol] 63 mg/dL High 40-60 [facility] ([place] Comment on above: Performed By: #### C BC, ADIFF, ANEU, CMP, LIPID, GFR, TSH, PSA, VIDH #### [address] [address] Cholesterol in LDL [Mass/Vol] 161 mg/dL High 0-130 [facility] ([place] Comment on above: Performed By: #### C BC, ADIFF, ANEU, CMP, LIPID, GFR, TSH, PSA, VIDH #### [address] [address] Triglyceride [Mass/Vol] 58 mg/dL Normal 0-150 [facility] ([place]) Comment on above: Result Comment: Trig lyceride Reference Interval: Less than 150 Normal 150-199 Borderline high risk 200-499 High risk 500 or higher Very high risk Performed By: #### C BC, ADIFF, ANEU, CMP, LIPID, GFR, TSH, PSA, VIDH #### [address] [address] VIDHon 09-10-2021 Vit. D 25-Hydroxy 21.8 ng/mL Normal [facility] ([place]) Comment on above: Result Comment: Inte rpretive Values Based on Total 25(OH) Vitamin D: Deficient <20 ng/mL Insufficient 20 - <30 ng/mL Sufficient 30-100 ng/mL Performed By: #### C BC, ADIFF, ANEU, CMP, LIPID, GFR, TSH, PSA, VIDH #### [facility] [address] [place], [place] [address] [place] MAMMOGRAM DIAGNOSTIC BILA TERAL W/TOMOon 07-01-2021 [place] MAMMOGRAM DIAGNOSTIC BILATERAL W/KYREE ORIGINAL FROM: [facility] [address] [place] [address] PROCEDURE FOR: JULI DAVIDSON [address] [place] [address] Home: PID#: [id number] Exam#: [id number] : 1960 Age: 60 TO: JUAN DELATORRE [place] [address] Fax: NO FAX EXAMINATION: DIAGNOSTIC BILATERAL MAMMOGRAM [...] CLINICAL: BILATERAL BREAST TENDERNESS BILATERAL NIPPLE DISCHARGE. 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 Table Setter: LUCIA BURTON RT,MS letter sent: Normal BI-RADS 1 and 2 Ultrasound BI-RADS: 2 Benign Normal [facility] ([place]) .Auto Diffon 06-11-2021 Basophil, Absolute 0.10 10 3/mcL Normal 0.00-0.19 [facility]) Comment on above: Performed By: #### C BC, ADIFF, ANEU, CMP, LIPID, GFR, TSH, PSA, VIDH #### [place] [address] Basophils/100 WBC (Bld) 1.2 % Normal 0.0-2.5 [facility] ([place]) Comment on above: Performed By: #### C BC, ADIFF, ANEU, CMP, LIPID, GFR, TSH, PSA, VIDH #### [address] [address] Eosinophil, Absolute 0.30 10 3/mcL Normal 0.00-0.40 A [facility] ([place]) Comment on above: Performed By: #### C BC, ADIFF, ANEU, CMP, LIPID, GFR, TSH, PSA, VIDH #### [address] [address] Eosinophils/100 WBC (Bld) 3.2 % Normal 0.0-7.0 [facility] ([place]) Comment on above: Performed By: #### C BC, ADIFF, ANEU, CMP, LIPID, GFR, TSH, PSA, VIDH #### [address] [address] Lymphocyte, Absolute 2.50 10 3/mcL Normal 0.77-3.85 A [facility] ([place]) Comment on above: Performed By: #### C BC, ADIFF, ANEU, CMP, LIPID, GFR, TSH, PSA, VIDH #### [address] [address] Lymphocytes/100 WBC (Bld) 30.4 % Normal 10.0-50.0 [facility] ([place]) Comment on above: Performed By: #### C BC, ADIFF, ANEU, CMP, LIPID, GFR, TSH, PSA, VIDH #### [address] [address] Monocyte, Absolute 0.70 10 3/mcL Normal 0.15-1.00 [facility] ([place]) Comment on above: Performed By: #### C BC, ADIFF, ANEU, CMP, LIPID, GFR, TSH, PSA, VIDH #### [address] [address] Monocytes/100 WBC (Bld) 8.2 % Normal 1.7-13.0 [facility] ([place]) Comment on above: Performed By: #### C BC, ADIFF, ANEU, CMP, LIPID, GFR, TSH, PSA, VIDH #### [address] [address] Neutrophils/100 WBC (Bld) 57.0 % Normal 37.0-80.0 [facility] ([place]) Comment on above: Performed By: #### C BC, ADIFF, ANEU, CMP, LIPID, GFR, TSH, PSA, VIDH #### [place] [address] [address] .GFRon 06-11-2021 GFR 130 ml/min/1.73sqm Normal [facility] ([place]) Comment on above: Result Comment: GFR Population [...] CMP, LIPID, GFR, TSH, PSA, VIDH #### [place] [id number] [place], [place] [address] GFR Non- 107 ml/min/1.73sqm Normal [facility] ([place]) Comment on above: Result Comment: GFR Population [...] CMP, LIPID, GFR, TSH, PSA, VIDH #### [address] [address] .NEUABSon 06-11-2021 Neutrophil, Absolute 4.70 10 3/mcL Normal 2.85-6.16 A [facility] ([place]) Comment on above: Performed By: #### C BC, ADIFF, ANEU, CMP, LIPID, GFR, TSH, PSA, VIDH #### [address] [address] CBCon 06-11-2021 Erythrocyte distribution width (RBC) [Ratio] 13.7 % Normal 11.5-14.5 [facility] ([place]) Comment on above: Performed By: #### C BC, ADIFF, ANEU, CMP, LIPID, GFR, TSH, PSA, VIDH #### [address] [address] Hematocrit (Bld) [Volume fraction] 47.3 % Normal 42.0-52.0 [facility] ([place]) Comment on above: Performed By: #### C BC, ADIFF, ANEU, CMP, LIPID, GFR, TSH, PSA, VIDH #### [address] [address] Hgb 15.9 G/dL Normal 14.0-18.0 [facility] ([place]) Comment on above: Performed By: #### C BC, ADIFF, ANEU, CMP, LIPID, GFR, TSH, PSA, VIDH #### [address] [address] MCH (RBC) [Entitic mass] 31.9 pg High 27.0-31.2 [facility] ([place] Comment on above: Performed By: #### C BC, ADIFF, ANEU, CMP, LIPID, GFR, TSH, PSA, VIDH #### [address] [address] MCHC 33.6 G/dL Normal 31.8-35.4 [facility] ([place]) Comment on above: Performed By: #### C BC, ADIFF, ANEU, CMP, LIPID, GFR, TSH, PSA, VIDH #### [address] [address] MCV (RBC) [Entitic vol] 94.8 fL High 80.0-94.0 [facility] ([place] Comment on above: Performed By: #### C BC, ADIFF, ANEU, CMP, LIPID, GFR, TSH, PSA, VIDH #### [address] [address] Platelet 314 10 3/mcL Normal 130-400 [facility] ([place]) Comment on above: Performed By: #### C BC, ADIFF, ANEU, CMP, LIPID, GFR, TSH, PSA, VIDH #### [address] [address] Platelet mean volume (Bld) [Entitic vol] 9.5 fL Normal 7.4-10.4 [facility] ([place] Comment on above: Performed By: #### C BC, ADIFF, ANEU, CMP, LIPID, GFR, TSH, PSA, VIDH #### [address] [address] RBC 4.99 10 6/mcL Normal 4.04-6.13 [facility] ([place] Comment on above: Performed By: #### C BC, ADIFF, ANEU, CMP, LIPID, GFR, TSH, PSA, VIDH #### [address] [address] WBC 8.30 10 3/mcL Normal 4.60-10.80 [facility] ([place]) Comment on above: Performed By: #### C BC, ADIFF, ANEU, CMP, LIPID, GFR, TSH, PSA, VIDH #### [address] [address] CMPon 06-11-2021 Albumin Level 3.6 G/dL Normal 3.4-4.8 [facility] ([place]) Comment on above: Performed By: #### C BC, ADIFF, ANEU, CMP, LIPID, GFR, TSH, PSA, VIDH #### [address] [address] Albumin/Globulin [Mass ratio] 1.0 {ratio} Low 1.1-2.5 [facility] ([place] Comment on above: Performed By: #### C BC, ADIFF, ANEU, CMP, LIPID, GFR, TSH, PSA, VIDH #### [address] [address] ALP [Catalytic activity/Vol] 88 U/L Normal 40-135 [facility] ([place]) Comment on above: Performed By: #### C BC, ADIFF, ANEU, CMP, LIPID, GFR, TSH, PSA, VIDH #### [address] [address] ALT [Catalytic activity/Vol] 23 U/L Normal 16-63 [facility] ([place] Comment on above: Performed By: #### C BC, ADIFF, ANEU, CMP, LIPID, GFR, TSH, PSA, VIDH #### [address] [address] AST [Catalytic activity/Vol] 15 U/L Normal 10-40 [facility] ([place] Comment on above: Performed By: #### C BC, ADIFF, ANEU, CMP, LIPID, GFR, TSH, PSA, VIDH #### [address] [address] Bili Total 0.4 mg/dL Normal 0.2-1.0 [facility] ([place]) Comment on above: Result Comment: Use of this assay is not recommended for patients undergoing treatment with eltrombopag due to the potential for falsely elevated results. Performed By: #### C BC, ADIFF, ANEU, CMP, LIPID, GFR, TSH, PSA, VIDH #### [address] [address] BUN/Creatinine Ratio 12 ratio Normal 7-27 [facility] ([place]) Comment on above: Performed By: #### C BC, ADIFF, ANEU, CMP, LIPID, GFR, TSH, PSA, VIDH #### [address] [address] Calcium [Mass/Vol] 9.5 mg/dL Normal 8.4-10.2 [facility] ([place] Comment on above: Performed By: #### C BC, ADIFF, ANEU, CMP, LIPID, GFR, TSH, PSA, VIDH #### [address] [address] Chloride [Moles/Vol] 103 mmol/L Normal 98-107 [facility] ([place] Comment on above: Performed By: #### C BC, ADIFF, ANEU, CMP, LIPID, GFR, TSH, PSA, VIDH #### [address] [address] CO2 [Moles/Vol] 27 mmol/L Normal 23-31 [facility] ([place] Comment on above: Performed By: #### C BC, ADIFF, ANEU, CMP, LIPID, GFR, TSH, PSA, VIDH #### [address] [address] Creatinine [Mass/Vol] 0.74 mg/dL Normal 0.70-1.30 [facility] ([place]) Comment on above: Performed By: #### C BC, ADIFF, ANEU, CMP, LIPID, GFR, TSH, PSA, VIDH #### [address] [address] Electrolyte Balance 10.0 mEq/L Normal [facility] ([place]) Comment on above: Performed By: #### C BC, ADIFF, ANEU, CMP, LIPID, GFR, TSH, PSA, VIDH #### [address] [address] Globulin 3.7 G/dL Normal [facility] ([place]) Comment on above: Performed By: #### C BC, ADIFF, ANEU, CMP, LIPID, GFR, TSH, PSA, VIDH #### [address] [address] Glucose [Mass/Vol] 98 mg/dL Normal 80-115 [facility] ([place]) Comment on above: Performed By: #### C BC, ADIFF, ANEU, CMP, LIPID, GFR, TSH, PSA, VIDH #### [address] [address] Potassium [Moles/Vol] 5.2 mmol/L High 3.5-5.1 [facility] ([place]) Comment on above: Performed By: #### C BC, ADIFF, ANEU, CMP, LIPID, GFR, TSH, PSA, VIDH #### [address] [address] Sodium [Moles/Vol] 140 mmol/L Normal 136-145 [facility] ([place] Comment on above: Performed By: #### C BC, ADIFF, ANEU, CMP, LIPID, GFR, TSH, PSA, VIDH #### [address] [address] Total Protein 7.3 G/dL Normal 6.4-8.2 [facility] ([place]) Comment on above: Performed By: #### C BC, ADIFF, ANEU, CMP, LIPID, GFR, TSH, PSA, VIDH #### [address] [address] Urea nitrogen [Mass/Vol] 9 mg/dL Normal 7-18 [facility] ([place]) Comment on above: Performed By: #### C BC, ADIFF, ANEU, CMP, LIPID, GFR, TSH, PSA, VIDH #### [address] [address] LABORATORYOrdered By: Castro Antony on 06-11-2021 Albumin [...] 06-11-2021 Cholesterol [Mass/Vol] 275 mg/dL High 0-200 [facility] ([place]) Comment on above: Result Comment: Chol esterol Reference Interval: Less than 200 Desirable 200-239 Borderline high risk 240 and above High risk Performed By: #### C BC, ADIFF, ANEU, CMP, LIPID, GFR, TSH, PSA, VIDH #### [address] [address] Cholesterol in HDL [Mass/Vol] 48 mg/dL Normal 40-60 [facility] ([place]) Comment on above: Performed By: #### C BC, ADIFF, ANEU, CMP, LIPID, GFR, TSH, PSA, VIDH #### [address] [address] Cholesterol in LDL [Mass/Vol] 202 mg/dL High 0-130 [facility] ([place]) Comment on above: Performed By: #### C BC, ADIFF, ANEU, CMP, LIPID, GFR, TSH, PSA, VIDH #### [address] [address] Triglyceride [Mass/Vol] 123 mg/dL Normal 0-150 [facility] ([place]) Comment on above: Result Comment: Trig lyceride Reference Interval: Less than 150 Normal 150-199 Borderline high risk 200-499 High risk 500 or higher Very high risk Performed By: #### C BC, ADIFF, ANEU, CMP, LIPID, GFR, TSH, PSA, VIDH #### [address] [address] PSAon 06-11-2021 Prostate Specific Antigen 0.72 ng/mL Normal 0.00-4.00 [facility] ([place]) Comment on above: Performed By: #### C BC, ADIFF, ANEU, CMP, LIPID, GFR, TSH, PSA, VIDH #### [address] [address] TSHon 06-11-2021 TSH Qn 3.22 m[IU]/L Normal 0.36-3.74 [facility] ([place]) Comment on above: Performed By: #### C BC, ADIFF, ANEU, CMP, LIPID, GFR, TSH, PSA, VIDH #### [address] [address] VIDHon 06-11-2021 Vit. D 25-Hydroxy 21.5 ng/mL Normal [facility] ([place]) Comment on above: Result Comment: Inte rpretive Values Based on Total 25(OH) Vitamin D: Deficient <20 ng/mL Insufficient 20 - <30 ng/mL Sufficient 30-100 ng/mL Performed By: #### C BC, ADIFF, ANEU, CMP, LIPID, GFR, TSH, PSA, VIDH #### [address] [address] Vital Signs Date Time Vital Sign Value Performing Clinician Emmai loraine 02-03-2025 07:51-0400 Body temperature 98.5 [degF] Dr. Elgin Honeycutt MD Work Phone: [facility] 02-03-2025 07:51-0400 Diastolic blood pressure 65 mm[Hg] Dr. Elgin Honeycutt MD Work Phone: [facility] 02-03-2025 07:51-0400 Heart rate 99 /min Dr. Elgin Honeycutt MD Work Phone: [facility] 02-03-2025 07:51-0400 Respiratory rate 16 /min Dr. Elgin Honeycutt MD Work Phone: [facility] 02-03-2025 07:51-0400 SaO2% (BldA) [Mass fraction] 96 % Dr. Elgin Honeycutt MD Work Phone: 5(988)[phone] [place] [address] 02-03-2025 07:51-0400 Systolic blood pressure 108 mm[Hg] Dr. Elgin Honeycutt MD Work Phone: 2(576)927-780869 [place] [address] 02-03-2025 02:54-0400 Body height 190.[address] Elgin Honeycutt MD Work Phone: 8(353)[phone] [place] [address] 02-03-2025 02:54-0400 Body mass index (BMI) [Ratio] 25.6 kg/m2 Dr. Elgin Honeycutt MD Work Phone: 5(353)[phone] [place] [address] 02-03-2025 02:54-0400 Body weight 93.[address] Elgin Honeycutt MD Work Phone: 9(275)222-595569 [place] [address] 11-27-2024 17:15-0400 Body temperature 98 [degF] Dr. Elgin Honeycutt MD Work Phone: 5(314)[phone] [place] [address] 11-27-2024 17:15-0400 Diastolic blood pressure 76 mm[Hg] Dr. Elgin Honeycutt MD Work Phone: 8(890)[phone] [place] [address] 11-27-2024 17:15-0400 Heart rate 96 /min Dr. Elgin Honeycutt MD Work Phone: 7(403)661-303769 [place] [address] 11-27-2024 17:15-0400 Respiratory rate 16 /min Dr. Elgin Honeycutt MD Work Phone: 0(246)448-282469 [place] [address] 11-27-2024 17:15-0400 SaO2% (BldA) [Mass fraction] 96 % Dr. Elgin Honeycutt MD Work Phone: 6(976)[phone] [place] [address] 11-27-2024 17:15-0400 Systolic blood pressure 128 mm[Hg] Dr. Elgin Honeycutt MD Work Phone: 4(804)[phone] [place] [address] 11-27-2024 14:35-0400 Body height 190.[address] Elgin Honeycutt MD Work Phone: 5(447)743-591469 [place] [address] 11-27-2024 14:35-0400 Body mass index (BMI) [Ratio] 24.5 kg/m2 Dr. Elgin Honeycutt MD Work Phone: [facility] 11-27-2024 14:35-0400 Body weight 89.[address] Elgin Honeycutt MD Work Phone: [facility] 07-02-2024 11:18-0500 Body temperature 98.1 [degF] Dr. Elgin Honeycutt MD Work Phone: [facility] 07-02-2024 11:18-0500 Diastolic blood pressure 87 mm[Hg] Dr. Elgin Honeycutt MD Work Phone: [facility] 07-02-2024 11:18-0500 Heart rate 97 /min Dr. Elgin Honeycutt MD Work Phone: [facility] 07-02-2024 11:18-0500 Respiratory rate 20 /min Dr. Elgin Honeycutt MD Work Phone: [facility] 07-02-2024 11:18-0500 SaO2% (BldA) [Mass fraction] 94 % Dr. Elgin Honeycutt MD Work Phone: [facility] 07-02-2024 11:18-0500 Systolic blood pressure 134 mm[Hg] Dr. Elgin Honeycutt MD Work Phone: [facility] 07-02-2024 09:28-0500 Body mass index (BMI) [Ratio] 23.8 kg/m2 Dr. Elgin Honeycutt MD Work Phone: [facility] 07-02-2024 09:28-0500 Body weight 86.[address] Elgin Honeycutt MD Work Phone: [facility] 07-02-2024 09:18-0500 Body height 190.[address] Elgin Honeycutt MD Work Phone: [facility] 09-15-2023 07:54-0400 Body temperature 97.6 [degF] Dr. Ida Blanca Work Phone: [facility] 09-15-2023 07:54-0400 Diastolic blood pressure 75 mm[Hg] Dr. Ida Blanca Work Phone: [facility] 09-15-2023 07:54-0400 Heart rate 74 /min Dr. Ida Blanca Work Phone: [facility] 09-15-2023 07:54-0400 Respiratory rate 16 /min Dr. Ida Blanca Work Phone: [facility] 09-15-2023 07:54-0400 SaO2% (BldA) [Mass fraction] 98 % Dr. Ida Blanca Work Phone: 0(483)[phone] [place] [address] 09-15-2023 07:54-0400 Systolic blood pressure 115 mm[Hg] Dr. Ida Blanca Work Phone: 3(071)[phone] [place] [address] 09-14-2023 12:51-0400 Body height 190.[address] Ida Blanca Work Phone: 1(433)[phone] [address] 09-14-2023 12:51-0400 Body weight 73.[address] Ida Blanca Work Phone: 8(929)[phone] [place] [address] 09-13-2023 06:03-0400 Body mass index (BMI) [Ratio] 20.2 kg/m2 Dr. Ida Blanca Work Phone: [facility] 09-05-2023 16:03-0500 Body temperature 98.5 [degF] Dr. Ida Blanca Work Phone: [facility] 09-05-2023 16:03-0500 Diastolic blood pressure 95 mm[Hg] Dr. Ida Blanca Work Phone: [phone] [place] [address] 09-05-2023 16:03-0500 Heart rate 82 /min Dr. Ida Blanca Work Phone: [facility] 09-05-2023 16:03-0500 Respiratory rate 16 /min Dr. Ida Blanca Work Phone: [facility] 09-05-2023 16:03-0500 SaO2% (BldA) [Mass fraction] 95 % Dr. Ida Blanca Work Phone: [facility] 09-05-2023 16:03-0500 Systolic blood pressure 155 mm[Hg] Dr. Ida Blanca Work Phone: [facility] 08-30-2023 11:40-0500 Body height 190.[address] Ida Blanca Work Phone: [facility] 08-30-2023 11:40-0500 Body weight 66.[address] Ida Blanca Work Phone: [facility] 08-29-2023 17:13-0500 Body mass index (BMI) [Ratio] 18.3 kg/m2 Dr. Ida Blanca Work Phone: [facility] Encounters Encounter Date Encounter Type Care Provider Facility Start: 05-10-2025 ambulatory No Primary Car e Physician Facility:[facility] Start: 04-03-2025 End: 04-03-2025 ambulatory No Primary Care Physician -Radiology [facility] Start: 04-03-2025 End: 04-03-[address] Quirino Perry MD -Radiology [facility] Work Phone: Start: 04-03-2025 End: 04-03-2025 ambulatory No Primary Care Physician Facility:[facility] Start: 03-06-2025 End: 03-06-[address] Elgin Honeycutt MD Work Phone: -Laboratory Start: 03-06-2025 End: 03-06-[address] Quirino Perry MD -Laboratory Work Phone: Start: 03-06-2025 End: 03-06-2025 ambulatory No Primary Care Physician Facility:[facility] Start: 02-06-2025 End: 02-06-[address] Elgin Honeycutt MD Work Phone: -MRI - [facility] [facility] Start: 02-06-2025 End: 02-06-[address] Quirino Perry MD -MRI - [facility] Work Phone: Start: 02-06-2025 End: 02-06-2025 ambulatory No Primary Care Physician Facility:[facility] Start: 02-03-2025 End: 02-03-2025 Emergency department patient visit Dr. Elgin Honeycutt MD Work Phone: -Emergency Department Work Phone: Start: 01-22-2025 End: 01-22-[address] Elgin Honeycutt MD Work Phone: -Radiology [facility] Start: 01-22-2025 End: 01-22-[address] Quirino Perry MD -Radiology [facility] Work Phone: Start: 01-22-2025 End: 01-22-2025 ambulatory No Primary Care Physician Facility:[facility] Start: 11-27-2024 ambulatory Kiko Almanzar Facility :[facility] Start: 11-27-2024 Non-patient / Non-visit Kiko Almanzar DO -[facility] Start: 11-27-2024 End: 11-27-2024 Admission to same day surgery center Kikokori Almanzar DO -Endoscopy Work Phone: Start: 11-27-2024 End: 11-27-[address] Elgin Honeycutt MD Work Phone: [facility] Work Phone: Start: 11-27-2024 End: 11-27-2024 ambulatory Elgin Honeycutt Facility:[facility] Start: 11-06-2024 End: 11-06-[address] Elgin Honeycutt MD Work Phone: [facility] Work Phone: Start: 11-06-2024 End: 11-06-[address] Elgin Honeycutt MD -Radiology, [facility] Work Phone: Start: 11-06-2024 End: 11-06-2024 ambulatory Elgin Honeycutt Facility:[facility] Start: 10-15-2024 End: 10-15-[address] Elgin Honeycutt MD Work Phone: [facility] Work Phone: Start: 10-15-2024 End: 10-15-[address] Elgin Honeycutt MD -Cardiovascular Services Work Phone: Start: 10-15-2024 End: 10-15-2024 ambulatory Elgin Ermias Pinonok Facility:[facility] Start: 09-30-2024 ambulatory Elgin Honecyutt Facility:[facility] Start: 09-26-2024 End: 09-26-[address] Elgin Honeycutt MD Work Phone: [facility] Work Phone: Start: 09-26-2024 End: 09-26-[address] Quirino Perry MD -Radiology, [facility] Work Phone: Start: 09-26-2024 End: 09-26-2024 ambulatory Quirino Perry Facility:[facility] Start: 09-21-2024 End: 09-21-[address] Quirino Perry MD -MRI - [facility] Work Phone: Start: 09-21-2024 End: 09-21-[address] Elgin Honeycutt MD Work Phone: [facility] Work Phone: Start: 09-20-2024 End: 09-21-[address] Elgin Honeycutt MD Work Phone: [facility] Work Phone: Start: 09-20-2024 End: 09-20-[address] Elgin Honeycutt MD -Laboratory Work Phone: Start: 09-20-2024 End: 09-20-2024 ambulatory Elgin Honeycutt Facility:[facility] Start: 08-27-2024 End: 08-27-[address] Elgin Honeycutt MD -Cat Scan, [facility] Work Phone: Start: 08-27-2024 End: 08-27-2024 ambulatory Elgin Honeycutt Facility:[facility] Start: 08-22-2024 ambulatory Elgin Honeycutt Facility:[facility] Start: 08-22-2024 Non-patient / Non-visit Dr. Donna Salazar MD -[facility] Start: 08-22-2024 End: 08-22-[address] Elgin Honeycutt MD -Pulmonary Services/Neurology Work Phone: Start: 08-22-2024 End: 08-22-2024 ambulatory Elgin Honeycutt Facility:[facility] Start: 07-30-2024 End: 07-30-[address] Elgin Honeycutt MD -[facility] Work Phone: Start: 07-30-2024 End: 07-30-2024 ambulatory Elgin Honeycutt Facility:[facility] Start: 07-03-2024 End: 07-03-[address] Elgin Honeycutt MD -Laboratory, Phy Office 3rd Flr Start: 07-03-2024 End: 07-03-2024 ambulatory Elgin Honeycutt Facility:[facility] Start: 07-02-2024 End: 07-02-2024 Emergency department patient visit Dr. Jesse Mak DO -Emergency Department Work Phone: Start: 11-01-2023 End: 11-01-[address] Ida Blanca Work Phone: [facility] Work Phone: Start: 11-01-2023 End: 11-01-[address] Ida Blanca Work Phone: [facility]-Laboratory, Phy Office 3rd Flr Start: 10-24-2023 End: 10-24-[address] Ida Blanca Work Phone: [facility] Work Phone: Start: 10-24-2023 End: 10-24-[address] Ida Blanca Work Phone: [facility]-Laboratory Work Phone: Start: 10-11-2023 End: 10-11-[address] Ida Blanca Work Phone: [facility] Work Phone: Start: 10-11-2023 End: 10-11-[address] Ida Blanca Work Phone: [facility]-Outpatient Bone Densitometry Work Phone: Start: 10-08-2023 End: 10-08-[address] Ida Blanca Work Phone: [facility] Work Phone: Start: 10-08-2023 End: 10-08-[address] Ida Blanca Work Phone: [facility]-Cat Scan, [facility] Work Phone: Start: 09-23-2023 End: 09-23-[address] Ida Blanca Work Phone: [facility] Work Phone: Start: 09-23-2023 End: 09-23-[address] Ida Blanca Work Phone: [facility]-Laboratory, Phy Office 3rd Flr Start: 09-20-2023 End: 09-20-[address] Ida Blanca Work Phone: [facility] Work Phone: Start: 09-20-2023 End: 09-20-[address] [facility] Start: 09-05-2023 End: 09-15-2023 Evaluation and management of inpatient Dr. Ida Blanca Work Phone: [facility]-Transitional Care Unit Start: 09-05-2023 Non-patient / Non-visit Dr. Ida Blanca Work Phone: [facility] Work Phone: Start: 09-04-2023 Non-patient / Non-visit Dr. Ida Blanca Work Phone: [facility] Work Phone: Start: 09-03-2023 Non-patient / Non-visit Dr. Ida Blanca Work Phone: [facility] Work Phone: Start: 09-02-2023 Non-patient / Non-visit Dr. Ida Blanca Work Phone: [facility] Work Phone: Start: 09-01-2023 Non-patient / Non-visit Dr. Ida Blanca Work Phone: [facility] Work Phone: Start: 08-31-2023 Non-patient / Non-visit Dr. Ida Blanca Work Phone: [facility] Work Phone: Start: 08-30-2023 Non-patient / Non-visit Dr. Ida Blnaca Work Phone: [facility] Work Phone: Start: 08-29-2023 Non-patient / Non-visit Dr. Ida Blanca Work Phone: [facility] Work Phone: Start: 08-29-2023 End: 09-05-2023 Evaluation and management of inpatient Dr. [facility] Blanca [facility] Start: 10-13-2021 End: 10-17-2021 Outreach Lab VEL KOCH APRN - COLOR DEVELOPER [facility] Start: 09-10-2021 End: 09-14-2021 Outreach Lab VEL KOCH OPERATOR SPECIALIST COMMUNICATIONS - COLOR DEVELOPER [facility] Start: 07-01-2021 End: 07-01-2021 Patient encounter procedure JUAN DELATORRE OPERATOR SPECIALIST COMMUNICATIONS-PLAYGROUND WORKER [facility] Start: 06-11-2021 End: 06-11-2021 Patient encounter procedure VEL KOCH OPERATOR SPECIALIST COMMUNICATIONS - COLOR DEVELOPER [facility] Procedures Date Procedure Procedure Detail Performing Clinician Start: 04-03-2025 Radex spine thoracic 3 views No Primary Care Physician Start: 02-06-2025 MRI of lumbar spine Dr. Elgin Honeycutt MD Work Phone: Start: 02-03-2025 CT cervical spine wi thout contrast Dr. Elgin Honeycutt MD Work Phone: Start: 02-03-[address] Elgin rosales MD Work Phone: Start: 02-03-2025 CT of head without contrast Dr. Elgin Honeycutt MD Work Phone: Start: 01-22-2025 X-ray of lumbar spin e, [...] Phone: Breast structure (jake dy structure) JUAN QUIGLEYMONTSERRAT OPERATOR SPECIALIST COMMUNICATIONS-PLAYGROUND WORKER Comment on above: breast surgery in [facility] in Aug 2020. pat has disk but forgot to bring it in today Plan of Treatment Date Care Activity Detail Author Start: 03-06-2025 Thiamine measurement [facility] Start: 02-03-2025 Simple repair f/e/e/ n/l/m 2.5cm/< RPR F/E/E/N/L/M 2.5 CM/< [facility] Start: 02-03-2025 [facility] Start: 11-27-2024 Egd transoral biopsy single/multiple EGD BIOPSY SINGLE/MULTIPLE [facility] Start: 07-02-2024 [facility] Start: 09-15-2023 Patient discharge [facility] Start: 09-14-2023 Development of care plan [facility] Start: 09-12-2023 [facility] Start: 09-08-2023 [facility] Start: 09-06-2023 Development of care plan [facility] Start: 09-06-2023 Speech therapy management [facility] Start: 09-06-2023 Developing a treatment plan [facility] Start: 09-06-2023 Following clinical p athway protocol [facility] Start: 09-06-2023 [facility] Start: 09-06-2023 Speech therapy assessment [facility] Start: 09-05-2023 [facility] Start: 09-05-2023 Admission procedure [facility] Start: 09-05-2023 Measuring intake and output [facility] Start: 09-05-2023 End: 09-06-2023 Patient referral to dietitian [facility] Start: 09-05-2023 Referral to occupati onal therapist [facility] Start: 09-05-2023 Referral to service [facility] Start: 09-05-2023 Vital signs measurements [facility] Start: 09-05-2023 [facility] Start: 09-05-2023 Patient discharge [facility] Start: 08-31-2023 [facility] Start: 08-31-2023 Referral to occupati onal therapist [facility] Start: 08-30-2023 Referral to service [facility] Start: 08-29-2023 End: 08-30-2023 [facility] Start: 08-29-2023 Application of inter mittent pneumatic compression device [facility] Start: 08-29-2023 Following clinical p athway protocol [facility] Start: 08-29-2023 Assessment of risk o f venous thromboembolism [facility] Start: 08-29-2023 Documentation procedure [facility] Start: 08-29-2023 Notification of physician [facility] Start: 08-29-2023 Provision of activit y privileges [facility] Start: 08-29-2023 Vital signs measurements [facility] Start: 08-29-2023 Admission procedure [facility] Start: 08-29-2023 Patient referral to dietitian [facility] Elastase.pancreatic [Presence] in Stool [facility] Patient Education [facility] Work Phone: Patient referral [facility] Work Phone: Immunizations Immunization Date Immunization Notes Care Provider Jovan che 09-06-2023 Influenza High-Dose Quadrivalent Dr. Ida Blanca Work Phone: [facility] 09-06-2023 Pneumococcal Vaccine PCV20 (Prevnar 20) Dr. Ida Blanca Work Phone: [facility] 05-26-2021 influenza, injectabl e, quadrivalent, contains preservative; Translations: [Fluarix PF Quadrivalent ] VEL KOCH OPERATOR SPECIALIST COMMUNICATIONS - COLOR DEVELOPER [facility] Payers Date Payer Category Payer Medicare [id number] [id number] Self-pay [id number] Medicare MEDICARE PART A B [id number] Unknown [id number] Unknown [facility] *DO NOT USE* [id number] Unknown [id number] 2.16.8 [id number] Unknown [id number] 2.16.8 40.1.292805.3.579.2.462 Unknown [id number] 2.16.8 40.1.681530.3.579.2.462 Unknown [id number] 2.16.8 40.1.024124.3.579.2.462 Unknown [id number] 2.16.8 40.1.821862.3.579.2.462 Unknown [id number] 2.16.8 40.1.105769.3.579.2.462 Unknown [id number] 2.16.8 40.1.651342.3.579.2.462 Unknown [id number] 2.16.8 40.1.862608.3.579.2.462 Unknown [id number] 2.16.8 40.1.190192.3.579.2.462 Unknown [id number] 2.16.8 40.1.193421.3.579.2.462 Unknown [id number] 2.16.8 40.1.073173.3.579.2.462 Unknown [id number] 2.16.8 40.1.682011.3.579.2.462 Unknown [id number] 2.16.8 40.1.793225.3.579.2.462 Unknown [id number] 2.16.8 40.1.026842.3.579.2.462 Unknown [id number] 2.16.8 40.1.396753.3.579.2.462 Unknown [id number] 2.16.8 40.1.191254.3.579.2.462 Unknown [id number] 2.16.8 40.1.044931.3.579.2.462 Unknown [id number] 2.16.8 40.1.543714.3.579.2.462 Unknown [id number] 2.16.8 40.1.772879.3.579.2.462 Unknown [id number] 2.16.8 40.1.903031.3.579.2.462 Unknown [id number] 2.16.8 40.1.741870.3.579.2.462 Unknown [id number] 2.16.8 40.1.786712.3.579.2.462 Social History Date Type Detail Facility Start: 05-26-2021 Heavy tobacco smoker (finding) [facility]igned At [facility] Start: 08-29-2023 End: 09-15-2023 Tobacco smoking status VTIS Unknown if ever smoked [facility] Start: 1960 Sex Assigned At Male [facility] Start: 09-21-2024 End: 02-03-2025 Tobacco smoking status NHIS Smokes tobacco daily (finding) [facility] Start: 09-27-2024 End: 10-18-2024 Sex Male (finding) [facility] Sex Male [facility] Goals Date Patient Goal Desired Activity /State Functional Status Date Assessment Result Facility 09-15-2023 Functional status Up ad murtaza;Chair [facility] Work Phone: 09-05-2023 Functional status Ambulates [facility] Work Phone: Mental Status Date Assessment Result Facility 11-27-2024 Cognitive function Voice/Name [facility] Work Phone: 11-27-2024 Cognitive function Patient Marie sarmiento Person;Place;Time [facility] Work Phone: 09-15-2023 Cognitive function Voice/Name [facility] Work Phone: 09-14-2023 Cognitive function Level Of Cons ciousness Awake;Alert;Appropriate;Follow s Commands [facility] Work Phone: 09-05-2023 Cognitive function Voice/Name [facility] Work Phone: Clinical Notes 08-29-2023 to 04-05-2025 Note Date & Type Note Facility 04-05-2025 Radiology Diagnostic study note [facility] Imaging Services [address] [place], [place] [id number] Thoracic Spine 3 Views MR#: [id number] Acct: [id number] Name: JULI DAVIDSON Rep #: [id number] : 1960 M 64 From: Keo Davidson MD PCP: Care Physician,No Primary Status: REG CLI Study:Thoracic Spine 3 Views Date of Exam: 04/03/25 Exam# [id number] Ordering Dr: Quirino Perry MD PROCEDURE: THORACIC SPINE 3 VIEWS 04/03/2025 REASON FOR EXAM: THORACIC SPONDYLOSIS TECHNIQUE: Procedure Code: RADSPT Modality: DX Procedure: THORACIC SPINE 3 VIEWS COMPARISON: September 2024. FINDINGS: Kyphoplasty T12. Vertebral body heights and alignment otherwise intact. Mild degenerate disc disease. No new fracture. Facet joints negative. No fractures and no dislocations. Cervicothoracic and thoracolumbar junctions negative. RAD/Thoracic Spine 3 Views IMPRESSION: Compression fracture with old kyphoplasty T12. Stable. Negative for acute abnormality of the thoracic spine. Reading Location: [facility] CC: Dr. Quirino Perry MD; No Primary Care Physician ~ Color Separation Photographer: Signed [facility] 02-03-2025 Discharge summary [facility] 02-03-2025 Radiology Diagnostic study note [facility] Imaging Services [address] [place], [place] [address] Sinus/Facial Bone MR#: [id number] Acct: [id number] Name: JULI DAVIDSON Rep #: [id number] : 1960 M 64 From: Brooklynn Cisneros MD PCP: Care Physician,No Primary Status: PRE ER Study:Sinus/Facial Bone Date of Exam: Exam# [id number] Ordering Dr: Rex Mazariegos DO PROCEDURE: SINUS/FACIAL BONE 02/03/2025 REASON FOR EXAM: INJURY TECHNIQUE: SINUS/FACIAL BONE Coronal and Sagittal reconstruction series were provided. One or more dose reduction techniques were used (e.g., Automated exposure control, adjustment of the mA and/or kV according to patient size, use of iterative reconstruction technique). COMPARISON: No FINDINGS: No facial fracture or dislocation. Right anterior scalp laceration and small hematoma. Status post bilateral lens extraction. No orbital soft tissue injury. CT/Sinus/Facial Bone IMPRESSION: Anterior scalp laceration. Reading Location: [place] [address] CC: Dr. Rex Mazariegos DO; No Primary Care Physician ~ Color Separation Photographer: Signed [facility] 02-03-2025 Radiology Diagnostic study note [facility] Imaging Services [address] [place], [place] [address] Spine Cervical without Contras MR#: [id number] Acct: [id number] Name: JULI DAVIDSON Rep #: [id number] : 1960 M 64 From: Brooklynn Cisneros MD PCP: Care Physician,No Primary Status: PRE ER Study:Spine Cervical without Contras Date of Exam: 02/03/25 Exam# [id number] Ordering Dr: Rex Mazariegos DO PROCEDURE: SPINE CERVICAL WITHOUT CONTRAS 02/03/2025 REASON FOR EXAM: INJURY TECHNIQUE: SPINE CERVICAL WITHOUT CONTRAS Coronal and Sagittal reconstruction series were provided. One or more dose reduction techniques were used (e.g., Automated exposure control, adjustment of the mA and/or kV according to patient size, use of iterative reconstruction technique. COMPARISON: No FINDINGS: Cervical spine scoliosis and degeneration. No acute fracture or dislocation. No soft tissue injury. No apical pneumothorax. Apical emphysema. Ossified stylohyoid ligaments. CT/Spine Cervical without Contras IMPRESSION: No acute injury Reading Location: [facility] CC: Dr. Rex Mazariegos DO; No Primary Care Physician ~ Color Separation Photographer: Signed [facility] 02-03-2025 Radiology Diagnostic study note [facility] Imaging Services [address] [place] [address] Brain/Head without Contrast MR#: [id number] Acct: [id number] Name: JULI DAVIDSON Rep #: [id number] : 1960 M 64 From: Brooklynn Cisneros MD PCP: Care Physician,No Primary Status: PRE ER Study:Brain/Head without Contrast Date of Exa m: 02/03/25 Exam# [id number] Ordering Dr: Rex Mazariegos DO PROCEDURE: BRAIN/HEAD WITHOUT CONTRAST 02/03/2025 REASON FOR EXAM: INJURY TECHNIQUE: BRAIN/HEAD WITHOUT CONTRAST Coronal and Sagittal reconstruction series were provided. One or more dose reduction techniques were used (e.g., Automated exposure control, adjustment of the mA and/or kV according to patient size, use of iterative reconstruction technique. RADIATION DOSE SUMMARY: CTDlvol: 45 mGy DLP: 864 mGycm COMPARISON: 07/30/2024 FINDINGS: Diffuse atrophy. No acute abnormal brain densities. No intracranial hemorrhage. No hydrocephalus or midline shift. No acute skull pathology. Bilateral lens extraction. Right anterior scalp laceration and small hematoma. CT/Brain/Head without Contrast IMPRESSION: No acute intracranial findings Reading Location: [facility] CC: Dr. Rex Mazariegos DO; No Primary Care Physician ~ Color Separation Photographer: Signed [facility] 01-23-2025 Radiology Diagnostic study note [facility] Imaging Services [address] [place] [address] Lumbar Spine 2 or 3 Views MR#: [id number] Acct: [id number] Name: JULI DAVIDSON Rep #: [id number] : 1960 M 64 From: Humera Mazariegos MD PCP: Care Physician,No Primary Status: REG CLI Study:Lumbar Spine 2 or 3 Views Date of Exam: 01/22/25 Exam# [id number] Ordering Dr: Quirino Perry MD EXAM: XR [...] 2. Degenerative changes as above. Reading Location: [facility] CC: Dr. Quirino Perry MD; No Primary Care Physician ~ Color Separation Photographer: Signed [facility] 11-27-2024 Consult note Note Date/Time November 27, 2024 8:25p m [facility] Medical Records Department [address] [place] [address] Anesthesia Postop Eval II 11/27/242022 MR#: [id number] Acct: [id number] Name: JULI DAVIDSON Rep #:[id number] : 1960 64 From: Andrez Faith MD PCP: Dr. Elgin Honeycutt MD Status:REG S DC Y Race: C Location: EN Anesthesia Postop Eval I Sum Postop Eval Completion status Anesthesia document: Postop Eval 1 completed: Yes Anesthesia Postop Eval I Summary Anesthesia Postop Eval I Summary: Anesthesia Postop Eval I: Assessment Summary Airway patent Yes 11/27/24 17:09 DEPALLETIZER [email or web address].[email or web address] Spontaneous unlabored Yes 11/27/24 17:09 DEPALLETIZER OPERATOR.TNES respirations Mental status nausea No 11/27/24 17:09 DEPALLETIZER OPERATOR.TNES Vomiting No 11/27/24 17:09 DEPALLETIZER OPERATOR.TNES Anesthesia Postop Eval I: Fluid Summary Crystalloid volume administer 700 11/27/24 17:09 DEPALLETIZER OPERATOR.TNES (ml) Colloids volume administered ( ml) Blood Product volume administered (ml) Total IV fluid infused 700 11/27/24 17:09 DEPALLETIZER OPERATOR.TNES Anesthesia Postop Eval I: Summary Notes Anesthesia Complication No 11/27/24 17:09 DEPALLETIZER OPERATOR.TNES Anesthesia Complication Comment: Post-operative progress note Anesthesia: Postop Eval II Evaluation Mental status: Awake and Calm Pain Level: 0 nausea: No Vomiting: No Complications Anesthesia Complication: No 11/27/242024 <Electronically signed by Andrez michaud MD> Date _ Andrez Faith MD Cosigner Signature: Date CC: ~ Signed [facility] Work Phone: 1(486) 583-100105-27-2025 Consult note [facility] Medical Records Department [address] [place] [address] Anesthesia Postop Eval II 11/27/242022 MR#: [id number] Acct: [id number] Name: JULI DAVIDSON Rep #:[id number] : 1960 64 From: Andrez Faith MD PCP: Dr. Elgin Honeycutt MD Status:REG S DC Y Race: C Location: EN Anesthesia Postop Eval I Sum Postop Eval Completion status Anesthesia document: Postop Eval 1 completed: Yes Anesthesia Postop Eval I Summary Anesthesia Postop Eval I Summary: Anesthesia Postop Eval I: Assessment Summary Airway patent Yes 11/27/24 17:09 DEPALLETIZER OPERATOR.[email or web address] Spontaneous unlabored Yes 11/27/24 17:09 DEPALLETIZER OPERATOR.TNES respirations Mental status nausea No 11/27/24 17:09 DEPALLETIZER OPERATOR.TNES Vomiting No 11/27/24 17:09 DEPALLETIZER OPERATOR.TNES Anesthesia Postop Eval I: Fluid Summary Crystalloid volume administer 700 11/27/24 17:09 DEPALLETIZER OPERATOR.TNES (ml) Colloids volume administered ( ml) Blood Product volume administered (ml) Total IV fluid infused 700 11/27/24 17:09 DEPALLETIZER OPERATOR.TNES Anesthesia Postop Eval I: Summary Notes Anesthesia Complication No 11/27/24 17:09 DEPALLETIZER OPERATOR.TNES Anesthesia Complication Comment: Post-operative progress note Anesthesia: Postop Eval II Evaluation Mental status: Awake and Calm Pain Level: 0 nausea: No Vomiting: No Complications Anesthesia Complication: No 11/27/242024 keily ADHIKARI> Date _ Andrez Faith MD Cosigner Signature: Date CC: ~ Signed [facility]05-27-2025 Consult note Author Zia Martin [facility] Note Date/Time November 27, 2024 5:09p [facility] Medical Records Department [address] [place] [address] Anesthesia Postop Eval I 11/27/24 1709 MR#: [id number] Acct: [id number] Name: JULI DAVIDSON Rep #:[id number] : 1960 64 From: Zia CRAWLEY [...] document: Postop Eval 1 completed: Yes 11/27/24 [id number] <Electronically signed by Zia Martin CRNA> Date _ Zia Martin CRNA Cosigner Signature: Date CC: ~ Signed [facility] Work Phone: 1(563) 457-923805-27-2025 History and physical note Author Kiko Almanzar [facility] Note Date/Time November 27, 2024 4:44p m [facility] Medical Records Department [address] [place] [address] History & Physical Exam 11/27/24 1643 MR#: [id number] Acct: [id number] Name: JULI DAVIDSON Rep #:[id number] : 1960 64 From: Kiko Almanzar DO PCP: Dr. Elgin Honeycutt MD Status:REG S NE Location: HPI - General General Date of Admission: [...] ago. He continues to smoke and states " I will stop when I ". He denies any alcohol use. [facility] Medical History Wears glasses Wears dentures Alcohol [...] applicable): CC: Dr. Elgin Honeycutt MD; Kiko Almanzar DO~ Signed [facility] Work Phone: [phone]) [phone] Consult note Author Andrez Faith [facility] Note Date/Time November 27, 2024 3:52p m [facility] Medical Records Department [address] [place] [address] Pre-Anesthesia Evaluation 11/27/24 1527 MR#: [id number] Acct: [id number] Name: JULI DAVIDSON Rep #:[id number] : 1960 64 From: Andrez Faith [...] 09/20/24 TSH 1.970 uIU/mL (0.300-4.200) 09/20/24 09:10 / COAG PT 13.2 SECONDS (11.7-14.9) 10/24/23 09:17 Pre-Assessment Diagnosis/Proposed Procedure Planned Operative Procedure(s): egd Anesthesia History Anesthesia History - supervisor looping: Anesthesia History - supervisor looping Hx Hospitalization No 11/27/24 14:17 Any Problems [...] take am of surgery PONV PONV - supervisor looping: PONV - supervisor looping Female No 11/27/24 14:17 HX of Motion [...] 11/27/24 14:35 Respiratory Assessment Respiratory Assessment - supervisor looping: Respiratory Tract Infection Hx - supervisor looping Hx Respiratory Tract Infection No: chronic cough from COPD 11/27/24 14:17 STOP Sleep Apnea STOP Sleep Apnea - supervisor looping: STOP Sleep Apnea - supervisor looping Hx Hypertension No 11/27/24 14:17 Hx Sleep [...] Tobacco Use History Tobacco Use History - supervisor looping: Tobacco Use History - supervisor looping Tobacco Use Smoking Status Current every day smoker 11/27/24 14:17 Hx Tobacco Use Yes 11/27/24 14:17 Years Smoking 50 11/27/24 14:17 Packs Smoked per Day Smoking Cessation Date was within the last 15 years Hx Smoking Cessation Date Hx Smoking Cessation Counseling Any additional information?: Yes Smoking Status: Current every day smoker (Patient smoked today.) Hematologic Medial History Hematologic Hx - supervisor looping: Hematologic Medical Hx - gum cook Hx of Blood Transfusion No 11/27/24 14:17 [...] confused, unrespo /Reproduction History /Reproductive History - supervisor looping: /Reproductive Hx- supervisor looping Hx Now No 11/27/24 14:17 Gestational Age [...] Cosigner Signature: Date CC: ~ Signed [facility] Work Phone: [phone]) [phone] Procedure note [facility] Medical Records Department [address] [place] [address] EGD Report MR#: [id number] Acct: [id number] Name: JULI DAVIDSON Rep #:[id number] : 1960 64 From: Kiko Almanzar [...] pathology results. Procedure Code(s): --- Professional --- 86365, Small intestinal endoscopy, enteroscopy beyond second portion of duodenum, not including ileum; with biopsy, single or multiple CPT copyright 2021 [employer]. All rights reserved. The codes documented in this report are preliminary and upon hcc coders review may be revised to meet current compliance requirements. Kiko Almanzar DO 11/27/2024 5:26:40 PM This report has been signed electronically. Number of Addenda: 0 Note Initiated On: 11/27/2024 4:43 PM 11/27/241726 Date _ Kiko Almanzar DO Cosigner Signature: Date (if indicated) CC: Dr. Elgin Honeycutt MD; Kiko Almanzar DO ~ Date Dictated: 11/27/241642 Date Transcribed: Color Separation Photographer: RF Signed [facility]05-27-2025 Procedure note [facility] Medical Records Department [address] [place] [place] [address] Operative Report - CC Letter MR#: [id number] Acct: [id number] Name: JULI DAVIDSON Rep #:[id number] : 1960 64 From: Kiko Almanzar DO PCP: Dr. Elgin Honeycutt MD Status:REG S DC 11/27/2024 Elgin Honeycutt MD [address] [place] [address] Re : Upper GI endoscopy procedure for [...] MD; Kiko Almanzar DO ~ Date Dictated: 11/27/241642 Date Transcribed: Color Separation Photographer: RF Signed [facility]05-27-2025 Consult note [facility] Medical Records Department [address] [facility] [address] [place] [address] Anesthesia Postop Eval I 11/27/241708 MR#: [id number] Acct: [id number] Name: JULI DAVIDSON Rep #:[id number] : 1960 64 From: Zia CRAWLEY [...] document: Postop Eval 1 completed: Yes 11/27/241708 DEPALLETIZER OPERATOR> Date _ Zia Martin DEPALLETIZER OPERATOR Cosigner Signature: Date CC: ~ Signed [facility]05-27-2025 History and physical note [facility] Medical Records Department [address] [place] [address] History & Physical Exam 11/27/24 1643 MR#: [id number] Acct: [id number] Name: JULI DAVIDSON Rep #:[id number] : 1960 64 From: [facility] Friend DO PCP: Dr. Elgin Honeycutt MD Status:REG S DC Location: [facility] General Date of Admission: 11/27/24 Date of Service: 11/27/24 Chief Complaint: Abdominal pain , weight loss and chronic pancreatitis HPI Narrative JULI DAVIDSON, is a 64 M who presents for the evaluation of abdominal pain weight loss and chronic pancreatitis. Pt referred to [facility] from his PCP Dr. Honeycutt for chronic pancreatitis. Pt has complaints of daily abd pain that radiates all over. It is not specifically in the epigastric region. He has nausea 2-3x per week but does not vomit. He has alternating bowels with constipation and loose stools. He notes having a colonoscopy many years ago. He continues to smoke and states " I will stop when I ". He denies any alcohol use. [facility] Medical History Wears glasses Wears dentures Alcohol [...] Honeycutt MD; Kiko Almanzar, ~ Signed [facility]05-27-2025 [facility] Medical Records Department [address] [place] [address] History Physical Exam 11/27/24 1643 MR#: [id number] Acct: [id number] Name: JULI DAVIDSON Rep #: [id number] : 1960 64 From: Kiko Almanzar DO PCP: Dr. Elgin Honeycutt MD Status:REG [facility] Location: EN HPI - General General Date of Admission: 11/27/24 Date of Service: 11/27/24 Chief Complaint: Abdominal pain , weight loss and chronic pancreatitis HPI Narrative JULI DAVIDSON, is a 64 M who presents for the evaluation of abdominal pain weight loss and chronic pancreatitis. Pt referred to [facility] from his PCP Dr. Honeycutt for chronic pancreatitis. Pt has complaints of daily abd pain that radiates all over. It is not specifically in the epigastric region. He has nausea 2-3x per week but does not vomit. He has alternating bowels with constipation and loose stools. He notes having a colonoscopy many years ago. He continues to smoke and states " I will stop when I ". He denies any alcohol use. [facility] Medical History Wears glasses Wears dentures Alcohol [...] of creon to (more content not included)...[facility]05-27-2025 Evaluation note* Diagnosis Onset Date Resolution Status Admit Date Severe malnutrition acute November 022024 1:59pm Chronic pancreatitis chronic November 27, 2024 1:59pm [facility] Work Phone: [phone] Consult note [facility] Medical Records Department [address] [place] [address] Pre-Anesthesia Evaluation 11/27/24 1527 MR#: [id number] Acct: [id number] Name: JULI DAVIDSON Rep #:[id number] : 1960 64 From: Andrez Faith [...] Procedure(s): egd Anesthesia History Anesthesia History - supervisor looping: Anesthesia History - supervisor looping Hx Hospitalization No 11/27/24 14:17 Any Problems [...] take am of surgery PONV PONV - supervisor looping: PONV - supervisor looping Female No 11/27/24 14:17 HX of Motion [...] 11/27/24 14:35 Respiratory Assessment Respiratory Assessment - supervisor looping: Respiratory Tract Infection Hx - supervisor looping Hx Respiratory Tract Infection No: chronic cough from COPD 11/27/24 14:17 STOP Sleep Apnea STOP Sleep Apnea - supervisor looping: STOP Sleep Apnea - supervisor looping Hx Hypertension No 11/27/24 14:17 Hx Sleep [...] Tobacco Use History Tobacco Use History - supervisor looping: Tobacco Use History - supervisor looping Tobacco Use Smoking Status Current every day smoker 11/27/24 14:17 Hx Tobacco Use Yes 11/27/24 14:17 Years Smoking 50 11/27/24 14:17 Packs Smoked per Day Smoking Cessation Date was within the last 15 years Hx Smoking Cessation Date Hx Smoking Cessation Counseling Any additional information?: Yes Smoking Status: Current every day smoker (Patient smoked today.) Hematologic Medial History Hematologic Hx - supervisor looping: Hematologic Medical Hx - gum cook Hx of Blood Transfusion No 11/27/24 14:17 [...] confused, unrespo /Reproduction History /Reproductive History - supervisor looping: /Reproductive Hx- supervisor looping Hx Now No 11/27/24 14:17 Gestational Age [...] Cosigner Signature: Date CC: ~ Signed [facility]05-06-2025 Radiology Diagnostic study note [facility] Imaging Services [address] [place] [address] Upper GI/w Small Bowel MR#: [id number] Acct: [id number] Name: JULI DAVIDSON Rep #: [id number] : 1960 M 64 From: Jose Sidhu MD PCP: Dr. Elgin Honeycutt MD Status: ESTEPHANIE AVILA Study:Upper GI/w Small Bowel Date of Exam: 11/06/24 Exam# [id number] Ordering Dr: Elgin Honeycutt MD EXAM: Double [...] Normal-appearing jejunal and ileal mucosa. Reading Location: [place] [address] CC: Dr. Elgin Honeycutt MD ~ Color Separation Photographer: Signed [facility]03-27-2025 Radiology Diagnostic study note [facility] Imaging Services [address] [place] [address] Thoracic Spine 3 Views MR#: [id number] Acct: [id number] Name: JULI DAVIDSON Rep #: [id number] : 1960 M 64 From: Steven Kong MD PCP: Dr. Elgin Honeycutt MD Status: [facility] Kamryn AVILA Study:Thoracic Spine 3 Views Date of Exam: 09/26/24 Exam# [id number] Ordering Dr: Quirino Perry MD EXAM: X-ray [...] no other compression deformity identified. Reading Location: [facility] CC: Dr. Quirino Perry MD; Dr. Elgin Honeycutt MD ~ Color Separation Photographer: Signed [facility]03-26-2025 Radiology Diagnostic study note [facility] Imaging Services [address] [place] [address] Lumbar Spine 2 or 3 Views MR#: [id number] Acct: [id number] Name: JULI DAVIDSON Rep #: [id number] : 1960 M 64 From: Steven Kong MD PCP: Dr. Elgin Honeycutt MD Status: ESTEPHANIE AVILA Study:Lumbar Spine 2 or 3 Views Date of Exam: 09/26/24 Exam# [id number] Ordering Dr: uQirino Perry MD EXAM: Lumbar spine 2 or three views CLINICAL HISTORY: Concern for compression fracture, chronic pain COMPARISON: Thoracic spine CT 08/29/2023 TECHNIQUE: AP and lateral views lumbosacral spine, 2 images FINDINGS: 5 cnd-nyz-shoiniq lumbar vertebral type bodies identified. Overlying bowel gas on the AP view. No acute compression fracture or malalignment. The disc spaces appear within limits. Previously noted compression fracture deformityof T12 again seen now with vertebroplasty present. Aortoiliac atherosclerotic calcifications. Numerous calcifications within the area of the head and neck of the pancreas noted. RAD/Lumbar Spine 2 or 3 Views IMPRESSION: 5 wfd-xbp-vpcmutv lumbar vertebral type bodies identified. Overlying bowel gas on the AP view. No acute compression fracture or malalignment. The disc spaces appear within limits. Previously noted compression fracture deformityof T12 again seen now with vertebroplasty present. Reading Location: [facility] CC: Dr. Quirino Perry MD; Dr. Elgin Hoenycutt MD ~ Color Separation Photographer: Signed [facility]03-21-2025 Evaluation note* Diagnosis Onset Date Resolution Status Admit Date Chronic pancreatitis chronic Tobin h 2024 12:28pm [facility] Work Phone: [phone]) [phone] Evaluation note* Diagnosis Onset Date Resolution Status Admit Date Chronic pancreatitis chronic Tobin h 2024 12:28pm Severe malnutrition acute November 022024 1:59pm Chronic pancreatitis chronic November 27, 2024 1:59pm [facility] Work Phone: [phone]) [phone] Hospital Discharge instructions Additional Instructions Discharge home alone 09/15/2023 with no needs.[facility] Work Phone: 1([phone]) 328-768703-12-2024 Discharge summary Author Elgin Honeycutt [facility] September 13, 2023 7:56am Note Date/Time September 13, 2023 7:5 3am [facility] Medical Records Department [address] [place] [address] Discharge Summary 09/13/23 0750 MR#: [id number] Acct: [id number] Name: JULI DAVIDSON Rep #:[id number] : 1960 63 From: Elgin Honeycutt MD PCP: Care Physician,No Primary Status :ADM IN Location: [place] [address] Providers Date of Admission: 09/05/23 Primary Care [...] Protocol: Document 09/06/23 15:22 (Rec: 09/06/23 15:22 [id number]) Nutrition Malnutrition Evidence of Malnutrition Exists Yes [...] Recommendations/Changes continue regular diet- texture /consistency per LAB COURIER; magic cup milkshake BID for additional nutrition [...] % (Auto) 54.5, Lymph % (Auto) 28.4, [place] % (Auto) 11.6 H, Eos % (Auto) 2.1, Baso % (Auto) 2.2 H, Absolute Neuts (auto) 3.7, Absolute Lymphs (auto) 1.94, Nucleated RBC % 0, Sodium 139, Potassium 4.1, Chloride 108 H, Carbon Dioxide 28.0, Anion Gap 3 L, BUN 5 L, Creatinine 0.61 L, Estim Creat Clear Calc 92.98, Est GFR (MDRD) Af Praz230, Est GFR (MDRD) Non-Af 142, BUN/Creatinine Ratio [...] can be placed): Home, Self Care 09/13/23 075 <Electronically signed by Elgin Honeycutt MD> Cosigner Signature (if applicable): CC: Dr. Elgin Honeycutt MD; No Primary Care Physician~ Signed [facility] Work Phone: [phone] 376-141403-08-2024 History and physical note Author [facility] September 09, 2023 1:12pm Note Date/Time September 05, 2023 9:38 pm [facility] Medical Records Department [address] [place] [address] History & Physical Exam 09/05/232132 MR#: [id number] Acct: [id number] Name: JULI DAVIDSON Rep #:[id number] : 1960 63 From: Elgin Honeycutt MD PCP: Care Physician,No Primary Status :ADM IN Location: [facility] TCU20-1 HPI - General General Date of Admission: 09/05/23 Date of Service: 09/06/23 Chief Complaint: Here for rehabilitation. HPI Narrative 08/29/2023 JULI DAVIDSON, is a 63 Male who presents to [facility] ED with fall. Fell, could not get up, on floor for hours, crawled to get help. Flu 3 weeks ago,. 12 beers per day, urinates in bucket to avoid moving. Low back pain. CT showed T12 compression fracture. IV fluids, pain medication. 08/29/2023 Admit to [facility]. Alcohol withdrawal protocol. PT/OT for falls. Consider [...] rehabilitation, strengthening, prior to discharge home alone. 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 09/06/23 1717<Electronically signed by Elgin Honeycutt MD> Cosigner Signature (if applicable): cc: Dr. Elgin Honeycutt MD; No Primary Care Physician ~* Signed ADDENDUM by Dr. Elgin Honeycutt MD on 09/09/23 at 1312 Addendum Cluster headache - Maxalt 10mg po x 1 prn. 09/09/23 1312<Electronically signed by Elgin Honeycutt MD> Cosigner Signature (if applicable): cc: Dr. Elgin Honeycutt MD; No Primary Care Physician ~* Signed [facility] Work Phone: 1([phone]) 757-433403-05-2024 Progress note Author Ivonne Jimenez [facility] September 06, 2023 2:54pm Note Date/Time September 06, 2023 2:45 pm [facility] Medical Records Department [address] [place] [address] [place] [address] Progress Note - Pharmacy 09/06/23 1436 MR#: [id number] Acct: [id number] Name: JULI DAVIDSON Rep #:[id number] : 1960 63 From: Ivonne Jimenez PCP: Care Physician,No Primary Status :ADM IN Location: TCU TC20-1 TCU RX Drug Regimen Review Subjective/Objective Subjective/Objective: [...] Doxepin Hydrochloride 10 Mg Capsule PO QHS ON LICENSE OF [facility] Enoxaparin Sodium 40 mg 09/06/23 06:00 09/06/23 [...] 09:55 Multivitamins,Therapeutic Tablet PO 1 tablet BREAKFAST ON LICENSE OF [facility] Administration Nicotine 21 mg 09/06/23 10:00 09/06/23 09:58 Nicotine 21 Mg Patch TD 21 mg DAILY ALMA ROSA Administration Nutritional Formula (Lactose Free) 120 ml 09/06/23 07:45 09/06/23 14:13 Ensure Plus High Protein 120 Ml Liquid PO Not Given TIDCM ON LICENSE OF [facility] Nystatin 500,000 unit 09/06/23 12:00 [...] PO Daily, Multivitamin 1 tab PO Daily, [id number] PO Daily. Please continue to monitor for [...] 1454 <Electronically signed by Ivonne Jimenez> Ivonne Jimenez Cosigner Signature (if applicable): CC: ~ Signed [facility] Work Phone: [phone]) [phone] Discharge summary Author Jarret Romero [facility] September 05, 2023 4:19pm Note Date/Time September 05, 2023 4:06 pm [facility] Medical Records Department [address] [place] [address] Discharge Summary 09/05/23 1603 MR#: [id number] Acct: [id number] Name: JULI DAVIDSON Rep #:[id number] : 1960 63 From: Jarret Lee PCP: Care Physician,No Primary Status :ADM IN Location: [place] [address] Providers Date of Admission: 08/29/23 Primary Care [...] on thiamine and folate acid. CIWA monitor. channel program manager consulted. 3/4: No acute seizures. Patient is [...] Patient does not have dilated power of insurance defense attorney forhealth. After discussion of benefits/risks procedures involved [...] 1-10 or Temp > 100.4 F #0tabs 03/04/24 folic acid 1 mg tablet 1 mg [...] 08/30/23 12:12 RMA (Rec: 08/30/23 12:12 RMA [id number]) Nutrition Malnutrition Evidence of Malnutrition Exists Yes [...] at meals; will adjust food consistency to zkso-td-iyze per pt request for softer foods. Will [...] Primary [Primary Care Provider] - Vel Koch HOTEL SALES MANAGER, HOTEL SALES MANAGER-C [Non-Staff] - See Referral Note (As instructed by case management) Quirino Perry MD [Med Staff - Active Staff] - Within 2 Weeks (For T12 vertebral fracture.) Disposition Disposition (needs filled in before D/C Order can be placed): Home, Self Care Charges/Coding Visit Charges Inpatient E&M: 20776 Disch Hosp >30min 09/05/23 1619 <Electronically signed by Jarret Romero MD> Cosigner Signature (if applicable): CC: Dr. Jarrte Romero MD; No Primary Care Physician~ Signed [facility] Work Phone: [phone]) [phone] Discharge summary Author Jarret Romero [facility] September 05, 2023 4:03pm Note Date/Time September 05, 2023 4:00 pm [facility] Medical Records Department [address] [place] [address] Transfer to [facility] MR#: [id number] Acct: [id number] Name: JULI DAVIDSON Rep #:[id number] : 1960 63 From: Jarret Lee PCP: Care Physician,No Primary Status :ADM IN Certification of patient admission REQUIRED AT TIME OF ADMISSION. I CERTIFY THAT [facility] ARE REQUIRED TO BE GIVEN ON AN IN-PATIENT BASIS BECAUSE OF THE ABOVE NAMED PATIENT'S NEED FOR SENIOR CARE CARE ON A CONTINUING BASIS FOR THE CONDITION(S) FOR WHICH HE/SHE WAS RECEIVING IN-PATIENT HOSPITAL SERVICES PRIOR TO HIS/HER TRANSFER TO [facility]. 09/05/23 1603<Electronically signed by Jarret Romero [...] on thiamine and folate acid. CIWA monitor. channel program manager consulted. 08/30: Overall withdrawal symptoms are better. [...] Patient does not have dilated power of insurance defense attorney forhealth. After discussion of benefits/risks procedures involved [...] 15:31 EST Reading Location ID and State: [address] [place] [address] , Service support , Allergies/Procedures Done in [...] at meals; will adjust food consistency to sctj-dq-hocy per pt request for softer foods. Will [...] Primary [Primary Care Provider] - Vel Koch HOTEL SALES MANAGER, HOTEL SALES MANAGER-C [Non-Staff] - See Referral Note (As instructed by case management) Disposition Disposition (needs filled in before D/C Order can be placed): Home, Self Care 09/05/23 1603 <Electronically signed by Jarret Romero MD> Cosigner Signature (if applicable): CC: Dr. Kennedy Echeverria DO; Dr. Anu Wong DO; Dr. Jarret Romero MD; [facility] ~ [facility] Work Phone: 1([phone]) [phone] Progress note Author Anu Wong [facility] September 04, 2023 1:37pm Note Date/Time September 04, 2023 1:37 pm [facility] Medical Records Department [address] [place] [address] Progress Note - Hospitalist 09/04/23 1333 MR#: [id number] Acct: [id number] Name: JULI DAVIDSON Rep #:[id number] : 1960 63 From: Anu Wong DO PCP: Care Physician,No Primary Status :ADM IN Location: [address] Reason for Visit Reason for Visit: Fall [...] 08/30/23 12:12 RMA (Rec: 08/30/23 12:12 RMA [id number]) Nutrition Malnutrition Evidence of Malnutrition Exists Yes [...] at meals; will adjust food consistency to kiwn-rd-qcyb per pt request for softer foods. Will [...] % (Auto) 53.2, Lymph % (Auto) 23.6, [place] % (Auto) 18.8 H, Eos % (Auto) [...] on admission Charges/Coding Visit Charges Inpatient E&M: 34341 Subs Hosp L1 09/04/23 1337 <Electronically signed by Anu Wong DO> Cosigner Signature (if applicable): CC: ~ Signed [facility] Work Phone: 1(127) 615-563503-02-2024 Progress note Author Anu Wong [facility] September 03, 2023 2:51pm Note Date/Time September 03, 2023 2:51 pm [facility] Medical Records Department [address] [place] [address] Progress Note - Hospitalist 09/03/23 1442 MR#: [id number] Acct: [id number] Name: JULI DAVIDSON Rep #:[id number] : 1960 63 From: Anu Wong DO PCP: Care Physician,No Primary Status :ADM IN Location: [place] [address] Reason for Visit Reason for Visit: Fall [...] 08/30/23 12:12 RMA (Rec: 08/30/23 12:12 RMA [id number]) Nutrition Malnutrition Evidence of Malnutrition Exists Yes [...] at meals; will adjust food consistency to wokq-ti-rzsp per pt request for softer foods. Will [...] on admission Charges/Coding Visit Charges Inpatient E&M: 28468 Subs Hosp L1 09/03/23 1451 <Electronically signed by Anu Wong DO> Cosigner Signature (if applicable): CC: ~ Signed [facility] Work Phone: 1(153) 717-787903-01-2024 Progress note Author Anu Wong [facility] September 02, 2023 4:08pm Note Date/Time September 02, 2023 4:08 pm [facility] Medical Records Department [address] [place] [address] Progress Note - Hospitalist 09/02/23 1607 MR#: [id number] Acct: [id number] Name: JULI DAVIDSON Rep #:[id number] : 1960 63 From: Anu Wong DO PCP: Care Physician,No Primary Status :ADM IN Location: [facility] FT699-3 Hospitalist Note I was notified later this afternoon that the patient has changed his mind and now is amenable to going to rehab. He will need pre-CERT so he will be here through the weekend with plans to discharge to TCU as soon as pre-CERT is obtained. Patient is medically stable for discharge at this time. Visit Charges Inpatient E&M: 84998 Subs Hosp L2 09/02/23 1608 <Electronically signed by Anu oWng DO> Cosigner Signature (if applicable): CC: ~ Signed [facility] Work Phone: 1([phone]) 545-123503-01-2024 Discharge summary Author Anu Wong [facility] September 02, 2023 1:32pm Note Date/Time September 02, 2023 1:19 pm [facility] Medical Records Department [address] [facility] [place] [address] Discharge Summary 09/02/23 1319 MR#: [id number] Acct: [id number] Name: JULI DAVIDSON Rep #:[id number] : 1960 63 From: Anu Wong DO PCP: Care Physician,No Primary Status :ADM IN Location: [place] [address] Providers Date of Admission: 08/29/23 Date of [...] 08/30/23 12:12 RMA (Rec: 08/30/23 12:12 RMA [id number]) Nutrition Malnutrition Evidence of Malnutrition Exists Yes [...] at meals; will adjust food consistency to yjky-ok-vmmo per pt request for softer foods. Will [...] Primary [Primary Care Provider] - Vel Koch HOTEL SALES MANAGER, HOTEL SALES MANAGER-C [Non-Staff] - See Referral Note (As instructed by case management) Disposition Disposition (needs filled in before D/C Order can be placed): Home, Self Care Charges/Coding Visit Charges Inpatient E&M: 57488 Disch Hosp >30min 09/02/23 1332 <Electronically signed by Anu Wong DO> Cosigner Signature (if applicable): CC: HOTEL SALES MANAGER-C Vel Koch; Dr. Anu Wong DO; No Primary Care Physician~ Signed [facility] Work Phone: 1(184) 222-304902-29-2024 Progress note Author Anu Wong [facility] September 01, 2023 3:32pm Note Date/Time September 01, 2023 3:03pm [facility] Medical Records Department [address] [place] [address] Progress Note - Hospitalist 09/01/23 1457 MR#: [id number] Acct: [id number] Name: MOLLY DAVIDSONN Donald Rep #:[id number] : 1960 63 From: Anu Wong DO PCP: Care Physician,No Primary Status :ADM IN Location: [place] [id number] Reason for Visit Reason for Visit: Fall [...] 08/30/23 12:12 RMA (Rec: 08/30/23 12:12 RMA [id number]) Nutrition Malnutrition Evidence of Malnutrition Exists Yes [...] at meals; will adjust food consistency to ybik-id-qugn per pt request for softer foods. Will [...] -Continue PT/OT -Patient likely not qualify for group home facility and is adamant that he would [...] on admission Charges/Coding Visit Charges Inpatient E&M: 50946 Subs Hosp L2 09/01/23 1503 <Electronically signed by Anu Wong DO> Cosigner Signature (if applicable): CC: ~ Signed ADDENDUM by Dr. Anu Wong DO on 09/01/23 at 1531 Addendum Severe malnutrition -Supplements added and dietitian is following 09/01/23 1531<Electronically signed by Anu Wong DO> Cosigner Signature (if applicable): cc: ~* Signed [facility] Work Phone: 1(783) 812-381402-28-2024 Progress note Author Anu Wong [facility] August 31, 2023 12:23pm Note Date/Time August 31, 2023 12:23pm [facility] Medical Records Department [address] [facility] [place] [address] Progress Note - Hospitalist 08/31/23 1209 MR#: [id number] Acct: [id number] Name: JULI DAVIDSON Rep #:[id number] : 1960 63 From: Anu Wong DO PCP: Care Physician,No Primary Status :ADM IN Location: [place] [address]1 Reason for Visit Reason for Visit: Fall [...] 08/30/23 12:12 RMA (Rec: 08/30/23 12:12 RMA [id number]) Nutrition Malnutrition Evidence of Malnutrition Exists Yes [...] at meals; will adjust food consistency to vycr-wv-whng per pt request for softer foods. Will [...] % (Auto) 64.5, Lymph % (Auto) 21.6, [place] % (Auto) 9.8, Eos % (Auto) 2.3, [...] -Continue PT/OT -Patient likely not qualify for group home facility and is adamant that he would [...] on admission Charges/Coding Visit Charges Inpatient E&M: 22460 Subs Hosp L2 08/31/23 1223 <Electronically signed by Anu Wong DO> Cosigner Signature (if applicable): CC: ~ Signed [facility] Work Phone: 1(870) 266-546002-27-2024 Progress note Author Jarret Romero [facility] August 30, 2023 1:56pm Note Date/Time August 30, 2023 1:57pm [facility] Medical Records Department [address] [place] [id number] Progress Note - Hospitalist 08/30/23 1349 MR#: [id number] Acct: [id number] Name: JULI DAVIDSON Rep #:[id number] : 1960 63 From: Jarret Lee PCP: Care Physician,No Primary Status :ADM IN Location: [place] [address] Reason for Visit Reason for Visit: Diagnoses [...] 08/30/23 12:12 RMA (Rec: 08/30/23 12:12 RMA [id number]) Nutrition Malnutrition Evidence of Malnutrition Exists Yes [...] at meals; will adjust food consistency to mekz-nq-zkep per pt request for softer foods. Will [...] (Auto) 69.9, Lymph % (Auto) 12.1 L, [place] % (Auto) 16.5 H, Eos % (Auto) [...] Sl. Cloudy, Urine pH 7.0, Ur Specific [place] 1.005, Urine Protein Negative, Urine Glucose (UA) [...] on thiamine and folate acid. CIWA monitor. channel program manager consulted. 08/30: Overall withdrawal symptoms are better. [...] Patient does not have dilated power of insurance defense attorney forhealth. After discussion of benefits/risks procedures involved [...] 15:31 EST Reading Location ID and State: [facility] / [place] , Service support , Charges/Coding Visit Charges Inpatient E&M: 89676 Subs Hosp L2 08/30/23 1356 <Electronically signed by Jarret Romero MD> Cosigner Signature (if applicable): CC: ~ Signed [facility] Work Phone: 1(171) 406-634602-26-2024 Discharge summary Author Ida Blanca [facility] August 29, 2023 9:18pm Note Date/Time August 29, 2023 2:37pm [facility] Medical Records Department [address] [place] [address] Emergency Department Summary 08/29/23 MR#: [id number] Acct: [id number] Name: JULI DAVIDSON Rep #:[id number] : 1960 63 From: Ida Blanca MD PCP: Care Physician,No Primary Status :ADM IN Location: [place] [id number] <Statement entered by Ida Blanca MD - [...] No nausea or vomiting. No extremity pain. [facility] Medical History unable to obtain Home Medications [...] (Auto) 69.9 Lymph % (Auto) 12.1 L [place] % (Auto) 16.5 H Eos % (Auto) [...] Sl. Cloudy Urine pH 7.0 Ur Specific [place] 1.005 Urine Protein Negative Urine Glucose (UA) [...] problems, contact your Primary Care Provider. Call Face to Face Live [facility] ([phone]) or report to the closest Emergency Room. Call 911 if necessary. 08/29/232117 <Electronically signed by Ida Blanca MD> Cosigner Signature (if applicable): 08/29/23 1607 <Electronically signed by Li RESENDIZ> CC: No Primary Care Physician ~ Signed [facility] Work Phone: 1(776) 102-833502-26-2024 History and physical note Author Jarret Romero [facility] August 29, 2023 4:48pm Note Date/Time August 29, 2023 3:57pm [facility] Medical Records Department [address] [place] [address] H&P Exam - Hospitalist 08/29/23 1557 MR#: [id number] Acct: [id number] Name: JULI DAVIDSON Rep #:[id number] : 1960 63 From: Jarret Lee PCP: Care Physician,No Primary Status :ADM IN Location: [facility] LE147-2 HPI - General General Date of Admission: [...] and started on IV fluid normal saline. [facility] Medical History unable to obtain Home Medications [...] (Auto) 69.9, Lymph % (Auto) 12.1 L, [place] % (Auto) 16.5 H, Eos % (Auto) 0.2, Baso % (Auto) 0.4, Absolute Neuts (auto)3.2, Absolute Lymphs (auto) 0.56 L, Nucleated RBC % 0, Differential Comment SCANNED, Diff Path Review May foll, Platelet Estimate MKD DEC, Sodium 131 L, [...] Sl. Cloudy, Urine pH 7.0, Ur Specific [place] 1.005, Urine Protein Negative, Urine Glucose (UA) [...] Signed: Og Benavides MD at 15:23 EST Reading Location ID and State: [facility] / [place] , Service support , Chest X-Ray 08/29/23 15:06 IMPRESSION: 1. [...] on thiamine and folate acid. CIWA monitor. channel program manager consulted. 2. Acute on recurrent fall probably [...] Patient does not have dilated power of insurance defense attorney forhealth. After discussion of benefits/risks procedures involved with full code,DNR CC arrest and DNR CC, the patient opted for DNR CC arrest with no intubation. Patient states when my and time comes, let me go. Patient doesn't want artificial life support including intubation, tube feed, ventilator and/chest compression, central venous catheter, vasopressor and DC shock if needed Total time spent in turs-mm-frck encounter in discussion of advanced directive 17 minutes. Laboratory Results 08/29/23 14:45: WBC 4.6, RBC 4.40 L, Hgb 14.2, Hct 39.7 L, MCV 90.2, MCH 32.3 H,MCHC 35.8, RDW Std Deviation 45.4 H, RDW Coeff of Yousuf 13.8, Plt Count 49 L*, MPV11.9, Immature Gran % (Auto) 0.900, Neut % (Auto) 69.9, Lymph % (Auto) 12.1 L, [place] % (Auto) 16.5 H, Eos % (Auto) 0.2, Baso % (Auto) 0.4, Absolute Neuts (auto)3.2, Absolute Lymphs (auto) 0.56 L, Nucleated RBC % 0, Differential Comment SCANNED, Diff Path Review November foll, Platelet Estimate MKD DEC, PT 12.5, INR [...] Sl. Cloudy, Urine pH 7.0, Ur Specific [place] 1.005, Urine Protein Negative, Urine Glucose (UA) [...] 15:31 EST Reading Location ID and State: [facility] / [place] , Service support , Charges/Coding Visit Charges Inpatient E&M: 95049 Init Hosp L3 Procedures Hospitalists Procedures: 09925 Advncd Care Plan 30 Min 08/29/23 1648 <Electronically signed by Jarret Romero MD> Cosigner Signature (if applicable): CC: Dr. Jarret Romero MD; No Primary Care Physician~ Signed [facility] Work Phone: Discharge summary Author Rex Le [facility] Note Date/Time February 03, 2025 7:4 8am [facility] Medical Records Department [address] [place] [address] Emergency Department Summary 02/03/25 MR#: [id number] Acct: [id number] Name: JULI DAVIDSON Rep #:[id number] : 1960 64 From: Rex Oconnor PCP: Care Physician,No Primary Status :REG ER Location: ED HPI HPI - Fall History of Present Illness Chief Complaint: Fall Informant: patient and EMS Narrative Narrative: Presents by EMS from the large multiple falls. Positive alcohol use this evening. States he drank more than normal. He was going back to his room we could not open the door he tumbled hitting the door and wall. Did not lose consciousness. He denies being on any blood thinners. Tetanus shot was 2 yearsago per patient. Denies headache neck pain chest pains. Bystanders called EMS. Reports recent cataract repair. Denies vision changes. PFSH PFSH Medical History Wears glasses Wears dentures [...] ys #5 ea 07/02/24 Unknown Rx (Lidoderm) pantoprazole 40 mg tablet,delayed 40 mg PO BID #60 tab s 11/27/24 Unknown Rx release sucralfate 1 gram tablet (Carafate) 1 g PO BID #60 tab s 11/27/24 Unknown Rx Allergy/AdvReac Type Severity Reaction Status Date / Time No Known Allergies Allergy Verified 02/03/25 02:59 Surgical History History of colonoscopy History of [...] ROS ROS ED Constitutional Constitutional ED: Denies fever(s) Cardiovascular Cardiovascular: Denies chest pain Respiratory/Chest Respiratory/Chest: Denies cough Gastrointestinal Gastrointestinal: Denies diarrhea or vomiting Musculoskeletal Musculoskeletal: Denies none Integumentary Reports Abrasions and wounds; Denies rash Neurologic Neurologic: Denies weakness EXAM Physical Exam Const Vital Signs: 02/03/25 02:54 02/03/25 02:59 Temperature 97.5 F L Temperature Source Oral Pulse Rate 85 Respiratory Rate 18 Respiratory Effort Normal Blood Pressure 117/77 Blood Pressure Mean 90 Pulse Ox 97 Oxygen Delivery Method Room Air Positive well nourished and well developed Constitutional Narrative: Alcohol odor, patient is alert orient x 3 he is following commands. General Appearance ED: well developed HEENT Reports normocephalic and moist mucous membranes HEENT Narrative: Left frontal abrasions with dried blood. Right brow noted laceration 2.5 cm with dried blood. Tender palpation around the eye. No proptosis or entrapment. Eyes PERRL and EOMs intact bilaterally Neck Neck Narrative: C-collar: Chest Wall inspection of chest normal and palpation of chest normal Resp normal respiratory effort and clear to auscultation bilaterally Cardio regular rate, regular rhythm and no murmurs GI normal to inspection, nondistended, normoactive bowel sounds and non-tender Palpation: soft Narrative: Incontinence of urine down his pants. Back/Spine Back/Spine Narrative: No midline back tenderness no step-off no ecchymosis. Extremity Extremity Narrative: Left upper extremity: Multiple abrasions distal forearm and hand there is no deformities. No bony tenderness. Right upper extremity: Multiple abrasions forearm and hand, no active bleeding. Lower extremities: Full range of motion negative logroll. There were bilateral knee abrasions no bony tenderness. General Extremety ED: Negative for edema General Extremity: Negative for edema Neuro oriented x3 and CN's II-XII intact bilaterally Motor Exam: strength 5/5 throughout Skin Skin Narrative: See above MDM MDM MDM Narrative Medical decision making narrative: Interventions / MDM: Differential diagnosis: Alcohol intoxication, head injury, facial laceration, multiple abrasions Diagnosis considered but do not suspect: Intracranial hemorrhage fractures however CT negative. My EKG interpretation: N/A Imaging independently reviewed and interpreted by myself: CT brain/cervical spine/facial bones: No fracture noted. Also read by radiology. Laceration softtissue defect of right brow. External documents reviewed: N/A Test considered but not ordered:N/A ED course: Fall with alcohol use. Head injury laceration above the brow multiple abrasions. Trauma scans head neck and face ordered. Will prep for laceration repair. Trauma scans negative. Laceration repaired. Patient be monitored more clinically sober ambulated prior to discharge. Patient signed out to oncoming physician. Procedure note: Laceration repair. Verbal consent. Normal sterile conditions. 2 cc 1% lidocaine used for local analgesia above the right brow. Wound was cleansed with normal saline. No gross foreign bodies noted. Wound was closed in a total of 3, 6-0 nylon simple interrupted sutures. Good approximation. Bacitracin ointment was placed over abrasion and the laceration wound. Re-evaluation: stable Disposition discussed with patient/family/significant other: Case discussed with consulting clinician: N/A This note was generated with Meebler dictation software. It may contain incorrectwords, spelling, and punctuation that were not noted in checking the note beforesigning. Radiography Diagnostic Testing: Clinical Impression(s) from Imaging Studies Brain CT 02/03/25 03:13 IMPRESSION: No acute intracranial findings Reading Location: [facility]-[address] 02/03/25 03:13 IMPRESSION: No acute injury Reading Location: [facility] Facial/Sinus 02/03/25 03:13 IMPRESSION: Anterior scalp laceration. Reading Location: [facility] Discharge Plan Triage Chief Complaint: Fall ED Provider: Rex Mazariegos Dx/Rx/DC Orders Clinical Impression: Alcohol intoxication, Falls, Head injury, Face lacerations, Abrasion, multiple sites Instructions: ED Abrasion, ED Alcohol Intoxication, ED Head Injury (Adult), ED FACIAL LACERATION Suture Tape Prescriptions: No Action thiamine HCl (vitamin B1) [Vitamin B-1] 100 mg Tablet 100 mg PO DAILY 30 Days Qty: 30 0RF nicotine 21 mg/24 hr Patch 24 Hour 21 mg transdermal DAILY 30 Days Qty: 30 0RF folic acid 1 mg Tablet 1 mg PO DAILYCM 30 Days Qty: 30 0RF gabapentin 800 mg tablet 800 mg PO TID cyclobenzaprine 10 mg tablet 10 mg PO TID PRN (Reason: Muscle Spasm) Qty: 15 0RF lidocaine [Lidoderm] 5 % adhesive patch,medicated 1 patch topical DAILY 5 Days Qty: 5 0RF Rx Instructions: leave on most painful area for up to 12 hrs sucralfate [Carafate] 1 gram tablet 1 g PO BID Qty: 60 1RF pantoprazole 40 mg tablet,delayed release (DR/EC) 40 mg PO BID Qty: 60 2RF Primary Care Provider: Care Physician,No Primary Referrals: Calli Dotson MD [Med Staff - Active Staff] - 7 Days for suture removal Care Physician,No Primary [Primary Care Provider] - Activity Restrictions/Additional Instructions: CT head neck and face are negative. 3 sutures placed above your brow. Multipleabrasions. Wound care daily. Follow-up in 1 week for suture removal. Print Language: Croatian Disposition Disposition: Home, Self Care What to do if you have Problems For any increased pain, shortness of breath, bleeding, nausea or vomiting, chestpain, or any unexpected problems, contact your Primary Care Provider. Call [facility] ([phone]) or report to the closest Emergency Room. Call 911 if necessary. 02/03/25 0709 <Electronically signed by Rex Oconnor> Cosigner Signature (if applicable): CC: No Primary Care Physician ~ Signed ADDENDUM by Dr. Nii Claros DO on 02/03/25 at 0748 Patient was signed out to me. At the time of signout patient was sleeping. Plan was to discharge patient once he awakens. Patient awoke. He is stable. Drinking coffee. He was able to ambulate in the emergency department without difficulty. Patient stable to discharge home. 02/03/25 0748<Electronically signed by Nii Claros DO> Cosigner Signature (if applicable): cc: No Primary Care Physician ~* Signed [facility] Work Phone: Evaluation + Plan note Future Appointments Appointment Date:06/23/2021 08:00:00 AM Scheduled Provider:VEL KOCH APRN, CNP Location:[facility] [place] Appointment Type:PC OV Follow Up Future Scheduled Tests Radiology* US Breast Bilateral Limited 06/09/21 * MA Mammo Diagnostic Bilateral w/Kyree 06/03/21 [facility] Evaluation + Plan note Future Appointments Appointment Date:07/09/2021 03:00:00 PM Scheduled Provider: Location:[facility] [employer] Appointment Type:CV HOTEL SALES MANAGER Appointment Date:09/11/2021 09:30:00 AM Scheduled Provider: [...] * MA Mammo Diagnostic Bilateral w/Kyree 06/03/21 [facility] Evaluation + Plan note Future Appointments Appointment Date:09/17/2021 02:00:00 PM Scheduled Provider: Location:[facility] [employer] Appointment Type:CV OV Appointment Date:09/22/2021 08:20:00 AM Scheduled Provider:VEL KOCH APRN, CNP Location:[facility] [place] Appointment Type:PC OV Future Scheduled Tests Laboratory* C-Reactive Protein 08/20/21 * Sedimentation Rate Automated 08/20/21 [facility] Evaluation + Plan note Future Appointments Appointment Date:10/22/2021 01:30:00 PM Scheduled Provider: Location:[facility] [employer] Appointment Type:CV OV Appointment Date:12/10/2021 09:00:00 AM Scheduled Provider: Location:[facility] [place] Appointment Type:PC Nurse Lab Appointment Date:12/24/2021 09:00:00 AM Scheduled Provider:VEL KOCH APRN, CNP Location:[facility] [place] Appointment Type:PC OV Follow Up Appointment Date:03/18/2022 09:45:00 AM Scheduled Provider: Location:[facility] [place] Appointment Type:PC Nurse Lab Appointment Date:03/25/2022 09:00:00 AM Scheduled Provider:VEL KOCH APRN - COLOR DEVELOPER Location:[facility] [place] Appointment Type:PC OV Follow Up Future Scheduled Tests Laboratory* C-Reactive Protein 08/20/21 * Prostate Specific Antigen 03/25/22 * Lipid Profile 03/25/22 * Microalbumin Level Urine 03/25/22 * Sedimentation Rate Automated 08/20/21 * Vitamin D Level 12/23/21 * Vitamin D Level 03/25/22 * Complete Metabolic Panel 03/25/22 [facility] Evaluation note* Diagnosis Onset Date Resolution Status Acute hyponatremia acute Alcohol abuse acute Recurrent falls acute Severe malnutrition acute T12 compression fracture acu te Thrombocytopenia acute Transaminitis acute Acute hyperactive alcohol withdrawal delirium resolved [facility] Work Phone: Evaluation note* Diagnosis Onset Date Resolution Status Severe malnutrition acute Acute hyperactive alcohol withdrawal delirium resolved Acute hyponatremia resolved Transaminitis resolved Debility acute Fall acute Hyponatremia acute Rhabdomyolysis acute [facility] Work Phone: Evaluation note* Diagnosis Onset Date Resolution Status Severe malnutrition acute Acute hyperactive alcohol withdrawal delirium resolved Acute hyponatremia resolved Transaminitis resolved Debility acute Fall resolved Hyponatremia resolved Rhabdomyolysis resolved [facility] Work Phone: Evaluation noteNo assessment information available [facility] Work Phone: Hospital course Narrative No data available for this section [facility] Hospital Discharge instructions No data available for this section [facility] Hospital Discharge instructionsAdditional Instructions CT head neck and face are negative. 3 sutures placed above your brow. Multiple abrasions. Wound care daily. Follow-up in 1 week for suture removal.[facility] Work Phone: Progress note No data available for this section [facility] Reason for referral (narrative)No reason for referral information availableWTuscarawas [facility] Work Phone: Summary Purpose Family History No Family History Records FoundNo Family History Records Found Advance Directives No Advanced Directives Records Found Advance Directive Response Recorded Date/ Time Living Will No August 29 5:16pm Power of Group Home Worker No August 29, 2023 5:16pm Advance Directive Response Recorded Date/ Time Living Will No September 07, 2023 4:11pm Power of Group Home Worker No September 06 4:11pm Advance Directive Response Recorded Date/ Time Living Will No July 02 10:34am Do you have a Healthcare Power of Group Home Worker? No July 02, 2024 10:34am Advance Directive Response Recorded Date/ Time Do you have a Healthcare Power of Group Home Worker? No November 27, 2024 2:17pm Advance Directive Response Recorded Date/ Time Do you have a Healthcare Power of Group Home Worker? No November 27, 2024 2:17pm Do you have a Healthcare Power of Group Home Worker? No February 03, 2025 2:58am Advance Directive Response Recorded Date/ Time Do you have a Healthcare Power of Group Home Worker? No February 03, 2025 2:58am Chief Complaint and Reason for Visit Chief [...] lumbar radiculopathy January 22, 2025 9:5 7am lac February 03, 2025 2:5 3am Chief Complaint Admit Date GASTRIC ULCER, ABD PAIN November 06, 2024 7: 52am lumbar radiculopathy January 22, 2025 9:5 7am lac February 03, 2025 2:5 3am LUMBAR RADICULOPATHY February 06, 2025 7: 37am Chief Complaint Admit Date lumbar radiculopathy January 22, 2025 9:5 7am lac February 03, 2025 2:5 3am LUMBAR RADICULOPATHY February 06, 2025 7: 37am LABS March 06, 2025 9:21am Chief Complaint Admit Date lumbar radiculopathy January 22, 2025 9:5 7am lac February 03, 2025 2:5 3am LUMBAR RADICULOPATHY February 06, 2025 7: 37am LABS March 06, 2025 9:21am THORACIC SPONDYLOSIS April 03, 2025 1 2:31pm Additional Source Comments Care Team (unrecognized sect [...] Active Member Role/Relationship Status Dates Dr. Elgin Honeycutt MD Primary Care Provider Active Start: November 27, 2024 Dr. Elgin Honeycutt MD Referring Provider Active Start: November 27, 2024 Dr. Kiko Almanzar DO Attending Provider Active Start: November 27, 2024 Dr. Kiko Almanzra DO Other Provider Active St art: November 27, 2024 Team Status: Inactive Member Role/Relationship Status Dates No Primary Care Physician Primary Care Provider Active Start: January 22, 2025 End: January 22, 2025 Dr. Quirino Perry MD Attending Provider Active Start: January 22, 2025 End: January 22, 2025 Dr. Quirino Perry MD Referring Provider Active Start: January 22, 2025 End: January 22, 2025 Team Status: Inactive Member Role/Relationship Status Dates No Primary Care Physician Primary Care Provider Active Start: February 03, 2025 End: February 03, 2025 Dr. Rex Mazariegos DO Emergency Provider Active Start : February 03, 2025 End: February 03, 2025 Team Status: Inactive Member Role/Relationship Status Dates [...] Active Member Role/Relationship Status Dates Dr. Elgin Honeycutt [...] January 22, 2025 End: January 22, 2025 Team Status: Inactive Member Role/Relationship Status Dates No Primary Care Physician Primary Care Provider Active Start: February 03, 2025 End: February 03, 2025 Dr. Rex Mazariegos DO Attending Provider Active Start : February 03, 2025 End: February 03, 2025 Dr. Rex Mazariegos DO Emergency Provider Active Start : February 03, 2025 End: February 03, 2025 Team Status: Inactive Member Role/Relationship Status Dates No Primary Care Physician Primary Care Provider Active Start: February 06, 2025 End: February 06, 2025 Dr. Quirino Perry MD Attending Provider Active Start: February 06, 2025 End: February 06, 2025 Dr. Quirino Perry MD Referring Provider Active Start: February 06, 2025 End: February 06, 2025 Team Status: Inactive Member Role/Relationship Status Dates Dr. Elgin Honeycutt MD Primary Care Provider Active Start: November 27, 2024 End: November 27, 2024 Dr. Elgin Honeycutt MD Referring Provider Active Start: November 27, 2024 End: November 27, 2024 Dr. Kiko Almanzar DO Attending Provider Active Start: November 27, 2024 End: November 27, 2024 Team Status: Active Member Role/Relationship Status Dates Dr. Elgin Honeycutt [...] January 22, 2025 End: January 22, 2025 Team Status: Inactive Member Role/Relationship Status Dates No Primary Care Physician Primary Care Provider Active Start: February 03, 2025 End: February 03, 2025 Dr. Rex Mazariegos DO Attending Provider Active Start : February 03, 2025 End: February 03, 2025 Dr. Rex Mazariegos DO Emergency Provider Active Start : February 03, 2025 End: February 03, 2025 Team Status: Inactive Member Role/Relationship Status Dates No Primary Care Physician Primary Care Provider Active Start: February 06, 2025 End: February 06, 2025 Dr. Quirino Perry MD Attending Provider Active Start: February 06, 2025 End: February 06, 2025 Dr. Quirino Perry MD Referring Provider Active Start: February 06, 2025 End: February 06, 2025 Team Status: Inactive Member Role/Relationship Status Dates No Primary Care Physician Primary Care Provider Active Start: March 06, 2025 End: March 06, 2025 Dr. Quirino Perry MD Attending Provider Active Start: March 06, 2025 End: March 06, 2025 Dr. Quirino Perry MD Referring Provider Active Start: March 06, 2025 End: March 06, 2025 Team Status: Active Member Role/Relationship Status Dates No Primary Care Physician Primary care physician Activ e Team Status: Inactive Member Role/Relationship Status Dates No Primary Care Physician Primary care physician Activ e Start: January 22, 2025 End: January 22, 2025 Dr. Quirino Perry MD Attending physician Active Start: January 22, 2025 End: January 22, 2025 Dr. Quirino Perry MD Referring Provider Active Start: January 22, 2025 End: January 22, 2025 Team Status: Inactive Member Role/Relationship Status Dates No Primary Care Physician Primary care physician Activ e Start: February 03, 2025 End: February 03, 2025 Dr. Rex Mazariegos DO Attending physician Active Star t: February 03, 2025 End: February 03, 2025 Dr. Rex Mazariegos DO Emergency Department Physician Active Start: February 03, 2025 End: February 03, 2025 Team Status: Inactive Member Role/Relationship Status Dates No Primary Care Physician Primary care physician Activ e Start: February 06, 2025 End: February 06, 2025 Dr. Quirino Perry MD Attending physician Active Start: February 06, 2025 End: February 06, 2025 Dr. Quirino Perry MD Referring Provider Active Start: February 06, 2025 End: February 06, 2025 Team Status: Inactive Member Role/Relationship Status Dates No Primary Care Physician Primary care physician Activ e Start: March 06, 2025 End: March 06, 2025 Dr. Quirino Perry MD Attending physician Active Start: March 06, 2025 End: March 06, 2025 Dr. Quirino Perry MD Referring Provider Active Start: March 06, 2025 End: March 06, 2025 Team Status: Inactive Member Role/Relationship Status Dates No Primary Care Physician Primary care physician Activ e Start: April 03, 2025 End: April 03, 2025 Dr. Quirino Perry MD Attending physician Active Start: April 03, 2025 End: April 03, 2025 Dr. Quirino Perry MD Referring Provider Active Start: April 03, 2025 End: April 03, 2025 (unrecognized sect ion and content) No Status Records FoundNo Status Records Found INFORMATION SOURCE (unrecogn ized section and content) DATE CREATED AUTHOR 10/18/2021 [facility] ([place]) DATE CREATED AUTHOR AUTHOR'S RADHA ATION 05/05/2025 [facility] Goals (unrecognized section and content) Goals [...] BE BASED ON THE PRIMARY CLINICAL RECORDS. [facility]. provides no warranty or guarantee of the accuracy or completeness of information in this document.
== END | disposition home or self-care (01) ==
LOC: OPMRI 08:09
PROVIDERS: Referring Provider Anesthesiology; Visit Provider Anesthesiology
DX: M43.04 Spondylolysis, thoracic region (principal)
CPT/HCPCS: 72146